=== PATIENT | female | born 1960 | race Caucasian/White ===

== ENCOUNTER 2016-05-11 14:49 | Inpatient (IN) | payer OTHER, BC ==
[~2016-05-11] VITALS: Ht 162.6 cm; Wt 77.1 kg
[~2016-05-11 14:49] MED LIST: ACET-1256 PO; ACT/45 PO; AMLO2.5T PO; AMR2 PO; ASPCH81X PO; CALC0.2510 PO; CHOL100010 PO; CYCL25CA5 PO; DENO60SO PO; DEXL30CA5 PO; DTRSR4 PO; FAMO20TA9 PO; FLNIN/ NAE; GLC/500 PO; HYDROCODONE/ACETAMOPHEN 5/325MG TAB PO PRN; ISOS30TA35 PO; LUTE15CA PO; MELA1CAP9 PO; MULT-190 PO; MULTTAB PO; MYCO250C7 PO; NITR0.4S UT; NRN/300 PO; OMEG10007 PO; PRVC/20 PO; REPA1TAB10 PO; SITA50TA PO; TPRSR/25 PO; TRAMADOL HCL 50 MG TAB PO PRN
[2016-05-11] MEDS ORDERED: DEXTROSE 50% 50 ML SYR IV PRN (15:45)
[2016-05-11] MEDS ORDERED: LORAZEPAM 2 MG/ML 1 ML VIAL IV PRN ×2 (15:45→17:45)
[2016-05-11] MEDS ORDERED: GLUCOSE 40% GEL 15 GM TUBE PO PRN (15:45)
[2016-05-11] MEDS ORDERED: MAGNESIUM HYDROXIDE SUSP 30 ML UDC PO PRN (15:45)
[2016-05-11] MEDS ORDERED: ACETAMINOPHEN 325 MG TAB PO PRN ×2 (15:45)
[2016-05-11] MEDS ORDERED: MoRPHine SULFATE 4 MG/ML 1 ML CARP\\VIAL IV PRN (15:45)
[2016-05-11] MEDS ORDERED: ALUMINUM/MAGNESIUM/SIMETH (MAALOX MAX) 30 ML UDC PO PRN (15:45)
[2016-05-11] MEDS ORDERED: PROMETHAZINE HCL INJ 12.5 MG in SODIUM CHLORIDE 0.9% 50ML 50 ML IV PRN (15:45)
[2016-05-11] MEDS ORDERED: MoRPHine SULFATE 2 MG/ML CARP IV PRN (15:45)
[2016-05-11] MEDS ORDERED: DiphenhydrAMINE HCL 50 MG/ML VIAL IV PRN (15:45)
[2016-05-11] MEDS ORDERED: GLUCOSE 10 TABS/TUBE PO PRN (15:45)
[2016-05-11] MEDS ORDERED: ZOLPIDEM TARTRATE 5 MG TAB PO PRN ×2 (15:45)
[2016-05-11] MEDS ORDERED: ONDANSETRON INJ 2 MG/ML 2 ML VIAL IV PRN (15:45)
[2016-05-11] MEDS ORDERED: GLUCAGON FOR INJ 1 MG VIAL SQ PRN (15:45)
[2016-05-11 16:00] VITALS: BP 134/83; PULSE 63; TEMP 36.5; O2SAT 90
[2016-05-11] MEDS ORDERED: NITROGLYCERIN 0.4 MG SL PER TAB CHARGE UT PRN (16:00)
[2016-05-11] MEDS ORDERED: INSULIN GLARGINE SOLOSTAR 100 UNITS/ML 3 ML PEN SC SCH (16:15)
[2016-05-11] MEDS ORDERED: ARTIFICIAL TEARS OP SOLN OP PRN ×2 (16:15)
[2016-05-11] MEDS ORDERED: LORAZEPAM INJ 0.5 MG in SYRINGE 0.75 ML IV PRN (17:45)
[2016-05-11 18:07] VITALS: BP 134/83; PULSE 63; TEMP 36.5; Ht 162.6 cm; Wt 77.1 kg
[2016-05-11] MEDS: INSULIN ASPART 100 UNITS/ML 3 ML PEN SC SCH ×2 (19:23→21:20)
[2016-05-11 19:54] LABS: BASO % 0.4 %; BASO ABS # 0.03 K/uL (0-0.2); COMPLETE YES; HEMATOCRIT 37.3 % (37-47); IG% 0.2 %; MEAN CELL VOLUME 88.4 fL (80-100); MEAN CORPUSCULAR HEMOGLOBIN 30.1 pg (25-34); MEAN PLATELET VOLUME 10.7 fL (7.4-10.4); MONO % 11.1 %; NEUT % 67.3 %; PLATELET COUNT 248 K/uL (130-400); RED BLOOD COUNT 4.22 M/uL (4.2-5.4); WHITE BLOOD COUNT 8.02 K/uL (4.8-10.8)
[2016-05-11 20:01] VITALS: BP 136/85; PULSE 71; TEMP 37; O2SAT 98
[2016-05-11 20:04] LABS: PROTHROMBIN TIME (PATIENT) 10.9 SECONDS (9.0-12.0)
[2016-05-11 20:14] VITALS: BP 124/71
[2016-05-11 20:25] LABS: ALT/SGPT 19 U/L (12-78); AST/SGOT 8 U/L (15-37); BLOOD UREA NITROGEN 45 mg/dl (7-18); BUN/CREATININE RATIO 23.5 (10-20); CARBON DIOXIDE 26 mmol/L (21-32); CHLORIDE 99 mmol/L (98-107); GLUCOSE 279 mg/dl (70-99); POTASSIUM 3.9 mmol/L (3.5-5.1); SODIUM 137 mmol/L (136-145)
[2016-05-11 20:28] LABS: ALB/GLOB RATIO 0.9 (0.9-2); ALKALINE PHOSPHATASE 84 U/L (45-117)
--- NOTE | 2016-05-11 20:41 | History and Physical ---
History & Physical Date & Time of Service: May 11, 2016 at 20:25 Chief Complaint: Multi Drug Resistant Ecoli Uti Primary Care Physician: Rachele Briones M.D. History of Present Illness Source: patient, clinic records The patient is a 56-year-old female referred from Dr. Jaramillo office for direct admission due to a MDRO Escherichia coli UTI. She had been empirically started on Cipro the outpatient setting, but upon being seen in the outpatient office today the above was noted, and she was referred for direct admission. The patient has noted some increased urinary frequency and dysuria, but no hematuria. She's also had some increase in generalized myalgias and arthralgias. Past Medical/Surgical History Medical Problems: (1) Anxiety Status: Chronic (2) Attention deficit hyperactivity disorder Status: Chronic (3) Benign hypertension Status: Chronic (4) Borderline personality disorder Status: Chronic (5) Cerebrovascular disease Permanent Comment: s/p stroke Status: Chronic (6) Coronary artery disease Status: Chronic (7) Diabetes mellitus type 2 Status: Chronic (8) Gastroesophageal reflux disease Status: Chronic (9) Hyperparathyroidism Status: Chronic (10) Kidney transplant status, cadaveric Status: Chronic (11) Osteoporosis Status: Chronic (12) Schizoaffective disorder Status: Chronic (13) Sleep apnea Status: Chronic (14) Systemic lupus erythematosus Status: Chronic Surgical Problems: (1) Status post coronary artery stent placement Permanent Comment: RCA 2005 Status: Chronic (2) Status post kidney transplant Permanent Comment: cadaveric transplant, 1998 Status: Chronic (3) Status post parathyroidectomy Status: Chronic Family History FH: dementia MOTHER FH: diabetes mellitus SISTER GRANDMOTHER FH: heart disease FATHER MOTHER FH: lung cancer FATHER FH: rheumatoid arthritis SISTER FHx: heart disease Social History Smoking Status: Never Smoker Smokeless Tobacco Use: No Alcohol Use: none Drug Use: none Marital Status: single Housing status: lives alone Occupational Status: disabled Immunizations History of Influenza Vaccine: Yes History of Tetanus Vaccine?: Unknown History of Pneumococcal: Yes Pneumococcal Date: Jun 23, 2001 History of Hepatitis B Vaccine: Unknown Multi-Drug Resistant Organisms History of MDRO: Yes Type of MDRO: other (MDRO E. coli in urine) Allergies Coded Allergies: Penicillins (Unverified Allergy, Mild, ITCHY, ANXIETY, 12/23/15) Loperamide (Verified Allergy, Unknown, 12/23/15) Vancomycin (Verified Allergy, Unknown, 12/23/15) Ziprasidone (Verified Allergy, Unknown, itching, 12/23/15) Home Medications Scheduled Acetaminophen (Tylenol), 2 TAB PO Q6 Amlodipine (Norvasc), 2.5 MG PO QAM Aspirin (Aspirin Chewable), 81 MG PO QAM Calcitriol (Rocaltrol Cap), 0.25 MCG PO 3XWK Cholecalciferol (Vitamin D), 1,000 INTER.UNIT PO QAM Cyclosporine (Neoral), 50 MG PO BID Denosumab (Prolia), 60 MG PO [id number] Dexlansoprazole (Dexilant), 30 MG PO QAM Famotidine (Pepcid), 20 MG PO BID Fish Oil ([place]-3), 1 CAP PO BID Fluticasone Propionate (Fluticasone Propionate), 2 SPRAYS CECILE QAM Gabapentin (Neurontin), 900 MG PO QPM Glimepiride (Glimepiride), 3 MG PO QAM Isosorbide Mononitrate Ext Rel (Imdur Ext Rel), 30 MG PO QAM Lutein-Zeaxanthin (Lutein), 1 TAB PO QAM Melatonin (Melatonin), 1 CAP PO DAILY Metformin Hcl (Glucophage), 500 MG PO BID Metoprolol Succinate (Metoprolol Succinate ER), 1 TAB PO QAM Multivitamins/Minerals (Mvi With Minerals), 1 TAB PO DAILY Mycophenolate Mofetil (Mycophenolate Mofetil), 500 MG PO TID Ocuvite Preservision (Ocuvite Preservision), 1 TABLET PO BID Pravastatin Sod (Pravastatin Sodium), 20 MG PO QAM Repaglinide (Repaglinide), 4 MG PO TID Sitagliptin Phosphate (Januvia), 50 MG PO QAM Tolterodine Tartrate (Detrol LA), 1 CAP PO QAM Scheduled PRN Nitroglycerin (Nitrostat), 0.4 MG UT UD PRN for Chest Pain Pioglitazone Hcl (Actos), 45 MG PO UD PRN for BLOOD SUGAR GREATER THAN 200 Review of Systems The patient denies chest pain, palpitations, shortness of breath, cough, lower extremity swelling, vision change, hearing change, sore throat, fevers, chills, sweats, weight change, nausea, vomiting, abdominal pain, pelvic pain, blood in urine or stool, lightheadedness, dizziness, headache, memory loss, rash, abnormal bruising or bleeding, imbalance, focal weakness, numbness or tingling in arms or legs, night sweats, or allergy symptoms. The review of systems is otherwise negative other than for that already noted above, and at least 10 systems have been reviewed. Physical Exam Vital Signs Date Time Temp Pulse Resp B/P Pulse Ox O2 Delivery O2 Flow Rate FiO2 05/11/16 20:14 124/71 05/11/16 20:01 37.0 71 18 136/85 98 Room Air 05/11/16 16:00 36.5 63 18 134/83 90 Room Air The patient is awake, well-developed and adequately nourished, alert and oriented 3, normocephalic and atraumatic, lying in bed and in no acute distress. HEENT--PERRL, EOMI, mucous membranes and oropharynx dry. Neck--supple, no JVD or bruits, thyroid normal, trachea midline, no adenopathy. Heart--normal S1 and S2, no extra beats, no murmurs, rubs or gallops. Lungs--clear bilaterally, no respiratory distress, no accessory muscle use. Abdomen--normal bowel sounds and soft, nontender and nondistended, no hernias or masses, no organomegaly. Extremities--no cyanosis, clubbing or edema. There are good distal pulses b/l. Dermatologic--normal skin turgor, normal color, warm and dry, no abnormal lymph nodes, no rash. Neurologic--cranial nerves II through XII grossly intact, motor and sensory examination normal. Rheumatologic--normal range of motion, nontender, muscles and joints. Psychiatric--normal affect. Diagnostics Laboratory Results Results Past 24 Hours Test 05/11/16 17:01 05/11/16 17:12 05/11/16 19:38 Range/Units Bedside Glucose 295 70-90 mg/dl White Blood Count 8.02 4.8-10.8 K/uL Red Blood Count 4.22 4.2-5.4 M/uL Hemoglobin 12.7 12.0-16.0 g/dL Hematocrit 37.3 37-47 % Mean Corpuscular Volume 88.4 80-100 fL Mean Corpuscular Hemoglobin 30.1 25-34 pg Mean Corpuscular Hemoglobin Concent 34.0 32-36 g/dl Platelet Count 248 130-400 K/uL Mean Platelet Volume 10.7 7.4-10.4 fL Neutrophils (%) (Auto) 67.3 % Lymphocytes (%) (Auto) 20.0 % Monocytes (%) (Auto) 11.1 % Eosinophils (%) (Auto) 1.0 % Basophils (%) (Auto) 0.4 % Neutrophils # (Auto) 5.40 1.4-6.5 K/uL Lymphocytes # (Auto) 1.60 1.2-3.4 K/uL Monocytes # (Auto) 0.89 0.11-0.59 K/uL Eosinophils # (Auto) 0.08 0-0.5 K/uL Basophils # (Auto) 0.03 0-0.2 K/uL RDW Standard Deviation 41.8 36.4-46.3 fL RDW Coefficient of Variation 13.0 11.5-14.5 % Immature Granulocyte % (Auto) 0.2 % Immature Granulocyte # (Auto) 0.02 0.00-0.02 K/uL Prothrombin Time 10.9 9.0-12.0 SECONDS Prothromb Time International Ratio 1.0 0.9-1.1 Microbiology Results 05/11/16 Blood Culture, Received Pending 05/11/16 Blood Culture, Received Pending Impression Assessment and Plan MDRO Escherichia coli UTI--the patient will be admitted to the medical floor. She'll be placed on ertapenem 1 g IV every 24 hours, and normal saline with potassium chloride 20 mEq at 100 ML's per hour. We'll repeat urinalysis and urine culture sensitivity before antibiotics are started today, we'll also check a CBC with differential and chemistry profile. CAD/hypertension--continue amlodipine 2.5 mg by mouth daily, aspirin 81 mg by mouth daily, isosorbide mononitrate ER 30 mg by mouth every morning, metoprolol succinate ER 25 mg by mouth daily, nitroglycerin 0.4 mg sublingually when necessary. Diabetes mellitus--hold Invokana 100 mg by mouth daily. We'll continue Januvia 50 mg by mouth daily, and change Lantus from 20 units subcutaneous every afternoon to 10 units subcutaneous twice a day. We'll place on Accu-Cheks before meals and at bedtime with NovoLog coverage. Next Status post kidney transplant--continue cyclosporine 50 mg by mouth every 12 hours, mycophenolate 500 mg by mouth 3 times a day, calcitriol 0.25 g by mouth on Friday, Friday and Friday, calcium 1000 mg by mouth daily, vitamin D3 1000 and has units by mouth daily. Hold Prolia subcutaneous every 6 months. GERD--change Dexilant 30 mg by mouth daily to pantoprazole 40 mg by mouth daily , and continue famotidine but change from 40 mg by mouth daily to 20 mg by mouth twice a day. Hypercholesterolemia--continue pravastatin 20 mg by mouth daily, and omega-3 fatty acids 1000 mg by mouth twice a day. Bladder spasm--continue Detrol LA 4 mg by mouth daily. Peripheral neuropathy--continue gabapentin 3 mg by mouth daily. Allergic rhinitis--continue fluticasone nasal spray 2 sprays each nostril daily. Dry eye--continue artificial tears due to drops each eye every 2 hours when necessary. Nutraceutical--continue lutein 20 mg by mouth daily, multivitamin 1 by mouth daily, Ocuvite 1 by mouth daily and magnesium 133 mg by mouth 3 times a day. Level of Care Med/Surg Advanced Directives Existing Advance Directive: No Existing Living Will: No Existing Power of Sales Promotion Director: No Resuscitation Status FULL RESUSCITATION VTE Prophylaxis VTE Risk Assessment Done? Y/N: Yes Risk Level: Moderate Given or contraindicated: SCD's
[2016-05-11] MEDS ORDERED: FAMOTIDINE 20 MG TAB PO SCH (21:00)
[2016-05-11] MEDS: TRAMADOL HCL 50 MG TAB PO PRN (21:09)
[2016-05-11] MEDS: MYCOPHENOLATE MOFETIL 250 MG CAP (CELLCEPT) PO SCH (21:11)
[2016-05-11] MEDS: CEROVITE ADV FORMULA TAB PO SCH (21:11)
[2016-05-11] MEDS: CycloSPORINE (NEORAL) 25 MG CAP PO SCH (21:13)
[2016-05-11] MEDS: OMEGA-3 (PURIFIED FISH OIL) 1 GM CAP PO SCH (21:13)
[2016-05-11] MEDS: FAMOTIDINE 20 MG TAB PO SCH (21:15)
[2016-05-11] MEDS: INSULIN GLARGINE SOLOSTAR 100 UNITS/ML 3 ML PEN SC SCH (21:21)
[2016-05-11 21:45] VITALS: BP 138/86; PULSE 62; TEMP 37.1; O2SAT 97
[2016-05-11] MEDS: ERTAPENEM IV 1 GM in SODIUM CHLOR 0.9% AD-VAN 50ML 50 ML IV SCH (22:45)
[2016-05-11 23:24] VITALS: BP 130/78; PULSE 62; TEMP 36.9; O2SAT 93
[2016-05-12 02:10] LABS: URINE APPEARANCE CLOUDY (CLEAR); URINE BILIRUBIN NEG (NEG); URINE COLOR YELLOW; URINE NITRITE POS (NEG); URINE SPECIFIC GRAVITY 1.021 (1.000-1.030); UROBILINOGEN NEG (NEG)
[2016-05-12 02:18] LABS: MANUAL MICROSCOPIC REQUIRED? NO; REVIEW REQ? NO
[2016-05-12 06:52] LABS: BASO % 0.4 %; BASO ABS # 0.03 K/uL (0-0.2); COMPLETE YES; EOS % 0.6 %; HEMATOCRIT 35.1 % (37-47); IG% 0.2 %; LYMPH % 15.2 %; LYMPH ABS # 1.23 K/uL (1.2-3.4); MEAN CELL VOLUME 88.2 fL (80-100); MEAN CORPUSCULAR HEMOGLOBIN 30.2 pg (25-34); MEAN CORPUSCULAR HGB CONC 34.2 g/dl (32-36); MEAN PLATELET VOLUME 10.4 fL (7.4-10.4); MONO % 14.3 %; NEUT % 69.3 %; PLATELET COUNT 211 K/uL (130-400); RED BLOOD COUNT 3.98 M/uL (4.2-5.4); WHITE BLOOD COUNT 8.09 K/uL (4.8-10.8)
[2016-05-12 06:59] LABS: PARTIAL THROMBOPLASTIN RATIO 1.1; PROTHROMBIN TIME (PATIENT) 10.8 SECONDS (9.0-12.0)
[2016-05-12 07:17] LABS: BUN/CREATININE RATIO 23.2 (10-20); CALCIUM 8.5 mg/dl (8.5-10.1); CREATININE 1.7 mg/dl (0.60-1.20); POTASSIUM 4.1 mmol/L (3.5-5.1)
[2016-05-12 07:36] VITALS: BP 126/75; PULSE 70; TEMP 37.1; O2SAT 90
[2016-05-12] MEDS: PRAVASTATIN SOD 20 MG TAB PO SCH (08:14)
[2016-05-12] MEDS: SITAGLIPTIN 25 MG TAB PO SCH (08:14)
[2016-05-12] MEDS: ASPIRIN 81 MG ECTAB PO SCH (08:14)
[2016-05-12] MEDS: CHOLECALCIFEROL 1000 INTER.UNIT TAB PO SCH (08:14)
[2016-05-12] MEDS: FAMOTIDINE 20 MG TAB PO SCH ×2 (08:14→21:28)
[2016-05-12] MEDS: OMEGA-3 (PURIFIED FISH OIL) 1 GM CAP PO SCH ×2 (08:14→21:28)
[2016-05-12] MEDS: AMLODIPINE BESYLATE 5 MG TAB PO SCH (08:15)
[2016-05-12] MEDS: PANTOprazole SOD 40 MG TAB PO SCH (08:15)
[2016-05-12] MEDS: METOPROLOL SUCC 25MG EXT REL TAB PO SCH (08:15)
[2016-05-12] MEDS: ISOSORBIDE MONONITRATE 30 MG TABCR PO SCH (08:15)
[2016-05-12] MEDS: TOLTERODINE TARTRATE LA 4 MG CAPCR PO SCH (08:15)
[2016-05-12] MEDS: CEROVITE ADV FORMULA TAB PO SCH ×2 (08:16→21:26)
[2016-05-12] MEDS: MYCOPHENOLATE MOFETIL 250 MG CAP (CELLCEPT) PO SCH ×3 (08:16→21:26)
[2016-05-12] MEDS: CycloSPORINE (NEORAL) 25 MG CAP PO SCH ×2 (08:16→21:27)
[2016-05-12] MEDS: FLUTICASONE PROPIONATE NA SPR 16 GM BTL NAE SCH (08:17)
[2016-05-12] MEDS: INSULIN ASPART 100 UNITS/ML 3 ML PEN SC SCH ×4 (08:43→21:00)
[2016-05-12] MEDS: INSULIN GLARGINE SOLOSTAR 100 UNITS/ML 3 ML PEN SC SCH ×2 (08:43→21:35)
[2016-05-12] MEDS ORDERED: INSULIN GLARGINE SOLOSTAR 100 UNITS/ML 3 ML PEN SC SCH (09:00)
[2016-05-12] MEDS ORDERED: MELATONIN PO SCH (09:00)
[2016-05-12] MEDS ORDERED: LUTEIN ZEAXANTHIN PO SCH (09:00)
[2016-05-12] MEDS ORDERED: CEROVITE ADV FORMULA TAB PO SCH (09:00)
[2016-05-12 16:00] VITALS: BP 118/73; PULSE 60; TEMP 37.3; O2SAT 94
--- NOTE | 2016-05-12 17:47 | Progress Note ---
Subjective Date of Service: May 12, 2016. Subjective Pt evaluation today including: conversation w/ patient, physical exam, chart review, lab review, review of inpatient medication list Problem List Medical Problems: (1) Immunosuppression Status: Acute (2) Mood disorder Status: Acute (3) Renal insufficiency Status: Acute (4) Sepsis Status: Acute (5) Thrombocytopenia Status: Acute Review of Systems Constitutional: No chills, No fatigue, No fever, No problem reported, No see HPI, No sweats, No weakness, No weight loss Eyes: No diplopia, No discharge, No eye pain, No problem reported, No redness, No see HPI, No worsening of vision ENT: No dental problems, No hearing loss, No nasal symptoms, No problem reported, No see HPI, No sore throat, No tinnitus, No trouble swallowing, No unusual epistaxis Respiratory: No cough, No dyspnea at rest, No dyspnea on exertion, No hemoptysis, No problem reported, No see HPI, No shortness of breath, No sputum, No wheezing Cardiac: No PND, No chest pain, No claudication, No edema, No orthopnea, No palpitations, No problem reported, No see HPI Abdomen: No GI bleeding, No constipation, No diarrhea, No nausea, No pain, No problem reported, No see HPI, No vomiting Musculoskeletal: No calf pain, No joint pain, No muscle pain, No problem reported, No see HPI, No swelling Neurologic: No balance problems, No memory loss, No numbness/tingling, No paralysis, No problem reported, No see HPI, No vertigo, No weakness Psychiatric: No anhedonism, No anxiety, No depression symptoms, No insomnia, No problem reported, No see HPI, No substance abuse Heme: No abnormal bleeding/bruising, No clotting problems, No night sweats, No problem reported, No see HPI, No swollen lymph nodes Endo: No excessive thirst, No excessive urination, No fatigue, No problem reported, No see HPI Skin: No bleeding, No color change, No itch, No new/changing skin lesions, No problem reported, No rash, No see HPI Objective Vital Signs Date Time Temp Pulse Resp B/P Pulse Ox O2 Delivery O2 Flow Rate FiO2 05/12/16 16:00 37.3 60 18 118/73 94 Room Air 05/12/16 08:00 Room Air 05/12/16 07:36 37.1 70 17 126/75 90 Room Air 05/12/16 00:30 Room Air 05/11/16 23:24 36.9 62 16 130/78 93 Room Air 05/11/16 21:45 37.1 62 18 138/86 97 Room Air 05/11/16 20:14 124/71 05/11/16 20:01 37.0 71 18 136/85 98 Room Air 05/11/16 18:07 36.5 63 18 134/83 Room Air Physical Exam General Appearance: no apparent distress Eyes: normal inspection, PERRL ENT: normal ENT inspection, hearing grossly normal Neck: supple Respiratory/Chest: chest non-tender, lungs clear, normal breath sounds, no respiratory distress, no accessory muscle use Cardiovascular: regular rate, rhythm, no edema, no gallop, no JVD, no murmur Abdomen: normal bowel sounds, non tender, soft, no organomegaly Extremities: normal range of motion, non-tender, normal inspection, no pedal edema, no calf tenderness Neurologic/Psychiatric: waste cotton cleaner II-XII nml as tested, no motor/sensory deficits, alert, normal mood/affect, + pertinent finding (more oriented today and less confuse) Skin: normal color, warm/dry, no rash Laboratory Results Last 24 Hours Test 05/11/16 19:38 05/11/16 20:40 05/11/16 23:23 05/12/16 01:10 White Blood Count 8.02 K/uL Red Blood Count 4.22 M/uL Hemoglobin 12.7 g/dL Hematocrit 37.3 % Mean Corpuscular Volume 88.4 fL Mean Corpuscular Hemoglobin 30.1 pg Mean Corpuscular Hemoglobin Concent 34.0 g/dl Platelet Count 248 K/uL Mean Platelet Volume 10.7 fL Neutrophils (%) (Auto) 67.3 % Lymphocytes (%) (Auto) 20.0 % Monocytes (%) (Auto) 11.1 % Eosinophils (%) (Auto) 1.0 % Basophils (%) (Auto) 0.4 % Neutrophils # (Auto) 5.40 K/uL Lymphocytes # (Auto) 1.60 K/uL Monocytes # (Auto) 0.89 K/uL Eosinophils # (Auto) 0.08 K/uL Basophils # (Auto) 0.03 K/uL RDW Standard Deviation 41.8 fL RDW Coefficient of Variation 13.0 % Immature Granulocyte % (Auto) 0.2 % Immature Granulocyte # (Auto) 0.02 K/uL Prothrombin Time 10.9 SECONDS Prothromb Time International Ratio 1.0 Sodium Level 137 mmol/L Potassium Level 3.9 mmol/L Chloride Level 99 mmol/L Carbon Dioxide Level 26 mmol/L Anion Gap 12.0 mmol/L Blood Urea Nitrogen 45 mg/dl Creatinine 1.90 mg/dl Estimated GFR () 33.3 Estimated GFR (Non- 28.8 BUN/Creatinine Ratio 23.5 Random Glucose 279 mg/dl Calcium Level 9.0 mg/dl Total Bilirubin 0.4 mg/dl Aspartate Amino Transf (AST/SGOT) 8 U/L Alanine Aminotransferase (ALT/SGPT) 19 U/L Alkaline Phosphatase 84 U/L Total Protein 7.2 gm/dl Albumin 3.4 gm/dl Globulin 3.8 gm/dl Albumin/Globulin Ratio 0.9 Bedside Glucose 185 mg/dl Troponin I < 0.015 ng/ml Urine Color YELLOW Urine Appearance CLOUDY Urine pH 6.0 Urine Specific Frontier 1.021 Urine Protein TRACE Urine Glucose (UA) NEG Urine Ketones NEG Urine Occult Blood NEG Urine Nitrite POS Urine Bilirubin NEG Urine Urobilinogen NEG Urine Leukocyte Esterase MODERATE Urine WBC (Auto) >30 /hpf Urine RBC (Auto) 0-4 /hpf Urine Hyaline Casts (Auto) 1-5 /lpf Urine Epithelial Cells (Auto) 10-20 /lpf Urine Bacteria (Auto) 2+ Test 05/12/16 06:30 05/12/16 08:11 05/12/16 11:32 05/12/16 17:00 White Blood Count 8.09 K/uL Red Blood Count 3.98 M/uL Hemoglobin 12.0 g/dL Hematocrit 35.1 % Mean Corpuscular Volume 88.2 fL Mean Corpuscular Hemoglobin 30.2 pg Mean Corpuscular Hemoglobin Concent 34.2 g/dl Platelet Count 211 K/uL Mean Platelet Volume 10.4 fL Neutrophils (%) (Auto) 69.3 % Lymphocytes (%) (Auto) 15.2 % Monocytes (%) (Auto) 14.3 % Eosinophils (%) (Auto) 0.6 % Basophils (%) (Auto) 0.4 % Neutrophils # (Auto) 5.60 K/uL Lymphocytes # (Auto) 1.23 K/uL Monocytes # (Auto) 1.16 K/uL Eosinophils # (Auto) 0.05 K/uL Basophils # (Auto) 0.03 K/uL RDW Standard Deviation 41.7 fL RDW Coefficient of Variation 12.9 % Immature Granulocyte % (Auto) 0.2 % Immature Granulocyte # (Auto) 0.02 K/uL Prothrombin Time 10.8 SECONDS Prothromb Time International Ratio 1.0 Activated Partial Thromboplast Time 28.0 SECONDS Partial Thromboplastin Ratio 1.1 Sodium Level 139 mmol/L Potassium Level 4.1 mmol/L Chloride Level 104 mmol/L Carbon Dioxide Level 24 mmol/L Anion Gap 11.0 mmol/L Blood Urea Nitrogen 39 mg/dl Creatinine 1.70 mg/dl Est Creatinine Clear Calc Drug Dose 36.7 ml/min Estimated GFR () 38.1 Estimated GFR (Non- 32.9 BUN/Creatinine Ratio 23.2 Random Glucose 116 mg/dl Calcium Level 8.5 mg/dl Magnesium Level 2.0 mg/dl Total Bilirubin 0.5 mg/dl Direct Bilirubin 0.1 mg/dl Aspartate Amino Transf (AST/SGOT) 10 U/L Alanine Aminotransferase (ALT/SGPT) 17 U/L Alkaline Phosphatase 82 U/L Total Protein 6.5 gm/dl Albumin 3.0 gm/dl Bedside Glucose 155 mg/dl 127 mg/dl 185 mg/dl Assessment and Plan 56-year-old female with frequency and dysuria referred from Dr. Jaramillo office for direct admission due to a MDRO Escherichia coli UTI. MDRO complicated Escherichia coli UTI present on admission (no fever or leukocytosis but had clinical symptoms of UTI in the setting of immune compromised status ) continue ertapenem 1 g IV every 24 hours F/U repeat UA and Ucx/BCx Retrieve sensitivity from Dr. Jaramillo office on Friday might need urologic evaluation as an out patient will require 14 days treatment of complicated UTI Possible IRIS in transplanted kidney Creatinine is 1.9 (was 1.2 in 12/2015) continue IVF hydration CAD/hypertension continue amlodipine 2.5 / spirin / isosorbide mononitrate/ metoprolol succinate ER 25 mg/. Diabetes mellitus hold Invokana 100 mg by mouth daily. continue Januvia 50 mg by mouth daily, hange Lantus from 20 units daily to 10 units BID SSI HgbA1C to stratify her immunity status Status post kidney transplant continue cyclosporine 50 mg by mouth every 12 hours, mycophenolate 500 mg by mouth 3 times a day, calcitriol 0.25 g by mouth on Friday, Friday and Friday Continue calcium and vit D supplement, Hold Prolia subcutaneous every 6 months. GERD continue pantoprazole 40 mg by mouth daily and continue famotidine 20 mg by mouth twice a day. Adjusted on admission Hypercholesterolemia continue pravastatin/omega-3 fatty acids Bladder spasm continue Detrol LA 4 mg by mouth daily. Peripheral neuropathy continue gabapentin 3 mg by mouth daily. Allergic rhinitis continue fluticasone nasal spray 2 sprays each nostril daily. Dry eye continue artificial tears due to drops each eye every 2 hours when necessary. Nutraceutical continue lutein 20 mg by mouth daily, multivitamin 1 by mouth daily, Ocuvite 1 by mouth daily and magnesium 133 mg by mouth 3 times a day. Dvt prophylaxis Heparin SQ BID
[2016-05-12] MEDS: ERTAPENEM IV 1 GM in SODIUM CHLOR 0.9% AD-VAN 50ML 50 ML IV SCH (21:30)
[2016-05-12] MEDS: HEPARIN SOD 5000 UNIT/0.5 ML CARP SQ SCH (21:36)
[2016-05-12] MEDS: TRAMADOL HCL 50 MG TAB PO PRN (22:00)
[2016-05-12 22:50] VITALS: BP 138/74; PULSE 65; TEMP 37.1; O2SAT 92
[2016-05-13 06:55] LABS: BASO % 0.5 %; BASO ABS # 0.03 K/uL (0-0.2); COMPLETE YES; EOS % 1.2 %; HEMATOCRIT 34.8 % (37-47); IG% 0.3 %; LYMPH % 26.5 %; LYMPH ABS # 1.57 K/uL (1.2-3.4); MEAN CELL VOLUME 86.6 fL (80-100); MEAN CORPUSCULAR HEMOGLOBIN 29.6 pg (25-34); MEAN CORPUSCULAR HGB CONC 34.2 g/dl (32-36); MONO % 18.4 %; NEUT % 53.1 %; PLATELET COUNT 211 K/uL (130-400); RED BLOOD COUNT 4.02 M/uL (4.2-5.4); WHITE BLOOD COUNT 5.92 K/uL (4.8-10.8)
[2016-05-13 06:56] VITALS: BP 132/78; PULSE 66; TEMP 36.7; O2SAT 92
[2016-05-13 07:07] LABS: PARTIAL THROMBOPLASTIN RATIO 1.2; PROTHROMBIN TIME (PATIENT) 10.9 SECONDS (9.0-12.0)
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
[2016-05-13 07:38] LABS: ALB/GLOB RATIO 0.8 (0.9-2); ALKALINE PHOSPHATASE 79 U/L (45-117); ALT/SGPT 15 U/L (12-78); AST/SGOT 6 U/L (15-37); BLOOD UREA NITROGEN 26 mg/dl (7-18); BUN/CREATININE RATIO 18.3 (10-20); CALCIUM 8.9 mg/dl (8.5-10.1); CARBON DIOXIDE 25 mmol/L (21-32); CHLORIDE 103 mmol/L (98-107); GLUCOSE 118 mg/dl (70-99); MAGNESIUM 2.1 mg/dl (1.8-2.4); PHOSPHORUS 3.4 mg/dl (2.5-4.9); POTASSIUM 3.9 mmol/L (3.5-5.1); SODIUM 140 mmol/L (136-145)
[2016-05-13 08:25] LABS: ESTIMATED AVERAGE GLUCOSE 197 mg/dl; HA1C FLAG Normal (Normal)
[2016-05-13] MEDS ORDERED: CALCITRIOL 0.25 MCG CAP PO SCH (09:00)
[2016-05-13] MEDS: FLUTICASONE PROPIONATE NA SPR 16 GM BTL NAE SCH (09:09)
[2016-05-13] MEDS: AMLODIPINE BESYLATE 5 MG TAB PO SCH (09:10)
[2016-05-13] MEDS: PRAVASTATIN SOD 20 MG TAB PO SCH (09:10)
[2016-05-13] MEDS: ASPIRIN 81 MG ECTAB PO SCH (09:10)
[2016-05-13] MEDS: CEROVITE ADV FORMULA TAB PO SCH (09:10)
[2016-05-13] MEDS: METOPROLOL SUCC 25MG EXT REL TAB PO SCH (09:11)
[2016-05-13] MEDS: ISOSORBIDE MONONITRATE 30 MG TABCR PO SCH (09:11)
[2016-05-13] MEDS: TOLTERODINE TARTRATE LA 4 MG CAPCR PO SCH (09:11)
[2016-05-13] MEDS: CHOLECALCIFEROL 1000 INTER.UNIT TAB PO SCH (09:11)
[2016-05-13] MEDS: SITAGLIPTIN 25 MG TAB PO SCH (09:12)
[2016-05-13] MEDS: OMEGA-3 (PURIFIED FISH OIL) 1 GM CAP PO SCH (09:12)
[2016-05-13] MEDS: FAMOTIDINE 20 MG TAB PO SCH (09:12)
[2016-05-13] MEDS: PANTOprazole SOD 40 MG TAB PO SCH (09:12)
[2016-05-13] MEDS: CycloSPORINE (NEORAL) 25 MG CAP PO SCH (09:12)
[2016-05-13] MEDS: MYCOPHENOLATE MOFETIL 250 MG CAP (CELLCEPT) PO SCH ×2 (09:13→13:01)
[2016-05-13] MEDS: INSULIN ASPART 100 UNITS/ML 3 ML PEN SC SCH ×2 (09:23→13:00)
[2016-05-13] MEDS: INSULIN GLARGINE SOLOSTAR 100 UNITS/ML 3 ML PEN SC SCH (09:24)
[2016-05-13] MEDS: HEPARIN SOD 5000 UNIT/0.5 ML CARP SQ SCH (09:25)
[2016-05-13] MEDS ORDERED: CANA1TAB PO (09:53)
[2016-05-13] MEDS ORDERED: INSDGIPEN SC (09:53)
[2016-05-13 15:28] VITALS: BP_SYST 106; BP_SYST 147; BP_DIAS 65; BP_DIAS 75; PULSE 61; PULSE 82; TEMP 36.9; TEMP 37; O2SAT 92; O2SAT 93
[2016-05-13] MEDS ORDERED: GABAPENTIN 300 MG CAP PO SCH (21:00)
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
== END 2016-05-13 16:30 | disposition left against medical advice (07) | DRG 683 ==
LOC: C.MSN 15:22
PROVIDERS: ADMIT Hospitalist; ATTEND Physician Assistant
DX: N17.9 Acute kidney failure, unspecified (principal); N39.0 Urinary tract infection, site not specified; Z94.0 Kidney transplant status; Z53.21 Procedure and treatment not carried out due to patient leaving prior to being seen by health care provider; B96.20 Unspecified Escherichia coli [E. coli] as the cause of diseases classified elsewhere; Z16.24 Resistance to multiple antibiotics; N32.89 Other specified disorders of bladder; I10 Essential (primary) hypertension; E11.42 Type 2 diabetes mellitus with diabetic polyneuropathy; K21.9 Gastro-esophageal reflux disease without esophagitis; E78.00 Pure hypercholesterolemia, unspecified; E89.2 Postprocedural hypoparathyroidism; J30.9 Allergic rhinitis, unspecified; I25.10 Atherosclerotic heart disease of native coronary artery without angina pectoris; H04.129 Dry eye syndrome of unspecified lacrimal gland; Z95.5 Presence of coronary angioplasty implant and graft; Z86.73 Personal history of transient ischemic attack (TIA), and cerebral infarction without residual deficits; Z79.82 Long term (current) use of aspirin; Z79.84 Long term (current) use of oral hypoglycemic drugs; Z79.899 Other long term (current) drug therapy

== ENCOUNTER → 2016-06-18 | Outpatient (CLI) | payer OTHER, BC ==
[~2016-06-18] MED LIST changes: -ACT/45 PO; +CANA1TAB PO; +CARV12.52 PO; +CEFD1CAP14 PO; +CHOL1CAP95 PO; -GLC/500 PO; -HYDROCODONE/ACETAMOPHEN 5/325MG TAB PO PRN; +INSDGIPEN SC; +LIRA18IN SQ; +MYCO250C26 PO; +NITR-5 PO; +ONDA4TAB46 PO; -REPA1TAB10 PO; +TRAM-10 PO; -TRAMADOL HCL 50 MG TAB PO PRN; +TRAZ50TA35 PO
[2016-06-18 15:40] LABS: HEMATOCRIT 37.4 % (37-47); MEAN CELL VOLUME 86.8 fL (80-100); MEAN CORPUSCULAR HEMOGLOBIN 29.7 pg (25-34); MEAN CORPUSCULAR HGB CONC 34.2 g/dl (32-36); PLATELET COUNT 214 K/uL (130-400); RED BLOOD COUNT 4.31 M/uL (4.2-5.4); WHITE BLOOD COUNT 5.48 K/uL (4.8-10.8)
[2016-06-18 15:46] LABS: BLOOD UREA NITROGEN 22 mg/dl (7-18); C-REACTIVE PROTEIN < 0.29 mg/dl (0-0.29); CALCIUM 8.8 mg/dl (8.5-10.1); CARBON DIOXIDE 25 mmol/L (21-32); CHLORIDE 107 mmol/L (98-107); CREATININE 0.97 mg/dl (0.60-1.20); GLUCOSE 139 mg/dl (70-99); POTASSIUM 3.8 mmol/L (3.5-5.1); SODIUM 141 mmol/L (136-145)
[2016-06-18 15:49] LABS: ALKALINE PHOSPHATASE 76 U/L (45-117); ALT/SGPT 23 U/L (12-78); AST/SGOT 17 U/L (15-37)
--- NOTE | 2016-06-26 05:29 | CODING QUERY NO DIAGNOSIS ---
TREATMENT RENDERED WITHOUT A DIAGNOSIS To promote full compliance with coding requirements relating to patient care, physician participation is requested in all cases of interactive project manager uncertainty. Please assist us with providing a diagnosis/symptom for the test(s) below: A diagnosis/symptom was not documented on your Order. A valid diagnosis/symptom is required to bill all insurances. Please remember that we are unable to code a diagnosis of rule out, probable, possible, questionable, or suspected. Tests that require a diagnosis: DOS: 06/18/16 * CBC DIAGNOSIS: * ESR DIAGNOSIS: * CMP DIAGNOSIS: * CRP DIAGNOSIS: Provider Signature: Date: Thank you Jennifer Craft [facility] Information [facility] Once completed, please kindly fax back to [phone] For questions please call [phone]
== END | disposition home or self-care (01) ==
LOC: C.LABSPEC 14:38
PROVIDERS: ATTEND Internal Medicine Infectious Disease
DX: N39.0 Urinary tract infection, site not specified (principal)

== ENCOUNTER → 2016-07-22 | Outpatient (CLI) | payer OTHER, BC ==
[~2016-07-22] MED LIST changes: +ASPI81TA28 PO
[2016-07-22 13:17] LABS: BASO % 0.4 %; BASO ABS # 0.03 K/uL (0-0.2); COMPLETE YES; EOS % 0.4 %; HEMATOCRIT 39.1 % (37-47); LYMPH % 16.2 %; LYMPH ABS # 1.14 K/uL (1.2-3.4); MEAN CELL VOLUME 87.9 fL (80-100); MEAN CORPUSCULAR HEMOGLOBIN 29.7 pg (25-34); MEAN CORPUSCULAR HGB CONC 33.8 g/dl (32-36); MEAN PLATELET VOLUME 10.6 fL (7.4-10.4); MONO % 11.6 %; NEUT % 71.4 %; PLATELET COUNT 216 K/uL (130-400); RED BLOOD COUNT 4.45 M/uL (4.2-5.4); WHITE BLOOD COUNT 7.05 K/uL (4.8-10.8)
[2016-07-22 13:38] LABS: URINE APPEARANCE CLEAR (CLEAR); URINE BILIRUBIN NEG (NEG); URINE COLOR YELLOW; URINE EPITHELIAL CELL AUTO >30 /lpf (0-5); URINE NITRITE NEG (NEG); URINE PH 6.5 (4.5-7.5); UROBILINOGEN NEG (NEG); ZZUR CULT IF INDIC CLEAN CATCH YES
[2016-07-22 13:42] LABS: MANUAL MICROSCOPIC REQUIRED? NO; REVIEW REQ? NO
[2016-07-22 13:51] LABS: CALCIUM 9.4 mg/dl (8.5-10.1)
[2016-07-22 14:00] LABS: BLOOD UREA NITROGEN 16 mg/dl (7-18); BUN/CREATININE RATIO 17.2 (10-20); CARBON DIOXIDE 26 mmol/L (21-32); CHLORIDE 102 mmol/L (98-107); CREATININE 0.94 mg/dl (0.60-1.20); GLUCOSE 237 mg/dl (70-99); MAGNESIUM 1.8 mg/dl (1.8-2.4); PHOSPHORUS 2.7 mg/dl (2.5-4.9); POTASSIUM 3.4 mmol/L (3.5-5.1); SODIUM 139 mmol/L (136-145)
[2016-07-22 14:04] LABS: URINE PROTIEN/CREAT RATIO 0.5 (0-0.2); URINE TOTAL PROTEIN 75.7 mg/dl (0-11.9)
--- NOTE | 2016-07-29 08:35 | CODING QUERY MEDICAL NECESSITY ---
CQSUPPORTING DIAGNOSIS NEEDED A supporting diagnosis is required for the test/procedure performed on this patient in order for us to be reimbursed by the patient's insurance. Please provide a supporting diagnosis for the following test/procedure listed below next to the test name along with your signature. *If there is no additional diagnosis for this patient that would support the following test/procedure please document that below next to the test/procedure. Test(s)/Procedure(s) that require a supporting diagnosis: LONG 07/22/16 URINE CULTURE Provider Signature: Date: Thank you Stephanie Reyes [employer] Once completed, please kindly fax back to [phone] For questions please call [phone]
--- NOTE | 2016-08-30 07:37 | CODING QUERY MEDICAL NECESSITY ---
CQSUPPORTING DIAGNOSIS NEEDED A supporting diagnosis is required for the test/procedure performed on this patient in order for us to be reimbursed by the patient's insurance. Please provide a supporting diagnosis for the following test/procedure listed below next to the test name along with your signature. *If there is no additional diagnosis for this patient that would support the following test/procedure please document that below next to the test/procedure. Test(s)/Procedure(s) that require a supporting diagnosis: LONG 07/22/16 VITAMIN D TEST Provider Signature: Date: Thank you Stephanie Reyes Health Information Management Once completed, please kindly fax back to [phone] For questions please call [phone]
== END | disposition home or self-care (01) ==
LOC: C.LAB1850 12:10
PROVIDERS: ATTEND Internal Medicine Nephrology
DX: Z94.0 Kidney transplant status (principal); N39.0 Urinary tract infection, site not specified; E55.9 Vitamin D deficiency, unspecified

== ENCOUNTER → 2016-09-06 | Outpatient (CLI) | payer OTHER, BC ==
--- NOTE | 2016-09-06 12:13 | DIAGNOSTIC IMAGING REPORT ---
LUMBAR SPINE 5 VIEWS HISTORY: Pain M25.519 COMPARISON: None. FINDINGS: There is no fracture. Mild levoscoliosis. Mild compression deformity L1 considered old. Moderate degenerative disc change from L4 through S1. Note is made of bilateral nephrocalcinosis. IMPRESSION: 1. Moderate degenerative change. 2. Mild scoliosis. 3. Bilateral nephrocalcinosis. Electronically signed by: Clif Motley M.D. 09/06/2016 12:12 PM Dictated Date/Time: 09/06/2016 12:10 PM
--- NOTE | 2016-09-06 12:13 | DIAGNOSTIC IMAGING REPORT ---
RIGHT SHOULDER MIN 2 VIEWS ROUTINE CLINICAL HISTORY: Bilateral shoulder pain. COMPARISON: None FINDINGS: Alignment of the right shoulder is anatomic. There is no fracture or suspicious lesion. There is moderate joint space narrowing and osteophytosis of the right glenohumeral and acromioclavicular joints. IMPRESSION: 1. Moderate osteoarthritis of the right acromioclavicular and glenohumeral joints. 2. No acute fracture. Electronically signed by: Florian Ro M.D. 09/06/2016 12:12 PM Dictated Date/Time: 09/06/2016 12:10 PM
--- NOTE | 2016-09-06 12:14 | DIAGNOSTIC IMAGING REPORT ---
LEFT SHOULDER MIN 2 VIEWS ROUTINE CLINICAL HISTORY: Left shoulder pain COMPARISON: None DISCUSSION: There is an age-indeterminate fracture the left fourth posterior rib. There are moderately advanced degenerative changes of marked narrowing in the glenohumeral joint space. There are no acute proximal humeral fractures. There is no dislocation. IMPRESSION: 1. No acute fractures or dislocations of the left shoulder 2. Moderately advanced degenerative change involving the left shoulder 3. Age-indeterminate left fourth posterior rib fracture Electronically signed by: Kyler De La Rosa M.D. 09/06/2016 12:12 PM Dictated Date/Time: 09/06/2016 12:11 PM
== END | disposition home or self-care (01) ==
LOC: C.RAD 11:38
PROVIDERS: ATTEND Physician Assistant
DX: M54.40 Lumbago with sciatica, unspecified side (principal); M19.011 Primary osteoarthritis, right shoulder

== ENCOUNTER → 2016-09-20 | Outpatient (CLI) | payer OTHER, BC ==
[~2016-09-20] MED LIST changes: -ASPI81TA28 PO
[2016-09-20 12:02] LABS: BASO % 0.7 %; BASO ABS # 0.04 K/uL (0-0.2); COMPLETE YES; EOS % 0.9 %; IG% 0.2 %; LYMPH % 35.9 %; MEAN CELL VOLUME 88.4 fL (80-100); MEAN CORPUSCULAR HEMOGLOBIN 29.3 pg (25-34); MEAN CORPUSCULAR HGB CONC 33.1 g/dl (32-36); MEAN PLATELET VOLUME 10.5 fL (7.4-10.4); NEUT % 46.3 %; PLATELET COUNT 243 K/uL (130-400); RED BLOOD COUNT 4.41 M/uL (4.2-5.4); WHITE BLOOD COUNT 5.57 K/uL (4.8-10.8)
[2016-09-20 12:13] LABS: BLOOD UREA NITROGEN 20 mg/dl (7-18); BUN/CREATININE RATIO 20.3 (10-20); CALCIUM 9.2 mg/dl (8.5-10.1); CARBON DIOXIDE 25 mmol/L (21-32); CHLORIDE 109 mmol/L (98-107); GLUCOSE 128 mg/dl (70-99); MAGNESIUM 1.8 mg/dl (1.8-2.4); PHOSPHORUS 3.1 mg/dl (2.5-4.9); POTASSIUM 3.7 mmol/L (3.5-5.1); SODIUM 141 mmol/L (136-145)
== END | disposition home or self-care (01) ==
LOC: C.LAB1850 10:39
PROVIDERS: ATTEND Internal Medicine Nephrology
DX: I10 Essential (primary) hypertension (principal)

== ENCOUNTER 2016-12-03 15:56 | Emergency (ER) | payer BC, OTHER ==
[~2016-12-03] VITALS: Ht 165.1 cm; Wt 71.5 kg
[~2016-12-03 15:56] MED LIST changes: -CARV12.52 PO; -CEFD1CAP14 PO; -CHOL1CAP95 PO; -LIRA18IN SQ; -MYCO250C26 PO; -NITR-5 PO; -ONDA4TAB46 PO; -TRAM-10 PO; -TRAZ50TA35 PO
[2016-12-03 15:58] VITALS: Ht 165.1 cm; Wt 71.5 kg
[2016-12-03] MEDS ORDERED: SODIUM CHLORIDE 0.9% 1000ML 2,000 ML IV STA (17:21)
[2016-12-03 18:03] LABS: BASO % 0.5 %; BASO ABS # 0.04 K/uL (0-0.2); COMPLETE YES; EOS % 1.2 %; HEMATOCRIT 44.9 % (37-47); IG% 0.4 %; LYMPH % 23.3 %; LYMPH ABS # 1.76 K/uL (1.2-3.4); MEAN CELL VOLUME 86.3 fL (80-100); MEAN CORPUSCULAR HEMOGLOBIN 31.3 pg (25-34); MEAN CORPUSCULAR HGB CONC 36.3 g/dl (32-36); MEAN PLATELET VOLUME 9.8 fL (7.4-10.4); MONO % 15.9 %; NEUT % 58.7 %; PLATELET COUNT 213 K/uL (130-400); WHITE BLOOD COUNT 7.55 K/uL (4.8-10.8)
[2016-12-03 18:23] LABS: BUN/CREATININE RATIO 18.3 (10-20); CALCIUM 10.4 mg/dl (8.5-10.1); POTASSIUM 3.6 mmol/L (3.5-5.1)
[2016-12-03 18:28] LABS: URINE APPEARANCE CLEAR (CLEAR); URINE BILIRUBIN NEG (NEG); URINE COLOR DK YELLOW; URINE NITRITE NEG (NEG); URINE SPECIFIC GRAVITY 1.023 (1.000-1.030); UROBILINOGEN NEG (NEG); ZZUR CULT IF INDIC CLEAN CATCH NO
[2016-12-03 18:34] LABS: MANUAL MICROSCOPIC REQUIRED? NO; REVIEW REQ? NO
[2016-12-03] MEDS ORDERED: CEFTRIAXONE SOD INJ 1 GM ADDVIAL IV STA (19:01)
[2016-12-03] MEDS ORDERED: CHOL1CAP95 PO (19:10)
[2016-12-03] MEDS ORDERED: CARV12.52 PO (19:11)
[2016-12-03] MEDS ORDERED: TRAZ50TA35 PO (19:17)
[2016-12-03] MEDS ORDERED: MYCO250C26 PO (19:19)
[2016-12-03] MEDS ORDERED: TRAM-10 PO (19:21)
[2016-12-03] MEDS ORDERED: LIRA18IN SQ (19:26)
[2016-12-03] MEDS ORDERED: INSDGIPEN SC (19:27)
[2016-12-03] MEDS ORDERED: ONDA4TAB46 PO (19:29)
[2016-12-03] MEDS ORDERED: NITR-5 PO (19:31)
--- NOTE | 2016-12-03 19:50 | DIAGNOSTIC IMAGING REPORT ---
CT OF THE HEAD WITHOUT CONTRAST CLINICAL HISTORY: Weakness. COMPARISON STUDY: Head CT April 23, 2013. CT DOSE: 1252.34 mGy.cm TECHNIQUE: Helical axial images of the head were obtained without IV contrast. Automated exposure control was utilized for the study. A dose lowering technique was utilized adhering to the principles of ALARA. FINDINGS: No acute intracranial hemorrhage, midline shift or mass effect is present. Ventricular system is stable. Basilar cisterns are patent. There are no extra-axial collections. Seals-white differentiation is maintained. There is bilateral basal ganglia calcification. There are no findings to suggest acute dural sinus thrombosis or acute territorial infarct. There are no significant calvarial abnormalities. Visualized portions of the sinuses and mastoid air cells are clear. IMPRESSION: No acute intracranial findings. Electronically signed by: Florian Ro M.D. 12/03/2016 7:49 PM Dictated Date/Time: 12/03/2016 7:47 PM
--- NOTE | 2016-12-03 20:04 | DIAGNOSTIC IMAGING REPORT ---
CT OF THE ABDOMEN AND PELVIS WITHOUT CONTRAST CLINICAL HISTORY: Lower abdominal pain. COMPARISON STUDY: CT of the abdomen and pelvis September 01, 2015. TECHNIQUE: Axial images of the abdomen and pelvis were obtained without IV contrast. Images were reviewed in the axial, sagittal, and coronal planes. A dose lowering technique was utilized adhering to the principles of ALARA. FINDINGS: Moderate cardiomegaly is unchanged. Unenhanced images of liver, spleen, adrenal glands and pancreas are unremarkable. As before, both [place] kidneys are atrophic. A 4 mm nonobstructing proximal right ureteral calculus is unchanged from earlier studies. 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 There is no graft hydronephrosis. There are no perigraft fluid collections. There is no evidence for a bowel obstruction. The appendix is normal. There is moderate atherosclerotic plaque of the abdominal aorta. Water attenuation bilateral renal lesions are suboptimally assessed on this unenhanced exam but favor cysts. No suspicious osseous lesions are present. No pneumatosis, free air or portal venous gas is present. IMPRESSION: 1. No acute process within the abdomen or pelvis on unenhanced exam. 2. Unchanged appearance of the left lower quadrant renal allograft since prior CT of September 01, 2015. 3. No change in a 4 mm proximal right ureteral calculus since earlier studies. This is of doubtful significance. 4. No bowel obstruction. Normal appendix. Electronically signed by: Florian Ro M.D. 12/03/2016 8:02 PM Dictated Date/Time: 12/03/2016 7:52 PM
[2016-12-03] MEDS ORDERED: CEFD1CAP14 PO (20:38)
--- NOTE | 2016-12-03 21:17 | EMERGENCY ROOM VISIT NOTE ---
History Report prepared by Savi: Samantha Remy Under the Supervision of: Dr. Lamont Benito D.O. First contact with patient: 16:58 Chief Complaint: URINARY SYMPTOMS Stated Complaint: UTI Nursing Triage Summary: sick to stomach. taking antibiotics for uti. patient crying in triage states "I have nobody in this world to turn to. They screamed at me and said take me off your emergency contact list and hung up on me." History of Present Illness The patient is a 56 year old female who presents to the Emergency Room with complaints of persistent nausea starting 2 weeks ago. The patient went to [facility] 1 week ago for her nausea. She also had abdominal pain. She was diagnosed with a UTI. She was on Levaquin, but switched to Macrobid 2 days ago. She denies any dysuria. She is urinating more frequently. She notes that she has had blurry vision starting last night. She denies any vomiting, weakness, or numbness. Her last bowel movement was 2 days ago. She has a history of lupus and kidney transplant. She is on mycophenolate and cyclosporin. Source of History: patient Onset: 2 weeks ago Position: other (global) Quality: other (nausea) Timing: other (persistent) Associated Symptoms: + abdominal pain, + urinary symptoms, No vomiting, No weakness, No numbness Note: Pt reports blurry vision. Review of Systems See HPI for pertinent positives & negatives. A total of 10 systems reviewed and were otherwise negative. Past Medical & Surgical Medical Problems: (1) Anxiety (2) Attention deficit hyperactivity disorder (3) Benign hypertension (4) Borderline personality disorder (5) Cerebrovascular disease (6) Coronary artery disease (7) Diabetes mellitus type 2 (8) Gastroesophageal reflux disease (9) Hyperparathyroidism (10) Kidney transplant status, cadaveric (11) Major depression, recurrent (12) MDRO (multiple drug resistant organisms) resistance (13) Osteoporosis (14) Schizoaffective disorder (15) Sleep apnea (16) Systemic lupus erythematosus (17) Urinary tract infection due to extended-spectrum beta lactamase (ESBL) producing Escherichia coli Surgical Problems: (1) Status post coronary artery stent placement (2) Status post kidney transplant (3) Status post parathyroidectomy Family History FH: dementia MOTHER FH: diabetes mellitus SISTER GRANDMOTHER FH: heart disease FATHER MOTHER FH: lung cancer FATHER FH: rheumatoid arthritis SISTER FHx: heart disease Social History Smoking Status: Never Smoker Alcohol Use: none Drug Use: none Marital Status: single Housing Status: lives alone Occupation Status: disabled Current/Historical Medications Scheduled Amlodipine (Norvasc), 2.5 MG PO QAM Carvedilol (Coreg), 12.5 MG PO BID Cefdinir (Omnicef), 300 MG PO Q12H Cholecalciferol (Vitamin D3), 50,000 UNITS PO WK Cyclosporine (Neoral), 50 MG PO BID Dexlansoprazole (Dexilant), 30 MG PO QAM Famotidine (Pepcid), 20 MG PO BID Fluticasone Propionate (Fluticasone Propionate), 2 SPRAYS CECILE QAM Insulin Glargine (Lantus Solostar), 10 UNITS SC AMPM Isosorbide Mononitrate Ext Rel (Imdur Ext Rel), 30 MG PO QAM Liraglutide (Victoza), 18 MG SQ DAILY Lutein-Zeaxanthin (Lutein), 1 TAB PO QAM Multivitamins/Minerals (Mvi With Minerals), 1 TAB PO DAILY Mycophenolate Mofetil (Cellcept), 250 MG PO BID Nitrofurantoin Monohyd Macrocr (Macrobid), 100 MG PO BID Ocuvite Preservision (Ocuvite Preservision), 1 TABLET PO BID Trazodone Hcl (Trazodone), 50 MG PO HS Scheduled PRN Acetaminophen (Tylenol), 2 TAB PO Q6H PRN for Pain Nitroglycerin (Nitrostat), 0.4 MG UT UD PRN for Chest Pain Ondansetron Hcl (Zofran), 4 MG PO Q8 PRN for Nausea Tramadol (Ultram), 50 MG PO Q8H PRN for Pain Allergies Coded Allergies: Penicillins (Unverified Allergy, Mild, ITCHY, ANXIETY, 06/14/16) Loperamide (Verified Allergy, Unknown, 06/14/16) Vancomycin (Verified Allergy, Unknown, 06/14/16) Ziprasidone (Verified Allergy, Unknown, itching, 06/14/16) Physical Exam Vital Signs Date Time Temp Pulse Resp B/P (MAP) Pulse Ox O2 Delivery O2 Flow Rate FiO2 12/03/16 21:09 70 18 187/92 97 Room Air 12/03/16 19:16 78 18 155/81 94 12/03/16 17:54 74 18 154/94 95 Room Air 12/03/16 15:58 36.8 109 18 162/96 95 Room Air Physical Exam GENERAL: sitting up in bed, anxious, disheveled, chronically ill appearing EYE EXAM: normal conjunctiva OROPHARYNX: no exudate, no erythema, lips, buccal mucosa, and tongue normal and mucous membranes are moist NECK: supple, no nuchal rigidity, no adenopathy, non-tender LUNGS: Clear to auscultation. Normal chest wall mechanics HEART: tachycardic, no murmurs, S1 normal and S2 normal ABDOMEN: abdomen soft, non-tender, normo-active bowel sounds, no masses, no rebound or guarding. BACK: Back is symmetrical on inspection and there is no deformity, no midline tenderness, no CVA tenderness, old right lower thoracic incision. SKIN: no rashes and no bruising UPPER EXTREMITIES: upper extremities are grossly normal. LOWER EXTREMITIES: No pitting edema. NEURO EXAM: Normal sensorium, cranial nerves II-XII intact, normal speech, no weakness of arms, no weakness of legs. No drift. Finger to nose intact. Gross sensation intact. PSYCH: Denies SI/HI Medical Decision & Procedures ER Provider Diagnostic Interpretation: Radiology results as stated below per my review and the radiologist's interpretation: CT OF THE HEAD WITHOUT CONTRAST CLINICAL HISTORY: Weakness. COMPARISON STUDY: Head CT April 23, 2013. CT DOSE: 1252.34 mGy.cm TECHNIQUE: Helical axial images of the head were obtained without IV contrast. Automated exposure control was utilized for the study. A dose lowering technique was utilized adhering to the principles of ALARA. FINDINGS: No acute intracranial hemorrhage, midline shift or mass effect is present. Ventricular system is stable. Basilar cisterns are patent. There are no extra-axial collections. Seals-white differentiation is maintained. There is bilateral basal ganglia calcification. There are no findings to suggest acute dural sinus thrombosis or acute territorial infarct. There are no significant calvarial abnormalities. Visualized portions of the sinuses and mastoid air cells are clear. IMPRESSION: No acute intracranial findings. Electronically signed by: Florian Ro M.D. 12/03/2016 7:49 PM Dictated Date/Time: 12/03/2016 7:[address] OF THE ABDOMEN AND PELVIS WITHOUT CONTRAST CLINICAL HISTORY: Lower abdominal pain. COMPARISON STUDY: CT of the abdomen and pelvis September 01, 2015. TECHNIQUE: Axial images of the abdomen and pelvis were obtained without IV contrast. Images were reviewed in the axial, sagittal, and coronal planes. A dose lowering technique was utilized adhering to the principles of ALARA. FINDINGS: Moderate cardiomegaly is unchanged. Unenhanced images of liver, spleen, adrenal glands and pancreas are unremarkable. As before, both [place] kidneys are atrophic. A 4 mm nonobstructing proximal right ureteral calculus is unchanged from earlier studies. 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 There is no graft hydronephrosis. There are no perigraft fluid collections. There is no evidence for a bowel obstruction. The appendix is normal. There is moderate atherosclerotic plaque of the abdominal aorta. Water attenuation bilateral renal lesions are suboptimally assessed on this unenhanced exam but favor cysts. No suspicious osseous lesions are present. No pneumatosis, free air or portal venous gas is present. IMPRESSION: 1. No acute process within the abdomen or pelvis on unenhanced exam. 2. Unchanged appearance of the left lower quadrant renal allograft since prior CT of September 01, 2015. 3. No change in a 4 mm proximal right ureteral calculus since earlier studies. This is of doubtful significance. 4. No bowel obstruction. Normal appendix. Electronically signed by: Florian Ro M.D. 12/03/2016 8:02 PM Dictated Date/Time: 12/03/2016 7:52 PM Laboratory Results 12/03/16 17:51 Red Blood Count 5.20, Mean Corpuscular Volume 86.3, Mean Corpuscular Hemoglobin 31.3, Mean Corpuscular Hemoglobin Concent 36.3, Mean Platelet Volume 9.8, Neutrophils (%) (Auto) 58.7, Lymphocytes (%) (Auto) 23.3, Monocytes (%) (Auto) 15.9, Eosinophils (%) (Auto) 1.2, Basophils (%) (Auto) 0.5, Neutrophils # (Auto ) 4.43, Lymphocytes # (Auto) 1.76, Monocytes # (Auto) 1.20, Eosinophils # (Auto ) 0.09, Basophils # (Auto) 0.04 12/03/16 17:51 Test 12/03/16 17:51 12/03/16 18:00 White Blood Count 7.55 K/uL (4.8-10.8) Red Blood Count 5.20 M/uL (4.2-5.4) Hemoglobin 16.3 g/dL (12.0-16.0) Hematocrit 44.9 % (37-47) Mean Corpuscular Volume 86.3 fL (80-100) Mean Corpuscular Hemoglobin 31.3 pg (25-34) Mean Corpuscular Hemoglobin Concent 36.3 g/dl (32-36) Platelet Count 213 K/uL (130-400) Mean Platelet Volume 9.8 fL (7.4-10.4) Neutrophils (%) (Auto) 58.7 % Lymphocytes (%) (Auto) 23.3 % Monocytes (%) (Auto) 15.9 % Eosinophils (%) (Auto) 1.2 % Basophils (%) (Auto) 0.5 % Neutrophils # (Auto) 4.43 K/uL (1.4-6.5) Lymphocytes # (Auto) 1.76 K/uL (1.2-3.4) Monocytes # (Auto) 1.20 K/uL (0.11-0.59) Eosinophils # (Auto) 0.09 K/uL (0-0.5) Basophils # (Auto) 0.04 K/uL (0-0.2) RDW Standard Deviation 43.1 fL (36.4-46.3) RDW Coefficient of Variation 13.7 % (11.5-14.5) Immature Granulocyte % (Auto) 0.4 % Immature Granulocyte # (Auto) 0.03 K/uL (0.00-0.02) Anion Gap 6.0 mmol/L (3-11) Est Creatinine Clear Calc Drug Dose 61.5 ml/min Estimated GFR () 72.4 Estimated GFR (Non- 62.5 BUN/Creatinine Ratio 18.3 (10-20) Calcium Level 10.4 mg/dl (8.5-10.1) Total Bilirubin 0.7 mg/dl (0.2-1) Direct Bilirubin 0.2 mg/dl (0-0.2) Aspartate Amino Transf (AST/SGOT) 10 U/L (15-37) Alanine Aminotransferase (ALT/SGPT) 20 U/L (12-78) Alkaline Phosphatase 121 U/L (45-117) Total Protein 7.9 gm/dl (6.4-8.2) Albumin 3.8 gm/dl (3.4-5.0) Lipase 237 U/L (73-393) Urine Color DK YELLOW Urine Appearance CLEAR (CLEAR) Urine pH 7.0 (4.5-7.5) Urine Specific [place] 1.023 (1.000-1.030) Urine Protein 1+ (NEG) Urine Glucose (UA) NEG (NEG) Urine Ketones TRACE (NEG) Urine Occult Blood NEG (NEG) Urine Nitrite NEG (NEG) Urine Bilirubin NEG (NEG) Urine Urobilinogen NEG (NEG) Urine Leukocyte Esterase TRACE (NEG) Urine WBC (Auto) 1-5 /hpf (0-5) Urine RBC (Auto) 0-4 /hpf (0-4) Urine Hyaline Casts (Auto) 1-5 /lpf (0-5) Urine Epithelial Cells (Auto) 10-20 /lpf (0-5) Urine Bacteria (Auto) NEG (NEG) Urine Test NEG (NEG) Laboratory results per my review. Medications Administered Medications (Trade) Dose Ordered Sig/[place] Route Start Time Stop Time Status Last Admin Dose Admin Sodium Chloride 2,000 ml @ 999 mls/hr Q2H1M STAT IV 12/03/16 17:21 12/03/16 19:21 DC 12/03/16 17:53 999 MLS/HR Ceftriaxone Sodium (Rocephin Inj) 1 gm NOW STAT IV 12/03/16 19:01 12/03/16 19:02 DC 12/03/16 19:01 1 GM ED Course ED COURSE: Vital signs were reviewed and showed tachycardia, hypertension. The patients medical record was reviewed The above diagnostic studies were performed and reviewed. ED treatments and interventions as stated above. 1711: The patient was evaluated in room A9B. A complete history and physical examination was performed. 1721: NSS 2000 ml @ 999 mls/hr IV. 1806: I reevaluated the patient. I updated her on the results. 1857: I discussed the patient's case with [facility]. They informed me of the urine culture results. 1900: Rocephin 1 gm IV. 1901: I reevaluated the patient. I updated her on the results. 2025: I discussed the patient's case with Dr. Rico, [facility]. He states that the stone should not be an issue. 2100: D/w Pavithra 's who recommends f/u as an outpatient and agrees with treatment plan 2044: Upon reevaluation, the patient is resting comfortably.I discussed my findings with the patient and she understands and agrees with the treatment plan. Based on the patients age, coexisting illnesses, exam and lab findings the decision to treat as an outpatient was made. The patient remained stable while under my care. The patient appeared well at the time of discharge. Medical Decision Differential diagnoses includes but is not limited to gastritis, peptic ulcer disease, GERD, gallbladder disease, pancreatitis, small bowel obstruction, acute coronary syndrome, pericarditis, ischemic bowel, irritable bowel disease, irritable bowel syndrome, appendicitis, diverticulitis, malignancy, hernia, urinary tract infection, torsion, perforation, trauma, infectious. Patient is a 56-year-old female that presents to ER following being treated for UTI at [facility] express her symptoms not improving. She is very anxious initially upon arrival. She has a renal transplant performed in 1998. She is on cyclosporine and Prograf. No fevers. Labs including CBC, BMP LFTs, bilirubin and lipase is unremarkable. Creatinine is 1.0. CT of abdomen and pelvis is unchanged since 2016. It does show persistent right stone in the right proximal ureter with an atrophic kidney. She has previously been admitted for multidrug resistant UTIs over the past year with a stone in place. I discussed the stone with urology and they recommended following up as an outpatient as this is likely not causing any issues. I also discussed her findings with her transplant team who recommended following up as an outpatient. Will not change any of her immune modulators as she is not septic. Patient on multiple occasions was requesting to be admitted. I did not feel this was indicated at this time. She also did complain of mild blurry vision. Her visual acuity is 20/25 both eyes. She was completely neurologically intact. CT head was negative. UA was fairly unremarkable. Just prior to discharge the patient requested to see care management. She was discharged on Omnicef as third- generation cephalosporins and Bactrim for the only two reasonable antibiotics as an outpatient. Transplant agreed with both Omnicef or Bactrim. Reevaluation patient states that she does not have a ride home. Discussed care management and charge nurse and will provide taxi voucher. Patient was yelling at nursing staff that she was very agitated. She also yielded manager respiratory care who was trying to obtain information to referred to area aging. Stressed to the patient should not drive until her vision clears up although it does appear to have cleared based on her visual acuity. She did deny any SI/HI. Discussed with Pt concerning signs and symptoms to watch out for. Pt was instructed to follow up with their PCP and discussed with the patient their option to return to the ED at anytime for persistent or worsening symptoms. The appropriate anticipatory guidance and out-patient management, including indications for return to the emergency department, were explained at length to the patient and understood. Medication Reconcilliation Current Medication List: was personally reviewed by me Blood Pressure Screening Patient's blood pressure: Elevated blood pressure Blood pressure disposition: Elevated BP felt to be situational Consults Time Called: 2019 Consulting Physician: Dr. Rico, [facility] Returned Call: 2025 I discussed the patient's case with him. He states that the stone should not be an issue. Additional Consults: Time Called: 9pm Consulted Physician: Dr. Arshad Additional Comments: Transplant surgeon who agrees with outpatient treatment on either Bactrim or Omnicef. Impression Primary Impression: Urinary tract infection Additional Impression: Lower abdominal pain Scribe Attestation The scribe's documentation has been prepared under my direction and personally reviewed by me in its entirety. I confirm that the note above accurately reflects all work, treatment, procedures, and medical decision making performed by me. Departure Information Dispostion Home / Self-Care Prescriptions Cefdinir (Omnicef) 300 Mg Cap 300 MG PO Q12H for 10 Days, #20 CAP Prov: Lamont Benito, DO 12/03/16 Referrals No Doctor, Assigned (PCP) Forms HOME CARE DOCUMENTATION FORM, IMPORTANT VISIT INFORMATION Patient Instructions ED UTI Cystitis Female, My [facility] Additional Instructions Please follow up with your primary care doctor with in the next 24 hours. Any worsening of your symptoms, please return to the ED immediately. This includes any fevers greater than 100.4, worsening pain, chest pain, shortness breath, persistent nausea, vomiting, unable to eat or drink, or any other concerning signs or symptoms from your standpoint. Please take antibiotics as prescribed. Problem Qualifiers Primary Impression: Urinary tract infection Urinary tract infection type: acute cystitis Hematuria presence: without hematuria Qualified Codes: N30.00 - Acute cystitis without hematuria
[2016-12-03 22:23] VITALS: BP 187/92; PULSE 70; TEMP 36.8; O2SAT 97
[2016-12-06 08:06] LABS: FK506 TACROLIMUS HIGHLY SENS NEGATIVE <1 MCG/L (5-20)
--- NOTE | 2016-12-06 11:36 | Pharmacy Progress Note ---
ED Pharmacist Progress Note Date of Service: Dec 06, 2016. Tacrolimus level was undetectably low. It was unclear whether the patient was actually taking tacrolimus. I called [facility] and confirmed with Mikala that the patient is on cellcept and cyclosporine and does not currently take tacrolimus.
== END 2016-12-03 22:15 | disposition home or self-care (01) ==
LOC: C.EDB 15:57 → C.EDA 22:15
DX: N30.00 Acute cystitis without hematuria (principal); R10.30 Lower abdominal pain, unspecified; M32.9 Systemic lupus erythematosus, unspecified; I10 Essential (primary) hypertension; I25.10 Atherosclerotic heart disease of native coronary artery without angina pectoris; E11.9 Type 2 diabetes mellitus without complications; K21.9 Gastro-esophageal reflux disease without esophagitis; M81.0 Age-related osteoporosis without current pathological fracture; E89.2 Postprocedural hypoparathyroidism; F33.9 Major depressive disorder, recurrent, unspecified; Z94.0 Kidney transplant status; Z98.61 Coronary angioplasty status; Z83.3 Family history of diabetes mellitus; Z82.69 Family history of other diseases of the musculoskeletal system and connective tissue; Z80.1 Family history of malignant neoplasm of trachea, bronchus and lung; Z81.8 Family history of other mental and behavioral disorders; Z79.4 Long term (current) use of insulin; Z79.899 Other long term (current) drug therapy

== ENCOUNTER → 2017-01-15 | Outpatient (CLI) | payer OTHER ==
[~2017-01-15] MED LIST changes: -AMR2 PO; -ASPCH81X PO; -CALC0.2510 PO; -CANA1TAB PO; +CARV12.52 PO; -CHOL100010 PO; +CHOL1CAP95 PO; -DENO60SO PO; -DTRSR4 PO; +LIRA18IN SQ; -MELA1CAP9 PO; +MYCO250C26 PO; -MYCO250C7 PO; +NITR-5 PO; -NRN/300 PO; -OMEG10007 PO; +ONDA4TAB46 PO; -PRVC/20 PO; -SITA50TA PO; -TPRSR/25 PO; +TRAM-10 PO; +TRAZ50TA35 PO
--- NOTE | 2017-01-15 20:10 | ECHOCARDIOGRAM REPORT ---
*NOTICE TO RECEIVING REPUBLICAN AGENCY This information is strictly Confidential and protected under [place] law. [place] law prohibits you from making any further disclosure of this information unless further disclosure is expressly permitted by the written consent of the person to whom it pertains or is authorized by law. A general authorization for the release of medical or other information is not sufficient for this purpose. Hospital accepts no responsibility if the information is made available to any other person, INCLUDING THE PATIENT. Interpretation Summary * Name: DAY IVERSON Study Date: 01/15/2017 01:46 PM BP: 146/70 mmHg * Patient Location: [facility] HR: 85 * : 1960 (M/d/yyyy) Gender: Female Height: 64 in * Age: 56 yrs Ethnicity: CA Weight: 160 lb * Ordering Physician: RAYNE MOSS MD * Performed By: Rachele Iverson RCS * * Reason For Study: CHEST PAIN * BSA: 1.8 m2 * Moderate left ventricular systolic dysfunction. * Inferior akinesis and posterior hypokinesis to akinesis of the left ventricle. * Moderate left ventricular hypertrophy except for relative thinning of the inferior and posterior cha. * Moderate mitral regurgitation. * Mild to moderate aortic stenosis. * Trace tricuspid regurgitation. * Compared to an echocardiogram of August 19, 2011 the calculated aortic valve area has decreased. The left ventricular ejection fraction has decreased. The inferior and posterior wall motion abnormalities of left ventricle are unchanged. The hypokinesis seen in the other LV segments was not seen in 2012. * The study was technically difficult. Procedure Details * A complete two-dimensional transthoracic echocardiogram was performed (2D, M-mode, Doppler and color flow Doppler). Left Ventricle * The left ventricle is normal in size. * Moderate left ventricular hypertrophy except for relative thinning of the inferior and posterior cha. * Left ventricular systolic function is moderately reduced. * Ejection Fraction = 30-35%. * There is inferior wall akinesis. * Posterior wall hypokinesis to akinesis. The other LV segments are hypokinetic. Right Ventricle * The right ventricle is normal in size and function. Atria * The left atrial size is normal. * Right atrial size is normal. * No ASD detected; PFO is not assessed. Mitral Valve * The mitral valve leaflets appear thickened, but open well. * There is no evidence of mitral valve prolapse. * There is no mitral valve stenosis. * There is moderate mitral regurgitation. Tricuspid Valve * The tricuspid valve is normal. * There is no tricuspid stenosis. * There is trace tricuspid regurgitation. * Right ventricular systolic pressure is normal. Aortic Valve * The aortic valve is trileaflet. * The aortic valve is not well visualized. * Mild to moderate valvular aortic stenosis. * Aortic valve area was calculated at 1.2 cm\S\2 using the continuity equation. * Dimensionless aortic valve index 0.39. * No aortic regurgitation is present. Pulmonic Valve * The pulmonic valve is not well visualized. * The pulmonary valve is inadequately visualized, but the Doppler data is adequate for interpretation. * There is no pulmonic valvular stenosis. * There is no significant pulmonary regurgitation. Great Vessels * The aortic root is normal size. MMode 2D Measurements and Calculations IVSd 1.7 cm IVSs 1.5 cm LVIDd 4.5 cm LVIDs 4.3 cm LVPWd 1.1 cm LVPWs 1.3 cm IVS/LVPW 1.6 FS 4.0 % EDV(Teich) 92.9 ml ESV(Teich) 84.4 ml EF(Teich) 9.1 % EDV(cubed) 91.7 ml ESV(cubed) 81.1 ml EF(cubed) 11.5 % % IVS thick -12.04 % % LVPW thick 19.6 % LV mass(C)d 238.5 grams LV mass(C)dI 134.0 grams/m\S\2 LV mass(C)s 225.0 grams LV mass(C)sI 126.5 grams/m\S\2 SV(Teich) 8.5 ml SI(Teich) 4.8 ml/m\S\2 SV(cubed) 10.5 ml SI(cubed) 5.9 ml/m\S\2 Ao root diam 2.8 cm Ao root area 6.2 cm\S\2 ACS 2.0 cm LA dimension 2.9 cm LA/Ao 1.0 LVOT diam 2.0 cm LVOT area 3.0 cm\S\2 EDV(sp4-el) 148.0 ml ESV(sp4-el) 101.0 ml EF(sp4-el) 31.8 % EDV(sp2-el) 150.0 ml ESV(sp2-el) 106.0 ml EF(sp2-el) 29.3 % SV(sp4-el) 47.0 ml SI(sp4-el) 26.4 ml/m\S\2 SV(sp2-el) 44.0 ml SI(sp2-el) 24.7 ml/m\S\2 Doppler Measurements and Calculations Ao V2 max 165.7 cm/sec Ao max PG 11.0 mmHg Ao max PG (full) 9.3 mmHg JESUS(V,A) 1.2 cm\S\2 JESUS(V,D) 1.2 cm\S\2 LV V1 max PG 1.7 mmHg LV V1 max 64.7 cm/sec MR max viry 593.7 cm/sec MR max PG 141.0 mmHg PA V2 max 74.2 cm/sec PA max PG 2.2 mmHg TR max viry 189.8 cm/sec
== END | disposition home or self-care (01) ==
LOC: C.CPL 13:26
PROVIDERS: ATTEND Internal Medicine
DX: R07.89 Other chest pain (principal)

== ENCOUNTER → 2017-01-31 | Outpatient (CLI) | payer OTHER ==
[~2017-01-31] MED LIST changes: +REGADENOSON 0.4 MG/5 ML SYR ONE
--- NOTE | 2017-01-31 16:22 | Myocardial Perfusion Study ---
Myocardial Perfusion Study Rpt Myocardial Perfusion Study Rpt Date of Service 01/31/2017 Myocardial Perfusion Study Rpt Procedure: 1. Myocardial perfusion study performed in multiple views/images 2. Lexiscan pharmacologic stress ECG Indications: 1. Chest pain Consent: Informed written consent was obtained prior to the procedure. Ordering physician: Dr. Nirav Castro Procedural details: For the stress portion of the study, Lexiscan 0.4 mg was intravenously administered followed by a saline flush. This was followed by 33 mCi of technetium 99m Cardiolite, injected at 11:08 a.m. on 01/31/2017. 30 minutes following the injection, imaging of the heart was performed in multiple projections. For the rest portion of the study, 10.8 mCi technetium 99m Cardiolite was injected intravenously at 9:25 a.m. on 01/31/2017. 1 hour following the injection, imaging of the heart was performed in the same projections. Lexiscan stress ECG: Resting ECG demonstrated: Sinus bradycardia at 58 bpm. IVCD. Maximum heart rate: 91 bpm Resting blood pressure: 158/79 mmHg Maximum blood pressure: 170/82 mmHg Maximal, age-predicted heart rate: 55 % Significant ST changes: 0.[address] depression in leads II, aVF, V6. Arrhythmia: None Symptoms: Dizziness Findings: Rotating raw imaging demonstrated no significant lung uptake. There is no significant motion artifact. Heart size appeared enlarged. Myocardial perfusion demonstrated a large area of severely reduced uptake involving the base to apical inferolateral, base to apical inferior, and base to apical inferoseptal cha, which were fixed in post stress and rest imaging, suggesting infarct. There were no significant reversible changes to suggest ischemia. Ejection fraction: 28% Wall motion: Akinesis of the base to apical inferolateral, base to apical inferior, and base to apical inferoseptal wall segments. Otherwise, global hypokinesis. No significant transient ischemic dilation. Impression: 1. Abnormal myocardial perfusion suggesting large RCA (+/- circumflex) infarct. 2. No significant ischemic changes suggested. 3. Severely reduced left ventricular systolic function. EF 28%. 4. Akinesis of the base to apical inferolateral, base to apical inferior, and base to apical inferoseptal wall segments. Otherwise global hypokinesis. 5. No arrhythmia. 6. No chest pain reported. 7. Indeterminate/nondiagnostic Lexiscan ECG.
== END | disposition home or self-care (01) ==
LOC: C.NUCL 08:46
PROVIDERS: ATTEND Internal Medicine
DX: R07.89 Other chest pain (principal)

== ENCOUNTER 2017-02-27 13:58 | Emergency (ER) | payer OTHER ==
[~2017-02-27] VITALS: Ht 162.6 cm; Wt 77.3 kg
[~2017-02-27 13:58] MED LIST changes: -REGADENOSON 0.4 MG/5 ML SYR ONE
[2017-02-27 14:06] VITALS: Ht 162.6 cm; Wt 77.3 kg
[2017-02-27] MEDS ORDERED: SODIUM CHLORIDE 0.9% 1000ML 1,000 ML IV STA (14:37)
--- NOTE | 2017-02-27 14:37 | EMERGENCY ROOM VISIT NOTE ---
History First contact with patient: 14:28 Chief Complaint: DEHYDRATION Stated Complaint: DEHYDRATION, CREATINE LEVEL IS ELEVATED Nursing Triage Summary: elevated creatinine level. no trouble urinating. denies abdominal pain was told to come get fluids and give a urine sample History of Present Illness The patient is a 56 year old female who presents to the Emergency Room with complaints of fatigue and elevated creatinine. She has been feeling unwell generally and exhausted for the past 3 weeks with decreased appetite. She was seen by her new rivet catcher Dr Washington in [place]. She reports after that appointment she felt light headed and dizzy and so was told by her doctor for bed rest. Lab work was taken on 21 February. Cr was 3.58 (previously 1.0 in November) and BUN 65. She was also told to bring in multiple stool samples, results from 02/24 (culture and c. diff negative) and 02/25 (c. diff negative), results pending. She was called by the nurse in Dr Washington's office who advised her to go to the ER for IV fluids and urine sample. During the last three weeks she notes having loose stool, diarrhea, going 2-3 times/day, which has actually resolved over the past 48 hours. She also notes nasal congestion for the last 3 weeks but denies any cough or ear pain. She does note she feels short of breath on exertion. Review of Systems She denies any urinary symptoms - frequency, dysuria, color, smell, suprapubic pain She denies any respiratory symptoms - nasal congestion, cough, fevers, chills, chest pain All other systems reviewed and otherwise negative. Past Medical/Surgical History Medical Problems: (1) Anxiety (2) Attention deficit hyperactivity disorder (3) Benign hypertension (4) Borderline personality disorder (5) Cerebrovascular disease (6) Coronary artery disease (7) Diabetes mellitus type 2 (8) Gastroesophageal reflux disease (9) Hyperparathyroidism (10) Kidney transplant status, cadaveric (11) Major depression, recurrent (12) MDRO (multiple drug resistant organisms) resistance (13) Osteoporosis (14) Schizoaffective disorder (15) Sleep apnea (16) Systemic lupus erythematosus (17) Urinary tract infection due to extended-spectrum beta lactamase (ESBL) producing Escherichia coli Surgical Problems: (1) Status post coronary artery stent placement (2) Status post kidney transplant (3) Status post parathyroidectomy Family History FH: dementia MOTHER FH: diabetes mellitus SISTER GRANDMOTHER FH: heart disease FATHER MOTHER FH: lung cancer FATHER FH: rheumatoid arthritis SISTER FHx: heart disease Social History Smoking Status: Never Smoker Alcohol Use: none Drug Use: none Marital Status: single Housing Status: lives alone Occupation Status: disabled Current/Historical Medications Scheduled Amlodipine (Norvasc), 2.5 MG PO QAM Aspirin (Aspirin Ec), 81 MG PO DAILY Carvedilol (Coreg), 12.5 MG PO BID Cholecalciferol (Vitamin D3), 50,000 UNITS PO WK Cyclosporine (Neoral), 50 MG PO BID Dexlansoprazole (Dexilant), 30 MG PO QAM Famotidine (Pepcid), 20 MG PO BID Fluticasone Propionate (Fluticasone Propionate), 2 SPRAYS CECILE QAM Insulin Glargine (Lantus Solostar), 10 UNITS SC AMPM Isosorbide Mononitrate Ext Rel (Imdur Ext Rel), 30 MG PO QAM Liraglutide (Victoza), 18 MG SQ DAILY Lutein-Zeaxanthin (Lutein), 1 TAB PO QAM Mycophenolate Mofetil (Cellcept), 250 MG PO BID Ocuvite Preservision (Ocuvite Preservision), 1 TABLET PO BID Scheduled PRN Nitroglycerin (Nitrostat), 0.4 MG UT UD PRN for Chest Pain Ondansetron Hcl (Zofran), 4 MG PO Q8 PRN for Nausea Tramadol (Ultram), 50 MG PO Q8H PRN for Pain Physical Exam Vital Signs Date Time Temp Pulse Resp B/P (MAP) Pulse Ox O2 Delivery O2 Flow Rate FiO2 02/27/17 16:25 70 16 137/72 98 02/27/17 14:40 36.7 73 18 140/96 99 Room Air 02/27/17 14:38 36.7 73 18 140/36 99 Room Air 02/27/17 14:28 73 02/27/17 14:06 36.7 78 18 142/87 97 Room Air Physical Exam General Appearance: WD/WN, no apparent distress Head: normocephalic, atraumatic Eyes: normal inspection, PERRL, EOMI Neck: supple, no JVD Respiratory/Chest: chest non-tender, lungs clear, normal breath sounds, no respiratory distress, no accessory muscle use Cardiovascular: regular rate, rhythm, no edema, no murmur, normal peripheral pulses Abdomen / GI: normal bowel sounds, non tender, soft Back: + right CVA tenderness (patient reports chronic back pain and also having pain on palpation of her muscles over the same area and paraspinal from mid thoracic down to L5) Extremities: no calf tenderness, normal capillary refill, no pedal edema Neurologic/Psych: chairman & co founder II-XII nml as tested, no motor/sensory deficits, alert , oriented x 3 Medical Decision & Procedures ER Provider Diagnostic Interpretation: CHEST ONE VIEW PORTABLE CLINICAL HISTORY: fatigue, shortness of breath dyspnea COMPARISON STUDY: 2015 FINDINGS: The bones soft tissues and hemidiaphragms are normal. The cardiomediastinal silhouette is normal. The lungs are clear. The pulmonary vasculature is normal. IMPRESSION: Negative chest. The above report was generated using voice recognition software. It may contain grammatical, syntax or spelling errors. Electronically signed by: Clif Motley M.D. 02/27/2017 2:55 PM Dictated Date/Time: 02/27/2017 2:55 PM Laboratory Results 02/27/17 14:25 Red Blood Count 4.01, Mean Corpuscular Volume 88.8, Mean Corpuscular Hemoglobin 30.2, Mean Corpuscular Hemoglobin Concent 34.0, Mean Platelet Volume 9.2, Neutrophils (%) (Auto) 64.2, Lymphocytes (%) (Auto) 20.9, Monocytes (%) (Auto) 11.5, Eosinophils (%) (Auto) 2.0, Basophils (%) (Auto) 0.9, Neutrophils # (Auto ) 4.23, Lymphocytes # (Auto) 1.38, Monocytes # (Auto) 0.76, Eosinophils # (Auto ) 0.13, Basophils # (Auto) 0.06 02/27/17 14:25 Test 02/27/17 14:25 02/27/17 16:00 White Blood Count 6.59 K/uL (4.8-10.8) Red Blood Count 4.01 M/uL (4.2-5.4) Hemoglobin 12.1 g/dL (12.0-16.0) Hematocrit 35.6 % (37-47) Mean Corpuscular Volume 88.8 fL (80-100) Mean Corpuscular Hemoglobin 30.2 pg (25-34) Mean Corpuscular Hemoglobin Concent 34.0 g/dl (32-36) Platelet Count 335 K/uL (130-400) Mean Platelet Volume 9.2 fL (7.4-10.4) Neutrophils (%) (Auto) 64.2 % Lymphocytes (%) (Auto) 20.9 % Monocytes (%) (Auto) 11.5 % Eosinophils (%) (Auto) 2.0 % Basophils (%) (Auto) 0.9 % Neutrophils # (Auto) 4.23 K/uL (1.4-6.5) Lymphocytes # (Auto) 1.38 K/uL (1.2-3.4) Monocytes # (Auto) 0.76 K/uL (0.11-0.59) Eosinophils # (Auto) 0.13 K/uL (0-0.5) Basophils # (Auto) 0.06 K/uL (0-0.2) RDW Standard Deviation 42.0 fL (36.4-46.3) RDW Coefficient of Variation 13.0 % (11.5-14.5) Immature Granulocyte % (Auto) 0.5 % Immature Granulocyte # (Auto) 0.03 K/uL (0.00-0.02) Prothrombin Time 10.7 SECONDS (9.0-12.0) Prothromb Time International Ratio 1.0 (0.9-1.1) Activated Partial Thromboplast Time 28.5 SECONDS (21.0-31.0) Partial Thromboplastin Ratio 1.1 Anion Gap 9.0 mmol/L (3-11) Est Creatinine Clear Calc Drug Dose 47.7 ml/min Estimated GFR () 52.3 Estimated GFR (Non- 45.1 BUN/Creatinine Ratio 18.5 (10-20) Calcium Level 9.3 mg/dl (8.5-10.1) Total Bilirubin 0.4 mg/dl (0.2-1) Aspartate Amino Transf (AST/SGOT) 9 U/L (15-37) Alanine Aminotransferase (ALT/SGPT) 18 U/L (12-78) Alkaline Phosphatase 157 U/L (45-117) Troponin I < 0.015 ng/ml (0-0.045) Total Protein 7.8 gm/dl (6.4-8.2) Albumin 3.3 gm/dl (3.4-5.0) Globulin 4.5 gm/dl (2.5-4.0) Albumin/Globulin Ratio 0.7 (0.9-2) Urine Color YELLOW Urine Appearance CLOUDY (CLEAR) Urine pH 5.5 (4.5-7.5) Urine Specific [place] 1.016 (1.000-1.030) Urine Protein TRACE (NEG) Urine Glucose (UA) NEG (NEG) Urine Ketones NEG (NEG) Urine Occult Blood NEG (NEG) Urine Nitrite NEG (NEG) Urine Bilirubin NEG (NEG) Urine Urobilinogen NEG (NEG) Urine Leukocyte Esterase LARGE (NEG) Urine WBC (Auto) >30 /hpf (0-5) Urine RBC (Auto) 0-4 /hpf (0-4) Urine Hyaline Casts (Auto) 1-5 /lpf (0-5) Urine Epithelial Cells (Auto) 10-20 /lpf (0-5) Urine Bacteria (Auto) 2+ (NEG) Medications Administered Medications (Trade) Dose Ordered Sig/[place]uyapa Route Start Time Stop Time Status Last Admin Dose Admin Sodium Chloride 1,000 ml @ 75 mls/hr [id number] IV 02/27/17 15:00 02/27/17 16:49 DC 02/27/17 15:00 75 MLS/HR ECG Indication: weakness Rate (beats per minute): 67 Rhythm: normal sinus Findings: other (nonspecific ST abnormality) Change: no significant change (11 May 2016) ED Course Complete history and physical was performed by myself Patient was discussed with Dr Salas who separately performed history and physical Patient was re-evaluated on multiple occasions with no new symptoms Patient care was discussed with her rivet catcher Dr Washington and advised for the patient to call the office to follow up in a week Patient was reassessed before discharge and discussed lab results had improved since the 1st and she was happy to be discharged. Script given for repeat BMP in 4 days with results to be sent to her rivet catcher. Medical Decision Prior records/ancillary studies reviewed. Triage Nursing notes reviewed. Additional history obtained from the patient. The patient's history was concerning for elevated Cr with Hx of renal transplant. Differential diagnosis: Etiologies such as sepsis, UTI, pneumonia, metabolic, electrolyte abnormalities , cardiac sources, intracerebral event, toxicologic, neurologic, as well as others were entertained. Physical examination: As above. Vital signs reviewed and revealed mild hypertension but were otherwise unremarkable. ER treatment provided: IV fluid hydration with Normal saline solution at 75 mL/hr. Diagnostics interpretation by me: ECG: as above The labs revealed normal WBC on CBC. Chemistry panel revealed improving Cr ( nearly back to baseline @ 1.31). LFTs - mildly elevated ALP with normal bilirubin. Cardiac enzymes were negative. UA was pending at discharge but given the lack of any urinary symptoms the results of this would not have changed management at this stage Urine cultures are pending. Imaging studies: Chest xray was unremarkable The patient was discussed with her rivet catcher Dr Washington and agreed with plan to be discharged. No need for IV fluids. Will follow up in 1 week. Patient was diagnosed with resolved IRIS from dehydration most likely secondary to her diarrheal illness which appears to be resolving. She was advised to continue all her regular medications. Medication Reconcilliation Current Medication List: was personally reviewed by me Blood Pressure Screening Patient's blood pressure: Elevated blood pressure Blood pressure disposition: Elevated BP felt to be situational, Referred to PCP Impression Primary Impression: Acute kidney injury Additional Impressions: Diarrhea Dehydration Departure Information Dispostion Home / Self-Care Condition FAIR Referrals Edmond Holliday PA-C (PCP) Tatum Washington M.D. Patient Instructions My [facility] Additional Instructions You were evaluated in the ER for elevated kidney function and diarrhea. Without IV fluids this appears to have mostly resolved and is likely to increased oral intake at home and resolution of your diarrhea. I discussed this with your rivet catcher Dr Washington and advised to call the office for an appointment to follow up next week with repeat renal function. Please continue to hydrate at home. If you are unable to tolerate liquids, increase diarrhea and fatigue please call your primary care office or in an emergency return to the ER. Resident Tracking Resident Involvement: Resident Care Provided Care Provided: Adult ED Problem Qualifiers Additional Impressions: Diarrhea Diarrhea type: unspecified type Qualified Codes: R19.7 - Diarrhea, unspecified
[2017-02-27 14:40] VITALS: TEMP 36.7
--- NOTE | 2017-02-27 14:56 | DIAGNOSTIC IMAGING REPORT ---
CHEST ONE VIEW PORTABLE CLINICAL HISTORY: fatigue, shortness of breath dyspnea COMPARISON STUDY: 2015 FINDINGS: The bones soft tissues and hemidiaphragms are normal. The cardiomediastinal silhouette is normal. The lungs are clear. The pulmonary vasculature is normal. IMPRESSION: Negative chest. The above report was generated using voice recognition software. It may contain grammatical, syntax or spelling errors. Electronically signed by: Clif Motley M.D. 02/27/2017 2:55 PM Dictated Date/Time: 02/27/2017 2:55 PM
[2017-02-27 14:58] LABS: BASO % 0.9 %; BASO ABS # 0.06 K/uL (0-0.2); COMPLETE YES; HEMATOCRIT 35.6 % (37-47); IG% 0.5 %; LYMPH % 20.9 %; LYMPH ABS # 1.38 K/uL (1.2-3.4); MEAN CELL VOLUME 88.8 fL (80-100); MEAN CORPUSCULAR HEMOGLOBIN 30.2 pg (25-34); MEAN PLATELET VOLUME 9.2 fL (7.4-10.4); MONO % 11.5 %; NEUT % 64.2 %; PLATELET COUNT 335 K/uL (130-400); RED BLOOD COUNT 4.01 M/uL (4.2-5.4); WHITE BLOOD COUNT 6.59 K/uL (4.8-10.8)
[2017-02-27] MEDS ORDERED: SODIUM CHLORIDE 0.9% 1000ML 1,000 ML IV SCH (15:00)
[2017-02-27] MEDS ORDERED: ASPI81TA28 PO (15:04)
[2017-02-27 15:06] LABS: PARTIAL THROMBOPLASTIN RATIO 1.1; PROTHROMBIN TIME (PATIENT) 10.7 SECONDS (9.0-12.0)
[2017-02-27 15:18] LABS: ALT/SGPT 18 U/L (12-78); BLOOD UREA NITROGEN 24 mg/dl (7-18); BUN/CREATININE RATIO 18.5 (10-20); CALCIUM 9.3 mg/dl (8.5-10.1); CARBON DIOXIDE 25 mmol/L (21-32); CHLORIDE 102 mmol/L (98-107); CREATININE 1.31 mg/dl (0.60-1.20); GLUCOSE 176 mg/dl (70-99); POTASSIUM 4.7 mmol/L (3.5-5.1); SODIUM 135 mmol/L (136-145)
[2017-02-27 15:23] LABS: ALB/GLOB RATIO 0.7 (0.9-2); ALKALINE PHOSPHATASE 157 U/L (45-117); AST/SGOT 9 U/L (15-37)
[2017-02-27 16:16] LABS: URINE APPEARANCE CLOUDY (CLEAR); URINE BILIRUBIN NEG (NEG); URINE COLOR YELLOW; URINE NITRITE NEG (NEG); URINE PH 5.5 (4.5-7.5); URINE SPECIFIC GRAVITY 1.016 (1.000-1.030); UROBILINOGEN NEG (NEG)
[2017-02-27 16:18] LABS: MANUAL MICROSCOPIC REQUIRED? NO; REVIEW REQ? NO
[2017-02-27 16:25] VITALS: BP 137/72; PULSE 70; O2SAT 98
--- NOTE | 2017-02-27 19:49 | EMERGENCY ROOM VISIT NOTE ---
ED Visit Note First contact with patient: 14:28 Resident Physician Supervision Note: Dr. Krause was resident physician during care of patient. I separately evaluated patient and did history and exam. I discussed the case with the resident and generally agree with the findings and plan. 56 yr old female referred for evaluation of acute renal failure. Kidney tx years ago who notes diarrhea last week resolving. Had Cr 3 earlier in week for which she is here. Other than noting feeling a bit more tired last week, no acute issues. Repeat labs show improvement in Cr. Given a bit more fluids and will need repeat evals by PCP. Diagnosis: Dehydration Documented By: Brandan Salas MD
== END 2017-02-27 16:35 | disposition home or self-care (01) ==
LOC: C.EDB 14:01
DX: N17.9 Acute kidney failure, unspecified (principal); E86.0 Dehydration; R19.7 Diarrhea, unspecified; F41.9 Anxiety disorder, unspecified; F90.9 Attention-deficit hyperactivity disorder, unspecified type; I10 Essential (primary) hypertension; F60.3 Borderline personality disorder; I25.10 Atherosclerotic heart disease of native coronary artery without angina pectoris; E11.9 Type 2 diabetes mellitus without complications; K21.9 Gastro-esophageal reflux disease without esophagitis; E21.3 Hyperparathyroidism, unspecified; Z94.0 Kidney transplant status; F32.9 Major depressive disorder, single episode, unspecified; M81.0 Age-related osteoporosis without current pathological fracture; M32.9 Systemic lupus erythematosus, unspecified; F25.9 Schizoaffective disorder, unspecified; G47.30 Sleep apnea, unspecified; Z87.440 Personal history of urinary (tract) infections; Z95.5 Presence of coronary angioplasty implant and graft; Z83.3 Family history of diabetes mellitus; Z82.49 Family history of ischemic heart disease and other diseases of the circulatory system; Z80.1 Family history of malignant neoplasm of trachea, bronchus and lung; Z79.82 Long term (current) use of aspirin; Z79.4 Long term (current) use of insulin; Z79.899 Other long term (current) drug therapy

== ENCOUNTER → 2017-03-10 | Outpatient (CLI) | payer OTHER ==
[~2017-03-10] MED LIST changes: -ACET-1256 PO; +ASPI81TA28 PO; -MULTTAB PO; -NITR-5 PO; -TRAZ50TA35 PO
== END | disposition home or self-care (01) ==
LOC: C.MAMM 09:45
PROVIDERS: ATTEND Nurse Practitioner
DX: M81.0 Age-related osteoporosis without current pathological fracture (principal); M85.859 Other specified disorders of bone density and structure, unspecified thigh

== ENCOUNTER → 2017-03-10 | Outpatient (CLI) | payer OTHER ==
[2017-03-10 12:13] LABS: HEMATOCRIT 35.7 % (37-47); MEAN CELL VOLUME 90.6 fL (80-100); MEAN CORPUSCULAR HEMOGLOBIN 29.7 pg (25-34); MEAN CORPUSCULAR HGB CONC 32.8 g/dl (32-36); MEAN PLATELET VOLUME 10.2 fL (7.4-10.4); PLATELET COUNT 278 K/uL (130-400); RED BLOOD COUNT 3.94 M/uL (4.2-5.4); WHITE BLOOD COUNT 5.77 K/uL (4.8-10.8)
[2017-03-10 12:24] LABS: ALT/SGPT 25 U/L (12-78); BLOOD UREA NITROGEN 38 mg/dl (7-18); BUN/CREATININE RATIO 16.5 (10-20); CALCIUM 9.4 mg/dl (8.5-10.1); CARBON DIOXIDE 22 mmol/L (21-32); CHLORIDE 104 mmol/L (98-107); CREATININE 2.32 mg/dl (0.60-1.20); GLUCOSE 138 mg/dl (70-99); POTASSIUM 5.5 mmol/L (3.5-5.1); SODIUM 135 mmol/L (136-145)
[2017-03-10 12:33] LABS: ALB/GLOB RATIO 0.9 (0.9-2); ALKALINE PHOSPHATASE 128 U/L (45-117); AST/SGOT 13 U/L (15-37)
== END | disposition home or self-care (01) ==
LOC: C.LAB1850 10:21
PROVIDERS: ATTEND Nurse Practitioner
DX: Z13.820 Encounter for screening for osteoporosis (principal); M81.0 Age-related osteoporosis without current pathological fracture; E55.9 Vitamin D deficiency, unspecified

== ENCOUNTER → 2017-03-19 | Outpatient (CLI) | payer OTHER ==
[~2017-03-19] MED LIST changes: +ACET-1311 PO; +ACET650S10 RE; +ASPCH81X PO; +ASPI1TAB83 PO; +ATOR10TA82 PO; +AZITTAB PO; +BACL10TA PO; +BISA10SU3 PR; +CARV25TA2 PO; +CEFD300C2 PO; +CEPH-571 PO; +CPR500 PO; +CRG125 PO; +CYM/30 PO; +DICL1GEL12 EXT; +DICL1GEL12 TD; +DULO60CA44 PO; +ERGO500011 PO; +ERTA1INJ IV; +FAMO20TA11 PO; +GABA-1220 PO; +Glargine SQ; +ISOS60TA25 PO; +LISI-461 PO; +LISI-729 PO; +LUTE20CA PO; +MULT-506 PO; +NITR-5 PO; +NTRGSL/4 SL; +ONDA4TAB10 SL; +PRLSR20 PO; +PROC10TA PO; +ROSU20TA PO; +ROSU5TAB PO; +SODI1ENE RE; +SULF800T23 PO; +TEMA15CA4 PO; +TMFUDL30 PO
== END | disposition home or self-care (01) ==
LOC: C.LABSPEC 10:43
PROVIDERS: ATTEND Nurse Practitioner
DX: Z13.820 Encounter for screening for osteoporosis (principal); M81.0 Age-related osteoporosis without current pathological fracture; E55.9 Vitamin D deficiency, unspecified

== ENCOUNTER → 2017-03-31 | Outpatient (CLI) | payer OTHER ==
[~2017-03-31] MED LIST changes: -ACET-1311 PO; -ACET650S10 RE; -ASPCH81X PO; -ASPI1TAB83 PO; -ATOR10TA82 PO; -AZITTAB PO; -BACL10TA PO; -BISA10SU3 PR; -CARV25TA2 PO; -CEFD300C2 PO; -CEPH-571 PO; -CPR500 PO; -CRG125 PO; -CYM/30 PO; -DICL1GEL12 EXT; -DICL1GEL12 TD; -DULO60CA44 PO; -ERGO500011 PO; -ERTA1INJ IV; -FAMO20TA11 PO; -GABA-1220 PO; -Glargine SQ; -ISOS60TA25 PO; -LISI-461 PO; -LISI-729 PO; -LUTE20CA PO; -MULT-506 PO; -NITR-5 PO; -NTRGSL/4 SL; -ONDA4TAB10 SL; -PRLSR20 PO; -PROC10TA PO; -ROSU20TA PO; -ROSU5TAB PO; -SODI1ENE RE; -SULF800T23 PO; -TEMA15CA4 PO; -TMFUDL30 PO
[2017-03-31 15:15] LABS: HEMATOCRIT 37.5 % (37-47); HEMOGLOBIN 12.6 g/dL (12.0-16.0); MEAN CELL VOLUME 89.7 fL (80-100); MEAN CORPUSCULAR HEMOGLOBIN 30.1 pg (25-34); MEAN CORPUSCULAR HGB CONC 33.6 g/dl (32-36); MEAN PLATELET VOLUME 10.2 fL (7.4-10.4); PLATELET COUNT 241 K/uL (130-400); RED CELL DISTRIBUTION WIDTH CV 14.5 % (11.5-14.5); RED CELL DISTRIBUTION WIDTH SD 46.9 fL (36.4-46.3); WHITE BLOOD COUNT 9.45 K/uL (4.8-10.8)
[2017-03-31 15:22] LABS: ALBUMIN 3.5 gm/dl (3.4-5.0); BLOOD UREA NITROGEN 20 mg/dl (7-18); CALCIUM 9.2 mg/dl (8.5-10.1); CARBON DIOXIDE 27 mmol/L (21-32); CREATININE 1.25 mg/dl (0.60-1.20); GLUCOSE 206 mg/dl (70-99); PHOSPHORUS 3.4 mg/dl (2.5-4.9); POTASSIUM 4.3 mmol/L (3.5-5.1); SODIUM 136 mmol/L (136-145)
== END | disposition home or self-care (01) ==
LOC: C.LAB1850 13:05
PROVIDERS: ATTEND Internal Medicine Nephrology
DX: Z94.0 Kidney transplant status (principal)

== ENCOUNTER 2017-05-10 20:27 | Observation (INO) | payer OTHER, BC ==
[~2017-05-10] VITALS: Ht 162.6 cm; Wt 73.4 kg
[2017-05-10] MEDS ORDERED: FAMOTIDINE 20MG/5ML IV PUSH IV STA (20:47)
[2017-05-10] MEDS ORDERED: SODIUM CHLORIDE 0.9% 250ML 250 ML IV STA (20:47)
[2017-05-10] MEDS ORDERED: ALBUT/IPRATROP 3MG/0.5MG NEB 3 ML VIAL INH STA (20:55)
--- NOTE | 2017-05-10 20:57 | EMERGENCY ROOM VISIT NOTE ---
History Report prepared by Savi: Heydi Avalos Under the Supervision of: Dr. Saad Thomas M.D. First contact with patient: 20:44 Chief Complaint: FLU LIKE SX Stated Complaint: FLU SYMPTOMS History of Present Illness The patient is a 57 year old female who presents to the Emergency Room with complaints of flu like symptoms beginning yesterday. She states someone was driving her to the doctor and she passed out. Last night, she "barely made it through the door." She then tried taking her medication and threw them up. She has chills and a cough but denies any SOB. She also notes she has been having "accidents" and peeing in her pants throughout the day. Source of History: patient Onset: yesterday Position: other (global) Associated Symptoms: + chills, + cough, + urinary symptoms (accidents), No SOB Review of Systems See HPI for pertinent positives and negatives. A total of ten systems were reviewed and were otherwise negative. Past Medical & Surgical Medical Problems: (1) Anxiety (2) Attention deficit hyperactivity disorder (3) Benign hypertension (4) Borderline personality disorder (5) Cerebrovascular disease (6) Coronary artery disease (7) Diabetes mellitus type 2 (8) Gastroesophageal reflux disease (9) Hyperparathyroidism (10) Kidney transplant status, cadaveric (11) Major depression, recurrent (12) MDRO (multiple drug resistant organisms) resistance (13) Osteoporosis (14) Schizoaffective disorder (15) Sleep apnea (16) Systemic lupus erythematosus (17) Urinary tract infection due to extended-spectrum beta lactamase (ESBL) producing Escherichia coli Surgical Problems: (1) Status post coronary artery stent placement (2) Status post kidney transplant (3) Status post parathyroidectomy Family History FH: dementia MOTHER FH: diabetes mellitus SISTER GRANDMOTHER FH: heart disease FATHER MOTHER FH: lung cancer FATHER FH: rheumatoid arthritis SISTER FHx: heart disease Social History Smoking Status: Never Smoker Alcohol Use: none Drug Use: none Marital Status: single Housing Status: lives alone Occupation Status: disabled Current/Historical Medications Unable to Obtain Active Prescriptions or Reported Meds Allergies Coded Allergies: Penicillins (Unverified Allergy, Mild, ITCHY, ANXIETY, 02/27/17) Acetaminophen (Unverified Allergy, Unknown, RASH, 02/27/17) Loperamide (Verified Allergy, Unknown, 02/27/17) Vancomycin (Verified Allergy, Unknown, 02/27/17) Ziprasidone (Verified Allergy, Unknown, itching, 02/27/17) Physical Exam Vital Signs Date Time Temp Pulse Resp B/P (MAP) Pulse Ox O2 Delivery O2 Flow Rate FiO2 05/11/17 00:45 67 23 94 05/11/17 00:31 130/70 05/11/17 00:30 69 94 05/11/17 00:29 135/83 05/11/17 00:15 66 26 92 05/11/17 00:00 70 26 97 05/10/17 23:55 68 20 93 05/10/17 23:40 69 20 93 05/10/17 23:10 70 19 96 05/10/17 23:00 119/71 05/10/17 22:55 67 94 05/10/17 22:40 69 92 05/10/17 22:35 68 20 94 Room Air 05/10/17 22:30 133/66 05/10/17 22:20 68 26 94 05/10/17 22:05 65 99 05/10/17 22:00 119/63 05/10/17 21:50 65 24 100 05/10/17 21:45 130/85 05/10/17 21:42 69 20 05/10/17 21:01 89/56 05/10/17 20:57 70 24 95 Room Air 05/10/17 20:42 71 18 05/10/17 20:32 37.0 72 20 93/49 95 Room Air 05/10/17 20:31 93/49 Physical Exam GENERAL: Awake, alert, well-appearing, in no distress HENT: Normocephalic, atraumatic. Oropharynx unremarkable. Dry mucus membranes EYES: Normal conjunctiva. Sclera non-icteric. NECK: Supple. No nuchal rigidity. FROM. No JVD. RESPIRATORY: Diminished breath sounds at the bases with scant intermittent rhonchi. CARDIAC: Regular rate, normal rhythm. Extremities warm and well perfused. Pulses equal. ABDOMEN: Obese abdomen. Soft, tender. RECTAL: Deferred. MUSCULOSKELETAL: Chest examination reveals no tenderness. The back is symmetrical on inspection without obvious abnormality. There is no CVA tenderness to palpation. No joint edema. LOWER EXTREMITIES: Calves are equal size bilaterally and non-tender. No edema. No discoloration. NEURO: Normal sensorium. No sensory or motor deficits noted. SKIN: No rash or jaundice noted. Medical Decision & Procedures Laboratory Results 05/10/17 21:05 Red Blood Count 4.14, Mean Corpuscular Volume 87.9, Mean Corpuscular Hemoglobin 29.7, Mean Corpuscular Hemoglobin Concent 33.8, Mean Platelet Volume 10.1, Neutrophils (%) (Auto) 65.3, Lymphocytes (%) (Auto) 11.7, Monocytes (%) (Auto) 22.2, Eosinophils (%) (Auto) 0.2, Basophils (%) (Auto) 0.2, Neutrophils # (Auto ) 3.63, Lymphocytes # (Auto) 0.65, Monocytes # (Auto) 1.23, Eosinophils # (Auto ) 0.01, Basophils # (Auto) 0.01 05/10/17 21:05 Test 05/10/17 00:00 05/10/17 21:05 05/10/17 21:35 Influenza Type A Antigen POS for Influ A (NEG) Influenza Type B Antigen Neg for Influ B (NEG) White Blood Count 5.55 K/uL (4.8-10.8) Red Blood Count 4.14 M/uL (4.2-5.4) Hemoglobin 12.3 g/dL (12.0-16.0) Hematocrit 36.4 % (37-47) Mean Corpuscular Volume 87.9 fL (80-100) Mean Corpuscular Hemoglobin 29.7 pg (25-34) Mean Corpuscular Hemoglobin Concent 33.8 g/dl (32-36) Platelet Count 187 K/uL (130-400) Mean Platelet Volume 10.1 fL (7.4-10.4) Neutrophils (%) (Auto) 65.3 % Lymphocytes (%) (Auto) 11.7 % Monocytes (%) (Auto) 22.2 % Eosinophils (%) (Auto) 0.2 % Basophils (%) (Auto) 0.2 % Neutrophils # (Auto) 3.63 K/uL (1.4-6.5) Lymphocytes # (Auto) 0.65 K/uL (1.2-3.4) Monocytes # (Auto) 1.23 K/uL (0.11-0.59) Eosinophils # (Auto) 0.01 K/uL (0-0.5) Basophils # (Auto) 0.01 K/uL (0-0.2) RDW Standard Deviation 46.9 fL (36.4-46.3) RDW Coefficient of Variation 14.4 % (11.5-14.5) Immature Granulocyte % (Auto) 0.4 % Immature Granulocyte # (Auto) 0.02 K/uL (0.00-0.02) Prothrombin Time 10.8 SECONDS (9.0-12.0) Prothromb Time International Ratio 1.0 (0.9-1.1) Anion Gap 10.0 mmol/L (3-11) Est Creatinine Clear Calc Drug Dose 44.2 ml/min Estimated GFR () 50.5 Estimated GFR (Non- 43.6 BUN/Creatinine Ratio 20.3 (10-20) Lactic Acid Level 1.2 mmol/L (0.4-2.0) Calcium Level 8.9 mg/dl (8.5-10.1) Total Bilirubin 0.5 mg/dl (0.2-1) Direct Bilirubin 0.2 mg/dl (0-0.2) Aspartate Amino Transf (AST/SGOT) 12 U/L (15-37) Alanine Aminotransferase (ALT/SGPT) 16 U/L (12-78) Alkaline Phosphatase 109 U/L (45-117) Troponin I < 0.015 ng/ml (0-0.045) Pro-B-Type Natriuretic Peptide 39146 pg/ml (0-900) Total Protein 7.2 gm/dl (6.4-8.2) Albumin 2.7 gm/dl (3.4-5.0) Lipase 175 U/L (73-393) Urine Color DK YELLOW Urine Appearance CLOUDY (CLEAR) Urine pH 5.0 (4.5-7.5) Urine Specific [place] 1.016 (1.000-1.030) Urine Protein TRACE (NEG) Urine Glucose (UA) NEG (NEG) Urine Ketones 2+ (NEG) Urine Occult Blood NEG (NEG) Urine Nitrite NEG (NEG) Urine Bilirubin NEG (NEG) Urine Urobilinogen NEG (NEG) Urine Leukocyte Esterase MODERATE (NEG) Urine WBC (Auto) >30 /hpf (0-5) Urine RBC (Auto) 0-4 /hpf (0-4) Urine Hyaline Casts (Auto) 5-10 /lpf (0-5) Urine Epithelial Cells (Auto) 0-5 /lpf (0-5) Urine Bacteria (Auto) 4+ (NEG) Laboratory results reviewed by me Medications Administered Medications (Trade) Dose Ordered Sig/[place] Route Start Time Stop Time Status Last Admin Dose Admin Sodium Chloride 250 ml @ 999 mls/hr Q16M STAT IV 05/10/17 20:47 05/10/17 21:02 DC 05/10/17 21:10 999 MLS/HR Famotidine (Pepcid 20mg Iv Push) 20 mg NOW STAT IV 05/10/17 20:47 05/10/17 20:53 DC 05/10/17 21:12 20 MG Albuterol/ Ipratropium (Duoneb) 3 ml NOW STAT INH 05/10/17 20:55 05/10/17 20:57 DC 05/10/17 21:15 3 ML Sodium Chloride ([place] Nasal [place]) 2 sprays NOW ONCE NA 05/10/17 21:00 05/10/17 21:01 DC 05/10/17 21:14 2 SPRAYS Oseltamivir Phosphate (Tamiflu Susp) 30 mg ONE STAT PO 05/10/17 23:38 05/11/17 00:06 DC 05/11/17 00:28 30 MG ECG Per My Interpretation Indication: weakness Rate (beats per minute): 65 Rhythm: normal sinus Findings: no acute ischemic change, other (Normal axis) Change: no significant change (02/27/2017) ED Course 2046: The patient was evaluated in room B11. A complete history and physical exam was performed. Medical Decision I reviewed the patient's past medical history, medications, and the nursing notes as described above. Differential diagnosis: Etiologies such as infections, reactive airway disease, pneumonia, pneumothorax , COPD, CHF, cardiac ischemia, pulmonary embolism, musculoskeletal, gastrointestinal, as well as others were entertained. The patient is a 57-year-old woman with a past medical history of renal transplant on Prograf and mycophenolate, CHF with EF of 35% who presents emergency Department with generalized weakness cough congestion and body aches over the past several days per hpi. On arrival the patient is fatigued appearing but in NAD, AFVSS. EKG is normal sinus without any evidence of acute ischemia. Troponin negative. BNP elevated in the setting of the patient's known CHF however CXR with lungs clear without significant pulmonary edema. WBC wnl. Cr at baseline. The patient was reassessed and appeared improved and I explained that while the patient was influenza positive the rest of her evaluation was reassuring annual be reasonable to discharge her if she was feeling improved. However, the patient reports still feeling extremely weak or she feels that she can't walk. She agreed to attempt an ambulatory trial however when the nurse went to assist her she said "I will try but I am telling you I will fall right to the ground." Thus given the patient's apparent impaired functional status in the setting of influenza with her multiple comorbidities will admit the patient. The case was discussed with Dr. Jolly, [facility] hospitalist, who will admit the patient for further management. Medication Reconcilliation Current Medication List: was personally reviewed by me Blood Pressure Screening Patient's blood pressure: Low blood pressure Blood pressure disposition: Referred to PCP Impression Primary Impression: Influenza A Additional Impression: Generalized weakness Scribe Attestation The scribe's documentation has been prepared under my direction and personally reviewed by me in its entirety. I confirm that the note above accurately reflects all work, treatment, procedures, and medical decision making performed by me. Departure Information Prescriptions Unable to Obtain Active Prescriptions or Reported Meds Referrals Mikala Vásquez (PCP) Patient Instructions My [facility] Problem Qualifiers
[2017-05-10] MEDS ORDERED: SODIUM CHLORIDE 0.65% NA SOLN 45 ML (OCEAN) ONE (21:00)
[2017-05-10 21:20] LABS: BASO % 0.2 %; BASO ABS # 0.01 K/uL (0-0.2); EOS % 0.2 %; EOS ABS # 0.01 K/uL (0-0.5); HEMATOCRIT 36.4 % (37-47); HEMOGLOBIN 12.3 g/dL (12.0-16.0); IG# 0.02 K/uL (0.00-0.02); LYMPH % 11.7 %; LYMPH ABS # 0.65 K/uL (1.2-3.4); MEAN CELL VOLUME 87.9 fL (80-100); MEAN CORPUSCULAR HEMOGLOBIN 29.7 pg (25-34); MEAN CORPUSCULAR HGB CONC 33.8 g/dl (32-36); MEAN PLATELET VOLUME 10.1 fL (7.4-10.4); MONO % 22.2 %; MONO ABS # 1.23 K/uL (0.11-0.59); NEUT % 65.3 %; NEUT ABS # 3.63 K/uL (1.4-6.5); PLATELET COUNT 187 K/uL (130-400); RED CELL DISTRIBUTION WIDTH CV 14.4 % (11.5-14.5); RED CELL DISTRIBUTION WIDTH SD 46.9 fL (36.4-46.3); WHITE BLOOD COUNT 5.55 K/uL (4.8-10.8)
[2017-05-10 21:30] LABS: INFLUENZA B ANTIGEN Neg for Influ B (NEG)
[2017-05-10 21:34] LABS: ALBUMIN 2.7 gm/dl (3.4-5.0); ALT/SGPT 16 U/L (12-78); BLOOD UREA NITROGEN 27 mg/dl (7-18); CALCIUM 8.9 mg/dl (8.5-10.1); CARBON DIOXIDE 22 mmol/L (21-32); CREATININE 1.34 mg/dl (0.60-1.20); GLUCOSE 186 mg/dl (70-99); LIPASE 175 U/L (73-393); POTASSIUM 4.9 mmol/L (3.5-5.1); SODIUM 136 mmol/L (136-145)
[2017-05-10 21:39] LABS: ALKALINE PHOSPHATASE 109 U/L (45-117); AST/SGOT 12 U/L (15-37); TOTAL PROTEIN 7.2 gm/dl (6.4-8.2)
--- NOTE | 2017-05-10 22:38 | DIAGNOSTIC IMAGING REPORT ---
CHEST ONE VIEW PORTABLE CLINICAL HISTORY: Abdominal pain. COMPARISON STUDY: Chest radiograph February 27, 2017. FINDINGS: No lucency is identified under the hemidiaphragms to suggest pneumoperitoneum on this exam. Borderline cardiomegaly is noted. There is no evidence for pulmonary edema. Lung volumes are mildly diminished. There is no consolidation. Old left-sided rib fractures are identified. IMPRESSION: No acute cardiopulmonary findings. Electronically signed by: Florian Ro M.D. 05/10/2017 10:36 PM Dictated Date/Time: 05/10/2017 10:35 PM
[2017-05-10] MEDS ORDERED: OSELTAMIVIR PHOSPHATE 75 MG CAP PO STA (23:38)
[2017-05-10] MEDS ORDERED: OSELTAMIVIR PHOSPHATE SUSP 30 MG/5 ML UDP PO STA (23:38)
[2017-05-11] VITALS (11 sets, daily range): BP systolic 138–154; BP diastolic 74–114; PULSE 59–74; TEMP 37.1–38; O2SAT 93–99; BMI 27.8
[2017-05-11] MEDS ORDERED: MAGNESIUM HYDROXIDE SUSP 30 ML UDC PO PRN (00:45)
[2017-05-11] MEDS ORDERED: ALUMINUM/MAGNESIUM/SIMETH (MAALOX MAX) 30 ML UDC PO PRN (00:45)
[2017-05-11] MEDS ORDERED: ONDANSETRON INJ 2 MG/ML 2 ML VIAL IV PRN (00:45)
[2017-05-11] MEDS ORDERED: CEFTRIAXONE SOD INJ 1 GM in DEXTROSE 5% ADD-VANTAGE 50ML 50 ML IV SCH (00:45)
[2017-05-11] MEDS ORDERED: IV FLUIDS COMPLETED PRN (01:15)
--- NOTE | 2017-05-11 01:29 | History and Physical ---
History & Physical Date & Time of Service: May 11, 2017 at 00:50 Chief Complaint: Flu Symptoms Primary Care Physician: Mikala Vásquez History of Present Illness Source: patient, hospital records 57 y/o F - complex medical history includes - renal transplant 1989, CAD, DM II , hypothyroidism, TAMARA, SLE, schizoaffective disorder. Presents primarily with weakness and suspected fever. She states she may have lost consciousness earlier when in the passenger seat of a car. She also reports urinary incontinence throughout the day. Initial labs are notable for a (+) influ A, (+ ) UA. The pt was slated for DC form the ER as her labs and vitals did not otherwise display any abnormalities. She then stated that she could not ambulate due to weakness and indeed, attempts to ambulate the pt failed miserably. Considering her underlying morbidities, she will be at least be observed overnight. Past Medical/Surgical History 1) MDR E coli - 05/10 2) Renal transplant 1998 3) Schizoaffective disorder 4) Hypothyroidism 5) Hyperparathyroidism 6) CAD - cath/stent placement 7) DM II 8) TAMARA - does not comply with any therapy 9) SLE 10) Gerd 11) Borderline personality 12) HTN 13) HPL 14) Osteoporosis Surgical: 1) Parathyroidectomy 2) Cardiac stent 3) Renal transplant Family History FH: dementia MOTHER FH: diabetes mellitus SISTER GRANDMOTHER FH: heart disease FATHER MOTHER FH: lung cancer FATHER FH: rheumatoid arthritis SISTER FHx: heart disease Social History Smoking Status: Never Smoker Drug Use: none Marital Status: single Housing status: lives alone Occupational Status: disabled Immunizations History of Influenza Vaccine: Yes History of Tetanus Vaccine?: Unknown History of Pneumococcal: Yes Pneumococcal Date: Jun 23, 2001 History of Hepatitis B Vaccine: Unknown Multi-Drug Resistant Organisms History of MDRO: Yes Type of MDRO: other Allergies Coded Allergies: Penicillins (Unverified Allergy, Mild, ITCHY, ANXIETY, 02/27/17) Acetaminophen (Unverified Allergy, Unknown, RASH, 02/27/17) Loperamide (Verified Allergy, Unknown, 02/27/17) Vancomycin (Verified Allergy, Unknown, 02/27/17) Ziprasidone (Verified Allergy, Unknown, itching, 02/27/17) Home Medications Unable to Obtain Active Prescriptions or Reported Meds Review of Systems Constitutional: + fever, + weakness, + fatigue, No chills, No sweats Eyes: No worsening of vision ENT: No hearing loss, No unusual epistaxis, No nasal symptoms Respiratory: No cough, No sputum, No wheezing Cardiovascular: No chest pain Abdomen: No pain, No nausea, No vomiting Musculoskeletal: No joint pain Genitourinary - Female: + urinary frequency, + urinary incontinence, No dysuria , No urinary urgency Neurologic: + weakness, + problem reported (May have passed out while riding in a car - may have fallen asleep alternatively), No memory loss Psychiatric: + depression symptoms Endocrine: + fatigue Hematologic / Lymphatic: No abnormal bleeding/bruising Integumentary: No rash Allergic / Immunologic: No environmental allergies Physical Exam Vital Signs Date Time Temp Pulse Resp B/P (MAP) Pulse Ox O2 Delivery O2 Flow Rate FiO2 05/10/17 23:55 68 20 93 05/10/17 23:40 69 20 93 05/10/17 23:10 70 19 96 05/10/17 23:00 119/71 05/10/17 22:55 67 94 05/10/17 22:40 69 92 05/10/17 22:35 68 20 94 Room Air 05/10/17 22:30 133/66 05/10/17 22:20 68 26 94 05/10/17 22:05 65 99 05/10/17 22:00 119/63 05/10/17 21:50 65 24 100 05/10/17 21:45 130/85 05/10/17 21:42 69 20 05/10/17 21:01 89/56 05/10/17 20:57 70 24 95 Room Air 05/10/17 20:42 71 18 05/10/17 20:32 37.0 72 20 93/49 95 Room Air 05/10/17 20:31 93/49 General Appearance: WD/WN, no apparent distress Head: normocephalic Eyes: normal inspection ENT: normal ENT inspection, pharynx normal Neck: supple, no JVD Respiratory/Chest: chest non-tender, lungs clear, normal breath sounds Cardiovascular: regular rate, rhythm, no edema Abdomen/GI: normal bowel sounds, non tender, soft Back: normal inspection, no CVA tenderness Extremities/Musculoskelatal: normal inspection, no calf tenderness, normal capillary refill Neurologic/Psych: chief information officer II-XII nml as tested, no motor/sensory deficits, alert, oriented x 3 Skin: + pertinent finding (Multiple moles and areas of hyperpigmentation ) Diagnostics Laboratory Results Results Past 24 Hours Test 05/10/17 21:05 05/10/17 21:35 Range/Units White Blood Count 5.55 4.8-10.8 K/uL Red Blood Count 4.14 4.2-5.4 M/uL Hemoglobin 12.3 12.0-16.0 g/dL Hematocrit 36.4 37-47 % Mean Corpuscular Volume 87.9 80-100 fL Mean Corpuscular Hemoglobin 29.7 25-34 pg Mean Corpuscular Hemoglobin Concent 33.8 32-36 g/dl Platelet Count 187 130-400 K/uL Mean Platelet Volume 10.1 7.4-10.4 fL Neutrophils (%) (Auto) 65.3 % Lymphocytes (%) (Auto) 11.7 % Monocytes (%) (Auto) 22.2 % Eosinophils (%) (Auto) 0.2 % Basophils (%) (Auto) 0.2 % Neutrophils # (Auto) 3.63 1.4-6.5 K/uL Lymphocytes # (Auto) 0.65 1.2-3.4 K/uL Monocytes # (Auto) 1.23 0.11-0.59 K/uL Eosinophils # (Auto) 0.01 0-0.5 K/uL Basophils # (Auto) 0.01 0-0.2 K/uL RDW Standard Deviation 46.9 36.4-46.3 fL RDW Coefficient of Variation 14.4 11.5-14.5 % Immature Granulocyte % (Auto) 0.4 % Immature Granulocyte # (Auto) 0.02 0.00-0.02 K/uL Sodium Level 136 136-145 mmol/L Potassium Level 4.9 3.5-5.1 mmol/L Chloride Level 104 98-107 mmol/L Carbon Dioxide Level 22 21-32 mmol/L Anion Gap 10.0 3-11 mmol/L Blood Urea Nitrogen 27 7-18 mg/dl Creatinine 1.34 0.60-1.20 mg/dl Est Creatinine Clear Calc Drug Dose 44.2 ml/min Estimated GFR () 50.5 Estimated GFR (Non- 43.6 BUN/Creatinine Ratio 20.3 10-20 Random Glucose 186 70-99 mg/dl Lactic Acid Level 1.2 0.4-2.0 mmol/L Calcium Level 8.9 8.5-10.1 mg/dl Total Bilirubin 0.5 0.2-1 mg/dl Direct Bilirubin 0.2 0-0.2 mg/dl Aspartate Amino Transf (AST/SGOT) 12 15-37 U/L Alanine Aminotransferase (ALT/SGPT) 16 12-78 U/L Alkaline Phosphatase 109 45-117 U/L Troponin I < 0.015 0-0.045 ng/ml Pro-B-Type Natriuretic Peptide 08024 0-900 pg/ml Total Protein 7.2 6.4-8.2 gm/dl Albumin 2.7 3.4-5.0 gm/dl Lipase 175 73-393 U/L Urine Color DK YELLOW Urine Appearance CLOUDY CLEAR Urine pH 5.0 4.5-7.5 Urine Specific [place] 1.016 1.000-1.030 Urine Protein TRACE NEG Urine Glucose (UA) NEG NEG Urine Ketones 2+ NEG Urine Occult Blood NEG NEG Urine Nitrite NEG NEG Urine Bilirubin NEG NEG Urine Urobilinogen NEG NEG Urine Leukocyte Esterase MODERATE NEG Urine WBC (Auto) >30 0-5 /hpf Urine RBC (Auto) 0-4 0-4 /hpf Urine Hyaline Casts (Auto) 5-10 0-5 /lpf Urine Epithelial Cells (Auto) 0-5 0-5 /lpf Urine Bacteria (Auto) 4+ NEG Microbiology Results 05/10/17 Blood Culture, Received Pending 05/10/17 Blood Culture, Received Pending 05/10/17 Urine Culture, Received Pending Impression Assessment and Plan 57 y/o F - complex medical history includes - renal transplant 1989, CAD, DM II , hypothyroidism, TAMARA, SLE, schizoaffective disorder. Presents primarily with weakness and suspected fever. She states she may have lost consciousness earlier when in the passenger seat of a car. She also reports urinary incontinence throughout the day. Initial labs are notable for a (+) influ A, (+ ) UA. The pt was slated for DC form the ER as her labs and vitals did not otherwise display any abnormalities. She then stated that she could not ambulate due to weakness and indeed, attempts to ambulate the pt failed miserably. Considering her underlying morbidities, she will be at least be observed overnight. 1) Influ A - placed on Tamiflu, IVF provided - she cannot tolerate Tylenol - her renal function is basically normal so low doses of Ibu are likely OK in the short-term if an antipyretic is needed. We can request a PT/OT assessment AM if she remains unable to ambulate. 2) UTI - would explain her reports of acute incontinence - placed on Ertapenem pending culture results she has a history of MDR E Coli 05/10. 3) Renal transplant - cont Mycophenolate, Cyclosporine. 4) DM - placed on SS. 5) CAD - cont ASA, Imdur, statin, B sharif. 6) Hypothyroidism - cont Synthroid. 7) Schizoaffective - also diagnosed with borderline personality - per ER she can become quite abusive with staff. Cont prescribed meds without interruption. The pt was unable to provide a current medication list - she purchases her meds at [facility] which will not be open for a few hours yet Full code - Heparin prophylaxis Total time for this admit including review of labs, meds, imaging, records - discussion with pt and ER attending 38 min. Level of Care Med/Surg Resuscitation Status FULL RESUSCITATION VTE Prophylaxis VTE Risk Assessment Done? Y/N: Yes Risk Level: Moderate Given or contraindicated: Unfractionated heparin SQ
[2017-05-11] MEDS ORDERED: SODIUM CHLORIDE 0.9% 1000ML 1,000 ML IV SCH (01:45)
[2017-05-11] MEDS ORDERED: POLYETHYLENE (MIRALAX) 17 GM PACK PO PRN (01:45)
[2017-05-11] MEDS ORDERED: DEXTROSE 50% 50 ML SYR IV PRN (01:45)
[2017-05-11] MEDS ORDERED: GLUCAGON FOR INJ 1 MG VIAL SQ PRN (01:45)
[2017-05-11] MEDS ORDERED: GLUCOSE 10 TABS/TUBE PO PRN (01:45)
[2017-05-11] MEDS ORDERED: GLUCOSE 40% GEL 15 GM TUBE PO PRN (01:45)
[2017-05-11] MEDS: INSULIN ASPART 100 UNITS/ML 3 ML PEN SC SCH ×5 (02:00→20:55)
[2017-05-11] MEDS: ERTAPENEM IV 1,000 MG in SODIUM CHLORIDE 0.9% 50ML 50 ML IV SCH (02:07)
[2017-05-11] MEDS: HEPARIN SOD 5000 UNIT/0.5 ML CARP SQ SCH ×3 (06:00→21:00)
[2017-05-11] MEDS ORDERED: ONDANSETRON INJ 2 MG/ML 2 ML VIAL IV STA (07:45)
[2017-05-11] MEDS: OSELTAMIVIR PHOSPHATE SUSP 30 MG/5 ML UDP PO SCH ×2 (08:38→21:00)
[2017-05-11] MEDS: ALBUT/IPRATROP 3MG/0.5MG NEB 3 ML VIAL INH SCH ×2 (14:39→19:31)
[2017-05-11] MEDS ORDERED: CALCIUM CARBONATE 500 MG CHEWABLE PO PRN (16:00)
--- NOTE | 2017-05-11 16:16 | Family Medicine Progress Note ---
Progress Note Date of Service May 11, 2017. Subjective Spoke with patient as she lay in her bed. She appears tired, but is cooperative. States her cough has been bothering her, and her chest hurts when she coughs. She reports a dry cough. 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 Per night team note, pt was admitted due to weakness. Denies SOB, headaches, abdominal pain, diarrhea, constipation, lower extremity swelling. ROS See HPI for pertinent positives and negatives. Medications Current Inpatient Medications Medications (Trade) Dose Ordered Sig/[place] Route Start Time Stop Time Status Last Admin Dose Admin Heparin Sodium (Porcine) (Heparin Sq 5000 Unit/0.5ml) 5,000 unit Q8H SQ 05/11/17 06:00 06/10/17 05:59 Al Hydrox/Mg Hydrox/Simethicone (Maalox Max Susp) 15 ml Q4H PRN PO 05/11/17 00:45 06/10/17 00:44 Magnesium Hydroxide (Milk Of Magnesia Susp) 30 ml Q6H PRN PO 05/11/17 00:45 06/10/17 00:44 Polyethylene (Miralax Powder Packet) 17 gm DAILY PRN PO 05/11/17 01:45 06/10/17 01:44 Ondansetron HCl (Zofran Inj) 4 mg Q6H PRN IV 05/11/17 00:45 06/10/17 00:44 Miscellaneous (Iv Fluids Completed) 1 ea PRN PRN N/A 05/11/17 01:15 05/11/18 01:14 Ertapenem 1000 mg/ Sodium Chloride 60 ml @ 120 mls/hr Q24H IV 05/11/17 02:00 05/21/17 01:59 05/11/17 02:07 120 MLS/HR Insulin Aspart (novoLOG ASPART) SLIDING SCALE G... ACHS SC 05/11/17 02:00 06/10/17 01:59 Glucose (Glucose 40% Gel) 15-30 GRAMS 15 GRAMS... UD PRN PO 05/11/17 01:45 06/10/17 01:44 Glucose (Glucose Chew Tab) 4-8 Tablets 4 Tabl... UD PRN PO 05/11/17 01:45 06/10/17 01:44 Dextrose (Dextrose 50% 50ML Syringe) 25-50ML OF 50% DW IV FOR... UD PRN IV 05/11/17 01:45 06/10/17 01:44 Glucagon (Glucagon Inj) 1 mg UD PRN SQ 05/11/17 01:45 06/10/17 01:44 Oseltamivir Phosphate (Tamiflu Susp) 30 mg BID PO 05/11/17 08:00 05/16/17 07:59 05/11/17 08:38 30 MG Albuterol/ Ipratropium (Duoneb) 3 ml QIDR INH 05/11/17 12:00 06/10/17 11:59 05/11/17 14:39 3 ML Objective Vital Signs Date Time Temp Pulse Resp B/P (MAP) Pulse Ox O2 Delivery O2 Flow Rate FiO2 05/11/17 14:39 59 22 96 Room Air 05/11/17 11:28 71 24 96 Room Air 05/11/17 08:50 37.1 05/11/17 08:22 38.0 67 16 148/82 (104) 93 Room Air 05/11/17 08:00 99 Room Air 05/11/17 03:00 138/74 (95) 05/11/17 01:41 37.4 74 22 150/114 99 Room Air 05/11/17 01:03 122/69 05/11/17 01:00 68 22 122/69 96 Room Air 05/11/17 00:45 67 23 94 05/11/17 00:31 130/70 05/11/17 00:30 69 94 05/11/17 00:29 135/83 05/11/17 00:15 66 26 92 05/11/17 00:00 70 26 97 05/10/17 23:55 68 20 93 05/10/17 23:40 69 20 93 05/10/17 23:10 70 19 96 05/10/17 23:00 119/71 05/10/17 22:55 67 94 05/10/17 22:40 69 92 05/10/17 22:35 68 20 94 Room Air 05/10/17 22:30 133/66 05/10/17 22:20 68 26 94 05/10/17 22:05 65 99 05/10/17 22:00 119/63 05/10/17 21:50 65 24 100 05/10/17 21:45 130/85 05/10/17 21:42 69 20 05/10/17 21:01 89/56 05/10/17 20:57 70 24 95 Room Air 05/10/17 20:42 71 18 05/10/17 20:32 37.0 72 20 93/49 95 Room Air 05/10/17 20:31 93/49 Physical Exam Notes: GENERAL: Awake, alert. Obese. Looks tired. Dry cough. HENT: Normocephalic, atraumatic. EYES: Normal conjunctiva. Sclera non-icteric. NECK: Supple. No nuchal rigidity. FROM. No JVD. RESPIRATORY: Clear to auscultation - mild wheezes heard bilaterally. CARDIAC: Regular rate, normal rhythm. Extremities warm and well perfused. Pulses equal. ABDOMEN: Soft, non-distended. No tenderness to palpation. No rebound or guarding. No masses. RECTAL: Deferred. MUSCULOSKELETAL: Chest examination reveals no tenderness. The back is symmetrical on inspection without obvious abnormality. There is no CVA tenderness to palpation. No joint edema. LOWER EXTREMITIES: Calves are equal size bilaterally and non-tender. No edema. No discoloration. NEURO: No motor deficits noted. SKIN: No rash or jaundice noted. Laboratory Results 05/10/17 21:05 Red Blood Count 4.14, Mean Corpuscular Volume 87.9, Mean Corpuscular Hemoglobin 29.7, Mean Corpuscular Hemoglobin Concent 33.8, Mean Platelet Volume 10.1, Neutrophils (%) (Auto) 65.3, Lymphocytes (%) (Auto) 11.7, Monocytes (%) (Auto) 22.2, Eosinophils (%) (Auto) 0.2, Basophils (%) (Auto) 0.2, Neutrophils # (Auto ) 3.63, Lymphocytes # (Auto) 0.65, Monocytes # (Auto) 1.23, Eosinophils # (Auto ) 0.01, Basophils # (Auto) 0.01 05/10/17 21:05 Test 05/10/17 21:05 05/10/17 21:35 05/11/17 11:53 White Blood Count 5.55 K/uL (4.8-10.8) Red Blood Count 4.14 M/uL (4.2-5.4) Hemoglobin 12.3 g/dL (12.0-16.0) Hematocrit 36.4 % (37-47) Mean Corpuscular Volume 87.9 fL (80-100) Mean Corpuscular Hemoglobin 29.7 pg (25-34) Mean Corpuscular Hemoglobin Concent 33.8 g/dl (32-36) Platelet Count 187 K/uL (130-400) Mean Platelet Volume 10.1 fL (7.4-10.4) Neutrophils (%) (Auto) 65.3 % Lymphocytes (%) (Auto) 11.7 % Monocytes (%) (Auto) 22.2 % Eosinophils (%) (Auto) 0.2 % Basophils (%) (Auto) 0.2 % Neutrophils # (Auto) 3.63 K/uL (1.4-6.5) Lymphocytes # (Auto) 0.65 K/uL (1.2-3.4) Monocytes # (Auto) 1.23 K/uL (0.11-0.59) Eosinophils # (Auto) 0.01 K/uL (0-0.5) Basophils # (Auto) 0.01 K/uL (0-0.2) RDW Standard Deviation 46.9 fL (36.4-46.3) RDW Coefficient of Variation 14.4 % (11.5-14.5) Immature Granulocyte % (Auto) 0.4 % Immature Granulocyte # (Auto) 0.02 K/uL (0.00-0.02) Prothrombin Time 10.8 SECONDS (9.0-12.0) Prothromb Time International Ratio 1.0 (0.9-1.1) Anion Gap 10.0 mmol/L (3-11) Est Creatinine Clear Calc Drug Dose 44.2 ml/min Estimated GFR () 50.5 Estimated GFR (Non- 43.6 BUN/Creatinine Ratio 20.3 (10-20) Lactic Acid Level 1.2 mmol/L (0.4-2.0) Calcium Level 8.9 mg/dl (8.5-10.1) Total Bilirubin 0.5 mg/dl (0.2-1) Direct Bilirubin 0.2 mg/dl (0-0.2) Aspartate Amino Transf (AST/SGOT) 12 U/L (15-37) Alanine Aminotransferase (ALT/SGPT) 16 U/L (12-78) Alkaline Phosphatase 109 U/L (45-117) Troponin I < 0.015 ng/ml (0-0.045) Pro-B-Type Natriuretic Peptide 35945 pg/ml (0-900) Total Protein 7.2 gm/dl (6.4-8.2) Albumin 2.7 gm/dl (3.4-5.0) Lipase 175 U/L (73-393) Urine Color DK YELLOW Urine Appearance CLOUDY (CLEAR) Urine pH 5.0 (4.5-7.5) Urine Specific [place] 1.016 (1.000-1.030) Urine Protein TRACE (NEG) Urine Glucose (UA) NEG (NEG) Urine Ketones 2+ (NEG) Urine Occult Blood NEG (NEG) Urine Nitrite NEG (NEG) Urine Bilirubin NEG (NEG) Urine Urobilinogen NEG (NEG) Urine Leukocyte Esterase MODERATE (NEG) Urine WBC (Auto) >30 /hpf (0-5) Urine RBC (Auto) 0-4 /hpf (0-4) Urine Hyaline Casts (Auto) 5-10 /lpf (0-5) Urine Epithelial Cells (Auto) 0-5 /lpf (0-5) Urine Bacteria (Auto) 4+ (NEG) Bedside Glucose 159 mg/dl (70-90) Assessment and Plan 57 y/o F PMH renal transplant 1998, CAD, T2DM, hypothyroidism, TAMARA, SLE, schizoaffective disorder. Presented to ED with pre-syncopal event, urinary frequency and weakness. Found to be flu+ and have a UTI. Influenza illness - on tamiflu - gentle fluids - note: she cannot tolerate Tylenol. Rec low doses of ibuprofen as antipyretic if necessary. Has yet to have a fever here. UTI - h/o MDR E coli 05/10. - Ertapenem 1000mg Q24H IV day 1 Weakness - out of bed with 2 ppl assisting this morning, bed abebe throughout the rest of the day today 05/11. - PT/OT ordered for tomorrow Post renal transplant (1998) - continue mycophenalate, cyclosporine - continue suppression therapy with SMX/TMP Hypothyroidism - cont Synthroid CAD - cath/stent placement/ systolic CHF - Echo done in 2016 showed Ejection Fraction = 30-35%. * Moderate left ventricular systolic dysfunction. * Inferior akinesis and posterior hypokinesis to akinesis of the left ventricle. * Moderate left ventricular hypertrophy except for relative thinning of the inferior and posterior cha. * Moderate mitral regurgitation. * Mild to moderate aortic stenosis. * Trace tricuspid regurgitation. - cont ASA, Imdur, statin, B sharif. - Nitrostat SL prn T2DM - on ISS TAMARA - apparently non-compliant GERD - TUMS ordered PRN - continue famotidine and -prazole HTN - cont lisinopril, carvedilol HLD - statin as above Neuropathic pain - continue Gabapentin - tramadol - baclofen for face spasms Insomnia - continue restoril DVT: Pt refuses Heparin. SCD's ordered. Code: FULL Dispo Med surg. On obs. Likely DC tomorrow if less weakness. Continued [facility] stay due to: ambulation difficulties Resident Tracking Resident Involvement: Resident Care Provided Care Provided: Adult Hospital Medicine
[2017-05-11] MEDS ORDERED: ASPI1TAB83 PO (18:53)
[2017-05-11] MEDS ORDERED: NTRGSL/4 SL (18:53)
[2017-05-11] MEDS ORDERED: CARV25TA2 PO (18:53)
[2017-05-11] MEDS ORDERED: SULF800T23 PO (18:53)
[2017-05-11] MEDS ORDERED: LIRA18IN SQ (18:53)
[2017-05-11] MEDS ORDERED: MYCO250C26 PO (18:53)
[2017-05-11] MEDS ORDERED: PROC1TAB5 PO (18:53)
[2017-05-11] MEDS ORDERED: ROSU5TAB PO (18:53)
[2017-05-11] MEDS ORDERED: ERGO500011 PO (18:53)
[2017-05-11] MEDS ORDERED: BACL10TA PO (18:53)
[2017-05-11] MEDS ORDERED: DEXL30CA5 PO (18:53)
[2017-05-11] MEDS ORDERED: LUTE20CA PO (18:53)
[2017-05-11] MEDS ORDERED: Glargine SQ (18:53)
[2017-05-11] MEDS ORDERED: CYM/30 PO (18:53)
[2017-05-11] MEDS ORDERED: LISI-729 PO (18:53)
[2017-05-11] MEDS ORDERED: GABA-1220 PO (18:53)
[2017-05-11] MEDS ORDERED: FAMO20TA11 PO (18:53)
[2017-05-11] MEDS ORDERED: TRAM-10 PO (18:53)
[2017-05-11] MEDS ORDERED: CYCL25CA5 PO (18:53)
[2017-05-11] MEDS ORDERED: TEMA15CA4 PO (18:53)
[2017-05-11] MEDS ORDERED: ISOS30TA35 PO (18:53)
[2017-05-11] MEDS ORDERED: NITROGLYCERIN 0.4 MG SL PER TAB CHARGE SL PRN (19:30)
[2017-05-11] MEDS ORDERED: TRAMADOL HCL 50 MG TAB PO PRN (19:45)
[2017-05-11] MEDS ORDERED: TRAMADOL HCL 50 MG TAB PO SCH (20:00)
[2017-05-11] MEDS: TEMAZEPAM 15 MG CAP PO SCH (20:41)
[2017-05-11] MEDS: FAMOTIDINE 20 MG TAB PO SCH (20:41)
[2017-05-11] MEDS: BACLOFEN 10 MG TAB PO SCH (20:42)
[2017-05-11] MEDS: SULFAMETHOXAZOLE/TRIMETHOPRIM DS 800/160MG TAB PO SCH (20:42)
[2017-05-11] MEDS: GABAPENTIN 400 MG CAP PO SCH (20:42)
[2017-05-11] MEDS: MYCOPHENOLATE MOFETIL 250 MG CAP (CELLCEPT) PO SCH (20:42)
[2017-05-11] MEDS: CycloSPORINE (NEORAL) 25 MG CAP PO SCH (20:42)
[2017-05-11] MEDS ORDERED: COUGH DROP (SUGAR FREE) LOZ 24 LOZ/1 BOX LOZ ONE (21:44)
[2017-05-11] MEDS ORDERED: COUGH DROP (SUGAR FREE) LOZ 24 LOZ/1 BOX LOZ PRN (22:00)
[2017-05-11] MEDS: PROCHLORPERAZINE MALEATE 10 MG TAB PO SCH (22:36)
[2017-05-12] VITALS (9 sets, daily range): BP systolic 139–162; BP diastolic 76–87; PULSE 57–68; TEMP 36.6–37; O2SAT 92–98; Ht 162.6 cm; Wt 73.4 kg
[2017-05-12] MEDS: ERTAPENEM IV 1,000 MG in SODIUM CHLORIDE 0.9% 50ML 50 ML IV SCH (03:14)
[2017-05-12] MEDS: PROCHLORPERAZINE MALEATE 10 MG TAB PO SCH ×3 (05:13→18:00)
[2017-05-12] MEDS: HEPARIN SOD 5000 UNIT/0.5 ML CARP SQ SCH ×3 (05:13→22:00)
[2017-05-12] MEDS: INSULIN ASPART 100 UNITS/ML 3 ML PEN SC SCH ×4 (06:30→21:02)
[2017-05-12] MEDS: ALBUT/IPRATROP 3MG/0.5MG NEB 3 ML VIAL INH SCH ×4 (07:07→19:12)
[2017-05-12] MEDS: BACLOFEN 10 MG TAB PO SCH ×3 (07:45→20:01)
[2017-05-12] MEDS: OSELTAMIVIR PHOSPHATE SUSP 30 MG/5 ML UDP PO SCH ×2 (07:45→20:09)
[2017-05-12] MEDS: ASPIRIN 81 MG ECTAB PO SCH (07:46)
[2017-05-12] MEDS: SULFAMETHOXAZOLE/TRIMETHOPRIM DS 800/160MG TAB PO SCH (07:46)
[2017-05-12] MEDS: MYCOPHENOLATE MOFETIL 250 MG CAP (CELLCEPT) PO SCH ×2 (07:47→20:11)
[2017-05-12] MEDS: PANTOprazole SOD 40 MG TAB PO SCH (07:48)
[2017-05-12] MEDS: CycloSPORINE (NEORAL) 25 MG CAP PO SCH ×2 (07:48→20:02)
[2017-05-12] MEDS: FAMOTIDINE 20 MG TAB PO SCH ×2 (07:48→20:04)
[2017-05-12] MEDS: GABAPENTIN 400 MG CAP PO SCH ×3 (07:48→20:00)
[2017-05-12] MEDS: DULOXETINE (CYMBALTA) 30 MG CAP PO SCH (07:49)
[2017-05-12] MEDS: ROSUVASTATIN CALCIUM 10 MG TAB PO SCH (07:49)
[2017-05-12] MEDS: LISINOPRIL 5 MG TAB PO SCH (07:50)
[2017-05-12] MEDS: CARVEDILOL 25 MG TAB PO SCH (07:50)
[2017-05-12] MEDS: ISOSORBIDE MONONITRATE 30 MG TABCR PO SCH (07:51)
[2017-05-12] MEDS ORDERED: NON-FORMULARY MEDICATION (Lutein 1 CAP) PO SCH (08:00)
[2017-05-12 08:13] LABS: CALCIUM 8.7 mg/dl (8.5-10.1); CREATININE 1.24 mg/dl (0.60-1.20); PHOSPHORUS 4.5 mg/dl (2.5-4.9); POTASSIUM 4.4 mmol/L (3.5-5.1)
--- NOTE | 2017-05-12 10:35 | Hospitalist Progress Note ---
Hospitalist Progress Note Date of Service May 12, 2017. (Norah Coy ., HENRY) Subjective Pt evaluation today including: conversation w/ patient, physical exam, chart review, lab review, review of inpatient medication list Voiding: no voiding problems Ms. Iverson is ill appearing, awake and talking but won't open her eyes. She is able to take in food and drink today. Her chest hurts when she coughs but otherwise she has no chest pain. She is somewhat sob but O2 sats are 94% on RA ROS Constitutional: no chills, aches, sweats or fever Respiratory: see HPI Cardiac: see HPI GI: no abdominal pain, nausea, vomiting, diarrhea or constipation : no dysuria or hesitancy Extremities: no joint pain or weakness Skin: no rash All other systems reviewed and negative (Norah Coy .HENRY) Medications Medications (Trade) Dose Ordered Sig/Suyapa Route Start Time Stop Time Status Last Admin Dose Admin Albuterol/ Ipratropium (Duoneb) 3 ml QIDR INH 05/11/17 12:00 06/10/17 11:59 05/12/17 07:07 3 ML Aspirin (Ecotrin Tab) 81 mg DAILY PO 05/12/17 08:00 06/11/17 07:59 05/12/17 07:46 81 MG Baclofen (Lioresal Tab) 10 mg TID PO 05/11/17 20:00 06/10/17 19:59 05/12/17 07:45 10 MG Cyclosporine (Neoral Cap) 50 mg BID PO 05/11/17 20:00 06/10/17 19:59 05/12/17 07:48 50 MG Duloxetine HCl (Cymbalta Cap) 30 mg DAILY PO 05/12/17 08:00 06/11/17 07:59 05/12/17 07:49 30 MG Famotidine (Pepcid Tab) 20 mg BID PO 05/11/17 20:00 06/10/17 19:59 05/12/17 07:48 20 MG Gabapentin (Neurontin Cap) 400 mg TID PO 05/11/17 20:00 06/10/17 19:59 05/12/17 07:48 400 MG Isosorbide Mononitrate (Imdur Ext Rel Tab) 30 mg QAM PO 05/12/17 08:00 06/11/17 07:59 05/12/17 07:51 30 MG Lisinopril (Zestril Tab) 5 mg DAILY PO 05/12/17 08:00 06/11/17 07:59 05/12/17 07:50 5 MG Mycophenolate Mofetil (Cellcept Cap) 250 mg BID PO 05/11/17 20:00 06/10/17 19:59 05/12/17 07:47 250 MG Rosuvastatin Calcium (Crestor Tab) 5 mg DAILY PO 05/12/17 08:00 06/11/17 07:59 05/12/17 07:49 5 MG Trimethoprim/ Sulfamethoxazole (Septra Ds 800/ 160MG Tab) 1 tab BIDM PO 05/11/17 20:00 06/10/17 19:59 05/12/17 07:46 1 TAB Temazepam (Restoril Cap) 15 mg HS PO 05/11/17 21:00 06/10/17 20:59 05/11/17 20:41 15 MG Pantoprazole Sodium (Protonix Tab) 40 mg QAM PO 05/12/17 08:00 06/11/17 07:59 05/12/17 07:48 40 MG Menthol (Nice Vivian) 24 vivian STK-MED ONCE VIVIAN 05/11/17 21:44 05/11/17 21:45 DC 05/11/17 22:36 24 VIVIAN (Norah Coy, HENRY) Objective Vital Signs Date Time Temp Pulse Resp B/P (MAP) Pulse Ox O2 Delivery O2 Flow Rate FiO2 05/12/17 08:00 94 Room Air 05/12/17 07:18 36.9 59 18 162/82 (108) 94 Room Air 05/12/17 07:07 58 20 92 Room Air 05/12/17 00:05 Room Air 05/11/17 22:50 37.3 64 18 154/80 (104) 95 Room Air 05/11/17 20:00 Room Air 05/11/17 19:31 67 20 97 Room Air 05/11/17 16:04 37.2 61 22 145/81 (102) 95 Room Air 05/11/17 16:00 96 Room Air 05/11/17 14:39 59 22 96 Room Air 2/18/18 11:28 71 24 96 Room Air (Norah Coy CRNP) Physical Exam Notes: General: no distress Eyes: normal inspection, PERLL Respiratory: chest non tender, clear to auscultation, bilateral expiratory wheezes, no accessory muscle use Cardiac: regular rate and rhythm, no rub or gallop, no murmur, no edema, no jvd GI/: active bowel sounds, no abd pain or tenderness, soft, non distended Extremities: normal range of motion, normal strength, non tender Neuro/Psych: alert and oriented x 3, normal mood and affect Skin: normal color, dry (Norah Coy CRNP) Laboratory Results Last 24 Hours Test 05/11/17 11:53 05/11/17 16:33 05/11/17 20:34 05/12/17 07:18 Bedside Glucose 159 mg/dl 166 mg/dl 269 mg/dl Sodium Level 139 mmol/L Potassium Level 4.4 mmol/L Chloride Level 107 mmol/L Carbon Dioxide Level 22 mmol/L Anion Gap 11.0 mmol/L Blood Urea Nitrogen 24 mg/dl Creatinine 1.24 mg/dl Est Creatinine Clear Calc Drug Dose 48.6 ml/min Estimated GFR () 55.4 Estimated GFR (Non- 47.8 BUN/Creatinine Ratio 19.2 Random Glucose 161 mg/dl Calcium Level 8.7 mg/dl Phosphorus Level 4.5 mg/dl Magnesium Level 1.8 mg/dl Test 05/12/17 07:36 Bedside Glucose 156 mg/dl (Norah Coy CRNP) Assessment and Plan 57 y/o F PMH renal transplant 1998, CAD, T2DM, hypothyroidism, TAMARA, SLE, schizoaffective disorder. Presented to ED with pre-syncopal event, urinary frequency and weakness. Found to be flu+ and have a UTI. Influenza illness - on tamiflu, duonebs - fluids dc'd - patient states today she is taking po - note: she cannot tolerate Tylenol. Rec low doses of ibuprofen as antipyretic if necessary. Has yet to have a fever here. UTI - h/o MDR E coli 05/10 - UC here shows pansensitive E.coli - Ertapenem changed to po Cipro as patient is able to tolerate po today Weakness - 2 person assist so far this hospital stay - will have PT/OT evaluate Post renal transplant (1998) - continue mycophenalate, cyclosporine - hold suppression therapy with SMX/TMP Hypothyroidism - cont Synthroid CAD - cath/stent placement/ systolic CHF - Echo done in 2017 showed Ejection Fraction = 30-35%. * Moderate left ventricular systolic dysfunction. * Inferior akinesis and posterior hypokinesis to akinesis of the left ventricle. * Moderate left ventricular hypertrophy except for relative thinning of the inferior and posterior cha. * Moderate mitral regurgitation. * Mild to moderate aortic stenosis. * Trace tricuspid regurgitation. - cont ASA, Imdur, statin, B sharif. - Nitrostat SL prn T2DM - on ISS - bsgs stable TAMARA - apparently non-compliant GERD - TUMS ordered PRN - continue famotidine and ppi HTN - cont lisinopril, carvedilol HLD - statin as above Neuropathic pain - continue Gabapentin - tramadol - baclofen for face spasms Insomnia - continue restoril DVT: Pt refuses Heparin. SCD's ordered. Code: FULL (Norah Coy ., HENRY) REAL ESTATE ACCOUNT EXECUTIVE Physician Supervision Note: I interviewed and examined the patient. Discussed with Norah Coy NP and agree with findings and plan as documented in the note. Any exceptions or clarifications are listed here: None Patient feels she did well with physical therapy and wants to go home however her physical therapy evaluation did not feel she is safe to go home at this time [facility] she does have influenza acute infection and a pansensitive E. coli UTI. We will continue to treat both of these with reassessment of her physical functioning in 1 day Patient's vital signs temp 36 9 pulse 59 respiration 18 BP 162/82 Her heart is regular without murmurs her lungs were good with good air movement no wheezes or focalize she does cough during my examination is nonproductive her abdomen is normoactive bowel sounds and soft Influenza illness tamiflu, duonebs UTI is pansensitive despite a history of MDR E coli 05/10 Ertapenem changed to po Cipro as patient is able to tolerate po 05/12 Weakness acute illness- 2 person assist so far this hospital stay - PT/OT will continue to follow and reassessed Post renal transplant (1998) mycophenalate, cyclosporine - hold suppression therapy with SMX/TMP welcome currently on antibiotics Hypothyroidism appears clinically stable on Synthroid CAD - cath/stent placement/ systolic CHF patient has a history of chronic systolic heart failure EF 30-35% ASA, Imdur, statin, B sharif. - Nitrostat SL prn T2DM this is been poorly controlled we will add basal insulin to sliding scale and follow BSEs Patient has obstructive sleep apnea but is noncompliant with any type of front end assistant device HTN lisinopril, carvedilol HLD- statin as above Neuropathic pain is in control with Neurontin and as needed baclofen for facial muscle spasms DVT: Pt refuses Heparin. SCD's ordered. Code: FULL Documented By: Tray Vaca (Tray Vaca M.D.)
[2017-05-12] MEDS: CIPROFLOXACIN 500 MG TAB PO SCH (20:01)
[2017-05-12] MEDS ORDERED: INSULIN GLARGINE SOLOSTAR 100 UNITS/ML 3 ML PEN SC SCH (21:00)
[2017-05-12] MEDS: TEMAZEPAM 15 MG CAP PO SCH (21:00)
[2017-05-12] MEDS: INSULIN GLARGINE SOLOSTAR 100 UNITS/ML 3 ML PEN SC SCH (21:03)
[2017-05-13] VITALS (7 sets, daily range): BP systolic 123–144; BP diastolic 75–85; PULSE 53–79; TEMP 36.3–36.7; O2SAT 95–100
[2017-05-13] MEDS: HEPARIN SOD 5000 UNIT/0.5 ML CARP SQ SCH ×3 (05:29→20:57)
[2017-05-13] MEDS: PROCHLORPERAZINE MALEATE 10 MG TAB PO SCH ×5 (05:34→23:53)
[2017-05-13] MEDS: ALBUT/IPRATROP 3MG/0.5MG NEB 3 ML VIAL INH SCH ×4 (07:14→19:31)
[2017-05-13] MEDS: CARVEDILOL 25 MG TAB PO SCH (08:00)
[2017-05-13] MEDS: OSELTAMIVIR PHOSPHATE SUSP 30 MG/5 ML UDP PO SCH ×2 (08:52→21:24)
[2017-05-13] MEDS: ROSUVASTATIN CALCIUM 10 MG TAB PO SCH (08:52)
[2017-05-13] MEDS: GABAPENTIN 400 MG CAP PO SCH ×3 (08:53→21:12)
[2017-05-13] MEDS: MYCOPHENOLATE MOFETIL 250 MG CAP (CELLCEPT) PO SCH ×2 (08:53→21:14)
[2017-05-13] MEDS: CIPROFLOXACIN 500 MG TAB PO SCH ×2 (08:53→21:13)
[2017-05-13] MEDS: CycloSPORINE (NEORAL) 25 MG CAP PO SCH ×2 (08:54→21:13)
[2017-05-13] MEDS: ASPIRIN 81 MG ECTAB PO SCH (08:55)
[2017-05-13] MEDS: FAMOTIDINE 20 MG TAB PO SCH ×2 (08:55→21:14)
[2017-05-13] MEDS: BACLOFEN 10 MG TAB PO SCH ×3 (08:55→21:15)
[2017-05-13] MEDS: PANTOprazole SOD 40 MG TAB PO SCH (08:56)
[2017-05-13] MEDS: DULOXETINE (CYMBALTA) 30 MG CAP PO SCH (08:56)
[2017-05-13] MEDS: LISINOPRIL 5 MG TAB PO SCH (08:56)
[2017-05-13] MEDS: ISOSORBIDE MONONITRATE 30 MG TABCR PO SCH (08:56)
[2017-05-13] MEDS: INSULIN ASPART 100 UNITS/ML 3 ML PEN SC SCH ×4 (08:59→20:55)
--- NOTE | 2017-05-13 17:16 | Progress Note ---
Subjective Date of Service: May 13, 2017. Subjective this pt feels 50% improved from the day before, she is set on going home and lives independently, she has mild cough and is participating in physical therapy Problem List Medical Problems: (1) Diarrhea Status: Acute (2) Generalized weakness Status: Acute (3) Immunosuppression Status: Acute (4) Influenza A Status: Acute (5) Lower abdominal pain Status: Acute (6) Mood disorder Status: Acute (7) Renal insufficiency Status: Acute (8) Sepsis Status: Acute (9) Thrombocytopenia Status: Acute (10) Urinary tract infection Status: Acute Review of Systems Constitutional: + weakness, + fatigue, No fever, No chills Respiratory: + cough, No sputum, No shortness of breath Cardiac: No chest pain, No edema Abdomen: No pain, No nausea, No vomiting, No diarrhea Psychiatric: No depression symptoms, No anxiety Objective Vital Signs Date Time Temp Pulse Resp B/P (MAP) Pulse Ox O2 Delivery O2 Flow Rate FiO2 05/13/17 15:41 69 16 95 Room Air 05/13/17 15:11 36.7 79 16 123/80 (94) 97 Room Air 05/13/17 11:11 55 14 96 Room Air 05/13/17 09:45 Room Air 05/13/17 08:21 Room Air 05/13/17 07:26 36.3 54 20 144/85 (104) 100 Room Air 05/13/17 07:16 77 16 100 Room Air 05/13/17 00:00 Room Air 05/12/17 23:14 37.0 65 18 153/87 (109) 95 Room Air 05/12/17 19:12 68 18 98 Room Air 05/12/17 19:00 Room Air Physical Exam General Appearance: WD/WN, + mild distress Eyes: normal inspection, sclerae normal Neck: supple, no JVD Respiratory/Chest: chest non-tender, lungs clear, normal breath sounds Cardiovascular: regular rate, rhythm, no murmur Abdomen: normal bowel sounds, non tender, soft Extremities: no pedal edema, no calf tenderness Neurologic/Psychiatric: alert, oriented x 3 Laboratory Results Last 24 Hours Test 05/12/17 17:12 05/12/17 20:11 05/13/17 02:17 05/13/17 07:50 Bedside Glucose 219 mg/dl 190 mg/dl 195 mg/dl 168 mg/dl Test 05/13/17 11:34 05/13/17 16:28 Bedside Glucose 241 mg/dl 142 mg/dl Assessment and Plan 57 F who looks much older than age with acute influenza Influenza illnessimproving with tamiflu, duonebs UTI is pansensitive despite a history of MDR E coli 05/10 Ertapenem changed to po Cipro as patient is able to tolerate po 05/12 Weakness acute illness- 2 person assist so far this hospital stay - PT/OT will continue to follow and reassessed Post renal transplant (1998) mycophenalate, cyclosporine - hold antibiotic suppression therapy with SMX/TMP welcome currently on antibiotics Hypothyroidism remains stable on Synthroid CAD - no chest pain symptoms, cath/stent placement/ systolic CHF patient has a history of chronic systolic heart failure EF 30-35% ASA, Imdur, statin, B sharif. - Nitrostat SL prn T2DM this is been poorly controlled added basal insulin to sliding scale with some improvement and continue to follow BSEs Patient has obstructive sleep apnea but is noncompliant with any type of assistant program manager device HTN lisinopril, carvedilol HLD- statin as above Neuropathic pain is in control with Neurontin and as needed baclofen for facial muscle spasms DVT: Pt refuses Heparin. SCD's ordered. Code: FULL PT/OT continues with need to asses safety to return to home Continued [facility] stay due to: ambulation difficulties
[2017-05-13] MEDS: INSULIN GLARGINE SOLOSTAR 100 UNITS/ML 3 ML PEN SC SCH (20:56)
[2017-05-13] MEDS: TEMAZEPAM 15 MG CAP PO SCH (21:21)
[2017-05-14] VITALS (8 sets, daily range): BP systolic 121–158; BP diastolic 74–82; PULSE 52–72; TEMP 36.3–36.8; O2SAT 94–100
[2017-05-14] MEDS: HEPARIN SOD 5000 UNIT/0.5 ML CARP SQ SCH ×2 (06:00→12:55)
[2017-05-14] MEDS: PROCHLORPERAZINE MALEATE 10 MG TAB PO SCH ×3 (06:09→18:04)
[2017-05-14] MEDS: ALBUT/IPRATROP 3MG/0.5MG NEB 3 ML VIAL INH SCH ×3 (07:29→15:31)
[2017-05-14] MEDS: FAMOTIDINE 20 MG TAB PO SCH (07:54)
[2017-05-14] MEDS: CycloSPORINE (NEORAL) 25 MG CAP PO SCH (07:54)
[2017-05-14] MEDS: ASPIRIN 81 MG ECTAB PO SCH (07:54)
[2017-05-14] MEDS: CIPROFLOXACIN 500 MG TAB PO SCH (07:54)
[2017-05-14] MEDS: ROSUVASTATIN CALCIUM 10 MG TAB PO SCH (07:54)
[2017-05-14] MEDS: BACLOFEN 10 MG TAB PO SCH ×2 (07:54→12:55)
[2017-05-14] MEDS: CARVEDILOL 25 MG TAB PO SCH (07:54)
[2017-05-14] MEDS: MYCOPHENOLATE MOFETIL 250 MG CAP (CELLCEPT) PO SCH (07:54)
[2017-05-14] MEDS: DULOXETINE (CYMBALTA) 30 MG CAP PO SCH (07:54)
[2017-05-14] MEDS: GABAPENTIN 400 MG CAP PO SCH ×2 (07:55→12:55)
[2017-05-14] MEDS: OSELTAMIVIR PHOSPHATE SUSP 30 MG/5 ML UDP PO SCH (07:55)
[2017-05-14] MEDS: LISINOPRIL 5 MG TAB PO SCH (07:55)
[2017-05-14] MEDS: PANTOprazole SOD 40 MG TAB PO SCH (07:55)
[2017-05-14] MEDS: ISOSORBIDE MONONITRATE 30 MG TABCR PO SCH (07:55)
[2017-05-14 08:19] LABS: HEMATOCRIT 36.3 % (37-47); HEMOGLOBIN 11.8 g/dL (12.0-16.0); MEAN CELL VOLUME 89.6 fL (80-100); MEAN CORPUSCULAR HEMOGLOBIN 29.1 pg (25-34); MEAN CORPUSCULAR HGB CONC 32.5 g/dl (32-36); MEAN PLATELET VOLUME 9.6 fL (7.4-10.4); PLATELET COUNT 227 K/uL (130-400); RED CELL DISTRIBUTION WIDTH CV 14.3 % (11.5-14.5); RED CELL DISTRIBUTION WIDTH SD 47.4 fL (36.4-46.3); WHITE BLOOD COUNT 3.86 K/uL (4.8-10.8)
[2017-05-14] MEDS: INSULIN ASPART 100 UNITS/ML 3 ML PEN SC SCH ×3 (08:42→18:06)
[2017-05-14 09:11] LABS: CREATININE 1.53 mg/dl (0.60-1.20); POTASSIUM 5.1 mmol/L (3.5-5.1)
[2017-05-14] MEDS ORDERED: SODIUM CHLORIDE 0.9% 1000ML 1,000 ML IV SCH (11:00)
[2017-05-14] MEDS ORDERED: TMFUDL30 PO (12:22)
[2017-05-14] MEDS ORDERED: CPR500 PO (12:22)
--- NOTE | 2017-05-14 12:29 | Discharge Summary ---
Discharge Summary Date of Service May 14, 2017. Discharge Summary Admission Date: May 11, 2017 at 00:46 Discharge Date: May 14, 2017 Discharge Disposition: Home Principal Diagnosis: Influenza Problems/Secondary Diagnoses: UTI, Weakness, Post renal transplant (1998), Hypothyroidism, CAD - cath/stent placement/ systolic CHF, T2DM, TAMARA, GERD, HTN, HLD, Neuropathy, Insomnia Immunizations: Have You Had Influenza Vaccine: Yes History of Tetanus Vaccine?: Unknown History of Pneumococcal: Yes Pneumococcal Date: Jun 23, 2001 History of Hepatitis B Vaccine: Unknown Procedures: CHEST ONE VIEW PORTABLE CLINICAL HISTORY: Abdominal pain. COMPARISON STUDY: Chest radiograph February 27, 2017. FINDINGS: No lucency is identified under the hemidiaphragms to suggest pneumoperitoneum on this exam. Borderline cardiomegaly is noted. There is no evidence for pulmonary edema. Lung volumes are mildly diminished. There is no consolidation. Old left-sided rib fractures are identified. IMPRESSION: No acute cardiopulmonary findings. Medication Reconciliation New Medications: Ciprofloxacin (Ciprofloxacin HCl) 500 Mg Tab 500 MG PO BID for 4 Days, #9 TAB Oseltamivir Phosphate (Tamiflu) 6 Mg/Ml Nurys 30 MG PO BID for 1 Day, #1 DOSE Continued Medications: Aspirin (Aspirin) 81 Mg Tab 1 TAB PO DAILY for 30 Days, #30 TAB 3 Refills Baclofen (Lioresal) 10 Mg Tab 10 MG PO TID, TAB Carvedilol (Coreg) 25 Mg Tab 25 MG PO DAILY, TAB Cyclosporine (Neoral) 25 Mg Cap 50 MG PO BID, CAP Dexlansoprazole (Dexilant) 30 Mg Cap 30 MG PO DAILY Duloxetine HCl (Cymbalta) 30 Mg Cap 1 CAP PO DAILY for 30 Days, #30 CAP 5 Refills Ergocalciferol (Vitamin D 37209 Unit) 50,000 Unit Cap 1 CAP PO WK for 28 Days, #4 CAP 2 Refills Famotidine (Pepcid) 20 Mg Tab 20 MG PO BID, TAB Gabapentin (Neurontin) 400 Mg Cap 1 CAP PO TID for 30 Days, #90 CAP 2 Refills Isosorbide Mononitrate Ext Rel (Imdur Ext Rel) 30 Mg Tabcr 1 TAB PO QAM, TAB Liraglutide (Victoza) 18 Mg/3 Ml Inj 1.8 MG SQ DAILY Lisinopril (Zestril) 5 Mg Tab 5 MG PO DAILY, TAB Lutein (Lutein) 20 Mg Cap 1 CAP PO DAILY Mycophenolate Mofetil (Cellcept) 250 Mg Cap 1 CAP PO BID for 90 Days, #180 CAP 3 Refills Nitroglycerin (Nitrostat) 0.4 Mg Tab 1 TAB SL UD PRN for Chest Pain, #100 TAB 3 Refills Prochlorperazine Maleate (Compazine) 10 Mg Tab 1 TAB PO Q6 for 7 Days, #30 TAB 3 Refills Rosuvastatin Calcium (Crestor) 5 Mg Tab 1 TAB PO DAILY for 30 Days, #30 TAB 5 Refills Sulfa/Trimethoprim (Bactrim Ds 800MG/160MG) Tab 1 TAB PO BID, #6 TAB Temazepam (Restoril) 15 Mg Cap 15 MG PO HS, CAP Tramadol (Ultram) 50 Mg Tab 50 MG PO Q4H, TAB [Glargine] () 10 SQ DAILY Discharge Exam ROS Constitutional: no chills, aches, sweats or fever Respiratory: no sob,cough, sputum, or wheezing Cardiac: no chest pain, palpitations, edema, orthopnea or lightheadedness GI: no abdominal pain, nausea, vomiting, diarrhea or constipation : no dysuria or hesitancy Extremities: no joint pain or weakness Skin: no rash All other systems reviewed and negative General: no distress Eyes: normal inspection, PERLL Respiratory: chest non tender, clear to auscultation, normal breath sounds, no respiratory distress, no accessory muscle use Cardiac: regular rate and rhythm, no rub or gallop, no murmur, no edema, no jvd GI/: active bowel sounds, no abd pain or tenderness, soft, non distended Extremities: normal range of motion, normal strength, non tender Neuro/Psych: alert and oriented x 3, normal mood and affect Skin: normal color, dry Hospital Course 57 y/o F PMH renal transplant 1998, CAD, T2DM, hypothyroidism, TAMARA, SLE, schizoaffective disorder. Presented to ED with pre-syncopal event, urinary frequency and weakness. Found to be flu+ and have a UTI. Influenza illness - Flu A - on tamiflu, duonebs - IVF - afebrile this admission UTI - h/o MDR E coli 05/10 - UC here shows pansensitive E.coli - Ertapenem changed to po Cipro as patient is able to tolerate po today Elevated Creatinine, CKD III - patient Creatinine elevated at 1.5 from 1.2 - IVF today until DC this evening at 125/hr and recheck prp tomorrow outpatient Weakness - 2 person assist so far this hospital stay -PT/OT angelina recommended rehab however patient was adamant about going home. I did discuss PT recommendation with patient and she verbalized understanding but refused. Discussed patient's mobility with nursing today and they felt that she was much improved from initial PT evaluation, able to ambulate room with walker on her own. Post renal transplant (1998) - continued mycophenalate, cyclosporine - held suppression therapy with SMX/TMP while taking cipro - can restart after cipro regimen Hypothyroidism - cont Synthroid CAD - cath/stent placement/ systolic CHF - Echo done in 2016 showed Ejection Fraction = 30-35%. * Moderate left ventricular systolic dysfunction. * Inferior akinesis and posterior hypokinesis to akinesis of the left ventricle. * Moderate left ventricular hypertrophy except for relative thinning of the inferior and posterior cha. * Moderate mitral regurgitation. * Mild to moderate aortic stenosis. * Trace tricuspid regurgitation. - cont ASA, Imdur, statin, B sharif. - Nitrostat SL prn T2DM - on ISS - bsgs stable - restart victoza for home TAMARA - apparently non-compliant GERD - TUMS ordered PRN - continue famotidine and ppi HTN - cont lisinopril, carvedilol HLD - statin as above Neuropathic pain - continue Gabapentin - tramadol - baclofen for face spasms Insomnia - continue restoril ASSISTANT CORPORATE SECRETARY Physician Supervision Note: I interviewed and examined the patient. Discussed with Norah Coy NP and agree with findings and plan as documented in the note. Any exceptions or clarifications are listed here: None Patient was seen prior to discharge she was in her usual state she is doing well and bleeding in the hallways she still feels slightly fatigued from her current influenza infection otherwise has no complaints or problems patient assures me she will follow-up with her primary care provider within 1 week we did discuss her renal function she is a slight decline in her creatinine at time of discharge will recommend that she continue good hydration at home and see her english drawer also a short time course Her vital signs are stable her heart is regular her lungs are with occasional coughing and mild rhonchi which clear easily Influenza infection with the fatigue improving with treatment of Tamiflu completing outpatient course with attention paid to her chronic kidney disease with outpatient follow-up Urinary tract infection present on admission given the fact that she is immunosuppressed we will continue ciprofloxacin therapy as sensitivities do show E. coli is sensitive to this once again recommending close outpatient follow-up and improved hydration is could have had an impact on her initial level of weakness and functional decline she is improved greatly by therapy and nursing counts Documented By: Tray Vaca Total Time Spent: Greater than 30 minutes This includes examination of the patient, discharge planning, medication reconciliation, and communication with other providers. Discharge Instructions Please refer to the electronic Patient Visit Report (Discharge Instructions) for additional information. Follow-Up Sandra Vásquez in 1 week Additional Copies To Mikala Vásquez
--- NOTE | 2017-05-14 12:32 | Discharge Instructions ---
Discharge Instructions Date of Service May 14, 2017. Admission Reason for Admission: Generalized Weakness, Influenza A Discharge Discharge Diagnosis / Problem: Influenza A Discharge Goals Goal(s): Improve disease control Activity Recommendations Activity Limitations: resume your previous activity Lifting Limitations: gradually increase as tolerated . Instructions / Follow-Up Instructions / Follow-Up Please have your blood work drawn tomorrow, your results will go to your primary care provider Please follow up with your primary care provider within about a week Current Hospital Diet Patient's current hospital diet: AHA Diet (Heart Healthy), Diabetes Type 2 Diet Discharge Diet Recommended Diet: Diabetes Type 2 Diet Procedures Procedures Performed: Chest X ray Pending Studies Studies pending at discharge: no Medical Emergencies . Who to Call and When: Medical Emergencies: If at any time you feel your situation is an emergency, please call 911 immediately. . Non-Emergent Contact Non-Emergency issues call your: Primary Care Provider Call Non-Emergent contact if: you have a fever, you have any medication questions . . "Provider Documentation" section prepared by Norah Coy. . VTE Core Measure Inpt VTE Proph given/why not?: Unfractionated heparin SQ
== END 2017-05-14 19:10 | disposition home or self-care (01) ==
LOC: EDBD 20:27 → C.EDB 20:29 → C.4E 05-11 00:46 → ENRESERV 05-11 01:04
PROVIDERS: ADMIT Internal Medicine; ATTEND Internal Medicine
DX: J11.1 Influenza due to unidentified influenza virus with other respiratory manifestations (principal); N39.0 Urinary tract infection, site not specified; M62.81 Muscle weakness (generalized); I25.10 Atherosclerotic heart disease of native coronary artery without angina pectoris; Z94.0 Kidney transplant status; I10 Essential (primary) hypertension; F41.9 Anxiety disorder, unspecified; F90.9 Attention-deficit hyperactivity disorder, unspecified type; E03.9 Hypothyroidism, unspecified; E11.9 Type 2 diabetes mellitus without complications; G47.33 Obstructive sleep apnea (adult) (pediatric); K21.9 Gastro-esophageal reflux disease without esophagitis; E21.3 Hyperparathyroidism, unspecified; E89.2 Postprocedural hypoparathyroidism; F33.0 Major depressive disorder, recurrent, mild; G47.00 Insomnia, unspecified; M81.0 Age-related osteoporosis without current pathological fracture; G62.9 Polyneuropathy, unspecified; F25.9 Schizoaffective disorder, unspecified; M32.9 Systemic lupus erythematosus, unspecified; Z87.440 Personal history of urinary (tract) infections; Z95.5 Presence of coronary angioplasty implant and graft; Z83.3 Family history of diabetes mellitus; Z82.49 Family history of ischemic heart disease and other diseases of the circulatory system; Z81.8 Family history of other mental and behavioral disorders; Z82.61 Family history of arthritis; Z80.1 Family history of malignant neoplasm of trachea, bronchus and lung; Z88.0 Allergy status to penicillin; Z88.6 Allergy status to analgesic agent; Z88.1 Allergy status to other antibiotic agents; Z88.8 Allergy status to other drugs, medicaments and biological substances; Z79.82 Long term (current) use of aspirin

== ENCOUNTER → 2017-05-15 | Outpatient (CLI) | payer OTHER ==
[~2017-05-15] MED LIST changes: -AMLO2.5T PO; +ASPI1TAB83 PO; -ASPI81TA28 PO; +AZITTAB PO; +BACL10TA PO; -CARV12.52 PO; +CARV25TA2 PO; +CEFD300C2 PO; -CHOL1CAP95 PO; +CPR500 PO; +CYM/30 PO; +ERGO500011 PO; +ERTA1INJ IV; +FAMO20TA11 PO; -FAMO20TA9 PO; -FLNIN/ NAE; +GABA-1220 PO; +Glargine SQ; +LISI-729 PO; -LUTE15CA PO; +LUTE20CA PO; +MULT-506 PO; -NITR0.4S UT; +NTRGSL/4 SL; -ONDA4TAB46 PO; +PROC1TAB5 PO; +ROSU5TAB PO; +SULF800T23 PO; +TEMA15CA4 PO; +TMFUDL30 PO
[2017-05-15 15:11] LABS: BLOOD UREA NITROGEN 31 mg/dl (7-18); CALCIUM 9.1 mg/dl (8.5-10.1); CARBON DIOXIDE 22 mmol/L (21-32); CREATININE 1.65 mg/dl (0.60-1.20); GLUCOSE 204 mg/dl (70-99); SODIUM 138 mmol/L (136-145)
== END | disposition home or self-care (01) ==
LOC: C.LAB1850 13:48
PROVIDERS: ATTEND Nurse Practitioner Family
DX: N17.9 Acute kidney failure, unspecified (principal)

== ENCOUNTER 2017-05-24 12:33 | Inpatient (IN) | payer OTHER ==
[~2017-05-24] VITALS: Ht 162.6 cm; Wt 78.3 kg
[~2017-05-24 12:33] MED LIST changes: -AZITTAB PO; -CEFD300C2 PO; -ERTA1INJ IV; -INSDGIPEN SC; -MULT-190 PO; -MULT-506 PO
[2017-05-24] MEDS ORDERED: SODIUM CHLORIDE 0.9% 1000ML 1,000 ML IV STA (12:54)
[2017-05-24 13:50] LABS: BASO % 0.4 %; BASO ABS # 0.04 K/uL (0-0.2); EOS % 0.4 %; EOS ABS # 0.04 K/uL (0-0.5); HEMATOCRIT 33.5 % (37-47); HEMOGLOBIN 11.3 g/dL (12.0-16.0); IG# 0.04 K/uL (0.00-0.02); LYMPH % 15.7 %; LYMPH ABS # 1.49 K/uL (1.2-3.4); MEAN CELL VOLUME 88.6 fL (80-100); MEAN CORPUSCULAR HEMOGLOBIN 29.9 pg (25-34); MEAN CORPUSCULAR HGB CONC 33.7 g/dl (32-36); MONO % 10.1 %; MONO ABS # 0.96 K/uL (0.11-0.59); PLATELET COUNT 231 K/uL (130-400); RED CELL DISTRIBUTION WIDTH CV 14.9 % (11.5-14.5); RED CELL DISTRIBUTION WIDTH SD 48.3 fL (36.4-46.3); WHITE BLOOD COUNT 9.47 K/uL (4.8-10.8)
--- NOTE | 2017-05-24 13:55 | EMERGENCY ROOM VISIT NOTE ---
History Report prepared by Savi: Shikha Sewell Under the Supervision of: Dr. Nico Saab D.O. First contact with patient: 12:46 Chief Complaint: WEAKNESS Stated Complaint: WEAKNESS Nursing Triage Summary: Pt brought BLS from home for c/o generalized weakness, pt was recently admitted for UTI. Pt was found on floor at home, states that she did not fall, but was too weak so crawled to kitchen. Pt states that she has been taking antibiotics as prescribed. Pt arrives alert and oriented x 4, denies urinary sx, chest pain , sob, n/v, abdominal pain, fever/chills. Pt has hx of DM, BSG for EMS was 194. History of Present Illness The patient is a 57 year old female who presents to the Emergency Room with complaints of constant generalized weakness beginning this morning. The patient states when she got up this morning to get a glass of water her knee gave out and she fell to her knee. She denies any injuries or pain from the fall. When EMS arrived they found the patient on the floor. The patient states she was unable to hold herself up when EMS helped her get up from the floor. She notes a decreased appetite. The patient denies any urinary symptoms, chest pain, shortness of breath, nausea, abdominal pain, fever or chills. The patient was recently admitted for a UTI. She reports she has been taking her antibiotics as prescribed. She states she took all of her medications this morning except her insulin. Source of History: patient Onset: this morning Position: other (generalized) Quality: other (weakness) Timing: constant Associated Symptoms: + weakness, No fevers, No chills, No chest pain, No SOB , No nausea, No abdominal pain, No urinary symptoms Review of Systems See HPI for pertinent positives & negatives. A total of 10 systems reviewed and were otherwise negative. Past Medical & Surgical Medical Problems: (1) Anxiety (2) Attention deficit hyperactivity disorder (3) Benign hypertension (4) Borderline personality disorder (5) Cerebrovascular disease (6) Coronary artery disease (7) Diabetes mellitus type 2 (8) Gastroesophageal reflux disease (9) Hyperparathyroidism (10) Kidney transplant status, cadaveric (11) Major depression, recurrent (12) MDRO (multiple drug resistant organisms) resistance (13) Osteoporosis (14) Schizoaffective disorder (15) Sleep apnea (16) Systemic lupus erythematosus (17) Urinary tract infection due to extended-spectrum beta lactamase (ESBL) producing Escherichia coli Surgical Problems: (1) Status post coronary artery stent placement (2) Status post kidney transplant (3) Status post parathyroidectomy Family History FH: dementia MOTHER FH: diabetes mellitus SISTER GRANDMOTHER FH: heart disease FATHER MOTHER FH: lung cancer FATHER FH: rheumatoid arthritis SISTER FHx: heart disease Social History Smoking Status: Never Smoker Alcohol Use: none Drug Use: none Marital Status: single Housing Status: lives alone Occupation Status: disabled Current/Historical Medications Scheduled Aspirin (Aspirin), 1 TAB PO DAILY Azithromycin (Zithromax Z-Anthony), 1 PKT PO UD Baclofen (Lioresal), 10 MG PO TID Carvedilol (Coreg), 25 MG PO DAILY Cefdinir (Omnicef), 600 MG PO DAILY Cyclosporine (Neoral), 50 MG PO BID Dexlansoprazole (Dexilant), 30 MG PO DAILY Duloxetine HCl (Cymbalta), 1 CAP PO DAILY Ergocalciferol (Vitamin D 45886 Unit), 1 CAP PO WK Famotidine (Pepcid), 20 MG PO TID Gabapentin (Neurontin), 1 CAP PO TID Insulin Glargine (Lantus Solostar), 20 UNITS SC QAM Isosorbide Mononitrate Ext Rel (Imdur Ext Rel), 60 MG PO QAM Liraglutide (Victoza), 1.8 MG SQ DAILY Lisinopril (Zestril), 5 MG PO DAILY Multivitamin (Multivitamin), 1 TAB PO DAILY Mycophenolate Mofetil (Cellcept), 1 CAP PO BID Ocuvite Preservision (Ocuvite Preservision), 1 TAB PO DAILY Prochlorperazine Maleate (Compazine), 1 TAB PO Q6 Rosuvastatin Calcium (Crestor), 1 TAB PO DAILY Temazepam (Restoril), 15 MG PO HS Scheduled PRN Nitroglycerin (Nitrostat), 1 TAB SL UD PRN for Chest Pain Allergies Coded Allergies: Penicillins (Verified Allergy, Mild, ITCHY, ANXIETY, 05/24/17) Acetaminophen (Verified Allergy, Unknown, RASH, 05/24/17) Loperamide (Verified Allergy, Unknown, 02/27/17) Vancomycin (Verified Allergy, Unknown, 02/27/17) Ziprasidone (Verified Allergy, Unknown, itching, 02/27/17) Physical Exam Vital Signs Date Time Temp Pulse Resp B/P (MAP) Pulse Ox O2 Delivery O2 Flow Rate FiO2 05/24/17 17:25 76 20 111/53 95 Room Air 05/24/17 14:59 63 18 94/55 97 Room Air 05/24/17 13:55 94 Room Air 05/24/17 13:55 94 Room Air 05/24/17 12:38 36.6 66 20 101/63 94 Room Air Physical Exam GENERAL: Patient is awake, alert, and in no acute distress. Patient is resting comfortably and showing no signs of anxiety EYES: The conjunctivae are clear. The pupils are round and reactive. EARS, NOSE, MOUTH AND THROAT: The nose is without any evidence of any deformity. Mucous membranes are moist tongue is midline NECK: The neck is nontender and supple. RESPIRATORY: Normal respiratory effort is noted there is no evidence of wheezing rhonchi or rales CARDIOVASCULAR: Regular rate and rhythm noted there no murmurs rubs or gallops normal S1 normal S2 GASTROINTESTINAL: The abdomen is soft. Bowel sounds are present in all quadrants. Abdomen is nontender MUSCULOSKELETAL/EXTREMITIES: There is no evidence of gross deformity full range of motion is noted in the hips and shoulders SKIN: There is no obvious evidence of any rash. There are no petechiae, pallor or cyanosis noted. NEUROLOGIC: Patient is awake alert and oriented x3 strength is symmetric patellar reflexes are 2+ bilaterally Medical Decision & Procedures Laboratory Results Test 05/24/17 13:39 05/24/17 13:50 RDW Standard Deviation 48.3 fL (36.4-46.3) RDW Coefficient of Variation 14.9 % (11.5-14.5) White Blood Count 9.47 K/uL (4.8-10.8) Red Blood Count 3.78 M/uL (4.2-5.4) Hemoglobin 11.3 g/dL (12.0-16.0) Hematocrit 33.5 % (37-47) Mean Corpuscular Volume 88.6 fL (80-100) Mean Corpuscular Hemoglobin 29.9 pg (25-34) Mean Corpuscular Hemoglobin Concent 33.7 g/dl (32-36) Platelet Count 231 K/uL (130-400) Mean Platelet Volume 10.0 fL (7.4-10.4) Neutrophils (%) (Auto) 73.0 % Lymphocytes (%) (Auto) 15.7 % Monocytes (%) (Auto) 10.1 % Eosinophils (%) (Auto) 0.4 % Basophils (%) (Auto) 0.4 % Neutrophils # (Auto) 6.90 K/uL (1.4-6.5) Lymphocytes # (Auto) 1.49 K/uL (1.2-3.4) Monocytes # (Auto) 0.96 K/uL (0.11-0.59) Eosinophils # (Auto) 0.04 K/uL (0-0.5) Basophils # (Auto) 0.04 K/uL (0-0.2) Immature Granulocyte % (Auto) 0.4 % Immature Granulocyte # (Auto) 0.04 K/uL (0.00-0.02) Prothrombin Time 10.5 SECONDS (9.0-12.0) Prothromb Time International Ratio 1.0 (0.9-1.1) Activated Partial Thromboplast Time 25.5 SECONDS (21.0-31.0) Partial Thromboplastin Ratio 1.0 Est Creatinine Clear Calc Drug Dose 26.8 ml/min Magnesium Level 2.2 mg/dl (1.8-2.4) Total Bilirubin 0.6 mg/dl (0.2-1) Direct Bilirubin 0.2 mg/dl (0-0.2) Aspartate Amino Transf (AST/SGOT) 12 U/L (15-37) Alanine Aminotransferase (ALT/SGPT) 22 U/L (12-78) Alkaline Phosphatase 103 U/L (45-117) Troponin I < 0.015 ng/ml (0-0.045) Total Protein 7.1 gm/dl (6.4-8.2) Albumin 2.9 gm/dl (3.4-5.0) Thyroid Stimulating Hormone (TSH) 0.593 uIu/ml (0.300-4.500) Urine Color YELLOW Urine Appearance TURBID (CLEAR) Urine pH 5.0 (4.5-7.5) Urine Specific [place] 1.018 (1.000-1.030) Urine Protein 1+ (NEG) Urine Glucose (UA) NEG (NEG) Urine Ketones NEG (NEG) Urine Occult Blood TRACE (NEG) Urine Nitrite NEG (NEG) Urine Bilirubin NEG (NEG) Urine Urobilinogen NEG (NEG) Urine Leukocyte Esterase LARGE (NEG) Urine WBC (Auto) >30 /hpf (0-5) Urine RBC (Auto) 0-4 /hpf (0-4) Urine Hyaline Casts (Auto) 1-5 /lpf (0-5) Urine Epithelial Cells (Auto) 10-20 /lpf (0-5) Urine Bacteria (Auto) 4+ (NEG) Laboratory results per my review. Medications Administered Medications (Trade) Dose Ordered Sig/[place] Route Start Time Stop Time Status Last Admin Dose Admin Cefdinir (Omnicef Cap) 600 mg ONE STAT PO 05/24/17 14:54 05/24/17 14:55 DC 05/24/17 15:30 600 MG ECG Per My Interpretation Indication: weakness Rate (beats per minute): 67 Rhythm: normal sinus Findings: Q waves (Inferior), other (no PVC) Comparison ECG Date: 04/15/17 Change: no significant change ED Course 1252: The patient was evaluated in room A2. A complete history and physical examination were performed. 1254: Ordered NSS 1,000 ml @ 999 mls/hr IV. 1454: Ordered Cefnidir 600 mg PO. 1552: I updated the patient on her test results. 1630: The patient refuses to do a walk test and refuses to be discharged home. 1638: I discussed the patient's case with Nelida MATHIS. The patient will be evaluated for further management. Medical Decision Differential diagnosis: Etiologies such as metabolic, infection, hypo/hyperglycemia, electrolyte abnormalities, cardiac sources, intracerebral event, toxicologic, neurologic, as well as others were entertained. Nursing notes reviewed. The patient's previous electronic medical records reviewed. The patient is a 57-year-old female who presented to the emergency department for an evaluation of generalized weakness. The patient states that she has very severe weakness in both lower extremities. The patient was recently seen and diagnosed with an infection and was started on Zithromax. I discussed patient's laboratory and radiographic studies with her. I requested that we put an IV in the patient to give her IV hydration as well as IV antibiotics but she refused multiple times. The patient had patellar tendon reflexes which were intact and I was unsure why she would complain of ongoing weakness. I recommended that she follow-up with the primary care physician and started on an antibiotic that would be appropriate for her urinary tract infection but she refused to leave without being evaluated again by myself as well as the charge nurse. We are very familiar with the patient and we were very concerned for her safety because she kept saying that she was discovered to go home and crawl around and I did not feel that this was appropriate. For this reason I discussed her case with the on-call [facility] hospitalist group. They have agreed to evaluate the patient in the emergency department for further management and disposition. Medication Reconcilliation Current Medication List: was personally reviewed by me Blood Pressure Screening Patient's blood pressure: Normal blood pressure Consults Time Called: 163 Consulting Physician: Nelida MATHIS Returned Call: [phone] I discussed the patient's case with Nelida MATHIS. The patient will be evaluated for further management. Impression Primary Impression: Weakness Additional Impressions: UTI (urinary tract infection) Dehydration Acute kidney injury Scribe Attestation The scribe's documentation has been prepared under my direction and personally reviewed by me in its entirety. I confirm that the note above accurately reflects all work, treatment, procedures, and medical decision making performed by me. Departure Information Dispostion Being Evaluated By Hospitalist Prescriptions Cefdinir (OMNICEF) 300 Mg Cap 600 MG PO DAILY, #14 CAP Prov: Nico Saab, DO 05/24/17 Referrals Mikala Vásquez (PCP) Patient Instructions My [facility] Health Problem Qualifiers Additional Impressions: UTI (urinary tract infection) Urinary tract infection type: acute cystitis Hematuria presence: without hematuria Qualified Codes: N30.00 - Acute cystitis without hematuria
[2017-05-24 14:01] LABS: PTT PATIENT 25.5 SECONDS (21.0-31.0)
[2017-05-24 14:13] LABS: ALBUMIN 2.9 gm/dl (3.4-5.0); ALT/SGPT 22 U/L (12-78); AST/SGOT 12 U/L (15-37); BLOOD UREA NITROGEN 55 mg/dl (7-18); CALCIUM 8.8 mg/dl (8.5-10.1); CARBON DIOXIDE 21 mmol/L (21-32); CREATININE 2.37 mg/dl (0.60-1.20); GLUCOSE 207 mg/dl (70-99); POTASSIUM 5.6 mmol/L (3.5-5.1); SODIUM 138 mmol/L (136-145)
[2017-05-24 14:24] LABS: ALKALINE PHOSPHATASE 103 U/L (45-117); TOTAL PROTEIN 7.1 gm/dl (6.4-8.2)
[2017-05-24] MEDS ORDERED: CEFDINIR 300 MG CAP PO STA (14:54)
[2017-05-24] MEDS ORDERED: CEFD300C2 PO (14:57)
[2017-05-24] MEDS ORDERED: INSDGIPEN SC (15:32)
[2017-05-24] MEDS ORDERED: MULT-190 PO (15:32)
[2017-05-24] MEDS ORDERED: MULT-506 PO (15:32)
[2017-05-24] MEDS ORDERED: AZITTAB PO (15:32)
--- NOTE | 2017-05-24 17:38 | History and Physical ---
History & Physical Date & Time of Service: May 24, 2017 at 17:38 Chief Complaint: Weakness Primary Care Physician: Mikala Vásquez History of Present Illness Source: patient 57 y/o F with complex medical history includes - renal transplant 1989, CAD, DM II, hypothyroidism, TAMARA, SLE, schizoaffective disorder. Presents fall secondary to her "knees giving out" and generalized weakness comprising of an inability to get back up. She denies palpitations or lightheaded/dizziness prior to fall and states she did not hit her head or sustain any other injury. She states this is not her first time her legs have given out, She admits to poor fluid intake.When EMS arrived they found the patient on the floor. The patient states she was unable to hold herself up when EMS helped her get up from the floor. In the ER, labs are significant for mild hyperkalemia without EKG changes, elevated creatinine from her baseline, evidence of dehydration and UA is positive for infection. The patient was recently admitted for a UTI. She reports she has been taking her antibiotics as prescribed. She denies dysuria, urgency, frequency, or discoloured or foul-smelling urine. She otherwise denies chest pain, shortness of breath, nausea, abdominal pain, fever or chills. ROS is unremarkable except as noted above. Past Medical/Surgical History 1) MDR E coli - 05/10 2) Renal transplant 1998 3) Schizoaffective disorder 4) Hypothyroidism 5) Hyperparathyroidism 6) CAD - cath/stent placement 7) DM II 8) TAMARA - does not comply with any therapy 9) SLE 10) Gerd 11) Borderline personality 12) HTN 13) HPL 14) Osteoporosis Surgical: 1) Parathyroidectomy 2) Cardiac stent 3) Renal transplant Family History FH: dementia MOTHER FH: diabetes mellitus SISTER GRANDMOTHER FH: heart disease FATHER MOTHER FH: lung cancer FATHER FH: rheumatoid arthritis SISTER FHx: heart disease Social History Smoking Status: Never Smoker Drug Use: none Marital Status: single Housing status: lives alone Occupational Status: disabled Immunizations History of Influenza Vaccine: Yes History of Tetanus Vaccine?: Unknown History of Pneumococcal: Yes Pneumococcal Date: Jun 23, 2001 History of Hepatitis B Vaccine: Unknown Allergies Coded Allergies: Penicillins (Verified Allergy, Mild, ITCHY, ANXIETY, 05/24/17) Acetaminophen (Verified Allergy, Unknown, RASH, 05/24/17) Loperamide (Verified Allergy, Unknown, 02/27/17) Vancomycin (Verified Allergy, Unknown, 02/27/17) Ziprasidone (Verified Allergy, Unknown, itching, 02/27/17) Home Medications Scheduled Aspirin (Aspirin), 1 TAB PO DAILY Azithromycin (Zithromax Z-Anthony), 1 PKT PO UD Baclofen (Lioresal), 10 MG PO TID Carvedilol (Coreg), 25 MG PO DAILY Cefdinir (Omnicef), 600 MG PO DAILY Cyclosporine (Neoral), 50 MG PO BID Dexlansoprazole (Dexilant), 30 MG PO DAILY Duloxetine HCl (Cymbalta), 1 CAP PO DAILY Ergocalciferol (Vitamin D 16775 Unit), 1 CAP PO WK Famotidine (Pepcid), 20 MG PO TID Gabapentin (Neurontin), 1 CAP PO TID Insulin Glargine (Lantus Solostar), 20 UNITS SC QAM Isosorbide Mononitrate Ext Rel (Imdur Ext Rel), 60 MG PO QAM Liraglutide (Victoza), 1.8 MG SQ DAILY Lisinopril (Zestril), 5 MG PO DAILY Multivitamin (Multivitamin), 1 TAB PO DAILY Mycophenolate Mofetil (Cellcept), 1 CAP PO BID Ocuvite Preservision (Ocuvite Preservision), 1 TAB PO DAILY Prochlorperazine Maleate (Compazine), 1 TAB PO Q6 Rosuvastatin Calcium (Crestor), 1 TAB PO DAILY Temazepam (Restoril), 15 MG PO HS Scheduled PRN Nitroglycerin (Nitrostat), 1 TAB SL UD PRN for Chest Pain Physical Exam Vital Signs Date Time Temp Pulse Resp B/P (MAP) Pulse Ox O2 Delivery O2 Flow Rate FiO2 05/24/17 17:25 76 20 111/53 95 Room Air 05/24/17 14:59 63 18 94/55 97 Room Air 05/24/17 13:55 94 Room Air 05/24/17 13:55 94 Room Air 05/24/17 12:38 36.6 66 20 101/63 94 Room Air General Appearance: WD/WN, no apparent distress Head: normocephalic, atraumatic Eyes: normal inspection ENT: hearing grossly normal Neck: supple, no adenopathy Respiratory/Chest: lungs clear, normal breath sounds, no respiratory distress, no accessory muscle use Cardiovascular: regular rate, rhythm, no gallop, no murmur, normal peripheral pulses Abdomen/GI: normal bowel sounds, non tender, soft Back: normal inspection, no CVA tenderness Extremities/Musculoskelatal: no calf tenderness, no pedal edema Neurologic/Psych: alert, normal reflexes, + pertinent finding (persecutory delusions) Skin: normal color, warm/dry, no rash Diagnostics Laboratory Results Results Past 24 Hours Test 05/24/17 13:39 05/24/17 13:50 Range/Units White Blood Count 9.47 4.8-10.8 K/uL Red Blood Count 3.78 4.2-5.4 M/uL Hemoglobin 11.3 12.0-16.0 g/dL Hematocrit 33.5 37-47 % Mean Corpuscular Volume 88.6 80-100 fL Mean Corpuscular Hemoglobin 29.9 25-34 pg Mean Corpuscular Hemoglobin Concent 33.7 32-36 g/dl Platelet Count 231 130-400 K/uL Mean Platelet Volume 10.0 7.4-10.4 fL Neutrophils (%) (Auto) 73.0 % Lymphocytes (%) (Auto) 15.7 % Monocytes (%) (Auto) 10.1 % Eosinophils (%) (Auto) 0.4 % Basophils (%) (Auto) 0.4 % Neutrophils # (Auto) 6.90 1.4-6.5 K/uL Lymphocytes # (Auto) 1.49 1.2-3.4 K/uL Monocytes # (Auto) 0.96 0.11-0.59 K/uL Eosinophils # (Auto) 0.04 0-0.5 K/uL Basophils # (Auto) 0.04 0-0.2 K/uL RDW Standard Deviation 48.3 36.4-46.3 fL RDW Coefficient of Variation 14.9 11.5-14.5 % Immature Granulocyte % (Auto) 0.4 % Immature Granulocyte # (Auto) 0.04 0.00-0.02 K/uL Prothrombin Time 10.5 9.0-12.0 SECONDS Prothromb Time International Ratio 1.0 0.9-1.1 Activated Partial Thromboplast Time 25.5 21.0-31.0 SECONDS Partial Thromboplastin Ratio 1.0 Sodium Level 138 136-145 mmol/L Potassium Level 5.6 3.5-5.1 mmol/L Chloride Level 109 98-107 mmol/L Carbon Dioxide Level 21 21-32 mmol/L Anion Gap 8.0 3-11 mmol/L Blood Urea Nitrogen 55 7-18 mg/dl Creatinine 2.37 0.60-1.20 mg/dl Est Creatinine Clear Calc Drug Dose 26.8 ml/min Estimated GFR () 25.3 Estimated GFR (Non- 21.9 BUN/Creatinine Ratio 23.2 10-20 Random Glucose 207 70-99 mg/dl Calcium Level 8.8 8.5-10.1 mg/dl Magnesium Level 2.2 1.8-2.4 mg/dl Total Bilirubin 0.6 0.2-1 mg/dl Direct Bilirubin 0.2 0-0.2 mg/dl Aspartate Amino Transf (AST/SGOT) 12 15-37 U/L Alanine Aminotransferase (ALT/SGPT) 22 12-78 U/L Alkaline Phosphatase 103 45-117 U/L Troponin I < 0.015 0-0.045 ng/ml Total Protein 7.1 6.4-8.2 gm/dl Albumin 2.9 3.4-5.0 gm/dl Thyroid Stimulating Hormone (TSH) 0.593 0.300-4.500 uIu/ml Urine Color YELLOW Urine Appearance TURBID CLEAR Urine pH 5.0 4.5-7.5 Urine Specific [place] 1.018 1.000-1.030 Urine Protein 1+ NEG Urine Glucose (UA) NEG NEG Urine Ketones NEG NEG Urine Occult Blood TRACE NEG Urine Nitrite NEG NEG Urine Bilirubin NEG NEG Urine Urobilinogen NEG NEG Urine Leukocyte Esterase LARGE NEG Urine WBC (Auto) >30 0-5 /hpf Urine RBC (Auto) 0-4 0-4 /hpf Urine Hyaline Casts (Auto) 1-5 0-5 /lpf Urine Epithelial Cells (Auto) 10-20 0-5 /lpf Urine Bacteria (Auto) 4+ NEG Impression Assessment and Plan 57 y/o F with renal transplant 1989, CAD, DM II, hypothyroidism, TAMARA, SLE, schizoaffective disorder admitted for urinary tract infection and acute kidney injury, with evidence of dehydration, with generalized weakness Acute kidney injury on bkgd CKD with evidence of dehydration - Creatinine 2.37, baseline 1.2 - IVF 1L of NSS @ 100ml/hr - reassess for further hydration in AM - Encourage PO intake of fluids UTI - UA shows leuks, blood, bacteria - Empirically placed on Ertapenem given previous history of MDR E Coli 05/10, will narrow based on culture results - Trace urine cultures Generalized weakness - IVF as above - Check orthostatic BPs - PT/OT evals ordered Renal transplant - Continue mycophenolate and cyclosporine. DM II - Continue Lantus 20u SC qAM and placed on ISS - BG checks ac/hs CAD - Continue ASA, Imdur, rosuvastatin, carvedilol. Hypothyroidism - Continue levothyroxine Schizoaffective and borderline personality - Continue home regimen: duloxetine and temazepam VTE ppx - SCDs FULL CODE Resuscitation Status VTE Prophylaxis Will order VTE Prophylaxis: Yes Resident Tracking Resident Involvement: Resident Care Provided Care Provided: [facility] Medicine Assessment/Plan Resident Physician Supervision Note: I was present with Dr. Cheung during the history and exam. I discussed the case with the resident and agree with the findings and plan as documented in the note. Any exceptions or clarifications are listed here. Pt seen and examined at bedside. Mood is labile but generally AAOx3. Reports diffuse weakness as noted resulting in inability to care for self and transition to hospital care w/ lab abnormalities as appreciated above. Agree w/ IV rehydration w/ broad spectrum coverage prior to UCx considering h/o MDR UTI in the setting of renal transplant. Will continue immunosuppressive regimen as well. Monitor glucose and DMII will continue lantus w/ qAC meals. Will likely need rehab on discharge though refused previously, so PT/OT early.
[2017-05-24] MEDS ORDERED: ONDANSETRON INJ 2 MG/ML 2 ML VIAL IV PRN (18:15)
[2017-05-24] MEDS: SODIUM CHLORIDE 0.9% 1000ML 1,000 ML IV SCH ×2 (18:15→21:49)
[2017-05-24] MEDS ORDERED: ALUMINUM/MAGNESIUM/SIMETH (MAALOX MAX) 30 ML UDC PO PRN (18:15)
[2017-05-24] MEDS ORDERED: POLYETHYLENE (MIRALAX) 17 GM PACK PO PRN (18:15)
[2017-05-24] MEDS ORDERED: MAGNESIUM HYDROXIDE SUSP 30 ML UDC PO PRN (18:15)
[2017-05-24] MEDS ORDERED: GLUCOSE 40% GEL 15 GM TUBE PO PRN ×2 (18:30→19:15)
[2017-05-24] MEDS ORDERED: GLUCOSE 10 TABS/TUBE PO PRN ×2 (18:30→19:15)
[2017-05-24] MEDS ORDERED: GLUCAGON FOR INJ 1 MG VIAL SQ PRN ×2 (18:30→19:15)
[2017-05-24] MEDS ORDERED: NITROGLYCERIN 0.4 MG SL PER TAB CHARGE SL PRN (18:30)
[2017-05-24] MEDS ORDERED: DEXTROSE 50% 50 ML SYR IV PRN (18:30)
[2017-05-24 19:03] VITALS: O2SAT 95
[2017-05-24 19:45] VITALS: Ht 162.6 cm; Wt 78.3 kg
[2017-05-24 19:49] VITALS: BP 136/81; PULSE 60; TEMP 36.6; O2SAT 92
[2017-05-24] MEDS: FAMOTIDINE 20 MG TAB PO SCH (20:00)
[2017-05-24] MEDS: MYCOPHENOLATE MOFETIL 250 MG CAP (CELLCEPT) PO SCH (20:00)
[2017-05-24] MEDS: BACLOFEN 10 MG TAB PO SCH (20:00)
[2017-05-24] MEDS: GABAPENTIN 400 MG CAP PO SCH (20:00)
[2017-05-24] MEDS: CycloSPORINE (NEORAL) 25 MG CAP PO SCH (20:00)
[2017-05-24] MEDS: INSULIN ASPART 100 UNITS/ML 3 ML PEN SC SCH (20:29)
[2017-05-24] MEDS: ERTAPENEM IV 1 GM in SODIUM CHLOR 0.9% AD-VAN 50ML 50 ML IV SCH (21:00)
[2017-05-24] MEDS ORDERED: CEFTRIAXONE SOD INJ 1 GM in DEXTROSE 5% ADD-VANTAGE 50ML 50 ML IV STA (21:31)
[2017-05-24] MEDS: TEMAZEPAM 15 MG CAP PO SCH (22:00)
[2017-05-25 00:30] VITALS: BP 139/74; PULSE 66; TEMP 36.9; O2SAT 94
[2017-05-25] MEDS: BACLOFEN 10 MG TAB PO SCH ×5 (01:09→20:47)
[2017-05-25] MEDS: FAMOTIDINE 20 MG TAB PO SCH ×4 (01:10→20:48)
[2017-05-25] MEDS: GABAPENTIN 400 MG CAP PO SCH ×4 (01:16→20:37)
[2017-05-25] MEDS: PROCHLORPERAZINE MALEATE 10 MG TAB PO SCH ×4 (05:52→17:22)
[2017-05-25] MEDS: INSULIN ASPART 100 UNITS/ML 3 ML PEN SC SCH ×4 (07:52→20:46)
[2017-05-25] MEDS: CARVEDILOL 25 MG TAB PO SCH (07:52)
[2017-05-25] MEDS: ROSUVASTATIN CALCIUM 5 MG TAB PO SCH (07:52)
[2017-05-25] MEDS: DULOXETINE (CYMBALTA) 30 MG CAP PO SCH (07:52)
[2017-05-25] MEDS: MYCOPHENOLATE MOFETIL 250 MG CAP (CELLCEPT) PO SCH ×2 (07:52→20:41)
[2017-05-25] MEDS: ISOSORBIDE MONONITRATE 60 MG TABCR PO SCH (07:53)
[2017-05-25] MEDS: ASPIRIN 81 MG ECTAB PO SCH (07:53)
[2017-05-25] MEDS: MULTIVITAMIN TAB PO SCH (07:54)
[2017-05-25] MEDS: CEROVITE ADV FORMULA TAB PO SCH (07:54)
[2017-05-25] MEDS: CycloSPORINE (NEORAL) 25 MG CAP PO SCH ×2 (07:55→20:37)
[2017-05-25] MEDS: INSULIN GLARGINE SOLOSTAR 100 UNITS/ML 3 ML PEN SC SCH (07:56)
--- NOTE | 2017-05-25 08:53 | Family Medicine Progress Note ---
Progress Note Date of Service May 25, 2017. Subjective Pt evaluation today including: conversation w/ patient, physical exam, chart review, lab review, review of studies, conversation w/ erp consultant, review of inpatient medication list Patient has been un-cooperative with nursing staff overnight, full report received from Dr. Gunn Went to see patient this morning, but she refused to answer the majority of my questions and displayed persecutory delusions such as "you're only here because you're being paid to get rid of me" and "you can't help me, you're going to ship me out to a penitentiary to " despite my assurance of wanting to help her feel better because I care about her health and well-being. When asked why she is refusing all of her medication, patient states "because I don't want them." Patient admits she was not taking all of her home medications because she was told not to. When asked who told her this, she stated "That's between me and my food or baggage handling rampman." When asked about pain, she stated "yes, but nothing you can help me with." Unable to complete a thorough review of systems due to patient not co-operating. Of note, room smelled foul, informed by nursing staff that patient soiled herself overnight but would not allow staff to change her clothes/linen. Objective Vital Signs Date Time Temp Pulse Resp B/P (MAP) Pulse Ox O2 Delivery O2 Flow Rate FiO2 05/25/17 00:30 36.9 66 18 139/74 (95) 94 Room Air 05/25/17 00:00 Room Air 05/24/17 20:00 Room Air 05/24/17 19:49 36.6 60 18 136/81 (99) 92 Room Air 05/24/17 19:45 Room Air 05/24/17 19:03 36.6 80 20 112/60 95 Room Air 05/24/17 17:25 76 20 111/53 95 Room Air 05/24/17 14:59 63 18 94/55 97 Room Air 05/24/17 13:55 94 Room Air 05/24/17 13:55 94 Room Air 05/24/17 12:38 36.6 66 20 101/63 94 Room Air Physical Exam General Appearance: WD/WN, no apparent distress, + pertinent finding (Patient lying in her bed at angle, eye closed, arms crossed over her chest, scowling) Eyes: normal inspection ENT: hearing grossly normal Neurologic/Psychiatric: alert, + pertinent finding (flat affect. Persecutory delusions.) Notes: I approached patient, requesting to do a physical examination. Patient states "don't you touch me." Observational assessment performed only. Laboratory Results Results Past 24 Hours Test 05/25/17 04:44 Range/Units Assessment and Plan 57 y/o F with renal transplant 1998, CAD, DM II, hypothyroidism, TAMARA, SLE, schizoaffective disorder admitted for urinary tract infection and acute kidney injury, with evidence of dehydration, with generalized weakness Acute kidney injury on bkgd CKD with evidence of dehydration - Creatinine 2.37, baseline 1.2 - IVF 1L of NSS @ 100ml/hr - reassess for further hydration in AM - Encourage PO intake of fluids - Repeat labs ordered, however, patient has not allowed for lab draw. BMP pending. UTI - UA shows leuks, blood, bacteria - Empirically placed on Ertapenem given previous history of MDR E Coli 05/10, will narrow based on culture results - Urine cultures show gram negative bacilli - sensitivities pending. Generalized weakness - IVF as above - Check orthostatic BPs - PT/OT evals ordered Renal transplant - Continue mycophenolate and cyclosporine. DM II - Continue Lantus 20u SC qAM and placed on ISS - BG checks ac/hs CAD - Continue ASA, Imdur, rosuvastatin, carvedilol. Hypothyroidism - Continue levothyroxine Schizoaffective and borderline personality - Continue home regimen: duloxetine and temazepam - Psych consulted as patient, recommended PO Haldol 2mg BID VTE ppx - SCDs FULL CODE ADDENDUM - Patient has been refusing antibiotics since admission - Spiked a fever of 39.3 (confirmed via rectal temp) - States back and abdominal pain, Poor historian in terms of further pain classification. Of note, transplanted kidney, likely not located in flank and more likely to be situated in abdomen. Denies N/V. - Exam: appears flush and clammy, rattling cough. H: S1 and S2, mildly tachycardic, no murmurs. L: poor inspiratory effort, diminished air sounds. A: soft, non-distended, no focal tenderness - Plan: Blood cultures, dose of ertapenam, CXR, renal U/S - Patient currently agreeable Continued [facility] stay due to: fever, multiple IV medications needed Resident Tracking Resident Involvement: Resident Care Provided Care Provided: Adult Hospital Medicine Assessment/Plan Resident Physician Supervision Note: I was present with Dr. Cheung during the history and exam. I discussed the case with the resident and agree with the findings and plan as documented in the note. Any exceptions or clarifications are listed here. Pt remains adamant that she is being persecuted and refuses to participate in active care, despite multiple encouragement. She refuses IV medications and refuses to articulate reasons why beyond a general feeling of loss of control and desire to be well without taking any medications. She takes oral medications that she requests only. Per psychiatry, this is behavior that she has demonstrated repeatedly in the past and is likely to respond poorly to medication, though it has been offered and refused. During the afternoon, she developed a fever (39.3C) and requested medication to ameliorate. No NSAIDs 2/2 IRIS in transplant kidney, has tolerated APAP repeatedly in the past per pharmacy, so will give that and monitor. STRONGLY encourage antibiotics and IV fluids as previously discussed, as well as labs previously ordered and refused.
[2017-05-25] MEDS ORDERED: SODIUM POLYST. SULF SUSP 15G/60ML PO STA (12:14)
--- NOTE | 2017-05-25 12:14 | Nephrology Consultation ---
Nephrology Consultation Date & Providers Date of Consultation: May 25, 2017. Primary Care Provider: Mikala Vásquez Referring Provider: Reason for Consultation Evaluation and management for acute kidney injury with history of chronic kidney disease. History of Present Illness Kecia is a 57 year old female with past medical history significant for hypertension, stage III chronic kidney disease with history of donor renal transplant admitted to the hospital with generalized weakness and acute kidney injury. Nephrologic consult was requested to manage acute kidney injury and hyperkalemia. Electronic medical records including labs and imaging are reviewed in detail during patient's visit. Most of the information was from review of EMR record and emergency room and EMS report as patient did not really provide any history and she was just complaining randomly about different thing and changing subjects frequently. Kecia presented to the Emergency Room with complaints of constant generalized weakness since yesterday. At home she was lying and floor several hours as she fell like her knees were too weak to stand up but denies any history of fall or injury. When EMS helped her get up from the floor. She notes a decreased appetite. The patient denies any urinary symptoms, chest pain, shortness of breath, nausea, abdominal pain, fever or chills. She was recently admitted for a UTI and reports she has been taking her antibiotics as prescribed. She states she took all of her medications. 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 Eventually she received a disease donor renal transplant in 1998. She has been enjoying at pretty decent allograft function baseline creatinine has been around 1-1.2 however had several episodes of acute kidney injury previously. No history of rejection. 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 Lately she has been seeing Dr. Ortiz, last visit with Dr. Ortiz was in August 2016 and after that there was several cancellation and no shows. She has been on Cyclosporine 50 twice a day and mycophenolate 250 twice a day. Not on chronic steroids. On admission creatinine was 2.6, potassium was 5.6. Urinalysis with trace proteinuria, no hematuria, had 4+ bacteria. Blood pressure has been stable. Repeat lab was ordered but currently pending. Allergies Coded Allergies: Penicillins (Verified Allergy, Mild, ITCHY, ANXIETY, 05/24/17) Acetaminophen (Verified Allergy, Unknown, RASH, 05/24/17) Loperamide (Verified Allergy, Unknown, 02/27/17) Vancomycin (Verified Allergy, Unknown, 02/27/17) Ziprasidone (Verified Allergy, Unknown, itching, 02/27/17) Inpatient Medications Current Inpatient Medications Medications (Trade) Dose Ordered Sig/Suyapa Route Start Time Stop Time Status Last Admin Dose Admin Al Hydrox/Mg Hydrox/Simethicone (Maalox Max Susp) 15 ml Q4H PRN PO 05/24/17 18:15 06/23/17 18:14 Magnesium Hydroxide (Milk Of Magnesia Susp) 30 ml Q6H PRN PO 05/24/17 18:15 06/23/17 18:14 Polyethylene (Miralax Powder Packet) 17 gm DAILY PRN PO 05/24/17 18:15 06/23/17 18:14 Ondansetron HCl (Zofran Inj) 4 mg Q6H PRN IV 05/24/17 18:15 06/23/17 18:14 Ertapenem 1 gm/ Sodium Chloride 50 ml @ 120 mls/hr Q24H IV 05/24/17 21:00 05/29/17 20:59 Aspirin (Ecotrin Tab) 81 mg DAILY PO 05/25/17 08:00 06/24/17 08:59 Baclofen (Lioresal Tab) 10 mg TID PO 05/24/17 20:00 06/23/17 20:59 05/25/17 01:10 10 MG Carvedilol (Coreg Tab) 25 mg DAILY PO 05/25/17 08:00 06/24/17 08:59 Cyclosporine (Neoral Cap) 50 mg BID PO 05/24/17 20:00 06/23/17 20:59 Duloxetine HCl (Cymbalta Cap) 30 mg DAILY PO 05/25/17 08:00 06/24/17 08:59 Famotidine (Pepcid Tab) 20 mg TID PO 05/24/17 20:00 06/23/17 20:59 05/25/17 01:10 20 MG Gabapentin (Neurontin Cap) 400 mg TID PO 05/24/17 20:00 06/23/17 20:59 05/25/17 01:16 400 MG Insulin Glargine (Lantus Solostar Pen) 20 units QAM SC 05/25/17 08:00 06/24/17 08:59 Isosorbide Mononitrate (Imdur Ext Rel Tab) 60 mg QAM PO 05/25/17 08:00 06/24/17 08:59 Multivitamins (Multivitamin Tab) 1 tab DAILY PO 05/25/17 08:00 06/24/17 08:59 Mycophenolate Mofetil (Cellcept Cap) 250 mg BID PO 05/24/17 20:00 06/23/17 20:59 Nitroglycerin (Nitrostat Tab) 0.4 mg UD PRN SL 05/24/17 18:30 06/23/17 18:29 Multivitamins/ Minerals (Multivitamin W/ Minerals Tab) 1 tab DAILY PO 05/25/17 08:00 06/24/17 08:59 Prochlorperazine Maleate (Compazine Tab) 10 mg Q6 PO 05/25/17 00:00 06/24/17 00:00 Rosuvastatin Calcium (Crestor Tab) 5 mg DAILY PO 05/25/17 08:00 06/24/17 08:59 Temazepam (Restoril Cap) 15 mg HS PO 05/24/17 21:00 06/23/17 20:59 Glucose (Glucose 40% Gel) 15-30 GRAMS 15 GRAMS... UD PRN PO 05/24/17 18:30 06/23/17 18:29 Glucose (Glucose Chew Tab) 4-8 Tablets 4 Tabl... UD PRN PO 05/24/17 18:30 06/23/17 18:29 Dextrose (Dextrose 50% 50ML Syringe) 25-50ML OF 50% DW IV FOR... UD PRN IV 05/24/17 18:30 06/23/17 18:29 Glucagon (Glucagon Inj) 1 mg UD PRN SQ 05/24/17 18:30 06/23/17 18:29 Insulin Aspart (novoLOG ASPART) SLIDING SCALE If C... ACHS SC 05/24/17 21:00 06/23/17 20:59 Family History FH: dementia MOTHER FH: diabetes mellitus SISTER GRANDMOTHER FH: heart disease FATHER MOTHER FH: lung cancer FATHER FH: rheumatoid arthritis SISTER FHx: heart disease Social History Smoking Status: Never Smoker Drug Use: none Marital Status: single Housing Status: lives alone Occupation: disabled Review of Systems A complete review of systems was performed. Pertinent positives are noted above. All other systems are negative. Physical Exam Date Time Temp Pulse Resp B/P (MAP) Pulse Ox O2 Delivery O2 Flow Rate FiO2 05/25/17 00:30 36.9 66 18 139/74 (95) 94 Room Air 05/25/17 00:00 Room Air 05/24/17 20:00 Room Air 05/24/17 19:49 36.6 60 18 136/81 (99) 92 Room Air 05/24/17 19:45 Room Air 05/24/17 19:03 36.6 80 20 112/60 95 Room Air 05/24/17 17:25 76 20 111/53 95 Room Air 05/24/17 14:59 63 18 94/55 97 Room Air 05/24/17 13:55 94 Room Air 05/24/17 13:55 94 Room Air 05/24/17 12:38 36.6 66 20 101/63 94 Room Air GENERAL: Middle-aged female, AAA x 3, very irritable and angry, not in any distress. HEENT: Atraumatic, normocephalic. NECK: Supple, no JVD, no carotid bruit appreciated. ENT: No sinus tenderness MOUTH and THROAT: Moist oral mucosa, no oral ulcer or pharyngeal erythema RESPIRATORY: Normal breathing efforts, no accessory muscle use, clear to auscultation bilaterally, no wheezes or rales. CARDIOVASCULAR: S1, S2 normal, rate rhythm regular. ABDOMEN: Soft, nontender, positive bowel sound. MUSCULOSKELETAL: No CVA tenderness. No joint swelling, erythema or tenderness. Normal range of motion. SKIN: No skin rash EXTREMITY: No lower extremity edema NEURO: No gross focal neurological deficit, speech fluent. PSYCHIATRY: Normal mood and judgment Laboratory Results Last 24 Hours Test 05/24/17 13:39 05/24/17 13:50 05/25/17 04:44 White Blood Count 9.47 K/uL Red Blood Count 3.78 M/uL Hemoglobin 11.3 g/dL Hematocrit 33.5 % Mean Corpuscular Volume 88.6 fL Mean Corpuscular Hemoglobin 29.9 pg Mean Corpuscular Hemoglobin Concent 33.7 g/dl Platelet Count 231 K/uL Mean Platelet Volume 10.0 fL Neutrophils (%) (Auto) 73.0 % Lymphocytes (%) (Auto) 15.7 % Monocytes (%) (Auto) 10.1 % Eosinophils (%) (Auto) 0.4 % Basophils (%) (Auto) 0.4 % Neutrophils # (Auto) 6.90 K/uL Lymphocytes # (Auto) 1.49 K/uL Monocytes # (Auto) 0.96 K/uL Eosinophils # (Auto) 0.04 K/uL Basophils # (Auto) 0.04 K/uL RDW Standard Deviation 48.3 fL RDW Coefficient of Variation 14.9 % Immature Granulocyte % (Auto) 0.4 % Immature Granulocyte # (Auto) 0.04 K/uL Prothrombin Time 10.5 SECONDS Prothromb Time International Ratio 1.0 Activated Partial Thromboplast Time 25.5 SECONDS Partial Thromboplastin Ratio 1.0 Sodium Level 138 mmol/L Potassium Level 5.6 mmol/L Chloride Level 109 mmol/L Carbon Dioxide Level 21 mmol/L Anion Gap 8.0 mmol/L Blood Urea Nitrogen 55 mg/dl Creatinine 2.37 mg/dl Est Creatinine Clear Calc Drug Dose 26.8 ml/min Estimated GFR () 25.3 Estimated GFR (Non- 21.9 BUN/Creatinine Ratio 23.2 Random Glucose 207 mg/dl Calcium Level 8.8 mg/dl Magnesium Level 2.2 mg/dl Total Bilirubin 0.6 mg/dl Direct Bilirubin 0.2 mg/dl Aspartate Amino Transf (AST/SGOT) 12 U/L Alanine Aminotransferase (ALT/SGPT) 22 U/L Alkaline Phosphatase 103 U/L Troponin I < 0.015 ng/ml Total Protein 7.1 gm/dl Albumin 2.9 gm/dl Thyroid Stimulating Hormone (TSH) 0.593 uIu/ml Urine Color YELLOW Urine Appearance TURBID Urine pH 5.0 Urine Specific [place] 1.018 Urine Protein 1+ Urine Glucose (UA) NEG Urine Ketones NEG Urine Occult Blood TRACE Urine Nitrite NEG Urine Bilirubin NEG Urine Urobilinogen NEG Urine Leukocyte Esterase LARGE Urine WBC (Auto) >30 /hpf Urine RBC (Auto) 0-4 /hpf Urine Hyaline Casts (Auto) 1-5 /lpf Urine Epithelial Cells (Auto) 10-20 /lpf Urine Bacteria (Auto) 4+ Impression (1) Acute kidney injury (2) Kidney transplant status, cadaveric (3) Systemic lupus erythematosus (4) Benign hypertension (5) Hyperparathyroidism (6) UTI (urinary tract infection) 57-year-old female with acute kidney injury with history of stage 3 chronic kidney disease with prior history of donor renal transplant. Baseline creatinine has been 1.1-1.2 with prior history of several episodes of acute kidney injury. No history of acute or chronic rejection before. Presented to the hospital with generalized weakness and found to have acute kidney injury and hyperkalemia, creatinine was 2.6 and potassium was 5.6. Blood pressure stable. At home she was on lisinopril 5 milligrams p.o. daily which was on hold since admission. Acute kidney injury could be hemodynamically mediated with volume depletion, unlikely allograft rejection. Recommendations --Kayexalate 30 grams p.o. x1 dose now --repeat renal panel and potassium --continue on IV fluid at normal saline at 100 mL/hour --continue to hold lisinopril, avoid NSAIDs and other nephrotoxic medications --continue on renal diet --dose medications for GFR less than 30 Thank you for allowing me to participate in your patient's care. It was a pleasure to see Kecia
[2017-05-25] MEDS: SODIUM CHLORIDE 0.45% 1000ML 1,000 ML IV SCH (13:31)
--- NOTE | 2017-05-25 14:30 | Psychiatric Consultation ---
Consultation Date of Consultation May 25, 2017. Identifying Data Kecia is a 57-year-old woman with a long history of severe borderline personality disorder who has required countywide collaboration to manage her behavior. She also has a history of recurrent depression with psychosis versus schizoaffective disorder. She is known to the psychiatry service, last admitted in 2016, discharged after only 2 days secondary to lack of participation in treatment. Chief Complaint "Oh great! A shrink ! I don't want to talk to you ". History of Present Illness Consultation requested for verbal aggression and care refusals. Patient admitted with weakness and acute kidney injury. Found to have UTI and being treated with antibiotics and fluid resuscitation. Creatinine 2.37 on admission , baseline 1.2. Has been difficult with staff, yelling, demanding and then refusing offered assistance. Patient greets me by telling me that psychiatrists are lower than tape worms. She denies any need for mental health treatment and indicates that she is not taking the Cymbalta at home. "I read this sheet on that and I don't need that shit." When offered an opportunity to discuss her concerns, she identifies many grievances from being told to get off the floor by the microphone operator on the phone to the bumpy stretcher ride to the ambulance, to being given a paper coffee cup this morning which made her feel like a criminal. She frequently mocks the staff and historical treatment providers. She belittles the intelligence and motivations of others and seems to feel that other people enjoy hurting her. "They get off every time they give you a shot or turn you in bed." She is able to identify appropriately indication for hospitalization and recalls the recommended treatment and states that she is willing to accept the antibiotic. I spent a great deal of time attempting to establish a rapport with her or at least identify common goals but was rather unsuccessful in that regard. She did not present as overtly psychotic or confused and thoughts, while colored by significant cognitive distortions, were not overtly psychotic. She did not make any suicidal direct threats but hinted that if she had to go to a correction, that she would have to "do something first." She would not discuss this further stating it was none of my business. Discussion with nursing staff indicated that the patient had not been physically aggressive but had been verbally aggressive and demanding. Patient declined my offer for treatment of anxiety. Reviewed with her that there is a previously constructed behavioral health plan at the hospital intends to hold her accountable to. Past Psychiatric History Current OP Treatment: no current treatment Prior OP Treatment: psychiatrist, therapist, adult protective caseworker Prior Psych Hospitalizations: [facility] (last 2015), other ( multiple) Suicide Attempts: Yes (distant hx) Past Medication Trials Previous trials include but not limited to; Wellbutrin, Trileptal, Klonopin, Paxil, Haldol, Saphris, Cogentin Additional Notes Previously saw Dr. Latasha Faustin. Past Medical/Surgical History Medical history notable for renal transplant, coronary artery disease, diabetes mellitus, hypothyroidism, SLE, UTI, acute kidney injury Allergies Allergies: Coded Allergies: Penicillins (Verified Allergy, Mild, ITCHY, ANXIETY, 05/24/17) Acetaminophen (Verified Allergy, Unknown, RASH, 05/24/17) Loperamide (Verified Allergy, Unknown, 02/27/17) Vancomycin (Verified Allergy, Unknown, 02/27/17) Ziprasidone (Verified Allergy, Unknown, itching, 02/27/17) Home Medications Scheduled Aspirin (Aspirin), 1 TAB PO DAILY Azithromycin (Zithromax Z-Anthony), 1 PKT PO UD Baclofen (Lioresal), 10 MG PO TID Carvedilol (Coreg), 25 MG PO DAILY Cefdinir (Omnicef), 600 MG PO DAILY Cyclosporine (Neoral), 50 MG PO BID Dexlansoprazole (Dexilant), 30 MG PO DAILY Duloxetine HCl (Cymbalta), 1 CAP PO DAILY Ergocalciferol (Vitamin D 46022 Unit), 1 CAP PO WK Famotidine (Pepcid), 20 MG PO TID Gabapentin (Neurontin), 1 CAP PO TID Insulin Glargine (Lantus Solostar), 20 UNITS SC QAM Isosorbide Mononitrate Ext Rel (Imdur Ext Rel), 60 MG PO QAM Liraglutide (Victoza), 1.8 MG SQ DAILY Lisinopril (Zestril), 5 MG PO DAILY Multivitamin (Multivitamin), 1 TAB PO DAILY Mycophenolate Mofetil (Cellcept), 1 CAP PO BID Ocuvite Preservision (Ocuvite Preservision), 1 TAB PO DAILY Prochlorperazine Maleate (Compazine), 1 TAB PO Q6 Rosuvastatin Calcium (Crestor), 1 TAB PO DAILY Temazepam (Restoril), 15 MG PO HS Scheduled PRN Nitroglycerin (Nitrostat), 1 TAB SL UD PRN for Chest Pain Family History FH: dementia MOTHER FH: diabetes mellitus SISTER GRANDMOTHER FH: heart disease FATHER MOTHER FH: lung cancer FATHER FH: rheumatoid arthritis SISTER FHx: heart disease History of Suicide: No Psychiatric History: Yes Smoking Use Smoking Status: Never Smoker Personal History Lives in: [place] Education: started college (11th grade ed) Children: none Review of Systems Patient reports neck and back pain, weakness, but is otherwise non- participatory in review of systems Examination Laboratory Results Last 24 Hours Test 05/25/17 04:44 Mental Examination During interview pt is: alert and oriented, other (partially cooperative) Appearance: disheveled Eye contact is: fair Motor behavior is: no abnormal motor movements Speech: other (speech is clear, not pressured) Affect: labile (quickly tearful, quickly angry.) Mood is: irritable Thought process: circumstantial, other (but able to identify goal of receiving treatment.) Thought content: cognitive distortions (however she does not appear overly delusional) Cognition: other (memory appears grossly intact conversationally) Intelligence estimated to be: other (below average to average) Insight: impaired Judgement: impaired (patient did not endorse direct suicidal or homicidal ideation however limited participation in interview with likely limited disclosure) Impression / Recommendations Impression This is a 57-year-old female with a long history of borderline personality disorder and depression vs schizoaffective disorder. She is presently admitted for acute kidney injury and UTI. She has been difficult to care for, demanding and then refusing care. Unfortunately, the behavior that she demonstrates appears to be a symptom of her long-standing severe personality disorder and not something that is likely to quickly or easily responded to pharmacotherapy. At the present time she is not endorsing active suicidal or homicidal ideation and there is not an indication for acute psychiatric hospitalization and previous psychiatric hospitalization at this hospital was unfruitful secondary to her unwillingness to participate in treatment. She is impairing her ability to receive care as a function of her behavior. I reviewed the fact that there is a behavior plan in place for her that she will be held accountable to. We will work to update the behavioral health plan to include consequences for verbal threats as an indication to pursue harassment charges and for physical assaultive behavior to be charged as battery. She might benefit from low-dose Haldol, 2 mg by mouth twice a day which she has taken in the past however she declined any medication interventions from me today. Certainly this is a very difficult patient and will require consistency on approaches. I would suggest consideration for two staff persons to approach her with offered interventions. She likely also aims to agitate and disrupt and simply not outwardly reacting to her provocations may help mitigate the behavior. The specifics of the behavioral health plan should again be reviewed with the patient by the primary team or hospital administration and will request the liaison nurse help facilitate.
[2017-05-25 16:46] VITALS: BP 137/79; PULSE 86; TEMP 39.3; O2SAT 96
[2017-05-25 17:25] VITALS: TEMP 39.3
[2017-05-25] MEDS: ACETAMINOPHEN 500 MG TAB PO PRN (17:54)
[2017-05-25 18:53] VITALS: TEMP 37.9
[2017-05-25 19:12] LABS: BASO % 0.3 %; BASO ABS # 0.03 K/uL (0-0.2); EOS % 0.3 %; EOS ABS # 0.03 K/uL (0-0.5); HEMATOCRIT 32.9 % (37-47); HEMOGLOBIN 11.2 g/dL (12.0-16.0); IG# 0.01 K/uL (0.00-0.02); LYMPH % 17.5 %; LYMPH ABS # 1.53 K/uL (1.2-3.4); MEAN CELL VOLUME 87.5 fL (80-100); MEAN CORPUSCULAR HEMOGLOBIN 29.8 pg (25-34); MEAN PLATELET VOLUME 10.3 fL (7.4-10.4); MONO % 15.7 %; MONO ABS # 1.37 K/uL (0.11-0.59); NEUT % 66.1 %; NEUT ABS # 5.75 K/uL (1.4-6.5); PLATELET COUNT 198 K/uL (130-400); RED CELL DISTRIBUTION WIDTH CV 14.6 % (11.5-14.5); RED CELL DISTRIBUTION WIDTH SD 46.9 fL (36.4-46.3); WHITE BLOOD COUNT 8.72 K/uL (4.8-10.8)
[2017-05-25 19:45] LABS: CALCIUM 8.2 mg/dl (8.5-10.1); CREATININE 1.81 mg/dl (0.60-1.20); POTASSIUM 4.4 mmol/L (3.5-5.1)
--- NOTE | 2017-05-25 19:51 | DIAGNOSTIC IMAGING REPORT ---
ULTRASOUND RENAL TRANSPLANT CLINICAL HISTORY: Pyelonephritis. COMPARISON STUDY: Abdominal CT dated 12/03/2016. TECHNIQUE: Multiple rome scale, color Doppler, and spectral Doppler sonograms of the transplanted kidney were obtained in the transverse and longitudinal planes. FINDINGS: The transcend kidney is identified in the left pelvis. The transplant is normal in size, measuring 12.0 cm and length. There is no hydronephrosis. Renal echotexture is within normal limits with no evidence of hydronephrosis. The resistive index in the segmental arterial branches ranges from 0.59 and 0.70. Elevated velocities are questioned at the arterial anastomosis. This measures up to 297 cm/s. Velocities within the main renal artery measure up to 68 cm/s. The main renal vein is patent. No perirenal fluid collection is seen. The bladder is partially decompressed and grossly unremarkable. IMPRESSION: 1. The renal transplant is normal in size and without hydronephrosis. 2. The main renal artery is patent. 3. Elevated velocities are suggested there are 2 anastomosis which measure up to 297 cm/s. This is of indeterminant, if any, significance. Electronically signed by: Michael Weiss M.D. 05/25/2017 7:50 PM Dictated Date/Time: 05/25/2017 7:47 PM
[2017-05-25] MEDS: HALOPERIDOL 1 MG TAB PO SCH (20:35)
[2017-05-25] MEDS: TEMAZEPAM 15 MG CAP PO SCH (20:50)
[2017-05-25] MEDS: ERTAPENEM IV 1 GM in SODIUM CHLOR 0.9% AD-VAN 50ML 50 ML IV SCH (20:52)
[2017-05-26] MEDS: PROCHLORPERAZINE MALEATE 10 MG TAB PO SCH ×5 (01:14→23:42)
[2017-05-26] MEDS: SODIUM CHLORIDE 0.45% 1000ML 1,000 ML IV SCH ×3 (01:41→22:01)
[2017-05-26] MEDS: ACETAMINOPHEN 500 MG TAB PO PRN (02:55)
[2017-05-26 06:58] VITALS: BP 111/70; PULSE 58; TEMP 36.8; O2SAT 93
[2017-05-26 07:11] LABS: BASO % 0.4 %; BASO ABS # 0.04 K/uL (0-0.2); EOS % 0.4 %; EOS ABS # 0.04 K/uL (0-0.5); HEMATOCRIT 31.5 % (37-47); HEMOGLOBIN 10.7 g/dL (12.0-16.0); IG# 0.02 K/uL (0.00-0.02); LYMPH % 16.2 %; MEAN CORPUSCULAR HEMOGLOBIN 29.9 pg (25-34); MEAN PLATELET VOLUME 10.1 fL (7.4-10.4); MONO % 21.6 %; MONO ABS # 2.14 K/uL (0.11-0.59); NEUT % 61.2 %; NEUT ABS # 6.05 K/uL (1.4-6.5); PLATELET COUNT 188 K/uL (130-400); RED CELL DISTRIBUTION WIDTH CV 14.6 % (11.5-14.5); WHITE BLOOD COUNT 9.89 K/uL (4.8-10.8)
[2017-05-26 07:35] LABS: CALCIUM 8.1 mg/dl (8.5-10.1); CREATININE 1.52 mg/dl (0.60-1.20); POTASSIUM 4.1 mmol/L (3.5-5.1)
--- NOTE | 2017-05-26 08:58 | Family Medicine Progress Note ---
Progress Note Date of Service May 26, 2017. Subjective Pt evaluation today including: conversation w/ patient, chart review Pt very sleepy today - ?due to Haldol. She denied any pain. Norah KOEHLER and I informed her that she had a resistant strain of her urine infection and it has also gone into her blood, and she said she understood. She repeatedly said "I'm tired, I'm tired" Additional Comments: Unable to obtain ROS due to fatigue Medications Current Inpatient Medications Medications (Trade) Dose Ordered Sig/Suyapa Route Start Time Stop Time Status Last Admin Dose Admin Al Hydrox/Mg Hydrox/Simethicone (Maalox Max Susp) 15 ml Q4H PRN PO 05/24/17 18:15 06/23/17 18:14 Magnesium Hydroxide (Milk Of Magnesia Susp) 30 ml Q6H PRN PO 05/24/17 18:15 06/23/17 18:14 Polyethylene (Miralax Powder Packet) 17 gm DAILY PRN PO 05/24/17 18:15 06/23/17 18:14 Ondansetron HCl (Zofran Inj) 4 mg Q6H PRN IV 05/24/17 18:15 06/23/17 18:14 Ertapenem 1 gm/ Sodium Chloride 50 ml @ 120 mls/hr Q24H IV 05/24/17 21:00 05/29/17 20:59 05/25/17 20:52 120 MLS/HR Aspirin (Ecotrin Tab) 81 mg DAILY PO 05/25/17 08:00 06/24/17 08:59 Baclofen (Lioresal Tab) 10 mg TID PO 05/24/17 20:00 06/23/17 20:59 05/25/17 20:47 10 MG Carvedilol (Coreg Tab) 25 mg DAILY PO 05/25/17 08:00 06/24/17 08:59 Cyclosporine (Neoral Cap) 50 mg BID PO 05/24/17 20:00 06/23/17 20:59 05/25/17 20:37 50 MG Duloxetine HCl (Cymbalta Cap) 30 mg DAILY PO 05/25/17 08:00 06/24/17 08:59 Famotidine (Pepcid Tab) 20 mg TID PO 05/24/17 20:00 06/23/17 20:59 05/25/17 20:48 20 MG Gabapentin (Neurontin Cap) 400 mg TID PO 05/24/17 20:00 06/23/17 20:59 05/25/17 20:37 400 MG Insulin Glargine (Lantus Solostar Pen) 20 units QAM SC 05/25/17 08:00 06/24/17 08:59 Isosorbide Mononitrate (Imdur Ext Rel Tab) 60 mg QAM PO 05/25/17 08:00 06/24/17 08:59 Multivitamins (Multivitamin Tab) 1 tab DAILY PO 05/25/17 08:00 06/24/17 08:59 Mycophenolate Mofetil (Cellcept Cap) 250 mg BID PO 05/24/17 20:00 06/23/17 20:59 05/25/17 20:41 250 MG Nitroglycerin (Nitrostat Tab) 0.4 mg UD PRN SL 05/24/17 18:30 06/23/17 18:29 Multivitamins/ Minerals (Multivitamin W/ Minerals Tab) 1 tab DAILY PO 05/25/17 08:00 06/24/17 08:59 Prochlorperazine Maleate (Compazine Tab) 10 mg Q6 PO 05/25/17 00:00 06/24/17 00:00 05/26/17 01:14 10 MG Rosuvastatin Calcium (Crestor Tab) 5 mg DAILY PO 05/25/17 08:00 06/24/17 08:59 Temazepam (Restoril Cap) 15 mg HS PO 05/24/17 21:00 06/23/17 20:59 05/25/17 20:50 15 MG Glucose (Glucose 40% Gel) 15-30 GRAMS 15 GRAMS... UD PRN PO 05/24/17 18:30 06/23/17 18:29 Glucose (Glucose Chew Tab) 4-8 Tablets 4 Tabl... UD PRN PO 05/24/17 18:30 06/23/17 18:29 Dextrose (Dextrose 50% 50ML Syringe) 25-50ML OF 50% DW IV FOR... UD PRN IV 05/24/17 18:30 06/23/17 18:29 Glucagon (Glucagon Inj) 1 mg UD PRN SQ 05/24/17 18:30 06/23/17 18:29 Insulin Aspart (novoLOG ASPART) SLIDING SCALE If C... ACHS SC 05/24/17 21:00 06/23/17 20:59 05/25/17 20:46 8 UNITS Sodium Chloride 1,000 ml @ 100 mls/hr Q10H IV 05/25/17 12:20 06/24/17 12:19 05/26/17 01:41 100 MLS/HR Acetaminophen (Tylenol Tab) 1,000 mg Q8H PRN PO 05/25/17 17:45 06/24/17 17:44 05/26/17 02:55 1,000 MG Haloperidol (Haldol Tab) 2 mg BID PO 05/25/17 20:00 06/24/17 19:59 05/25/17 20:35 2 MG Objective Vital Signs Date Time Temp Pulse Resp B/P (MAP) Pulse Ox O2 Delivery O2 Flow Rate FiO2 05/26/17 06:58 36.8 58 18 111/70 (84) 93 Room Air 05/26/17 01:25 Room Air 05/25/17 18:53 37.9 05/25/17 17:25 39.3 05/25/17 16:46 39.3 86 20 137/79 (98) 96 Room Air Physical Exam General Appearance: WD/WN, no apparent distress, + pertinent finding (lethargic ) Eyes: normal inspection, PERRL ENT: hearing grossly normal Neck: supple, no JVD Respiratory/Chest: lungs clear, normal breath sounds, no respiratory distress Cardiovascular: regular rate, rhythm, no JVD, no murmur Abdomen: normal bowel sounds, non tender, soft Extremities: non-tender, no pedal edema Neurologic/Psychiatric: + pertinent finding (lethargic, would not comply w/ neuro exam) Skin: no rash Laboratory Results Last 24 Hours Test 05/25/17 18:56 05/25/17 20:18 05/26/17 06:17 05/26/17 07:58 White Blood Count 8.72 K/uL 9.89 K/uL Red Blood Count 3.76 M/uL 3.58 M/uL Hemoglobin 11.2 g/dL 10.7 g/dL Hematocrit 32.9 % 31.5 % Mean Corpuscular Volume 87.5 fL 88.0 fL Mean Corpuscular Hemoglobin 29.8 pg 29.9 pg Mean Corpuscular Hemoglobin Concent 34.0 g/dl 34.0 g/dl Platelet Count 198 K/uL 188 K/uL Mean Platelet Volume 10.3 fL 10.1 fL Neutrophils (%) (Auto) 66.1 % 61.2 % Lymphocytes (%) (Auto) 17.5 % 16.2 % Monocytes (%) (Auto) 15.7 % 21.6 % Eosinophils (%) (Auto) 0.3 % 0.4 % Basophils (%) (Auto) 0.3 % 0.4 % Neutrophils # (Auto) 5.75 K/uL 6.05 K/uL Lymphocytes # (Auto) 1.53 K/uL 1.60 K/uL Monocytes # (Auto) 1.37 K/uL 2.14 K/uL Eosinophils # (Auto) 0.03 K/uL 0.04 K/uL Basophils # (Auto) 0.03 K/uL 0.04 K/uL RDW Standard Deviation 46.9 fL 47.0 fL RDW Coefficient of Variation 14.6 % 14.6 % Immature Granulocyte % (Auto) 0.1 % 0.2 % Immature Granulocyte # (Auto) 0.01 K/uL 0.02 K/uL Sodium Level 138 mmol/L 138 mmol/L Potassium Level 4.4 mmol/L 4.1 mmol/L Chloride Level 108 mmol/L 107 mmol/L Carbon Dioxide Level 19 mmol/L 23 mmol/L Anion Gap 11.0 mmol/L 8.0 mmol/L Blood Urea Nitrogen 40 mg/dl 31 mg/dl Creatinine 1.81 mg/dl 1.52 mg/dl Est Creatinine Clear Calc Drug Dose 34.3 ml/min 40.9 ml/min Estimated GFR () 35.1 43.4 Estimated GFR (Non- 30.3 37.4 BUN/Creatinine Ratio 21.9 20.7 Random Glucose 344 mg/dl 203 mg/dl Calcium Level 8.2 mg/dl 8.1 mg/dl Beta-Hydroxybutyric Acid 1.14 mg/dL Bedside Glucose 307 mg/dl 202 mg/dl Assessment and Plan 57 yo F, with ESBL UTI and bacteremia, on background of borderline personality disorder, type II DM, coronary artery disease, renal insufficiency, and hx of UTIs, on day 2 of IV Ertapenem. ESBL Urinary tract infection with bacteremia - Urine cx from 05/24/17: E Coli, multiple abx resistances, sensitive to Ertapenem - Blood cx from 05/25/17: Gram negative bacilli, sensitivities pending - Ertapenem was ordered 05/24, pt declined it, first dose received 05/25 Borderline Personality Disorder / Schizoaffective Disorder - Appreciate Psych recommendations - Will discuss decreasing Haldol due to excessive fatigue Acute on chronic renal insufficiency, likely pre-renal, improving - Baseline Cr 1.2, currently 1.5, was 2.37 on admission - Will continue IVF for now until she has improved PO intake Generalized weakness - Pt declined PT evaluation Hx of renal transplant - Continue home mycophenolate and cyclosporine Type II DM, last A1c 8.5% in 2017 - Will recheck A1c - Pt has declined insulin over last two days, BSG 200-344 Coronary artery disease - Pt declined all cardiac meds. - Advised to continue aspirin, Imdur, Rosuvastatin, and Carvedilol Hypothyroidism - Continue Synthroid VTE: SCDs Dispo: Eventual DC home, will require long term care phlebotomist Abx so will discuss potentially needing placement Code status: FULL Resident Physician Supervision Note: I interviewed and examined the patient. Discussed with Dr. Hannah and agree with findings and plan as documented in the note. Any exceptions or clarifications are listed here: This patient has a history of none Being difficult at times and she spent most of the visit today with her eyes closed and not opening her eyes and being evasive with questioning. She does have history of schizoaffective disorder renal transplant is here with multidrug -resistant urinary tract infection sensitive to ertapenem which she is currently on she is forbidding us from placing a PICC line however she is agreeable to a ultrasound-guided peripheral IV line which may be able to sustain antibiotics for a few weeks. We are working with her case management team to determine if she qualifies for home ertapenem administration as are a few other antibiotics that she is sensitive to given her immunosuppressed state and her multidrug resistance will need to involve infectious disease and determine the final duration of her treatment plan Vital signs are stable her heart is regular her lungs are clear Multidrug-resistant E. coli bacteremia likely of urinary source present on admission, will need to have negative blood cultures to show clearance before hopefully discharging her home with her infectious disease doctors to help determine best antibiotic choice for her case management will need to also assist us Documented By: Tray Vaca Resident Tracking Resident Involvement: Resident Care Provided Care Provided: Adult Hospital Medicine
[2017-05-26] MEDS: BACLOFEN 10 MG TAB PO SCH ×3 (09:46→20:45)
[2017-05-26] MEDS: MULTIVITAMIN TAB PO SCH (09:46)
[2017-05-26] MEDS: HALOPERIDOL 1 MG TAB PO SCH ×2 (09:46→20:00)
[2017-05-26] MEDS: CEROVITE ADV FORMULA TAB PO SCH (09:46)
[2017-05-26 09:47] VITALS: PULSE 64
[2017-05-26] MEDS: CARVEDILOL 25 MG TAB PO SCH (09:47)
[2017-05-26] MEDS: FAMOTIDINE 20 MG TAB PO SCH ×3 (09:48→20:46)
[2017-05-26] MEDS: CycloSPORINE (NEORAL) 25 MG CAP PO SCH ×2 (09:48→20:43)
[2017-05-26] MEDS: ISOSORBIDE MONONITRATE 60 MG TABCR PO SCH (09:48)
[2017-05-26] MEDS: ASPIRIN 81 MG ECTAB PO SCH (09:48)
[2017-05-26] MEDS: GABAPENTIN 400 MG CAP PO SCH ×3 (09:49→20:44)
[2017-05-26] MEDS: ROSUVASTATIN CALCIUM 5 MG TAB PO SCH (09:49)
[2017-05-26] MEDS: DULOXETINE (CYMBALTA) 30 MG CAP PO SCH (09:49)
[2017-05-26] MEDS: MYCOPHENOLATE MOFETIL 250 MG CAP (CELLCEPT) PO SCH ×2 (09:49→20:00)
[2017-05-26] MEDS: INSULIN GLARGINE SOLOSTAR 100 UNITS/ML 3 ML PEN SC SCH (09:55)
[2017-05-26] MEDS: INSULIN ASPART 100 UNITS/ML 3 ML PEN SC SCH ×4 (09:56→22:07)
--- NOTE | 2017-05-26 10:11 | Nephrology Progress Note ---
Nephrology Progress Note Date of Service May 26, 2017. Chief Complaint F/U for acute kidney injury with history of chronic kidney disease. Subjective Kecia was seen and examined in her room this morning. She seems much more calmer and cooperative this morning. Her renal function improved, creatinine 1.5. Hyperkalemia resolved. Blood pressure well controlled. Remained afebrile.. Review of Systems A complete review of systems was performed. Pertinent positives are noted above. All other systems are negative. Vital Signs Last 8 Hrs Date Time Temp Pulse Resp B/P (MAP) Pulse Ox O2 Delivery O2 Flow Rate FiO2 05/26/17 06:58 36.8 58 18 111/70 (84) 93 Room Air 05/26/17 01:25 Room Air Last Recorded Weight Weight (Kilograms): 78.300 Physical Exam GENERAL: Middle-aged female, AAA x 3, healthy-appearing, not in any distress. NECK: Supple, no JVD. RESPIRATORY: Normal breathing efforts, no accessory muscle use, clear to auscultation bilaterally, no wheezes or rales. CARDIOVASCULAR: S1, S2 normal, rate rhythm regular. EXTREMITY: No lower extremity edema NEURO: speech fluent. PSYCHIATRY: Normal mood and judgment Family History FH: dementia MOTHER FH: diabetes mellitus SISTER GRANDMOTHER FH: heart disease FATHER MOTHER FH: lung cancer FATHER FH: rheumatoid arthritis SISTER FHx: heart disease Social History Smoking Status: Never smoker Drug Use: none Marital Status: single Housing Status: lives alone Occupation: disabled Laboratory Results Past 24 Hours 05/25/17 18:56 Red Blood Count 3.76, Mean Corpuscular Volume 87.5, Mean Corpuscular Hemoglobin 29.8, Mean Corpuscular Hemoglobin Concent 34.0, Mean Platelet Volume 10.3, Neutrophils (%) (Auto) 66.1, Lymphocytes (%) (Auto) 17.5, Monocytes (%) (Auto) 15.7, Eosinophils (%) (Auto) 0.3, Basophils (%) (Auto) 0.3, Neutrophils # (Auto ) 5.75, Lymphocytes # (Auto) 1.53, Monocytes # (Auto) 1.37, Eosinophils # (Auto ) 0.03, Basophils # (Auto) 0.03 05/26/17 06:17 Red Blood Count 3.58, Mean Corpuscular Volume 88.0, Mean Corpuscular Hemoglobin 29.9, Mean Corpuscular Hemoglobin Concent 34.0, Mean Platelet Volume 10.1, Neutrophils (%) (Auto) 61.2, Lymphocytes (%) (Auto) 16.2, Monocytes (%) (Auto) 21.6, Eosinophils (%) (Auto) 0.4, Basophils (%) (Auto) 0.4, Neutrophils # (Auto ) 6.05, Lymphocytes # (Auto) 1.60, Monocytes # (Auto) 2.14, Eosinophils # (Auto ) 0.04, Basophils # (Auto) 0.04 05/25/17 18:56 05/26/17 06:17 Test 05/25/17 18:56 05/25/17 20:18 05/26/17 06:17 05/26/17 07:58 White Blood Count 8.72 K/uL (4.8-10.8) 9.89 K/uL (4.8-10.8) Red Blood Count 3.76 M/uL (4.2-5.4) 3.58 M/uL (4.2-5.4) Hemoglobin 11.2 g/dL (12.0-16.0) 10.7 g/dL (12.0-16.0) Hematocrit 32.9 % (37-47) 31.5 % (37-47) Mean Corpuscular Volume 87.5 fL (80-100) 88.0 fL (80-100) Mean Corpuscular Hemoglobin 29.8 pg (25-34) 29.9 pg (25-34) Mean Corpuscular Hemoglobin Concent 34.0 g/dl (32-36) 34.0 g/dl (32-36) Platelet Count 198 K/uL (130-400) 188 K/uL (130-400) Mean Platelet Volume 10.3 fL (7.4-10.4) 10.1 fL (7.4-10.4) Neutrophils (%) (Auto) 66.1 % 61.2 % Lymphocytes (%) (Auto) 17.5 % 16.2 % Monocytes (%) (Auto) 15.7 % 21.6 % Eosinophils (%) (Auto) 0.3 % 0.4 % Basophils (%) (Auto) 0.3 % 0.4 % Neutrophils # (Auto) 5.75 K/uL (1.4-6.5) 6.05 K/uL (1.4-6.5) Lymphocytes # (Auto) 1.53 K/uL (1.2-3.4) 1.60 K/uL (1.2-3.4) Monocytes # (Auto) 1.37 K/uL (0.11-0.59) 2.14 K/uL (0.11-0.59) Eosinophils # (Auto) 0.03 K/uL (0-0.5) 0.04 K/uL (0-0.5) Basophils # (Auto) 0.03 K/uL (0-0.2) 0.04 K/uL (0-0.2) RDW Standard Deviation 46.9 fL (36.4-46.3) 47.0 fL (36.4-46.3) RDW Coefficient of Variation 14.6 % (11.5-14.5) 14.6 % (11.5-14.5) Immature Granulocyte % (Auto) 0.1 % 0.2 % Immature Granulocyte # (Auto) 0.01 K/uL (0.00-0.02) 0.02 K/uL (0.00-0.02) Anion Gap 11.0 mmol/L (3-11) 8.0 mmol/L (3-11) Est Creatinine Clear Calc Drug Dose 34.3 ml/min 40.9 ml/min Estimated GFR () 35.1 43.4 Estimated GFR (Non- 30.3 37.4 BUN/Creatinine Ratio 21.9 (10-20) 20.7 (10-20) Calcium Level 8.2 mg/dl (8.5-10.1) 8.1 mg/dl (8.5-10.1) Beta-Hydroxybutyric Acid 1.14 mg/dL (0.2-2.81) Bedside Glucose 307 mg/dl (70-90) 202 mg/dl (70-90) Allergies Coded Allergies: Penicillins (Verified Allergy, Mild, ITCHY, ANXIETY, 05/24/17) Loperamide (Verified Allergy, Unknown, 02/27/17) Vancomycin (Verified Allergy, Unknown, 02/27/17) Ziprasidone (Verified Allergy, Unknown, itching, 02/27/17) Medications Current Inpatient Medications Medications (Trade) Dose Ordered Sig/Suyapa Route Start Time Stop Time Status Last Admin Dose Admin Al Hydrox/Mg Hydrox/Simethicone (Maalox Max Susp) 15 ml Q4H PRN PO 05/24/17 18:15 06/23/17 18:14 Magnesium Hydroxide (Milk Of Magnesia Susp) 30 ml Q6H PRN PO 05/24/17 18:15 06/23/17 18:14 Polyethylene (Miralax Powder Packet) 17 gm DAILY PRN PO 05/24/17 18:15 06/23/17 18:14 Ondansetron HCl (Zofran Inj) 4 mg Q6H PRN IV 05/24/17 18:15 06/23/17 18:14 Ertapenem 1 gm/ Sodium Chloride 50 ml @ 120 mls/hr Q24H IV 05/24/17 21:00 05/29/17 20:59 05/25/17 20:52 120 MLS/HR Aspirin (Ecotrin Tab) 81 mg DAILY PO 05/25/17 08:00 06/24/17 08:59 Baclofen (Lioresal Tab) 10 mg TID PO 05/24/17 20:00 06/23/17 20:59 05/25/17 20:47 10 MG Carvedilol (Coreg Tab) 25 mg DAILY PO 05/25/17 08:00 06/24/17 08:59 Cyclosporine (Neoral Cap) 50 mg BID PO 05/24/17 20:00 06/23/17 20:59 05/25/17 20:37 50 MG Duloxetine HCl (Cymbalta Cap) 30 mg DAILY PO 05/25/17 08:00 06/24/17 08:59 Famotidine (Pepcid Tab) 20 mg TID PO 05/24/17 20:00 06/23/17 20:59 05/25/17 20:48 20 MG Gabapentin (Neurontin Cap) 400 mg TID PO 05/24/17 20:00 06/23/17 20:59 05/25/17 20:37 400 MG Insulin Glargine (Lantus Solostar Pen) 20 units QAM SC 05/25/17 08:00 06/24/17 08:59 Isosorbide Mononitrate (Imdur Ext Rel Tab) 60 mg QAM PO 05/25/17 08:00 06/24/17 08:59 Multivitamins (Multivitamin Tab) 1 tab DAILY PO 05/25/17 08:00 06/24/17 08:59 Mycophenolate Mofetil (Cellcept Cap) 250 mg BID PO 05/24/17 20:00 06/23/17 20:59 05/25/17 20:41 250 MG Nitroglycerin (Nitrostat Tab) 0.4 mg UD PRN SL 05/24/17 18:30 06/23/17 18:29 Multivitamins/ Minerals (Multivitamin W/ Minerals Tab) 1 tab DAILY PO 05/25/17 08:00 06/24/17 08:59 Prochlorperazine Maleate (Compazine Tab) 10 mg Q6 PO 05/25/17 00:00 06/24/17 00:00 05/26/17 01:14 10 MG Rosuvastatin Calcium (Crestor Tab) 5 mg DAILY PO 05/25/17 08:00 06/24/17 08:59 Temazepam (Restoril Cap) 15 mg HS PO 05/24/17 21:00 06/23/17 20:59 05/25/17 20:50 15 MG Glucose (Glucose 40% Gel) 15-30 GRAMS 15 GRAMS... UD PRN PO 05/24/17 18:30 06/23/17 18:29 Glucose (Glucose Chew Tab) 4-8 Tablets 4 Tabl... UD PRN PO 05/24/17 18:30 06/23/17 18:29 Dextrose (Dextrose 50% 50ML Syringe) 25-50ML OF 50% DW IV FOR... UD PRN IV 05/24/17 18:30 06/23/17 18:29 Glucagon (Glucagon Inj) 1 mg UD PRN SQ 05/24/17 18:30 06/23/17 18:29 Insulin Aspart (novoLOG ASPART) SLIDING SCALE If C... ACHS SC 05/24/17 21:00 06/23/17 20:59 05/25/17 20:46 8 UNITS Sodium Chloride 1,000 ml @ 100 mls/hr Q10H IV 05/25/17 12:20 06/24/17 12:19 05/26/17 01:41 100 MLS/HR Acetaminophen (Tylenol Tab) 1,000 mg Q8H PRN PO 05/25/17 17:45 06/24/17 17:44 05/26/17 02:55 1,000 MG Haloperidol (Haldol Tab) 2 mg BID PO 05/25/17 20:00 06/24/17 19:59 05/25/17 20:35 2 MG Impression (1) Acute kidney injury (2) Kidney transplant status, cadaveric (3) Systemic lupus erythematosus (4) Benign hypertension (5) Hyperparathyroidism (6) UTI (urinary tract infection) 57-year-old female with acute kidney injury with history of stage 3 chronic kidney disease with prior history of donor renal transplant. Baseline creatinine has been 1.1-1.2 with prior history of several episodes of acute kidney injury. No history of acute or chronic rejection before. Presented to the hospital with generalized weakness and found to have acute kidney injury and hyperkalemia, creatinine was 2.6 and potassium was 5.6. Blood pressure stable. At home she was on lisinopril 5 milligrams p.o. daily which was on hold since admission. Acute kidney injury could be hemodynamically mediated with volume depletion, unlikely allograft rejection. Renal ultrasound otherwise unremarkable. Acute kidney injury resolving, renal function improved with IV hydration to creatinine 1.5. Hyperkalemia resolved. Blood and urine culture positive for E coli, currently continued on Invanz. Recommendations --discontinue IV fluid patient's p.o. intake adequate --continue to hold lisinopril, avoid NSAIDs and other nephrotoxic medications --continue on cyclosporine and CellCept current dose --continue on renal diet --dose medications for GFR less than 30 Will follow
[2017-05-26 10:26] LABS: HEMOGLOBIN A1C 7.9 % (4.5-5.6)
[2017-05-26 17:03] VITALS: BP 128/81; PULSE 61; TEMP 36.9; O2SAT 94
[2017-05-26] MEDS: ERTAPENEM IV 1 GM in SODIUM CHLOR 0.9% AD-VAN 50ML 50 ML IV SCH (20:43)
[2017-05-26] MEDS: TEMAZEPAM 15 MG CAP PO SCH (20:55)
[2017-05-26 23:21] VITALS: BP 128/81; PULSE 61; TEMP 37.3; O2SAT 94
[2017-05-27] MEDS: PROCHLORPERAZINE MALEATE 10 MG TAB PO SCH ×2 (06:03→12:54)
[2017-05-27] MEDS ORDERED: NURSING VERBAL MED ORDER ONE (06:45)
[2017-05-27 06:55] VITALS: BP 163/75; PULSE 61; TEMP 37; O2SAT 96
[2017-05-27] MEDS: SODIUM CHLORIDE 0.45% 1000ML 1,000 ML IV SCH (07:38)
[2017-05-27] MEDS: MYCOPHENOLATE MOFETIL 250 MG CAP (CELLCEPT) PO SCH (07:41)
[2017-05-27] MEDS: ROSUVASTATIN CALCIUM 5 MG TAB PO SCH (07:42)
[2017-05-27] MEDS: ISOSORBIDE MONONITRATE 60 MG TABCR PO SCH (07:42)
[2017-05-27] MEDS: ASPIRIN 81 MG ECTAB PO SCH (07:42)
[2017-05-27] MEDS: DULOXETINE (CYMBALTA) 30 MG CAP PO SCH (07:43)
[2017-05-27] MEDS: CycloSPORINE (NEORAL) 25 MG CAP PO SCH (07:43)
[2017-05-27] MEDS: CARVEDILOL 25 MG TAB PO SCH (07:43)
[2017-05-27] MEDS: GABAPENTIN 400 MG CAP PO SCH ×2 (07:44→13:24)
[2017-05-27] MEDS: HALOPERIDOL 1 MG TAB PO SCH (07:44)
[2017-05-27] MEDS: CEROVITE ADV FORMULA TAB PO SCH (07:44)
[2017-05-27] MEDS: FAMOTIDINE 20 MG TAB PO SCH ×2 (07:45→13:24)
[2017-05-27] MEDS: BACLOFEN 10 MG TAB PO SCH ×2 (07:45→13:23)
[2017-05-27 08:40] LABS: CALCIUM 8.9 mg/dl (8.5-10.1); CREATININE 1.12 mg/dl (0.60-1.20); POTASSIUM 3.9 mmol/L (3.5-5.1)
[2017-05-27] MEDS: INSULIN GLARGINE SOLOSTAR 100 UNITS/ML 3 ML PEN SC SCH (08:57)
[2017-05-27] MEDS: INSULIN ASPART 100 UNITS/ML 3 ML PEN SC SCH ×2 (08:58→12:57)
[2017-05-27] MEDS ORDERED: ERTA1INJ IV ×2 (09:38→14:19)
--- NOTE | 2017-05-27 11:43 | Nephrology Progress Note ---
Nephrology Progress Note Date of Service May 27, 2017. Chief Complaint F/U for acute kidney injury with history of chronic kidney disease. Nery Mcdonnell was seen and examined in her room this morning. She denies any symptoms. She was requesting to get her pain medications. Renal function improved creatinine currently at baseline, 1.1, electrolyte acceptable. Blood pressure stable. Review of Systems A complete review of systems was performed. Pertinent positives are noted above. All other systems are negative. Vital Signs Last 8 Hrs Date Time Temp Pulse Resp B/P (MAP) Pulse Ox O2 Delivery O2 Flow Rate FiO2 05/27/17 06:55 37.0 61 18 163/75 (104) 96 Room Air Last Recorded Weight Weight (Kilograms): 78.300 Physical Exam GENERAL: Middle-aged female, AAA x 3, healthy-appearing, not in any distress. NECK: Supple, no JVD. RESPIRATORY: Normal breathing efforts, no accessory muscle use, clear to auscultation bilaterally, no wheezes or rales. CARDIOVASCULAR: S1, S2 normal, rate rhythm regular. EXTREMITY: No lower extremity edema NEURO: speech fluent. PSYCHIATRY: Normal mood and judgment Family History FH: dementia MOTHER FH: diabetes mellitus SISTER GRANDMOTHER FH: heart disease FATHER MOTHER FH: lung cancer FATHER FH: rheumatoid arthritis SISTER FHx: heart disease Social History Smoking Status: Never smoker Drug Use: none Marital Status: single Housing Status: lives alone Occupation: disabled Laboratory Results Past 24 Hours 05/27/17 07:41 Test 05/26/17 11:17 05/26/17 16:40 05/26/17 20:49 05/27/17 07:41 Bedside Glucose 231 mg/dl (70-90) 150 mg/dl (70-90) 174 mg/dl (70-90) Anion Gap 8.0 mmol/L (3-11) Est Creatinine Clear Calc Drug Dose 55.5 ml/min Estimated GFR () 62.7 Estimated GFR (Non- 54.1 BUN/Creatinine Ratio 18.3 (10-20) Calcium Level 8.9 mg/dl (8.5-10.1) Allergies Coded Allergies: Penicillins (Verified Allergy, Mild, ITCHY, ANXIETY, 05/24/17) Loperamide (Verified Allergy, Unknown, 02/27/17) Vancomycin (Verified Allergy, Unknown, 02/27/17) Ziprasidone (Verified Allergy, Unknown, itching, 02/27/17) Medications Current Inpatient Medications Medications (Trade) Dose Ordered Sig/Suyapa Route Start Time Stop Time Status Last Admin Dose Admin Al Hydrox/Mg Hydrox/Simethicone (Maalox Max Susp) 15 ml Q4H PRN PO 05/24/17 18:15 06/23/17 18:14 Magnesium Hydroxide (Milk Of Magnesia Susp) 30 ml Q6H PRN PO 05/24/17 18:15 06/23/17 18:14 Polyethylene (Miralax Powder Packet) 17 gm DAILY PRN PO 05/24/17 18:15 06/23/17 18:14 Ondansetron HCl (Zofran Inj) 4 mg Q6H PRN IV 05/24/17 18:15 06/23/17 18:14 Ertapenem 1 gm/ Sodium Chloride 50 ml @ 120 mls/hr Q24H IV 05/24/17 21:00 05/29/17 20:59 05/26/17 20:43 120 MLS/HR Aspirin (Ecotrin Tab) 81 mg DAILY PO 05/25/17 08:00 06/24/17 08:59 05/27/17 07:42 81 MG Baclofen (Lioresal Tab) 10 mg TID PO 05/24/17 20:00 06/23/17 20:59 05/27/17 07:45 10 MG Carvedilol (Coreg Tab) 25 mg DAILY PO 05/25/17 08:00 06/24/17 08:59 05/27/17 07:43 25 MG Cyclosporine (Neoral Cap) 50 mg BID PO 05/24/17 20:00 06/23/17 20:59 05/27/17 07:43 50 MG Duloxetine HCl (Cymbalta Cap) 30 mg DAILY PO 05/25/17 08:00 06/24/17 08:59 05/27/17 07:43 30 MG Famotidine (Pepcid Tab) 20 mg TID PO 05/24/17 20:00 06/23/17 20:59 05/27/17 07:45 20 MG Gabapentin (Neurontin Cap) 400 mg TID PO 05/24/17 20:00 06/23/17 20:59 05/27/17 07:44 400 MG Insulin Glargine (Lantus Solostar Pen) 20 units QAM SC 05/25/17 08:00 06/24/17 08:59 05/26/17 09:55 20 UNITS Isosorbide Mononitrate (Imdur Ext Rel Tab) 60 mg QAM PO 05/25/17 08:00 06/24/17 08:59 05/27/17 07:42 60 MG Mycophenolate Mofetil (Cellcept Cap) 250 mg BID PO 05/24/17 20:00 06/23/17 20:59 05/27/17 07:41 250 MG Nitroglycerin (Nitrostat Tab) 0.4 mg UD PRN SL 05/24/17 18:30 06/23/17 18:29 Multivitamins/ Minerals (Multivitamin W/ Minerals Tab) 1 tab DAILY PO 05/25/17 08:00 06/24/17 08:59 Prochlorperazine Maleate (Compazine Tab) 10 mg Q6 PO 05/25/17 00:00 06/24/17 00:00 05/27/17 06:03 10 MG Rosuvastatin Calcium (Crestor Tab) 5 mg DAILY PO 05/25/17 08:00 06/24/17 08:59 05/27/17 07:42 5 MG Temazepam (Restoril Cap) 15 mg HS PO 05/24/17 21:00 06/23/17 20:59 05/25/17 20:50 15 MG Glucose (Glucose 40% Gel) 15-30 GRAMS 15 GRAMS... UD PRN PO 05/24/17 18:30 06/23/17 18:29 Glucose (Glucose Chew Tab) 4-8 Tablets 4 Tabl... UD PRN PO 05/24/17 18:30 06/23/17 18:29 Dextrose (Dextrose 50% 50ML Syringe) 25-50ML OF 50% DW IV FOR... UD PRN IV 05/24/17 18:30 06/23/17 18:29 Glucagon (Glucagon Inj) 1 mg UD PRN SQ 05/24/17 18:30 06/23/17 18:29 Insulin Aspart (novoLOG ASPART) SLIDING SCALE If C... ACHS SC 05/24/17 21:00 06/23/17 20:59 05/26/17 22:07 1 UNITS Sodium Chloride 1,000 ml @ 100 mls/hr Q10H IV 05/25/17 12:20 06/24/17 12:19 05/27/17 07:38 100 MLS/HR Acetaminophen (Tylenol Tab) 1,000 mg Q8H PRN PO 05/25/17 17:45 06/24/17 17:44 05/26/17 02:55 1,000 MG Haloperidol (Haldol Tab) 2 mg BID PO 05/25/17 20:00 06/24/17 19:59 05/25/17 20:35 2 MG Impression (1) Acute kidney injury (2) Kidney transplant status, cadaveric (3) Systemic lupus erythematosus (4) Benign hypertension (5) Hyperparathyroidism (6) UTI (urinary tract infection) 57-year-old female with acute kidney injury with history of stage 3 chronic kidney disease with prior history of donor renal transplant. Baseline creatinine has been 1.1-1.2 with prior history of several episodes of acute kidney injury. No history of acute or chronic rejection before. Presented to the hospital with generalized weakness and found to have acute kidney injury and hyperkalemia, creatinine was 2.6 and potassium was 5.6. Blood pressure stable. At home she was on lisinopril 5 milligrams p.o. daily which was on hold since admission. Acute kidney injury could be hemodynamically mediated with volume depletion, unlikely allograft rejection. Renal ultrasound otherwise unremarkable. Acute kidney injury resolving, renal function improved with IV hydration to creatinine 1.5. Hyperkalemia resolved. Blood and urine culture positive for E coli, currently continued on Invanz. Recommendations --acute kidney injury resolved and renal function improved currently at baseline 1.1, electrolyte acceptable. --resume lisinopril 5 milligram p.o. daily, avoid NSAIDs and other nephrotoxic medications --continue on cyclosporine and CellCept current dose --continue on renal diet --dose medications for GFR less than 30 Will follow
[2017-05-27] MEDS ORDERED: LIDOCAINE/PRILOCAINE 2.5% EA CRM EXT PRN (14:00)
[2017-05-27] MEDS: ERTAPENEM IV 1 GM in SODIUM CHLOR 0.9% AD-VAN 50ML 50 ML IV SCH (14:08)
--- NOTE | 2017-05-27 14:21 | Discharge Instructions ---
Discharge Instructions Date of Service May 27, 2017. Admission Reason for Admission: Acute Kidney Injury, Uti, Dehydration Discharge Discharge Diagnosis / Problem: Enteroccocus Bacteremia Discharge Goals Goal(s): Improve disease control Activity Recommendations Activity Limitations: per Instructions/Follow-up section Lifting Limitations: gradually increase as tolerated May Resume Sexual Activity: when tolerated Shower/Bathe: no limitations . Instructions / Follow-Up Instructions / Follow-Up You have a bacteria called Enterococcus in your blood, for which you need 14 days of antibiotics. The antibiotics were started on 05/24/17 and so should continue until your last dose on 07/07/17. Follow up with your PCP and Infectious Diseases as well. If your peripheral IV comes out, YOU SHOULD SPEAK WITH THE NURSING AGENCY who administers the medication and they can place a new one. You can also return to the Emergency Department for this. If you have any further fevers, chills, chest pain, shortness of breath, or other medical concerns, please seek medical attention. Current Hospital Diet Patient's current hospital diet: Diabetes Type 2 Diet Discharge Diet Recommended Diet: Regular Diet, Diabetes Type 2 Diet Pending Studies Studies pending at discharge: no Laboratory Results Hemoglobin A1c Test 05/26/17 06:17 Range/Units Estimated Average Glucose 180 mg/dl Hemoglobin A1c 7.9 H 4.5-5.6 % Medical Emergencies . Who to Call and When: Medical Emergencies: If at any time you feel your situation is an emergency, please call 911 immediately. . Non-Emergent Contact Non-Emergency issues call your: Primary Care Provider . . "Provider Documentation" section prepared by Shy Hannah. .
--- NOTE | 2017-05-27 14:34 | Discharge Summary ---
Discharge Summary Date of Service May 27, 2017. Discharge Summary Admission Date: May 24, 2017 at 18:10 Discharge Date: May 27, 2017 Discharge Disposition: Home with services Principal Diagnosis: Enterococcus Bacteremia Problems/Secondary Diagnoses: Personality Disorder Immunizations: Have You Had Influenza Vaccine: Yes History of Tetanus Vaccine?: Unknown History of Pneumococcal: Yes Pneumococcal Date: Jun 23, 2001 History of Hepatitis B Vaccine: Unknown Consultations: Psych Medication Reconciliation New Medications: Ertapenem Sodium (Invanz) 1 Gm Inj 1 GM IV DAILY for 10 Days, #10 VIAL Continued Medications: Aspirin (Aspirin) 81 Mg Tab 1 TAB PO DAILY for 30 Days, #30 TAB 3 Refills Baclofen (Lioresal) 10 Mg Tab 10 MG PO TID, TAB Carvedilol (Coreg) 25 Mg Tab 25 MG PO DAILY, TAB Cyclosporine (Neoral) 25 Mg Cap 50 MG PO BID, CAP Dexlansoprazole (Dexilant) 30 Mg Cap 30 MG PO DAILY Duloxetine HCl (Cymbalta) 30 Mg Cap 1 CAP PO DAILY for 30 Days, #30 CAP 5 Refills Ergocalciferol (Vitamin D 15841 Unit) 50,000 Unit Cap 1 CAP PO WK for 28 Days, #4 CAP 2 Refills Famotidine (Pepcid) 20 Mg Tab 20 MG PO TID, TAB Gabapentin (Neurontin) 400 Mg Cap 1 CAP PO TID for 30 Days, #90 CAP 2 Refills Insulin Glargine (Lantus Solostar) 100 Unit/Ml Inj 20 UNITS SC QAM, PEN Isosorbide Mononitrate Ext Rel (Imdur Ext Rel) 30 Mg Tabcr 60 MG PO QAM, TAB Liraglutide (Victoza) 18 Mg/3 Ml Inj 1.8 MG SQ DAILY Lisinopril (Zestril) 5 Mg Tab 5 MG PO DAILY, TAB Multivitamin (Multivitamin) Tab 1 TAB PO DAILY, TAB Mycophenolate Mofetil (Cellcept) 250 Mg Cap 1 CAP PO BID for 90 Days, #180 CAP 3 Refills Nitroglycerin (Nitrostat) 0.4 Mg Tab 1 TAB SL UD PRN for Chest Pain, #100 TAB 3 Refills Ocuvite Preservision (Ocuvite Preservision) 1 Tab Tab 1 TAB PO DAILY, TAB Rosuvastatin Calcium (Crestor) 5 Mg Tab 1 TAB PO DAILY for 30 Days, #30 TAB 5 Refills Temazepam (Restoril) 15 Mg Cap 15 MG PO HS, CAP Discontinued Medications: Azithromycin (Zithromax Z-Anthony) 250 Mg Tab 1 PKT PO UD for 5 Days, #6 TAB Cefdinir (Omnicef) 300 Mg Cap 600 MG PO DAILY, #14 CAP Prochlorperazine Maleate (Compazine) 10 Mg Tab 1 TAB PO Q6 for 7 Days, #30 TAB 3 Refills Discharge Exam Review of Systems: Constitutional: No fever, No chills, No sweats, No weight loss, No weakness Eyes: No worsening of vision ENT: No hearing loss Respiratory: No cough, No sputum, No wheezing, No shortness of breath, No dyspnea on exertion, No dyspnea at rest Cardiovascular: No chest pain, No orthopnea Abdomen: No pain, No nausea, No vomiting, No diarrhea, No constipation Musculoskeletal: No joint pain Genitourinary - Female: No dysuria, No urinary urgency, No urinary incontinence Neurologic: No memory loss, No paralysis, No weakness Psychiatric: No depression symptoms Endocrine: No fatigue Hematologic / Lymphatic: No abnormal bleeding/bruising Integumentary: No rash Physical Exam: General Appearance: WD/WN, no apparent distress Eyes: normal inspection, PERRL, EOMI ENT: hearing grossly normal Neck: supple, no JVD Respiratory/Chest: lungs clear, normal breath sounds, no respiratory distress Cardiovascular: regular rate, rhythm, no edema, no murmur, normal peripheral pulses Abdomen / GI: normal bowel sounds, non tender, soft Extremities: no calf tenderness, no pedal edema Neurologic/Psychiatric: no motor/sensory deficits, alert Skin: no rash Hospital Course HPI From admitting provider: 57 y/o F with complex medical history includes - renal transplant 1989, CAD, DM II, hypothyroidism, TAMARA, SLE, schizoaffective disorder. Presents fall secondary to her "knees giving out" and generalized weakness comprising of an inability to get back up. She denies palpitations or lightheaded/dizziness prior to fall and states she did not hit her head or sustain any other injury. She states this is not her first time her legs have given out, She admits to poor fluid intake.When EMS arrived they found the patient on the floor. The patient states she was unable to hold herself up when EMS helped her get up from the floor. In the ER, labs are significant for mild hyperkalemia without EKG changes, elevated creatinine from her baseline, evidence of dehydration and UA is positive for infection. The patient was recently admitted for a UTI. She reports she has been taking her antibiotics as prescribed. She denies dysuria, urgency, frequency, or discoloured or foul-smelling urine. She otherwise denies chest pain, shortness of breath, nausea, abdominal pain, fever or chills. HOSPITAL COURSE: Kecia was admitted to Med/Surg, and her blood culture grew out Enterococcus w/ multiple resistances, sensitive to Ertapenem. She displayed many behavioral issues and her behavioral contract was updated. At time of discharge, she agreed for an US guided peripheral IV site which was placed, and she was discharged home to complete 10 more days of IV Ertapenem at home. She will follow up with her PCP and Infectious Diseases. ESBL Urinary tract infection with bacteremia - Urine cx from 05/24/17: E Coli, multiple abx resistances, sensitive to Ertapenem - Blood cx from 05/25/17: Gram negative bacilli, sensitivities pending Borderline Personality Disorder / Schizoaffective Disorder - Appreciate Psych recommendations - Received a dose of Haldol 2mg PO, then refused all further medications - Behavioral contract was updated during her admission Acute on chronic renal insufficiency, likely pre-renal, improving - Baseline Cr 1.2, currently 1.12, was 2.37 on admission Generalized weakness - Pt declined PT evaluation Hx of renal transplant - Continue home mycophenolate and cyclosporine Type II DM, last A1c 8.5% in 2017 - A1c 7.8% Coronary artery disease - Continued aspirin, Imdur, Rosuvastatin, and Carvedilol Hypothyroidism - Continue Synthroid VTE: SCDs Dispo: Discharged home in good condition w/IV site for home Ertapenem. Strongly advised pt to get in touch w/the home nursing agency or return to ED if her IV site falls out. She says she has issues obtaining her home medications as well so may be worthwhile looking into mail order meds for her chronic medications. Code status: FULL Resident Physician Supervision Note: I interviewed and examined the patient. Discussed with Dr. Hannah and agree with findings and plan as documented in the note. Any exceptions or clarifications are listed here: None Patient is in about her usual state given her schizoaffective personality type, she is agreeable to have a peripheral IV placed to go home on IV ertapenem to complete approximately 10 additional days of treatment for multidrug-resistant UTI. She otherwise has no physical complaints Temperature 37 0 pulse 61 respiration rate 18 BP 160/75 examination finds her to be in good condition she appears in no distress she is awake and oriented This is a 57-year-old female with renal transplant and schizoaffective personality function presented with improvement in the urinary tract infection present on admission found to be multidrug resistant E. coli sensitive to ertapenem completing a two-week course in total, she did have one blood culture that was showing gram-negative bacteria and her course may be extended if her primary care physician feels appropriate to do so Documented By: Tray Vaca Total Time Spent: Greater than 30 minutes This includes examination of the patient, discharge planning, medication reconciliation, and communication with other providers. Discharge Instructions Please refer to the electronic Patient Visit Report (Discharge Instructions) for additional information. Follow-Up "Please, follow up at [facility]'s office on FridayJune 04 at 2: 10 pm. *This office is located in [address] of [facility] [place] building next to this hospital. If you need to change this appointment, call the office at [phone]. Please, follow up at [facility]'s Infectious Disease Office with Dr. Ruperto Cohen on FridayJune 04 at 3:30 pm. *This office is located in [address] of the [facility] [place] building next to this [facility]. THIS IS JUST DOWN THE ART FROM [facility] OFFICE. If you need to change this appointment, call the office at [phone]." Additional Copies To Ruperto oChen MD; Mikala Umana Resident Tracking Resident Involvement: Resident Care Provided Care Provided: Adult Hospital Medicine
[2017-05-27 15:14] VITALS: BP 163/75; PULSE 61; TEMP 37; O2SAT 96
== END 2017-05-27 17:46 | disposition home health service (06) | DRG 872 ==
LOC: EDBD 12:33 → C.EDA 12:34 → C.MS4W 18:10 → EEVIPCON 18:10 → CANRESERV 18:31 → ENRESERV 18:31
PROVIDERS: ADMIT Family Medicine; ATTEND Internal Medicine
DX: R78.81 Bacteremia (principal); N39.0 Urinary tract infection, site not specified; N17.9 Acute kidney failure, unspecified; Z94.0 Kidney transplant status; F41.9 Anxiety disorder, unspecified; F90.9 Attention-deficit hyperactivity disorder, unspecified type; F60.3 Borderline personality disorder; E11.9 Type 2 diabetes mellitus without complications; A49.8 Other bacterial infections of unspecified site; M81.0 Age-related osteoporosis without current pathological fracture; G47.33 Obstructive sleep apnea (adult) (pediatric); N18.3 Chronic kidney disease, stage 3 (moderate); E87.5 Hyperkalemia; K21.9 Gastro-esophageal reflux disease without esophagitis; E21.3 Hyperparathyroidism, unspecified; Z95.5 Presence of coronary angioplasty implant and graft; Z83.3 Family history of diabetes mellitus; Z82.49 Family history of ischemic heart disease and other diseases of the circulatory system; Z80.1 Family history of malignant neoplasm of trachea, bronchus and lung; Z79.82 Long term (current) use of aspirin; Z79.4 Long term (current) use of insulin; Z88.0 Allergy status to penicillin

== ENCOUNTER 2017-06-14 12:18 | Emergency (ER) | payer OTHER ==
[~2017-06-14 12:18] MED LIST changes: -CPR500 PO; -Glargine SQ; +INSDGIPEN SC; -LUTE20CA PO; +MULT-190 PO; +MULT-506 PO; -PROC1TAB5 PO; -SULF800T23 PO; -TMFUDL30 PO; -TRAM-10 PO
[2017-06-14 12:21] VITALS: TEMP 36.3
[2017-06-14] MEDS ORDERED: ONDANSETRON 8 MG/54 ML D5W IV STA (12:46)
[2017-06-14] MEDS ORDERED: SODIUM CHLORIDE 0.9% 1000ML 1,000 ML IV STA (12:46)
[2017-06-14 13:24] LABS: BASO % 0.4 %; BASO ABS # 0.04 K/uL (0-0.2); EOS % 0.1 %; EOS ABS # 0.01 K/uL (0-0.5); HEMATOCRIT 44.2 % (37-47); HEMOGLOBIN 15.4 g/dL (12.0-16.0); IG# 0.03 K/uL (0.00-0.02); LYMPH ABS # 1.53 K/uL (1.2-3.4); MEAN CELL VOLUME 88.8 fL (80-100); MEAN CORPUSCULAR HEMOGLOBIN 30.9 pg (25-34); MEAN CORPUSCULAR HGB CONC 34.8 g/dl (32-36); MEAN PLATELET VOLUME 9.4 fL (7.4-10.4); MONO % 9.3 %; MONO ABS # 0.95 K/uL (0.11-0.59); NEUT % 74.9 %; NEUT ABS # 7.62 K/uL (1.4-6.5); PLATELET COUNT 268 K/uL (130-400); RED CELL DISTRIBUTION WIDTH CV 14.7 % (11.5-14.5); RED CELL DISTRIBUTION WIDTH SD 47.3 fL (36.4-46.3); WHITE BLOOD COUNT 10.18 K/uL (4.8-10.8)
[2017-06-14 13:40] LABS: ALBUMIN 3.9 gm/dl (3.4-5.0); ALT/SGPT 32 U/L (12-78); BLOOD UREA NITROGEN 27 mg/dl (7-18); CALCIUM 9.9 mg/dl (8.5-10.1); CARBON DIOXIDE 21 mmol/L (21-32); CREATININE 1.62 mg/dl (0.60-1.20); GLUCOSE 186 mg/dl (70-99); LIPASE 116 U/L (73-393); POTASSIUM 4.7 mmol/L (3.5-5.1); SODIUM 135 mmol/L (136-145)
[2017-06-14 13:45] LABS: ALKALINE PHOSPHATASE 158 U/L (45-117); AST/SGOT 23 U/L (15-37); CKMB 1.3 ng/ml (0.5-3.6); TOTAL PROTEIN 9.3 gm/dl (6.4-8.2)
[2017-06-14] MEDS ORDERED: ONDA4TAB10 SL (14:34)
--- NOTE | 2017-06-14 14:35 | EMERGENCY ROOM VISIT NOTE ---
History Report prepared by Davidibnaomie: Alberto Caraballo Under the Supervision of: Dr. Db Macias D.O. First contact with patient: 12:40 Chief Complaint: PAIN (GENERALIZED) Stated Complaint: CHEST/BACK/SHOULDER/HIP PAIN History of Present Illness The patient is a 57 year old female who presents to the Emergency Room with complaints of worsening generalized pain that occurred 2 days ago. She states that she has chest, back, shoulder, hip pain, and gum pain which has been ongoing for several years. She complains of vomiting when she takes her medication. She denies taking nausea medication and states that she "does not have the money (park or credit) or time to drop by the drugstore". She states she did not take her Insulin prior to coming to the ED. She states that she takes Aspirin (81 mg). She states minimal improvement with Tylenol and the she feels nauseous from taking several tablets. The patient states she called [facility] last night and this morning and was referred to come to the ED. She states that she requested pain medication for the car ride from [place] to [place] for her appointments but her [employer]TER declined. Per nursing staff, the patient called 911 several times and also called [facility] and started screaming but hung up because her phone ran out of batteries. She denies any recent activity and states she has been sitting on her couch. She denies trauma. Source of History: patient, nursing staff Onset: 6 hours ago Position: chest, shoulder, pelvis, back, other (gum pain) Symptom Intensity: pain rated 0/10 Quality: ache Timing: worsening Modifying Factors (Relieving): tylenol (minimal improvement) Associated Symptoms: + nausea Note: Patient denies trauma. Review of Systems See HPI for pertinent positives & negatives. A total of 10 systems reviewed and were otherwise negative. Past Medical & Surgical Medical Problems: (1) Anxiety (2) Attention deficit hyperactivity disorder (3) Benign hypertension (4) Borderline personality disorder (5) Cerebrovascular disease (6) Coronary artery disease (7) Diabetes mellitus type 2 (8) Gastroesophageal reflux disease (9) Hyperparathyroidism (10) Kidney transplant status, cadaveric (11) Major depression, recurrent (12) MDRO (multiple drug resistant organisms) resistance (13) Osteoporosis (14) Schizoaffective disorder (15) Sleep apnea (16) Systemic lupus erythematosus (17) Urinary tract infection due to extended-spectrum beta lactamase (ESBL) producing Escherichia coli Surgical Problems: (1) Status post coronary artery stent placement (2) Status post kidney transplant (3) Status post parathyroidectomy Family History FH: dementia MOTHER FH: diabetes mellitus SISTER GRANDMOTHER FH: heart disease FATHER MOTHER FH: lung cancer FATHER FH: rheumatoid arthritis SISTER FHx: heart disease Social History Smoking Status: Never Smoker Alcohol Use: none Drug Use: none Marital Status: single Housing Status: lives alone Occupation Status: disabled Current/Historical Medications Scheduled Aspirin (Aspirin), 1 TAB PO DAILY Baclofen (Lioresal), 10 MG PO TID Carvedilol (Coreg), 25 MG PO DAILY Cyclosporine (Neoral), 50 MG PO BID Dexlansoprazole (Dexilant), 30 MG PO DAILY Duloxetine HCl (Cymbalta), 1 CAP PO DAILY Ergocalciferol (Vitamin D 60760 Unit), 1 CAP PO WK Famotidine (Pepcid), 20 MG PO TID Gabapentin (Neurontin), 1 CAP PO TID Insulin Glargine (Lantus Solostar), 20 UNITS SC QAM Isosorbide Mononitrate Ext Rel (Imdur Ext Rel), 60 MG PO QAM Liraglutide (Victoza), 1.8 MG SQ DAILY Lisinopril (Zestril), 5 MG PO DAILY Multivitamin (Multivitamin), 1 TAB PO DAILY Mycophenolate Mofetil (Cellcept), 1 CAP PO BID Ocuvite Preservision (Ocuvite Preservision), 1 TAB PO DAILY Ondasetron Odt (Zofran Odt), 4 MG SL Q6H Rosuvastatin Calcium (Crestor), 1 TAB PO DAILY Temazepam (Restoril), 15 MG PO HS Scheduled PRN Nitroglycerin (Nitrostat), 1 TAB SL UD PRN for Chest Pain Allergies Coded Allergies: Penicillins (Verified Allergy, Mild, ITCHY, ANXIETY, 05/24/17) Loperamide (Verified Allergy, Unknown, 02/27/17) Vancomycin (Verified Allergy, Unknown, 02/27/17) Ziprasidone (Verified Allergy, Unknown, itching, 02/27/17) Physical Exam Vital Signs Date Time Temp Pulse Resp B/P (MAP) Pulse Ox O2 Delivery O2 Flow Rate FiO2 06/14/17 14:14 77 18 159/96 92 Room Air 06/14/17 12:21 36.3 103 20 151/105 99 Room Air Physical Exam CONSTITUTIONAL/VITAL SIGNS: Reviewed / noted above. GENERAL: Non-toxic in appearance. INTEGUMENTARY: Warm, dry, and [place]. HEAD: Normocephalic. EYES: without scleral icterus or trauma. ENT/OROPHARYNX: Smell of ketones on breath. Clear and moist. LYMPHADENOPATHY/NECK: Is supple without lymphadenopathy or meningismus. RESPIRATORY: Lungs clear and equal. CARDIOVASCULAR: Regular rate and rhythm. GI/ABDOMEN: Soft and nontender. No organomegaly or pulsatile mass. No rebound or guarding. Normal bowel sounds. EXTREMITIES: Warm and well perfused. BACK: No CVA tenderness. NEUROLOGICAL: Intact without focal deficits. PSYCHIATRIC: normal affect. MUSCULOSKELETAL: Normally developed with good muscle tone. Medical Decision & Procedures Laboratory Results 06/14/17 13:11 Red Blood Count 4.98, Mean Corpuscular Volume 88.8, Mean Corpuscular Hemoglobin 30.9, Mean Corpuscular Hemoglobin Concent 34.8, Mean Platelet Volume 9.4, Neutrophils (%) (Auto) 74.9, Lymphocytes (%) (Auto) 15.0, Monocytes (%) (Auto) 9.3, Eosinophils (%) (Auto) 0.1, Basophils (%) (Auto) 0.4, Neutrophils # (Auto) 7.62, Lymphocytes # (Auto) 1.53, Monocytes # (Auto) 0.95, Eosinophils # (Auto) 0.01, Basophils # (Auto) 0.04 06/14/17 13:11 Test 06/14/17 13:11 White Blood Count 10.18 K/uL (4.8-10.8) Red Blood Count 4.98 M/uL (4.2-5.4) Hemoglobin 15.4 g/dL (12.0-16.0) Hematocrit 44.2 % (37-47) Mean Corpuscular Volume 88.8 fL (80-100) Mean Corpuscular Hemoglobin 30.9 pg (25-34) Mean Corpuscular Hemoglobin Concent 34.8 g/dl (32-36) Platelet Count 268 K/uL (130-400) Mean Platelet Volume 9.4 fL (7.4-10.4) Neutrophils (%) (Auto) 74.9 % Lymphocytes (%) (Auto) 15.0 % Monocytes (%) (Auto) 9.3 % Eosinophils (%) (Auto) 0.1 % Basophils (%) (Auto) 0.4 % Neutrophils # (Auto) 7.62 K/uL (1.4-6.5) Lymphocytes # (Auto) 1.53 K/uL (1.2-3.4) Monocytes # (Auto) 0.95 K/uL (0.11-0.59) Eosinophils # (Auto) 0.01 K/uL (0-0.5) Basophils # (Auto) 0.04 K/uL (0-0.2) RDW Standard Deviation 47.3 fL (36.4-46.3) RDW Coefficient of Variation 14.7 % (11.5-14.5) Immature Granulocyte % (Auto) 0.3 % Immature Granulocyte # (Auto) 0.03 K/uL (0.00-0.02) Anion Gap 11.0 mmol/L (3-11) Estimated GFR () 40.1 Estimated GFR (Non- 34.6 BUN/Creatinine Ratio 16.4 (10-20) Calcium Level 9.9 mg/dl (8.5-10.1) Total Bilirubin 0.7 mg/dl (0.2-1) Direct Bilirubin 0.2 mg/dl (0-0.2) Aspartate Amino Transf (AST/SGOT) 23 U/L (15-37) Alanine Aminotransferase (ALT/SGPT) 32 U/L (12-78) Alkaline Phosphatase 158 U/L (45-117) Total Creatine Kinase 53 U/L (26-192) Creatine Kinase MB 1.3 ng/ml (0.5-3.6) Creatine Kinase MB Ratio 2.5 (0-3.0) Total Protein 9.3 gm/dl (6.4-8.2) Albumin 3.9 gm/dl (3.4-5.0) Lipase 116 U/L (73-393) Laboratory results as stated above per my review. Medications Administered Medications (Trade) Dose Ordered Sig/Suyapa Route Start Time Stop Time Status Last Admin Dose Admin Sodium Chloride 1,000 ml @ 999 mls/hr Q1H1M STAT IV 06/14/17 12:46 06/14/17 13:46 DC 3/24/18 12:46 999 MLS/HR Ondansetron HCl (Zofran 8mg Iv) 8 mg NOW STAT IV 06/14/17 12:46 06/14/17 12:49 DC 06/14/17 14:17 8 MG ED Course 1240: Previous medical records were reviewed. The patient was evaluated in room A8. A complete history and physical examination was performed. 1246: Zofran 8 mg IV; Sodium Chloride 1000 ml @ 999 mls/hr IV. 1400: The patient refused her chest X Ray. 1417: I checked on the patient and informed her on the results of her lab tests. I told her that she was dehydrated. 1433: On reevaluation, the patient is resting comfortably. I discussed the results and findings with the patient. She verbalized agreement of the treatment plan. She was discharged home. Medical Decision Differential diagnosis: Etiologies such as gastroenteritis, food borne illness, infections, appendicitis , diverticulitis, inflammatory bowel disease, obstruction, GI bleed, biliary pathology, as well as others were entertained. This is a 57-year-old female who presents to the ED with a chief complaint of shoulder pain, back pain and hip pain. The patient states that she has had this pain for several years. She called the [place] clinic yesterday and was told to come in for evaluation today. Today she called and they were close. She came here instead. The patient does report vomiting over the past 2 days. She has no other specific complaints. Denies any abdominal pains, chest pains or shortness of breath. She has not had a fever. Her physical exam was positive for some ketones on her breath but otherwise no significant abnormalities. Abdomen is soft and nontender. The patient's CBC was unremarkable as was her chemistry panel with exception of a BUN of 27 and creatinine of 1.6. Glucose is 186. She is a diabetic. She was treated with IV Zofran and IV fluids. She was given 1 L normal saline and 4 mg of IV Zofran. On reassessment, she was felt to be stable for discharge. Medication Reconcilliation Current Medication List: was personally reviewed by me Blood Pressure Screening Patient's blood pressure: Elevated blood pressure Blood pressure disposition: Elevated BP felt to be situational Impression Primary Impression: Nausea & vomiting Additional Impression: Dehydration Scribe Attestation The scribe's documentation has been prepared under my direction and personally reviewed by me in its entirety. I confirm that the note above accurately reflects all work, treatment, procedures, and medical decision making performed by me. Departure Information Dispostion Home / Self-Care Prescriptions Ondasetron Odt (ZOFRAN ODT) 4 Mg Tab 4 MG SL Q6H for Nausea, #10 TAB Prov: Db Macias D.O. 06/14/17 Referrals Mikala Vásquez (PCP) Patient Instructions My [facility] Additional Instructions Increase daily fluids. Zofran: Allow one tablet to dissolve under the tongue every 6 hours as needed for nausea or vomiting. Sent to [facility]. Pick this up today. Problem Qualifiers
[2017-06-14 14:50] VITALS: BP 159/96; PULSE 77; O2SAT 92
== END 2017-06-14 14:53 | disposition home or self-care (01) ==
LOC: C.EDB 12:19 → C.EDA 14:53
DX: E86.0 Dehydration (principal); Z79.82 Long term (current) use of aspirin; Z79.4 Long term (current) use of insulin; Z79.899 Other long term (current) drug therapy; F41.9 Anxiety disorder, unspecified; F90.9 Attention-deficit hyperactivity disorder, unspecified type; I10 Essential (primary) hypertension; F60.3 Borderline personality disorder; I25.10 Atherosclerotic heart disease of native coronary artery without angina pectoris; E11.9 Type 2 diabetes mellitus without complications; K21.9 Gastro-esophageal reflux disease without esophagitis; Z94.0 Kidney transplant status; F32.9 Major depressive disorder, single episode, unspecified; M81.0 Age-related osteoporosis without current pathological fracture; F25.9 Schizoaffective disorder, unspecified; G47.30 Sleep apnea, unspecified; M32.9 Systemic lupus erythematosus, unspecified; Z87.440 Personal history of urinary (tract) infections; E89.2 Postprocedural hypoparathyroidism; Z95.5 Presence of coronary angioplasty implant and graft; Z83.3 Family history of diabetes mellitus; Z80.1 Family history of malignant neoplasm of trachea, bronchus and lung; Z82.61 Family history of arthritis; Z88.0 Allergy status to penicillin; Z88.8 Allergy status to other drugs, medicaments and biological substances

== ENCOUNTER 2017-06-20 00:43 | Inpatient (IN) | payer OTHER ==
[~2017-06-20] VITALS: Ht 165.1 cm; Wt 75.0 kg
[~2017-06-20 00:43] MED LIST changes: +ONDA4TAB10 SL
[2017-06-20] MEDS ORDERED: SODIUM CHLORIDE 0.9% 500ML 500 ML IV STA ×2 (01:09→02:10)
[2017-06-20] MEDS ORDERED: DICYCLOMINE HCL 10 MG/ML 2 ML AMP IM ONE (01:15)
[2017-06-20] MEDS ORDERED: DICL1GEL12 TD (01:19)
[2017-06-20] MEDS ORDERED: ONDA4TAB10 SL (01:24)
[2017-06-20 01:41] LABS: BASO % 0.2 %; BASO ABS # 0.04 K/uL (0-0.2); EOS % 0.3 %; EOS ABS # 0.06 K/uL (0-0.5); HEMOGLOBIN 13.6 g/dL (12.0-16.0); IG# 0.07 K/uL (0.00-0.02); LYMPH % 16.8 %; LYMPH ABS # 2.89 K/uL (1.2-3.4); MEAN CELL VOLUME 90.3 fL (80-100); MEAN CORPUSCULAR HEMOGLOBIN 30.7 pg (25-34); MEAN PLATELET VOLUME 9.6 fL (7.4-10.4); MONO % 10.4 %; MONO ABS # 1.79 K/uL (0.11-0.59); NEUT % 71.9 %; NEUT ABS # 12.35 K/uL (1.4-6.5); PLATELET COUNT 231 K/uL (130-400); RED CELL DISTRIBUTION WIDTH CV 14.9 % (11.5-14.5); RED CELL DISTRIBUTION WIDTH SD 48.5 fL (36.4-46.3)
[2017-06-20 02:10] LABS: ALBUMIN 3.5 gm/dl (3.4-5.0); CALCIUM 8.9 mg/dl (8.5-10.1); CREATININE 2.42 mg/dl (0.60-1.20); POTASSIUM 4.1 mmol/L (3.5-5.1); TOTAL PROTEIN 8.1 gm/dl (6.4-8.2)
--- NOTE | 2017-06-20 03:32 | History and Physical ---
History & Physical Date & Time of Service: Jun 20, 2017 at 03:29 Chief Complaint: Diarrhea,Not Producing And Urine Primary Care Physician: Mikala Vásquez History of Present Illness Source: patient 57 y/o F with complex medical history includes - renal transplant 1989, CAD, DM2 , HTN, hypothyroidism, TAMARA, SLE, recent Enterococcus bacteremia, schizoaffective disorder presents to the ER with chills and diarrhea x 1 day. Patient was recently discharged from [facility] with enterococcus bacteremia from a UTI and required 10 days of IV Ertapanem. Patient reports decreased urine output despite drinking a lot of water today. Last urination pt believes was one day prior. She denies dysuria or hematuria. She is at present unable to give us a urine sample. Pt cannot recall if her Enterococcal Bacteremia presented with dysuria. From H&P on 05/24/2017 pt "She denies dysuria, urgency, frequency, or discoloured or foul-smelling urine. She otherwise denies chest pain, shortness of breath, nausea, abdominal pain, fever or chills." Pt states that she had two loose BM today each BM occurred after eating. She denies any blood in the BM. Patient denies any recent travel or eating any foods out of the ordinary. Patient has HTN but noted in the ER to be hypotensive. Patient has a history of a renal transplant. Past Medical/Surgical History Medical Problems: (1) Acute kidney injury (2) Anxiety (3) Attention deficit hyperactivity disorder (4) Benign hypertension (5) Borderline personality disorder (6) Cerebrovascular disease (7) Chest pain (8) Coronary artery disease (9) Dehydration (10) Dehydration (11) Diabetes mellitus type 2 (12) Diarrhea (13) Gastroesophageal reflux disease (14) Generalized weakness (15) Hyperparathyroidism (16) Immunosuppression (17) Influenza A (18) Kidney transplant status, cadaveric (19) Lower abdominal pain (20) Major depression, recurrent (21) MDRO (multiple drug resistant organisms) resistance (22) Medication refill (23) Medication refill (24) Mood disorder (25) Nausea (26) Nausea (27) Nausea & vomiting (28) Odontalgia (29) Osteoporosis (30) Renal insufficiency (31) Schizoaffective disorder (32) Sepsis (33) Sleep apnea (34) Systemic lupus erythematosus (35) Thrombocytopenia (36) Urinary tract infection (37) Urinary tract infection due to extended-spectrum beta lactamase (ESBL) producing Escherichia coli (38) UTI (urinary tract infection) (39) UTI (urinary tract infection) (40) UTI (urinary tract infection) (41) UTI (urinary tract infection) (42) Vomiting (43) Weakness Surgical Problems: (1) Status post coronary artery stent placement (2) Status post kidney transplant (3) Status post parathyroidectomy Family History FH: dementia MOTHER FH: diabetes mellitus SISTER GRANDMOTHER FH: heart disease FATHER MOTHER FH: lung cancer FATHER FH: rheumatoid arthritis SISTER FHx: heart disease Social History Smoking Status: Never Smoker Drug Use: none Marital Status: single Housing status: lives alone Occupational Status: disabled Immunizations History of Influenza Vaccine: Yes History of Tetanus Vaccine?: Unknown History of Pneumococcal: Yes Pneumococcal Date: Jun 23, 2001 History of Hepatitis B Vaccine: Unknown Allergies Coded Allergies: Penicillins (Verified Allergy, Mild, ITCHY, ANXIETY, 06/20/17) Loperamide (Verified Allergy, Unknown, 06/20/17) Vancomycin (Verified Allergy, Unknown, 06/20/17) Ziprasidone (Verified Allergy, Unknown, itching, 06/20/17) Home Medications Scheduled Aspirin (Aspirin), 1 TAB PO DAILY Baclofen (Lioresal), 10 MG PO TID Carvedilol (Coreg), 25 MG PO DAILY Cyclosporine (Neoral), 50 MG PO BID Dexlansoprazole (Dexilant), 30 MG PO DAILY Diclofenac Sodium (Topical) (Voltaren 1% Top Gel), 2-4 GM TD QID Duloxetine HCl (Cymbalta), 1 CAP PO DAILY Ergocalciferol (Vitamin D 67297 Unit), 1 CAP PO WK Famotidine (Pepcid), 20 MG PO TID Gabapentin (Neurontin), 1 CAP PO TID Insulin Glargine (Lantus Solostar), 20 UNITS SC QAM Isosorbide Mononitrate Ext Rel (Imdur Ext Rel), 60 MG PO QAM Liraglutide (Victoza), 1.8 MG SQ DAILY Lisinopril (Zestril), 5 MG PO DAILY Multivitamin (Multivitamin), 1 TAB PO DAILY Mycophenolate Mofetil (Cellcept), 1 CAP PO BID Ocuvite Preservision (Ocuvite Preservision), 1 TAB PO DAILY Rosuvastatin Calcium (Crestor), 1 TAB PO DAILY Temazepam (Restoril), 15 MG PO HS Scheduled PRN Nitroglycerin (Nitrostat), 1 TAB SL UD PRN for Chest Pain Ondasetron Odt (Zofran Odt), 4 MG SL Q6H PRN for Nausea Physical Exam Vital Signs Date Time Temp Pulse Resp B/P (MAP) Pulse Ox O2 Delivery O2 Flow Rate FiO2 06/20/17 02:52 84 24 124/95 97 Room Air 06/20/17 01:36 Room Air 06/20/17 00:49 36.4 95 20 99/64 97 Room Air General Appearance: WD/WN, + moderate distress Head: normocephalic, atraumatic Eyes: normal inspection, PERRL ENT: normal ENT inspection Neck: supple Respiratory/Chest: chest non-tender, lungs clear, normal breath sounds, no accessory muscle use, + pertinent finding (patient has short shallow breaths. ) Cardiovascular: regular rate, rhythm, no edema, no gallop, no JVD, no murmur, normal peripheral pulses Abdomen/GI: normal bowel sounds, non tender, soft, no pulsatile mass, normal rectal exam Back: normal inspection, no CVA tenderness, no muscle spasm Extremities/Musculoskelatal: normal inspection, no calf tenderness, no pedal edema Neurologic/Psych: sandwich maker II-XII nml as tested, no motor/sensory deficits, alert, normal mood/affect, normal reflexes, oriented x 3 Skin: normal color, no rash Diagnostics Laboratory Results Results Past 24 Hours Test 06/20/17 01:20 Range/Units White Blood Count 17.20 4.8-10.8 K/uL Red Blood Count 4.43 4.2-5.4 M/uL Hemoglobin 13.6 12.0-16.0 g/dL Hematocrit 40.0 37-47 % Mean Corpuscular Volume 90.3 80-100 fL Mean Corpuscular Hemoglobin 30.7 25-34 pg Mean Corpuscular Hemoglobin Concent 34.0 32-36 g/dl Platelet Count 231 130-400 K/uL Mean Platelet Volume 9.6 7.4-10.4 fL Neutrophils (%) (Auto) 71.9 % Lymphocytes (%) (Auto) 16.8 % Monocytes (%) (Auto) 10.4 % Eosinophils (%) (Auto) 0.3 % Basophils (%) (Auto) 0.2 % Neutrophils # (Auto) 12.35 1.4-6.5 K/uL Lymphocytes # (Auto) 2.89 1.2-3.4 K/uL Monocytes # (Auto) 1.79 0.11-0.59 K/uL Eosinophils # (Auto) 0.06 0-0.5 K/uL Basophils # (Auto) 0.04 0-0.2 K/uL RDW Standard Deviation 48.5 36.4-46.3 fL RDW Coefficient of Variation 14.9 11.5-14.5 % Immature Granulocyte % (Auto) 0.4 % Immature Granulocyte # (Auto) 0.07 0.00-0.02 K/uL Sodium Level 133 136-145 mmol/L Potassium Level 4.1 3.5-5.1 mmol/L Chloride Level 99 98-107 mmol/L Carbon Dioxide Level 23 21-32 mmol/L Anion Gap 11.0 3-11 mmol/L Blood Urea Nitrogen 39 7-18 mg/dl Creatinine 2.42 0.60-1.20 mg/dl Est Creatinine Clear Calc Drug Dose 26.0 ml/min Estimated GFR () 24.7 Estimated GFR (Non- 21.3 BUN/Creatinine Ratio 16.2 10-20 Random Glucose 229 70-99 mg/dl Calcium Level 8.9 8.5-10.1 mg/dl Magnesium Level 1.6 1.8-2.4 mg/dl Total Bilirubin 0.6 0.2-1 mg/dl Direct Bilirubin 0-0.2 mg/dl Aspartate Amino Transf (AST/SGOT) 22 15-37 U/L Alanine Aminotransferase (ALT/SGPT) 29 12-78 U/L Alkaline Phosphatase 120 45-117 U/L Total Protein 8.1 6.4-8.2 gm/dl Albumin 3.5 3.4-5.0 gm/dl Lipase 266 73-393 U/L Chemistry Specimen Hemolysis Diagnostic Radiology CHEST X-RAY - Appears normal, await official read. UA PENDING BLOOD CULTURES PENDING Impression Assessment and Plan 57F with complex medical history includes - renal transplant 1989, CAD, DM2, HTN , hypothyroidism, TAMARA, SLE, recent Enterococcus bacteremia, schizoaffective disorder presents to the ER with chills and diarrhea x 1 day. Pt appears ill and is tachypneic with a WBC count of 18,000. At present X-ray, Lactate, UA and Blood cultures are pending. Patient was recently discharged from [facility] ESBL bacteremia from a UTI and required 10 days of IV Ertapanem. From chart review pt denies any urinary symptoms at her previous admission. Acute kidney injury on bkgd CKD with evidence of dehydration Creatinine 2.42, baseline 1.2 IVF 1L of NSS @ 115ml/hr - reassess for further hydration in AM Encourage PO intake of fluids Await UA Had recent renal US that was grossly normal. Possible Sepsis, SOURCE UNKNOWN, likely URINE or GI. Pt appears ill with an elevated WBC. Cultures from 05/24/2017 had E. Coli Bacteremia sensitive to Ertapanem, Amikacin and Carbapenem. Follow up Lactate, Procal, UA. Follow up stool C. Diff toxin, stool cultures, Rotavirus toxin. Renal transplant Continue mycophenolate and cyclosporine. c/w Lisinopril despite normotensive BPs. DM2 Continue Lantus 20u SC qAM Hold Victoza. CAD Continue ASA, Imdur, rosuvastatin, carvedilol. Schizoaffective and borderline personality Continue home regimen: duloxetine and temazepam DVT Proph Hep SQ BID Diet: DM2 Diet. FULL CODE Resuscitation Status VTE Prophylaxis Will order VTE Prophylaxis: Yes Resident Involvement: Resident Care Provided Care Provided: Adult Hospital Medicine Reviewed: Pt Seen/Exam by Me History Patient seen and examined, chart reviewed, case discussed with Dr. Mo and I agree with his assessment and plan as documented above. Briefly, patient is a 57yo C female s/p renal transplant on immunosuppressive therapy, recent E.coli bacteremia s/p treatment with IV Ertapenem presenting with diarrhea, shaking and decreased UOP. Concern for sepsis, unclear source. On physical exam patient is ill appearing, tachypnic in NAD. Hear and lungs are clear, abdomen benign, no tenderness over transplant, remainder of exam unremarkable. Labs significant for elevated WBC and lactate, creatinine of 2.42. Will admit to medical floor for workup of sepsis, panculture. IVF hydration.
[2017-06-20] MEDS ORDERED: SODIUM CHLORIDE 0.9% 1000ML 1,000 ML IV STA (03:58)
--- NOTE | 2017-06-20 04:09 | EMERGENCY ROOM VISIT NOTE ---
History First contact with patient: 00:58 Chief Complaint: DIARRHEA Stated Complaint: DIARRHEA,NOT PRODUCING AND URINE Nursing Triage Summary: Patient states "right after I ate lunch I had really bad diarrhea. I haven't produced any urine today so I was drinking a whole lot, I thought maybe I was dehydrated. I ate soup for supper and 5 minutes later I had really bad diarrhea." Patient notes lower back pain. Patient called wing coverer and was told to come to ED. History of Present Illness The patient is a 57 year old female who presents to the Emergency Room with complaints of nausea and diarrhea for the past day. She is unsure if she has had recent antibiotics. No well water. Patient states she has had numerous episodes of diarrhea that is nonbloody non-black and tarry in nature. Patient states she has had very little urine output today. No bad food exposure. Patient denies abdominal pain, chest pain, dyspnea, fever, chills, vomiting, back pain, dysuria, hematuria. She has a distant history of a renal transplant. Review of Systems An 10 system review of systems was completed with positives and pertinent negatives listed in the HPI. Past Medical/Surgical History Medical Problems: (1) Anxiety (2) Attention deficit hyperactivity disorder (3) Benign hypertension (4) Borderline personality disorder (5) Cerebrovascular disease (6) Coronary artery disease (7) Diabetes mellitus type 2 (8) Gastroesophageal reflux disease (9) Hyperparathyroidism (10) Kidney transplant status, cadaveric (11) Major depression, recurrent (12) MDRO (multiple drug resistant organisms) resistance (13) Osteoporosis (14) Schizoaffective disorder (15) Sleep apnea (16) Systemic lupus erythematosus (17) Urinary tract infection due to extended-spectrum beta lactamase (ESBL) producing Escherichia coli Surgical Problems: (1) Status post coronary artery stent placement (2) Status post kidney transplant (3) Status post parathyroidectomy Family History FH: dementia MOTHER FH: diabetes mellitus SISTER GRANDMOTHER FH: heart disease FATHER MOTHER FH: lung cancer FATHER FH: rheumatoid arthritis SISTER FHx: heart disease Social History Smoking Status: Never Smoker Alcohol Use: none Drug Use: none Marital Status: single Housing Status: lives alone Occupation Status: disabled Current/Historical Medications Scheduled Aspirin (Aspirin), 1 TAB PO DAILY Baclofen (Lioresal), 10 MG PO TID Carvedilol (Coreg), 25 MG PO DAILY Cyclosporine (Neoral), 50 MG PO BID Dexlansoprazole (Dexilant), 30 MG PO DAILY Diclofenac Sodium (Topical) (Voltaren 1% Top Gel), 2-4 GM TD QID Duloxetine HCl (Cymbalta), 1 CAP PO DAILY Ergocalciferol (Vitamin D 40407 Unit), 1 CAP PO WK Famotidine (Pepcid), 20 MG PO TID Gabapentin (Neurontin), 1 CAP PO TID Insulin Glargine (Lantus Solostar), 20 UNITS SC QAM Isosorbide Mononitrate Ext Rel (Imdur Ext Rel), 60 MG PO QAM Liraglutide (Victoza), 1.8 MG SQ DAILY Lisinopril (Zestril), 5 MG PO DAILY Multivitamin (Multivitamin), 1 TAB PO DAILY Mycophenolate Mofetil (Cellcept), 1 CAP PO BID Ocuvite Preservision (Ocuvite Preservision), 1 TAB PO DAILY Rosuvastatin Calcium (Crestor), 1 TAB PO DAILY Temazepam (Restoril), 15 MG PO HS Scheduled PRN Nitroglycerin (Nitrostat), 1 TAB SL UD PRN for Chest Pain Ondasetron Odt (Zofran Odt), 4 MG SL Q6H PRN for Nausea Physical Exam Vital Signs Date Time Temp Pulse Resp B/P (MAP) Pulse Ox O2 Delivery O2 Flow Rate FiO2 06/20/17 02:52 84 24 124/95 97 Room Air 06/20/17 01:36 Room Air 06/20/17 00:49 36.4 95 20 99/64 97 Room Air Physical Exam VITALS: Vitals are noted on the nurse's note and reviewed by myself. Vital signs mildly hypotensive. GENERAL: pleasant female, in no acute distress, nondiaphoretic, well-developed well-nourished. SKIN: The skin was without rashes, erythema, edema, or bruising. There is no tenting of the skin. Capillary reflex less than 2 seconds. HEAD: Normocephalic atraumatic. EARS: External auditory canals clear, tympanic membranes pearly rome without erythema or effusion bilaterally. EYES: Pupils equal round and reactive to light and accommodation. Conjunctivae without injection, sclerae without icterus. Extraocular movements intact. NOSE: Patent, turbinates without inflammation or discharge. MOUTH: Mucous membranes mildly dry. Pharynx without erythema or exudate. Uvula midline. Airway patent. Tongue does not deviate. NECK: Supple without nuchal rigidity. No lymphadenopathy. No thyromegaly. Cervical spine is nontender. No JVD. HEART: Regular rate and rhythm without murmurs gallops or rubs. LUNGS: Clear to auscultation bilaterally without wheezes, rales or rhonchi. No retractions or accessory muscle use. ABDOMEN: Positive bowel sounds x 4. Normal tympanic percussion. Soft, nontender, without masses or organomegaly. Easley sign negative. No guarding or rebound tenderness. No CVA tenderness MUSCULOSKELETAL: No muscle atrophy, erythema, or edema noted. NEURO: Patient was alert and oriented to person place and time. Normal sensation to light and sharp touch. No focal neurological deficits. Medical Decision & Procedures Laboratory Results 06/20/17 01:20 Red Blood Count 4.43, Mean Corpuscular Volume 90.3, Mean Corpuscular Hemoglobin 30.7, Mean Corpuscular Hemoglobin Concent 34.0, Mean Platelet Volume 9.6, Neutrophils (%) (Auto) 71.9, Lymphocytes (%) (Auto) 16.8, Monocytes (%) (Auto) 10.4, Eosinophils (%) (Auto) 0.3, Basophils (%) (Auto) 0.2, Neutrophils # (Auto ) 12.35, Lymphocytes # (Auto) 2.89, Monocytes # (Auto) 1.79, Eosinophils # (Auto ) 0.06, Basophils # (Auto) 0.04 06/20/17 01:20 Test 06/20/17 01:20 White Blood Count 17.20 K/uL (4.8-10.8) Red Blood Count 4.43 M/uL (4.2-5.4) Hemoglobin 13.6 g/dL (12.0-16.0) Hematocrit 40.0 % (37-47) Mean Corpuscular Volume 90.3 fL (80-100) Mean Corpuscular Hemoglobin 30.7 pg (25-34) Mean Corpuscular Hemoglobin Concent 34.0 g/dl (32-36) Platelet Count 231 K/uL (130-400) Mean Platelet Volume 9.6 fL (7.4-10.4) Neutrophils (%) (Auto) 71.9 % Lymphocytes (%) (Auto) 16.8 % Monocytes (%) (Auto) 10.4 % Eosinophils (%) (Auto) 0.3 % Basophils (%) (Auto) 0.2 % Neutrophils # (Auto) 12.35 K/uL (1.4-6.5) Lymphocytes # (Auto) 2.89 K/uL (1.2-3.4) Monocytes # (Auto) 1.79 K/uL (0.11-0.59) Eosinophils # (Auto) 0.06 K/uL (0-0.5) Basophils # (Auto) 0.04 K/uL (0-0.2) RDW Standard Deviation 48.5 fL (36.4-46.3) RDW Coefficient of Variation 14.9 % (11.5-14.5) Immature Granulocyte % (Auto) 0.4 % Immature Granulocyte # (Auto) 0.07 K/uL (0.00-0.02) Anion Gap 11.0 mmol/L (3-11) Est Creatinine Clear Calc Drug Dose 26.0 ml/min Estimated GFR () 24.7 Estimated GFR (Non- 21.3 BUN/Creatinine Ratio 16.2 (10-20) Calcium Level 8.9 mg/dl (8.5-10.1) Magnesium Level 1.6 mg/dl (1.8-2.4) Total Bilirubin 0.6 mg/dl (0.2-1) Direct Bilirubin mg/dl (0-0.2) Aspartate Amino Transf (AST/SGOT) 22 U/L (15-37) Alanine Aminotransferase (ALT/SGPT) 29 U/L (12-78) Alkaline Phosphatase 120 U/L (45-117) Total Protein 8.1 gm/dl (6.4-8.2) Albumin 3.5 gm/dl (3.4-5.0) Lipase 266 U/L (73-393) Chemistry Specimen Hemolysis Medications Administered Medications (Trade) Dose Ordered Sig/Suyapa Route Start Time Stop Time Status Last Admin Dose Admin Sodium Chloride 500 ml @ 999 mls/hr Q31M STAT IV 06/20/17 01:09 06/20/17 01:39 DC 06/20/17 01:09 999 MLS/HR Sodium Chloride 500 ml @ 999 mls/hr Q31M STAT IV 06/20/17 02:10 06/20/17 02:40 DC 06/20/17 02:10 999 MLS/HR ED Course Prior records/ancillary studies reviewed. Triage Nursing notes reviewed. Additional history obtained from the family. The patient's history was concerning for nausea and diarrhea Differential diagnosis: Etiologies such as gastroenteritis, food borne illness, infections, appendicitis , diverticulitis, inflammatory bowel disease, obstruction, GI bleed, biliary pathology, as well as others were entertained. Physical examination findings: As above. Abdominal examination revealed no tenderness. Vital signs reviewed and revealed stable. ER treatment provided: IV hydration 1 L NSS. Bentyl On reassessment the patient felt better. Patient was tolerating p.o. intake. Diagnostics interpretation by me: The labs revealed leukocytosis, elevated creatinine Consultation: A consultation was placed with the [facility] hospitalist, Dr Leo. The case was discussed and diagnostics were reviewed. The patient was evaluated in the ER for further treatment. This appears to be consistent with IRIS, diarrhea and dehydration. Patient was unable to give a stool specimen. This is pending at time of admission. Patient 's creatinine has doubled from baseline. She has had multiple episodes of diarrhea. She will be evaluated by medicine. Patient is agreeable to treatment plan. By the evaluation outlined above emergent etiologies such as appendicitis, diverticulitis, obstruction, cardiac sources, mesenteric ischemia , aortic pathology, inflammatory bowel disease, renal colic, PUD, biliary pathology, UTI, as well as others were deemed relatively unlikely. The pt informed about the findings as listed above. All questions were answered and pleased with the treatment. Case reviewed with my attending The chart was completed utilizing [employer] Speech voice recognition software. Grammatical errors, random word insertions, pronoun errors, and incomplete sentences are an occassional consequence of this system due to software limitations, ambient noise, and hardware issues. Any formal questions or concerns about the content, text, or information contained within the body of this dictation should be directly addressed to the physician graduate research assistant for clarification. Medical Decision as above Medication Reconcilliation Current Medication List: was personally reviewed by me Blood Pressure Screening Patient's blood pressure: Normal blood pressure Impression Primary Impression: Acute kidney injury Additional Impressions: Dehydration Acute diarrhea Departure Information Dispostion Being Evaluated By Hospitalist Condition FAIR Referrals Fahad, Mikala C.R.N.P. (PCP) Patient Instructions [facility] Problem Qualifiers
[2017-06-20] MEDS ORDERED: DICLOFENAC SOD 1% GEL 100 GM TUBE EXT PRN (04:30)
[2017-06-20] MEDS ORDERED: ONDANSETRON 4MG OD TAB SL PRN (04:30)
[2017-06-20] MEDS ORDERED: NITROGLYCERIN 0.4 MG SL PER TAB CHARGE SL PRN (04:30)
[2017-06-20] MEDS ORDERED: ONDANSETRON INJ 2 MG/ML 2 ML VIAL IV PRN (04:30)
[2017-06-20] MEDS ORDERED: POLYETHYLENE (MIRALAX) 17 GM PACK PO PRN (04:30)
[2017-06-20] MEDS ORDERED: ALUMINUM/MAGNESIUM/SIMETH (MAALOX MAX) 30 ML UDC PO PRN (04:30)
[2017-06-20] MEDS ORDERED: MAGNESIUM HYDROXIDE SUSP 30 ML UDC PO PRN (04:30)
[2017-06-20 05:25] VITALS: BP 136/92; PULSE 91; TEMP 37.5; O2SAT 97; Ht 165.1 cm; Wt 75.0 kg
[2017-06-20] MEDS ORDERED: IV FLUIDS COMPLETED PRN (05:45)
[2017-06-20] MEDS: ACETAMINOPHEN 325 MG TAB PO PRN (05:53)
[2017-06-20] MEDS: SODIUM CHLORIDE 0.9% 1000ML 1,000 ML IV SCH ×3 (05:54→23:21)
--- NOTE | 2017-06-20 06:31 | DIAGNOSTIC IMAGING REPORT ---
CHEST ONE VIEW PORTABLE CLINICAL HISTORY: Short Shallow Breathing COMPARISON STUDY: Chest radiograph May 10, 2017. FINDINGS: Lung volumes are mildly diminished. This is unchanged. There is no pneumothorax or pleural effusion. No consolidation is present. Cardiomediastinal silhouette is stable. There is no evidence for pulmonary edema. IMPRESSION: Hypoventilatory study. No acute cardiopulmonary findings. Electronically signed by: Florian Ro M.D. 06/20/2017 6:30 AM Dictated Date/Time: 06/20/2017 6:28 AM
[2017-06-20] MEDS ORDERED: GLUCOSE 40% GEL 15 GM TUBE PO PRN ×2 (07:00→13:45)
[2017-06-20] MEDS ORDERED: GLUCAGON FOR INJ 1 MG VIAL SQ PRN ×2 (07:00→13:45)
[2017-06-20] MEDS ORDERED: DEXTROSE 50% 50 ML SYR IV PRN ×2 (07:00→13:45)
[2017-06-20] MEDS ORDERED: GLUCOSE 10 TABS/TUBE PO PRN ×2 (07:00→13:45)
[2017-06-20 07:31] VITALS: BP 100/58; PULSE 89; TEMP 37.2; O2SAT 95
[2017-06-20 08:00] VITALS: O2SAT 95
[2017-06-20] MEDS ORDERED: LISINOPRIL 5 MG TAB PO SCH (08:00)
[2017-06-20] MEDS: HEPARIN SOD 5000 UNIT/0.5 ML CARP SQ SCH ×3 (08:00→20:42)
[2017-06-20] MEDS ORDERED: GABAPENTIN 400 MG CAP PO SCH (08:00)
[2017-06-20] MEDS: CARVEDILOL 25 MG TAB PO SCH (08:03)
[2017-06-20] MEDS: CEROVITE ADV FORMULA TAB PO SCH (08:03)
[2017-06-20] MEDS: PANTOprazole SOD 40 MG TAB PO SCH (08:03)
[2017-06-20] MEDS: ASPIRIN 81 MG ECTAB PO SCH (08:03)
[2017-06-20] MEDS: GABAPENTIN 400 MG CAP PO SCH (08:03)
[2017-06-20] MEDS: MAGNESIUM OXIDE 400 MG TAB PO SCH (08:03)
[2017-06-20] MEDS: CycloSPORINE (NEORAL) 25 MG CAP PO SCH ×2 (08:04→20:32)
[2017-06-20] MEDS: DULOXETINE (CYMBALTA) 30 MG CAP PO SCH (08:04)
[2017-06-20] MEDS: MYCOPHENOLATE MOFETIL 250 MG CAP (CELLCEPT) PO SCH ×2 (08:04→20:31)
[2017-06-20] MEDS: ROSUVASTATIN CALCIUM 5 MG TAB PO SCH (08:04)
[2017-06-20] MEDS: ISOSORBIDE MONONITRATE 30 MG TABCR PO SCH (08:04)
[2017-06-20] MEDS: BACLOFEN 10 MG TAB PO SCH ×3 (08:05→20:32)
[2017-06-20] MEDS: FAMOTIDINE 20 MG TAB PO SCH ×3 (08:05→20:32)
[2017-06-20] MEDS: INSULIN GLARGINE SOLOSTAR 100 UNITS/ML 3 ML PEN SC SCH (08:09)
--- NOTE | 2017-06-20 11:31 | Progress Note ---
Progress Note Date of Service Jun 20, 2017. Progress Note ID Consult Dictated #[id number] A/P: 1. Leukocytosis -Would send stool for c diff with recent course of IV ertapenem -follow cultures -thank you
--- NOTE | 2017-06-20 11:36 | INFECT. DISEASE CONSULTATION ---
DATE OF CONSULTATION: 06/20/2017 HISTORY OF PRESENT ILLNESS: This is a 57-year-old female who has a history of renal transplant in 1989 on immunosuppressives who was brought to the Emergency Room today secondary to diarrhea and decreased urine output. She did have a urinalysis done in the ER which had greater than 30 wbc's and no bacteria. She did have a leukocytosis of 17,000. She is not currently on antibiotics. Her procalcitonin is negative. Her lactic acid was mildly elevated at 2.6. She recently was admitted to the hospital in early May and was found to have a highly resistant E. coli bacteremia with blood cultures being positive on the . She was not evaluated by infectious diseases during that admission. Per the H&P, she was discharged from the hospital on a 10-day course of ertapenem, which she states she has completed. On my examination, she is lethargic but denies any chest pain, cough or shortness of breath. She denies any abdominal pain. She denies any fevers or chills. Her remaining review of systems is unremarkable. PAST MEDICAL HISTORY: Significant for anxiety, ADHD, hypertension, borderline personality disorder, history of CVA, coronary artery disease, type 2 diabetes, GERD, hypoparathyroidism, depressive disorder, osteoporosis, schizoaffective disorder, obstructive sleep apnea, and lupus. PAST SURGICAL HISTORY: Significant for coronary artery stent, kidney transplant in 1989 and a parathyroidectomy. FAMILY HISTORY: Noncontributory. SOCIAL HISTORY: Negative for tobacco use, alcohol use or drug use. ALLERGIES: SHE HAS ALLERGIES TO PENICILLIN AND VANCOMYCIN. CURRENT MEDICATIONS: Include Restoril, subQ heparin, aspirin, baclofen, Coreg, cyclosporine, Cymbalta, Pepcid, Lantus, Imdur, CellCept, multivitamins, Crestor, Protonix, magnesium, Neurontin, Tylenol, Maalox, milk of magnesia, MiraLax and Zofran. PHYSICAL EXAMINATION: VITAL SIGNS: She is afebrile and has been since admission, pulse 89, respiratory rate 20, blood pressure is 100/58, oxygen saturation is 95% on room air. GENERAL: She is awake, alert and oriented x3. She is in no acute distress. HEENT: Mucous membranes are dry. HEART: Regular. LUNGS: Clear. ABDOMEN: Soft and nondistended. EXTREMITIES: There is no edema. LABORATORY STUDIES: CBC today reveals a white blood cell count of 17.2, hemoglobin 13.6, platelets are 231. Chemistry panel: Sodium is 133, potassium 4.1, chloride 99, bicarbonate 23, BUN 39, creatinine 2.4, and glucose is 229. Lactic acid is improved to 1.5 this morning. LFTs are within normal limits. A procalcitonin is negative. Her urinalysis had large leukocyte esterase, greater than 30 wbc's, 20-30 epithelial cells and no bacteria. Blood and urine cultures are pending. IMAGING DATA: Chest x-ray was not significant for any infiltrate. ASSESSMENT AND PLAN: Leukocytosis. Certainly her urinalysis does not suggest urinary tract infection; however, she does have a recent history of Eustachian coli septicemia that appears to be treated with ertapenem. Her major complaint on admission was diarrhea. This would be concerning for Clostridium difficile as she has additional diarrhea. Certainly a Clostridium difficile could be sent. Her urine and blood cultures are pending. We will follow along with you. Thank you for this consultation.
--- NOTE | 2017-06-20 13:50 | Progress Note ---
Progress Note Date of Service Jun 20, 2017. Progress Note Pt admitted early this AM, seen in f/u and reviewed chart, pt seen and examined. Has had several loose stools since yesterday, none since but was given Bentyl in ER. Had one episode of n/v 2 days ago and had poor po intake over the last 2 days, no fevers at home but felt hot. She was mostly concerned about her low uop. [employer] up from baseline here, WBC count high, recently treated for resistant E. coli bacteremia with IV abx at home. She denies abd pain, flank pain, or dysuria , but states she never has urinary sxs with her UTIs. Has a h/o renal transplant and CKD stage III. Her Manufacturing Analyst is in [place] and she reports she recently was told to stay off her CellCept for 1 month and is now to start back on it. vitals reviewed NAD but appears distressed emotionally RRR no mgr CTAB no wcr Abd +BS soft NT ND ext no edema 57 yo female with renal transplant, CKD, recent resistant UTI and bacteremia, here with tachycardia, leukocytosis, abnormal UA, and diarrhea -C. diff ag when possible--> was given antispasmodic in ER so that may be why she is not giving a sample now of stool yet -will contact ID about empiric antibiotics while awaiting cultures given the abnormal UA and SIRS criteria-PCT normal which makes severe sepsis less likely -Coreg is indeed once daily as per pt although normally a bid drug Consult Nephrology given IRIS in setting of CKD and with renal transplant -increase IVFs to 150 mls/hr of NS
[2017-06-20 14:58] VITALS: BP 109/64; PULSE 71; TEMP 37.9; O2SAT 98
--- NOTE | 2017-06-20 15:42 | Nephrology Consultation ---
Nephrology Consultation Date & Providers Date of Consultation: Jun 20, 2017. Primary Care Provider: Mikala Vásquez Referring Provider: Reason for Consultation Management for IRIS. History of Present Illness Kecia is a 57 year old female with past medical history significant for hypertension, stage III chronic kidney disease with history of donor renal transplant admitted to the hospital with acute kidney injury. Nephrologic consult was requested to manage acute kidney injury. Electronic medical records including labs and imaging were reviewed in detail during patient's visit. Kecia presented to the Emergency Room with complaints of generalized weakness, vomiting and diarrhea since yesterday. She also c/o extreme fatigue and getting SOB with minimum exertion. On admission she was found to have IRIS cr 2.4, started on IV NS. UA negative for bacteria. She had few episode of vomiting and diarrhea but she was able to keep her antirejection meds down. Blood pressure has been stable. Her urine output has been low since yesterday. The she has been having fatigue and tiredness with minimal exertion. The previous workup including a chest x-ray, CT head, CT abdomen pelvis in January 2017 was unremarkable. 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 Eventually she received a disease donor renal transplant in 1998. She has been enjoying at pretty decent allograft function baseline creatinine has been around 1-1.2 however had several episodes of acute kidney injury previously. No history of rejection. 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 Ortiz, last visit with Dr. Ortiz was in August 2016 and after that there was several cancellation and no shows. She has been on Cyclosporine 50 twice a day and mycophenolate 250 twice a day. Not on chronic steroids. Recently she had flu and UTI and completed antibiotic as outpt. Allergies Coded Allergies: Penicillins (Verified Allergy, Mild, ITCHY, ANXIETY, 06/20/17) Loperamide (Verified Allergy, Unknown, 06/20/17) Vancomycin (Verified Allergy, Unknown, 06/20/17) Ziprasidone (Verified Allergy, Unknown, itching, 06/20/17) Inpatient Medications Current Inpatient Medications Medications (Trade) Dose Ordered Sig/Suyapa Route Start Time Stop Time Status Last Admin Dose Admin Acetaminophen (Tylenol Tab) 650 mg Q4H PRN PO 06/20/17 04:30 07/20/17 04:29 06/20/17 05:53 650 MG Al Hydrox/Mg Hydrox/Simethicone (Maalox Max Susp) 15 ml Q4H PRN PO 06/20/17 04:30 07/20/17 04:29 Magnesium Hydroxide (Milk Of Magnesia Susp) 30 ml Q6H PRN PO 06/20/17 04:30 07/20/17 04:29 Polyethylene (Miralax Powder Packet) 17 gm DAILY PRN PO 06/20/17 04:30 07/20/17 04:29 Ondansetron HCl (Zofran Inj) 4 mg Q6H PRN IV 06/20/17 04:30 07/20/17 04:29 Heparin Sodium (Porcine) (Heparin Sq 5000 Unit/0.5ml) 5,000 unit Q12H SQ 06/20/17 08:00 07/20/17 07:59 Aspirin (Ecotrin Tab) 81 mg DAILY PO 06/20/17 08:00 07/20/17 08:59 06/20/17 08:03 81 MG Baclofen (Lioresal Tab) 10 mg TID PO 06/20/17 08:00 07/20/17 08:59 06/20/17 13:41 10 MG Carvedilol (Coreg Tab) 25 mg DAILY PO 06/20/17 08:00 07/20/17 08:59 06/20/17 08:03 25 MG Cyclosporine (Neoral Cap) 50 mg BID PO 06/20/17 08:00 07/20/17 08:59 06/20/17 08:04 50 MG Duloxetine HCl (Cymbalta Cap) 30 mg DAILY PO 06/20/17 08:00 07/20/17 08:59 06/20/17 08:04 30 MG Famotidine (Pepcid Tab) 20 mg TID PO 06/20/17 08:00 07/20/17 08:59 06/20/17 13:42 20 MG Insulin Glargine (Lantus Solostar Pen) 20 units QAM SC 3/30/18 08:00 07/20/17 08:59 06/20/17 08:09 20 UNITS Isosorbide Mononitrate (Imdur Ext Rel Tab) 60 mg QAM PO 06/20/17 08:00 07/20/17 08:59 06/20/17 08:04 60 MG Mycophenolate Mofetil (Cellcept Cap) 250 mg BID PO 06/20/17 08:00 07/20/17 08:59 06/20/17 08:04 250 MG Nitroglycerin (Nitrostat Tab) 0.4 mg UD PRN SL 06/20/17 04:30 07/20/17 04:29 Multivitamins/ Minerals (Multivitamin W/ Minerals Tab) 1 tab DAILY PO 06/20/17 08:00 07/20/17 08:59 06/20/17 08:03 1 TAB Ondansetron HCl (Zofran Odt) 4 mg Q6H PRN SL 06/20/17 04:30 07/20/17 04:29 Rosuvastatin Calcium (Crestor Tab) 5 mg DAILY PO 06/20/17 08:00 07/20/17 08:59 06/20/17 08:04 5 MG Temazepam (Restoril Cap) 15 mg HS PO 06/20/17 21:00 07/20/17 20:59 Pantoprazole Sodium (Protonix Tab) 40 mg DAILY PO 06/20/17 08:00 07/20/17 08:59 06/20/17 08:03 40 MG Sodium Chloride 1,000 ml @ 150 mls/hr Q6H40M IV 06/20/17 04:45 06/21/17 02:49 06/20/17 13:41 115 MLS/HR Magnesium Oxide (Mag-Ox Tab) 400 mg QAM PO 06/20/17 08:00 07/20/17 08:59 06/20/17 08:03 400 MG Miscellaneous (Iv Fluids Completed) 1 ea PRN PRN N/A 06/20/17 05:45 06/20/18 05:44 Gabapentin (Neurontin Cap) 400 mg DAILY PO 06/20/17 08:00 07/20/17 08:59 06/20/17 08:03 400 MG Glucose (Glucose 40% Gel) 15-30 GRAMS 15 GRAMS... UD PRN PO 06/20/17 07:00 07/20/17 06:59 Glucose (Glucose Chew Tab) 4-8 Tablets 4 Tabl... UD PRN PO 06/20/17 07:00 07/20/17 06:59 Dextrose (Dextrose 50% 50ML Syringe) 25-50ML OF 50% DW IV FOR... UD PRN IV 06/20/17 07:00 07/20/17 06:59 Glucagon (Glucagon Inj) 1 mg UD PRN SQ 06/20/17 07:00 07/20/17 06:59 Insulin Aspart (novoLOG ASPART) SLIDING SCALE If C... ACHS SC 06/20/17 16:30 07/20/17 16:29 Glucose (Glucose 40% Gel) 15-30 GRAMS 15 GRAMS... UD PRN PO 06/20/17 13:45 07/20/17 13:44 Glucose (Glucose Chew Tab) 4-8 Tablets 4 Tabl... UD PRN PO 06/20/17 13:45 07/20/17 13:44 Dextrose (Dextrose 50% 50ML Syringe) 25-50ML OF 50% DW IV FOR... UD PRN IV 06/20/17 13:45 07/20/17 13:44 Glucagon (Glucagon Inj) 1 mg UD PRN SQ 06/20/17 13:45 07/20/17 13:44 Ertapenem 1 gm/ Sodium Chloride 50 ml @ 120 mls/hr DAILY@1600 IV 06/20/17 16:00 06/30/17 15:59 Family History FH: dementia MOTHER FH: diabetes mellitus SISTER GRANDMOTHER FH: heart disease FATHER MOTHER FH: lung cancer FATHER FH: rheumatoid arthritis SISTER FHx: heart disease Social History Smoking Status: Never Smoker Drug Use: none Marital Status: single Housing Status: lives alone Occupation: disabled Review of Systems A complete review of systems was performed. Pertinent positives are noted above. All other systems are negative. Physical Exam Date Time Temp Pulse Resp B/P (MAP) Pulse Ox O2 Delivery O2 Flow Rate FiO2 06/20/17 14:58 37.9 71 20 109/64 (79) 98 Room Air 06/20/17 08:00 95 Room Air 06/20/17 07:31 37.2 89 20 100/58 (72) 95 Room Air 06/20/17 05:25 37.5 91 26 136/92 97 Room Air 06/20/17 05:10 36.6 90 24 148/80 93 Room Air 06/20/17 04:20 93 24 144/86 93 Room Air 06/20/17 02:52 84 24 124/95 97 Room Air 06/20/17 01:36 Room Air 06/20/17 00:49 36.4 95 20 99/64 97 Room Air GENERAL: middle aged female, AAA x 3, in mild distress. HEENT: Atraumatic, normocephalic. NECK: Supple, no JVD, no carotid bruit appreciated. ENT: No sinus tenderness MOUTH and THROAT: Moist oral mucosa, no oral ulcer or pharyngeal erythema RESPIRATORY: clear to auscultation bilaterally, no wheezes or rales. CARDIOVASCULAR: S1, S2 normal, rate rhythm regular. ABDOMEN: Soft, nontender, positive bowel sound. MUSCULOSKELETAL: No joint swelling, erythema or tenderness. Normal range of motion. SKIN: No skin rash EXTREMITY: No lower extremity edema NEURO: No gross focal neurological deficit, speech fluent. PSYCHIATRY: Normal mood and judgment Laboratory Results Last 24 Hours Test 06/20/17 01:20 06/20/17 04:37 06/20/17 05:45 06/20/17 05:51 White Blood Count 17.20 K/uL Red Blood Count 4.43 M/uL Hemoglobin 13.6 g/dL Hematocrit 40.0 % Mean Corpuscular Volume 90.3 fL Mean Corpuscular Hemoglobin 30.7 pg Mean Corpuscular Hemoglobin Concent 34.0 g/dl Platelet Count 231 K/uL Mean Platelet Volume 9.6 fL Neutrophils (%) (Auto) 71.9 % Lymphocytes (%) (Auto) 16.8 % Monocytes (%) (Auto) 10.4 % Eosinophils (%) (Auto) 0.3 % Basophils (%) (Auto) 0.2 % Neutrophils # (Auto) 12.35 K/uL Lymphocytes # (Auto) 2.89 K/uL Monocytes # (Auto) 1.79 K/uL Eosinophils # (Auto) 0.06 K/uL Basophils # (Auto) 0.04 K/uL RDW Standard Deviation 48.5 fL RDW Coefficient of Variation 14.9 % Immature Granulocyte % (Auto) 0.4 % Immature Granulocyte # (Auto) 0.07 K/uL Sodium Level 133 mmol/L Potassium Level 4.1 mmol/L Chloride Level 99 mmol/L Carbon Dioxide Level 23 mmol/L Anion Gap 11.0 mmol/L Blood Urea Nitrogen 39 mg/dl Creatinine 2.42 mg/dl Est Creatinine Clear Calc Drug Dose 26.0 ml/min Estimated GFR () 24.7 Estimated GFR (Non- 21.3 BUN/Creatinine Ratio 16.2 Random Glucose 229 mg/dl Calcium Level 8.9 mg/dl Magnesium Level 1.6 mg/dl Total Bilirubin 0.6 mg/dl Direct Bilirubin mg/dl Aspartate Amino Transf (AST/SGOT) 22 U/L Alanine Aminotransferase (ALT/SGPT) 29 U/L Alkaline Phosphatase 120 U/L Total Protein 8.1 gm/dl Albumin 3.5 gm/dl Lipase 266 U/L Chemistry Specimen Hemolysis Lactic Acid Level 2.6 mmol/L Procalcitonin < 0.05 ng/ml Urine Color DK YELLOW Urine Appearance TURBID Urine pH 5.0 Urine Specific [place] 1.023 Urine Protein 1+ Urine Glucose (UA) NEG Urine Ketones TRACE Urine Occult Blood TRACE Urine Nitrite NEG Urine Bilirubin NEG Urine Urobilinogen NEG Urine Leukocyte Esterase LARGE Urine WBC (Auto) >30 /hpf Urine RBC (Auto) 5-10 /hpf Urine Hyaline Casts (Auto) 1-5 /lpf Urine Epithelial Cells (Auto) 20-30 /lpf Urine Bacteria (Auto) NEG Venous Blood pH 7.42 Venous Blood Partial Pressure CO2 36 mmHg Venous Blood Partial Pressure O2 22 mmHg Venous Blood HCO3 23 mmol/L Venous Blood Oxygen Saturation < 60.0 % Venous Blood Base Excess -1.0 mEq/L Test 06/20/17 06:50 06/20/17 09:57 Prothrombin Time 10.5 SECONDS Prothromb Time International Ratio 1.0 Lactic Acid Level 1.5 mmol/L Impression (1) Acute kidney injury (2) Benign hypertension (3) Kidney transplant status, cadaveric 57-year-old female with acute kidney injury with history of stage 3 chronic kidney disease with prior history of donor renal transplant. Baseline creatinine has been 1.1-1.2 with history of recurrent episodes of acute kidney injury including an episode in Apr when pt admitted with Flu. No history of acute or chronic rejection before. Presented to the hospital with generalized weakness and found to have acute kidney injury and hyperkalemia, creatinine was 2.6 and potassium was 5.6. Blood pressure stable. At home she was on lisinopril 5 milligrams p.o. daily which was on hold since admission. Acute kidney injury most likely hemodynamically mediated with volume depletion, unlikely allograft rejection. Recommendations --Continue on Cyclosporin and cellcept as pt currently denies any nausea or vomiting. --continue on IV fluid at normal saline at 100 mL/hour --monitor urine output --continue to hold lisinopril, avoid NSAIDs and other nephrotoxic medications --renal panel daily, with patient's history of recurrent acute kidney injury she is at risk for progressive renal impairment -- if patient continues to complain of fatigue and shortness of breath with minimum exertion, may need cardiology consultation with prior history of abnormal stress test and low ejection fraction Thank you for allowing me to participate in your patient's care. It was a pleasure to see Kecia
[2017-06-20 16:00] VITALS: O2SAT 95
[2017-06-20] MEDS: ERTAPENEM IV 1 GM in SODIUM CHLOR 0.9% AD-VAN 50ML 50 ML IV SCH (16:08)
[2017-06-20] MEDS: INSULIN ASPART 100 UNITS/ML 3 ML PEN SC SCH ×2 (16:30→20:29)
[2017-06-20] MEDS: TEMAZEPAM 15 MG CAP PO SCH (20:39)
[2017-06-21] VITALS (9 sets, daily range): BP systolic 113–149; BP diastolic 58–79; PULSE 60–82; TEMP 36.7–39.3; O2SAT 91–98
[2017-06-21] MEDS: ACETAMINOPHEN 325 MG TAB PO PRN (00:43)
[2017-06-21 03:20] LABS: HEMATOCRIT 29.3 % (37-47); HEMOGLOBIN 9.9 g/dL (12.0-16.0); MEAN CELL VOLUME 88.8 fL (80-100); MEAN CORPUSCULAR HGB CONC 33.8 g/dl (32-36); MEAN PLATELET VOLUME 9.7 fL (7.4-10.4); PLATELET COUNT 142 K/uL (130-400); RED CELL DISTRIBUTION WIDTH SD 48.5 fL (36.4-46.3); WHITE BLOOD COUNT 20.38 K/uL (4.8-10.8)
[2017-06-21 03:32] LABS: CALCIUM 7.5 mg/dl (8.5-10.1); CREATININE 1.77 mg/dl (0.60-1.20); POTASSIUM 3.8 mmol/L (3.5-5.1)
[2017-06-21 03:34] LABS: BASO % 0.1 %; BASO ABS # 0.02 K/uL (0-0.2); EOS % 0.1 %; EOS ABS # 0.02 K/uL (0-0.5); IG# 0.06 K/uL (0.00-0.02); LYMPH % 11.2 %; LYMPH ABS # 2.29 K/uL (1.2-3.4); MONO % 10.9 %; MONO ABS # 2.22 K/uL (0.11-0.59); NEUT % 77.4 %; NEUT ABS # 15.77 K/uL (1.4-6.5)
[2017-06-21] MEDS: INSULIN ASPART 100 UNITS/ML 3 ML PEN SC SCH ×4 (06:30→21:11)
[2017-06-21] MEDS: CEROVITE ADV FORMULA TAB PO SCH (07:43)
[2017-06-21] MEDS: ISOSORBIDE MONONITRATE 30 MG TABCR PO SCH (07:43)
[2017-06-21] MEDS: DULOXETINE (CYMBALTA) 30 MG CAP PO SCH (07:43)
[2017-06-21] MEDS: CycloSPORINE (NEORAL) 25 MG CAP PO SCH ×2 (07:44→21:04)
[2017-06-21] MEDS: FAMOTIDINE 20 MG TAB PO SCH ×3 (07:44→21:04)
[2017-06-21] MEDS: BACLOFEN 10 MG TAB PO SCH ×3 (07:44→21:05)
[2017-06-21] MEDS: GABAPENTIN 400 MG CAP PO SCH (07:44)
[2017-06-21] MEDS: ASPIRIN 81 MG ECTAB PO SCH (07:44)
[2017-06-21] MEDS: MAGNESIUM OXIDE 400 MG TAB PO SCH (07:44)
[2017-06-21] MEDS: PANTOprazole SOD 40 MG TAB PO SCH (07:44)
[2017-06-21] MEDS: ROSUVASTATIN CALCIUM 5 MG TAB PO SCH (07:44)
[2017-06-21] MEDS: MYCOPHENOLATE MOFETIL 250 MG CAP (CELLCEPT) PO SCH ×2 (07:44→21:01)
[2017-06-21] MEDS: CARVEDILOL 25 MG TAB PO SCH (07:45)
[2017-06-21] MEDS: INSULIN GLARGINE SOLOSTAR 100 UNITS/ML 3 ML PEN SC SCH (07:47)
[2017-06-21] MEDS: HEPARIN SOD 5000 UNIT/0.5 ML CARP SQ SCH ×2 (07:47→20:00)
--- NOTE | 2017-06-21 11:39 | Hospitalist Progress Note ---
Hospitalist Progress Note Date of Service Jun 21, 2017. Subjective Pt evaluation today including: conversation w/ patient Patient is very drowsy this morning, but answers my questions with her eyes closed. Says she is not having any chest pain or shortness of breath, no cough , no abdominal pain, no diarrhea. 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 In fact, she had some incontinence to both urine and stool. The patient denies having stool overnight. C. difficile antigen was negative. She did spike a fever overnight as well. All Other Systems: Reviewed and Negative Objective Vital Signs Date Time Temp Pulse Resp B/P (MAP) Pulse Ox O2 Delivery O2 Flow Rate FiO2 06/21/17 08:00 95 Room Air 06/21/17 07:17 36.7 60 20 120/79 (93) 98 Room Air 06/21/17 04:19 37.0 68 19 124/72 (89) 92 Nasal Cannula 06/21/17 02:15 38.7 06/21/17 00:23 39.3 82 18 118/60 (79) 91 Room Air 06/21/17 00:00 Room Air 06/20/17 16:00 95 Room Air 06/20/17 14:58 37.9 71 20 109/64 (79) 98 Room Air Physical Exam General Appearance: no apparent distress (Drowsy, but wakes up to answer my questions appropriately) Eyes: normal inspection, sclerae normal ENT: hearing grossly normal Neck: trachea midline Respiratory/Chest: lungs clear, normal breath sounds, no respiratory distress, no accessory muscle use Cardiovascular: regular rate, rhythm, no edema, no gallop, no murmur Abdomen: normal bowel sounds, non tender, soft Extremities: non-tender, normal inspection, no pedal edema, no calf tenderness Neurologic/Psychiatric: + pertinent finding (Flat affect) Skin: normal color, warm/dry, no rash Laboratory Results Last 24 Hours Test 06/20/17 12:08 06/20/17 17:01 06/20/17 17:24 06/20/17 20:06 Bedside Glucose 177 mg/dl 170 mg/dl 197 mg/dl Lactic Acid Level 0.8 mmol/L Test 06/21/17 02:59 06/21/17 07:49 White Blood Count 20.38 K/uL Red Blood Count 3.30 M/uL Hemoglobin 9.9 g/dL Hematocrit 29.3 % Mean Corpuscular Volume 88.8 fL Mean Corpuscular Hemoglobin 30.0 pg Mean Corpuscular Hemoglobin Concent 33.8 g/dl Platelet Count 142 K/uL Mean Platelet Volume 9.7 fL Neutrophils (%) (Auto) 77.4 % Lymphocytes (%) (Auto) 11.2 % Monocytes (%) (Auto) 10.9 % Eosinophils (%) (Auto) 0.1 % Basophils (%) (Auto) 0.1 % Neutrophils # (Auto) 15.77 K/uL Lymphocytes # (Auto) 2.29 K/uL Monocytes # (Auto) 2.22 K/uL Eosinophils # (Auto) 0.02 K/uL Basophils # (Auto) 0.02 K/uL RDW Standard Deviation 48.5 fL RDW Coefficient of Variation 15.0 % Immature Granulocyte % (Auto) 0.3 % Immature Granulocyte # (Auto) 0.06 K/uL Sodium Level 136 mmol/L Potassium Level 3.8 mmol/L Chloride Level 109 mmol/L Carbon Dioxide Level 17 mmol/L Anion Gap 10.0 mmol/L Blood Urea Nitrogen 41 mg/dl Creatinine 1.77 mg/dl Est Creatinine Clear Calc Drug Dose 35.1 ml/min Estimated GFR () 36.1 Estimated GFR (Non- 31.1 BUN/Creatinine Ratio 23.3 Random Glucose 158 mg/dl Calcium Level 7.5 mg/dl Bedside Glucose 116 mg/dl Assessment and Plan This patient is a 57 yo female with a history of renal transplant on chronic immunosuppressive therapy, CKD stage III, recent resistant UTI and bacteremia, chronic systolic CHF, moderate aortic stenosis and mitral regurgitation, CAD with history of OH, TAMARA not on CPAP, SLE, and schizoaffective disorder, here with sepsis as evidenced by tachycardia, fever, leukocytosis, with abnormal UA, and diarrhea. Sepsis/abnormal UA-urine culture with mixed organisms but UA seemed marginally positive. Was just discharged and completed IV Invanz for 14 day course for ESBL E. coli bacteremia and UTI. Given her immunosuppressed state, will continue antibiotics and follow cultures. Diarrhea has resolved and C. difficile antigen was negative, stool culture is pending but fecal leuks are negative. Not likely the source of her sepsis. Her pro-calcitonin is negative which is interesting. Her leukocytosis has worsened today to 20,000 despite her other counts going down with hemodilution which is concerning. She did not get her first dose of antibiotics until late in the day yesterday so this may be why. -Follow blood cultures -Continue Invanz -Appreciate infectious disease consultation -check rapid Flu PCR now -Follow CBC -IV fluids discontinued as she is eating and drinking and has been volume resuscitated IRIS in the setting of CKD III/history of renal transplant on chronic immunosuppressive therapy/non-anion gap metabolic acidosis-creatinine has significant improvement today down to 1.77 from 2.42 after receiving IV fluids pointing towards a prerenal acidemia. Non-AG acidosis could be due to loose stools and diarrhea with GI bicarbonate losses. Her urine output has picked up with IV fluid hydration she was likely volume depleted. -Okay to DC IV fluids -Appreciate nephrology consultation -Maintain cyclosporine and CellCept home doses -Follow PRP -Holding home lisinopril Anemia-has anemia of chronic kidney disease, baseline usually around 10. Her hemoglobin was hemoconcentrated on admission at 13.6 and has dropped to 9.9 today likely from hemodilution, but I feel this is around her baseline and not from acute blood loss -Follow CBC CAD with history of cath/stent placement/chronic systolic CHF/ischemic cardiomyopathy/moderate /moderate MR-echo done within the last 6 months showed LVEF 30-35% with wall motion abnormalities, valvular disease. Nuclear medicine stress test shortly after that showed a large area of infarct in the RCA territory, no ischemia. - cont ASA, Imdur, statin -Her Coreg is listed as 25 mg daily which is not held Coreg should be dosed-we will change her today to 12.5 mg p.o. twice daily - Nitrostat SL prn DM 2, on long-term insulin, hemoglobin A1c here 7.9% a few weeks ago -Maintain basal bolus regimen -Holding Victoza while inpatient TAMARA-not on CPAP GERD-stable - continue famotidine and ppi HTN-stable -Holding lisinopril as above -Changing carvedilol to 12.5 mg p.o. twice daily (from listed 25 mg once daily) HLD - statin as above Neuropathic pain - continue Gabapentin -Continue baclofen for face spasms Insomnia - continue restoril Schizoaffective disorder-stable SLE-quiescent, not on medications Prophylaxis-heparin SQ Disposition-remain here until medically stable for discharge, will need PT/OT consultations given generalized weakness
--- NOTE | 2017-06-21 12:54 | Nephrology Progress Note ---
Nephrology Progress Note Date of Service Jun 21, 2017. Chief Complaint Kidney transplant, IRIS Subjective Kecia was seen and evaluated in her hospital room this morning. She was sleeping and would not open her eyes to talk to me. She refused to sit up for her exam. Kecia stated, "I feel fine" and "I don't need help from any of the doctor's." She states that she is in the hospital because no one would take care of her diarrhea while she was home. She states that she is not concerned about her kidney dysfunction because she "knows how to take care of it." She reports that she was just dehydrated. She denies any subjective fevers or chills. She denies abdominal pain. She has not had a bowel movement today. Kecia notes that she had held Cellcept for several weeks in the setting of her recent infection. She had restarted the medication 2 days ago. She notes that her GI symptoms had started prior to restarting the medication. Kecia stopped showing up to her follow up visits with me several months ago. She states that she is currently following with Dr. Washington in [place]. Review of Systems A complete review of systems was performed. Pertinent positives are noted above. All other systems are negative. Vital Signs Last 8 Hrs Date Time Temp Pulse Resp B/P (MAP) Pulse Ox O2 Delivery O2 Flow Rate FiO2 06/21/17 08:00 95 Room Air 06/21/17 07:17 36.7 60 20 120/79 (93) 98 Room Air Last Recorded Weight Weight (Kilograms): 75.000 Physical Exam General Appearance: WD/WN, no apparent distress Head: normocephalic, atraumatic Eyes: normal inspection, sclerae normal ENT: normal ENT inspection, pharynx normal Neck: supple, no JVD Respiratory/Chest: lungs clear (anteriorly) Cardiovascular: regular rate, rhythm, no gallop Abdomen/GI: non tender, soft, + pertinent finding (allograft non tender, no abdominal bruit) Extremities/Musculoskelatal: normal inspection, no pedal edema Neurologic/Psych: alert, + depressed affect Family History FH: dementia MOTHER FH: diabetes mellitus SISTER GRANDMOTHER FH: heart disease FATHER MOTHER FH: lung cancer FATHER FH: rheumatoid arthritis SISTER FHx: heart disease Social History Smoking Status: Never smoker Drug Use: none Marital Status: single Housing Status: lives alone Occupation: disabled Laboratory Results Past 24 Hours 06/21/17 02:59 Red Blood Count 3.30, Mean Corpuscular Volume 88.8, Mean Corpuscular Hemoglobin 30.0, Mean Corpuscular Hemoglobin Concent 33.8, Mean Platelet Volume 9.7, Neutrophils (%) (Auto) 77.4, Lymphocytes (%) (Auto) 11.2, Monocytes (%) (Auto) 10.9, Eosinophils (%) (Auto) 0.1, Basophils (%) (Auto) 0.1, Neutrophils # (Auto ) 15.77, Lymphocytes # (Auto) 2.29, Monocytes # (Auto) 2.22, Eosinophils # (Auto ) 0.02, Basophils # (Auto) 0.02 06/21/17 02:59 Test 06/20/17 17:01 06/20/17 17:24 06/20/17 20:06 06/21/17 02:59 Bedside Glucose 170 mg/dl (70-90) 197 mg/dl (70-90) Lactic Acid Level 0.8 mmol/L (0.4-2.0) White Blood Count 20.38 K/uL (4.8-10.8) Red Blood Count 3.30 M/uL (4.2-5.4) Hemoglobin 9.9 g/dL (12.0-16.0) Hematocrit 29.3 % (37-47) Mean Corpuscular Volume 88.8 fL (80-100) Mean Corpuscular Hemoglobin 30.0 pg (25-34) Mean Corpuscular Hemoglobin Concent 33.8 g/dl (32-36) Platelet Count 142 K/uL (130-400) Mean Platelet Volume 9.7 fL (7.4-10.4) Neutrophils (%) (Auto) 77.4 % Lymphocytes (%) (Auto) 11.2 % Monocytes (%) (Auto) 10.9 % Eosinophils (%) (Auto) 0.1 % Basophils (%) (Auto) 0.1 % Neutrophils # (Auto) 15.77 K/uL (1.4-6.5) Lymphocytes # (Auto) 2.29 K/uL (1.2-3.4) Monocytes # (Auto) 2.22 K/uL (0.11-0.59) Eosinophils # (Auto) 0.02 K/uL (0-0.5) Basophils # (Auto) 0.02 K/uL (0-0.2) RDW Standard Deviation 48.5 fL (36.4-46.3) RDW Coefficient of Variation 15.0 % (11.5-14.5) Immature Granulocyte % (Auto) 0.3 % Immature Granulocyte # (Auto) 0.06 K/uL (0.00-0.02) Anion Gap 10.0 mmol/L (3-11) Est Creatinine Clear Calc Drug Dose 35.1 ml/min Estimated GFR () 36.1 Estimated GFR (Non- 31.1 BUN/Creatinine Ratio 23.3 (10-20) Calcium Level 7.5 mg/dl (8.5-10.1) Test 06/21/17 07:49 06/21/17 11:51 Bedside Glucose 116 mg/dl (70-90) 248 mg/dl (70-90) Date/Time Source Procedure Growth Status 06/20/17 17:15 Stool C.difficile Toxin B Gene (PCR) - Final No C. difficile toxin B gene detected Complete 06/20/17 17:15 Stool Rotavirus Antigen - Final Negative for Rotavirus Antigen Complete Allergies Coded Allergies: Penicillins (Verified Allergy, Mild, ITCHY, ANXIETY, 06/20/17) Loperamide (Verified Allergy, Unknown, 06/20/17) Vancomycin (Verified Allergy, Unknown, 06/20/17) Ziprasidone (Verified Allergy, Unknown, itching, 06/20/17) Medications Current Inpatient Medications Medications (Trade) Dose Ordered Sig/Suyapa Route Start Time Stop Time Status Last Admin Dose Admin Acetaminophen (Tylenol Tab) 650 mg Q4H PRN PO 06/20/17 04:30 07/20/17 04:29 06/21/17 00:43 650 MG Al Hydrox/Mg Hydrox/Simethicone (Maalox Max Susp) 15 ml Q4H PRN PO 06/20/17 04:30 07/20/17 04:29 Magnesium Hydroxide (Milk Of Magnesia Susp) 30 ml Q6H PRN PO 06/20/17 04:30 07/20/17 04:29 Polyethylene (Miralax Powder Packet) 17 gm DAILY PRN PO 06/20/17 04:30 07/20/17 04:29 Ondansetron HCl (Zofran Inj) 4 mg Q6H PRN IV 06/20/17 04:30 07/20/17 04:29 Heparin Sodium (Porcine) (Heparin Sq 5000 Unit/0.5ml) 5,000 unit Q12H SQ 06/20/17 08:00 07/20/17 07:59 Aspirin (Ecotrin Tab) 81 mg DAILY PO 06/20/17 08:00 07/20/17 08:59 06/21/17 07:44 81 MG Baclofen (Lioresal Tab) 10 mg TID PO 06/20/17 08:00 07/20/17 08:59 06/21/17 07:44 10 MG Cyclosporine (Neoral Cap) 50 mg BID PO 06/20/17 08:00 07/20/17 08:59 06/21/17 07:44 50 MG Duloxetine HCl (Cymbalta Cap) 30 mg DAILY PO 06/20/17 08:00 07/20/17 08:59 06/21/17 07:43 30 MG Famotidine (Pepcid Tab) 20 mg TID PO 06/20/17 08:00 07/20/17 08:59 06/21/17 07:44 20 MG Insulin Glargine (Lantus Solostar Pen) 20 units QAM SC 06/20/17 08:00 07/20/17 08:59 06/21/17 07:47 20 UNITS Isosorbide Mononitrate (Imdur Ext Rel Tab) 60 mg QAM PO 06/20/17 08:00 07/20/17 08:59 06/21/17 07:43 60 MG Mycophenolate Mofetil (Cellcept Cap) 250 mg BID PO 06/20/17 08:00 07/20/17 08:59 06/21/17 07:44 250 MG Nitroglycerin (Nitrostat Tab) 0.4 mg UD PRN SL 06/20/17 04:30 07/20/17 04:29 Multivitamins/ Minerals (Multivitamin W/ Minerals Tab) 1 tab DAILY PO 06/20/17 08:00 07/20/17 08:59 06/21/17 07:43 1 TAB Ondansetron HCl (Zofran Odt) 4 mg Q6H PRN SL 06/20/17 04:30 07/20/17 04:29 Rosuvastatin Calcium (Crestor Tab) 5 mg DAILY PO 06/20/17 08:00 07/20/17 08:59 06/21/17 07:44 5 MG Temazepam (Restoril Cap) 15 mg HS PO 06/20/17 21:00 07/20/17 20:59 06/20/17 20:39 15 MG Pantoprazole Sodium (Protonix Tab) 40 mg DAILY PO 06/20/17 08:00 07/20/17 08:59 06/21/17 07:44 40 MG Magnesium Oxide (Mag-Ox Tab) 400 mg QAM PO 06/20/17 08:00 07/20/17 08:59 06/21/17 07:44 400 MG Miscellaneous (Iv Fluids Completed) 1 ea PRN PRN N/A 06/20/17 05:45 06/20/18 05:44 06/21/17 07:19 1 EA Gabapentin (Neurontin Cap) 400 mg DAILY PO 06/20/17 08:00 07/20/17 08:59 06/21/17 07:44 400 MG Glucose (Glucose 40% Gel) 15-30 GRAMS 15 GRAMS... UD PRN PO 06/20/17 07:00 07/20/17 06:59 Glucose (Glucose Chew Tab) 4-8 Tablets 4 Tabl... UD PRN PO 06/20/17 07:00 07/20/17 06:59 Dextrose (Dextrose 50% 50ML Syringe) 25-50ML OF 50% DW IV FOR... UD PRN IV 06/20/17 07:00 07/20/17 06:59 Glucagon (Glucagon Inj) 1 mg UD PRN SQ 06/20/17 07:00 07/20/17 06:59 Insulin Aspart (novoLOG ASPART) SLIDING SCALE If C... ACHS SC 06/20/17 16:30 07/20/17 16:29 Glucose (Glucose 40% Gel) 15-30 GRAMS 15 GRAMS... UD PRN PO 06/20/17 13:45 07/20/17 13:44 Glucose (Glucose Chew Tab) 4-8 Tablets 4 Tabl... UD PRN PO 06/20/17 13:45 07/20/17 13:44 Dextrose (Dextrose 50% 50ML Syringe) 25-50ML OF 50% DW IV FOR... UD PRN IV 06/20/17 13:45 07/20/17 13:44 Glucagon (Glucagon Inj) 1 mg UD PRN SQ 06/20/17 13:45 07/20/17 13:44 Ertapenem 1 gm/ Sodium Chloride 50 ml @ 120 mls/hr DAILY@1600 IV 06/20/17 16:00 06/30/17 15:59 06/20/17 16:08 120 MLS/HR Carvedilol (Coreg Tab) 12.5 mg BID PO 06/21/17 20:00 07/20/17 08:59 Impression (1) Acute kidney injury (2) Benign hypertension (3) Kidney transplant status, cadaveric Kecia is a 57-year-old female with 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 She has a functional donor kidney transplant. Baseline creatinine has been approximately 1.2 mg/dL. Kecia presented with IRIS consistent with ATN and prerenal azotemia. Creatinine improved to 1.7 mg/dL with IVF. Volume status currently appears appropriate.She has a history of recurrent episodes of IRIS. She has been having diarrhea. C diff was negative. Kecia has had fevers and a notable leukocytosis. ID consult is following. Kecia was recently admitted to the hospital in April with Flu. At home she was on lisinopril 5 milligrams p.o. daily which is on hold since admission. Blood pressure appears appropriate at this time. Recommendations -- Continue on cyclosporine and Cellcept: patient appears to be tolerating medications well -- Stop IVF -- Document I/O's -- Medications are appropriate for kidney function -- Lisinopril held -- ID consult appreciated
[2017-06-21 14:56] LABS: INFLUENZA A PCR Neg for Influ A (NEG); INFLUENZA B PCR Neg for Influ B (NEG)
[2017-06-21] MEDS: ERTAPENEM IV 1 GM in SODIUM CHLOR 0.9% AD-VAN 50ML 50 ML IV SCH (16:58)
[2017-06-21] MEDS: TEMAZEPAM 15 MG CAP PO SCH (21:02)
[2017-06-21] MEDS: CARVEDILOL 12.5 MG TAB PO SCH (21:03)
[2017-06-22 06:28] LABS: BASO % 0.3 %; BASO ABS # 0.03 K/uL (0-0.2); EOS % 1.7 %; EOS ABS # 0.17 K/uL (0-0.5); HEMATOCRIT 27.3 % (37-47); HEMOGLOBIN 9.2 g/dL (12.0-16.0); IG# 0.02 K/uL (0.00-0.02); LYMPH % 18.9 %; LYMPH ABS # 1.88 K/uL (1.2-3.4); MEAN CELL VOLUME 90.4 fL (80-100); MEAN CORPUSCULAR HEMOGLOBIN 30.5 pg (25-34); MEAN CORPUSCULAR HGB CONC 33.7 g/dl (32-36); MEAN PLATELET VOLUME 10.1 fL (7.4-10.4); MONO ABS # 1.19 K/uL (0.11-0.59); NEUT % 66.9 %; NEUT ABS # 6.66 K/uL (1.4-6.5); PLATELET COUNT 139 K/uL (130-400); RED CELL DISTRIBUTION WIDTH CV 14.8 % (11.5-14.5); RED CELL DISTRIBUTION WIDTH SD 49.1 fL (36.4-46.3); WHITE BLOOD COUNT 9.95 K/uL (4.8-10.8)
[2017-06-22 06:53] LABS: CALCIUM 8.2 mg/dl (8.5-10.1); CREATININE 1.24 mg/dl (0.60-1.20); POTASSIUM 4.1 mmol/L (3.5-5.1)
[2017-06-22 07:06] VITALS: BP 156/78; PULSE 49; TEMP 37; O2SAT 95
[2017-06-22] MEDS: CycloSPORINE (NEORAL) 25 MG CAP PO SCH ×2 (07:57→21:24)
[2017-06-22] MEDS: MAGNESIUM OXIDE 400 MG TAB PO SCH (07:58)
[2017-06-22] MEDS: ASPIRIN 81 MG ECTAB PO SCH (07:58)
[2017-06-22] MEDS: FAMOTIDINE 20 MG TAB PO SCH ×3 (07:58→21:23)
[2017-06-22] MEDS: CARVEDILOL 12.5 MG TAB PO SCH ×2 (07:59→20:00)
[2017-06-22] MEDS: GABAPENTIN 400 MG CAP PO SCH (08:00)
[2017-06-22] MEDS ORDERED: INSULIN GLARGINE SOLOSTAR 100 UNITS/ML 3 ML PEN SC SCH (08:00)
[2017-06-22] MEDS: HEPARIN SOD 5000 UNIT/0.5 ML CARP SQ SCH ×2 (08:00→20:00)
[2017-06-22] MEDS: DULOXETINE (CYMBALTA) 30 MG CAP PO SCH (08:00)
[2017-06-22] MEDS: ISOSORBIDE MONONITRATE 30 MG TABCR PO SCH (08:01)
[2017-06-22] MEDS: PANTOprazole SOD 40 MG TAB PO SCH (08:01)
[2017-06-22] MEDS: CEROVITE ADV FORMULA TAB PO SCH (08:01)
[2017-06-22] MEDS: ROSUVASTATIN CALCIUM 5 MG TAB PO SCH (08:02)
[2017-06-22] MEDS: MYCOPHENOLATE MOFETIL 250 MG CAP (CELLCEPT) PO SCH ×2 (08:02→21:25)
[2017-06-22] MEDS: BACLOFEN 10 MG TAB PO SCH ×3 (08:02→21:22)
[2017-06-22] MEDS: INSULIN ASPART 100 UNITS/ML 3 ML PEN SC SCH ×4 (10:20→21:24)
[2017-06-22] MEDS ORDERED: LISINOPRIL 5 MG TAB PO ONE (11:39)
--- NOTE | 2017-06-22 11:39 | Nephrology Progress Note ---
Nephrology Progress Note Date of Service Jun 22, 2017. Chief Complaint Kidney transplant, IRIS Subjective No acute events overnight. Kecia was sleeping this morning. She refused to answer questions. She stated that she is fine. I suggested that decreasing her baclofen or gabapentin may help with fatigue but she became very upset and defensive regarding this suggestion. She insists that medications are working and should not be adjusted. She denies fevers or chills. Appetite is good. Review of Systems A complete review of systems was performed. Pertinent positives are noted above. All other systems are negative. Vital Signs Last 8 Hrs Date Time Temp Pulse Resp B/P (MAP) Pulse Ox O2 Delivery O2 Flow Rate FiO2 06/22/17 08:00 Room Air 06/22/17 07:06 37.0 49 18 156/78 (104) 95 Room Air Last Recorded Weight Weight (Kilograms): 75.000 Physical Exam General Appearance: WD/WN, no apparent distress Head: normocephalic, atraumatic Eyes: normal inspection, sclerae normal ENT: normal ENT inspection, pharynx normal Neck: supple, no JVD Respiratory/Chest: lungs clear, no respiratory distress, no accessory muscle use Cardiovascular: regular rate, rhythm, no edema Abdomen/GI: non tender, soft Extremities/Musculoskelatal: normal inspection, no pedal edema Neurologic/Psych: alert, normal mood/affect Family History FH: dementia MOTHER FH: diabetes mellitus SISTER GRANDMOTHER FH: heart disease FATHER MOTHER FH: lung cancer FATHER FH: rheumatoid arthritis SISTER FHx: heart disease Social History Smoking Status: Never smoker Drug Use: none Marital Status: single Housing Status: lives alone Occupation: disabled Laboratory Results Past 24 Hours 06/22/17 05:29 Red Blood Count 3.02, Mean Corpuscular Volume 90.4, Mean Corpuscular Hemoglobin 30.5, Mean Corpuscular Hemoglobin Concent 33.7, Mean Platelet Volume 10.1, Neutrophils (%) (Auto) 66.9, Lymphocytes (%) (Auto) 18.9, Monocytes (%) (Auto) 12.0, Eosinophils (%) (Auto) 1.7, Basophils (%) (Auto) 0.3, Neutrophils # (Auto ) 6.66, Lymphocytes # (Auto) 1.88, Monocytes # (Auto) 1.19, Eosinophils # (Auto ) 0.17, Basophils # (Auto) 0.03 06/22/17 05:29 Test 06/21/17 11:51 06/21/17 16:39 06/21/17 20:18 06/22/17 05:29 Bedside Glucose 248 mg/dl (70-90) 218 mg/dl (70-90) 196 mg/dl (70-90) White Blood Count 9.95 K/uL (4.8-10.8) Red Blood Count 3.02 M/uL (4.2-5.4) Hemoglobin 9.2 g/dL (12.0-16.0) Hematocrit 27.3 % (37-47) Mean Corpuscular Volume 90.4 fL (80-100) Mean Corpuscular Hemoglobin 30.5 pg (25-34) Mean Corpuscular Hemoglobin Concent 33.7 g/dl (32-36) Platelet Count 139 K/uL (130-400) Mean Platelet Volume 10.1 fL (7.4-10.4) Neutrophils (%) (Auto) 66.9 % Lymphocytes (%) (Auto) 18.9 % Monocytes (%) (Auto) 12.0 % Eosinophils (%) (Auto) 1.7 % Basophils (%) (Auto) 0.3 % Neutrophils # (Auto) 6.66 K/uL (1.4-6.5) Lymphocytes # (Auto) 1.88 K/uL (1.2-3.4) Monocytes # (Auto) 1.19 K/uL (0.11-0.59) Eosinophils # (Auto) 0.17 K/uL (0-0.5) Basophils # (Auto) 0.03 K/uL (0-0.2) RDW Standard Deviation 49.1 fL (36.4-46.3) RDW Coefficient of Variation 14.8 % (11.5-14.5) Immature Granulocyte % (Auto) 0.2 % Immature Granulocyte # (Auto) 0.02 K/uL (0.00-0.02) Anion Gap 8.0 mmol/L (3-11) Est Creatinine Clear Calc Drug Dose 50.1 ml/min Estimated GFR () 55.4 Estimated GFR (Non- 47.8 BUN/Creatinine Ratio 25.2 (10-20) Calcium Level 8.2 mg/dl (8.5-10.1) Magnesium Level 1.8 mg/dl (1.8-2.4) Test 06/22/17 07:33 Bedside Glucose 171 mg/dl (70-90) Allergies Coded Allergies: Penicillins (Verified Allergy, Mild, ITCHY, ANXIETY, 06/20/17) Loperamide (Verified Allergy, Unknown, 06/20/17) Vancomycin (Verified Allergy, Unknown, 06/20/17) Ziprasidone (Verified Allergy, Unknown, itching, 06/20/17) Medications Current Inpatient Medications Medications (Trade) Dose Ordered Sig/Suyapa Route Start Time Stop Time Status Last Admin Dose Admin Acetaminophen (Tylenol Tab) 650 mg Q4H PRN PO 06/20/17 04:30 07/20/17 04:29 06/21/17 00:43 650 MG Al Hydrox/Mg Hydrox/Simethicone (Maalox Max Susp) 15 ml Q4H PRN PO 06/20/17 04:30 07/20/17 04:29 Magnesium Hydroxide (Milk Of Magnesia Susp) 30 ml Q6H PRN PO 06/20/17 04:30 07/20/17 04:29 Polyethylene (Miralax Powder Packet) 17 gm DAILY PRN PO 06/20/17 04:30 07/20/17 04:29 Ondansetron HCl (Zofran Inj) 4 mg Q6H PRN IV 06/20/17 04:30 07/20/17 04:29 Heparin Sodium (Porcine) (Heparin Sq 5000 Unit/0.5ml) 5,000 unit Q12H SQ 06/20/17 08:00 07/20/17 07:59 Aspirin (Ecotrin Tab) 81 mg DAILY PO 06/20/17 08:00 07/20/17 08:59 06/22/17 07:58 81 MG Baclofen (Lioresal Tab) 10 mg TID PO 06/20/17 08:00 07/20/17 08:59 06/22/17 08:02 10 MG Cyclosporine (Neoral Cap) 50 mg BID PO 06/20/17 08:00 07/20/17 08:59 06/22/17 07:57 50 MG Duloxetine HCl (Cymbalta Cap) 30 mg DAILY PO 06/20/17 08:00 07/20/17 08:59 06/22/17 08:00 30 MG Famotidine (Pepcid Tab) 20 mg TID PO 06/20/17 08:00 07/20/17 08:59 06/22/17 07:58 20 MG Isosorbide Mononitrate (Imdur Ext Rel Tab) 60 mg QAM PO 06/20/17 08:00 07/20/17 08:59 06/22/17 08:01 60 MG Mycophenolate Mofetil (Cellcept Cap) 250 mg BID PO 06/20/17 08:00 07/20/17 08:59 06/22/17 08:02 250 MG Nitroglycerin (Nitrostat Tab) 0.4 mg UD PRN SL 06/20/17 04:30 07/20/17 04:29 Multivitamins/ Minerals (Multivitamin W/ Minerals Tab) 1 tab DAILY PO 06/20/17 08:00 07/20/17 08:59 06/22/17 08:01 1 TAB Ondansetron HCl (Zofran Odt) 4 mg Q6H PRN SL 06/20/17 04:30 07/20/17 04:29 Rosuvastatin Calcium (Crestor Tab) 5 mg DAILY PO 06/20/17 08:00 07/20/17 08:59 06/22/17 08:02 5 MG Temazepam (Restoril Cap) 15 mg HS PO 06/20/17 21:00 07/20/17 20:59 06/21/17 21:02 15 MG Pantoprazole Sodium (Protonix Tab) 40 mg DAILY PO 06/20/17 08:00 07/20/17 08:59 06/22/17 08:01 40 MG Magnesium Oxide (Mag-Ox Tab) 400 mg QAM PO 06/20/17 08:00 07/20/17 08:59 06/22/17 07:58 400 MG Miscellaneous (Iv Fluids Completed) 1 ea PRN PRN N/A 06/20/17 05:45 06/20/18 05:44 06/21/17 07:19 1 EA Gabapentin (Neurontin Cap) 400 mg DAILY PO 06/20/17 08:00 07/20/17 08:59 06/22/17 08:00 400 MG Glucose (Glucose 40% Gel) 15-30 GRAMS 15 GRAMS... UD PRN PO 06/20/17 07:00 07/20/17 06:59 Glucose (Glucose Chew Tab) 4-8 Tablets 4 Tabl... UD PRN PO 06/20/17 07:00 07/20/17 06:59 Dextrose (Dextrose 50% 50ML Syringe) 25-50ML OF 50% DW IV FOR... UD PRN IV 06/20/17 07:00 07/20/17 06:59 Glucagon (Glucagon Inj) 1 mg UD PRN SQ 06/20/17 07:00 07/20/17 06:59 Insulin Aspart (novoLOG ASPART) SLIDING SCALE If C... ACHS SC 06/20/17 16:30 07/20/17 16:29 06/21/17 21:11 1 UNITS Glucose (Glucose 40% Gel) 15-30 GRAMS 15 GRAMS... UD PRN PO 06/20/17 13:45 07/20/17 13:44 Glucose (Glucose Chew Tab) 4-8 Tablets 4 Tabl... UD PRN PO 06/20/17 13:45 07/20/17 13:44 Dextrose (Dextrose 50% 50ML Syringe) 25-50ML OF 50% DW IV FOR... UD PRN IV 06/20/17 13:45 07/20/17 13:44 Glucagon (Glucagon Inj) 1 mg UD PRN SQ 06/20/17 13:45 07/20/17 13:44 Ertapenem 1 gm/ Sodium Chloride 50 ml @ 120 mls/hr DAILY@1600 IV 06/20/17 16:00 06/30/17 15:59 06/21/17 16:58 120 MLS/HR Carvedilol (Coreg Tab) 12.5 mg BID PO 06/21/17 20:00 07/20/17 08:59 06/21/17 21:03 12.5 MG Insulin Glargine (Lantus Solostar Pen) 25 units QAM SC 06/22/17 08:00 07/20/17 08:59 06/22/17 10:25 25 UNITS Impression (1) Acute kidney injury (2) Benign hypertension (3) Kidney transplant status, cadaveric Kecia is a 57-year-old female with 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 She has a functional donor kidney transplant. Baseline creatinine has been approximately 1.2 mg/dL. Kecia presented with IRIS consistent with ATN and prerenal azotemia. Creatinine improved with IVF. Volume status currently appears appropriate.She has a history of recurrent episodes of IRIS. She has been having diarrhea. C diff was negative. Kecia has had fevers and a notable leukocytosis. ID consult is following. Kecia was recently admitted to the hospital in April with Flu. She is currently being treated with ertapenem. At home she was on lisinopril 5 milligrams p.o. daily which is on hold since admission. Blood pressure slightly elevated. Lisinopril may be restarted at this time. Recommendations -- Continue on cyclosporine and Cellcept: patient appears to be tolerating medications well -- Restart lisinopril 5 mg daily -- Document I/O's -- Medications are appropriate for kidney function -- ID consult appreciated
[2017-06-22 15:14] VITALS: BP 145/75; PULSE 53; TEMP 36.8; O2SAT 94
[2017-06-22 16:03] VITALS: O2SAT 94
[2017-06-22] MEDS: ERTAPENEM IV 1 GM in SODIUM CHLOR 0.9% AD-VAN 50ML 50 ML IV SCH (16:53)
--- NOTE | 2017-06-22 16:55 | EMERGENCY ROOM VISIT NOTE ---
ED Visit Note First contact with patient: 00:58 Physician Pipe Recovery Specialist Supervision Note: I interviewed and examined the patient. Discussed with Lu Faustin PA-C and agree with findings and plan as documented in the note. Any exceptions or clarifications are listed here: [None] Documented By: Destiny Andrews
[2017-06-22] MEDS: TEMAZEPAM 15 MG CAP PO SCH (21:24)
[2017-06-22 21:27] VITALS: BP 128/66; PULSE 53
--- NOTE | 2017-06-22 23:21 | Progress Note ---
Subjective Date of Service: Jun 22, 2017. Subjective Pt evaluation today including: conversation w/ patient Patient was pleasant but did not want to have a long discussion with me. She states that she is feeling better. Patient though is ok with restarting lisinopril but does not want any other changes today. She is not having any chest pain or shortness of breath, no cough, no abdominal pain, no diarrhea. No fever spike this past night Problem List Medical Problems: (1) Acute diarrhea Status: Acute (2) Acute kidney injury Status: Acute (3) Dehydration Status: Acute (4) Diarrhea Status: Acute (5) Generalized weakness Status: Acute (6) Immunosuppression Status: Acute (7) Influenza A Status: Acute (8) Lower abdominal pain Status: Acute (9) Mood disorder Status: Acute (10) Nausea & vomiting Status: Acute (11) Renal insufficiency Status: Acute (12) Sepsis Status: Acute (13) Thrombocytopenia Status: Acute (14) Urinary tract infection Status: Acute (15) Weakness Status: Acute Review of Systems All Other Systems: Reviewed and Negative Objective Vital Signs Date Time Temp Pulse Resp B/P (MAP) Pulse Ox O2 Delivery O2 Flow Rate FiO2 06/22/17 21:27 53 128/66 (86) 06/22/17 16:03 94 Room Air 06/22/17 15:14 36.8 53 18 145/75 (98) 94 Room Air 06/22/17 08:00 Room Air 06/22/17 07:06 37.0 49 18 156/78 (104) 95 Room Air 06/22/17 00:00 Room Air 06/21/17 23:58 36.9 61 17 149/67 (94) 98 Room Air 06/21/17 23:55 36.9 61 17 149/67 (94) 98 Room Air Physical Exam Comments: General Appearance: no apparent distress (Drowsy, but wakes up to answer my questions appropriately) Eyes: normal inspection, sclerae normal ENT: hearing grossly normal Neck: trachea midline Respiratory/Chest: lungs clear, normal breath sounds, no respiratory distress, no accessory muscle use Cardiovascular: regular rate, rhythm, no edema, no gallop, no murmur Abdomen: normal bowel sounds, non tender, soft Extremities: non-tender, normal inspection, no pedal edema, no calf tenderness Neurologic/Psychiatric: + pertinent finding (Flat affect) Skin: normal color, warm/dry, no rash Laboratory Results Last 24 Hours Test 06/22/17 05:29 06/22/17 07:33 06/22/17 11:31 06/22/17 16:38 White Blood Count 9.95 K/uL Red Blood Count 3.02 M/uL Hemoglobin 9.2 g/dL Hematocrit 27.3 % Mean Corpuscular Volume 90.4 fL Mean Corpuscular Hemoglobin 30.5 pg Mean Corpuscular Hemoglobin Concent 33.7 g/dl Platelet Count 139 K/uL Mean Platelet Volume 10.1 fL Neutrophils (%) (Auto) 66.9 % Lymphocytes (%) (Auto) 18.9 % Monocytes (%) (Auto) 12.0 % Eosinophils (%) (Auto) 1.7 % Basophils (%) (Auto) 0.3 % Neutrophils # (Auto) 6.66 K/uL Lymphocytes # (Auto) 1.88 K/uL Monocytes # (Auto) 1.19 K/uL Eosinophils # (Auto) 0.17 K/uL Basophils # (Auto) 0.03 K/uL RDW Standard Deviation 49.1 fL RDW Coefficient of Variation 14.8 % Immature Granulocyte % (Auto) 0.2 % Immature Granulocyte # (Auto) 0.02 K/uL Sodium Level 137 mmol/L Potassium Level 4.1 mmol/L Chloride Level 109 mmol/L Carbon Dioxide Level 20 mmol/L Anion Gap 8.0 mmol/L Blood Urea Nitrogen 31 mg/dl Creatinine 1.24 mg/dl Est Creatinine Clear Calc Drug Dose 50.1 ml/min Estimated GFR () 55.4 Estimated GFR (Non- 47.8 BUN/Creatinine Ratio 25.2 Random Glucose 191 mg/dl Calcium Level 8.2 mg/dl Magnesium Level 1.8 mg/dl Bedside Glucose 171 mg/dl 245 mg/dl 144 mg/dl Test 06/22/17 20:08 Bedside Glucose 213 mg/dl Assessment and Plan This patient is a 57 yo female with a history of renal transplant on chronic immunosuppressive therapy, CKD stage III, recent resistant UTI and bacteremia, chronic systolic CHF, moderate aortic stenosis and mitral regurgitation, CAD with history of UT, TAMARA not on CPAP, SLE, and schizoaffective disorder, here with sepsis as evidenced by tachycardia, fever, leukocytosis, with abnormal UA, and diarrhea. Sepsis/abnormal UA-urine culture with mixed organisms but UA seemed marginally positive. Was just discharged and completed IV Invanz for 14 day course for ESBL E. coli bacteremia and UTI. Given her immunosuppressed state, will continue antibiotics and follow cultures. Diarrhea has resolved and C. difficile antigen was negative, stool culture is pending but fecal leuks are negative. Not likely the source of her sepsis. Her pro-calcitonin is negative which is interesting. WBC normalized. No fever -Follow blood cultures -Continue Invanz -Appreciate infectious disease consultation -check rapid Flu PCR now -Follow CBC -IV fluids discontinued as she is eating and drinking and has been volume resuscitated IRIS in the setting of CKD III/history of renal transplant on chronic immunosuppressive therapy/non-anion gap metabolic acidosis-creatinine has significant improvement today down to 1.77 from 2.42 after receiving IV fluids pointing towards a prerenal acidemia. Non-AG acidosis could be due to loose stools and diarrhea with GI bicarbonate losses. Her urine output has picked up with IV fluid hydration she was likely volume depleted. -Okay to DC IV fluids -Appreciate nephrology consultation -Maintain cyclosporine and CellCept home doses -Follow PRP -restarting lisinopril today Anemia-has anemia of chronic kidney disease, baseline usually around 10. Her hemoglobin was hemoconcentrated on admission at 13.6 and has dropped to 9.9 today likely from hemodilution, but I feel this is around her baseline and not from acute blood loss -Follow CBC CAD with history of cath/stent placement/chronic systolic CHF/ischemic cardiomyopathy/moderate /moderate MR-echo done within the last 6 months showed LVEF 30-35% with wall motion abnormalities, valvular disease. Nuclear medicine stress test shortly after that showed a large area of infarct in the RCA territory, no ischemia. - cont ASA, Imdur, statin -Her Coreg is listed as 25 mg daily which is not held Coreg should be dosed-we will change her today to 12.5 mg p.o. twice daily - Nitrostat SL prn DM 2, on long-term insulin, hemoglobin A1c here 7.9% a few weeks ago -Maintain basal bolus regimen -Holding Victoza while inpatient TAMARA-not on CPAP GERD-stable - continue famotidine and ppi HTN-stable -restarting lisinopril today -Changing carvedilol to 12.5 mg p.o. twice daily (from listed 25 mg once daily) HLD - statin as above Neuropathic pain - continue Gabapentin -Continue baclofen for face spasms Insomnia - continue restoril Schizoaffective disorder-stable SLE-quiescent, not on medications Prophylaxis-heparin SQ Disposition-remain here until medically stable for discharge, will need PT/OT consultations given generalized weakness
[2017-06-22 23:32] VITALS: BP 161/80; PULSE 59; TEMP 37.2; O2SAT 97
[2017-06-23] MEDS: INSULIN ASPART 100 UNITS/ML 3 ML PEN SC SCH ×4 (06:30→21:35)
[2017-06-23 07:19] VITALS: BP 162/82; PULSE 62; TEMP 36.9; O2SAT 98
--- NOTE | 2017-06-23 07:19 | Nephrology Progress Note ---
Nephrology Progress Note Date of Service Jun 23, 2017. Chief Complaint Kidney transplant, IRIS Subjective No acute events overnight. Kecia was resting comfortably in bed this morning. She denies abdominal pain. Diarrhea has resolved. No fevers or chills. Appetite is good. Kecia states that she is going home today. She will follow up with Dr. Washington as an outpatient. Review of Systems A complete review of systems was performed. Pertinent positives are noted above. All other systems are negative. Vital Signs Last 8 Hrs Date Time Temp Pulse Resp B/P (MAP) Pulse Ox O2 Delivery O2 Flow Rate FiO2 06/23/17 00:00 Room Air 06/22/17 23:32 37.2 59 18 161/80 (107) 97 Room Air Last Recorded Weight Weight (Kilograms): 75.000 Physical Exam General Appearance: no apparent distress, + obese Head: normocephalic, atraumatic Eyes: normal inspection, sclerae normal ENT: normal ENT inspection, pharynx normal Neck: supple, no JVD Respiratory/Chest: lungs clear, no respiratory distress, no accessory muscle use Cardiovascular: regular rate, rhythm, no murmur Abdomen/GI: non tender, soft Extremities/Musculoskelatal: normal inspection, no pedal edema Neurologic/Psych: alert, + depressed affect Family History FH: dementia MOTHER FH: diabetes mellitus SISTER GRANDMOTHER FH: heart disease FATHER MOTHER FH: lung cancer FATHER FH: rheumatoid arthritis SISTER FHx: heart disease Social History Smoking Status: Never smoker Drug Use: none Marital Status: single Housing Status: lives alone Occupation: disabled Laboratory Results Past 24 Hours Test 06/22/17 07:33 06/22/17 11:31 06/22/17 16:38 06/22/17 20:08 Bedside Glucose 171 mg/dl (70-90) 245 mg/dl (70-90) 144 mg/dl (70-90) 213 mg/dl (70-90) Test 06/23/17 07:01 Allergies Coded Allergies: Penicillins (Verified Allergy, Mild, ITCHY, ANXIETY, 06/20/17) Loperamide (Verified Allergy, Unknown, 06/20/17) Vancomycin (Verified Allergy, Unknown, 06/20/17) Ziprasidone (Verified Allergy, Unknown, itching, 06/20/17) Medications Current Inpatient Medications Medications (Trade) Dose Ordered Sig/Suyapa Route Start Time Stop Time Status Last Admin Dose Admin Acetaminophen (Tylenol Tab) 650 mg Q4H PRN PO 06/20/17 04:30 07/20/17 04:29 06/21/17 00:43 650 MG Al Hydrox/Mg Hydrox/Simethicone (Maalox Max Susp) 15 ml Q4H PRN PO 06/20/17 04:30 07/20/17 04:29 Magnesium Hydroxide (Milk Of Magnesia Susp) 30 ml Q6H PRN PO 06/20/17 04:30 07/20/17 04:29 Polyethylene (Miralax Powder Packet) 17 gm DAILY PRN PO 06/20/17 04:30 07/20/17 04:29 Ondansetron HCl (Zofran Inj) 4 mg Q6H PRN IV 06/20/17 04:30 07/20/17 04:29 Heparin Sodium (Porcine) (Heparin Sq 5000 Unit/0.5ml) 5,000 unit Q12H SQ 06/20/17 08:00 07/20/17 07:59 Aspirin (Ecotrin Tab) 81 mg DAILY PO 06/20/17 08:00 07/20/17 08:59 06/22/17 07:58 81 MG Baclofen (Lioresal Tab) 10 mg TID PO 06/20/17 08:00 07/20/17 08:59 06/22/17 21:22 10 MG Cyclosporine (Neoral Cap) 50 mg BID PO 06/20/17 08:00 07/20/17 08:59 06/22/17 21:24 50 MG Duloxetine HCl (Cymbalta Cap) 30 mg DAILY PO 06/20/17 08:00 07/20/17 08:59 06/22/17 08:00 30 MG Famotidine (Pepcid Tab) 20 mg TID PO 06/20/17 08:00 07/20/17 08:59 06/22/17 21:23 20 MG Isosorbide Mononitrate (Imdur Ext Rel Tab) 60 mg QAM PO 06/20/17 08:00 07/20/17 08:59 06/22/17 08:01 60 MG Mycophenolate Mofetil (Cellcept Cap) 250 mg BID PO 06/20/17 08:00 07/20/17 08:59 06/22/17 21:25 250 MG Nitroglycerin (Nitrostat Tab) 0.4 mg UD PRN SL 06/20/17 04:30 07/20/17 04:29 Multivitamins/ Minerals (Multivitamin W/ Minerals Tab) 1 tab DAILY PO 06/20/17 08:00 07/20/17 08:59 06/22/17 08:01 1 TAB Ondansetron HCl (Zofran Odt) 4 mg Q6H PRN SL 06/20/17 04:30 07/20/17 04:29 Rosuvastatin Calcium (Crestor Tab) 5 mg DAILY PO 06/20/17 08:00 07/20/17 08:59 06/22/17 08:02 5 MG Temazepam (Restoril Cap) 15 mg HS PO 06/20/17 21:00 07/20/17 20:59 06/22/17 21:24 15 MG Pantoprazole Sodium (Protonix Tab) 40 mg DAILY PO 06/20/17 08:00 07/20/17 08:59 06/22/17 08:01 40 MG Magnesium Oxide (Mag-Ox Tab) 400 mg QAM PO 06/20/17 08:00 07/20/17 08:59 06/22/17 07:58 400 MG Miscellaneous (Iv Fluids Completed) 1 ea PRN PRN N/A 06/20/17 05:45 06/20/18 05:44 06/21/17 07:19 1 EA Gabapentin (Neurontin Cap) 400 mg DAILY PO 06/20/17 08:00 07/20/17 08:59 06/22/17 08:00 400 MG Glucose (Glucose 40% Gel) 15-30 GRAMS 15 GRAMS... UD PRN PO 06/20/17 07:00 07/20/17 06:59 Glucose (Glucose Chew Tab) 4-8 Tablets 4 Tabl... UD PRN PO 06/20/17 07:00 07/20/17 06:59 Dextrose (Dextrose 50% 50ML Syringe) 25-50ML OF 50% DW IV FOR... UD PRN IV 06/20/17 07:00 07/20/17 06:59 Glucagon (Glucagon Inj) 1 mg UD PRN SQ 06/20/17 07:00 07/20/17 06:59 Insulin Aspart (novoLOG ASPART) SLIDING SCALE If C... ACHS SC 06/20/17 16:30 07/20/17 16:29 06/22/17 12:10 3 UNITS Glucose (Glucose 40% Gel) 15-30 GRAMS 15 GRAMS... UD PRN PO 06/20/17 13:45 07/20/17 13:44 Glucose (Glucose Chew Tab) 4-8 Tablets 4 Tabl... UD PRN PO 06/20/17 13:45 07/20/17 13:44 Dextrose (Dextrose 50% 50ML Syringe) 25-50ML OF 50% DW IV FOR... UD PRN IV 06/20/17 13:45 07/20/17 13:44 Glucagon (Glucagon Inj) 1 mg UD PRN SQ 06/20/17 13:45 07/20/17 13:44 Ertapenem 1 gm/ Sodium Chloride 50 ml @ 120 mls/hr DAILY@1600 IV 06/20/17 16:00 06/30/17 15:59 06/22/17 16:53 120 MLS/HR Carvedilol (Coreg Tab) 12.5 mg BID PO 06/21/17 20:00 07/20/17 08:59 06/21/17 21:03 12.5 MG Insulin Glargine (Lantus Solostar Pen) 25 units QAM SC 06/22/17 08:00 07/20/17 08:59 06/22/17 10:25 25 UNITS Lisinopril (Zestril Tab) 5 mg QAM PO 06/23/17 08:00 07/23/17 07:59 Lisinopril (Zestril Tab) 5 mg QAM PO 06/23/17 08:00 07/23/17 07:59 UNV Impression (1) Acute kidney injury (2) Benign hypertension (3) Kidney transplant status, cadaveric Kecia is a 57-year-old female with 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 She has a functional donor kidney transplant. Baseline creatinine has been approximately 1.2 mg/dL. Kecia presented with IRIS consistent with ATN and prerenal azotemia. Creatinine improved with IVF. Volume status currently appears appropriate.She has a history of recurrent episodes of IRIS. She presented with diarrhea. C diff was negative. Kecia has had fevers and a notable leukocytosis. Blood cultures negative. urine culture polymicrobial. Symptoms have improved. Kecia was recently admitted to the hospital in April with Flu. She is currently being treated with ertapenem. Blood pressure improved. Lisinopril 5 mg daily restarted yesterday. Recommendations -- Continue on cyclosporine and Cellcept at current dose -- Follow up with Dr. Washington post discharge (suggest 1-2 week follow up) regarding IRIS/transplant -- Continue lisinopril 5 mg daily, carvedilol 12.5 mg BID, Imdur 60 mg QAM -- Metabolic profile pending this morning -- Document I/O's -- Medications are appropriate for kidney function -- Check metabolic profile within 1 week of hospital discharge
[2017-06-23 08:00] VITALS: O2SAT 98
[2017-06-23] MEDS: HEPARIN SOD 5000 UNIT/0.5 ML CARP SQ SCH ×2 (08:00→20:00)
[2017-06-23] MEDS ORDERED: LISINOPRIL 5 MG TAB PO SCH (08:00)
[2017-06-23] MEDS: MYCOPHENOLATE MOFETIL 250 MG CAP (CELLCEPT) PO SCH ×2 (09:50→21:23)
[2017-06-23] MEDS: CycloSPORINE (NEORAL) 25 MG CAP PO SCH ×2 (09:50→21:24)
[2017-06-23] MEDS: FAMOTIDINE 20 MG TAB PO SCH ×3 (09:50→21:23)
[2017-06-23] MEDS: DULOXETINE (CYMBALTA) 30 MG CAP PO SCH (09:51)
[2017-06-23] MEDS: CARVEDILOL 12.5 MG TAB PO SCH ×2 (09:51→21:23)
[2017-06-23] MEDS: ROSUVASTATIN CALCIUM 5 MG TAB PO SCH (09:51)
[2017-06-23] MEDS: CEROVITE ADV FORMULA TAB PO SCH (09:52)
[2017-06-23] MEDS: ISOSORBIDE MONONITRATE 30 MG TABCR PO SCH (09:52)
[2017-06-23] MEDS: LISINOPRIL 5 MG TAB PO SCH (09:53)
[2017-06-23] MEDS: GABAPENTIN 400 MG CAP PO SCH (09:53)
[2017-06-23] MEDS: ASPIRIN 81 MG ECTAB PO SCH (09:53)
[2017-06-23] MEDS: MAGNESIUM OXIDE 400 MG TAB PO SCH (09:53)
[2017-06-23] MEDS: PANTOprazole SOD 40 MG TAB PO SCH (09:54)
[2017-06-23] MEDS: BACLOFEN 10 MG TAB PO SCH ×3 (09:54→21:23)
--- NOTE | 2017-06-23 10:44 | Progress Note ---
Subjective Date of Service: Jun 23, 2017. Subjective pt undergoing labs on my exam, nonverbal throughout exam, appears comfortable. afebrile. tolerating ertapenem. urine culture with contaminated specimen, finalized. blood cultures negative to date. all stool studies negative. no complaints but does not speak during exam. wbc much improved Problem List Medical Problems: (1) Acute diarrhea Status: Acute (2) Acute kidney injury Status: Acute (3) Dehydration Status: Acute (4) Diarrhea Status: Acute (5) Generalized weakness Status: Acute (6) Immunosuppression Status: Acute (7) Influenza A Status: Acute (8) Lower abdominal pain Status: Acute (9) Mood disorder Status: Acute (10) Nausea & vomiting Status: Acute (11) Renal insufficiency Status: Acute (12) Sepsis Status: Acute (13) Thrombocytopenia Status: Acute (14) Urinary tract infection Status: Acute (15) Weakness Status: Acute Objective Vital Signs Date Time Temp Pulse Resp B/P (MAP) Pulse Ox O2 Delivery O2 Flow Rate FiO2 06/23/17 07:19 36.9 62 18 162/82 (108) 98 Room Air 06/23/17 00:00 Room Air 06/22/17 23:32 37.2 59 18 161/80 (107) 97 Room Air 06/22/17 21:27 53 128/66 (86) 06/22/17 16:03 94 Room Air 06/22/17 15:14 36.8 53 18 145/75 (98) 94 Room Air Physical Exam General Appearance: WD/WN Eyes: normal inspection Neck: supple Respiratory/Chest: lungs clear, normal breath sounds, no respiratory distress Cardiovascular: regular rate, rhythm, no edema Abdomen: soft Extremities: non-tender Neurologic/Psychiatric: alert Skin: normal color Laboratory Results Item Value Date Time C.difficile Toxin B Gene (PCR) - Final Complete 06/20/17 171 Stool No C. difficile toxin B gene detected Rotavirus Antigen - Final Complete 06/20/171714 Stool Negative for Rotavirus Antigen Fungal Smear - Final Resulted 06/20/17 171 Stool WBC Smear - Final Complete 06/20/17 171 Stool Blood Culture - Preliminary Resulted 06/20/17 0437 Blood NO GROWTH TO DATE. Blood Culture - Preliminary Resulted 06/20/17 0434 Blood NO GROWTH TO DATE. Last 24 Hours Test 06/22/17 11:31 06/22/17 16:38 06/22/17 20:08 06/23/17 07:55 Bedside Glucose 245 mg/dl 144 mg/dl 213 mg/dl 126 mg/dl Test 06/23/17 10:14 Assessment and Plan (1) Leukocytosis Assessment & Plan: resolved, c diff negative, stool studies negative, urine culture with multiple organisms, clinically improved. Day 4 ertapenem, could follow off of abx. stable for d/c when otherwise stable.
[2017-06-23 11:03] LABS: ALBUMIN 2.5 gm/dl (3.4-5.0); CALCIUM 9.1 mg/dl (8.5-10.1); CREATININE 1.08 mg/dl (0.60-1.20); POTASSIUM 4.2 mmol/L (3.5-5.1)
[2017-06-23 12:28] VITALS: BP 139/76; PULSE 57; TEMP 37; O2SAT 95
[2017-06-23 15:54] VITALS: BP 162/90; PULSE 60; TEMP 36.7; O2SAT 96
[2017-06-23 16:00] VITALS: O2SAT 96
--- NOTE | 2017-06-23 16:19 | Hospitalist Progress Note ---
Hospitalist Progress Note Date of Service Jun 23, 2017. Subjective Pt evaluation today including: conversation w/ patient, physical exam, chart review, lab review, review of inpatient medication list Pain: None PO Intake: Pt refusing to eat today Voiding: no voiding problems Patient not really wanting to participate in interview. Denies any complaints. Per nursing, she is refusing to eat/drink and does not want to get OOB to void. The patient denies fevers, chills, sweats, chest pain, palpitations, claudication, cough, wheezing, shortness of breath, nausea, vomiting, abdominal pain, dysuria, hematuria, urinary retention, paralysis, weakness, numbness and tingling. Additional Comments: See HPI for pertinent positives and negatives. All other systems reviewed and negative. Objective Vital Signs Date Time Temp Pulse Resp B/P (MAP) Pulse Ox O2 Delivery O2 Flow Rate FiO2 06/23/17 15:54 36.7 60 20 162/90 (114) 96 Room Air 06/23/17 12:28 37.0 57 16 139/76 (97) 95 Room Air 06/23/17 08:00 98 Room Air 06/23/17 07:19 36.9 62 18 162/82 (108) 98 Room Air 06/23/17 00:00 Room Air 06/22/17 23:32 37.2 59 18 161/80 (107) 97 Room Air 06/22/17 21:27 53 128/66 (86) 06/22/17 16:03 94 Room Air Physical Exam Notes: General appearance: Well-developed, well-nourished, no apparent distress Head: Normocephalic, atraumatic Eyes: Normal inspection, PERRL, EOMI ENT: Normal ENT inspection, hearing grossly normal, pharynx normal Neck: Supple, no JVD, trachea midline Respiratory/Chest: Lungs clear to auscultation, normal breath sounds, no respiratory distress Cardiovascular: Regular rate & rhythm, no gallop, no murmur Abdomen/GI: Normal bowel sounds, non-tender, soft Extremities/Musculoskeletal: Normal inspection, no calf tenderness, no pedal edema Neurological/Psych: +Flat affect, not willing to participate. Alert, oriented x 3 Skin: Normal color, warm/dry, no rash Laboratory Results Last 24 Hours Test 06/22/17 16:38 06/22/17 20:08 06/23/17 07:55 06/23/17 10:14 Bedside Glucose 144 mg/dl 213 mg/dl 126 mg/dl Sodium Level 139 mmol/L Potassium Level 4.2 mmol/L Chloride Level 109 mmol/L Carbon Dioxide Level 20 mmol/L Anion Gap 10.0 mmol/L Blood Urea Nitrogen 19 mg/dl Creatinine 1.08 mg/dl Est Creatinine Clear Calc Drug Dose 57.5 ml/min Estimated GFR () 65.5 Estimated GFR (Non- 56.5 BUN/Creatinine Ratio 17.3 Random Glucose 142 mg/dl Calcium Level 9.1 mg/dl Phosphorus Level 4.0 mg/dl Albumin 2.5 gm/dl Test 06/23/17 11:46 Bedside Glucose 165 mg/dl Assessment and Plan 57 y/o female with a history of chronic systolic CHF, CAD with h/o IN, renal transplant, CKD stage III, recent UTI/bacteremia, TAMARA, SLE, and schizoaffective disorder who presents with sepsis and diarrhea. Sepsis/abnormal UA-urine culture with mixed organisms but UA seemed marginally positive. Recent ESBL E. coli bacteremia/UTI treated w/Invanz--improving -Leukocytosis resolved, WBC 9.95 on 06/23, down from 20.38 -Afebrile since 06/21 -Blood cultures NGTD -Infectious disease consulted, appreciate recs: C. diff negative, stool studies negative, urine culture with multiple organisms, clinically improved. Day 4 ertapenem, could follow off of abx -Ertapenem d/c'd per ID recs -Flu PCR negative Diarrhea--improved -C. diff negative -Stool cultures negative IRIS on CKD stage III, h/o renal transplant on chronic immunosuppression-- resolved -Creatinine 1.08 on 06/23, down from 1.24 -Nephrology consulted, appreciate recs: Continue cyclosporine and Cellcept. Continue lisinopril, Coreg, Imdur. Document I/O's. Check metabolic profile w/ in 1 week discharge Anemia of chronic disease--stable -Hgb stable at 9.2, continue to monitor CAD with history of cath/stent placement, HTN, HLD, chronic systolic CHF--stable - Continue ASA, Imdur 60 mg PO qd, Crestor 5 mg PO qd, Coreg decreased to 12.5 mg PO BID DM II--last HgbA1c 7.9 on 3.5 -Hold Victoza -Lantus 12 units SC qam -Insulin sliding scale -Check BSGs q ac and qhs GERD-stable - Continue famotidine and ppi Neuropathic pain - continue Gabapentin 400 mg PO TID -Continue baclofen for face spasms Insomnia - continue restoril 15 mg PO hs Schizoaffective disorder--pt refusing to eat/drink or get out of bed -Continue Cymbalta 30 mg PO qd SLE--noted DVT prophylaxis -Heparin 5000 units SC q12h Dispo -PT attempted to see, pt refusing -OT recommends rehab vs home health depending on progress
[2017-06-23] MEDS: COLESTIPOL HCL 1 GM TAB PO SCH (21:23)
[2017-06-23] MEDS: TEMAZEPAM 15 MG CAP PO SCH (21:24)
[2017-06-23 23:59] VITALS: O2SAT 96
[2017-06-24] VITALS (7 sets, daily range): BP systolic 99–152; BP diastolic 63–88; PULSE 56–68; TEMP 36.8–36.9; O2SAT 92–96
[2017-06-24 06:16] LABS: HEMATOCRIT 28.8 % (37-47); HEMOGLOBIN 9.7 g/dL (12.0-16.0); MEAN CELL VOLUME 89.4 fL (80-100); MEAN CORPUSCULAR HEMOGLOBIN 30.1 pg (25-34); MEAN CORPUSCULAR HGB CONC 33.7 g/dl (32-36); MEAN PLATELET VOLUME 9.5 fL (7.4-10.4); PLATELET COUNT 201 K/uL (130-400); RED CELL DISTRIBUTION WIDTH CV 14.7 % (11.5-14.5); RED CELL DISTRIBUTION WIDTH SD 48.4 fL (36.4-46.3)
[2017-06-24 06:44] LABS: CALCIUM 8.7 mg/dl (8.5-10.1); CREATININE 1.08 mg/dl (0.60-1.20); POTASSIUM 4.5 mmol/L (3.5-5.1)
[2017-06-24] MEDS: HEPARIN SOD 5000 UNIT/0.5 ML CARP SQ SCH ×2 (08:00→20:00)
[2017-06-24] MEDS: INSULIN ASPART 100 UNITS/ML 3 ML PEN SC SCH ×4 (08:26→21:46)
[2017-06-24] MEDS: DULOXETINE (CYMBALTA) 30 MG CAP PO SCH (08:27)
[2017-06-24] MEDS: MYCOPHENOLATE MOFETIL 250 MG CAP (CELLCEPT) PO SCH ×2 (08:27→20:40)
[2017-06-24] MEDS: GABAPENTIN 400 MG CAP PO SCH (08:27)
[2017-06-24] MEDS: ASPIRIN 81 MG ECTAB PO SCH (08:27)
[2017-06-24] MEDS: MAGNESIUM OXIDE 400 MG TAB PO SCH (08:27)
[2017-06-24] MEDS: ROSUVASTATIN CALCIUM 5 MG TAB PO SCH (08:27)
[2017-06-24] MEDS: LISINOPRIL 5 MG TAB PO SCH (08:28)
[2017-06-24] MEDS: CEROVITE ADV FORMULA TAB PO SCH (08:28)
[2017-06-24] MEDS: CycloSPORINE (NEORAL) 25 MG CAP PO SCH ×2 (08:28→20:41)
[2017-06-24] MEDS: BACLOFEN 10 MG TAB PO SCH ×3 (08:28→20:41)
[2017-06-24] MEDS: FAMOTIDINE 20 MG TAB PO SCH ×3 (08:28→20:41)
[2017-06-24] MEDS: PANTOprazole SOD 40 MG TAB PO SCH (08:29)
[2017-06-24] MEDS: COLESTIPOL HCL 1 GM TAB PO SCH ×2 (08:29→20:41)
[2017-06-24] MEDS: ISOSORBIDE MONONITRATE 30 MG TABCR PO SCH (08:29)
[2017-06-24] MEDS: CARVEDILOL 12.5 MG TAB PO SCH ×2 (08:29→20:00)
[2017-06-24] MEDS: INSULIN GLARGINE SOLOSTAR 100 UNITS/ML 3 ML PEN SC SCH (09:15)
--- NOTE | 2017-06-24 10:10 | Nephrology Progress Note ---
Nephrology Progress Note Date of Service Jun 24, 2017. Chief Complaint Kidney transplant, IRIS Subjective No acute events overnight. Kecia refused to open her eyes for me today. She only answered a few simple questions before asking to be just left alone. She stated that she plans on going home soon. She denies any new complaints or concerns. Diarrhea improved. Patient is not eating. She is taking medications. She does not endorse any abdominal pain. No fevers. Review of Systems A complete review of systems was performed. Pertinent positives are noted above. All other systems are negative. Vital Signs Last 8 Hrs Date Time Temp Pulse Resp B/P (MAP) Pulse Ox O2 Delivery O2 Flow Rate FiO2 06/24/17 07:23 36.8 56 18 152/85 (107) 96 Room Air Last Recorded Weight Weight (Kilograms): 75.000 Physical Exam General Appearance: no apparent distress, + obese Head: normocephalic, atraumatic Eyes: normal inspection, sclerae normal ENT: normal ENT inspection, pharynx normal Neck: supple Respiratory/Chest: + pertinent finding (patient refused) Cardiovascular: + pertinent finding (patient refused) Abdomen/GI: + pertinent finding (patient refused) Extremities/Musculoskelatal: + pertinent finding (patient refused) Neurologic/Psych: alert, + depressed affect Family History FH: dementia MOTHER FH: diabetes mellitus SISTER GRANDMOTHER FH: heart disease FATHER MOTHER FH: lung cancer FATHER FH: rheumatoid arthritis SISTER FHx: heart disease Social History Smoking Status: Never smoker Drug Use: none Marital Status: single Housing Status: lives alone Occupation: disabled Laboratory Results Past 24 Hours 06/24/17 05:40 06/23/17 10:14 06/24/17 05:40 Test 06/23/17 10:14 06/23/17 11:46 06/23/17 17:23 06/23/17 20:43 Anion Gap 10.0 mmol/L (3-11) Est Creatinine Clear Calc Drug Dose 57.5 ml/min Estimated GFR () 65.5 Estimated GFR (Non- 56.5 BUN/Creatinine Ratio 17.3 (10-20) Calcium Level 9.1 mg/dl (8.5-10.1) Phosphorus Level 4.0 mg/dl (2.5-4.9) Albumin 2.5 gm/dl (3.4-5.0) Bedside Glucose 165 mg/dl (70-90) 153 mg/dl (70-90) 224 mg/dl (70-90) Test 06/24/17 05:40 Red Blood Count 3.22 M/uL (4.2-5.4) Mean Corpuscular Volume 89.4 fL (80-100) Mean Corpuscular Hemoglobin 30.1 pg (25-34) Mean Corpuscular Hemoglobin Concent 33.7 g/dl (32-36) RDW Standard Deviation 48.4 fL (36.4-46.3) RDW Coefficient of Variation 14.7 % (11.5-14.5) Mean Platelet Volume 9.5 fL (7.4-10.4) Anion Gap 9.0 mmol/L (3-11) Est Creatinine Clear Calc Drug Dose 57.5 ml/min Estimated GFR () 65.5 Estimated GFR (Non- 56.5 BUN/Creatinine Ratio 20.6 (10-20) Calcium Level 8.7 mg/dl (8.5-10.1) Allergies Coded Allergies: Penicillins (Verified Allergy, Mild, ITCHY, ANXIETY, 06/20/17) Loperamide (Verified Allergy, Unknown, 06/20/17) Vancomycin (Verified Allergy, Unknown, 06/20/17) Ziprasidone (Verified Allergy, Unknown, itching, 06/20/17) Medications Current Inpatient Medications Medications (Trade) Dose Ordered Sig/Suyapa Route Start Time Stop Time Status Last Admin Dose Admin Acetaminophen (Tylenol Tab) 650 mg Q4H PRN PO 06/20/17 04:30 07/20/17 04:29 06/21/17 00:43 650 MG Al Hydrox/Mg Hydrox/Simethicone (Maalox Max Susp) 15 ml Q4H PRN PO 06/20/17 04:30 07/20/17 04:29 Magnesium Hydroxide (Milk Of Magnesia Susp) 30 ml Q6H PRN PO 06/20/17 04:30 07/20/17 04:29 Polyethylene (Miralax Powder Packet) 17 gm DAILY PRN PO 06/20/17 04:30 07/20/17 04:29 Ondansetron HCl (Zofran Inj) 4 mg Q6H PRN IV 06/20/17 04:30 07/20/17 04:29 Heparin Sodium (Porcine) (Heparin Sq 5000 Unit/0.5ml) 5,000 unit Q12H SQ 06/20/17 08:00 07/20/17 07:59 Aspirin (Ecotrin Tab) 81 mg DAILY PO 06/20/17 08:00 07/20/17 08:59 06/24/17 08:27 81 MG Baclofen (Lioresal Tab) 10 mg TID PO 06/20/17 08:00 07/20/17 08:59 06/24/17 08:28 10 MG Cyclosporine (Neoral Cap) 50 mg BID PO 06/20/17 08:00 07/20/17 08:59 06/24/17 08:28 50 MG Duloxetine HCl (Cymbalta Cap) 30 mg DAILY PO 06/20/17 08:00 07/20/17 08:59 06/24/17 08:27 30 MG Famotidine (Pepcid Tab) 20 mg TID PO 06/20/17 08:00 07/20/17 08:59 06/24/17 08:28 20 MG Isosorbide Mononitrate (Imdur Ext Rel Tab) 60 mg QAM PO 06/20/17 08:00 07/20/17 08:59 06/24/17 08:29 60 MG Mycophenolate Mofetil (Cellcept Cap) 250 mg BID PO 06/20/17 08:00 07/20/17 08:59 06/24/17 08:27 250 MG Nitroglycerin (Nitrostat Tab) 0.4 mg UD PRN SL 06/20/17 04:30 07/20/17 04:29 Multivitamins/ Minerals (Multivitamin W/ Minerals Tab) 1 tab DAILY PO 06/20/17 08:00 07/20/17 08:59 06/24/17 08:28 1 TAB Ondansetron HCl (Zofran Odt) 4 mg Q6H PRN SL 06/20/17 04:30 07/20/17 04:29 Rosuvastatin Calcium (Crestor Tab) 5 mg DAILY PO 06/20/17 08:00 07/20/17 08:59 06/24/17 08:27 5 MG Temazepam (Restoril Cap) 15 mg HS PO 06/20/17 21:00 07/20/17 20:59 06/23/17 21:24 15 MG Pantoprazole Sodium (Protonix Tab) 40 mg DAILY PO 06/20/17 08:00 07/20/17 08:59 06/24/17 08:29 40 MG Magnesium Oxide (Mag-Ox Tab) 400 mg QAM PO 06/20/17 08:00 07/20/17 08:59 06/24/17 08:27 400 MG Miscellaneous (Iv Fluids Completed) 1 ea PRN PRN N/A 06/20/17 05:45 06/20/18 05:44 06/21/17 07:19 1 EA Gabapentin (Neurontin Cap) 400 mg DAILY PO 06/20/17 08:00 07/20/17 08:59 06/24/17 08:27 400 MG Glucose (Glucose 40% Gel) 15-30 GRAMS 15 GRAMS... UD PRN PO 06/20/17 07:00 07/20/17 06:59 Glucose (Glucose Chew Tab) 4-8 Tablets 4 Tabl... UD PRN PO 06/20/17 07:00 07/20/17 06:59 Dextrose (Dextrose 50% 50ML Syringe) 25-50ML OF 50% DW IV FOR... UD PRN IV 06/20/17 07:00 07/20/17 06:59 Glucagon (Glucagon Inj) 1 mg UD PRN SQ 06/20/17 07:00 07/20/17 06:59 Insulin Aspart (novoLOG ASPART) SLIDING SCALE If C... ACHS SC 06/20/17 16:30 07/20/17 16:29 06/23/17 21:35 2 UNITS Glucose (Glucose 40% Gel) 15-30 GRAMS 15 GRAMS... UD PRN PO 06/20/17 13:45 07/20/17 13:44 Glucose (Glucose Chew Tab) 4-8 Tablets 4 Tabl... UD PRN PO 06/20/17 13:45 07/20/17 13:44 Dextrose (Dextrose 50% 50ML Syringe) 25-50ML OF 50% DW IV FOR... UD PRN IV 06/20/17 13:45 07/20/17 13:44 Glucagon (Glucagon Inj) 1 mg UD PRN SQ 06/20/17 13:45 07/20/17 13:44 Carvedilol (Coreg Tab) 12.5 mg BID PO 06/21/17 20:00 07/20/17 08:59 06/24/17 08:29 12.5 MG Lisinopril (Zestril Tab) 5 mg QAM PO 06/23/17 08:00 07/23/17 07:59 06/24/17 08:28 5 MG Colestipol HCl (Colestid Tab) 1 gm BID PO 06/23/17 20:00 07/23/17 19:59 06/24/17 08:29 1 GM Insulin Glargine (Lantus Solostar Pen) 12 units QAM SC 06/24/17 08:00 07/20/17 08:59 06/24/17 09:15 12 UNITS Impression (1) Acute kidney injury (2) Benign hypertension (3) Kidney transplant status, cadaveric Kecia is a 57-year-old female with 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 She has a functional donor kidney transplant. Baseline creatinine has been approximately 1.2 mg/dL. Kecia presented with IRIS consistent with ATN and prerenal azotemia. Creatinine improved with IVF. Volume status currently appears appropriate. She has a history of recurrent episodes of IRIS. She presented with diarrhea. C diff was negative. Kecia has had fevers and a notable leukocytosis. Blood cultures negative. urine culture polymicrobial. Symptoms have improved. Kecia was recently admitted to the hospital in April with Flu. Ertapenem stopped yesterday. Recommendations -- Continue on cyclosporine and Cellcept at current dose -- Follow up with Dr. Washington post discharge (suggest 1-2 week follow up) regarding IRIS/transplant -- Continue lisinopril 5 mg daily, carvedilol 12.5 mg BID, Imdur 60 mg QAM -- Metabolic profile QAM while inpatient -- Document I/O's -- Medications are appropriate for kidney function -- Check metabolic profile within 1 week of hospital discharge
[2017-06-24] MEDS ORDERED: CRG125 PO (11:11)
--- NOTE | 2017-06-24 11:17 | Discharge Instructions ---
Discharge Instructions Date of Service Jun 24, 2017. Admission Reason for Admission: Sepsis Discharge Discharge Diagnosis / Problem: Suspected sepsis, no infection identified, IRIS Discharge Goals Goal(s): Improve function, Improve disease control Activity Recommendations Activity Limitations: resume your previous activity . Instructions / Follow-Up Instructions / Follow-Up Medications: - COREG: please note that the dose is decreased from 25mg twice a day to 12.5mg twice a day (this is half a tablet) Febrile illness: could have been due to diarrhea which has since resolved, urine culture showed no growth specifically no diarrhea for two days infectious disease recommended stopping antibiotics which were stopped yesterday Acute kidney injury with renal transplant resolved, Cr has been 1.0 for two days, making adequate urine cleared for discharge by nephrology recommend checking BMP in one week with results to Dr. Washington please call for appointment with Dr. Washington in 1-2 weeks for hospital follow up FOLLOW UP - Mikala FIGUEROA in one week, call for appointment - Dr. Washington in 2 weeks, call for appointment Current Hospital Diet Patient's current hospital diet: Regular Diet, Diabetes Type 2 Diet Discharge Diet Recommended Diet: Regular Diet, Diabetes Type 2 Diet Pending Studies Studies pending at discharge: no Laboratory Results Hemoglobin A1c Test 05/26/17 06:17 Range/Units Estimated Average Glucose 180 mg/dl Hemoglobin A1c 7.9 H 4.5-5.6 % Medical Emergencies . Who to Call and When: Medical Emergencies: If at any time you feel your situation is an emergency, please call 911 immediately. . Non-Emergent Contact Non-Emergency issues call your: Primary Care Provider, Formulator Compounder Call Non-Emergent contact if: you have a fever, you have any medication questions . . "Provider Documentation" section prepared by Wali Feliz. . [place] Drug Monitoring Program Search Results: no issues identified
--- NOTE | 2017-06-24 13:15 | Psychiatric Progress Notes ---
Psychiatric Progress Note Date of Service Jun 24, 2017. Notes Consult requested to evaluate "talking nonsense" on 06/23/17. Collaborated with attending, Dr. Feliz, today as it appears that she is being discharged. He agreed that no psych consult necessary at this time.
--- NOTE | 2017-06-24 14:19 | Discharge Summary ---
Discharge Summary Date of Service Jun 24, 2017. Discharge Summary Admission Date: Jun 21, 2017 at 09:17 Discharge Date: Jun 24, 2017 Discharge Disposition: Home with services Principal Diagnosis: Febrile illness, acute kidney injury Problems/Secondary Diagnoses: Chronic systolic CHF, CAD with h/o AL, renal transplant, CKD stage III, recent UTI/bacteremia, TAMARA, SLE, schizoaffective disorder Immunizations: Have You Had Influenza Vaccine: Yes History of Tetanus Vaccine?: Unknown History of Pneumococcal: Yes Pneumococcal Date: Jun 23, 2001 History of Hepatitis B Vaccine: Unknown Consultations: Infectious disease Nephrology Medication Reconciliation New Medications: Carvedilol (Carvedilol) 12.5 Mg Tab 12.5 MG PO BID, #30 TAB 3 Refills Continued Medications: Aspirin (Aspirin) 81 Mg Tab 1 TAB PO DAILY for 30 Days, #30 TAB 3 Refills Baclofen (Lioresal) 10 Mg Tab 10 MG PO TID, TAB Cyclosporine (Neoral) 25 Mg Cap 50 MG PO BID, CAP Dexlansoprazole (Dexilant) 30 Mg Cap 30 MG PO DAILY Diclofenac Sodium (Topical) (Voltaren 1% Top Gel) 1 % Gel 2-4 GM TD QID APPLY TO SHOULDER, LOWER BACK, KNEES OR HIP Duloxetine HCl (Cymbalta) 30 Mg Cap 1 CAP PO DAILY for 30 Days, #30 CAP 5 Refills Ergocalciferol (Vitamin D 83626 Unit) 50,000 Unit Cap 1 CAP PO WK for 28 Days, #4 CAP 2 Refills Famotidine (Pepcid) 20 Mg Tab 20 MG PO TID, TAB Gabapentin (Neurontin) 400 Mg Cap 1 CAP PO TID for 30 Days, #90 CAP 2 Refills Insulin Glargine (Lantus Solostar) 100 Unit/Ml Inj 20 UNITS SC QAM, PEN Isosorbide Mononitrate Ext Rel (Imdur Ext Rel) 30 Mg Tabcr 60 MG PO QAM, TAB Liraglutide (Victoza) 18 Mg/3 Ml Inj 1.8 MG SQ DAILY Lisinopril (Zestril) 5 Mg Tab 5 MG PO DAILY, TAB Multivitamin (Multivitamin) Tab 1 TAB PO DAILY, TAB Mycophenolate Mofetil (Cellcept) 250 Mg Cap 1 CAP PO BID for 90 Days, #180 CAP 3 Refills Nitroglycerin (Nitrostat) 0.4 Mg Tab 1 TAB SL UD PRN for Chest Pain, #100 TAB 3 Refills Ocuvite Preservision (Ocuvite Preservision) 1 Tab Tab 1 TAB PO DAILY, TAB Ondasetron Odt (Zofran Odt) 4 Mg Tab 4 MG SL Q6H PRN for Nausea, #6 TAB Rosuvastatin Calcium (Crestor) 5 Mg Tab 1 TAB PO DAILY for 30 Days, #30 TAB 5 Refills Temazepam (Restoril) 15 Mg Cap 15 MG PO HS, CAP Discontinued Medications: Carvedilol (Coreg) 25 Mg Tab 25 MG PO DAILY, TAB Discharge Exam Patient remains flat, not wanting to talk much to me or other providers. She denies any complaints and would like to go home. The patient denies fevers, chills, sweats, chest pain, palpitations, claudication, cough, wheezing, shortness of breath, nausea, vomiting, abdominal pain, dysuria, hematuria, urinary retention, paralysis, weakness, numbness and tingling. Constitutional: No fever, No chills, No sweats Eyes: No worsening of vision, No eye pain, No diplopia ENT: No hearing loss, No nasal symptoms, No trouble swallowing Respiratory: No cough, No wheezing, No shortness of breath Cardiovascular: No chest pain, No claudication, No palpitations Abdomen: No pain, No nausea, No vomiting Musculoskeletal: No joint pain, No muscle pain, No swelling Genitourinary - Female: No dysuria, No urinary retention, No hematuria Neurologic: No paralysis, No weakness, No numbness/tingling Integumentary: No rash, No itch, No color change General appearance: Well-developed, well-nourished, no apparent distress Head: Normocephalic, atraumatic Eyes: Normal inspection, PERRL, EOMI ENT: Normal ENT inspection, hearing grossly normal, pharynx normal Neck: Supple, no JVD, trachea midline Respiratory/Chest: Lungs clear to auscultation, normal breath sounds, no respiratory distress Cardiovascular: Regular rate & rhythm, no gallop, no murmur Abdomen/GI: Normal bowel sounds, non-tender, soft Extremities/Musculoskeletal: Normal inspection, no calf tenderness, no pedal edema Neurological/Psych: +Flat affect, not willing to participate. Alert, oriented x 3 Skin: Normal color, warm/dry, no rash Hospital Course 57 y/o female with a history of chronic systolic CHF, CAD with h/o AL, renal transplant, CKD stage III, recent UTI/bacteremia, TAMARA, SLE, and schizoaffective disorder who presents with sepsis and diarrhea. Possible sepsis/febrile illness w/leukocytosis, diarrhea--resolving -Recent ESBL E. coli bacteremia/UTI treated w/Invanz -UA abnormal but urine culture with 3 types of organisms -C. diff negative -Yeast not chadd albicans in stool, cultures otherwise negative -Leukocytosis resolved. Diarrhea resolving, may have caused febrile illness. No other definite source identified -Afebrile since 06/21 -Blood cultures NGTD -Infectious disease consulted, appreciate recs: C. diff negative, stool studies negative, urine culture with multiple organisms, clinically improved. Follow off of abx -Ertapenem d/c'd per ID recs, no further s/s infection -Flu PCR negative IRIS on CKD stage III, h/o renal transplant on chronic immunosuppression-- resolved -Creatinine remains stable at 1.08 -Nephrology consulted, appreciate recs: Continue cyclosporine and Cellcept. Continue lisinopril, Coreg, Imdur. Document I/O's. Check metabolic profile w/ in 1 week discharge Anemia of chronic disease--stable -Hgb stable at 9.7, continue to monitor CAD with history of cath/stent placement, HTN, HLD, chronic systolic CHF--stable - Continue ASA, Imdur 60 mg PO qd, Crestor 5 mg PO qd, Coreg decreased to 12.5 mg PO BID DM II--last HgbA1c 7.9 on 3.5 -Hold Victoza -Lantus 12 units SC qam -Insulin sliding scale -Check BSGs q ac and qhs GERD-stable - Continue famotidine and ppi Neuropathic pain -Continue Gabapentin 400 mg PO TID -Continue baclofen for face spasms Insomnia - continue Restoril 15 mg PO hs Schizoaffective disorder--apparently at baseline -Continue Cymbalta 30 mg PO qd SLE--noted DVT prophylaxis -Heparin 5000 units SC q12h Dispo -PT/OT ok to return to home w/home health services Total Time Spent: Greater than 30 minutes This includes examination of the patient, discharge planning, medication reconciliation, and communication with other providers. Discharge Instructions Please refer to the electronic Patient Visit Report (Discharge Instructions) for additional information. Additional Copies To Mikala Vásquez.
[2017-06-24] MEDS ORDERED: NURSING VERBAL MED ORDER ONE (18:45)
[2017-06-24] MEDS ORDERED: TRAMADOL HCL 50 MG TAB PO PRN (19:00)
[2017-06-24] MEDS: TEMAZEPAM 15 MG CAP PO SCH (19:12)
[2017-06-25 07:00] VITALS: BP 158/88; PULSE 67; TEMP 37; O2SAT 98
[2017-06-25] MEDS: INSULIN ASPART 100 UNITS/ML 3 ML PEN SC SCH ×2 (08:51→11:42)
[2017-06-25] MEDS: COLESTIPOL HCL 1 GM TAB PO SCH (08:53)
[2017-06-25] MEDS: MYCOPHENOLATE MOFETIL 250 MG CAP (CELLCEPT) PO SCH (08:53)
[2017-06-25] MEDS: CARVEDILOL 12.5 MG TAB PO SCH (08:54)
[2017-06-25] MEDS: ROSUVASTATIN CALCIUM 5 MG TAB PO SCH (08:54)
[2017-06-25] MEDS: DULOXETINE (CYMBALTA) 30 MG CAP PO SCH (08:55)
[2017-06-25] MEDS: ASPIRIN 81 MG ECTAB PO SCH (08:56)
[2017-06-25] MEDS: ISOSORBIDE MONONITRATE 30 MG TABCR PO SCH (08:57)
[2017-06-25] MEDS: BACLOFEN 10 MG TAB PO SCH (08:58)
[2017-06-25] MEDS: CEROVITE ADV FORMULA TAB PO SCH (08:58)
[2017-06-25] MEDS: CycloSPORINE (NEORAL) 25 MG CAP PO SCH (08:59)
[2017-06-25] MEDS: GABAPENTIN 400 MG CAP PO SCH (09:00)
[2017-06-25] MEDS: FAMOTIDINE 20 MG TAB PO SCH (09:00)
[2017-06-25] MEDS: PANTOprazole SOD 40 MG TAB PO SCH (09:01)
[2017-06-25] MEDS: LISINOPRIL 5 MG TAB PO SCH (09:01)
[2017-06-25] MEDS: MAGNESIUM OXIDE 400 MG TAB PO SCH (09:02)
[2017-06-25] MEDS: HEPARIN SOD 5000 UNIT/0.5 ML CARP SQ SCH (09:06)
[2017-06-25] MEDS: INSULIN GLARGINE SOLOSTAR 100 UNITS/ML 3 ML PEN SC SCH (09:06)
--- NOTE | 2017-06-25 12:04 | Nephrology Progress Note ---
Nephrology Progress Note Date of Service Jun 25, 2017. Chief Complaint Kidney transplant, IRIS Subjective Kecia was sleeping when I entered her room this morning. She did not open her eyes but asked to be left alone. She noted that she felt fine and did not have any questions or concerns. Diarrhea has resolved. Patient is eating well. Review of Systems A complete review of systems was performed. Pertinent positives are noted above. All other systems are negative. Vital Signs Last 8 Hrs Date Time Temp Pulse Resp B/P (MAP) Pulse Ox O2 Delivery O2 Flow Rate FiO2 06/25/17 10:35 Room Air 06/25/17 07:00 37.0 67 18 158/88 (111) 98 Room Air Last Recorded Weight Weight (Kilograms): 75.000 Physical Exam General Appearance: WD/WN, no apparent distress Head: normocephalic, atraumatic Deferred at patient request Family History FH: dementia MOTHER FH: diabetes mellitus SISTER GRANDMOTHER FH: heart disease FATHER MOTHER FH: lung cancer FATHER FH: rheumatoid arthritis SISTER FHx: heart disease Social History Smoking Status: Never smoker Drug Use: none Marital Status: single Housing Status: lives alone Occupation: disabled Laboratory Results Past 24 Hours Test 06/25/17 07:16 06/25/17 11:18 Bedside Glucose 159 mg/dl (70-90) 136 mg/dl (70-90) Allergies Coded Allergies: Penicillins (Verified Allergy, Mild, ITCHY, ANXIETY, 06/20/17) Loperamide (Verified Allergy, Unknown, 06/20/17) Vancomycin (Verified Allergy, Unknown, 06/20/17) Ziprasidone (Verified Allergy, Unknown, itching, 06/20/17) Medications Current Inpatient Medications Medications (Trade) Dose Ordered Sig/Suyapa Route Start Time Stop Time Status Last Admin Dose Admin Acetaminophen (Tylenol Tab) 650 mg Q4H PRN PO 06/20/17 04:30 07/20/17 04:29 06/21/17 00:43 650 MG Al Hydrox/Mg Hydrox/Simethicone (Maalox Max Susp) 15 ml Q4H PRN PO 06/20/17 04:30 07/20/17 04:29 Magnesium Hydroxide (Milk Of Magnesia Susp) 30 ml Q6H PRN PO 06/20/17 04:30 07/20/17 04:29 Polyethylene (Miralax Powder Packet) 17 gm DAILY PRN PO 06/20/17 04:30 07/20/17 04:29 Ondansetron HCl (Zofran Inj) 4 mg Q6H PRN IV 06/20/17 04:30 07/20/17 04:29 Heparin Sodium (Porcine) (Heparin Sq 5000 Unit/0.5ml) 5,000 unit Q12H SQ 06/20/17 08:00 07/20/17 07:59 Aspirin (Ecotrin Tab) 81 mg DAILY PO 06/20/17 08:00 07/20/17 08:59 06/25/17 08:56 81 MG Baclofen (Lioresal Tab) 10 mg TID PO 06/20/17 08:00 07/20/17 08:59 06/25/17 08:58 10 MG Cyclosporine (Neoral Cap) 50 mg BID PO 06/20/17 08:00 07/20/17 08:59 06/25/17 08:59 50 MG Duloxetine HCl (Cymbalta Cap) 30 mg DAILY PO 06/20/17 08:00 07/20/17 08:59 06/25/17 08:55 30 MG Famotidine (Pepcid Tab) 20 mg TID PO 06/20/17 08:00 07/20/17 08:59 06/25/17 09:00 20 MG Isosorbide Mononitrate (Imdur Ext Rel Tab) 60 mg QAM PO 06/20/17 08:00 07/20/17 08:59 06/25/17 08:57 60 MG Mycophenolate Mofetil (Cellcept Cap) 250 mg BID PO 06/20/17 08:00 07/20/17 08:59 06/25/17 08:53 250 MG Nitroglycerin (Nitrostat Tab) 0.4 mg UD PRN SL 06/20/17 04:30 07/20/17 04:29 Multivitamins/ Minerals (Multivitamin W/ Minerals Tab) 1 tab DAILY PO 06/20/17 08:00 07/20/17 08:59 06/25/17 08:58 1 TAB Ondansetron HCl (Zofran Odt) 4 mg Q6H PRN SL 06/20/17 04:30 07/20/17 04:29 Rosuvastatin Calcium (Crestor Tab) 5 mg DAILY PO 06/20/17 08:00 07/20/17 08:59 06/25/17 08:54 5 MG Temazepam (Restoril Cap) 15 mg HS PO 06/20/17 21:00 07/20/17 20:59 06/24/17 19:12 15 MG Pantoprazole Sodium (Protonix Tab) 40 mg DAILY PO 06/20/17 08:00 07/20/17 08:59 06/25/17 09:01 40 MG Magnesium Oxide (Mag-Ox Tab) 400 mg QAM PO 06/20/17 08:00 07/20/17 08:59 06/25/17 09:02 400 MG Miscellaneous (Iv Fluids Completed) 1 ea PRN PRN N/A 06/20/17 05:45 06/20/18 05:44 06/21/17 07:19 1 EA Gabapentin (Neurontin Cap) 400 mg DAILY PO 06/20/17 08:00 07/20/17 08:59 06/25/17 09:00 400 MG Glucose (Glucose 40% Gel) 15-30 GRAMS 15 GRAMS... UD PRN PO 06/20/17 07:00 07/20/17 06:59 Glucose (Glucose Chew Tab) 4-8 Tablets 4 Tabl... UD PRN PO 06/20/17 07:00 07/20/17 06:59 Dextrose (Dextrose 50% 50ML Syringe) 25-50ML OF 50% DW IV FOR... UD PRN IV 06/20/17 07:00 07/20/17 06:59 Glucagon (Glucagon Inj) 1 mg UD PRN SQ 06/20/17 07:00 07/20/17 06:59 Insulin Aspart (novoLOG ASPART) SLIDING SCALE If C... ACHS SC 06/20/17 16:30 07/20/17 16:29 06/23/17 21:35 2 UNITS Glucose (Glucose 40% Gel) 15-30 GRAMS 15 GRAMS... UD PRN PO 06/20/17 13:45 07/20/17 13:44 Glucose (Glucose Chew Tab) 4-8 Tablets 4 Tabl... UD PRN PO 06/20/17 13:45 07/20/17 13:44 Dextrose (Dextrose 50% 50ML Syringe) 25-50ML OF 50% DW IV FOR... UD PRN IV 06/20/17 13:45 07/20/17 13:44 Glucagon (Glucagon Inj) 1 mg UD PRN SQ 06/20/17 13:45 07/20/17 13:44 Carvedilol (Coreg Tab) 12.5 mg BID PO 06/21/17 20:00 07/20/17 08:59 06/25/17 08:54 12.5 MG Lisinopril (Zestril Tab) 5 mg QAM PO 06/23/17 08:00 07/23/17 07:59 06/25/17 09:01 5 MG Colestipol HCl (Colestid Tab) 1 gm BID PO 06/23/17 20:00 07/23/17 19:59 06/25/17 08:53 1 GM Insulin Glargine (Lantus Solostar Pen) 12 units QAM SC 06/24/17 08:00 07/20/17 08:59 06/25/17 09:06 12 UNITS Tramadol HCl (Ultram Tab) 50 mg Q4H PRN PO 06/24/17 19:00 07/24/17 18:59 06/24/17 19:12 50 MG Impression (1) Acute kidney injury (2) Benign hypertension (3) Kidney transplant status, cadaveric Kecia is a 57-year-old female with 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 She has a functional donor kidney transplant. Baseline creatinine has been approximately 1.2 mg/dL. Kecia presented with IRIS consistent with ATN and prerenal azotemia in the setting of diarhea. Creatinine improved with IVF. Volume status currently appears appropriate. She has a history of recurrent episodes of IRIS. Recommendations -- Continue on cyclosporine and Cellcept at current dose -- Follow up with Dr. [place] post discharge (suggest 1-2 week follow up) regarding IRIS/transplant -- Continue lisinopril 5 mg daily, carvedilol 12.5 mg BID, Imdur 60 mg QAM -- Document I/O's -- Medications are appropriate for kidney function -- Check metabolic profile within 1 week of hospital discharge -- Patient does not have any questions or concerns. IRIS is resolving. Nephrology has nothing more to add at this time. I will sign-ff. Please call with any additional questions or concerns.
--- NOTE | 2017-06-25 13:36 | Psychiatric Consultation ---
Consultation Date of Consultation Jun 25, 2017. Identifying Data 57-year-old single female who lives alone in [place], has a history of borderline personality disorder, and is admitted to the hospitalist service with sepsis. Psychiatry was consulted for depression. Chief Complaint "No, I do not want to talk, I do not talk to shrinks". History of Present Illness Patient is known to me from past consultations and hospitalization on the behavioral health unit in 2016. She is diagnosed with borderline personality disorder, and is chronically resistant to treatment recommendations. She was just seen by my colleague, Dr. Guillen, on 05/24/2017 for verbal aggression and care refusal while admitted to the hospitalist service. She refused psychiatric intervention, medications, and outpatient mental health treatment at that time. She was discharged 05/27/2017, and read presented to the emergency room 06/20/2017. Since admission, she has refused to eat at times, will not get out of bed to void, refuses to answer questions or talk to hospital staff at times, has been verbally aggressive and hostile to staff and refused care. Per nursing notes, she has made provocative statements, that nobody cares about her , staff do not really care and enjoy hurting her when they check her blood sugar , and calling staff "David De La Cruz retards." Psychiatric consult was placed yesterday, but the patient was refusing care and requesting to be discharged, discharge orders were placed, and she then refused to leave. I attempted to assess her today, but she refused to roll over, make eye contact, or respond to questions, other than to state "I don't talk to shrinks." She was advised that , as discussed on her last hospitalization, she has a hospital wide behavioral plan in place, and is expected to follow it and allow the necessary medical treatment, or be discharged. Advised her that this includes treating staff with respect, not being threatening or aggressive, and cooperating with care. Reminded her that she expects to be treated respectfully by staff, and they expect the same from her. She responded by stating "get me my clothes," and refused to answer further questions. Past Psychiatric History Current OP Treatment: no current treatment Prior OP Treatment: psychiatrist, therapist, insurance case manager Prior Psych Hospitalizations: [facility] (Most recently in December 2015, also June 2011), other ([place] 2010) Suicide Attempts: Yes (Remote history) Past Medication Trials Previous trials include but not limited to; Wellbutrin, Trileptal, Klonopin, Paxil, Haldol, Saphris, Cogentin Additional Notes Current diagnosis is borderline personality disorder; past diagnoses include personality disorder, depression, PTSD, rule out schizoaffective disorder. Past Medical/Surgical History (1) Hyperparathyroidism (2) Diabetes mellitus type 2 (3) Benign hypertension (4) Cerebrovascular disease (5) Acute kidney injury (6) Gastroesophageal reflux disease (7) Coronary artery disease (8) Kidney transplant status, cadaveric (9) Systemic lupus erythematosus Allergies Allergies: Coded Allergies: Penicillins (Verified Allergy, Mild, ITCHY, ANXIETY, 06/20/17) Loperamide (Verified Allergy, Unknown, 06/20/17) Vancomycin (Verified Allergy, Unknown, 06/20/17) Ziprasidone (Verified Allergy, Unknown, itching, 06/20/17) Home Medications Scheduled Aspirin (Aspirin), 1 TAB PO DAILY Baclofen (Lioresal), 10 MG PO TID Carvedilol (Carvedilol), 12.5 MG PO BID Cyclosporine (Neoral), 50 MG PO BID Dexlansoprazole (Dexilant), 30 MG PO DAILY Diclofenac Sodium (Topical) (Voltaren 1% Top Gel), 2-4 GM TD QID Duloxetine HCl (Cymbalta), 1 CAP PO DAILY Ergocalciferol (Vitamin D 18315 Unit), 1 CAP PO WK Famotidine (Pepcid), 20 MG PO TID Gabapentin (Neurontin), 1 CAP PO TID Insulin Glargine (Lantus Solostar), 20 UNITS SC QAM Isosorbide Mononitrate Ext Rel (Imdur Ext Rel), 60 MG PO QAM Liraglutide (Victoza), 1.8 MG SQ DAILY Lisinopril (Zestril), 5 MG PO DAILY Multivitamin (Multivitamin), 1 TAB PO DAILY Mycophenolate Mofetil (Cellcept), 1 CAP PO BID Ocuvite Preservision (Ocuvite Preservision), 1 TAB PO DAILY Rosuvastatin Calcium (Crestor), 1 TAB PO DAILY Temazepam (Restoril), 15 MG PO HS Scheduled PRN Nitroglycerin (Nitrostat), 1 TAB SL UD PRN for Chest Pain Ondasetron Odt (Zofran Odt), 4 MG SL Q6H PRN for Nausea Family History FH: dementia MOTHER FH: diabetes mellitus SISTER GRANDMOTHER FH: heart disease FATHER MOTHER FH: lung cancer FATHER FH: rheumatoid arthritis SISTER FHx: heart disease History of Suicide: No History of Substance Abuse: No Psychiatric History: Yes (Details unknown) Smoking Use Smoking Status: Never Smoker Personal History Lives in: [place] alone Childhood: Born in [place] Education: started college Relationship History: never Children: none Psychological Trauma History: Other (On past exams, has stated that she refuses to discuss past abuse) Review of Systems Patient refused to participate in review of systems Examination Vital Signs Vital Signs Past 12 Hours Date Time Temp Pulse Resp B/P (MAP) Pulse Ox O2 Delivery O2 Flow Rate FiO2 06/25/17 10:35 Room Air 06/25/17 07:00 37.0 67 18 158/88 (111) 98 Room Air Laboratory Results Last 24 Hours Test 06/25/17 07:16 06/25/17 11:18 Bedside Glucose 159 mg/dl 136 mg/dl Mental Examination During interview pt is: uncooperative Appearance: other (Lying in bed with her head hidden in the covers, refusing to reveal her face, or answer questions.) Eye contact is: other (No eye contact, refuses to uncover her face.) Speech: other (Minimal, angry speech.) Affect: angry Impression / Recommendations Impression 57-year-old single female with a history of borderline personality disorder who has numerous severe medical problems and 3 medical hospitalizations so far this year. She is typically angry and uncooperative with care, demanding and then refusing the care offered. Agree with Dr. Guillen's assessment from last month that this behavior may be related to long-standing and severe personality disorder and is unlikely to respond to pharmacotherapy. She has not been endorsing active suicidal or homicidal thoughts, active psychotic symptoms, there is no indication for psychiatric hospitalization. She is unwilling to engage in any sort of discussion about her emotions and behavior, and unwilling to consider use of medications or therapy to address mood and anger. She does have a behavioral plan which was updated during her hospitalization 1 month ago , and suggest that it be reviewed with her on a regular basis, and that she be held accountable for her behavior with expectations that she treat staff respectfully and allow necessary medical care, or return home for outpatient treatment. Agree with Dr. Guillen's recommendations that legal consequences be enforced for verbal threats or physical assaults against staff. I have asked the liaison nurse to return with the behavioral plan and reviewed along with the patient and her nurse, and if she is not willing to follow it, consider involving hospital administration. Also discussed recommendations with her current nurse and the primary attending, Dr. Feliz.
--- NOTE | 2017-06-25 14:49 | Hospitalist Progress Note ---
Hospitalist Progress Note Date of Service Jun 25, 2017. Subjective Patient uncooperative, unwilling to provide any ROS, answering all questions with "like you care." Patient was to be discharged 06/24 as she was medically stable and voiced wanting to go home. At time of discharge, she started crying and became angry at staff , stating that no was listening to her or cared about her and that she wasn't ready to go home. Discharge canceled at that time. Psych was consulted. When Dr. Herndon came to see the patient today, she refused to participate and asked for her clothes to leave. Pt escorted to her car by nursing staff. She refused to sign discharge instructions. Additional Comments: Unable to obtain ROS Objective Vital Signs Date Time Temp Pulse Resp B/P (MAP) Pulse Ox O2 Delivery O2 Flow Rate FiO2 06/25/17 10:35 Room Air 06/25/17 07:00 37.0 67 18 158/88 (111) 98 Room Air 06/24/17 23:59 94 Room Air 06/24/17 23:55 36.8 59 18 150/88 (108) 94 Room Air 06/24/17 16:30 94 Room Air 06/24/17 15:23 36.9 68 18 94 Room Air 06/24/17 14:49 36.9 68 18 99/63 (75) 94 Room Air Physical Exam Notes: General appearance: Well-developed, well-nourished, no apparent distress Head: Normocephalic, atraumatic Eyes: Normal inspection, PERRL, EOMI ENT: Normal ENT inspection, hearing grossly normal, pharynx normal Neck: Supple, no JVD, trachea midline Respiratory/Chest: Lungs clear to auscultation, normal breath sounds, no respiratory distress Cardiovascular: Regular rate & rhythm, no gallop, no murmur Abdomen/GI: Normal bowel sounds, non-tender, soft Extremities/Musculoskeletal: Normal inspection, no calf tenderness, no pedal edema Neurological/Psych: +Flat affect, not willing to participate. Alert, oriented x 3 Skin: Normal color, warm/dry, no rash Laboratory Results Last 24 Hours Test 06/25/17 07:16 06/25/17 11:18 Bedside Glucose 159 mg/dl 136 mg/dl Assessment and Plan 57 y/o female with a history of chronic systolic CHF, CAD with h/o RI, renal transplant, CKD stage III, recent UTI/bacteremia, TAMARA, SLE, and schizoaffective disorder who presents with sepsis and diarrhea. Possible sepsis/febrile illness w/leukocytosis, diarrhea--resolved -Recent ESBL E. coli bacteremia/UTI treated w/Invanz -UA abnormal but urine culture with 3 types of organisms -C. diff negative -Yeast not chadd albicans in stool, cultures otherwise negative -Leukocytosis resolved. Diarrhea resolving, may have caused febrile illness. No other definite source identified -Afebrile since 06/21 -Blood cultures NGTD -Infectious disease consulted, appreciate recs: C. diff negative, stool studies negative, urine culture with multiple organisms, clinically improved. Follow off of abx -Ertapenem d/c'd per ID recs, no further s/s infection -Flu PCR negative IRIS on CKD stage III, h/o renal transplant on chronic immunosuppression-- resolved -Creatinine remains stable at 1.08 -Nephrology consulted, appreciate recs: Continue cyclosporine and Cellcept. Continue lisinopril, Coreg, Imdur. Document I/O's. Check metabolic profile w/ in 1 week discharge Anemia of chronic disease--stable -Hgb stable at 9.7, continue to monitor CAD with history of cath/stent placement, HTN, HLD, chronic systolic CHF--stable - Continue ASA, Imdur 60 mg PO qd, Crestor 5 mg PO qd, Coreg decreased to 12.5 mg PO BID DM II--last HgbA1c 7.9 on 3.5 -Hold Victoza -Lantus 12 units SC qam -Insulin sliding scale -Check BSGs q ac and qhs GERD-stable - Continue famotidine and ppi Neuropathic pain -Continue Gabapentin 400 mg PO TID -Continue baclofen for face spasms Insomnia - continue Restoril 15 mg PO hs Borderline personality disorder, depression, possible schizoaffective disorder-- uncooperative, not participating -Continue Cymbalta 30 mg PO qd -Behavioral plan established last visit with Dr. Guillen reviewed with pt again SLE--noted DVT prophylaxis -Heparin 5000 units SC q12h Dispo -PT/OT ok to return to home w/home health services Discharged 06/25/17 after psychiatry reviewed previous behavioral plan with pt. Please see discharge summary
== END 2017-06-25 13:45 | disposition home health service (06) | DRG 683 ==
LOC: C.EDB 00:44 → C.MS4W 04:35 → UNDOADMOB 04:35 → ENRESERV 04:58 → OBSVTOIN 06-21 09:17
PROVIDERS: ADMIT Family Medicine; ATTEND Internal Medicine
DX: N17.9 Acute kidney failure, unspecified (principal); Z94.0 Kidney transplant status; I13.0 Hypertensive heart and chronic kidney disease with heart failure and stage 1 through stage 4 chronic kidney disease, or unspecified chronic kidney disease; I50.22 Chronic systolic (congestive) heart failure; R19.7 Diarrhea, unspecified; R82.90 Unspecified abnormal findings in urine; D72.829 Elevated white blood cell count, unspecified; R50.9 Fever, unspecified; E11.22 Type 2 diabetes mellitus with diabetic chronic kidney disease; N18.3 Chronic kidney disease, stage 3 (moderate); D63.1 Anemia in chronic kidney disease; I25.10 Atherosclerotic heart disease of native coronary artery without angina pectoris; I25.5 Ischemic cardiomyopathy; I08.0 Rheumatic disorders of both mitral and aortic valves; K21.9 Gastro-esophageal reflux disease without esophagitis; M79.2 Neuralgia and neuritis, unspecified; G47.33 Obstructive sleep apnea (adult) (pediatric); G47.00 Insomnia, unspecified; F25.9 Schizoaffective disorder, unspecified; F60.3 Borderline personality disorder; F32.9 Major depressive disorder, single episode, unspecified; M32.9 Systemic lupus erythematosus, unspecified; E89.2 Postprocedural hypoparathyroidism; M81.0 Age-related osteoporosis without current pathological fracture; Z87.440 Personal history of urinary (tract) infections; Z86.19 Personal history of other infectious and parasitic diseases; Z86.73 Personal history of transient ischemic attack (TIA), and cerebral infarction without residual deficits; I25.2 Old myocardial infarction; Z95.5 Presence of coronary angioplasty implant and graft; Z91.5 Personal history of self-harm; Z79.4 Long term (current) use of insulin; Z79.82 Long term (current) use of aspirin; Z79.899 Other long term (current) drug therapy; Z88.0 Allergy status to penicillin; Z88.1 Allergy status to other antibiotic agents; Z88.8 Allergy status to other drugs, medicaments and biological substances; Z80.1 Family history of malignant neoplasm of trachea, bronchus and lung; Z82.49 Family history of ischemic heart disease and other diseases of the circulatory system; Z83.3 Family history of diabetes mellitus; Z81.8 Family history of other mental and behavioral disorders; Z82.61 Family history of arthritis

== ENCOUNTER 2017-07-05 21:29 | Emergency (ER) | payer OTHER ==
[~2017-07-05 21:29] MED LIST changes: -CARV25TA2 PO; +CRG125 PO; +DICL1GEL12 TD
[2017-07-05 21:33] VITALS: BP 192/107; PULSE 95; TEMP 37.3; O2SAT 99
--- NOTE | 2017-07-05 22:35 | EMERGENCY ROOM VISIT NOTE ---
ED Visit Note First contact with patient: 21:48 CHIEF COMPLAINT: Shoulder, low back, and hip pain HISTORY OF PRESENT ILLNESS: This 57-year-old female patient presents to the emergency department, ambulatory, complaining of chronic pain in her bilateral shoulders, bilateral hips, and low back. The patient reports a history of spinal stenosis, degenerative arthritis in her shoulders, and "too bad" in regards to her hips. The patient states she was told that she can take Tylenol every 12 hours for pain, but states "I might as will be taking a sugar pill". She states she contacted [facility] times today, and was told that they will not answer her questions, and she must go to the emergency department. The patient states she has been trying to contact her PCP for 2 weeks, and states they refused to return her calls. Later in the conversation, the patient states she does have an appointment on July 15 with her PCP to discuss her complaints. The patient states that at one point that she wants to go to [place], as she feels going out of the area may help her get answers she would like. When asked about her medication list and the pain medication she is prescribed, the patient states she is not sure exactly what she takes, but states she throws up her pills when she takes them on an empty stomach, but is unable to eat due to the pain. The patient called [facility] and was told that they do not deal with medical concerns, and that she would have to come to the Emergency Department to be evaluated. She denies any recent injury, and states "the pain gets worse every day." She states ice (cold) does make it worse, and nothing makes it better. She states she threw away her Voltaren Gel, as she attempted to use it on her jaw for dental pain and it did not help. When asked what the patient expects to get out of the visit to the ED today, she states "I don't want to live in pain, but you can't help me anyway." REVIEW OF SYSTEMS: A 6 review of systems was performed with positives and pertinent negatives listed in the history of present illness. All other systems were reviewed and are negative. ALLERGIES: Loperamide, vancomycin, ziprasidone, penicillin MEDICATIONS: "I take what is on the counter" PMH: Bipolar disorder, chronic pain, degenerative arthritis, spinal stenosis SOCIAL HISTORY: The patient lives locally alone. She denies drug, alcohol, tobacco use. PHYSICAL EXAM: VITALS: Vitals are noted on the nurse's note and reviewed by myself. Elevated BP noted. GENERAL: This is a 57 year old female, in no acute distress, nondiaphoretic, well-developed well-nourished. HEART: RRR, no murmurs, gallops, or rubs. LUNGS: CTA bilaterally. No wheezes, rhonchi, or rales. MUSCULOSKELETAL: The patient refuses any musculoskeletal examination. She states "I don't allow people to hurt me." EMERGENCY DEPARTMENT COURSE: The patient was seen and evaluated as above. I had a very long discussion with her at bedside regarding her desires out of the visit. The patient is here presenting with complaints of chronic pain, but refuses most of an evaluation. When asked what the patient hopes to gain by this emergency department visit, she states "I do not want to live in pain". I asked the patient when her most recent imaging studies were of her painful areas , and she states "they were a while ago". I asked if she would like updated studies, and she declines and states "I know you all do chest x-rays on every patient who walks through the door so you can charge them more". I advised her that I have no intentions of performing a chest x-ray on her, as her complaints do not involve her chest or lungs. I did offer to perform imaging of her spine , hips, and shoulders, but she again declines. I went through the patient's medication list, and asked her about the multiple pain medications which are listed. She states any time she takes any pills, she vomits, as taking them on an empty stomach makes her sick. When asked if the patient has tried eating or taking pills after meals, she states "I do not want breakfast, and I cannot eat because of the pain". I asked about the Voltaren gel which is listed on the patient's medications, and she states she threw it away, as she attempted to use it on her jaw for tooth pain, and it did not help. I asked the patient about physical therapy, and she states she went 1 year ago, and was having difficulty performing some of the exercises due to pain, then was told to sit in her seat, wait for her ride, and not to come back. The patient states she has never gone back. I discussed different options for pain management, and advised her of oral medications, topical medications, lifestyle modifications or physical changes, as well as pain management and consideration for injections. The patient states she cannot tolerate her oral medications due to vomiting, she cannot use topical medications, as she is unable to reach her shoulders or her back, she does not want any topical medicine to only treat her hip, as her shoulders and back will continue to hurt, and she is unable to go through any other physical therapy, massage, or healthcare liaison. She states she cannot just contact pain management to schedule an appointment, as they do not answer her phone. She states her PCP has been unwilling to help her establish an appointment with pain management. She also refuses any injections, as "I do not believe in causing pain to treat pain". I advised the patient that with her chronic diagnoses that her pain will likely never completely subside, however she is refusing all potential treatment options we have. She states "you might as well just hit me over the head with a bat". She states she does not understand why physicians would make a diagnosis when they are unable to treat it. I advised the patient that if she had any other suggestions or thoughts on what we could do to help her here, that I am willing to discuss this with her. She began crying, and complaining of the severe pain which nobody will help. Again , I offered the patient medication to help with nausea so she can tolerate her pills or topical medications. She started crying again. I offered to have the pillowcase turner try to help her establish an appointment somewhere locally with either a new PCP, her own PCP, or custom motorcycle painter, and she states "I do not want any [facility] barr in here talking to me". I advised her that it would be only the regular pillowcase turner who will help with coordination of care. The patient declines. I again asked the patient if there was something I could do to help her. She stood up and states "I will just come back for a second opinion later". She began walking out of the room. I offered to speak with another provider to come in and talk with her now, and she continued to walk out of the emergency department. Blood Pressure Screening: Patient was found to have a slightly elevated blood pressure due to circumstances. I do not believe that the patient requires hypertension monitoring. The patient declined to go through medication list. DIFFERENTIAL DIAGNOSIS: Chronic pain, shoulder pain, back pain, spinal stenosis , fracture, sprain, strain, contusion, psychiatric problem, and others DIAGNOSIS: Chronic pain, psychiatric problem. The chart was completed utilizing [employer] Speech voice recognition software. Grammatical errors, random word insertions, pronoun errors, and incomplete sentences are an occasional consequence of this system due to software limitations, ambient noise, and hardware issues. Any formal questions or concerns about the content, text, or information contained within the body of this dictation should be directly addressed to the provider for clarification. Problem List Medical Problems: (1) Anxiety Status: Chronic (2) Attention deficit hyperactivity disorder Status: Chronic (3) Benign hypertension Status: Chronic (4) Borderline personality disorder Status: Chronic (5) Cerebrovascular disease Permanent Comment: s/p stroke Status: Chronic (6) Coronary artery disease Status: Chronic (7) Diabetes mellitus type 2 Status: Chronic (8) Gastroesophageal reflux disease Status: Chronic (9) Hyperparathyroidism Status: Chronic (10) Kidney transplant status, cadaveric Status: Chronic (11) Osteoporosis Status: Chronic (12) Sleep apnea Status: Chronic (13) Systemic lupus erythematosus Status: Chronic Surgical Problems: (1) Status post coronary artery stent placement Permanent Comment: RCA 2005 Status: Chronic (2) Status post kidney transplant Permanent Comment: cadaveric transplant, 1998 Status: Chronic (3) Status post parathyroidectomy Status: Chronic Current/Historical Medications Scheduled Aspirin (Aspirin), 1 TAB PO DAILY Baclofen (Lioresal), 10 MG PO TID Carvedilol (Carvedilol), 12.5 MG PO BID Cyclosporine (Neoral), 50 MG PO BID Dexlansoprazole (Dexilant), 30 MG PO DAILY Diclofenac Sodium (Topical) (Voltaren 1% Top Gel), 2-4 GM TD QID Duloxetine HCl (Cymbalta), 1 CAP PO DAILY Ergocalciferol (Vitamin D 07807 Unit), 1 CAP PO WK Famotidine (Pepcid), 20 MG PO TID Gabapentin (Neurontin), 1 CAP PO TID Insulin Glargine (Lantus Solostar), 20 UNITS SC QAM Isosorbide Mononitrate Ext Rel (Imdur Ext Rel), 60 MG PO QAM Liraglutide (Victoza), 1.8 MG SQ DAILY Lisinopril (Zestril), 5 MG PO DAILY Multivitamin (Multivitamin), 1 TAB PO DAILY Mycophenolate Mofetil (Cellcept), 1 CAP PO BID Ocuvite Preservision (Ocuvite Preservision), 1 TAB PO DAILY Rosuvastatin Calcium (Crestor), 1 TAB PO DAILY Temazepam (Restoril), 15 MG PO HS Scheduled PRN Nitroglycerin (Nitrostat), 1 TAB SL UD PRN for Chest Pain Ondasetron Odt (Zofran Odt), 4 MG SL Q6H PRN for Nausea Allergies Coded Allergies: Penicillins (Verified Allergy, Mild, ITCHY, ANXIETY, 06/20/17) Loperamide (Verified Allergy, Unknown, 06/20/17) Vancomycin (Verified Allergy, Unknown, 06/20/17) Ziprasidone (Verified Allergy, Unknown, itching, 06/20/17) Vital Signs Date Time Temp Pulse Resp B/P (MAP) Pulse Ox O2 Delivery O2 Flow Rate FiO2 07/05/17 21:33 37.3 95 20 192/107 99 Room Air Departure Information Impression Primary Impression: Chronic pain Dispostion Other (Pt. eloped.) Condition FAIR Referrals No Doctor, Assigned (PCP) Patient Instructions [facility] Problem Qualifiers Primary Impression: Chronic pain Chronic pain type: other chronic pain Qualified Codes: G89.29 - Other chronic pain
== END 2017-07-05 22:15 | disposition left against medical advice (07) ==
LOC: C.EDB 21:32 → C.EDD 22:15
DX: G89.29 Other chronic pain (principal); Z88.8 Allergy status to other drugs, medicaments and biological substances; Z88.0 Allergy status to penicillin; F31.9 Bipolar disorder, unspecified; M19.90 Unspecified osteoarthritis, unspecified site; M48.00 Spinal stenosis, site unspecified; F41.9 Anxiety disorder, unspecified; F90.9 Attention-deficit hyperactivity disorder, unspecified type; I10 Essential (primary) hypertension; F60.9 Personality disorder, unspecified; I25.10 Atherosclerotic heart disease of native coronary artery without angina pectoris; E11.9 Type 2 diabetes mellitus without complications; E21.3 Hyperparathyroidism, unspecified; M85.80 Other specified disorders of bone density and structure, unspecified site; G47.30 Sleep apnea, unspecified; M32.9 Systemic lupus erythematosus, unspecified; Z79.82 Long term (current) use of aspirin; Z79.899 Other long term (current) drug therapy; Z88.5 Allergy status to narcotic agent

== ENCOUNTER 2017-07-05 22:49 | Emergency (ER) | payer OTHER ==
[~2017-07-05] VITALS: Ht 162.6 cm; Wt 80.0 kg
[2017-07-05 22:54] VITALS: BP 101/62; PULSE 65; TEMP 36.7; O2SAT 99; Ht 162.6 cm; Wt 80.0 kg
--- NOTE | 2017-07-05 23:20 | EMERGENCY ROOM VISIT NOTE ---
History Report prepared by Savi: Emy Cruz Under the Supervision of: Dr. Brandan Salas M.D. First contact with patient: 22:55 Chief Complaint: OTHER COMPLAINT Stated Complaint: PAIN THAT ER REFUSES TO HELP W/NOTHING CAN BE DONE History of Present Illness The patient is a 57 year old female who presents to the Emergency Room with complaints of worsening back pain for two days. She notes that she has a history of spinal stenosis. She notes that she has been having back pain for several years. She reports that she was seen in the ED today and was discharged five minutes ago. She states that she was initially told by [facility] to come to the ED for further evaluation. She states that she was told by a nurse here that the pain in her back was only going to get worse until she dies. She states that she came back, because she is not sure what to do with that kind of information. The patient seems upset. She states that her back, shoulders, and hips are in pain. She reports the pain is worse every day. The patient keeps repeating that "it's all my fault, it's all my fault, it's all my fault." She will not elaborate any further. She denies any thoughts of self-harm, thoughts of harm others, or any hallucinations. The patient states that her legs are too weak to walk. She notes the pain is relieved when lying flat. She notes that she rests for the majority of the day. She denies any history of anxiety medication use. She regularly takes pain medication, though she has been vomiting her medication back up for the last two days. She notes that she has not eaten much. She reports diarrhea. She notes that she is getting weaker. She denies any chest pain or shortness of breath. She notes that she has not been drinking well. She reports a history of kidney transplant. She denies any incontinence. She denies any rashes or neck pain. She reports a headache. She notes her tooth was recently extracted and she completed the medication treatment. The patient is visibly more upset. When discussing the potential treatment plan, the patient stated that she did not want to be in more pain by having labs performed. When discussing all options in which to help evaluate and treat her pain, the patient refused. She insisted on getting more medication than could be used for treatment and when she was told that would not be possible here in the ED, she became more upset and the patient stormed out of the ED on foot. Source of History: patient Onset: two days Position: back Timing: worsening Modifying Factors (Relieving): other (lying flat) Associated Symptoms: + headache, + vomiting, + weakness (leg ), No neck pain , No chest pain, No SOB, No rash Note: She denies any SI, HI, or hallucinations. She denies any incontinence. Review of Systems See HPI for pertinent positives & negatives. A total of 10 systems reviewed and were otherwise negative. Past Medical & Surgical Medical Problems: (1) Anxiety (2) Attention deficit hyperactivity disorder (3) Benign hypertension (4) Borderline personality disorder (5) Cerebrovascular disease (6) Coronary artery disease (7) Diabetes mellitus type 2 (8) Gastroesophageal reflux disease (9) Hyperparathyroidism (10) Kidney transplant status, cadaveric (11) Leukocytosis (12) Major depression, recurrent (13) MDRO (multiple drug resistant organisms) resistance (14) Osteoporosis (15) Sepsis (16) Sleep apnea (17) Systemic lupus erythematosus (18) Urinary tract infection due to extended-spectrum beta lactamase (ESBL) producing Escherichia coli Surgical Problems: (1) Status post coronary artery stent placement (2) Status post kidney transplant (3) Status post parathyroidectomy Family History FH: dementia MOTHER FH: diabetes mellitus SISTER GRANDMOTHER FH: heart disease FATHER MOTHER FH: lung cancer FATHER FH: rheumatoid arthritis SISTER FHx: heart disease Social History Smoking Status: Never Smoker Alcohol Use: none Drug Use: none Marital Status: single Housing Status: lives alone Occupation Status: disabled Current/Historical Medications Scheduled Aspirin (Aspirin), 1 TAB PO DAILY Baclofen (Lioresal), 10 MG PO TID Carvedilol (Carvedilol), 12.5 MG PO BID Cyclosporine (Neoral), 50 MG PO BID Dexlansoprazole (Dexilant), 30 MG PO DAILY Diclofenac Sodium (Topical) (Voltaren 1% Top Gel), 2-4 GM TD QID Duloxetine HCl (Cymbalta), 1 CAP PO DAILY Ergocalciferol (Vitamin D 94742 Unit), 1 CAP PO WK Famotidine (Pepcid), 20 MG PO TID Gabapentin (Neurontin), 1 CAP PO TID Insulin Glargine (Lantus Solostar), 20 UNITS SC QAM Isosorbide Mononitrate Ext Rel (Imdur Ext Rel), 60 MG PO QAM Liraglutide (Victoza), 1.8 MG SQ DAILY Lisinopril (Zestril), 5 MG PO DAILY Multivitamin (Multivitamin), 1 TAB PO DAILY Mycophenolate Mofetil (Cellcept), 1 CAP PO BID Ocuvite Preservision (Ocuvite Preservision), 1 TAB PO DAILY Rosuvastatin Calcium (Crestor), 1 TAB PO DAILY Temazepam (Restoril), 15 MG PO HS Scheduled PRN Nitroglycerin (Nitrostat), 1 TAB SL UD PRN for Chest Pain Ondasetron Odt (Zofran Odt), 4 MG SL Q6H PRN for Nausea Allergies Coded Allergies: Penicillins (Verified Allergy, Mild, ITCHY, ANXIETY, 06/20/17) Loperamide (Verified Allergy, Unknown, 06/20/17) Vancomycin (Verified Allergy, Unknown, 06/20/17) Ziprasidone (Verified Allergy, Unknown, itching, 06/20/17) Physical Exam Vital Signs Date Time Temp Pulse Resp B/P (MAP) Pulse Ox O2 Delivery O2 Flow Rate FiO2 07/05/17 22:54 36.7 65 20 101/62 99 Room Air Physical Exam GENERAL: Patient is well appearing and in no acute distress. Patient is mildly agitated, angry with me when walking in room, though calm after extensive discussions. EYES: No scleral icterus, unremarkable pupils. ENT: Mucous membranes moist, no nasal congestion. NECK: No masses appreciated, no meningismus, trachea is midline. RESPIRATORY: No dyspnea. Clear to auscultation and equal bilaterally. No wheeze , no rhonchi. CARDIOVASCULAR: Regular rate and rhythm. No murmurs, rubs, gallops appreciated. GASTROINTESTINAL: Patient refuses examination. BACK: Patient refuses examination EXTREMITIES: Patient refuses examination. NEUROLOGIC: Alert and oriented, no acute motor or sensory deficits, no focal weakness, cranial nerves grossly intact. SKIN: No rash, no jaundice, no diaphoresis. PSYCH: Patient mildly labile, though coherent. Adamantly denies SI and HI. Denies hallucinations. Medical Decision & Procedures ED Course 2300: The patient was evaluated in room A7. A complete history and physical exam was performed. Medical Decision 57 yr old female arrives complaining of low back pain and diffuse joint aches in setting of vomiting last few days. She is clearly upset though re- directable. She is adamantly not suicidal, homicidal nor is she willing to be evaluated by mental health. Suspect there is a bit of nicole going on along with hyperfocus on her body pains, however this is not in of itself a reason to 302 her. She states she wants her pain taken care of. It is unclear cause of her pains, though seems very consistent with chronic pain she has had for a very long time. Furthermore it appears she has had her Tramadol Rx stopped in last few months. She is not febrile nor septic appearing. She has no neuro deficits that I can appreciate nor that she complains of other than the chronic weakness/pain she has. She is completely unwilling to have any labs nor imaging done. I have discussed doing labs, giving her pain mediations, etc which she refuses all of this. I even offered controlled narcotic pain medication to get her through weekend which she refuses as she wants a long-term prescription which I made clear I am unable to provide her. I spent well over 20 minutes at patients bedside trying to come up with a plan to help evaluate her further and get her pain under control though in the end she walked out to room stating that I am threatening her and not willing to help her (which of course is the very opposite of the truth). She has made no act of furtherance of hurting self and I have no reason at this time that I can 302 her to further evaluate her medically and psychiatrically. As always I made it very clear to patient that if she feels something is worsening or she changes her mind on evaluation she may return at any time. Patient able to walk out of department on own. Medication Reconcilliation Current Medication List: was personally reviewed by me Blood Pressure Screening Patient's blood pressure: Normal blood pressure Impression Primary Impression: Back pain Additional Impressions: Joint pain Refusal of care by patient Patient refused evaluation Scribe Attestation The scribe's documentation has been prepared under my direction and personally reviewed by me in its entirety. I confirm that the note above accurately reflects all work, treatment, procedures, and medical decision making performed by me. Departure Information Dispostion Against Medical Advice Referrals No Doctor, Assigned (PCP) Patient Instructions [facility] Problem Qualifiers
== END 2017-07-05 23:15 | disposition left against medical advice (07) ==
LOC: C.EDB 22:51 → C.EDA 23:15
DX: M54.9 Dorsalgia, unspecified (principal); M25.50 Pain in unspecified joint; Z53.20 Procedure and treatment not carried out because of patient's decision for unspecified reasons; F90.9 Attention-deficit hyperactivity disorder, unspecified type; I10 Essential (primary) hypertension; F60.9 Personality disorder, unspecified; I25.10 Atherosclerotic heart disease of native coronary artery without angina pectoris; E11.9 Type 2 diabetes mellitus without complications; K21.9 Gastro-esophageal reflux disease without esophagitis; M85.80 Other specified disorders of bone density and structure, unspecified site; G47.30 Sleep apnea, unspecified; E21.3 Hyperparathyroidism, unspecified; Z79.82 Long term (current) use of aspirin; Z79.899 Other long term (current) drug therapy; Z88.0 Allergy status to penicillin; Z88.8 Allergy status to other drugs, medicaments and biological substances; Z88.5 Allergy status to narcotic agent

== ENCOUNTER 2017-07-06 01:47 | Emergency (ER) | payer OTHER ==
[~2017-07-06] VITALS: Ht 162.6 cm; Wt 82.0 kg
[2017-07-06 01:52] VITALS: TEMP 36.7; Ht 162.6 cm; Wt 82.0 kg
[2017-07-06] MEDS ORDERED: TRAMADOL HCL 50 MG TAB PO STA (02:38)
[2017-07-06] MEDS ORDERED: ONDANSETRON 4MG OD TAB PO ONE (02:45)
--- NOTE | 2017-07-06 02:54 | EMERGENCY ROOM VISIT NOTE ---
History Report prepared by Savi: Emy Cruz Under the Supervision of: Dr. Brandan Salas M.D. First contact with patient: 02:19 Chief Complaint: BACK PAIN Stated Complaint: BACK PAIN History of Present Illness The patient is a 57 year old female who presents to the Emergency Room with complaints of persistent back pain for two days. The patient was just seen in the ED at 2300 yesterday. She left AMA after she refused to be evaluated or treated. She refused a psychiatric evaluation at that time as well. The patient states that she does not speak to counselors. She current has abdominal pain and wants medication for the pain. She states that she has taken Zofran before. She is agreeable to have Tramadol for her back pain. She denies any rashes. She is agrees to have her labs checked. Please see previous chart; the patient reports continued back pain. She currently rates her pain a 10/10 in severity. She notes that she drove home and called 911, though she states that she is too weak to drive. She states the weakness is new. Source of History: patient Onset: two days Position: back Symptom Intensity: 10/10 Timing: other (persistent) Associated Symptoms: + weakness, No abdominal pain Review of Systems See HPI for pertinent positives & negatives. A total of 10 systems reviewed and were otherwise negative. Past Medical & Surgical Medical Problems: (1) Anxiety (2) Attention deficit hyperactivity disorder (3) Benign hypertension (4) Borderline personality disorder (5) Cerebrovascular disease (6) Coronary artery disease (7) Diabetes mellitus type 2 (8) Gastroesophageal reflux disease (9) Hyperparathyroidism (10) Kidney transplant status, cadaveric (11) Leukocytosis (12) Major depression, recurrent (13) MDRO (multiple drug resistant organisms) resistance (14) Osteoporosis (15) Sepsis (16) Sleep apnea (17) Systemic lupus erythematosus (18) Urinary tract infection due to extended-spectrum beta lactamase (ESBL) producing Escherichia coli Surgical Problems: (1) Status post coronary artery stent placement (2) Status post kidney transplant (3) Status post parathyroidectomy Family History FH: dementia MOTHER FH: diabetes mellitus SISTER GRANDMOTHER FH: heart disease FATHER MOTHER FH: lung cancer FATHER FH: rheumatoid arthritis SISTER FHx: heart disease Social History Smoking Status: Never Smoker Alcohol Use: none Drug Use: none Marital Status: single Housing Status: lives alone Occupation Status: disabled Current/Historical Medications Scheduled Aspirin (Aspirin), 81 MG PO DAILY Baclofen (Lioresal), 10 MG PO TID Cyclosporine (Neoral), 50 MG PO BID Dexlansoprazole (Dexilant), 30 MG PO DAILY Duloxetine HCl (Cymbalta), 30 MG PO DAILY Ergocalciferol (Vitamin D 11861 Unit), 1 CAP PO WK Famotidine (Pepcid), 20 MG PO TID Gabapentin (Neurontin), 400 MG PO TID Insulin Glargine (Lantus Solostar), 20 UNITS SC QAM Isosorbide Mononitrate Ext Rel (Imdur Ext Rel), 60 MG PO QAM Liraglutide (Victoza), 1.8 MG SQ DAILY Lisinopril (Zestril), 5 MG PO DAILY Multivitamin (Multivitamin), 1 TAB PO DAILY Mycophenolate Mofetil (Cellcept), 250 MG PO BID Ocuvite Preservision (Ocuvite Preservision), 1 TAB PO DAILY Rosuvastatin Calcium (Crestor), 1 TAB PO DAILY Temazepam (Restoril), 15 MG PO HS Scheduled PRN Nitroglycerin (Nitrostat), 1 TAB SL UD PRN for Chest Pain Allergies Coded Allergies: Penicillins (Verified Allergy, Mild, ITCHY, ANXIETY, 06/20/17) Loperamide (Verified Allergy, Unknown, 06/20/17) Vancomycin (Verified Allergy, Unknown, 06/20/17) Ziprasidone (Verified Allergy, Unknown, itching, 06/20/17) Physical Exam Vital Signs Date Time Temp Pulse Resp B/P (MAP) Pulse Ox O2 Delivery O2 Flow Rate FiO2 07/06/17 04:20 68 18 134/78 99 07/06/17 01:52 36.7 78 18 178/96 99 Room Air Physical Exam GENERAL: Patient is disheveled appearing with stains on jeans and in no acute distress. Patient is slightly more cooperative than earlier. EYES: No scleral icterus, unremarkable pupils. ENT: Mucous membranes moist, no nasal congestion. NECK: No masses appreciated, no meningismus, trachea is midline. RESPIRATORY: No dyspnea. Clear to auscultation and equal bilaterally. No wheeze , no rhonchi. CARDIOVASCULAR: Regular rate and rhythm. No murmurs, rubs, gallops appreciated. GASTROINTESTINAL: Does not allow abdominal examination. BACK: No midline tenderness, no CVA tenderness. Old scar of right posterior back. Unremarkable. EXTREMITIES: Normal motion all extremities, no cyanosis, no edema. NEUROLOGIC: Alert and oriented, no acute motor or sensory deficits, no focal weakness, cranial nerves grossly intact. SKIN: No rash, no jaundice, no diaphoresis. Medical Decision & Procedures Laboratory Results 07/06/17 02:54 Red Blood Count 4.34, Mean Corpuscular Volume 89.4, Mean Corpuscular Hemoglobin 30.9, Mean Corpuscular Hemoglobin Concent 34.5, Mean Platelet Volume 9.9, Neutrophils (%) (Auto) 63.3, Lymphocytes (%) (Auto) 22.5, Monocytes (%) (Auto) 13.1, Eosinophils (%) (Auto) 0.5, Basophils (%) (Auto) 0.5, Neutrophils # (Auto ) 5.26, Lymphocytes # (Auto) 1.87, Monocytes # (Auto) 1.09, Eosinophils # (Auto ) 0.04, Basophils # (Auto) 0.04 07/06/17 02:54 Test 07/06/17 02:54 White Blood Count 8.31 K/uL (4.8-10.8) Red Blood Count 4.34 M/uL (4.2-5.4) Hemoglobin 13.4 g/dL (12.0-16.0) Hematocrit 38.8 % (37-47) Mean Corpuscular Volume 89.4 fL (80-100) Mean Corpuscular Hemoglobin 30.9 pg (25-34) Mean Corpuscular Hemoglobin Concent 34.5 g/dl (32-36) Platelet Count 310 K/uL (130-400) Mean Platelet Volume 9.9 fL (7.4-10.4) Neutrophils (%) (Auto) 63.3 % Lymphocytes (%) (Auto) 22.5 % Monocytes (%) (Auto) 13.1 % Eosinophils (%) (Auto) 0.5 % Basophils (%) (Auto) 0.5 % Neutrophils # (Auto) 5.26 K/uL (1.4-6.5) Lymphocytes # (Auto) 1.87 K/uL (1.2-3.4) Monocytes # (Auto) 1.09 K/uL (0.11-0.59) Eosinophils # (Auto) 0.04 K/uL (0-0.5) Basophils # (Auto) 0.04 K/uL (0-0.2) RDW Standard Deviation 48.3 fL (36.4-46.3) RDW Coefficient of Variation 14.7 % (11.5-14.5) Immature Granulocyte % (Auto) 0.1 % Immature Granulocyte # (Auto) 0.01 K/uL (0.00-0.02) Anion Gap 6.0 mmol/L (3-11) Est Creatinine Clear Calc Drug Dose 38.3 ml/min Estimated GFR () 39.0 Estimated GFR (Non- 33.6 BUN/Creatinine Ratio 18.9 (10-20) Calcium Level 9.8 mg/dl (8.5-10.1) Total Bilirubin 0.6 mg/dl (0.2-1) Aspartate Amino Transf (AST/SGOT) 15 U/L (15-37) Alanine Aminotransferase (ALT/SGPT) 25 U/L (12-78) Alkaline Phosphatase 137 U/L (45-117) Total Protein 8.1 gm/dl (6.4-8.2) Albumin 3.6 gm/dl (3.4-5.0) Globulin 4.5 gm/dl (2.5-4.0) Albumin/Globulin Ratio 0.8 (0.9-2) Thyroid Stimulating Hormone (TSH) 0.918 uIu/ml (0.300-4.500) Salicylates Level < 1.7 mg/dl (2.8-20) Acetaminophen Level < 2 ug/ml (10-30) Ethyl Alcohol mg/dL < 3.0 mg/dl (0-3) Laboratory results as reviewed by me. Medications Administered Medications (Trade) Dose Ordered Sig/Suyapa Route Start Time Stop Time Status Last Admin Dose Admin Ondansetron HCl (Zofran Odt) 4 mg ONE ONCE PO 07/06/17 02:45 07/06/17 02:46 DC 07/06/17 02:49 4 MG Tramadol HCl (Ultram Tab) 50 mg NOW STAT PO 07/06/17 02:38 07/06/17 02:40 DC 07/06/17 02:57 50 MG Tramadol HCl (Ultram Home Pack) 1 homepack UD ONCE PO 07/06/17 04:15 4 04:16 DC 07/06/17 04:19 1 HOMEPACK Ondansetron HCl (ZOFRAN ODT 4MG Home Pack) 1 homepack UD ONCE PO 07/06/17 04:15 4 04:16 DC 07/06/17 04:20 1 HOMEPACK ED Course 0232: The patient was evaluated in room A7. A complete history and physical exam was performed. 0258: Per nursing staff, the patient was witnessed getting out of bed to machine pecan picker a remote and got back into bed. 0405: I reassessed the patient at this time. She drank an entire glass of water with no difficulties. She denies any HI or SI. I discussed the results and treatment plan with the patient. She is demanding to go home. She states that she will be back in the next 8-24 hours. When asked why, she states, "because no one will do anything for me." I asked her what I can do for her and she replied, "nothing." I asked her if she would like a prescription, she declined. I answered all pertaining questions that she had. She expressed understanding and verbalized agreement. The patient will be discharged home. Medical Decision Differential: Mood Disorder, Overdose, Infectious, Electrolyte Abnormality, Cardiac, Hepatic, Endocrine, Toxicologic, Neurologic, amongst other pathologies entertained. 57 yr old female arrives for evaluation of low back and joint pains for the 3rd time in last few hours, but this time by EMS. This time around willing to take Zofran and Tramadol which both she has tolerated previously, previous QTC normal , and she did well with them here. She allowed me to check some labs and let me do a little bit more of an exam. With labs returned only minor renal insufficiency compared to baseline and she is tolerating PO. She is demanding discharge though at same time stating we won't do anything for her. I made it very clear that I am completely willing to work with her and do further testing/ imaging/treatment but she is very focused on fact we are all liars and that we are threatening her (which once again is not that case). I have offered mental health services to her which she refuses. Once again I still do not feel that she is committable nor that I can forcibly keep her against her will. I have opted to give her a few tramadol and zofran to go home with as this should be enough for rest of weekend and she can talk to her primary provider on Friday. That said patient notes she will probably be back in near future. I asked why and she states it is because we won't do anything for her, which despite my refuting, clearly pointing out that she has been refusing things, she continues to believe. Regardless she is in process of leaving and in no way wishes to stay longer. Medication Reconcilliation Current Medication List: was personally reviewed by me Blood Pressure Screening Patient's blood pressure: Elevated blood pressure Blood pressure disposition: Referred to PCP Impression Primary Impression: Low back pain Additional Impressions: Joint pain Chronic pain Nausea Scribe Attestation The scribe's documentation has been prepared under my direction and personally reviewed by me in its entirety. I confirm that the note above accurately reflects all work, treatment, procedures, and medical decision making performed by me. Departure Information Dispostion Home / Self-Care Referrals No Doctor, Assigned (PCP) Forms HOME CARE DOCUMENTATION FORM, IMPORTANT VISIT INFORMATION Patient Instructions My [facility] Additional Instructions You have been examined and treated today on an emergency basis only. This is not a substitute for, or an effort to provide, complete comprehensive medical care. It is impossible to recognize and treat all injuries or illnesses in a single emergency department visit. It is therefore important that you follow up closely with your Primary Physician. Call as soon as possible for an appointment so you can review all labs, imaging and other testing that you had. Return to Emergency Department, call 911 or seek immediate medical attention if you feel your symptoms are worsening. If you feel you are at risk of harming yourself or others call 911. Problem Qualifiers
[2017-07-06 03:20] LABS: BASO % 0.5 %; BASO ABS # 0.04 K/uL (0-0.2); EOS % 0.5 %; EOS ABS # 0.04 K/uL (0-0.5); HEMATOCRIT 38.8 % (37-47); HEMOGLOBIN 13.4 g/dL (12.0-16.0); IG# 0.01 K/uL (0.00-0.02); LYMPH % 22.5 %; LYMPH ABS # 1.87 K/uL (1.2-3.4); MEAN CELL VOLUME 89.4 fL (80-100); MEAN CORPUSCULAR HEMOGLOBIN 30.9 pg (25-34); MEAN CORPUSCULAR HGB CONC 34.5 g/dl (32-36); MEAN PLATELET VOLUME 9.9 fL (7.4-10.4); MONO % 13.1 %; MONO ABS # 1.09 K/uL (0.11-0.59); NEUT % 63.3 %; NEUT ABS # 5.26 K/uL (1.4-6.5); PLATELET COUNT 310 K/uL (130-400); RED CELL DISTRIBUTION WIDTH CV 14.7 % (11.5-14.5); RED CELL DISTRIBUTION WIDTH SD 48.3 fL (36.4-46.3); WHITE BLOOD COUNT 8.31 K/uL (4.8-10.8)
[2017-07-06 03:41] LABS: ALBUMIN 3.6 gm/dl (3.4-5.0); CALCIUM 9.8 mg/dl (8.5-10.1); CREATININE 1.66 mg/dl (0.60-1.20); POTASSIUM 4.8 mmol/L (3.5-5.1)
[2017-07-06 03:51] LABS: TOTAL PROTEIN 8.1 gm/dl (6.4-8.2)
[2017-07-06] MEDS ORDERED: TRAMADOL HCL 50 MG HOME PACK PO ONE (04:15)
[2017-07-06] MEDS ORDERED: ONDANSETRON HOME PACK 4MG OD TAB PO ONE (04:15)
[2017-07-06 04:20] VITALS: BP 134/78; PULSE 68; O2SAT 99
== END 2017-07-06 04:21 | disposition home or self-care (01) ==
LOC: EDBD 01:47 → C.EDA 01:49
DX: M54.5 Low back pain (principal); M25.50 Pain in unspecified joint; G89.29 Other chronic pain; R11.0 Nausea; F90.9 Attention-deficit hyperactivity disorder, unspecified type; I10 Essential (primary) hypertension; F60.9 Personality disorder, unspecified; I25.10 Atherosclerotic heart disease of native coronary artery without angina pectoris; E11.9 Type 2 diabetes mellitus without complications; K21.9 Gastro-esophageal reflux disease without esophagitis; E21.3 Hyperparathyroidism, unspecified; M85.80 Other specified disorders of bone density and structure, unspecified site; G47.30 Sleep apnea, unspecified; M32.9 Systemic lupus erythematosus, unspecified; Z79.82 Long term (current) use of aspirin; Z79.899 Other long term (current) drug therapy; Z79.4 Long term (current) use of insulin; Z88.0 Allergy status to penicillin; Z88.8 Allergy status to other drugs, medicaments and biological substances

== ENCOUNTER 2017-07-08 05:11 | Inpatient (IN) | payer OTHER ==
[~2017-07-08] VITALS: Ht 165.1 cm; Wt 78.0 kg
[~2017-07-08 05:11] MED LIST changes: -CRG125 PO; -DICL1GEL12 TD; -ONDA4TAB10 SL
[2017-07-08] MEDS ORDERED: SODIUM CHLORIDE 0.9% 1000ML 1,000 ML IV STA (05:37)
[2017-07-08 05:42] LABS: HEMATOCRIT 36.8 % (37-47); HEMOGLOBIN 12.8 g/dL (12.0-16.0); MEAN CELL VOLUME 91.1 fL (80-100); MEAN CORPUSCULAR HEMOGLOBIN 31.7 pg (25-34); MEAN CORPUSCULAR HGB CONC 34.8 g/dl (32-36); MEAN PLATELET VOLUME 9.8 fL (7.4-10.4); PLATELET COUNT 278 K/uL (130-400); RED CELL DISTRIBUTION WIDTH CV 14.4 % (11.5-14.5); RED CELL DISTRIBUTION WIDTH SD 48.3 fL (36.4-46.3); WHITE BLOOD COUNT 14.31 K/uL (4.8-10.8)
--- NOTE | 2017-07-08 06:02 | EMERGENCY ROOM VISIT NOTE ---
History First contact with patient: 05:30 Chief Complaint: MENTAL HEALTH EVALUATION Stated Complaint: MENTAL HEALTH ASSESSMENT History of Present Illness The patient is a 57 year old female who presents to the Emergency Room for acute psychosis and altered mental status. Patient well known to department with recent visits increasing in agitation. Seen by [facility] and was making suicidal statement. She apparently ran from home (may have been screaming about her cats being in danger?) and was acting severely paranoid. Police have been looking for her for the past several hours after [facility] issued 302 petition. Brought in by EMS after she was found crawling [address] this ultrasound technologist. Patient states she is being chased. She notes she is very cold. She states she just wants to sleep and be away from everyone. She is unable to give further information. Unknown if drug or alcohol involved. No reported trauma. Patient seen multiple times over last few days for chronic back pain requesting pain medications and acting increasingly agitated but was felt not meeting criteria for 302 and refusing psychiatric evaluation at those times. Review of Systems Unable to evaluate secondary to altered mental status. Past Medical/Surgical History Medical Problems: (1) Anxiety (2) Attention deficit hyperactivity disorder (3) Benign hypertension (4) Borderline personality disorder (5) Cerebrovascular disease (6) Coronary artery disease (7) Diabetes mellitus type 2 (8) Gastroesophageal reflux disease (9) Hyperparathyroidism (10) Kidney transplant status, cadaveric (11) Leukocytosis (12) Major depression, recurrent (13) MDRO (multiple drug resistant organisms) resistance (14) Osteoporosis (15) Sepsis (16) Sleep apnea (17) Systemic lupus erythematosus (18) Urinary tract infection due to extended-spectrum beta lactamase (ESBL) producing Escherichia coli Surgical Problems: (1) Status post coronary artery stent placement (2) Status post kidney transplant (3) Status post parathyroidectomy Family History FH: dementia MOTHER FH: diabetes mellitus SISTER GRANDMOTHER FH: heart disease FATHER MOTHER FH: lung cancer FATHER FH: rheumatoid arthritis SISTER FHx: heart disease Social History Smoking Status: Unknown if Ever Smoked Alcohol Use: none Drug Use: none Marital Status: single Housing Status: lives alone Occupation Status: disabled Current/Historical Medications Scheduled Aspirin (Aspirin), 81 MG PO DAILY Baclofen (Lioresal), 10 MG PO TID Cyclosporine (Neoral), 50 MG PO BID Dexlansoprazole (Dexilant), 30 MG PO DAILY Duloxetine HCl (Cymbalta), 30 MG PO DAILY Ergocalciferol (Vitamin D 36069 Unit), 1 CAP PO WK Famotidine (Pepcid), 20 MG PO TID Gabapentin (Neurontin), 400 MG PO TID Insulin Glargine (Lantus Solostar), 20 UNITS SC QAM Isosorbide Mononitrate Ext Rel (Imdur Ext Rel), 60 MG PO QAM Liraglutide (Victoza), 1.8 MG SQ DAILY Lisinopril (Zestril), 5 MG PO DAILY Multivitamin (Multivitamin), 1 TAB PO DAILY Mycophenolate Mofetil (Cellcept), 250 MG PO BID Ocuvite Preservision (Ocuvite Preservision), 1 TAB PO DAILY Rosuvastatin Calcium (Crestor), 1 TAB PO DAILY Temazepam (Restoril), 15 MG PO HS Scheduled PRN Nitroglycerin (Nitrostat), 1 TAB SL UD PRN for Chest Pain Physical Exam Vital Signs Date Time Temp Pulse Resp B/P (MAP) Pulse Ox O2 Delivery O2 Flow Rate FiO2 07/08/17 07:05 36.4 70 24 158/84 99 Room Air 07/08/17 06:14 69 18 149/86 96 07/08/17 05:56 71 07/08/17 05:32 33.6 64 15 136/82 96 Room Air Physical Exam GENERAL: Dishevelled covered in dirt. Patient is unwell appearing and in moderate distress. Shivering and cool to touch EYES: No scleral icterus, unremarkable pupils. ENT: Mucous membranes dry, no nasal congestion. NECK: No masses appreciated, no meningismus, trachea is midline. RESPIRATORY: No dyspnea. Clear to auscultation and equal bilaterally. No wheeze , no rhonchi. CARDIOVASCULAR: Regular rate and rhythm. No murmurs, rubs, gallops appreciated. GASTROINTESTINAL: Abdomen soft, nontender, no peritonitis. Bowel sounds positive. No masses appreciated. BACK: No midline tenderness, no CVA tenderness EXTREMITIES: Bilateral knee bruising and abrasions with mild effusions bilaterally and pain with ROM both. Otherwise normal motion all extremities, no cyanosis, no edema. NEUROLOGIC: Patient mumbling and only periodically answering yes or no, moves all 4 extremities with purposeful movements, no focal weakness, cranial nerves grossly intact. SKIN: No rash, no jaundice, no diaphoresis. PSYCH: Patient mumbling mostly non-comprehensible words. Medical Decision & Procedures ER Provider Diagnostic Interpretation: X ray results are stated below per my interpretation: Chest: 1 view: No infiltrate, no effusion, normal cardiac border. Similar to previous CXRs Knee: Bilateral: 2 view each: No fracture, no dislocation, anterior soft tissue swelling Laboratory Results 07/08/17 05:30 Red Blood Count 4.04, Mean Corpuscular Volume 91.1, Mean Corpuscular Hemoglobin 31.7, Mean Corpuscular Hemoglobin Concent 34.8, Mean Platelet Volume 9.8, Neutrophils (%) (Auto) 75.5, Lymphocytes (%) (Auto) 14.0, Monocytes (%) (Auto) 9.5, Eosinophils (%) (Auto) 0.4, Basophils (%) (Auto) 0.3, Neutrophils # (Auto) 10.79, Lymphocytes # (Auto) 2.00, Monocytes # (Auto) 1.36, Eosinophils # (Auto) 0.06, Basophils # (Auto) 0.05 07/08/17 05:30 Test 07/08/17 05:30 07/08/17 05:37 07/08/17 05:52 07/08/17 06:25 White Blood Count 14.31 K/uL (4.8-10.8) Red Blood Count 4.04 M/uL (4.2-5.4) Hemoglobin 12.8 g/dL (12.0-16.0) Hematocrit 36.8 % (37-47) Mean Corpuscular Volume 91.1 fL (80-100) Mean Corpuscular Hemoglobin 31.7 pg (25-34) Mean Corpuscular Hemoglobin Concent 34.8 g/dl (32-36) Platelet Count 278 K/uL (130-400) Mean Platelet Volume 9.8 fL (7.4-10.4) Neutrophils (%) (Auto) 75.5 % Lymphocytes (%) (Auto) 14.0 % Monocytes (%) (Auto) 9.5 % Eosinophils (%) (Auto) 0.4 % Basophils (%) (Auto) 0.3 % Neutrophils # (Auto) 10.79 K/uL (1.4-6.5) Lymphocytes # (Auto) 2.00 K/uL (1.2-3.4) Monocytes # (Auto) 1.36 K/uL (0.11-0.59) Eosinophils # (Auto) 0.06 K/uL (0-0.5) Basophils # (Auto) 0.05 K/uL (0-0.2) RDW Standard Deviation 48.3 fL (36.4-46.3) RDW Coefficient of Variation 14.4 % (11.5-14.5) Immature Granulocyte % (Auto) 0.3 % Immature Granulocyte # (Auto) 0.05 K/uL (0.00-0.02) Red Blood Cell Morphology Unremarkable Est Creatinine Clear Calc Drug Dose 25.2 ml/min Estimated GFR () 24.0 Estimated GFR (Non- 20.7 BUN/Creatinine Ratio 16.4 (10-20) Osmolality 315 mOsm/kg (280-300) Calcium Level 9.4 mg/dl (8.5-10.1) Magnesium Level 1.9 mg/dl (1.8-2.4) Total Bilirubin 0.7 mg/dl (0.2-1) Aspartate Amino Transf (AST/SGOT) 17 U/L (15-37) Alanine Aminotransferase (ALT/SGPT) 26 U/L (12-78) Alkaline Phosphatase 135 U/L (45-117) Total Creatine Kinase 97 U/L (26-192) Troponin I < 0.015 ng/ml (0-0.045) Total Protein 7.8 gm/dl (6.4-8.2) Albumin 3.5 gm/dl (3.4-5.0) Globulin 4.3 gm/dl (2.5-4.0) Albumin/Globulin Ratio 0.8 (0.9-2) Beta-Hydroxybutyric Acid 5.92 mg/dL (0.2-2.81) Thyroid Stimulating Hormone (TSH) 1.220 uIu/ml (0.300-4.500) Salicylates Level < 1.7 mg/dl (2.8-20) Acetaminophen Level < 2 ug/ml (10-30) Ethyl Alcohol mg/dL < 3.0 mg/dl (0-3) Bedside Hemoglobin 11.2 g/dl (12.0-16.0) Bedside Hematocrit 33 % (37-47) Bedside Sodium 137 mEq/L (135-144) Bedside Potassium 6.2 mEq/L (3.3-5.0) Bedside Chloride 106 mEq/L (101-112) Bedside Total CO2 20 mEq/l (24-31) Anion Gap 18.0 mmol/L (16-25) Bedside Blood Urea Nitrogen 40 mg/dl (7-18) Bedside Creatinine 2.3 mg/dl (0.6-1.3) Bedside Glucose (other) 334 mg/dl (70-99) Bedside Ionized Calcium (Hannah) 1.20 mmol/l (1.12-1.32) Medications Administered Medications (Trade) Dose Ordered Sig/Suyapa Route Start Time Stop Time Status Last Admin Dose Admin Sodium Chloride 1,000 ml @ 125 mls/hr Q8H STAT IV 07/08/17 05:37 07/08/17 13:36 07/08/17 05:37 125 MLS/HR Insulin Human Regular (novoLIN-R U-100 PER UNIT) 10 units NOW STAT IV 07/08/17 06:28 07/08/17 06:30 DC 07/08/17 06:44 10 UNITS Sodium Chloride 500 ml @ 999 mls/hr Q31M STAT IV 07/08/17 06:34 07/08/17 07:04 DC 07/08/17 07:07 999 MLS/HR Calcium Gluconate (Calcium Gluconate 10%) 1,000 mg NOW STAT IV 07/08/17 06:34 07/08/17 06:35 DC 07/08/17 07:07 1,000 MG Sodium Bicarbonate (Sodium Bicarbonate 8.4% Inj) 50 ml NOW STAT IV 07/08/17 06:34 07/08/17 06:35 DC 07/08/17 07:08 50 ML ECG Per My Interpretation Indication: altered mental status Rate (beats per minute): 77 Rhythm: normal sinus (with very poor baseline (patient shivering). QTC is prolonged at ~550. ) Findings: LBBB Comparison ECG Date: 24-May-17 Change: Widened QRS, QTC, and LBBB is increased. Medical Decision Differential: Toxicological, Infectious, Stroke, SAH, Trauma, Electrolyte Abnormality, Hypoglycemia, Alcohol Intoxication, Drug Intoxication, Cardiac Abnormality, Sepsis, Meningitis/Encephalitis, Trauma, Excited Delirium, Serotonin Syndrome, Psychiatric, amongst other pathologies entertained. 57 yr old female arrives for psychiatric evaluation after fleeing [facility] and being found crawling on roadway. She is mumbling and clearly confused though after warming/fluids she is looking better and getting back to her (clearly manic) baseline. She is found to be hyperkalemic likely consistent with the EKG changes in addition to the acute hypthermia as well as acute renal failure. Suspect renal failure is combination not caring for self as well as dehydration. Given IV Fluids, Insulin, Bicarb and Calcium. She is not in rhabdo at this time. There is not evidence that this is ACS. CT Head negative. Symptoms and findings are not consistent with meningitis. CXR clear of infiltrate. Patient awake enough after warming that she adamantly fights against cath thus awaiting UA. Recent UCx with mixed ezra. WBC modestly elevated more consistent with dehydration that infection, but will clearly need close monitoring and evaluation. Will hold on blood cultures and lactic acid given likely not infectious at this time. BPs remained good throughout. She does have elevated osmolality and I discussed this with hospitalist and they will come evaluate patient further regarding this. Head Trauma GCS Score: 13 Medication Reconcilliation Current Medication List: was personally reviewed by me Impression Primary Impression: Altered mental status Additional Impressions: Acute psychosis Acute renal failure Hyperkalemia Hypothermia Acute electrocardiogram changes I have personally spent greater than 45 minutes of critical care time in the direct management of this patient. This was a life/limb threatening event. This includes time spent evaluating patient, direct bedside care, chart review, placing orders, interpretation of diagnostic studies, discussion with consultants, patient, and family members, as well as other required patient management activities. This 45 minutes is in excess of all separately billable procedures. Departure Information Referrals No Doctor, Assigned (PCP) Patient Instructions My [facility] Problem Qualifiers
[2017-07-08 06:03] LABS: BASO % 0.3 %; BASO ABS # 0.05 K/uL (0-0.2); EOS % 0.4 %; EOS ABS # 0.06 K/uL (0-0.5); IG# 0.05 K/uL (0.00-0.02); MONO % 9.5 %; MONO ABS # 1.36 K/uL (0.11-0.59); NEUT % 75.5 %; NEUT ABS # 10.79 K/uL (1.4-6.5)
[2017-07-08 06:18] LABS: ALBUMIN 3.5 gm/dl (3.4-5.0); ALKALINE PHOSPHATASE 135 U/L (45-117); ALT/SGPT 26 U/L (12-78); AST/SGOT 17 U/L (15-37); BLOOD UREA NITROGEN 41 mg/dl (7-18); CALCIUM 9.4 mg/dl (8.5-10.1); CARBON DIOXIDE 20 mmol/L (21-32); CREATININE 2.48 mg/dl (0.60-1.20); GLUCOSE 396 mg/dl (70-99); POTASSIUM 6.4 mmol/L (3.5-5.1); SODIUM 132 mmol/L (136-145); TOTAL PROTEIN 7.8 gm/dl (6.4-8.2)
[2017-07-08] MEDS ORDERED: NovoLIN-R INSULIN PER UNIT CHARGE IV STA (06:28)
[2017-07-08] MEDS ORDERED: CALCIUM GLUCONATE 10% 10 ML VIAL IV STA (06:34)
[2017-07-08] MEDS ORDERED: SODIUM CHLORIDE 0.9% 500ML 500 ML IV STA (06:34)
[2017-07-08] MEDS ORDERED: SODIUM BICARB 8.4% INJ 50 MEQ/50 ML SYR IV STA (06:34)
--- NOTE | 2017-07-08 06:38 | DIAGNOSTIC IMAGING REPORT ---
CHEST ONE VIEW PORTABLE CLINICAL HISTORY: AMS, dyspnea COMPARISON STUDY: 06/20/2017 FINDINGS: The bones soft tissues and hemidiaphragms are normal. The cardiomediastinal silhouette is normal. The lungs are clear. The pulmonary vasculature is normal. IMPRESSION: Negative chest. The above report was generated using voice recognition software. It may contain grammatical, syntax or spelling errors. Electronically signed by: Clif Motley M.D. 07/08/2017 6:36 AM Dictated Date/Time: 07/08/2017 6:35 AM
--- NOTE | 2017-07-08 06:39 | DIAGNOSTIC IMAGING REPORT ---
R KNEE 1 OR 2 VIEWS ROUTINE CLINICAL HISTORY: right knee pain s/p crawling on [place] pain COMPARISON: None. DISCUSSION: The bones and joint spaces appear intact. There is no evidence of fracture, dislocation or bony disease. Mild degenerative change medial joint compartment. No acute bony abnormality. IMPRESSION: No acute bony abnormality. The above report was generated using voice recognition software. It may contain grammatical, syntax or spelling errors. Electronically signed by: Clif Motley M.D. 07/08/2017 6:37 AM Dictated Date/Time: 07/08/2017 6:37 AM
--- NOTE | 2017-07-08 06:40 | DIAGNOSTIC IMAGING REPORT ---
L KNEE 1 OR 2 VIEWS ROUTINE CLINICAL HISTORY: left knee injury s/p crawling on [place] pain COMPARISON: None. DISCUSSION: The bones and joint spaces appear intact. There is no evidence of fracture, dislocation or bony disease. Mild degenerative change medial joint compartment. No acute bony abnormality. IMPRESSION: Mild degenerative change. No acute bony abnormality. The above report was generated using voice recognition software. It may contain grammatical, syntax or spelling errors. Electronically signed by: Clif Motley M.D. 07/08/2017 6:39 AM Dictated Date/Time: 07/08/2017 6:38 AM
[2017-07-08 06:44] LABS: ISTAT CREATININE 2.3 mg/dl (0.6-1.3); ISTAT IONIZED CALCIUM 1.2 mmol/l (1.12-1.32); ISTAT POTASSIUM 6.2 mEq/L (3.3-5.0)
--- NOTE | 2017-07-08 07:05 | DIAGNOSTIC IMAGING REPORT ---
HEAD WITHOUT CONTRAST (CT) CT DOSE: 767.83 mGy.cm HISTORY: Mental status change AMS, psychiatric pt TECHNIQUE: Multiaxial CT images of the head were performed without the use of intravenous contrast. A dose lowering technique was utilized adhering to the principles of ALARA. Comparison: 12/03/2016 Findings: The paranasal sinuses and mastoid air cells are clear. The calvarium and skull base are intact. The ventricles and sulci are within normal limits. There is no mass, hematoma, midline shift, or acute infarct. Impression: No acute intracranial abnormality. The above report was generated using voice recognition software. It may contain grammatical, syntax or spelling errors. Electronically signed by: Clif Motley M.D. 07/08/2017 7:04 AM Dictated Date/Time: 07/08/2017 7:02 AM
[2017-07-08] MEDS ORDERED: NITROGLYCERIN 0.4 MG SL PER TAB CHARGE SL PRN (07:45)
[2017-07-08] MEDS ORDERED: ACETAMINOPHEN 325 MG TAB PO PRN (07:45)
[2017-07-08] MEDS ORDERED: ONDANSETRON INJ 2 MG/ML 2 ML VIAL IV PRN (07:45)
[2017-07-08] MEDS ORDERED: SODIUM POLYST. SULF SUSP 15G/60ML PO STA (07:48)
--- NOTE | 2017-07-08 08:18 | History and Physical ---
History & Physical Date & Time of Service: Jul 08, 2017 at 08:11 Chief Complaint: Mental Health Assessment Primary Care Physician: No Doctor, Assigned History of Present Illness This patient brought to the ER reportedly on a 302 petition that she has been having decompensation of her mental health lately. Reportedly can help and the police were involved with her with some suicidal ideation at home upon serving to 302 the patient fled was eventually found a few hours later having been out in the weather suffering from hypothermia. Upon evaluation she is found to be acute on chronic renal failure stage III with hyperkalemia there was some initial concerns for EKG changes although the patient's baseline was difficult due to her shivering repeat EKG after administration of glucose insulin and bicarbonate did not show any acute changes of hyperkalemia the patient is withdrawn speaking in low tones having no focal complaints at this current time and at this time is agreeable to coming to the hospital for further treatment with eventual disposition being to mental health Past Medical/Surgical History Medical Problems: (1) 302, involuntary commitment (2) Acute diarrhea (3) Acute kidney injury (4) Anxiety (5) Attention deficit hyperactivity disorder (6) Back pain (7) Benign hypertension (8) Borderline personality disorder (9) Cerebrovascular disease (10) Chest pain (11) Chronic pain (12) Chronic pain (13) Coronary artery disease (14) Dehydration (15) Dehydration (16) Diabetes mellitus type 2 (17) Diarrhea (18) Gastroesophageal reflux disease (19) Generalized weakness (20) Hyperparathyroidism (21) Immunosuppression (22) Influenza A (23) Joint pain (24) Joint pain (25) Kidney transplant status, cadaveric (26) Leukocytosis (27) Low back pain (28) Lower abdominal pain (29) Major depression, recurrent (30) MDRO (multiple drug resistant organisms) resistance (31) Medication refill (32) Medication refill (33) Mood disorder (34) Nausea (35) Nausea (36) Nausea & vomiting (37) Odontalgia (38) Osteoporosis (39) Patient refused evaluation (40) Refusal of care by patient (41) Renal insufficiency (42) Sepsis (43) Sepsis (44) Sleep apnea (45) Systemic lupus erythematosus (46) Thrombocytopenia (47) Urinary tract infection (48) Urinary tract infection due to extended-spectrum beta lactamase (ESBL) producing Escherichia coli (49) UTI (urinary tract infection) (50) UTI (urinary tract infection) (51) UTI (urinary tract infection) (52) UTI (urinary tract infection) (53) Vomiting (54) Weakness Surgical Problems: (1) Status post coronary artery stent placement (2) Status post kidney transplant (3) Status post parathyroidectomy Family History FH: dementia MOTHER FH: diabetes mellitus SISTER GRANDMOTHER FH: heart disease FATHER MOTHER FH: lung cancer FATHER FH: rheumatoid arthritis SISTER FHx: heart disease Social History Smoking Status: Unknown if Ever Smoked Drug Use: none Marital Status: single Housing status: lives alone Occupational Status: disabled Immunizations History of Influenza Vaccine: Yes History of Tetanus Vaccine?: Unknown History of Pneumococcal: Yes Pneumococcal Date: Jun 23, 2001 History of Hepatitis B Vaccine: Unknown Allergies Coded Allergies: Penicillins (Verified Allergy, Mild, ITCHY, ANXIETY, 07/08/17) Loperamide (Verified Allergy, Unknown, 07/08/17) Vancomycin (Verified Allergy, Unknown, 07/08/17) Ziprasidone (Verified Allergy, Unknown, itching, 07/08/17) Home Medications Scheduled Aspirin (Aspirin), 81 MG PO DAILY Baclofen (Lioresal), 10 MG PO TID Cyclosporine (Neoral), 50 MG PO BID Dexlansoprazole (Dexilant), 30 MG PO DAILY Duloxetine HCl (Cymbalta), 30 MG PO DAILY Ergocalciferol (Vitamin D 71099 Unit), 1 CAP PO WK Famotidine (Pepcid), 20 MG PO TID Gabapentin (Neurontin), 400 MG PO TID Insulin Glargine (Lantus Solostar), 20 UNITS SC QAM Isosorbide Mononitrate Ext Rel (Imdur Ext Rel), 60 MG PO QAM Liraglutide (Victoza), 1.8 MG SQ DAILY Lisinopril (Zestril), 5 MG PO DAILY Multivitamin (Multivitamin), 1 TAB PO DAILY Mycophenolate Mofetil (Cellcept), 250 MG PO BID Ocuvite Preservision (Ocuvite Preservision), 1 TAB PO DAILY Rosuvastatin Calcium (Crestor), 1 TAB PO DAILY Temazepam (Restoril), 15 MG PO HS Scheduled PRN Nitroglycerin (Nitrostat), 1 TAB SL UD PRN for Chest Pain Review of Systems ROS: well nourished well developed. Appears to have a depressed affect No double vision blurry vision No problems with speech or swallowing No palpitations, chest pain or pressure No Wheezing or breathing issues No abdominal pain nausea vomiting diarrhea changes in appetite or weight No burning urine urine frequency or changes in color, the patient states that her urine is about usual for her it is noted that she does have a renal transplant Patient has some focal knee joint pain likely occurred as she was crawling on the ground No unusual bruising or bleeding No focused back pain or numbness or loss of strength No changes in memory or orientation at this time Physical Exam Vital Signs Date Time Temp Pulse Resp B/P (MAP) Pulse Ox O2 Delivery O2 Flow Rate FiO2 07/08/17 07:46 36.4 65 18 131/66 97 Room Air 07/08/17 07:05 36.4 70 24 158/84 99 Room Air 07/08/17 06:14 69 18 149/86 96 07/08/17 05:56 71 07/08/17 05:32 33.6 64 15 136/82 96 Room Air General Appearance: WD/WN, + mild distress Head: normocephalic, atraumatic Eyes: normal inspection, PERRL, EOMI, sclerae normal ENT: hearing grossly normal, pharynx normal Neck: supple, no JVD Respiratory/Chest: chest non-tender, lungs clear, normal breath sounds Cardiovascular: regular rate, rhythm, no murmur Abdomen/GI: normal bowel sounds, non tender, soft Extremities/Musculoskelatal: no pedal edema, normal range of motion Neurologic/Psych: alert, oriented x 3 Skin: normal color, warm/dry, no rash Diagnostics Laboratory Results Results Past 24 Hours Test 07/08/17 05:30 07/08/17 05:52 07/08/17 06:25 07/08/17 07:13 Range/Units White Blood Count 14.31 4.8-10.8 K/uL Red Blood Count 4.04 4.2-5.4 M/uL Hemoglobin 12.8 12.0-16.0 g/dL Hematocrit 36.8 37-47 % Mean Corpuscular Volume 91.1 80-100 fL Mean Corpuscular Hemoglobin 31.7 25-34 pg Mean Corpuscular Hemoglobin Concent 34.8 32-36 g/dl Platelet Count 278 130-400 K/uL Mean Platelet Volume 9.8 7.4-10.4 fL Neutrophils (%) (Auto) 75.5 % Lymphocytes (%) (Auto) 14.0 % Monocytes (%) (Auto) 9.5 % Eosinophils (%) (Auto) 0.4 % Basophils (%) (Auto) 0.3 % Neutrophils # (Auto) 10.79 1.4-6.5 K/uL Lymphocytes # (Auto) 2.00 1.2-3.4 K/uL Monocytes # (Auto) 1.36 0.11-0.59 K/uL Eosinophils # (Auto) 0.06 0-0.5 K/uL Basophils # (Auto) 0.05 0-0.2 K/uL RDW Standard Deviation 48.3 36.4-46.3 fL RDW Coefficient of Variation 14.4 11.5-14.5 % Immature Granulocyte % (Auto) 0.3 % Immature Granulocyte # (Auto) 0.05 0.00-0.02 K/uL Red Blood Cell Morphology Unremarkable Sodium Level 132 136-145 mmol/L Potassium Level 6.4 3.5-5.1 mmol/L Chloride Level 103 98-107 mmol/L Carbon Dioxide Level 20 21-32 mmol/L Anion Gap 9.0 18.0 16-25 mmol/L Blood Urea Nitrogen 41 7-18 mg/dl Creatinine 2.48 0.60-1.20 mg/dl Est Creatinine Clear Calc Drug Dose 25.2 ml/min Estimated GFR () 24.0 Estimated GFR (Non- 20.7 BUN/Creatinine Ratio 16.4 10-20 Random Glucose 396 70-99 mg/dl Osmolality 315 280-300 mOsm/kg Calcium Level 9.4 8.5-10.1 mg/dl Magnesium Level 1.9 1.8-2.4 mg/dl Total Bilirubin 0.7 0.2-1 mg/dl Aspartate Amino Transf (AST/SGOT) 17 15-37 U/L Alanine Aminotransferase (ALT/SGPT) 26 12-78 U/L Alkaline Phosphatase 135 45-117 U/L Total Creatine Kinase 97 26-192 U/L Troponin I < 0.015 0-0.045 ng/ml Total Protein 7.8 6.4-8.2 gm/dl Albumin 3.5 3.4-5.0 gm/dl Globulin 4.3 2.5-4.0 gm/dl Albumin/Globulin Ratio 0.8 0.9-2 Beta-Hydroxybutyric Acid 5.92 0.2-2.81 mg/dL Thyroid Stimulating Hormone (TSH) 1.220 0.300-4.500 uIu/ml Salicylates Level < 1.7 2.8-20 mg/dl Acetaminophen Level < 2 10-30 ug/ml Ethyl Alcohol mg/dL < 3.0 0-3 mg/dl Bedside Hemoglobin 11.2 12.0-16.0 g/dl Bedside Hematocrit 33 37-47 % Bedside Sodium 137 135-144 mEq/L Bedside Potassium 6.2 3.3-5.0 mEq/L Bedside Chloride 106 101-112 mEq/L Bedside Total CO2 20 24-31 mEq/l Bedside Blood Urea Nitrogen 40 7-18 mg/dl Bedside Creatinine 2.3 0.6-1.3 mg/dl Bedside Glucose (other) 334 70-99 mg/dl Bedside Ionized Calcium (Hannah) 1.20 1.12-1.32 mmol/l Urine Color YELLOW Urine Appearance CLEAR CLEAR Urine pH 6.5 4.5-7.5 Urine Specific [place] 1.012 1.000-1.030 Urine Protein NEG NEG Urine Glucose (UA) 2+ NEG Urine Ketones NEG NEG Urine Occult Blood NEG NEG Urine Nitrite NEG NEG Urine Bilirubin NEG NEG Urine Urobilinogen NEG NEG Urine Leukocyte Esterase SMALL NEG Urine WBC (Auto) 10-30 0-5 /hpf Urine RBC (Auto) 0-4 0-4 /hpf Urine Hyaline Casts (Auto) 1-5 0-5 /lpf Urine Epithelial Cells (Auto) 20-30 0-5 /lpf Urine Bacteria (Auto) NEG NEG Urine Opiates Screen NEG NEG Urine Methadone, Qualitative NEG NEG Urine Barbiturates NEG NEG Urine Phencyclidine (PCP) Level NEG NEG Ur Amphetamine/Methamphetamine NEG NEG MDMA (Ecstasy) Screen NEG NEG Urine Benzodiazepines Screen NEG NEG Urine Cocaine Metabolite NEG NEG Urine Marijuana (THC) NEG NEG Microbiology Results 07/08/17 Urine Culture, Received Pending Diagnostic Radiology CT had unremarkable bilateral knee x-rays are unremarkable CXR normal other (Repeat EKG does not show peaked T waves) Impression Assessment and Plan 57-year-old female who was brought in by police after through 2 warrant found to be hypothermic from exposure hyperkalemic with acute renal failure she is a non-anion gap acidosis also Patient is rewarmed in the ER with a bear hugger she will be given warmed IV fluids to treat her hypothermia Hyperkalemia, acute on chronic renal failure, is unclear whether the patient is taking care rejection medications in addition she is prescribed an HEIDI inhibitor which if she is dehydrated could precipitate this also. We will continue her cyclosporine and CellCept holding her lisinopril and hydrating her with normal saline will have a nephrology consult she was administered Kayexalate 30 g in the ER and will be on a potassium sparing diet Regarding her known coronary disease that she is previously had coronary stent will maintain her aspirin isosorbide and carvedilol she has no complaints of active chest pain at this time Uncontrolled diabetes with glucoses in 300s the patient's not clear about whether she is taking her diabetic medications at home will hold her Victoza continue Lantus with insulin sliding scale For her depression and anxiety patient typically takes Cymbalta this will be continued we will hold her Restoril have a psychiatric consultation Regarding her musculoskeletal pains baclofen will be held continue her Neurontin and this also may be helpful with mood stabilization DVT prevention is heparin subcu I personally spoke to the psychiatric liaison in the ER she will try to locate the 3020 warrant placed on the chart and be involved with the patient's eventual disposition Advanced Directives Existing Advance Directive: Yes Existing Living Will: No Resuscitation Status VTE Prophylaxis Will order VTE Prophylaxis: Yes Reason for no VTE drug order: Treatment not indicated
[2017-07-08 09:38] VITALS: BP 153/83; PULSE 74; TEMP 36.7; O2SAT 97; BMI 28.6
[2017-07-08] MEDS ORDERED: ASPIRIN 81 MG ECTAB PO SCH (10:00)
[2017-07-08] MEDS ORDERED: CycloSPORINE (NEORAL) 25 MG CAP PO SCH (10:00)
[2017-07-08] MEDS ORDERED: ISOSORBIDE MONONITRATE 30 MG TABCR PO SCH (10:00)
[2017-07-08] MEDS ORDERED: SODIUM CHLORIDE 0.9% 1000ML 1,000 ML IV SCH (10:00)
[2017-07-08] MEDS ORDERED: CEROVITE ADV FORMULA TAB PO SCH (10:00)
[2017-07-08] MEDS ORDERED: INSULIN GLARGINE SOLOSTAR 100 UNITS/ML 3 ML PEN SC SCH (10:00)
[2017-07-08] MEDS ORDERED: MYCOPHENOLATE MOFETIL 250 MG CAP (CELLCEPT) PO SCH (10:00)
[2017-07-08 10:48] VITALS: BP 151/54; PULSE 77; TEMP 37; O2SAT 94
[2017-07-08] MEDS ORDERED: INSULIN ASPART 100 UNITS/ML 3 ML PEN SC SCH (11:00)
--- NOTE | 2017-07-08 12:51 | Nephrology Consultation ---
Nephrology Consultation Date & Providers Date of Consultation: Jul 08, 2017. Primary Care Provider: Tamiko Doctor, Assigned Referring Provider: Reason for Consultation Management of IRIS, Hyperkalemia and metabolic acidosis with h/o DDRT History of Present Illness Kecia is a 57 year old female with past medical history significant for hypertension, stage III chronic kidney disease with history of donor renal transplant admitted to the hospital with 302 petition with acute psychosis and change in mental health. Nephrology consult was requested to manage acute kidney injury, metabolic acidosis and hyperkalemia . Electronic medical records including labs and imaging were reviewed in detail during patient's visit. Kecia was brought to the Emergency Room by EMS after [place] with acute psychosis and change in mental status. She has history of psychotic disorder and had repeated hospital admission recently with recurrent acute kidney injury in the setting of UTI, pneumonia and volume depletion. Apparently her cat went out of home and she is afraid that her CT was killed on the highway she went to look for her cat. She has disease donor renal transplant, baseline creatinine has been around 1.2- 1.3. On admission she was found to have acute kidney injury, creatinine was 2.5 , hyperkalemia, potassium was 6.5. UA negative for proteinuria, hematuria pyuria. She was given Kayexalate 30 gram and IV normal saline was ordered. 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 Eventually she received a disease donor renal transplant in 1998. She has been enjoying at pretty decent allograft function baseline creatinine has been around 1-1.2 however had several episodes of acute kidney injury previously. No history of rejection. She was seen by as several sewer over the years and had noncompliance issues Lately she has been seeing Dr. Ortiz, last visit with Dr. Ortiz was in August 2016 and after that there was several cancellation and no shows. She has been on Cyclosporine 50 twice a day and mycophenolate 250 twice a day. Not on chronic steroids. During the visit she was tearful, angry and agitated, keep saying that she does not want to do anything with the " cat killers". According to the nursing staff she has been calling everyone in the hospital cat killer. She has been refusing repeat lab and IV fluid. Did not want to get engaged in any conversation regarding her on health and only focused on her cat. Allergies Coded Allergies: Penicillins (Verified Allergy, Mild, ITCHY, ANXIETY, 07/08/17) Loperamide (Verified Allergy, Unknown, 07/08/17) Vancomycin (Verified Allergy, Unknown, 07/08/17) Ziprasidone (Verified Allergy, Unknown, itching, 07/08/17) Inpatient Medications Current Inpatient Medications Medications (Trade) Dose Ordered Sig/[place]uy[place] Route Start Time Stop Time Status Last Admin Dose Admin Aspirin (Ecotrin Tab) 81 mg DAILY PO 07/08/17 10:00 08/07/17 09:59 Cyclosporine (Neoral Cap) 50 mg BID PO 07/08/17 10:00 08/07/17 09:59 Famotidine (Pepcid Tab) 20 mg TID PO 07/08/17 14:00 08/07/17 13:59 Gabapentin (Neurontin Cap) 400 mg TID PO 07/08/17 14:00 08/07/17 13:59 Insulin Glargine (Lantus Solostar Pen) 20 units QAM SC 07/08/17 10:00 08/07/17 09:59 Isosorbide Mononitrate (Imdur Ext Rel Tab) 60 mg QAM PO 07/08/17 10:00 08/07/17 09:59 Mycophenolate Mofetil (Cellcept Cap) 250 mg BID PO 07/08/17 10:00 08/07/17 09:59 Multivitamins/ Minerals (Multivitamin W/ Minerals Tab) 1 tab DAILY PO 07/08/17 10:00 08/07/17 09:59 Sodium Chloride 1,000 ml @ 100 mls/hr Q10H IV 07/08/17 10:00 08/07/17 09:59 Heparin Sodium (Porcine) (Heparin Sq 5000 Unit/0.5ml) 5,000 unit Q12 SQ 07/08/17 21:00 08/07/17 20:59 Acetaminophen (Tylenol Tab) 650 mg Q4H PRN PO 07/08/17 07:45 08/07/17 07:44 Ondansetron HCl (Zofran Inj) 4 mg Q6H PRN IV 07/08/17 07:45 08/07/17 07:44 Nitroglycerin (Nitrostat Tab) 0.4 mg UD PRN SL 07/08/17 07:45 08/07/17 07:44 Insulin Aspart (novoLOG ASPART) SLIDING SCALE PARAMETER ACHS SC 07/08/17 11:00 08/07/17 10:59 Family History FH: dementia MOTHER FH: diabetes mellitus SISTER GRANDMOTHER FH: heart disease FATHER MOTHER FH: lung cancer FATHER FH: rheumatoid arthritis SISTER FHx: heart disease Social History Smoking Status: Unknown if Ever Smoked Drug Use: none Marital Status: single Housing Status: lives alone Occupation: disabled Review of Systems A complete review of systems was performed. Pertinent positives are noted above. All other systems are negative. Physical Exam Date Time Temp Pulse Resp B/P (MAP) Pulse Ox O2 Delivery O2 Flow Rate FiO2 07/08/17 08:52 80 20 169/73 96 07/08/17 08:17 72 20 148/73 97 Room Air 07/08/17 07:46 36.4 65 18 131/66 97 Room Air 07/08/17 07:05 36.4 70 24 158/84 99 Room Air 07/08/17 06:14 69 18 149/86 96 07/08/17 05:56 71 07/08/17 05:32 33.6 64 15 136/82 96 Room Air Exam was limited as patient was not cooperative. GENERAL: Middle-aged female, awake, alert, angry, agitated and tearful HEENT: Atraumatic, normocephalic. NECK: Supple MOUTH and THROAT: Moist oral mucosa. RESPIRATORY: Breathing comfortably however, exam was suboptimal as patient was not cooperating CARDIOVASCULAR: S1, S2 normal, rate rhythm regular. ABDOMEN: Soft, nontender, positive bowel sound. EXTREMITY: No lower extremity edema NEURO: speech fluent. PSYCHIATRY: Repeated crying spells, agitated and angry Laboratory Results Last 24 Hours Test 07/08/17 05:30 07/08/17 05:52 07/08/17 06:25 07/08/17 07:13 White Blood Count 14.31 K/uL Red Blood Count 4.04 M/uL Hemoglobin 12.8 g/dL Hematocrit 36.8 % Mean Corpuscular Volume 91.1 fL Mean Corpuscular Hemoglobin 31.7 pg Mean Corpuscular Hemoglobin Concent 34.8 g/dl Platelet Count 278 K/uL Mean Platelet Volume 9.8 fL Neutrophils (%) (Auto) 75.5 % Lymphocytes (%) (Auto) 14.0 % Monocytes (%) (Auto) 9.5 % Eosinophils (%) (Auto) 0.4 % Basophils (%) (Auto) 0.3 % Neutrophils # (Auto) 10.79 K/uL Lymphocytes # (Auto) 2.00 K/uL Monocytes # (Auto) 1.36 K/uL Eosinophils # (Auto) 0.06 K/uL Basophils # (Auto) 0.05 K/uL RDW Standard Deviation 48.3 fL RDW Coefficient of Variation 14.4 % Immature Granulocyte % (Auto) 0.3 % Immature Granulocyte # (Auto) 0.05 K/uL Red Blood Cell Morphology Unremarkable Sodium Level 132 mmol/L Potassium Level 6.4 mmol/L Chloride Level 103 mmol/L Carbon Dioxide Level 20 mmol/L Anion Gap 9.0 mmol/L 18.0 mmol/L Blood Urea Nitrogen 41 mg/dl Creatinine 2.48 mg/dl Est Creatinine Clear Calc Drug Dose 25.2 ml/min Estimated GFR () 24.0 Estimated GFR (Non- 20.7 BUN/Creatinine Ratio 16.4 Random Glucose 396 mg/dl Osmolality 315 mOsm/kg Calcium Level 9.4 mg/dl Magnesium Level 1.9 mg/dl Total Bilirubin 0.7 mg/dl Aspartate Amino Transf (AST/SGOT) 17 U/L Alanine Aminotransferase (ALT/SGPT) 26 U/L Alkaline Phosphatase 135 U/L Total Creatine Kinase 97 U/L Troponin I < 0.015 ng/ml Total Protein 7.8 gm/dl Albumin 3.5 gm/dl Globulin 4.3 gm/dl Albumin/Globulin Ratio 0.8 Beta-Hydroxybutyric Acid 5.92 mg/dL Thyroid Stimulating Hormone (TSH) 1.220 uIu/ml Salicylates Level < 1.7 mg/dl Acetaminophen Level < 2 ug/ml Ethyl Alcohol mg/dL < 3.0 mg/dl Bedside Hemoglobin 11.2 g/dl Bedside Hematocrit 33 % Bedside Sodium 137 mEq/L Bedside Potassium 6.2 mEq/L Bedside Chloride 106 mEq/L Bedside Total CO2 20 mEq/l Bedside Blood Urea Nitrogen 40 mg/dl Bedside Creatinine 2.3 mg/dl Bedside Glucose (other) 334 mg/dl Bedside Ionized Calcium (Hannah) 1.20 mmol/l Urine Color YELLOW Urine Appearance CLEAR Urine pH 6.5 Urine Specific [place] 1.012 Urine Protein NEG Urine Glucose (UA) 2+ Urine Ketones NEG Urine Occult Blood NEG Urine Nitrite NEG Urine Bilirubin NEG Urine Urobilinogen NEG Urine Leukocyte Esterase SMALL Urine WBC (Auto) 10-30 /hpf Urine RBC (Auto) 0-4 /hpf Urine Hyaline Casts (Auto) 1-5 /lpf Urine Epithelial Cells (Auto) 20-30 /lpf Urine Bacteria (Auto) NEG Urine Opiates Screen NEG Urine Methadone, Qualitative NEG Urine Barbiturates NEG Urine Phencyclidine (PCP) Level NEG Ur Amphetamine/Methamphetamine NEG MDMA (Ecstasy) Screen NEG Urine Benzodiazepines Screen NEG Urine Cocaine Metabolite NEG Urine Marijuana (THC) NEG Test 07/08/17 09:13 07/08/17 09:55 Bedside Glucose 100 mg/dl Impression 57-year-old female with acute kidney injury with history of stage 3 chronic kidney disease with prior history of donor renal transplant. Baseline creatinine has been 1.1-1.2 with history of recurrent episodes of acute kidney injury. No history of acute or chronic rejection before. Brought to the hospital by EMS for acute psychosis and change in mental status. She was admitted under 302 petition. On admission creatinine was 2.5, potassium 6.5 with non gap metabolic acidosis. She was given Kayexalate 30 grams, continued on IV normal saline. Urinalysis with no proteinuria, hematuria bacteria. Acute kidney injury most likely hemodynamically mediated with volume depletion, unlikely allograft rejection. Recommendations --tried to repeatedly explained to the patient regarding acute kidney injury and hyperkalemia and risk of cardiac arrhythmia or sudden cardiac with hyperkalemia and repeatedly advised patient to allow us to have the lab done and start on IV fluid. Patient verbalized understanding the risk however repeatedly refused those. --repeat serum potassium if patient allows --Continue on Cyclosporin and cellcept --continue to hold lisinopril, avoid NSAIDs and other nephrotoxic medications --renal panel daily, with patient's history of recurrent acute kidney injury she is at risk for progressive renal impairment Thank you for allowing me to participate in your patient's care. Will follow.
--- NOTE | 2017-07-08 13:13 | Psychiatric Consultation ---
Consultation Date of Consultation Jul 08, 2017. Identifying Data 57 yo female with history of multiple medical conditions listed below, and borderline personality disorder, who fled from [facility] after making suicidal statements to the [facility] nurse, and then fled. Consult requested to evaluate need for 302. Chief Complaint "You should know that I don't talk to shrinks.". History of Present Illness 57 yo woman who is reported to have made suicidal statements about wanting to cause herself to go into diabetic shock or taking tylenol to OD. [facility] was sent to her home, and when they arrived, she is reported to have fled after her cat. She was later found crawling along side the road. In the ED her potassium was elevated as was her sugar and she was admitted medically. The [facility] worker, Ashia Xiao completed a 302 petitioner's statement only. Today she is not cooperating with care (ie refusing lab draws). She did sign a behavioral contract, but is unable to comply with it as she has been disrespectful to staff. At the time I see the patient she is lying on her back in her bed, eyes closed with one to one attendant at the bedside. I introduce myself and she says that she doesn't talk to shrinks. I ask her to be respectful as I work toward understanding how I can help her, to which she says "You can't.". She begins to swear at me and I remind her to be respectful. She answers some questions, specifically that she is not suicidal, not homicidal , she is fully oriented, and wants to be discharged. I remind her that if she wants people to care about her, then its a two way street. "I know. Its all my fault.". After this she will not answer any more questions and tells me not to let the door hit me on the way out. Past Psychiatric History Current OP Treatment: no current treatment Prior OP Treatment: psychiatrist, therapist, case management associate Prior Psych Hospitalizations: [facility], other Past Medical/Surgical History (1) Altered mental status (2) Hyperparathyroidism (3) Osteoporosis (4) Diabetes mellitus type 2 (5) Benign hypertension (6) Coronary artery disease (7) Cerebrovascular disease Allergies Allergies: Coded Allergies: Penicillins (Verified Allergy, Mild, ITCHY, ANXIETY, 07/08/17) Loperamide (Verified Allergy, Unknown, 07/08/17) Vancomycin (Verified Allergy, Unknown, 07/08/17) Ziprasidone (Verified Allergy, Unknown, itching, 07/08/17) Home Medications Scheduled Aspirin (Aspirin), 81 MG PO DAILY Baclofen (Lioresal), 10 MG PO TID Cyclosporine (Neoral), 50 MG PO BID Dexlansoprazole (Dexilant), 30 MG PO DAILY Duloxetine HCl (Cymbalta), 30 MG PO DAILY Ergocalciferol (Vitamin D 18986 Unit), 1 CAP PO WK Famotidine (Pepcid), 20 MG PO TID Gabapentin (Neurontin), 400 MG PO TID Insulin Glargine (Lantus Solostar), 20 UNITS SC QAM Isosorbide Mononitrate Ext Rel (Imdur Ext Rel), 60 MG PO QAM Liraglutide (Victoza), 1.8 MG SQ DAILY Lisinopril (Zestril), 5 MG PO DAILY Multivitamin (Multivitamin), 1 TAB PO DAILY Mycophenolate Mofetil (Cellcept), 250 MG PO BID Ocuvite Preservision (Ocuvite Preservision), 1 TAB PO DAILY Rosuvastatin Calcium (Crestor), 1 TAB PO DAILY Temazepam (Restoril), 15 MG PO HS Scheduled PRN Nitroglycerin (Nitrostat), 1 TAB SL UD PRN for Chest Pain Family History FH: dementia MOTHER FH: diabetes mellitus SISTER GRANDMOTHER FH: heart disease FATHER MOTHER FH: lung cancer FATHER FH: rheumatoid arthritis SISTER FHx: heart disease Refuses to answer questions Smoking Use Smoking Status: Never Smoker Substance History Refuses to answer questions Personal History Lives in: [place] alone Education: started college Children: none Review of Systems Refused to participate Examination Vital Signs Vital Signs Past 12 Hours Date Time Temp Pulse Resp B/P (MAP) Pulse Ox O2 Delivery O2 Flow Rate FiO2 07/08/17 10:48 37.0 77 18 151/54 (86) 94 Room Air 07/08/17 09:38 36.7 74 24 153/83 97 Room Air 07/08/17 08:52 80 20 169/73 96 07/08/17 08:17 72 20 148/73 97 Room Air 07/08/17 07:46 36.4 65 18 131/66 97 Room Air 07/08/17 07:05 36.4 70 24 158/84 99 Room Air 07/08/17 06:14 69 18 149/86 96 07/08/17 05:56 71 07/08/17 05:32 33.6 64 15 136/82 96 Room Air Laboratory Results Last 24 Hours Test 07/08/17 05:30 07/08/17 05:52 07/08/17 06:25 07/08/17 07:13 White Blood Count 14.31 K/uL Red Blood Count 4.04 M/uL Hemoglobin 12.8 g/dL Hematocrit 36.8 % Mean Corpuscular Volume 91.1 fL Mean Corpuscular Hemoglobin 31.7 pg Mean Corpuscular Hemoglobin Concent 34.8 g/dl Platelet Count 278 K/uL Mean Platelet Volume 9.8 fL Neutrophils (%) (Auto) 75.5 % Lymphocytes (%) (Auto) 14.0 % Monocytes (%) (Auto) 9.5 % Eosinophils (%) (Auto) 0.4 % Basophils (%) (Auto) 0.3 % Neutrophils # (Auto) 10.79 K/uL Lymphocytes # (Auto) 2.00 K/uL Monocytes # (Auto) 1.36 K/uL Eosinophils # (Auto) 0.06 K/uL Basophils # (Auto) 0.05 K/uL RDW Standard Deviation 48.3 fL RDW Coefficient of Variation 14.4 % Immature Granulocyte % (Auto) 0.3 % Immature Granulocyte # (Auto) 0.05 K/uL Red Blood Cell Morphology Unremarkable Sodium Level 132 mmol/L Potassium Level 6.4 mmol/L Chloride Level 103 mmol/L Carbon Dioxide Level 20 mmol/L Anion Gap 9.0 mmol/L 18.0 mmol/L Blood Urea Nitrogen 41 mg/dl Creatinine 2.48 mg/dl Est Creatinine Clear Calc Drug Dose 25.2 ml/min Estimated GFR () 24.0 Estimated GFR (Non- 20.7 BUN/Creatinine Ratio 16.4 Random Glucose 396 mg/dl Osmolality 315 mOsm/kg Calcium Level 9.4 mg/dl Magnesium Level 1.9 mg/dl Total Bilirubin 0.7 mg/dl Aspartate Amino Transf (AST/SGOT) 17 U/L Alanine Aminotransferase (ALT/SGPT) 26 U/L Alkaline Phosphatase 135 U/L Total Creatine Kinase 97 U/L Troponin I < 0.015 ng/ml Total Protein 7.8 gm/dl Albumin 3.5 gm/dl Globulin 4.3 gm/dl Albumin/Globulin Ratio 0.8 Beta-Hydroxybutyric Acid 5.92 mg/dL Thyroid Stimulating Hormone (TSH) 1.220 uIu/ml Salicylates Level < 1.7 mg/dl Acetaminophen Level < 2 ug/ml Ethyl Alcohol mg/dL < 3.0 mg/dl Bedside Hemoglobin 11.2 g/dl Bedside Hematocrit 33 % Bedside Sodium 137 mEq/L Bedside Potassium 6.2 mEq/L Bedside Chloride 106 mEq/L Bedside Total CO2 20 mEq/l Bedside Blood Urea Nitrogen 40 mg/dl Bedside Creatinine 2.3 mg/dl Bedside Glucose (other) 334 mg/dl Bedside Ionized Calcium (Hannah) 1.20 mmol/l Urine Color YELLOW Urine Appearance CLEAR Urine pH 6.5 Urine Specific [place] 1.012 Urine Protein NEG Urine Glucose (UA) 2+ Urine Ketones NEG Urine Occult Blood NEG Urine Nitrite NEG Urine Bilirubin NEG Urine Urobilinogen NEG Urine Leukocyte Esterase SMALL Urine WBC (Auto) 10-30 /hpf Urine RBC (Auto) 0-4 /hpf Urine Hyaline Casts (Auto) 1-5 /lpf Urine Epithelial Cells (Auto) 20-30 /lpf Urine Bacteria (Auto) NEG Urine Opiates Screen NEG Urine Methadone, Qualitative NEG Urine Barbiturates NEG Urine Phencyclidine (PCP) Level NEG Ur Amphetamine/Methamphetamine NEG MDMA (Ecstasy) Screen NEG Urine Benzodiazepines Screen NEG Urine Cocaine Metabolite NEG Urine Marijuana (THC) NEG Test 07/08/17 09:13 07/08/17 09:55 07/08/17 10:44 Bedside Glucose 100 mg/dl 136 mg/dl Mental Examination During interview pt is: uncooperative Eye contact is: poor (keeps eyes closed) Speech: other (angry) Affect: angry Mood is: angry Thought process: goal directed Thought content: cognitive distortions Suicidal thought are: denied Homicidal thoughts are: denied Hallucinations: denies auditory, denies visual Intelligence estimated to be: average Insight: limited Judgement: limited Impression / Recommendations Impression 57 yo women well known to medical and psychiatric services from multiple recent inpatients stays with psychiatric consultation. Her picture today is much the same as the last 3 consults done by my partners. She is uncooperative with medical treatment and psychiatric involvement. Today she is denying SI/HI/aud/ vis hallucinations and wants to go home. The 302 statement talks about her suicidal statements, which she now denies. Her severe borderline personality disorder makes it difficult to provide psychiatric treatment as she is unwilling to participate (long standing problem). We are not likely to be able to address her problems with medications and we can only mitigate risk factors if she cooperates with treatment. Kecia has been know to make provocative statements in the past to get peoples' attentions, and this will likely not change until she is willing to be honest with her emotions. I do not recommend completing the 302, nor do I think that we have anything to gain to admit her psychiatrically. I do suggest that social service ensures that she has ample in home supports upon discharge. Recommendations (1) Borderline personality disorder 07/08 - Continue to encourage Kecia to participate in recommended medical treatments - If the patient is willing to participate in a psychiatric interview/ treatment, we are happy to be reconsulted - I do not support pursuing a 302 or inpatient mental health treatment. Dr. Rosa Herndon has personally been involved in the review of this case and development of these recommendations.
[2017-07-08 13:57] LABS: CALCIUM 8.6 mg/dl (8.5-10.1); CREATININE 1.69 mg/dl (0.60-1.20); POTASSIUM 4.3 mmol/L (3.5-5.1)
[2017-07-08] MEDS ORDERED: FAMOTIDINE 20 MG TAB PO SCH (14:00)
[2017-07-08] MEDS ORDERED: GABAPENTIN 400 MG CAP PO SCH (14:00)
[2017-07-08 14:50] VITALS: Ht 165.1 cm; Wt 78.0 kg
--- NOTE | 2017-07-08 15:40 | Discharge Summary ---
Discharge Summary Date of Service Jul 08, 2017. Discharge Summary Admission Date: Jul 08, 2017 at 07:41 Discharge Date: Jul 08, 2017 Discharge Disposition: Home Principal Diagnosis: Pt left ama Problems/Secondary Diagnoses: (1) Anxiety Status: Chronic (2) Attention deficit hyperactivity disorder Status: Chronic Immunizations: Have You Had Influenza Vaccine: Yes History of Tetanus Vaccine?: Unknown History of Pneumococcal: Yes Pneumococcal Date: Jun 23, 2001 History of Hepatitis B Vaccine: Unknown Hospital Course 57-year-old female who was brought in by police after through 2 warrant found to be hypothermic from exposure hyperkalemic with acute renal failure she is a non-anion gap acidosis also Patient was rewarmed in the ER with a bear hugger she will be given warmed IV fluids to treat her hypothermia This patient began refusing treatment when she arrived to the floor, psychiatric evaluation was undertaken I personally spoke with Alexia Obando who states that the patient is not currently inactive 302 nor does she feel she is an active danger to herself and she feels the patient is manipulating the situation by refusing care. I was then called by the nurses as the patient stated that she wanted to leave. I asked if I could speak with the patient to discuss the possible discharge arrangements and she refused to speak to me because I was a " CAT Killer" I informed the patient that if she leaves she could or injure her transplanted kidney she still refused to speak to me. I then informed the nurse to have the AMA papers filled out the patient did such. She did have transportation home was given a taxi voucher previously this hospital stay Hyperkalemia, acute on chronic renal failure, is unclear whether the patient is taking care rejection medications in addition she is prescribed an HEIDI inhibitor I did recommend that she continue her cyclosporine and CellCept she was administered Kayexalate 30 g in the ER Regarding her known coronary disease that she is previously had coronary stent will maintain her aspirin isosorbide and carvedilol she has no complaints of active chest pain at this time Uncontrolled diabetes with glucoses in 300s the patient's not clear about whether she is taking her diabetic medications at home will hold her Victoza continue Lantus with insulin sliding scale For her depression and anxiety patient typically takes Cymbalta this will be continued we will hold her Restoril have a psychiatric consultation Regarding her musculoskeletal pains baclofen will be held continue her Neurontin and this also may be helpful with mood stabilization DVT prevention is heparin subcu Total Time Spent: Greater than 30 minutes This includes examination of the patient, discharge planning, medication reconciliation, and communication with other providers. Discharge Instructions Please refer to the electronic Patient Visit Report (Discharge Instructions) for additional information.
[2017-07-08] MEDS ORDERED: HEPARIN SOD 5000 UNIT/0.5 ML CARP SQ SCH (21:00)
== END 2017-07-08 15:15 | disposition left against medical advice (07) | DRG 683 ==
LOC: EDBD 05:11 → C.EDA 05:13 → C.2T 07:41 → ENRESERV 08:31
PROVIDERS: ADMIT Internal Medicine; ATTEND Internal Medicine
DX: N17.9 Acute kidney failure, unspecified (principal); E87.2 Acidosis; Z94.0 Kidney transplant status; T68.XXXA Hypothermia, initial encounter; M81.0 Age-related osteoporosis without current pathological fracture; F60.3 Borderline personality disorder; F90.9 Attention-deficit hyperactivity disorder, unspecified type; F41.8 Other specified anxiety disorders; E11.65 Type 2 diabetes mellitus with hyperglycemia; I25.10 Atherosclerotic heart disease of native coronary artery without angina pectoris; I12.9 Hypertensive chronic kidney disease with stage 1 through stage 4 chronic kidney disease, or unspecified chronic kidney disease; I67.9 Cerebrovascular disease, unspecified; K21.9 Gastro-esophageal reflux disease without esophagitis; E11.21 Type 2 diabetes mellitus with diabetic nephropathy; N18.3 Chronic kidney disease, stage 3 (moderate); Z16.35 Resistance to multiple antimicrobial drugs; M32.9 Systemic lupus erythematosus, unspecified; R94.31 Abnormal electrocardiogram [ECG] [EKG]; Z95.818 Presence of other cardiac implants and grafts; E87.5 Hyperkalemia; Y92.410 Unspecified street and highway as the place of occurrence of the external cause; Z79.82 Long term (current) use of aspirin; Z88.0 Allergy status to penicillin; Z88.2 Allergy status to sulfonamides; Z88.8 Allergy status to other drugs, medicaments and biological substances

== ENCOUNTER 2017-07-10 11:05 | Inpatient (IN) | payer OTHER ==
[~2017-07-10] VITALS: Ht 162.6 cm; Wt 78.2 kg
[2017-07-10] MEDS ORDERED: DICL1GEL12 EXT (12:02)
--- NOTE | 2017-07-10 12:56 | EMERGENCY ROOM VISIT NOTE ---
History Report prepared by Savi: Simeon Nice Under the Supervision of: Dr. Saad Thomas M.D. First contact with patient: 12:32 Chief Complaint: WEAKNESS Stated Complaint: KIDNEY FAILURE, WEAKNESS Nursing Triage Summary: Pt states she went to see crm developer yesterday and they recommended she come to an ER. They wanted to call an ambulance but patient refused because they would take her to [facility]. Pt called a friend and they were able to bring her this AM. Pt took her antirejection med this AM with a couple sips of water this AM. Pt reports not being able to have anything to eat since last night. Pt states she was unable to "get up" today. Pt decided to continue to rest and managed to get up around 9 am and went to the bathroom and to get toothbrush and toothpaste and out it in a bag. Pt then went back out to the couch and laid down, "then I was finally able to get up and take all the medicine in my box of medicine." "I of course took my antirejection drug because it was laying on the stand. I rested and then my friend came. I was able to make it out the car." Pt reports the doctor wanted her to come to ED because " I went to his office and I barely made it there. Well, I didnt drive, I took the [facility] bus. I was barely able to get back off the bus. When I got off, the city route driver helped me get into the house. I made it into the couch, thats all the further I made it. Thankfully, I made it to the couch. All night, I kept thinking I needed to get up and get something to drink and had to pee. I had a depends on and it was totally soaked. And then I finally got the strength to get up this AM, then I put on a new pair of depends and pants because I did the laundry the other day. I didnt make it any further than the living room which is abel because I was able to grab a pair of pants. I told the doctor that I had been in the hospital and he wasnt able to get any of my test results." History of Present Illness The patient is a 57 year old female who presents to the Emergency Room with complaints of persistent generalized weakness for the past 4 days. The patient states that yesterday she went to her crm developer yesterday, and they wanted to call an ambulance for her, though she did not want to go to the hospital. She reports that afterwards she went home and laid down, and she states that when she went to get up to go the bathroom her legs would not move. The patient reports that today she was resting and was able to go to the bathroom and take her medications, though she was unable to get anything to eat. The patient denies any cough, congestion, fever, and chills, though she notes that she is always cold. She states that her hands are feeling numb as well, and she is having some abdominal pain that is coming and going. The patient reports that she has been having diarrhea for the past weeks, though her bowel movement was normal this morning. She has a history of a kidney transplant. The patient was recently admitted to the hospital, though she left to go home and take care of her sick mule. Source of History: patient Onset: 4 days ago Position: other (generalized) Quality: other (weakness) Timing: other (persistent) Associated Symptoms: + abdominal pain, + diarrhea, + numbness (in her hands) , No fevers, No chills, No cough Review of Systems See HPI for pertinent positives and negatives. A total of ten systems were reviewed and were otherwise negative. Past Medical & Surgical Medical Problems: (1) 302, involuntary commitment (2) Anxiety (3) Attention deficit hyperactivity disorder (4) Benign hypertension (5) Borderline personality disorder (6) Cerebrovascular disease (7) Coronary artery disease (8) Diabetes mellitus type 2 (9) Elevated troponin (10) Gastroesophageal reflux disease (11) Generalized weakness (12) Hyperparathyroidism (13) Kidney transplant status, cadaveric (14) Leukocytosis (15) Major depression, recurrent (16) MDRO (multiple drug resistant organisms) resistance (17) Osteoporosis (18) Sepsis (19) Sleep apnea (20) Systemic lupus erythematosus (21) Urinary tract infection due to extended-spectrum beta lactamase (ESBL) producing Escherichia coli Surgical Problems: (1) Status post coronary artery stent placement (2) Status post kidney transplant (3) Status post parathyroidectomy Family History FH: dementia MOTHER FH: diabetes mellitus SISTER GRANDMOTHER FH: heart disease FATHER MOTHER FH: lung cancer FATHER FH: rheumatoid arthritis SISTER FHx: heart disease Social History Smoking Status: Never Smoker Alcohol Use: none Drug Use: none Marital Status: single Housing Status: lives alone Occupation Status: disabled Current/Historical Medications Scheduled Aspirin (Aspirin), 81 MG PO DAILY Baclofen (Lioresal), 10 MG PO TID Cyclosporine (Neoral), 50 MG PO BID Dexlansoprazole (Dexilant), 30 MG PO DAILY Diclofenac Sodium (Topical) (Voltaren 1% Top Gel), 1 APPLN EXT UD Duloxetine HCl (Cymbalta), 30 MG PO DAILY Ergocalciferol (Vitamin D 36162 Unit), 1 CAP PO WK Famotidine (Pepcid), 20 MG PO TID Gabapentin (Neurontin), 400 MG PO TID Insulin Glargine (Lantus Solostar), 20 UNITS SC QAM Isosorbide Mononitrate Ext Rel (Imdur Ext Rel), 60 MG PO QAM Liraglutide (Victoza), 1.8 MG SQ DAILYBD Lisinopril (Zestril), 5 MG PO DAILY Multivitamin (Multivitamin), 1 TAB PO DAILY Mycophenolate Mofetil (Cellcept), 250 MG PO BID Ocuvite Preservision (Ocuvite Preservision), 1 TAB PO BID Rosuvastatin Calcium (Crestor), 1 TAB PO DAILY Temazepam (Restoril), 15 MG PO HS Scheduled PRN Nitroglycerin (Nitrostat), 1 TAB SL UD PRN for Chest Pain Allergies Coded Allergies: Penicillins (Verified Allergy, Mild, ITCHY, ANXIETY, 07/10/17) Loperamide (Verified Allergy, Unknown, 07/10/17) Vancomycin (Verified Allergy, Unknown, 07/10/17) Ziprasidone (Verified Allergy, Unknown, itching, 07/10/17) Physical Exam Vital Signs Date Time Temp Pulse Resp B/P (MAP) Pulse Ox O2 Delivery O2 Flow Rate FiO2 07/10/17 15:34 36.8 74 22 128/71 Room Air 07/10/17 14:53 75 20 133/70 96 Room Air 07/10/17 13:30 74 16 118/75 96 Room Air 07/10/17 12:41 76 07/10/17 12:35 96 Room Air 07/10/17 12:35 77 16 137/75 96 Room Air 07/10/17 11:22 37.1 85 18 151/81 97 Room Air Physical Exam GENERAL: Awake, alert, fatigued, uncomfortable-appearing, in no distress HENT: Normocephalic, atraumatic. Oropharynx with dry mucous membranes and otherwise unremarkable. EYES: Normal conjunctiva. Sclera non-icteric. NECK: Supple. No nuchal rigidity. FROM. No JVD. RESPIRATORY: Clear to auscultation. CARDIAC: Regular rate, normal rhythm. Extremities warm and well perfused. Pulses equal. ABDOMEN: Soft, non-distended. Mild LLQ ttp. No rebound or guarding. No masses. RECTAL: Deferred. MUSCULOSKELETAL: Chest examination reveals no tenderness. The back is symmetrical on inspection without obvious abnormality. There is no CVA tenderness to palpation. No joint edema. LOWER EXTREMITIES: 1+ pitting lower extremity edema. Calves are equal size bilaterally and non-tender. No discoloration. NEURO: Normal sensorium. No sensory or motor deficits noted. SKIN: No rash or jaundice noted. Medical Decision & Procedures ER Provider Diagnostic Interpretation: Radiology results as stated below per my review and radiologist interpretation: CHEST ONE VIEW PORTABLE CLINICAL HISTORY: ABDOMINAL PAIN/GI pain COMPARISON STUDY: 07/08/2017 FINDINGS: The bones soft tissues and hemidiaphragms are normal. The cardiomediastinal silhouette is normal. The lungs are clear. The pulmonary vasculature is normal. IMPRESSION: Negative chest. The above report was generated using voice recognition software. It may contain grammatical, syntax or spelling errors. Electronically signed by: Clif Motley M.D. 07/10/2017 1:03 PM Dictated Date/Time: 07/10/2017 1:02 PM ABD/PELVIS NO IV OR ORAL CONT CT DOSE: 960.43 mGy.cm HISTORY: Flank pain LLQ pain TECHNIQUE: Multiaxial CT images of the abdomen and pelvis were performed without contrast. A dose lowering technique was utilized adhering to the principles of ALARA. COMPARISON STUDY: 12/03/2016 FINDINGS: Minimal dependent bibasilar atelectasis. Configuration of liver and spleen are unremarkable. Pancreas demonstrates fatty replacement. The adrenal glands are normal. Both kidneys are atrophic. There is a 4 mm nonobstructing calculus proximal right ureter which has been present on prior studies is not considered a nonacute finding. Bowel pattern is nonobstructive. There is a left renal pelvic transplant. There is subtle chronic fullness of the left renal pelvis. There is a trace amount of perirenal infiltrative change raising the possibility of mild pyelonephritis. Correlation with urinalysis is suggested. Bladder is midline. It is relatively collapsed. It contains no calcifications. The bowel pattern throughout is nonobstructive. IMPRESSION: 1. Left pelvic renal transplant demonstrating a very subtle increase in density of the perinephric fat. 2. This may be a secondary indication of an underlying component of pyelonephritis. Correlation with urinalysis is suggested. 3. Multiple additional chronic findings unaltered from the prior studies. The above report was generated using voice recognition software. It may contain grammatical, syntax or spelling errors. Electronically signed by: Clif Motley M.D. 07/10/2017 2:38 PM Dictated Date/Time: 07/10/2017 2:30 PM Laboratory Results 07/10/17 12:30 Red Blood Count 3.53, Mean Corpuscular Volume 90.9, Mean Corpuscular Hemoglobin 30.9, Mean Corpuscular Hemoglobin Concent 34.0, Mean Platelet Volume 10.0, Neutrophils (%) (Auto) 62.5, Lymphocytes (%) (Auto) 18.2, Monocytes (%) (Auto) 18.8, Eosinophils (%) (Auto) 0.1, Basophils (%) (Auto) 0.2, Neutrophils # (Auto ) 8.52, Lymphocytes # (Auto) 2.49, Monocytes # (Auto) 2.56, Eosinophils # (Auto ) 0.02, Basophils # (Auto) 0.03 07/10/17 12:30 Test 07/10/17 12:30 07/10/17 13:30 07/10/17 13:53 07/10/17 14:05 White Blood Count 13.65 K/uL (4.8-10.8) Red Blood Count 3.53 M/uL (4.2-5.4) Hemoglobin 10.9 g/dL (12.0-16.0) Hematocrit 32.1 % (37-47) Mean Corpuscular Volume 90.9 fL (80-100) Mean Corpuscular Hemoglobin 30.9 pg (25-34) Mean Corpuscular Hemoglobin Concent 34.0 g/dl (32-36) Platelet Count 188 K/uL (130-400) Mean Platelet Volume 10.0 fL (7.4-10.4) Neutrophils (%) (Auto) 62.5 % Lymphocytes (%) (Auto) 18.2 % Monocytes (%) (Auto) 18.8 % Eosinophils (%) (Auto) 0.1 % Basophils (%) (Auto) 0.2 % Neutrophils # (Auto) 8.52 K/uL (1.4-6.5) Lymphocytes # (Auto) 2.49 K/uL (1.2-3.4) Monocytes # (Auto) 2.56 K/uL (0.11-0.59) Eosinophils # (Auto) 0.02 K/uL (0-0.5) Basophils # (Auto) 0.03 K/uL (0-0.2) RDW Standard Deviation 49.6 fL (36.4-46.3) RDW Coefficient of Variation 14.8 % (11.5-14.5) Immature Granulocyte % (Auto) 0.2 % Immature Granulocyte # (Auto) 0.03 K/uL (0.00-0.02) Anion Gap 11.0 mmol/L (3-11) Est Creatinine Clear Calc Drug Dose 34.3 ml/min Estimated GFR () 34.2 Estimated GFR (Non- 29.5 BUN/Creatinine Ratio 18.6 (10-20) Calcium Level 8.4 mg/dl (8.5-10.1) Phosphorus Level 3.0 mg/dl (2.5-4.9) Magnesium Level 1.8 mg/dl (1.8-2.4) Total Bilirubin 0.8 mg/dl (0.2-1) Direct Bilirubin 0.3 mg/dl (0-0.2) Aspartate Amino Transf (AST/SGOT) 13 U/L (15-37) Alanine Aminotransferase (ALT/SGPT) 21 U/L (12-78) Alkaline Phosphatase 110 U/L (45-117) Pro-B-Type Natriuretic Peptide 84951 pg/ml (0-900) Total Protein 7.1 gm/dl (6.4-8.2) Albumin 3.0 gm/dl (3.4-5.0) Lipase 181 U/L (73-393) Influenza Type A (RT-PCR) Neg for Influ A (NEG) Influenza Type B (RT-PCR) Neg for Influ B (NEG) Venous Blood pH 7.39 (7.36-7.41) Venous Blood Partial Pressure CO2 36 mmHg (38.0-50.0) Venous Blood Partial Pressure O2 33 mmHg Venous Blood HCO3 21 mmol/L Venous Blood Oxygen Saturation < 60.0 % Venous Blood Base Excess -3.3 mEq/L Lactic Acid Level 1.4 mmol/L (0.4-2.0) Urine Color YELLOW Urine Appearance CLEAR (CLEAR) Urine pH 5.0 (4.5-7.5) Urine Specific [place] 1.022 (1.000-1.030) Urine Protein NEG (NEG) Urine Glucose (UA) 2+ (NEG) Urine Ketones TRACE (NEG) Urine Occult Blood NEG (NEG) Urine Nitrite NEG (NEG) Urine Bilirubin NEG (NEG) Urine Urobilinogen NEG (NEG) Urine Leukocyte Esterase SMALL (NEG) Urine WBC (Auto) >30 /hpf (0-5) Urine RBC (Auto) 0-4 /hpf (0-4) Urine Hyaline Casts (Auto) 1-5 /lpf (0-5) Urine Epithelial Cells (Auto) 5-10 /lpf (0-5) Urine Bacteria (Auto) 1+ (NEG) Urine Yeast (Auto) BUD W/ HYPHAE (NONE PRSENT) Laboratory results reviewed by me Medications Administered Medications (Trade) Dose Ordered Sig/[place]uy[place] Route Start Time Stop Time Status Last Admin Dose Admin Aspirin (Aspirin Chew) 324 mg NOW STAT PO 07/10/17 14:36 07/10/17 14:38 DC 07/10/17 14:52 324 MG Cefepime HCl 1000 mg/Dextrose 111 ml @ 200 mls/hr NOW STAT IV 07/10/17 15:03 07/10/17 15:36 DC 07/10/17 15:32 200 MLS/HR Sodium Chloride 500 ml @ 125 mls/hr Q4H STAT IV 07/10/17 15:03 07/10/17 17:15 DC 07/10/17 15:33 125 MLS/HR ECG Per My Interpretation Indication: weakness Rate (beats per minute): 75 Rhythm: sinus rhythm Findings: 1st degree AV block, other (LVH, widened QRS at 120, ST flattening laterally, no gross ischemia) ED Course 1232: The patient was evaluated in room B6. A complete history and physical exam was performed. 1549: I discussed the patient with Dr. Shanae MATHIS Hospitalist - He will evaluate the patient for further treatment. Medical Decision I reviewed the patient's past medical history, medications, and the nursing notes as described above. Differential diagnosis: Etiologies such as metabolic, infection, hypo/hyperglycemia, electrolyte abnormalities, cardiac sources, intracerebral event, toxicologic, neurologic, as well as others were entertained. The patient is a 57 y/o woman with a pmhx of borderline personality disorder, ESRD s/p remote renal transplant who presents to the emergency department with worsening generalized weakness/fatigue after leaving AMA from inpatient admission for hypothermia, renal failure with nongap acidosis per HPI. On arrival the patient is fatigued appearing but in NAD, AFVSS. Mild LLQ ttp. WBC 13, UA+ for infection, CT abd/pel c/w pyelonephritis. Cr 1.8 with bicarb 19. Otherwise pH wnl. Troponin elevated to 0.25 and BNP 12K down from 21K in april in the setting of CHF with EF 30-35%. EKG without acute ischemia. CXR without overload or PNA. Considering immunosuppressive therapy patient treated with Cefepime. Case d/w DEL Bradley hospitalist who will evaluate the patient for admission. Medication Reconcilliation Current Medication List: was personally reviewed by me Blood Pressure Screening Patient's blood pressure: Elevated blood pressure Monitored by the hospitalist Consults Time Called: 1504 Consulting Physician: Dr. Shanae MATHIS Hospitalist Returned Call: [phone] I discussed the patient with Dr. Shanae MATHIS Hospitalist - He will evaluate the patient for further treatment. Impression Primary Impression: Pyelonephritis Additional Impressions: Elevated troponin CHF (congestive heart failure) Scribe Attestation The scribe's documentation has been prepared under my direction and personally reviewed by me in its entirety. I confirm that the note above accurately reflects all work, treatment, procedures, and medical decision making performed by me. Departure Information Dispostion Being Evaluated By Hospitalist Referrals Mikala Vásquez (PCP) Patient Instructions My [facility] Problem Qualifiers
--- NOTE | 2017-07-10 13:04 | DIAGNOSTIC IMAGING REPORT ---
CHEST ONE VIEW PORTABLE CLINICAL HISTORY: ABDOMINAL PAIN/GI pain COMPARISON STUDY: 07/08/2017 FINDINGS: The bones soft tissues and hemidiaphragms are normal. The cardiomediastinal silhouette is normal. The lungs are clear. The pulmonary vasculature is normal. IMPRESSION: Negative chest. The above report was generated using voice recognition software. It may contain grammatical, syntax or spelling errors. Electronically signed by: Clif Motley M.D. 07/10/2017 1:03 PM Dictated Date/Time: 07/10/2017 1:02 PM
[2017-07-10 14:09] LABS: BASO % 0.2 %; BASO ABS # 0.03 K/uL (0-0.2); EOS % 0.1 %; EOS ABS # 0.02 K/uL (0-0.5); HEMATOCRIT 32.1 % (37-47); HEMOGLOBIN 10.9 g/dL (12.0-16.0); IG# 0.03 K/uL (0.00-0.02); LYMPH % 18.2 %; LYMPH ABS # 2.49 K/uL (1.2-3.4); MEAN CELL VOLUME 90.9 fL (80-100); MEAN CORPUSCULAR HEMOGLOBIN 30.9 pg (25-34); MONO % 18.8 %; MONO ABS # 2.56 K/uL (0.11-0.59); NEUT % 62.5 %; NEUT ABS # 8.52 K/uL (1.4-6.5); PLATELET COUNT 188 K/uL (130-400); RED CELL DISTRIBUTION WIDTH CV 14.8 % (11.5-14.5); RED CELL DISTRIBUTION WIDTH SD 49.6 fL (36.4-46.3); WHITE BLOOD COUNT 13.65 K/uL (4.8-10.8)
[2017-07-10 14:13] LABS: CALCIUM 8.4 mg/dl (8.5-10.1); CREATININE 1.85 mg/dl (0.60-1.20); POTASSIUM 3.7 mmol/L (3.5-5.1)
[2017-07-10 14:24] LABS: TOTAL PROTEIN 7.1 gm/dl (6.4-8.2)
[2017-07-10] MEDS ORDERED: ASPIRIN 81 MG CHEW PO STA (14:36)
--- NOTE | 2017-07-10 14:39 | DIAGNOSTIC IMAGING REPORT ---
ABD/PELVIS NO IV OR ORAL CONT CT DOSE: 960.43 mGy.cm HISTORY: Flank pain LLQ pain TECHNIQUE: Multiaxial CT images of the abdomen and pelvis were performed without contrast. A dose lowering technique was utilized adhering to the principles of ALARA. COMPARISON STUDY: 12/03/2016 FINDINGS: Minimal dependent bibasilar atelectasis. Configuration of liver and spleen are unremarkable. Pancreas demonstrates fatty replacement. The adrenal glands are normal. Both kidneys are atrophic. There is a 4 mm nonobstructing calculus proximal right ureter which has been present on prior studies is not considered a nonacute finding. Bowel pattern is nonobstructive. There is a left renal pelvic transplant. There is subtle chronic fullness of the left renal pelvis. There is a trace amount of perirenal infiltrative change raising the possibility of mild pyelonephritis. Correlation with urinalysis is suggested. Bladder is midline. It is relatively collapsed. It contains no calcifications. The bowel pattern throughout is nonobstructive. IMPRESSION: 1. Left pelvic renal transplant demonstrating a very subtle increase in density of the perinephric fat. 2. This may be a secondary indication of an underlying component of pyelonephritis. Correlation with urinalysis is suggested. 3. Multiple additional chronic findings unaltered from the prior studies. The above report was generated using voice recognition software. It may contain grammatical, syntax or spelling errors. Electronically signed by: Clif Motley M.D. 07/10/2017 2:38 PM Dictated Date/Time: 07/10/2017 2:30 PM
[2017-07-10] MEDS ORDERED: CEFEPIME IV 1,000 MG in DEXTROSE 5% 100ML 100 ML IV STA (15:03)
[2017-07-10] MEDS ORDERED: SODIUM CHLORIDE 0.9% 500ML 500 ML IV STA (15:03)
[2017-07-10 15:12] LABS: INFLUENZA A PCR Neg for Influ A (NEG); INFLUENZA B PCR Neg for Influ B (NEG)
[2017-07-10] MEDS ORDERED: POLYETHYLENE (MIRALAX) 17 GM PACK PO PRN (16:15)
[2017-07-10] MEDS ORDERED: ONDANSETRON INJ 2 MG/ML 2 ML VIAL IV PRN (16:15)
[2017-07-10] MEDS ORDERED: MAGNESIUM HYDROXIDE SUSP 30 ML UDC PO PRN (16:15)
[2017-07-10] MEDS ORDERED: ALUMINUM/MAGNESIUM/SIMETH (MAALOX MAX) 30 ML UDC PO PRN (16:15)
[2017-07-10] MEDS ORDERED: ERTAPENEM IV 0.5 GM in SODIUM CHLOR 0.9% AD-VAN 50ML 50 ML IV SCH (16:30)
[2017-07-10] MEDS ORDERED: ERTAPENEM CONSULT ACTIVE PRN (16:35)
--- NOTE | 2017-07-10 17:11 | History and Physical ---
History & Physical Date & Time of Service: Jul 10, 2017 at 16:27 Chief Complaint: Kidney Failure, Weakness Primary Care Physician: Mikala Vásquez History of Present Illness Source: patient Ms. Iverson is a 57 y/o female with PMHx of Systolic CHF, CAD with [place], CKD Stage III with L Renal Transplant, TAMARA, SLE, Schizoaffective Disorder, and Borderline Personality who presents to the ED c/o generalized weakness x 2 weeks. Patient is calm and cooperative but mostly talking with eyes closed with minimal to no eye contact. She states she has dealt with generalized weakness for about 2 weeks however the last 2-4 days have been the worst. She states she went to see her Motion Picture Camera Operator yesterday and barely good walk in the office and was recommended to come to the ED but she ultimately refused. She returned home and laid on her couch most of the day and urinated on herself because she could not get to the bathroom. She states that she felt even more weak today and wasn't able to get up until 9 AM. She was able to take her morning medications but reports not having the energy to eat last night or this morning. She waited for her friend to come to bring her to the ED. She reports multiple falls over the past several days that are largely her falling to her knees from her legs giving out but denies hitting her head or LOC. She also reports associated intermittent abdominal pain diffusely and intermittent diarrhea. However states she had a soft formed BM this AM. Surprisingly labs are rather unremarkable. She does have a mild leukocytosis but that is trending down from labs on 07/08. Her kidney function is at baseline. Electrolytes acceptable. BNP is elevated but appears there may be an element of chronicity to this as she does not appear to be in an exacerbation. UA with 1+ bacteria. However troponin is elevated 0.257 which is not normal for her. She denies any chest pain but states she has hand numbness. Reports when she had her [place] in the past her whole arms were numb and she had pain in her teeth. Past Medical/Surgical History Medical Problems: (1) 302, involuntary commitment (2) Acute diarrhea (3) Acute electrocardiogram changes (4) Acute kidney injury (5) Acute psychosis (6) Acute renal failure (7) Altered mental status (8) Anxiety (9) Attention deficit hyperactivity disorder (10) Back pain (11) Benign hypertension (12) Borderline personality disorder (13) Cerebrovascular disease (14) Chest pain (15) Chronic pain (16) Chronic pain (17) Coronary artery disease (18) Dehydration (19) Dehydration (20) Diabetes mellitus type 2 (21) Diarrhea (22) Elevated troponin (23) Gastroesophageal reflux disease (24) Generalized weakness (25) Hyperkalemia (26) Hyperparathyroidism (27) Hypothermia (28) Immunosuppression (29) Influenza A (30) Joint pain (31) Joint pain (32) Kidney transplant status, cadaveric (33) Leukocytosis (34) Low back pain (35) Lower abdominal pain (36) Major depression, recurrent (37) MDRO (multiple drug resistant organisms) resistance (38) Medication refill (39) Medication refill (40) Mood disorder (41) Nausea (42) Nausea (43) Nausea & vomiting (44) Odontalgia (45) Osteoporosis (46) Patient refused evaluation (47) Refusal of care by patient (48) Renal insufficiency (49) Sepsis (50) Sepsis (51) Sleep apnea (52) Systemic lupus erythematosus (53) Thrombocytopenia (54) Urinary tract infection (55) Urinary tract infection due to extended-spectrum beta lactamase (ESBL) producing Escherichia coli (56) UTI (urinary tract infection) (57) UTI (urinary tract infection) (58) UTI (urinary tract infection) (59) UTI (urinary tract infection) (60) Vomiting (61) Weakness Surgical Problems: (1) Status post coronary artery stent placement (2) Status post kidney transplant (3) Status post parathyroidectomy Family History FH: dementia MOTHER FH: diabetes mellitus SISTER GRANDMOTHER FH: heart disease FATHER MOTHER FH: lung cancer FATHER FH: rheumatoid arthritis SISTER FHx: heart disease Social History Smoking Status: Never Smoker Smokeless Tobacco Use: No Alcohol Use: none Drug Use: none Marital Status: single Housing status: lives alone Occupational Status: disabled Immunizations History of Influenza Vaccine: Yes History of Tetanus Vaccine?: Unknown History of Pneumococcal: Yes Pneumococcal Date: Jun 23, 2001 History of Hepatitis B Vaccine: Unknown Allergies Coded Allergies: Penicillins (Verified Allergy, Mild, ITCHY, ANXIETY, 07/10/17) Loperamide (Verified Allergy, Unknown, 07/10/17) Vancomycin (Verified Allergy, Unknown, 07/10/17) Ziprasidone (Verified Allergy, Unknown, itching, 07/10/17) Home Medications Scheduled Aspirin (Aspirin), 81 MG PO DAILY Baclofen (Lioresal), 10 MG PO TID Cyclosporine (Neoral), 50 MG PO BID Dexlansoprazole (Dexilant), 30 MG PO DAILY Diclofenac Sodium (Topical) (Voltaren 1% Top Gel), 1 APPLN EXT UD Duloxetine HCl (Cymbalta), 30 MG PO DAILY Ergocalciferol (Vitamin D 01279 Unit), 1 CAP PO WK Famotidine (Pepcid), 20 MG PO TID Gabapentin (Neurontin), 400 MG PO TID Insulin Glargine (Lantus Solostar), 20 UNITS SC QAM Isosorbide Mononitrate Ext Rel (Imdur Ext Rel), 60 MG PO QAM Liraglutide (Victoza), 1.8 MG SQ DAILYBD Lisinopril (Zestril), 5 MG PO DAILY Multivitamin (Multivitamin), 1 TAB PO DAILY Mycophenolate Mofetil (Cellcept), 250 MG PO BID Ocuvite Preservision (Ocuvite Preservision), 1 TAB PO BID Rosuvastatin Calcium (Crestor), 1 TAB PO DAILY Temazepam (Restoril), 15 MG PO HS Scheduled PRN Nitroglycerin (Nitrostat), 1 TAB SL UD PRN for Chest Pain Review of Systems Constitutional: + chills, + weakness (generalized), + fatigue, No fever ENT: No nasal symptoms, No sore throat Respiratory: + shortness of breath, No cough Cardiovascular: No chest pain Abdomen: + pain, + diarrhea, No nausea, No vomiting, No constipation, No GI bleeding Musculoskeletal: + joint pain (b/l shoulders with L > R), No swelling, No calf pain Genitourinary - Female: No dysuria, No urinary frequency Neurologic: + numbness/tingling (b/l hands), + balance problems Hematologic / Lymphatic: No abnormal bleeding/bruising, No clotting problems Integumentary: No rash Physical Exam Vital Signs Date Time Temp Pulse Resp B/P (MAP) Pulse Ox O2 Delivery O2 Flow Rate FiO2 07/10/17 15:34 36.8 74 22 128/71 Room Air 07/10/17 14:53 75 20 133/70 96 Room Air 07/10/17 13:30 74 16 118/75 96 Room Air 07/10/17 12:41 76 07/10/17 12:35 96 Room Air 07/10/17 12:35 77 16 137/75 96 Room Air 07/10/17 11:22 37.1 85 18 151/81 97 Room Air General Appearance: WD/WN, no apparent distress, + pertinent finding (minimal eye contract; calm and cooperative) Head: normocephalic, atraumatic Eyes: sclerae normal ENT: hearing grossly normal Neck: supple, no JVD, trachea midline Respiratory/Chest: normal breath sounds, no respiratory distress, no accessory muscle use, + decreased breath sounds (bases b/l) Cardiovascular: regular rate, rhythm Abdomen/GI: normal bowel sounds, non tender, soft Extremities/Musculoskelatal: no calf tenderness, no pedal edema Neurologic/Psych: alert, oriented x 3, + pertinent finding (calm and cooperative; minimal eye contact; speech is slowed) Skin: normal color, warm/dry Diagnostics Laboratory Results Results Past 24 Hours Test 07/10/17 12:30 07/10/17 13:30 07/10/17 13:53 07/10/17 14:05 Range/Units White Blood Count 13.65 4.8-10.8 K/uL Red Blood Count 3.53 4.2-5.4 M/uL Hemoglobin 10.9 12.0-16.0 g/dL Hematocrit 32.1 37-47 % Mean Corpuscular Volume 90.9 80-100 fL Mean Corpuscular Hemoglobin 30.9 25-34 pg Mean Corpuscular Hemoglobin Concent 34.0 32-36 g/dl Platelet Count 188 130-400 K/uL Mean Platelet Volume 10.0 7.4-10.4 fL Neutrophils (%) (Auto) 62.5 % Lymphocytes (%) (Auto) 18.2 % Monocytes (%) (Auto) 18.8 % Eosinophils (%) (Auto) 0.1 % Basophils (%) (Auto) 0.2 % Neutrophils # (Auto) 8.52 1.4-6.5 K/uL Lymphocytes # (Auto) 2.49 1.2-3.4 K/uL Monocytes # (Auto) 2.56 0.11-0.59 K/uL Eosinophils # (Auto) 0.02 0-0.5 K/uL Basophils # (Auto) 0.03 0-0.2 K/uL RDW Standard Deviation 49.6 36.4-46.3 fL RDW Coefficient of Variation 14.8 11.5-14.5 % Immature Granulocyte % (Auto) 0.2 % Immature Granulocyte # (Auto) 0.03 0.00-0.02 K/uL Sodium Level 136 136-145 mmol/L Potassium Level 3.7 3.5-5.1 mmol/L Chloride Level 106 98-107 mmol/L Carbon Dioxide Level 19 21-32 mmol/L Anion Gap 11.0 3-11 mmol/L Blood Urea Nitrogen 35 7-18 mg/dl Creatinine 1.85 0.60-1.20 mg/dl Est Creatinine Clear Calc Drug Dose 34.3 ml/min Estimated GFR () 34.2 Estimated GFR (Non- 29.5 BUN/Creatinine Ratio 18.6 10-20 Random Glucose 210 70-99 mg/dl Calcium Level 8.4 8.5-10.1 mg/dl Phosphorus Level 3.0 2.5-4.9 mg/dl Magnesium Level 1.8 1.8-2.4 mg/dl Total Bilirubin 0.8 0.2-1 mg/dl Direct Bilirubin 0.3 0-0.2 mg/dl Aspartate Amino Transf (AST/SGOT) 13 15-37 U/L Alanine Aminotransferase (ALT/SGPT) 21 12-78 U/L Alkaline Phosphatase 110 45-117 U/L Troponin I 0.257 0-0.045 ng/ml Pro-B-Type Natriuretic Peptide 79233 0-900 pg/ml Total Protein 7.1 6.4-8.2 gm/dl Albumin 3.0 3.4-5.0 gm/dl Lipase 181 73-393 U/L Influenza Type A (RT-PCR) Neg for Influ A NEG Influenza Type B (RT-PCR) Neg for Influ B NEG Venous Blood pH 7.39 7.36-7.41 Venous Blood Partial Pressure CO2 36 38.0-50.0 mmHg Venous Blood Partial Pressure O2 33 mmHg Venous Blood HCO3 21 mmol/L Venous Blood Oxygen Saturation < 60.0 % Venous Blood Base Excess -3.3 mEq/L Lactic Acid Level 1.4 0.4-2.0 mmol/L Urine Color YELLOW Urine Appearance CLEAR CLEAR Urine pH 5.0 4.5-7.[address] [place] 1.022 1.000-1.030 Urine Protein NEG NEG Urine Glucose (UA) 2+ NEG Urine Ketones TRACE NEG Urine Occult Blood NEG NEG Urine Nitrite NEG NEG Urine Bilirubin NEG NEG Urine Urobilinogen NEG NEG Urine Leukocyte Esterase SMALL NEG Urine WBC (Auto) >30 0-5 /hpf Urine RBC (Auto) 0-4 0-4 /hpf Urine Hyaline Casts (Auto) 1-5 0-5 /lpf Urine Epithelial Cells (Auto) 5-10 0-5 /lpf Urine Bacteria (Auto) 1+ NEG Urine Yeast (Auto) BUD W/ HYPHAE NONE PRSENT Microbiology Results 07/10/17 Blood Culture, Received Pending 07/10/17 Blood Culture, Received Pending 07/10/17 Urine Culture, Received Pending Diagnostic Radiology ABD/PELVIS NO IV OR ORAL CONT FINDINGS: Minimal dependent bibasilar atelectasis. Configuration of liver and spleen are unremarkable. Pancreas demonstrates fatty replacement. The adrenal glands are normal. Both kidneys are atrophic. There is a 4 mm nonobstructing calculus proximal right ureter which has been present on prior studies is not considered a nonacute finding. Bowel pattern is nonobstructive. There is a left renal pelvic transplant. There is subtle chronic fullness of the left renal pelvis. There is a trace amount of perirenal infiltrative change raising the possibility of mild pyelonephritis. Correlation with urinalysis is suggested. Bladder is midline. It is relatively collapsed. It contains no calcifications. The bowel pattern throughout is nonobstructive. IMPRESSION: 1. Left pelvic renal transplant demonstrating a very subtle increase in density of the perinephric fat. 2. This may be a secondary indication of an underlying component of pyelonephritis. Correlation with urinalysis is suggested. 3. Multiple additional chronic findings unaltered from the prior studies. CHEST ONE VIEW PORTABLE FINDINGS: The bones soft tissues and hemidiaphragms are normal. The cardiomediastinal silhouette is normal. The lungs are clear. The pulmonary vasculature is normal. IMPRESSION: Negative chest. EKG Sinus rhythm with 1st degree A-V block Left ventricular hypertrophy with QRS widening Inferior infarct , age undetermined Marked ST abnormality, possible lateral subendocardial injury Abnormal ECG When compared with ECG of 08-JUL-2017 07:43, Inferior infarct is now Present Nonspecific T wave abnormality no longer evident in Inferior leads Inverted T waves have replaced nonspecific T wave abnormality in Lateral leads Confirmed by ELIZABETH GONZALEZ ([id number]) on 07/10/2017 4:27:49 PM Impression Assessment and Plan Ms. Iverson is a 57 y/o female with PMHx of Systolic CHF, T2DM, CAD with [place], CKD Stage III with L Renal Transplant, TAMARA, SLE, Schizoaffective Disorder, and Borderline Personality who presents to the ED c/o generalized weakness x 2 weeks. Possible Mild Pyelonephritis in L Transplant Kidney: - Ertapenem 500 mg IV daily for renal dosing - review of previous cultures suggests MDR e. coli but will await new cultures; yeast is present and could consider treatment but will monitor at this time - NSS at 75 mL/hr and monitor for volume overload with daily weights and I&Os - Cyclosporine 50 mg BID and Cellcept 250 mg BID Generalized Weakness: UTI vs ACS vs Rhabdo vs Somatic - Given reported frequent falls and possibly laying down because of weakness she could be in a little bit of rhabdo which could explain the troponin - will order a CK and trend Chronic Systolic CHF and HTN: - Most recent echo with EF 30-35% with multiple areas of akinesis/hypokinesis - Lisinopril 5 mg daily Elevated Troponin with H/O CAD with [place]: - Does not appear to have chronic elevated troponins and kidney function does not appear acutely worsened to explain this - will trend cardiac enzymes - ASA 81 mg daily, Imdur 60 mg daily, Crestor 5 mg daily T2DM: - Lantus 20 units SC daily and SSI; Hold Victoza CKD Stage III: STABLE - Continue to trend and avoid nephrotoxins when able Schizoaffective Disorder/Borderline Personality Disorder: - Cymbalta 30 mg daily DVT Prophylaxis: Heparin Code Status: DO NOT RESUSCITATE -- Patient is alert and oriented and could explain the meaning of this term and states she has signed papers to be a DNR. Appears to be in the right state of mind to make this decision Disposition: - PT/OT evaluations - Continue Abx and monitor Resident Physician Supervision Note: I was present with Nelida AVILA during the history and exam. I discussed the case with the PA and agree with the findings and plan as documented in the note. Any exceptions or clarifications are listed here: 57 y/o F Hx systolic CHF, CAD/[place], CKD III. post L renal transplant, TAMARA, SLE, schizoaffective disorder, borderline personality. Presents with a primary complaint of progressive weakness and some pain in her LLQ. Initial labs reveal a trop elevation which is new and a CT abd may be consistent with pyelonephritis. It is noted that she does not have symptoms of pyelo on admission and did not c/o CP or SOB. OE AAO x 3 S1,2 R CTAB Mild tenderness in her LLQ No CCE P: Pt is assigned to telemetry - serial enzymes ordered and will consider full dose anticoagulation with an upward trend - limited echo for WMA eval Placed on Ertapenem due to Hx of VRE and immunocompromised state SS for DM Does not currently display volume overload Documented By: Stas Jolly Resuscitation Status VTE Prophylaxis Will order VTE Prophylaxis: Yes
[2017-07-10] MEDS ORDERED: GLUCAGON FOR INJ 1 MG VIAL SQ PRN (17:15)
[2017-07-10] MEDS ORDERED: IV FLUIDS COMPLETED PRN (17:15)
[2017-07-10] MEDS ORDERED: GLUCOSE 10 TABS/TUBE PO PRN (17:15)
[2017-07-10] MEDS ORDERED: GLUCOSE 40% GEL 15 GM TUBE PO PRN (17:15)
[2017-07-10] MEDS ORDERED: DEXTROSE 50% 50 ML SYR IV PRN (17:15)
[2017-07-10] MEDS ORDERED: SODIUM CHLORIDE 0.9% 1000ML 1,000 ML IV SCH (17:30)
[2017-07-10 17:34] VITALS: BP 127/76; PULSE 73; TEMP 37.1; O2SAT 100; Ht 162.6 cm; Wt 78.2 kg
[2017-07-10] MEDS: ERTAPENEM IV 1 GM in SODIUM CHLOR 0.9% AD-VAN 50ML IV SCH (17:55)
[2017-07-10 19:39] VITALS: BP 130/77; PULSE 71; TEMP 37.3; O2SAT 90
[2017-07-10] MEDS: INSULIN ASPART 100 UNITS/ML 3 ML PEN SC SCH (21:27)
[2017-07-10] MEDS: DICLOFENAC SOD 1% GEL 100 GM TUBE EXT SCH (21:27)
[2017-07-10] MEDS: GABAPENTIN 400 MG CAP PO SCH (21:31)
[2017-07-10] MEDS: BACLOFEN 10 MG TAB PO SCH (21:31)
[2017-07-10] MEDS: MYCOPHENOLATE MOFETIL 250 MG CAP (CELLCEPT) PO SCH (21:32)
[2017-07-10] MEDS: CEROVITE ADV FORMULA TAB PO SCH (21:32)
[2017-07-10] MEDS: CycloSPORINE (NEORAL) 25 MG CAP PO SCH (21:33)
[2017-07-10] MEDS: HEPARIN SOD 5000 UNIT/0.5 ML CARP SQ SCH (21:34)
[2017-07-10] MEDS: TEMAZEPAM 15 MG CAP PO SCH (22:54)
[2017-07-11] VITALS (8 sets, daily range): BP systolic 90–125; BP diastolic 42–74; PULSE 54–74; TEMP 36.4–38.9; O2SAT 93–98
[2017-07-11] MEDS: ACETAMINOPHEN 325 MG TAB PO PRN (03:45)
[2017-07-11 06:42] LABS: HEMATOCRIT 29.7 % (37-47); HEMOGLOBIN 9.9 g/dL (12.0-16.0); MEAN CELL VOLUME 90.8 fL (80-100); MEAN CORPUSCULAR HEMOGLOBIN 30.3 pg (25-34); MEAN CORPUSCULAR HGB CONC 33.3 g/dl (32-36); MEAN PLATELET VOLUME 9.9 fL (7.4-10.4); PLATELET COUNT 168 K/uL (130-400); RED CELL DISTRIBUTION WIDTH CV 14.7 % (11.5-14.5); RED CELL DISTRIBUTION WIDTH SD 49.2 fL (36.4-46.3); WHITE BLOOD COUNT 11.62 K/uL (4.8-10.8)
[2017-07-11] MEDS: INSULIN ASPART 100 UNITS/ML 3 ML PEN SC SCH ×4 (07:00→21:14)
[2017-07-11 07:21] LABS: CREATININE 1.72 mg/dl (0.60-1.20)
--- NOTE | 2017-07-11 07:43 | DIAGNOSTIC IMAGING REPORT ---
CHEST ONE VIEW PORTABLE HISTORY: Increased respiratory rate. Mild shortness of breath. COMPARISON: Chest 07/10/2017. FINDINGS: The lungs are clear. Cardiac silhouette is normal in size. No pleural effusions. No pneumothorax. IMPRESSION: No acute process. Electronically signed by: Garrett Stubbs M.D. 07/11/2017 7:42 AM Dictated Date/Time: 07/11/2017 7:41 AM
--- NOTE | 2017-07-11 08:20 | Progress Note ---
Subjective Date of Service: Jul 11, 2017. Subjective Patient is slightly drowsy she is no focal complaints or problems she says she does feel weak. She has no focal abdominal pain or pain over transplanted kidney and she is not feeling markedly dysuric Problem List Medical Problems: (1) Acute diarrhea Status: Acute (2) Acute electrocardiogram changes Status: Acute (3) Acute psychosis Status: Acute (4) Acute renal failure Status: Acute (5) Altered mental status Status: Acute (6) Anxiety Status: Chronic (7) Attention deficit hyperactivity disorder Status: Chronic (8) Back pain Status: Acute (9) CHF (congestive heart failure) Status: Acute (10) Chronic pain Status: Acute (11) Chronic pain Status: Acute (12) Diarrhea Status: Acute (13) Generalized weakness Status: Acute (14) Hyperkalemia Status: Acute (15) Hypothermia Status: Acute (16) Immunosuppression Status: Acute (17) Influenza A Status: Acute (18) Joint pain Status: Acute (19) Joint pain Status: Acute (20) Low back pain Status: Acute (21) Lower abdominal pain Status: Acute (22) Mood disorder Status: Acute (23) Nausea & vomiting Status: Acute (24) Patient refused evaluation Status: Acute (25) Pyelonephritis Status: Acute (26) Refusal of care by patient Status: Acute (27) Renal insufficiency Status: Acute (28) Sepsis Status: Acute (29) Thrombocytopenia Status: Acute (30) Urinary tract infection Status: Acute (31) Weakness Status: Acute Review of Systems Constitutional: + weakness, + fatigue, No fever, No chills Respiratory: No cough, No wheezing, No shortness of breath Cardiac: No chest pain, No PND Abdomen: No pain, No nausea, No vomiting, No diarrhea Female : No dysuria, No urinary frequency, No hematuria Psychiatric: No depression symptoms, No anhedonism Objective Vital Signs Date Time Temp Pulse Resp B/P (MAP) Pulse Ox O2 Delivery O2 Flow Rate FiO2 07/11/17 07:28 36.9 59 20 106/67 (80) 93 07/11/17 05:30 36.9 07/11/17 04:00 Room Air 07/11/17 03:54 38.9 74 22 125/74 (91) 94 Room Air 07/11/17 00:00 Room Air 07/11/17 00:00 37.3 73 17 114/65 (81) 96 Room Air 07/10/17 20:00 Room Air 07/10/17 19:39 37.3 71 18 130/77 (94) 90 Room Air 07/10/17 17:34 37.1 73 19 127/76 100 Room Air 07/10/17 17:04 36.8 73 20 131/60 94 07/10/17 16:54 73 20 131/60 94 Room Air 07/10/17 15:34 36.8 74 22 128/71 Room Air 07/10/17 14:53 75 20 133/70 96 Room Air 07/10/17 13:30 74 16 118/75 96 Room Air 07/10/17 12:41 76 07/10/17 12:35 96 Room Air 07/10/17 12:35 77 16 137/75 96 Room Air 07/10/17 11:22 37.1 85 18 151/81 97 Room Air Physical Exam General Appearance: WD/WN, + mild distress Eyes: normal inspection, sclerae normal Respiratory/Chest: chest non-tender, lungs clear, normal breath sounds Cardiovascular: regular rate, rhythm, no murmur Abdomen: normal bowel sounds, non tender, soft Extremities: no pedal edema, no calf tenderness Neurologic/Psychiatric: alert, oriented x 3 Laboratory Results Last 24 Hours Test 07/10/17 12:30 07/10/17 13:30 07/10/17 13:53 07/10/17 14:05 White Blood Count 13.65 K/uL Red Blood Count 3.53 M/uL Hemoglobin 10.9 g/dL Hematocrit 32.1 % Mean Corpuscular Volume 90.9 fL Mean Corpuscular Hemoglobin 30.9 pg Mean Corpuscular Hemoglobin Concent 34.0 g/dl Platelet Count 188 K/uL Mean Platelet Volume 10.0 fL Neutrophils (%) (Auto) 62.5 % Lymphocytes (%) (Auto) 18.2 % Monocytes (%) (Auto) 18.8 % Eosinophils (%) (Auto) 0.1 % Basophils (%) (Auto) 0.2 % Neutrophils # (Auto) 8.52 K/uL Lymphocytes # (Auto) 2.49 K/uL Monocytes # (Auto) 2.56 K/uL Eosinophils # (Auto) 0.02 K/uL Basophils # (Auto) 0.03 K/uL RDW Standard Deviation 49.6 fL RDW Coefficient of Variation 14.8 % Immature Granulocyte % (Auto) 0.2 % Immature Granulocyte # (Auto) 0.03 K/uL Sodium Level 136 mmol/L Potassium Level 3.7 mmol/L Chloride Level 106 mmol/L Carbon Dioxide Level 19 mmol/L Anion Gap 11.0 mmol/L Blood Urea Nitrogen 35 mg/dl Creatinine 1.85 mg/dl Est Creatinine Clear Calc Drug Dose 34.3 ml/min Estimated GFR () 34.2 Estimated GFR (Non- 29.5 BUN/Creatinine Ratio 18.6 Random Glucose 210 mg/dl Calcium Level 8.4 mg/dl Phosphorus Level 3.0 mg/dl Magnesium Level 1.8 mg/dl Total Bilirubin 0.8 mg/dl Direct Bilirubin 0.3 mg/dl Aspartate Amino Transf (AST/SGOT) 13 U/L Alanine Aminotransferase (ALT/SGPT) 21 U/L Alkaline Phosphatase 110 U/L Troponin I 0.257 ng/ml Pro-B-Type Natriuretic Peptide 88584 pg/ml Total Protein 7.1 gm/dl Albumin 3.0 gm/dl Lipase 181 U/L Influenza Type A (RT-PCR) Neg for Influ A Influenza Type B (RT-PCR) Neg for Influ B Venous Blood pH 7.39 Venous Blood Partial Pressure CO2 36 mmHg Venous Blood Partial Pressure O2 33 mmHg Venous Blood HCO3 21 mmol/L Venous Blood Oxygen Saturation < 60.0 % Venous Blood Base Excess -3.3 mEq/L Lactic Acid Level 1.4 mmol/L Urine Color YELLOW Urine Appearance CLEAR Urine pH 5.0 Urine Specific [place] 1.022 Urine Protein NEG Urine Glucose (UA) 2+ Urine Ketones TRACE Urine Occult Blood NEG Urine Nitrite NEG Urine Bilirubin NEG Urine Urobilinogen NEG Urine Leukocyte Esterase SMALL Urine WBC (Auto) >30 /hpf Urine RBC (Auto) 0-4 /hpf Urine Hyaline Casts (Auto) 1-5 /lpf Urine Epithelial Cells (Auto) 5-10 /lpf Urine Bacteria (Auto) 1+ Urine Yeast (Auto) BUD W/ HYPHAE Test 07/10/17 17:28 07/10/17 20:18 07/11/17 00:15 07/11/17 06:17 Total Creatine Kinase 56 U/L Troponin I 0.219 ng/ml 0.175 ng/ml Bedside Glucose 134 mg/dl White Blood Count 11.62 K/uL Red Blood Count 3.27 M/uL Hemoglobin 9.9 g/dL Hematocrit 29.7 % Mean Corpuscular Volume 90.8 fL Mean Corpuscular Hemoglobin 30.3 pg Mean Corpuscular Hemoglobin Concent 33.3 g/dl RDW Standard Deviation 49.2 fL RDW Coefficient of Variation 14.7 % Platelet Count 168 K/uL Mean Platelet Volume 9.9 fL Sodium Level 138 mmol/L Potassium Level 4.0 mmol/L Chloride Level 109 mmol/L Carbon Dioxide Level 22 mmol/L Anion Gap 7.0 mmol/L Blood Urea Nitrogen 28 mg/dl Creatinine 1.72 mg/dl Est Creatinine Clear Calc Drug Dose 36.1 ml/min Estimated GFR () 37.3 Estimated GFR (Non- 32.2 BUN/Creatinine Ratio 16.5 Random Glucose 133 mg/dl Calcium Level 8.0 mg/dl Magnesium Level 1.7 mg/dl Assessment and Plan Pt presentes with generalized weakness and concern for pyelonephritis, the pt is immunosupressed with a transplanted kidney, with PMHx of Systolic CHF, T2DM, CAD with [place], CKD Stage III, TAMARA, SLE, Schizoaffective Disorder, and Borderline Personality Pyelonephritis in L Transplant Kidney: Gram-negative bacilli in both urine and blood suggesting gram-negative sirs on presentation - Ertapenem 500 mg IV daily for renal dosing - review of previous cultures suggests MDR e. coli - NSS at 75 mL/hr and monitor for volume overload with daily weights and I&Os - Cyclosporine 50 mg BID and Cellcept 250 mg BID Generalized Weakness: secondary to hydration and illness Chronic Systolic CHF and HTN: seems compensated, continue treatment with Lisinopril 5 mg daily Elevated Troponin with H/O CAD with MD:, does not appear to be acs, - ASA 81 mg daily, Imdur 60 mg daily, Crestor 5 mg daily T2DM:is stable- Lantus 20 units SC daily and SSI; Hold Victoza CKD Stage III: STABLE, renal dosing of antibiotics and other meds Schizoaffective Disorder/Borderline Personality Disorder: - Cymbalta 30 mg daily DVT Prophylaxis: Heparin, renal dosed Code Status: DO NOT RESUSCITATE
[2017-07-11] MEDS: CycloSPORINE (NEORAL) 25 MG CAP PO SCH ×2 (08:28→21:16)
[2017-07-11] MEDS: ROSUVASTATIN CALCIUM 10 MG TAB PO SCH (08:29)
[2017-07-11] MEDS: ASPIRIN 81 MG ECTAB PO SCH (08:29)
[2017-07-11] MEDS: LANSOPRAZOLE SOLUTAB 30 MG PO SCH (08:29)
[2017-07-11] MEDS: LISINOPRIL 5 MG TAB PO SCH (08:30)
[2017-07-11] MEDS: FAMOTIDINE 20 MG TAB PO PRN (08:30)
[2017-07-11] MEDS: BACLOFEN 10 MG TAB PO SCH ×3 (08:30→21:17)
[2017-07-11] MEDS: GABAPENTIN 400 MG CAP PO SCH ×3 (08:30→21:17)
[2017-07-11] MEDS: MYCOPHENOLATE MOFETIL 250 MG CAP (CELLCEPT) PO SCH ×2 (08:31→21:15)
[2017-07-11] MEDS: DULOXETINE (CYMBALTA) 30 MG CAP PO SCH (08:31)
[2017-07-11] MEDS: CEROVITE ADV FORMULA TAB PO SCH ×2 (08:31→21:17)
[2017-07-11] MEDS: ISOSORBIDE MONONITRATE 30 MG TABCR PO SCH (08:32)
[2017-07-11] MEDS: HEPARIN SOD 5000 UNIT/0.5 ML CARP SQ SCH ×3 (08:33→21:00)
[2017-07-11] MEDS: INSULIN GLARGINE SOLOSTAR 100 UNITS/ML 3 ML PEN SC SCH (08:34)
[2017-07-11] MEDS: DICLOFENAC SOD 1% GEL 100 GM TUBE EXT SCH ×4 (08:35→21:15)
[2017-07-11] MEDS: ERTAPENEM IV 1 GM in SODIUM CHLOR 0.9% AD-VAN 50ML IV SCH (17:01)
--- NOTE | 2017-07-11 18:11 | ECHOCARDIOGRAM REPORT ---
*NOTICE TO RECEIVING LIBERTARIAN AGENCY This information is strictly Confidential and protected under [place] law. [place] law prohibits you from making any further disclosure of this information unless further disclosure is expressly permitted by the written consent of the person to whom it pertains or is authorized by law. A general authorization for the release of medical or other information is not sufficient for this purpose. Hospital accepts no responsibility if the information is made available to any other person, INCLUDING THE PATIENT. Interpretation Summary * Name: DAY SANDOVAL Study Date: 07/11/2017 01:00 PM BP: 125/74 mmHg * Patient Location: C.2T\S\E215\S\1 HR: 74 * : 1960 (M/d/yyyy) Gender: Female Height: 64 in * Age: 57 yrs Ethnicity: CA Weight: 180 lb * Ordering Physician: Nelida Robledo * Referring Physician: Self, Referred * Performed By: Gogo Blair RCS * * Reason For Study: AMI, Assess for wall motion abnormalities * BSA: 1.9 m2 * -- Conclusions -- * 1. Moderately dilated left ventricle with mildly reduced systolic function. EF 40-45%. Akinesis of the inferolateral wall and basal inferior wall segments. Otherwise, global hypokinesis. No left ventricular hypertrophy. Type 1 diastolic dysfunction. * 2. The left atrium is mildly dilated. * 3. There is mild mitral regurgitation. * 4. Normal estimated right ventricular systolic pressure. * 5. Compared to prior study on 01/15/2017, LV systolic function has improved. Procedure Details * A complete two-dimensional transthoracic echocardiogram was performed (2D, M-mode, Doppler and color flow Doppler). Left Ventricle * Moderately dilated left ventricle with mildly reduced systolic function. EF 40-45%. Akinesis of the inferolateral wall and basal inferior wall segments. Otherwise, global hypokinesis. No left ventricular hypertrophy. Type 1 diastolic dysfunction. Right Ventricle * The right ventricle is grossly normal size. * The right ventricular systolic function is normal as assessed by tricuspid annular plane systolic excursion (TAPSE) (normal >1.5 cm). Atria * The left atrium is mildly dilated. * Right atrial size is normal. * No ASD visualized. Mitral Valve * There is mild mitral annular calcification. * There is no mitral valve stenosis. * There is mild mitral regurgitation. Tricuspid Valve * The tricuspid valve is not well visualized, but is grossly normal. * There is no tricuspid stenosis. * There is mild tricuspid regurgitation. Aortic Valve * The aortic valve is trileaflet. * No hemodynamically significant valvular aortic stenosis. * There is no significant aortic regurgitation. Pulmonic Valve * The pulmonic valve is not well seen, but is grossly normal. * There is no pulmonic valvular stenosis. * Trace pulmonic valvular regurgitation. Great Vessels * The aortic root is normal size. * Aortic arch of normal dimension. Pericardium/Pleural * There is no pericardial effusion. Great Vessels * Normal inferior vena cava size and collapsability with sniff indicates a normal right atrial pressure of 3 mmHg MMode 2D Measurements and Calculations IVSd 0.80 cm IVSs 1.2 cm LVIDd 6.4 cm LVIDs 5.0 cm LVPWd 1.0 cm LVPWs 1.2 cm IVS/LVPW 0.77 FS 22.0 % EDV(Teich) 210.0 ml ESV(Teich) 118.7 ml EF(Teich) 43.5 % EDV(cubed) 264.6 ml ESV(cubed) 125.6 ml EF(cubed) 52.5 % % IVS thick 44.0 % % LVPW thick 12.3 % LV mass(C)d 250.1 grams LV mass(C)dI 133.7 grams/m\S\2 LV mass(C)s 224.3 grams LV mass(C)sI 119.9 grams/m\S\2 SV(Teich) 91.3 ml SI(Teich) 48.8 ml/m\S\2 SV(cubed) 139.0 ml SI(cubed) 74.3 ml/m\S\2 Ao root diam 2.8 cm Ao root area 6.4 cm\S\2 ACS 1.9 cm LA dimension 3.9 cm asc Aorta Diam 3.3 cm LA/Ao 1.4 LVOT diam 2.2 cm LVOT area 4.0 cm\S\2 LVAd ap4 36.3 cm\S\2 LVLd ap4 8.1 cm EDV(MOD-sp4) 136.3 ml EDV(sp4-el) 138.0 ml LVAs ap4 25.5 cm\S\2 LVLs ap4 7.2 cm ESV(MOD-sp4) 78.4 ml ESV(sp4-el) 76.7 ml EF(MOD-sp4) 42.4 % EF(sp4-el) 44.5 % EDV(MOD-sp2) 139.0 ml ESV(MOD-sp2) 75.0 ml EF(MOD-sp2) 46.0 % SV(MOD-sp4) 57.9 ml SI(MOD-sp4) 30.9 ml/m\S\2 SV(MOD-sp2) 64.0 ml SI(MOD-sp2) 34.2 ml/m\S\2 SV(sp4-el) 61.4 ml SI(sp4-el) 32.8 ml/m\S\2 Doppler Measurements and Calculations MV E max viry 98.7 cm/sec MV A max viry 110.5 cm/sec MV E/A 0.89 MV P1/2t max viry 109.5 cm/sec MV P1/2t 89.0 msec MVA(P1/2t) 2.5 cm\S\2 MV dec slope 360.3 cm/sec\S\2 MV dec time 0.30 sec Ao V2 max 154.1 cm/sec Ao max PG 9.5 mmHg Ao max PG (full) 7.6 mmHg JESUS(V,A) 1.8 cm\S\2 JESUS(V,D) 1.8 cm\S\2 LV V1 max PG 1.9 mmHg LV V1 max 69.2 cm/sec TV E max viry 50.6 cm/sec PA V2 max 86.7 cm/sec PA max PG 3.0 mmHg PI max viry 135.5 cm/sec PI max PG 7.3 mmHg PI dec slope 73.7 cm/sec\S\2 PI P1/2t 538.3 msec TR max viry 235.5 cm/sec RVSP(TR) 25.3 mmHg RAP systole 3.0 mmHg
[2017-07-11] MEDS: TEMAZEPAM 15 MG CAP PO SCH (21:19)
[2017-07-12 03:15] VITALS: BP 147/78; PULSE 66; TEMP 36.6; O2SAT 98
[2017-07-12 06:15] LABS: HEMATOCRIT 26.5 % (37-47); MEAN CELL VOLUME 89.2 fL (80-100); MEAN CORPUSCULAR HEMOGLOBIN 30.3 pg (25-34); MEAN PLATELET VOLUME 9.9 fL (7.4-10.4); PLATELET COUNT 159 K/uL (130-400); RED CELL DISTRIBUTION WIDTH CV 14.4 % (11.5-14.5); RED CELL DISTRIBUTION WIDTH SD 47.9 fL (36.4-46.3); WHITE BLOOD COUNT 5.47 K/uL (4.8-10.8)
[2017-07-12 06:46] LABS: CALCIUM 8.4 mg/dl (8.5-10.1); CREATININE 1.22 mg/dl (0.60-1.20); POTASSIUM 4.6 mmol/L (3.5-5.1)
[2017-07-12] MEDS: INSULIN ASPART 100 UNITS/ML 3 ML PEN SC SCH ×4 (07:00→21:24)
[2017-07-12 07:08] VITALS: BP 149/86; PULSE 66; TEMP 37; O2SAT 96
[2017-07-12] MEDS ORDERED: MAGNESIUM SULFATE 1GM / D5W 1 GM in PREMIXED IN D5W 100 ML IV ONE (08:00)
[2017-07-12] MEDS: DICLOFENAC SOD 1% GEL 100 GM TUBE EXT SCH ×4 (08:53→20:00)
[2017-07-12] MEDS: GABAPENTIN 400 MG CAP PO SCH ×3 (08:53→20:05)
[2017-07-12] MEDS: CEROVITE ADV FORMULA TAB PO SCH ×2 (08:54→20:09)
[2017-07-12] MEDS: BACLOFEN 10 MG TAB PO SCH ×3 (08:54→20:08)
[2017-07-12] MEDS: ISOSORBIDE MONONITRATE 30 MG TABCR PO SCH (08:54)
[2017-07-12] MEDS: DULOXETINE (CYMBALTA) 30 MG CAP PO SCH (08:55)
[2017-07-12] MEDS: ASPIRIN 81 MG ECTAB PO SCH (08:56)
[2017-07-12] MEDS: ROSUVASTATIN CALCIUM 10 MG TAB PO SCH (08:56)
[2017-07-12] MEDS: LANSOPRAZOLE SOLUTAB 30 MG PO SCH (08:56)
[2017-07-12] MEDS: CycloSPORINE (NEORAL) 25 MG CAP PO SCH ×2 (08:56→20:09)
[2017-07-12] MEDS: MYCOPHENOLATE MOFETIL 250 MG CAP (CELLCEPT) PO SCH ×2 (08:56→20:08)
[2017-07-12] MEDS: LISINOPRIL 5 MG TAB PO SCH (08:57)
[2017-07-12] MEDS: HEPARIN SOD 5000 UNIT/0.5 ML CARP SQ SCH ×2 (09:00→20:09)
[2017-07-12] MEDS: INSULIN GLARGINE SOLOSTAR 100 UNITS/ML 3 ML PEN SC SCH (09:02)
[2017-07-12 11:34] VITALS: BP 143/81; PULSE 62; TEMP 36.5; O2SAT 95
--- NOTE | 2017-07-12 15:34 | Progress Note ---
Subjective Date of Service: Jul 12, 2017. Subjective this pt keeps her eyes closed during my visit, states she feels "ok" no other c/ o Problem List Medical Problems: (1) Acute diarrhea Status: Acute (2) Acute electrocardiogram changes Status: Acute (3) Acute psychosis Status: Acute (4) Acute renal failure Status: Acute (5) Altered mental status Status: Acute (6) Anxiety Status: Chronic (7) Attention deficit hyperactivity disorder Status: Chronic (8) Back pain Status: Acute (9) CHF (congestive heart failure) Status: Acute (10) Chronic pain Status: Acute (11) Chronic pain Status: Acute (12) Diarrhea Status: Acute (13) Generalized weakness Status: Acute (14) Hyperkalemia Status: Acute (15) Hypothermia Status: Acute (16) Immunosuppression Status: Acute (17) Influenza A Status: Acute (18) Joint pain Status: Acute (19) Joint pain Status: Acute (20) Low back pain Status: Acute (21) Lower abdominal pain Status: Acute (22) Mood disorder Status: Acute (23) Nausea & vomiting Status: Acute (24) Patient refused evaluation Status: Acute (25) Pyelonephritis Status: Acute (26) Refusal of care by patient Status: Acute (27) Renal insufficiency Status: Acute (28) Sepsis Status: Acute (29) Thrombocytopenia Status: Acute (30) Urinary tract infection Status: Acute (31) Weakness Status: Acute Review of Systems Constitutional: + weakness, + fatigue, No fever, No chills Respiratory: No cough, No shortness of breath Cardiac: No chest pain, No edema Abdomen: No pain, No diarrhea Musculoskeletal: No joint pain, No muscle pain Female : + urinary frequency, No dysuria, No hematuria, No incontinence Objective Vital Signs Date Time Temp Pulse Resp B/P (MAP) Pulse Ox O2 Delivery O2 Flow Rate FiO2 07/12/17 12:00 Room Air 07/12/17 11:34 36.5 62 16 143/81 (101) 95 Room Air 07/12/17 08:00 Room Air 07/12/17 07:08 37.0 66 18 149/86 (107) 96 07/12/17 04:00 Room Air 07/12/17 03:15 36.6 66 22 147/78 (101) 98 Room Air 07/11/17 23:59 Room Air 4/20/18 23:51 36.8 65 20 123/62 (82) 95 Room Air 07/11/17 20:00 Room Air 07/11/17 16:00 36.5 60 18 90/54 (66) 93 07/11/17 16:00 Room Air Physical Exam General Appearance: WD/WN, + mild distress Neck: supple, no JVD Respiratory/Chest: chest non-tender, lungs clear, normal breath sounds Cardiovascular: regular rate, rhythm, no murmur Abdomen: normal bowel sounds, non tender, soft Neurologic/Psychiatric: alert, oriented x 3 Laboratory Results Last 24 Hours Test 07/11/17 15:55 07/11/17 20:55 07/12/17 05:48 07/12/17 06:41 Bedside Glucose 234 mg/dl 276 mg/dl 167 mg/dl White Blood Count 5.47 K/uL Red Blood Count 2.97 M/uL Hemoglobin 9.0 g/dL Hematocrit 26.5 % Mean Corpuscular Volume 89.2 fL Mean Corpuscular Hemoglobin 30.3 pg Mean Corpuscular Hemoglobin Concent 34.0 g/dl RDW Standard Deviation 47.9 fL RDW Coefficient of Variation 14.4 % Platelet Count 159 K/uL Mean Platelet Volume 9.9 fL Sodium Level 136 mmol/L Potassium Level 4.6 mmol/L Chloride Level 107 mmol/L Carbon Dioxide Level 22 mmol/L Anion Gap 7.0 mmol/L Blood Urea Nitrogen 26 mg/dl Creatinine 1.22 mg/dl Est Creatinine Clear Calc Drug Dose 50.9 ml/min Estimated GFR () 56.6 Estimated GFR (Non- 48.8 BUN/Creatinine Ratio 21.0 Random Glucose 169 mg/dl Calcium Level 8.4 mg/dl Magnesium Level 1.7 mg/dl Test 07/12/17 11:14 Bedside Glucose 216 mg/dl Assessment and Plan Pt presentes with generalized weakness and concern for pyelonephritis she is fond to have MRR UTI, the pt is immunosupressed with a transplanted kidney, with PMHx of Systolic CHF, T2DM, CAD with [place], CKD Stage III, TAMARA, SLE, Schizoaffective Disorder, and Borderline Personality 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 coli - NSS at 75 mL/hr and monitor for volume overload with daily weights and I&Os - Cyclosporine 50 mg BID and Cellcept 250 mg BID Generalized Weakness: secondary to hydration and illness, unclear if affect is secondary to metabolic encephalopathy or psychiatric underlying illness Chronic Systolic CHF and HTN: remains compensated with treatment with Lisinopril 5 mg daily Elevated Troponin with H/O CAD with [place]:, does not appear to be acs, trending downward - ASA 81 mg daily, Imdur 60 mg daily, Crestor 5 mg daily T2DM controlled - Lantus 20 units SC daily and SSI; Hold Victoza CKD Stage III: continue renal dosing of antibiotics and other meds Schizoaffective Disorder/Borderline Personality Disorder: affects her interaction with staff - Cymbalta 30 mg daily DVT Prophylaxis: Heparin, renal dosed Code Status: DO NOT RESUSCITATE
[2017-07-12 15:56] VITALS: BP 137/82; PULSE 74; TEMP 36.9; O2SAT 97
[2017-07-12] MEDS: ERTAPENEM IV 1 GM in SODIUM CHLOR 0.9% AD-VAN 50ML IV SCH (17:42)
[2017-07-12 17:51] VITALS: BP 157/80; PULSE 74; TEMP 36.8; O2SAT 97
[2017-07-12] MEDS: TEMAZEPAM 15 MG CAP PO SCH (21:15)
[2017-07-12 22:13] VITALS: BP 149/81; PULSE 69; TEMP 36.8; O2SAT 94
[2017-07-13] MEDS: INSULIN ASPART 100 UNITS/ML 3 ML PEN SC SCH ×4 (06:30→22:00)
[2017-07-13] MEDS: DICLOFENAC SOD 1% GEL 100 GM TUBE EXT SCH ×5 (08:00→20:12)
[2017-07-13 08:10] VITALS: BP 175/94; PULSE 65; TEMP 36.8; O2SAT 96
[2017-07-13] MEDS: MYCOPHENOLATE MOFETIL 250 MG CAP (CELLCEPT) PO SCH ×2 (08:27→20:17)
[2017-07-13] MEDS: GABAPENTIN 400 MG CAP PO SCH ×3 (08:28→20:16)
[2017-07-13] MEDS: CEROVITE ADV FORMULA TAB PO SCH ×2 (08:28→20:16)
[2017-07-13] MEDS: DULOXETINE (CYMBALTA) 30 MG CAP PO SCH (08:28)
[2017-07-13] MEDS: LISINOPRIL 5 MG TAB PO SCH (08:28)
[2017-07-13] MEDS: ISOSORBIDE MONONITRATE 30 MG TABCR PO SCH (08:29)
[2017-07-13] MEDS: BACLOFEN 10 MG TAB PO SCH ×3 (08:29→20:16)
[2017-07-13] MEDS: ASPIRIN 81 MG ECTAB PO SCH (08:29)
[2017-07-13] MEDS: ROSUVASTATIN CALCIUM 10 MG TAB PO SCH (08:30)
[2017-07-13] MEDS: CycloSPORINE (NEORAL) 25 MG CAP PO SCH ×2 (08:30→20:18)
[2017-07-13 08:31] LABS: HEMATOCRIT 28.2 % (37-47); HEMOGLOBIN 9.6 g/dL (12.0-16.0); MEAN CORPUSCULAR HEMOGLOBIN 30.3 pg (25-34); MEAN PLATELET VOLUME 10.1 fL (7.4-10.4); PLATELET COUNT 199 K/uL (130-400); RED CELL DISTRIBUTION WIDTH CV 14.3 % (11.5-14.5); RED CELL DISTRIBUTION WIDTH SD 46.9 fL (36.4-46.3); WHITE BLOOD COUNT 5.66 K/uL (4.8-10.8)
[2017-07-13] MEDS: HEPARIN SOD 5000 UNIT/0.5 ML CARP SQ SCH ×2 (08:32→20:18)
[2017-07-13] MEDS: INSULIN GLARGINE SOLOSTAR 100 UNITS/ML 3 ML PEN SC SCH (08:40)
[2017-07-13] MEDS: LANSOPRAZOLE SOLUTAB 30 MG PO SCH (08:41)
[2017-07-13 08:56] LABS: CALCIUM 9.1 mg/dl (8.5-10.1); CREATININE 1.26 mg/dl (0.60-1.20); POTASSIUM 4.2 mmol/L (3.5-5.1)
[2017-07-13 15:20] VITALS: BP 134/81; PULSE 63; TEMP 36.8; O2SAT 96
--- NOTE | 2017-07-13 15:43 | Progress Note ---
Subjective Date of Service: Jul 13, 2017. Subjective pt remains fairly dismissive to me during my visits states she is "ok" Problem List Medical Problems: (1) Acute diarrhea Status: Acute (2) Acute electrocardiogram changes Status: Acute (3) Acute psychosis Status: Acute (4) Acute renal failure Status: Acute (5) Altered mental status Status: Acute (6) Anxiety Status: Chronic (7) Attention deficit hyperactivity disorder Status: Chronic (8) Back pain Status: Acute (9) CHF (congestive heart failure) Status: Acute (10) Chronic pain Status: Acute (11) Chronic pain Status: Acute (12) Diarrhea Status: Acute (13) Generalized weakness Status: Acute (14) Hyperkalemia Status: Acute (15) Hypothermia Status: Acute (16) Immunosuppression Status: Acute (17) Influenza A Status: Acute (18) Joint pain Status: Acute (19) Joint pain Status: Acute (20) Low back pain Status: Acute (21) Lower abdominal pain Status: Acute (22) Mood disorder Status: Acute (23) Nausea & vomiting Status: Acute (24) Patient refused evaluation Status: Acute (25) Pyelonephritis Status: Acute (26) Refusal of care by patient Status: Acute (27) Renal insufficiency Status: Acute (28) Sepsis Status: Acute (29) Thrombocytopenia Status: Acute (30) Urinary tract infection Status: Acute (31) Weakness Status: Acute Review of Systems Constitutional: No fever, No chills, No weakness, No fatigue Cardiac: No chest pain, No edema Abdomen: No pain, No nausea, No vomiting, No diarrhea Neurologic: + weakness, No memory loss, No paralysis Psychiatric: + depression symptoms, + anhedonism Objective Vital Signs Date Time Temp Pulse Resp B/P (MAP) Pulse Ox O2 Delivery O2 Flow Rate FiO2 07/13/17 15:20 36.8 63 18 134/81 (98) 96 07/13/17 08:10 36.8 65 18 175/94 (121) 96 07/13/17 08:00 Room Air 07/13/17 01:00 Room Air 07/12/17 22:13 36.8 69 20 149/81 (103) 94 Room Air 07/12/17 17:51 36.8 74 18 157/80 (105) 97 07/12/17 17:00 Room Air 07/12/17 16:00 Room Air 07/12/17 15:56 36.9 74 16 137/82 (100) 97 Room Air Physical Exam General Appearance: WD/WN, + mild distress Eyes: normal inspection, sclerae normal Neck: supple, no JVD Respiratory/Chest: chest non-tender, lungs clear, normal breath sounds Cardiovascular: regular rate, rhythm, no murmur Abdomen: normal bowel sounds, non tender, soft Neurologic/Psychiatric: alert, + depressed affect Laboratory Results Last 24 Hours Test 07/12/17 16:11 07/12/17 20:17 07/13/17 07:56 07/13/17 08:09 Bedside Glucose 154 mg/dl 219 mg/dl 134 mg/dl White Blood Count 5.66 K/uL Red Blood Count 3.17 M/uL Hemoglobin 9.6 g/dL Hematocrit 28.2 % Mean Corpuscular Volume 89.0 fL Mean Corpuscular Hemoglobin 30.3 pg Mean Corpuscular Hemoglobin Concent 34.0 g/dl RDW Standard Deviation 46.9 fL RDW Coefficient of Variation 14.3 % Platelet Count 199 K/uL Mean Platelet Volume 10.1 fL Sodium Level 138 mmol/L Potassium Level 4.2 mmol/L Chloride Level 106 mmol/L Carbon Dioxide Level 22 mmol/L Anion Gap 10.0 mmol/L Blood Urea Nitrogen 23 mg/dl Creatinine 1.26 mg/dl Est Creatinine Clear Calc Drug Dose 49.3 ml/min Estimated GFR () 54.4 Estimated GFR (Non- 46.9 BUN/Creatinine Ratio 18.2 Random Glucose 150 mg/dl Calcium Level 9.1 mg/dl Magnesium Level 2.0 mg/dl Test 07/13/17 12:16 Bedside Glucose 240 mg/dl Assessment and Plan Pt presented with generalized weakness and concern for pyelonephritis she is fond to have MRR UTI, the pt is immuno suppressed with a transplanted kidney, with PMHx of Systolic CHF, T2DM, CAD with [place], CKD Stage III, TAMARA, SLE, Schizoaffective Disorder, and Borderline Personality 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 coli this has been a recurrent issue for her will Have ID involved - NSS at 75 mL/hr and monitor for volume overload with daily weights and I&Os - Cyclosporine 50 mg BID and Cellcept 250 mg BID Generalized Weakness: secondary to hydration and illness, unclear if affect is secondary to metabolic encephalopathy or psychiatric underlying illness, she seems to be disconnected and not generally oob will not have PT/OT as she refused the thought during my visit Chronic Systolic CHF and HTN: remains compensated with treatment with Lisinopril 5 mg daily Elevated Troponin with H/O CAD with [place]:,is not acs, - ASA 81 mg daily, Imdur 60 mg daily, Crestor 5 mg daily T2DM controlled while here with compliance and diet - Lantus 20 units SC daily and SSI; Hold Victoza CKD Stage III: continue renal dosing of antibiotics and other meds Schizoaffective Disorder/Borderline Personality Disorder: affects her interaction with staff - Cymbalta 30 mg daily DVT Prophylaxis: Heparin, renal dosed Code Status: DO NOT RESUSCITATE
[2017-07-13] MEDS: ERTAPENEM IV 1 GM in SODIUM CHLOR 0.9% AD-VAN 50ML IV SCH (17:39)
[2017-07-13] MEDS: TEMAZEPAM 15 MG CAP PO SCH (22:18)
[2017-07-13 22:59] VITALS: BP 139/81; PULSE 63; TEMP 36.7; O2SAT 94
[2017-07-14] MEDS: INSULIN ASPART 100 UNITS/ML 3 ML PEN SC SCH ×4 (06:30→21:49)
[2017-07-14 07:17] VITALS: BP 151/89; PULSE 66; TEMP 36.7; O2SAT 93
[2017-07-14 08:00] VITALS: O2SAT 93
[2017-07-14] MEDS: DICLOFENAC SOD 1% GEL 100 GM TUBE EXT SCH ×4 (08:00→19:57)
[2017-07-14] MEDS: LISINOPRIL 5 MG TAB PO SCH (08:18)
[2017-07-14] MEDS: CycloSPORINE (NEORAL) 25 MG CAP PO SCH ×2 (08:18→20:00)
[2017-07-14] MEDS: CEROVITE ADV FORMULA TAB PO SCH ×2 (08:19→20:00)
[2017-07-14] MEDS: ISOSORBIDE MONONITRATE 30 MG TABCR PO SCH (08:19)
[2017-07-14] MEDS: BACLOFEN 10 MG TAB PO SCH ×3 (08:20→19:59)
[2017-07-14] MEDS: LANSOPRAZOLE SOLUTAB 30 MG PO SCH (08:20)
[2017-07-14] MEDS: DULOXETINE (CYMBALTA) 30 MG CAP PO SCH (08:20)
[2017-07-14] MEDS: GABAPENTIN 400 MG CAP PO SCH ×3 (08:20→20:00)
[2017-07-14] MEDS: MYCOPHENOLATE MOFETIL 250 MG CAP (CELLCEPT) PO SCH ×2 (08:20→20:01)
[2017-07-14] MEDS: ROSUVASTATIN CALCIUM 10 MG TAB PO SCH (08:21)
[2017-07-14] MEDS: ASPIRIN 81 MG ECTAB PO SCH (08:22)
[2017-07-14] MEDS: INSULIN GLARGINE SOLOSTAR 100 UNITS/ML 3 ML PEN SC SCH (08:33)
[2017-07-14] MEDS: HEPARIN SOD 5000 UNIT/0.5 ML CARP SQ SCH ×2 (09:00→21:49)
--- NOTE | 2017-07-14 11:01 | Progress Note ---
Progress Note Date of Service Jul 14, 2017. Progress Note ID Consult Dictated #[id number] A/P: 1. E. coli Septicemia - secondary to urinary source 2. Leukocytosis - resolved -Continue ertapenem, suggest repeat blood culture -Will need 14 days -thank you
--- NOTE | 2017-07-14 12:08 | INFECT. DISEASE CONSULTATION ---
DATE OF CONSULTATION: 07/14/2017 HISTORY OF PRESENT ILLNESS: This is a 57-year-old female who was admitted to the hospital secondary to positive troponins. She does have a history of schizoaffective disorder and borderline personality and she does not offer any review of systems on my examination. She continues to repeat that she is "fine." She did have a urinalysis done as part of her initial workup which did show greater than 30 wbc's, bacteria and yeast. Urine culture is growing multidrug resistant E. coli as well as blood cultures obtained on the . She has been on ertapenem since admission and she is tolerating this well. Her isolate is sensitive to ertapenem. No repeat blood cultures have been obtained. She did have a CT of the abdomen and pelvis which showed some stranding around her transplanted kidney, but mild improvement. She had an isolated fever on the of 38.9, but has otherwise been afebrile since admission. Her initial white blood cell count was elevated at 13, but has improved to 5.6. REVIEW OF SYSTEMS: I am unable to obtain any review of systems from the patient on my examination. PAST MEDICAL HISTORY: Significant for schizoaffective disorder, borderline personality psychosis, attention deficit hyperactivity disorder, hypertension, history of CVA, coronary artery disease, type 2 diabetes, GERD, osteoporosis, lupus. PAST SURGICAL HISTORY: Significant for coronary artery stenting, kidney transplant and parathyroidectomy. FAMILY HISTORY: Noncontributory. SOCIAL HISTORY: Negative for tobacco use, alcohol or drug use. ALLERGIES: SHE HAS ALLERGIES TO PENICILLIN, LOPERAMIDE, VANCOMYCIN, AND ZIPRASIDONE. CURRENT MEDICATIONS: Aspirin, Cymbalta, Lantus, Imdur, Zestril, Crestor, Prevacid, baclofen, cyclosporine, Pepcid, Neurontin, CellCept, multivitamins, Restoril, diclofenac, insulin, subQ heparin, ertapenem, Tylenol, Maalox, milk of magnesia, Zofran and MiraLax. PHYSICAL EXAMINATION: VITAL SIGNS: She is afebrile, pulse 66, respiratory rate 20, blood pressure 151/89, oxygen saturation is 93-96% on room air. GENERAL: She is awake and appropriate, but does not participate in the majority of questioning. HEENT: Mucous membranes are moist. LUNGS: Clear bilaterally with poor inspiratory effort. HEART: Regular. ABDOMEN: Nontender. SKIN: Without rash. LABORATORY STUDIES: CBC: White blood cell count 5.6, hemoglobin 9.6, platelets 199. Chemistry panel: Sodium 138, potassium 4.2, chloride 106, BUN 23, creatinine 1.2, glucose 122. UA again had greater than 30 wbc's, 1+ bacteria. Flu swab was negative. Blood cultures on the , 1/2 sets grew multidrug resistant E. coli. Urine culture also grew multidrug resistant E. coli sensitive to ertapenem. CT of the abdomen and pelvis is as above. Her most recent chest x-ray on the was negative for acute process. ASSESSMENT AND PLAN: Escherichia coli septicemia, likely related to urinary source as she remains on ertapenem and should receive 14 days total. Repeat blood cultures are recommended.
[2017-07-14 15:07] VITALS: BP 159/80; PULSE 68; TEMP 36.4; O2SAT 98
[2017-07-14 16:00] VITALS: O2SAT 93
[2017-07-14] MEDS: ERTAPENEM IV 1 GM in SODIUM CHLOR 0.9% AD-VAN 50ML IV SCH (17:50)
[2017-07-14] MEDS: TEMAZEPAM 15 MG CAP PO SCH (21:49)
--- NOTE | 2017-07-14 22:29 | Progress Note ---
Subjective Date of Service: Jul 14, 2017. Subjective Pt evaluation today including: conversation w/ patient 57 yo female does not provide any significant history. She just states that she feels well. Problem List Medical Problems: (1) Acute diarrhea Status: Acute (2) Acute electrocardiogram changes Status: Acute (3) Acute psychosis Status: Acute (4) Acute renal failure Status: Acute (5) Altered mental status Status: Acute (6) Anxiety Status: Chronic (7) Attention deficit hyperactivity disorder Status: Chronic (8) Back pain Status: Acute (9) CHF (congestive heart failure) Status: Acute (10) Chronic pain Status: Acute (11) Chronic pain Status: Acute (12) Diarrhea Status: Acute (13) Generalized weakness Status: Acute (14) Hyperkalemia Status: Acute (15) Hypothermia Status: Acute (16) Immunosuppression Status: Acute (17) Influenza A Status: Acute (18) Joint pain Status: Acute (19) Joint pain Status: Acute (20) Low back pain Status: Acute (21) Lower abdominal pain Status: Acute (22) Mood disorder Status: Acute (23) Nausea & vomiting Status: Acute (24) Patient refused evaluation Status: Acute (25) Pyelonephritis Status: Acute (26) Refusal of care by patient Status: Acute (27) Renal insufficiency Status: Acute (28) Sepsis Status: Acute (29) Thrombocytopenia Status: Acute (30) Urinary tract infection Status: Acute (31) Weakness Status: Acute Review of Systems Constitutional: No fever, No chills, No weakness, No fatigue Cardiac: No chest pain, No edema Abdomen: No pain, No nausea, No vomiting, No diarrhea Neurologic: + weakness, No memory loss, No paralysis Psychiatric: + depression symptoms, + anhedonism All Other Systems: Reviewed and Negative Objective Vital Signs Date Time Temp Pulse Resp B/P (MAP) Pulse Ox O2 Delivery O2 Flow Rate FiO2 07/14/17 20:13 Room Air 07/14/17 16:00 93 Room Air 07/14/17 15:07 36.4 68 18 159/80 (106) 98 Room Air 07/14/17 08:00 93 Room Air 07/14/17 07:17 36.7 66 20 151/89 (109) 93 Room Air 07/14/17 00:38 Room Air 07/13/17 22:59 36.7 63 16 139/81 (100) 94 Room Air Physical Exam Comments: General Appearance: WD/WN, + mild distress Eyes: normal inspection, sclerae normal Neck: supple, no JVD Respiratory/Chest: chest non-tender, lungs clear, normal breath sounds Cardiovascular: regular rate, rhythm, no murmur Abdomen: normal bowel sounds, non tender, soft Neurologic/Psychiatric: alert, + depressed affect Laboratory Results Last 24 Hours Test 07/14/17 07:32 07/14/17 11:51 07/14/17 16:51 07/14/17 20:09 Bedside Glucose 122 mg/dl 220 mg/dl 185 mg/dl 210 mg/dl Assessment and Plan Pt presented with generalized weakness and concern for pyelonephritis she is fond to have MRR UTI, the pt is immuno suppressed with a transplanted kidney, with PMHx of Systolic CHF, T2DM, CAD with [place], CKD Stage III, TAMARA, SLE, Schizoaffective Disorder, and Borderline Personality 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 coli this has been a recurrent issue for her will Have ID involved - NSS at 75 mL/hr and monitor for volume overload with daily weights and I&Os - Cyclosporine 50 mg BID and Cellcept 250 mg BID - Awaiting cultures Generalized Weakness: secondary to hydration and illness, unclear if affect is secondary to metabolic encephalopathy or psychiatric underlying illness, she seems to be disconnected and not generally oob will not have PT/OT as she refused the thought during my visit Chronic Systolic CHF and HTN: remains compensated with treatment with Lisinopril 5 mg daily Elevated Troponin with H/O CAD with [place]:,is not acs, - ASA 81 mg daily, Imdur 60 mg daily, Crestor 5 mg daily T2DM controlled while here with compliance and diet - Lantus 20 units SC daily and SSI; Hold Victoza CKD Stage III: continue renal dosing of antibiotics and other meds Schizoaffective Disorder/Borderline Personality Disorder: affects her interaction with staff - Cymbalta 30 mg daily DVT Prophylaxis: Heparin, renal dosed Code Status: DO NOT RESUSCITATE
[2017-07-14 23:46] VITALS: BP 130/75; PULSE 60; TEMP 36.3; O2SAT 95
[2017-07-15] MEDS: INSULIN ASPART 100 UNITS/ML 3 ML PEN SC SCH ×4 (06:30→21:52)
[2017-07-15 07:22] VITALS: BP 157/73; PULSE 51; TEMP 36.7; O2SAT 94
[2017-07-15] MEDS: LANSOPRAZOLE SOLUTAB 30 MG PO SCH (08:10)
[2017-07-15] MEDS: GABAPENTIN 400 MG CAP PO SCH ×3 (08:10→21:48)
[2017-07-15] MEDS: ASPIRIN 81 MG ECTAB PO SCH (08:10)
[2017-07-15] MEDS: MYCOPHENOLATE MOFETIL 250 MG CAP (CELLCEPT) PO SCH ×2 (08:10→21:49)
[2017-07-15] MEDS: CEROVITE ADV FORMULA TAB PO SCH ×2 (08:11→21:48)
[2017-07-15] MEDS: ISOSORBIDE MONONITRATE 30 MG TABCR PO SCH (08:11)
[2017-07-15] MEDS: BACLOFEN 10 MG TAB PO SCH ×3 (08:11→21:48)
[2017-07-15] MEDS: ROSUVASTATIN CALCIUM 10 MG TAB PO SCH (08:12)
[2017-07-15] MEDS: LISINOPRIL 5 MG TAB PO SCH (08:12)
[2017-07-15] MEDS: CycloSPORINE (NEORAL) 25 MG CAP PO SCH ×2 (08:12→21:48)
[2017-07-15] MEDS: DULOXETINE (CYMBALTA) 30 MG CAP PO SCH (08:13)
[2017-07-15] MEDS: DICLOFENAC SOD 1% GEL 100 GM TUBE EXT SCH ×4 (08:14→21:48)
[2017-07-15] MEDS: INSULIN GLARGINE SOLOSTAR 100 UNITS/ML 3 ML PEN SC SCH (08:16)
[2017-07-15] MEDS: HEPARIN SOD 5000 UNIT/0.5 ML CARP SQ SCH ×3 (08:16→21:00)
[2017-07-15 15:05] VITALS: BP 134/74; PULSE 67; TEMP 36.4; O2SAT 97
--- NOTE | 2017-07-15 15:11 | Progress Note ---
Subjective Date of Service: Jul 15, 2017. Subjective Pt evaluation today including: conversation w/ patient, physical exam, chart review, lab review pt states she in fine, does not answer additional questions. afebrile. tolerating abx, repeat cultures pending. wbc remains nml. Problem List Medical Problems: (1) Acute diarrhea Status: Acute (2) Acute electrocardiogram changes Status: Acute (3) Acute psychosis Status: Acute (4) Acute renal failure Status: Acute (5) Altered mental status Status: Acute (6) Anxiety Status: Chronic (7) Attention deficit hyperactivity disorder Status: Chronic (8) Back pain Status: Acute (9) CHF (congestive heart failure) Status: Acute (10) Chronic pain Status: Acute (11) Chronic pain Status: Acute (12) Diarrhea Status: Acute (13) Generalized weakness Status: Acute (14) Hyperkalemia Status: Acute (15) Hypothermia Status: Acute (16) Immunosuppression Status: Acute (17) Influenza A Status: Acute (18) Joint pain Status: Acute (19) Joint pain Status: Acute (20) Low back pain Status: Acute (21) Lower abdominal pain Status: Acute (22) Mood disorder Status: Acute (23) Nausea & vomiting Status: Acute (24) Patient refused evaluation Status: Acute (25) Pyelonephritis Status: Acute (26) Refusal of care by patient Status: Acute (27) Renal insufficiency Status: Acute (28) Sepsis Status: Acute (29) Thrombocytopenia Status: Acute (30) Urinary tract infection Status: Acute (31) Weakness Status: Acute Objective Vital Signs Date Time Temp Pulse Resp B/P (MAP) Pulse Ox O2 Delivery O2 Flow Rate FiO2 07/15/17 15:05 36.4 67 18 134/74 (94) 97 Room Air 07/15/17 08:09 Room Air 07/15/17 07:22 36.7 51 20 157/73 (101) 94 Room Air 07/15/17 00:24 Room Air 07/14/17 23:46 36.3 60 18 130/75 (93) 95 Room Air 07/14/17 20:13 Room Air 07/14/17 16:00 93 Room Air Laboratory Results Item Value Date Time Urine Culture - Final Complete 07/10/17 1405 Urine , Clean Catch Escherichia Coli Esbl Blood Culture - Preliminary Resulted 07/10/17 1310 Blood Escherichia Coli Esbl Last 24 Hours Test 07/14/17 16:51 07/14/17 20:09 07/15/17 07:30 07/15/17 11:54 Bedside Glucose 185 mg/dl 210 mg/dl 133 mg/dl 262 mg/dl Assessment and Plan (1) E. coli septicemia Assessment & Plan: continue ertapenem, will need 14 days. follow repeat cultures. (2) UTI (urinary tract infection)
[2017-07-15 16:00] VITALS: O2SAT 97
[2017-07-15] MEDS: ERTAPENEM IV 1 GM in SODIUM CHLOR 0.9% AD-VAN 50ML IV SCH (17:24)
[2017-07-15] MEDS: TEMAZEPAM 15 MG CAP PO SCH (21:49)
[2017-07-15 23:46] VITALS: BP 166/79; PULSE 56; TEMP 36.6; O2SAT 97
[2017-07-16 07:12] VITALS: BP 161/89; PULSE 57; TEMP 36.4; O2SAT 94
[2017-07-16 08:00] VITALS: PULSE 65; O2SAT 94
[2017-07-16] MEDS: DICLOFENAC SOD 1% GEL 100 GM TUBE EXT SCH ×6 (08:00→21:52)
[2017-07-16] MEDS: ROSUVASTATIN CALCIUM 10 MG TAB PO SCH (08:01)
[2017-07-16] MEDS: CEROVITE ADV FORMULA TAB PO SCH ×2 (08:01→21:36)
[2017-07-16] MEDS: GABAPENTIN 400 MG CAP PO SCH ×3 (08:02→21:36)
[2017-07-16] MEDS: BACLOFEN 10 MG TAB PO SCH ×3 (08:02→21:36)
[2017-07-16] MEDS: ASPIRIN 81 MG ECTAB PO SCH (08:02)
[2017-07-16] MEDS: MYCOPHENOLATE MOFETIL 250 MG CAP (CELLCEPT) PO SCH ×2 (08:03→21:35)
[2017-07-16] MEDS: ISOSORBIDE MONONITRATE 30 MG TABCR PO SCH (08:03)
[2017-07-16] MEDS: LISINOPRIL 5 MG TAB PO SCH (08:04)
[2017-07-16] MEDS: CycloSPORINE (NEORAL) 25 MG CAP PO SCH ×2 (08:04→21:37)
[2017-07-16] MEDS: DULOXETINE (CYMBALTA) 30 MG CAP PO SCH (08:04)
[2017-07-16] MEDS: HEPARIN SOD 5000 UNIT/0.5 ML CARP SQ SCH ×2 (08:06→21:00)
--- NOTE | 2017-07-16 08:17 | Progress Note ---
Subjective Date of Service: Jul 15, 2017. Subjective Late input Patient was seen on July 15 2017. Patient only complaint is that she would like to be discharged soon. She states that she understands that she requires IV antibiotics. Problem List Medical Problems: (1) Acute diarrhea Status: Acute (2) Acute electrocardiogram changes Status: Acute (3) Acute psychosis Status: Acute (4) Acute renal failure Status: Acute (5) Altered mental status Status: Acute (6) Anxiety Status: Chronic (7) Attention deficit hyperactivity disorder Status: Chronic (8) Back pain Status: Acute (9) CHF (congestive heart failure) Status: Acute (10) Chronic pain Status: Acute (11) Chronic pain Status: Acute (12) Diarrhea Status: Acute (13) Generalized weakness Status: Acute (14) Hyperkalemia Status: Acute (15) Hypothermia Status: Acute (16) Immunosuppression Status: Acute (17) Influenza A Status: Acute (18) Joint pain Status: Acute (19) Joint pain Status: Acute (20) Low back pain Status: Acute (21) Lower abdominal pain Status: Acute (22) Mood disorder Status: Acute (23) Nausea & vomiting Status: Acute (24) Patient refused evaluation Status: Acute (25) Pyelonephritis Status: Acute (26) Refusal of care by patient Status: Acute (27) Renal insufficiency Status: Acute (28) Sepsis Status: Acute (29) Thrombocytopenia Status: Acute (30) Urinary tract infection Status: Acute (31) Weakness Status: Acute Review of Systems Constitutional: No fever, No chills, No weakness, No fatigue Cardiac: No chest pain, No edema Abdomen: No pain, No nausea, No vomiting, No diarrhea Neurologic: + weakness, No memory loss, No paralysis Psychiatric: + depression symptoms, + anhedonism Objective Vital Signs Date Time Temp Pulse Resp B/P (MAP) Pulse Ox O2 Delivery O2 Flow Rate FiO2 07/16/17 08:00 65 07/16/17 07:12 36.4 57 20 161/89 (113) 94 Room Air 07/16/17 00:19 Room Air 07/15/17 23:46 36.6 56 16 166/79 (108) 97 Room Air 07/15/17 16:00 97 Room Air 07/15/17 15:05 36.4 67 18 134/74 (94) 97 Room Air Physical Exam Comments: General Appearance: WD/WN, + mild distress Eyes: normal inspection, sclerae normal Neck: supple, no JVD Respiratory/Chest: chest non-tender, lungs clear, normal breath sounds Cardiovascular: regular rate, rhythm, no murmur Abdomen: normal bowel sounds, non tender, soft Neurologic/Psychiatric: alert, + depressed affect Laboratory Results Last 24 Hours Test 07/15/17 11:54 07/15/17 16:41 07/15/17 20:58 07/16/17 07:16 Bedside Glucose 262 mg/dl 109 mg/dl 204 mg/dl 107 mg/dl Test 07/16/17 07:32 Assessment and Plan Pt presented with generalized weakness and concern for pyelonephritis she is fond to have MRR UTI, the pt is immuno suppressed with a transplanted kidney, with PMHx of Systolic CHF, T2DM, CAD with GA, CKD Stage III, TAMARA, SLE, Schizoaffective Disorder, and Borderline Personality 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 coli - NSS at 75 mL/hr and monitor for volume overload with daily weights and I&Os - Cyclosporine 50 mg BID and Cellcept 250 mg BID - this has been a recurrent issue for her will Have ID involved -Will continue on ertapenem for 14 days. -will f/u repeat blood cultures Generalized Weakness: secondary to hydration and illness, unclear if affect is secondary to metabolic encephalopathy or psychiatric underlying illness, she seems to be disconnected and not generally oob will not have PT/OT as she refused Despite this will obtain PT/OT consult. Chronic Systolic CHF and HTN: remains compensated with treatment with Lisinopril 5 mg daily Elevated Troponin with H/O CAD with GA:,is not acs, - ASA 81 mg daily, Imdur 60 mg daily, Crestor 5 mg daily T2DM controlled while here with compliance and diet - Lantus 20 units SC daily and SSI; Hold Victoza CKD Stage III: continue renal dosing of antibiotics and other meds Schizoaffective Disorder/Borderline Personality Disorder: affects her interaction with staff - Cymbalta 30 mg daily DVT Prophylaxis: Heparin, renal dosed Code Status: DO NOT RESUSCITATE Continued [facility] stay due to: multiple IV medications needed Discharge planning: uncertain
[2017-07-16 08:44] LABS: CREATININE 1.35 mg/dl (0.60-1.20)
[2017-07-16] MEDS: INSULIN ASPART 100 UNITS/ML 3 ML PEN SC SCH ×4 (08:56→21:42)
[2017-07-16] MEDS: INSULIN GLARGINE SOLOSTAR 100 UNITS/ML 3 ML PEN SC SCH (08:56)
[2017-07-16] MEDS: LANSOPRAZOLE SOLUTAB 30 MG PO SCH (10:15)
--- NOTE | 2017-07-16 11:18 | Progress Note ---
Subjective Date of Service: Jul 16, 2017. Subjective Pt evaluation today including: conversation w/ patient, physical exam, chart review, review of studies pt seen in followup, doing well. tolerating abx. remains afebrile. repeat blood cultures pending. wbc nml. states she is fine, denies any complaints. denies abd pain, all remaining ros limited but negative. Problem List Medical Problems: (1) Acute diarrhea Status: Acute (2) Acute electrocardiogram changes Status: Acute (3) Acute psychosis Status: Acute (4) Acute renal failure Status: Acute (5) Altered mental status Status: Acute (6) Anxiety Status: Chronic (7) Attention deficit hyperactivity disorder Status: Chronic (8) Back pain Status: Acute (9) CHF (congestive heart failure) Status: Acute (10) Chronic pain Status: Acute (11) Chronic pain Status: Acute (12) Diarrhea Status: Acute (13) Generalized weakness Status: Acute (14) Hyperkalemia Status: Acute (15) Hypothermia Status: Acute (16) Immunosuppression Status: Acute (17) Influenza A Status: Acute (18) Joint pain Status: Acute (19) Joint pain Status: Acute (20) Low back pain Status: Acute (21) Lower abdominal pain Status: Acute (22) Mood disorder Status: Acute (23) Nausea & vomiting Status: Acute (24) Patient refused evaluation Status: Acute (25) Pyelonephritis Status: Acute (26) Refusal of care by patient Status: Acute (27) Renal insufficiency Status: Acute (28) Sepsis Status: Acute (29) Thrombocytopenia Status: Acute (30) Urinary tract infection Status: Acute (31) Weakness Status: Acute Objective Vital Signs Date Time Temp Pulse Resp B/P (MAP) Pulse Ox O2 Delivery O2 Flow Rate FiO2 07/16/17 08:00 65 07/16/17 08:00 94 Room Air 07/16/17 07:12 36.4 57 20 161/89 (113) 94 Room Air 07/16/17 00:19 Room Air 07/15/17 23:46 36.6 56 16 166/79 (108) 97 Room Air 07/15/17 16:00 97 Room Air 07/15/17 15:05 36.4 67 18 134/74 (94) 97 Room Air Physical Exam General Appearance: WD/WN, no apparent distress Eyes: normal inspection Neck: supple Respiratory/Chest: lungs clear, + decreased breath sounds Cardiovascular: regular rate, rhythm, no edema Abdomen: soft Extremities: non-tender, no pedal edema Neurologic/Psychiatric: alert Skin: normal color Laboratory Results Item Value Date Time Urine Culture - Final Complete 07/10/17 1405 Urine , Clean Catch Escherichia Coli Esbl Blood Culture - Final Complete 07/10/17 1310 Blood Escherichia Coli Esbl Last 24 Hours Test 07/15/17 11:54 07/15/17 16:41 07/15/17 20:58 07/16/17 07:16 Bedside Glucose 262 mg/dl 109 mg/dl 204 mg/dl 107 mg/dl Test 07/16/17 07:32 Creatinine 1.35 mg/dl Est Creatinine Clear Calc Drug Dose 46.0 ml/min Estimated GFR () 50.0 Estimated GFR (Non- 43.2 Assessment and Plan (1) E. coli septicemia Assessment & Plan: continue ertapenem, will need 14 days. follow repeat cultures. (2) UTI (urinary tract infection) Continued [facility] stay due to: multiple IV medications needed Discharge planning: uncertain
[2017-07-16] MEDS: ERTAPENEM IV 1 GM in SODIUM CHLOR 0.9% AD-VAN 50ML IV SCH (16:58)
[2017-07-16] MEDS: TEMAZEPAM 15 MG CAP PO SCH (21:35)
--- NOTE | 2017-07-16 22:32 | Progress Note ---
Subjective Date of Service: Jul 16, 2017. Subjective Pt evaluation today including: conversation w/ patient Patient does not provide significant history today. Problem List Medical Problems: (1) Acute diarrhea Status: Acute (2) Acute electrocardiogram changes Status: Acute (3) Acute psychosis Status: Acute (4) Acute renal failure Status: Acute (5) Altered mental status Status: Acute (6) Anxiety Status: Chronic (7) Attention deficit hyperactivity disorder Status: Chronic (8) Back pain Status: Acute (9) CHF (congestive heart failure) Status: Acute (10) Chronic pain Status: Acute (11) Chronic pain Status: Acute (12) Diarrhea Status: Acute (13) Generalized weakness Status: Acute (14) Hyperkalemia Status: Acute (15) Hypothermia Status: Acute (16) Immunosuppression Status: Acute (17) Influenza A Status: Acute (18) Joint pain Status: Acute (19) Joint pain Status: Acute (20) Low back pain Status: Acute (21) Lower abdominal pain Status: Acute (22) Mood disorder Status: Acute (23) Nausea & vomiting Status: Acute (24) Patient refused evaluation Status: Acute (25) Pyelonephritis Status: Acute (26) Refusal of care by patient Status: Acute (27) Renal insufficiency Status: Acute (28) Sepsis Status: Acute (29) Thrombocytopenia Status: Acute (30) Urinary tract infection Status: Acute (31) Weakness Status: Acute Review of Systems Patient does not provide ros today. All Other Systems: Reviewed and Negative Medications Current Inpatient Medications Medications (Trade) Dose Ordered Sig/Suyapa Route Start Time Stop Time Status Last Admin Dose Admin Acetaminophen (Tylenol Tab) 650 mg Q4H PRN PO 07/10/17 16:15 08/09/17 16:14 07/11/17 03:45 650 MG Al Hydrox/Mg Hydrox/Simethicone (Maalox Max Susp) 15 ml Q4H PRN PO 07/10/17 16:15 08/09/17 16:14 Magnesium Hydroxide (Milk Of Magnesia Susp) 30 ml Q12H PRN PO 07/10/17 16:15 08/09/17 16:14 Ondansetron HCl (Zofran Inj) 4 mg Q6H PRN IV 07/10/17 16:15 08/09/17 16:14 Aspirin (Ecotrin Tab) 81 mg QAM PO 07/11/17 09:00 08/10/17 08:59 07/16/17 08:02 81 MG Polyethylene (Miralax Powder Packet) 17 gm DAILY PRN PO 07/10/17 16:15 08/09/17 16:14 Baclofen (Lioresal Tab) 10 mg TID PO 07/10/17 21:00 08/09/17 20:59 07/16/17 21:36 10 MG Cyclosporine (Neoral Cap) 50 mg BID PO 07/10/17 21:00 08/09/17 20:59 07/16/17 21:37 50 MG Duloxetine HCl (Cymbalta Cap) 30 mg DAILY PO 07/11/17 09:00 08/10/17 08:59 07/16/17 08:04 30 MG Famotidine (Pepcid Tab) 20 mg BID PRN PO 07/10/17 21:00 08/09/17 20:59 07/11/17 08:30 20 MG Gabapentin (Neurontin Cap) 400 mg TID PO 07/10/17 21:00 08/09/17 20:59 07/16/17 21:36 400 MG Insulin Glargine (Lantus Solostar Pen) 20 units QAM SC 07/11/17 09:00 08/10/17 08:59 07/16/17 08:56 20 UNITS Isosorbide Mononitrate (Imdur Ext Rel Tab) 60 mg QAM PO 07/11/17 09:00 08/10/17 08:59 07/16/17 08:03 60 MG Lisinopril (Zestril Tab) 5 mg DAILY PO 07/11/17 09:00 08/10/17 08:59 07/16/17 08:04 5 MG Mycophenolate Mofetil (Cellcept Cap) 250 mg BID PO 07/10/17 21:00 08/09/17 20:59 07/16/17 21:35 250 MG Multivitamins/ Minerals (Multivitamin W/ Minerals Tab) 1 tab BID PO 07/10/17 21:00 08/09/17 20:59 07/16/17 21:36 1 TAB Rosuvastatin Calcium (Crestor Tab) 5 mg DAILY PO 07/11/17 09:00 08/10/17 08:59 07/16/17 08:01 5 MG Temazepam (Restoril Cap) 15 mg HS PO 07/10/17 21:00 08/09/17 20:59 07/16/17 21:35 15 MG Lansoprazole (Prevacid Solutab) 30 mg DAILY PO 07/11/17 09:00 08/10/17 08:59 07/16/17 10:15 30 MG Diclofenac Sodium (Voltaren 1% Top Gel) 1 appln QID EXT 07/10/17 21:00 08/09/17 20:59 07/16/17 12:30 1 APPLN Ertapenem (Consult) 1 ea UD PRN N/A 07/10/17 16:35 08/09/17 16:34 Miscellaneous (Iv Fluids Completed) 1 ea PRN PRN N/A 07/10/17 17:15 07/10/18 17:14 Insulin Aspart (novoLOG ASPART) SLIDING SCALE If C... ACHS SC 07/10/17 21:00 08/09/17 20:59 07/16/17 12:34 5 UNITS Glucose (Glucose 40% Gel) 15-30 GRAMS 15 GRAMS... UD PRN PO 07/10/17 17:15 08/09/17 17:14 Glucose (Glucose Chew Tab) 4-8 Tablets 4 Tabl... UD PRN PO 07/10/17 17:15 08/09/17 17:14 Dextrose (Dextrose 50% 50ML Syringe) 25-50ML OF 50% DW IV FOR... UD PRN IV 07/10/17 17:15 08/09/17 17:14 Glucagon (Glucagon Inj) 1 mg UD PRN SQ 07/10/17 17:15 08/09/17 17:14 Heparin Sodium (Porcine) (Heparin Sq 5000 Unit/0.5ml) 5,000 unit Q12 SQ 07/10/17 21:00 08/09/17 20:59 Ertapenem 1000 mg/ Sodium Chloride 60 ml @ 100 mls/hr Q24H IV 07/10/17 17:30 07/20/17 17:29 07/16/17 16:58 100 MLS/HR Objective Vital Signs Date Time Temp Pulse Resp B/P (MAP) Pulse Ox O2 Delivery O2 Flow Rate FiO2 07/16/17 16:40 Room Air 07/16/17 08:00 65 07/16/17 08:00 94 Room Air 07/16/17 07:12 36.4 57 20 161/89 (113) 94 Room Air 07/16/17 00:19 Room Air 07/15/17 23:46 36.6 56 16 166/79 (108) 97 Room Air Physical Exam Comments: General Appearance: WD/WN, + mild distress Eyes: normal inspection, sclerae normal Neck: supple, no JVD Respiratory/Chest: chest non-tender, lungs clear, normal breath sounds Cardiovascular: regular rate, rhythm, no murmur Abdomen: normal bowel sounds, non tender, soft Neurologic/Psychiatric: alert, + depressed affect Laboratory Results Last 24 Hours Test 07/16/17 07:16 07/16/17 07:32 07/16/17 11:40 Bedside Glucose 107 mg/dl 116 mg/dl Creatinine 1.35 mg/dl Est Creatinine Clear Calc Drug Dose 46.0 ml/min Estimated GFR () 50.0 Estimated GFR (Non- 43.2 Assessment and Plan Pt presented with generalized weakness and concern for pyelonephritis she is fuond to have MRR UTI, the pt is immuno suppressed with a transplanted kidney, with PMHx of Systolic CHF, T2DM, CAD with PR, CKD Stage III, TAMARA, SLE, Schizoaffective Disorder, and Borderline Personality 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 coli - NSS at 75 mL/hr and monitor for volume overload with daily weights and I&Os - Cyclosporine 50 mg BID and Cellcept 250 mg BID - this has been a recurrent issue for her will Have ID involved -Will continue on ertapenem for 14 days. -will f/u repeat blood cultures. These cultures are not out today. Generalized Weakness: secondary to hydration and illness, unclear if affect is secondary to metabolic encephalopathy or psychiatric underlying illness, she seems to be disconnected and not generally oob will not have PT/OT as she refused Despite this will obtain PT/OT consult. Patient sadly refused this when PT team saw patient. Chronic Systolic CHF and HTN: remains compensated with treatment with Lisinopril 5 mg daily Elevated Troponin with H/O CAD with PR:,is not acs, - ASA 81 mg daily, Imdur 60 mg daily, Crestor 5 mg daily T2DM controlled while here with compliance and diet - Lantus 20 units SC daily and SSI; Hold Victoza CKD Stage III: continue renal dosing of antibiotics and other meds Schizoaffective Disorder/Borderline Personality Disorder: affects her interaction with staff - Cymbalta 30 mg daily DVT Prophylaxis: Heparin, renal dosed Code Status: DO NOT RESUSCITATE Continued [facility] stay due to: multiple IV medications needed Discharge planning: uncertain
[2017-07-16 23:10] VITALS: BP 153/84; PULSE 71; TEMP 36.5; O2SAT 95
[2017-07-17] MEDS: ACETAMINOPHEN 325 MG TAB PO PRN (03:44)
[2017-07-17] MEDS: INSULIN ASPART 100 UNITS/ML 3 ML PEN SC SCH ×4 (06:30→20:34)
[2017-07-17 07:13] VITALS: BP 163/94; PULSE 65; TEMP 36.6; O2SAT 97
[2017-07-17] MEDS: HEPARIN SOD 5000 UNIT/0.5 ML CARP SQ SCH ×2 (07:25→20:39)
[2017-07-17 08:00] VITALS: O2SAT 97
[2017-07-17] MEDS: ROSUVASTATIN CALCIUM 10 MG TAB PO SCH (08:42)
[2017-07-17] MEDS: MYCOPHENOLATE MOFETIL 250 MG CAP (CELLCEPT) PO SCH ×2 (08:42→20:00)
[2017-07-17] MEDS: BACLOFEN 10 MG TAB PO SCH ×3 (08:42→20:00)
[2017-07-17] MEDS: CycloSPORINE (NEORAL) 25 MG CAP PO SCH ×2 (08:43→20:00)
[2017-07-17] MEDS: DULOXETINE (CYMBALTA) 30 MG CAP PO SCH (08:43)
[2017-07-17] MEDS: GABAPENTIN 400 MG CAP PO SCH ×3 (08:43→20:00)
[2017-07-17] MEDS: ISOSORBIDE MONONITRATE 30 MG TABCR PO SCH (08:43)
[2017-07-17] MEDS: ASPIRIN 81 MG ECTAB PO SCH (08:43)
[2017-07-17] MEDS: LISINOPRIL 5 MG TAB PO SCH (08:43)
[2017-07-17] MEDS: CEROVITE ADV FORMULA TAB PO SCH ×2 (08:43→20:00)
[2017-07-17] MEDS: LANSOPRAZOLE SOLUTAB 30 MG PO SCH (08:44)
[2017-07-17] MEDS: TRAMADOL HCL 50 MG TAB PO PRN ×2 (08:55→16:00)
[2017-07-17] MEDS: INSULIN GLARGINE SOLOSTAR 100 UNITS/ML 3 ML PEN SC SCH (09:03)
--- NOTE | 2017-07-17 11:51 | Clinical Documentation Query ---
CLINICAL DOCUMENTATION QUERY Pt presented with generalized weakness and concern for pyelonephritis she is fuond to have MRR UTI, the pt is immuno suppressed with a transplanted kidney. Diagnosis is documented as pyelonephritis in L Transplant Kidney: MDR E Coli both urine and blood suggesting sirs on presentation. Infectious Disease consult documents patient assessment as E. coli Septicemia. In your clinical opinion is this patient being managed for: ( ) Sepsis due to Escherichia coli ( x) Not Agree ( ) Other explanation of clinical findings (Please Explain. If no explanation given, this would be considered a no response.) ( ) Unable to determine ( ) Need to Discuss (Please call CDS via extension or qliq. If no interaction occurs this is considered a no response.) The medical record reflects the following clinical findings, treatment, and risk factors. Clinical Indicators: As above Treatment:Urine/blood cultures, Cefepime IV, IV hydration, ID consult Risk Factors: UTI, female, immuno suppression Please clarify and document your clinical opinion in the progress notes and discharge summary. Terms such as "probable", "suspected", "likely", "questionable", "possible", or "still to be ruled out" are acceptable. IF IN AGREEMENT, YOU MUST DOCUMENT ABOVE DIAGNOSTIC STATEMENT IN DAILY PROGRESS NOTES AND DISCHARGE SUMMARY. This document is not part of the patient's record. Thank You, Haylie Brown RN [phone]
--- NOTE | 2017-07-17 13:50 | Psychiatric Consultation ---
Consultation Date of Consultation Jul 17, 2017. Identifying Data 57 yo woman with medical conditions listed below, and borderline personality disorder, admitted with a 2 week course of progressive weakness. We are consulted due to statements about wanting to . Information is gathered from the patient and the EHR and considered to be reliable. Chief Complaint "I don't talk to shrinks.". History of Present Illness Well know to our service for borderline personality disorder. Last seen during last hospitalization by the undersigned after she made suicidal statements to someone from a nursing service. Admitted medically now with progressive weakness, MDR e. coli pylenephritis. We are consulted because she has been making statements about wanting to . At the time of my interview, she is more engaging that usual, at least willing to carry on a conversation. She keeps repeating that she has an antibiotic resistant infection, so why should she keep coming back to the hospital. "Everyone dies sometime.". She denies that she is suicidal or that she would take her own life. I attempt to assess the supports she has at home, but she is sarcastic and mocking in her responses. She repeats multiple times that no one cares about her and she won' t have in home help "that is paid to care about me.". She says that she still drives, gets to her appts, to the grocery store. She apparently has at least one friend who can be called on in an emergency, as one of her friends is reported to have driven her to the ER. I talk about mental health treatment and she says that she doesn't believe in meds "they make you drool in the corner ", and doesn't think that therapy is worth anything either. I attempt to get her to express her needs at this time, but she says she has no need, and again becomes sarcastic and mocking. She denies aud/vis hallucinations. Past Psychiatric History Current OP Treatment: no current treatment Prior OP Treatment: psychiatrist, therapist, insurance case manager Prior Psych Hospitalizations: [facility], other Allergies Allergies: Coded Allergies: Penicillins (Verified Allergy, Mild, ITCHY, ANXIETY, 07/10/17) Loperamide (Verified Allergy, Unknown, 07/10/17) Vancomycin (Verified Allergy, Unknown, 07/10/17) Ziprasidone (Verified Allergy, Unknown, itching, 07/10/17) Home Medications Scheduled Aspirin (Aspirin), 81 MG PO DAILY Baclofen (Lioresal), 10 MG PO TID Cyclosporine (Neoral), 50 MG PO BID Dexlansoprazole (Dexilant), 30 MG PO DAILY Diclofenac Sodium (Topical) (Voltaren 1% Top Gel), 1 APPLN EXT UD Duloxetine HCl (Cymbalta), 30 MG PO DAILY Ergocalciferol (Vitamin D 94703 Unit), 1 CAP PO WK Famotidine (Pepcid), 20 MG PO TID Gabapentin (Neurontin), 400 MG PO TID Insulin Glargine (Lantus Solostar), 20 UNITS SC QAM Isosorbide Mononitrate Ext Rel (Imdur Ext Rel), 60 MG PO QAM Liraglutide (Victoza), 1.8 MG SQ DAILYBD Lisinopril (Zestril), 5 MG PO DAILY Multivitamin (Multivitamin), 1 TAB PO DAILY Mycophenolate Mofetil (Cellcept), 250 MG PO BID Ocuvite Preservision (Ocuvite Preservision), 1 TAB PO BID Rosuvastatin Calcium (Crestor), 1 TAB PO DAILY Temazepam (Restoril), 15 MG PO HS Scheduled PRN Nitroglycerin (Nitrostat), 1 TAB SL UD PRN for Chest Pain Family History FH: dementia MOTHER FH: diabetes mellitus SISTER GRANDMOTHER FH: heart disease FATHER MOTHER FH: lung cancer FATHER FH: rheumatoid arthritis SISTER FHx: heart disease Smoking Use Smoking Status: Never Smoker Personal History Lives in: [facility] Education: started college Children: none Review of Systems Unwilling to participate in ROS Examination Vital Signs Vital Signs Past 12 Hours Date Time Temp Pulse Resp B/P (MAP) Pulse Ox O2 Delivery O2 Flow Rate FiO2 07/17/17 08:00 97 Room Air 07/17/17 07:13 36.6 65 18 163/94 (117) 97 Room Air Laboratory Results Last 24 Hours Test 07/17/17 07:30 07/17/17 11:41 Bedside Glucose 100 mg/dl 170 mg/dl Mental Examination During interview pt is: uncooperative Appearance: disheveled Eye contact is: poor Motor behavior is: no abnormal motor movements Speech: other (sarcastic and mocking) Affect: flat Mood is: irritable Thought process: goal directed Thought content: cognitive distortions Suicidal thought are: denied Homicidal thoughts are: denied Hallucinations: denies auditory, denies visual Cognition: memory grossly intact, attention grossly intact, language grossly intact Intelligence estimated to be: average Insight: limited Judgement: limited Impression / Recommendations Impression Psychiatrically, Kecia is a very difficult patient. She knows only one way to communicate her needs and that is through anger and provocation, which pushes people away. These are not traits that we are able to address on a short term inpatient unit. I have encouraged her to express her needs in a way that others can hear and accept, which got me no where. I have also offered to return at any time if she changes her mind about wanting some help. I have no new recommendations other than keeping her on her current dose of meds since she appears willing to take them. Although she is poorly able to abide by the contract, with each hospitalization she should be required to sign the behavioral contract addressing the need for appropriate respectful behavior with all care givers. Recommendations (1) Borderline personality disorder 07/17 - No recommendations for inpatient - Continue cymbalta - Behavioral contract with each admission Dr. Rosa Herndon has personally been involved in the review of this case and development of these recommendations.
--- NOTE | 2017-07-17 14:19 | Progress Note ---
Subjective Date of Service: Jul 17, 2017. Subjective Pt evaluation today including: conversation w/ patient, physical exam, chart review, lab review pt answers few questions, only states "I am fine". tolerating abx, no f/c. no abd pain. repeat cultures negative. psych eval pending. Problem List Medical Problems: (1) Acute diarrhea Status: Acute (2) Acute electrocardiogram changes Status: Acute (3) Acute psychosis Status: Acute (4) Acute renal failure Status: Acute (5) Altered mental status Status: Acute (6) Anxiety Status: Chronic (7) Attention deficit hyperactivity disorder Status: Chronic (8) Back pain Status: Acute (9) CHF (congestive heart failure) Status: Acute (10) Chronic pain Status: Acute (11) Chronic pain Status: Acute (12) Diarrhea Status: Acute (13) Generalized weakness Status: Acute (14) Hyperkalemia Status: Acute (15) Hypothermia Status: Acute (16) Immunosuppression Status: Acute (17) Influenza A Status: Acute (18) Joint pain Status: Acute (19) Joint pain Status: Acute (20) Low back pain Status: Acute (21) Lower abdominal pain Status: Acute (22) Mood disorder Status: Acute (23) Nausea & vomiting Status: Acute (24) Patient refused evaluation Status: Acute (25) Pyelonephritis Status: Acute (26) Refusal of care by patient Status: Acute (27) Renal insufficiency Status: Acute (28) Sepsis Status: Acute (29) Thrombocytopenia Status: Acute (30) Urinary tract infection Status: Acute (31) Weakness Status: Acute Objective Vital Signs Date Time Temp Pulse Resp B/P (MAP) Pulse Ox O2 Delivery O2 Flow Rate FiO2 07/17/17 08:00 97 Room Air 07/17/17 07:13 36.6 65 18 163/94 (117) 97 Room Air 07/16/17 23:59 Room Air 07/16/17 23:10 36.5 71 16 153/84 (107) 95 Room Air 07/16/17 16:40 Room Air Physical Exam General Appearance: WD/WN, no apparent distress Eyes: normal inspection, EOMI Neck: supple Respiratory/Chest: lungs clear, normal breath sounds, no respiratory distress Cardiovascular: regular rate, rhythm, no edema Abdomen: soft Extremities: non-tender, no pedal edema Neurologic/Psychiatric: alert, oriented x 3 Skin: normal color Laboratory Results Item Value Date Time Blood Culture - Final Complete 07/10/17 1310 Blood Escherichia Coli Esbl Urine Culture - Final Complete 07/10/17 1405 Urine , Clean Catch Escherichia Coli Esbl Blood Culture - Preliminary Resulted 07/15/17 1203 Blood NO GROWTH TO DATE. Blood Culture - Preliminary Resulted 07/15/17 1208 Blood NO GROWTH TO DATE. Last 24 Hours Test 07/17/17 07:30 07/17/17 11:41 Bedside Glucose 100 mg/dl 170 mg/dl Assessment and Plan (1) E. coli septicemia Assessment & Plan: continue ertapenem, will need 14 days. follow repeat cultures. (2) UTI (urinary tract infection) Continued [facility] stay due to: multiple IV medications needed Discharge planning: uncertain
[2017-07-17 14:50] VITALS: BP 125/76; PULSE 67; TEMP 36.7; O2SAT 95
[2017-07-17 16:00] VITALS: O2SAT 95
[2017-07-17] MEDS: ERTAPENEM IV 1 GM in SODIUM CHLOR 0.9% AD-VAN 50ML IV SCH (18:10)
[2017-07-17] MEDS: DICLOFENAC SOD 1% GEL 100 GM TUBE EXT SCH (20:00)
[2017-07-17] MEDS: TEMAZEPAM 15 MG CAP PO SCH (22:00)
--- NOTE | 2017-07-17 23:13 | Progress Note ---
Subjective Date of Service: Jul 17, 2017. Subjective Pt evaluation today including: conversation w/ patient, physical exam Patient reports no signifcnat barrientos today. Continues with same level of pain. Problem List Medical Problems: (1) Acute diarrhea Status: Acute (2) Acute electrocardiogram changes Status: Acute (3) Acute psychosis Status: Acute (4) Acute renal failure Status: Acute (5) Altered mental status Status: Acute (6) Anxiety Status: Chronic (7) Attention deficit hyperactivity disorder Status: Chronic (8) Back pain Status: Acute (9) CHF (congestive heart failure) Status: Acute (10) Chronic pain Status: Acute (11) Chronic pain Status: Acute (12) Diarrhea Status: Acute (13) Generalized weakness Status: Acute (14) Hyperkalemia Status: Acute (15) Hypothermia Status: Acute (16) Immunosuppression Status: Acute (17) Influenza A Status: Acute (18) Joint pain Status: Acute (19) Joint pain Status: Acute (20) Low back pain Status: Acute (21) Lower abdominal pain Status: Acute (22) Mood disorder Status: Acute (23) Nausea & vomiting Status: Acute (24) Patient refused evaluation Status: Acute (25) Pyelonephritis Status: Acute (26) Refusal of care by patient Status: Acute (27) Renal insufficiency Status: Acute (28) Sepsis Status: Acute (29) Thrombocytopenia Status: Acute (30) Urinary tract infection Status: Acute (31) Weakness Status: Acute Review of Systems Constitutional: No fever Eyes: No worsening of vision ENT: No hearing loss Cardiac: No chest pain Abdomen: No pain Musculoskeletal: + joint pain All Other Systems: Reviewed and Negative Objective Vital Signs Date Time Temp Pulse Resp B/P (MAP) Pulse Ox O2 Delivery O2 Flow Rate FiO2 07/17/17 16:00 95 Room Air 07/17/17 14:50 36.7 67 18 125/76 (92) 95 Room Air 07/17/17 08:00 97 Room Air 07/17/17 07:13 36.6 65 18 163/94 (117) 97 Room Air 07/16/17 23:59 Room Air Physical Exam Comments: General Appearance: WD/WN, + mild distress Eyes: normal inspection, sclerae normal Neck: supple, no JVD Respiratory/Chest: chest non-tender, lungs clear, normal breath sounds Cardiovascular: regular rate, rhythm, no murmur Abdomen: normal bowel sounds, non tender, soft Neurologic/Psychiatric: alert, + depressed affec Laboratory Results Last 24 Hours Test 07/17/17 07:30 07/17/17 11:41 07/17/17 20:28 Bedside Glucose 100 mg/dl 170 mg/dl 151 mg/dl Assessment and Plan Pt presented with generalized weakness and concern for pyelonephritis she is fuond to have MRR UTI, the pt is immuno suppressed with a transplanted kidney, with PMHx of Systolic CHF, T2DM, CAD with [place], CKD Stage III, TAMARA, SLE, Schizoaffective Disorder, and Borderline Personality Pyelonephritis in L 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 - Ertapenem 500 mg IV daily for renal dosing - review of previous cultures suggests MDR e. coli - NSS at 75 mL/hr and monitor for volume overload with daily weights and I&Os - Cyclosporine 50 mg BID and Cellcept 250 mg BID - this has been a recurrent issue for her will Have ID involved -Will continue on ertapenem for 14 days. -will f/u repeat blood cultures. These cultures are not out today. Generalized Weakness: secondary to hydration and illness, unclear if affect is secondary to metabolic encephalopathy or psychiatric underlying illness, she seems to be disconnected and not generally oob will not have PT/OT as she refused Despite this will obtain PT/OT consult. Patient sadly refused this when PT team saw patient. Chronic Systolic CHF and HTN: remains compensated with treatment with Lisinopril 5 mg daily Elevated Troponin with H/O CAD with [place]:,is not acs, - ASA 81 mg daily, Imdur 60 mg daily, Crestor 5 mg daily T2DM controlled while here with compliance and diet - Lantus 20 units SC daily and SSI; Hold Victoza CKD Stage III: continue renal dosing of antibiotics and other meds Schizoaffective Disorder/Borderline Personality Disorder: affects her interaction with staff - Cymbalta 30 mg daily DVT Prophylaxis: Heparin, renal dosed Code Status: DO NOT RESUSCITATE Continued [facility] stay due to: multiple IV medications needed Discharge planning: uncertain
[2017-07-18] MEDS: INSULIN ASPART 100 UNITS/ML 3 ML PEN SC SCH ×4 (06:30→20:56)
[2017-07-18] MEDS: HEPARIN SOD 5000 UNIT/0.5 ML CARP SQ SCH ×2 (07:01→20:50)
[2017-07-18 07:09] VITALS: BP 147/80; PULSE 59; TEMP 36.5; O2SAT 94
[2017-07-18] MEDS: GABAPENTIN 400 MG CAP PO SCH ×3 (07:41→20:50)
[2017-07-18] MEDS: BACLOFEN 10 MG TAB PO SCH ×3 (07:41→20:47)
[2017-07-18] MEDS: LISINOPRIL 5 MG TAB PO SCH (07:41)
[2017-07-18] MEDS: ROSUVASTATIN CALCIUM 10 MG TAB PO SCH (07:41)
[2017-07-18] MEDS: DICLOFENAC SOD 1% GEL 100 GM TUBE EXT SCH ×4 (07:41→20:47)
[2017-07-18] MEDS: ISOSORBIDE MONONITRATE 30 MG TABCR PO SCH (07:41)
[2017-07-18] MEDS: CycloSPORINE (NEORAL) 25 MG CAP PO SCH ×2 (07:41→20:48)
[2017-07-18] MEDS: ASPIRIN 81 MG ECTAB PO SCH (07:42)
[2017-07-18] MEDS: LANSOPRAZOLE SOLUTAB 30 MG PO SCH (07:42)
[2017-07-18] MEDS: DULOXETINE (CYMBALTA) 30 MG CAP PO SCH (07:42)
[2017-07-18] MEDS: MYCOPHENOLATE MOFETIL 250 MG CAP (CELLCEPT) PO SCH ×2 (07:42→20:47)
[2017-07-18] MEDS: CEROVITE ADV FORMULA TAB PO SCH ×2 (07:42→20:47)
[2017-07-18 08:00] VITALS: O2SAT 94
[2017-07-18] MEDS: INSULIN GLARGINE SOLOSTAR 100 UNITS/ML 3 ML PEN SC SCH (08:38)
--- NOTE | 2017-07-18 10:43 | Progress Note ---
Subjective Date of Service: Jul 18, 2017. Subjective Pt evaluation today including: conversation w/ patient, physical exam, chart review, lab review pt repeats "what do you want?" throughout exam. denies abd pain, no f/c. tolerating abx. repeat blood cultures negative, remaining ros reviewed and are negative, but limited. Problem List Medical Problems: (1) Acute diarrhea Status: Acute (2) Acute electrocardiogram changes Status: Acute (3) Acute psychosis Status: Acute (4) Acute renal failure Status: Acute (5) Altered mental status Status: Acute (6) Anxiety Status: Chronic (7) Attention deficit hyperactivity disorder Status: Chronic (8) Back pain Status: Acute (9) CHF (congestive heart failure) Status: Acute (10) Chronic pain Status: Acute (11) Chronic pain Status: Acute (12) Diarrhea Status: Acute (13) Generalized weakness Status: Acute (14) Hyperkalemia Status: Acute (15) Hypothermia Status: Acute (16) Immunosuppression Status: Acute (17) Influenza A Status: Acute (18) Joint pain Status: Acute (19) Joint pain Status: Acute (20) Low back pain Status: Acute (21) Lower abdominal pain Status: Acute (22) Mood disorder Status: Acute (23) Nausea & vomiting Status: Acute (24) Patient refused evaluation Status: Acute (25) Pyelonephritis Status: Acute (26) Refusal of care by patient Status: Acute (27) Renal insufficiency Status: Acute (28) Sepsis Status: Acute (29) Thrombocytopenia Status: Acute (30) Urinary tract infection Status: Acute (31) Weakness Status: Acute Objective Vital Signs Date Time Temp Pulse Resp B/P (MAP) Pulse Ox O2 Delivery O2 Flow Rate FiO2 07/18/17 08:00 94 Room Air 07/18/17 07:09 36.5 59 18 147/80 (102) 94 Room Air 07/17/17 23:59 Room Air 07/17/17 16:00 95 Room Air 07/17/17 14:50 36.7 67 18 125/76 (92) 95 Room Air Physical Exam General Appearance: WD/WN, no apparent distress Eyes: normal inspection, EOMI Neck: supple Respiratory/Chest: lungs clear, normal breath sounds, no respiratory distress Cardiovascular: no edema Abdomen: soft Extremities: non-tender Neurologic/Psychiatric: alert Skin: normal color Laboratory Results Item Value Date Time Blood Culture - Preliminary Resulted 07/15/17 1208 Blood NO GROWTH TO DATE. Blood Culture - Preliminary Resulted 07/15/17 1203 Blood NO GROWTH TO DATE. Urine Culture - Final Complete 07/10/17 1405 Urine , Clean Catch Escherichia Coli Esbl Blood Culture - Final Complete 07/10/17 1310 Blood Escherichia Coli Esbl Last 24 Hours Test 07/17/17 11:41 07/17/17 20:28 07/18/17 07:37 Bedside Glucose 170 mg/dl 151 mg/dl 136 mg/dl Assessment and Plan (1) E. coli septicemia Assessment & Plan: continue ertapenem, will need 14 days. follow repeat cultures negative to date. (2) UTI (urinary tract infection) Continued [facility] stay due to: multiple IV medications needed Discharge planning: uncertain
[2017-07-18 15:59] VITALS: BP 121/75; PULSE 59; TEMP 36.6; O2SAT 93
[2017-07-18] MEDS: ERTAPENEM IV 1 GM in SODIUM CHLOR 0.9% AD-VAN 50ML IV SCH (17:18)
[2017-07-18] MEDS: TEMAZEPAM 15 MG CAP PO SCH (20:56)
[2017-07-18] MEDS: TRAMADOL HCL 50 MG TAB PO PRN (20:57)
--- NOTE | 2017-07-18 22:00 | Progress Note ---
Subjective Date of Service: Jul 18, 2017. Subjective Had long discussion with patient today. Patient suprisingly gave me a conversation SHe asked what the plan is. She is hoping for a treatment that will decrease her recurrent urinary tract infections She states that next time she would like to stop seeking help and at home She is also complaing of lower back pain and left shoulder pain. Patient does not want to try an injection. She nquires about pain medicien. Problem List Medical Problems: (1) Acute diarrhea Status: Acute (2) Acute electrocardiogram changes Status: Acute (3) Acute psychosis Status: Acute (4) Acute renal failure Status: Acute (5) Altered mental status Status: Acute (6) Anxiety Status: Chronic (7) Attention deficit hyperactivity disorder Status: Chronic (8) Back pain Status: Acute (9) CHF (congestive heart failure) Status: Acute (10) Chronic pain Status: Acute (11) Chronic pain Status: Acute (12) Diarrhea Status: Acute (13) Generalized weakness Status: Acute (14) Hyperkalemia Status: Acute (15) Hypothermia Status: Acute (16) Immunosuppression Status: Acute (17) Influenza A Status: Acute (18) Joint pain Status: Acute (19) Joint pain Status: Acute (20) Low back pain Status: Acute (21) Lower abdominal pain Status: Acute (22) Mood disorder Status: Acute (23) Nausea & vomiting Status: Acute (24) Patient refused evaluation Status: Acute (25) Pyelonephritis Status: Acute (26) Refusal of care by patient Status: Acute (27) Renal insufficiency Status: Acute (28) Sepsis Status: Acute (29) Thrombocytopenia Status: Acute (30) Urinary tract infection Status: Acute (31) Weakness Status: Acute Review of Systems All Other Systems: Reviewed and Negative Medications Current Inpatient Medications Medications (Trade) Dose Ordered Sig/Suy[place] Route Start Time Stop Time Status Last Admin Dose Admin Acetaminophen (Tylenol Tab) 650 mg Q4H PRN PO 07/10/17 16:15 08/09/17 16:14 07/17/17 03:44 650 MG Al Hydrox/Mg Hydrox/Simethicone (Maalox Max Susp) 15 ml Q4H PRN PO 07/10/17 16:15 08/09/17 16:14 Magnesium Hydroxide (Milk Of Magnesia Susp) 30 ml Q12H PRN PO 07/10/17 16:15 08/09/17 16:14 Ondansetron HCl (Zofran Inj) 4 mg Q6H PRN IV 07/10/17 16:15 08/09/17 16:14 Aspirin (Ecotrin Tab) 81 mg QAM PO 07/11/17 09:00 08/10/17 08:59 07/18/17 07:42 81 MG Polyethylene (Miralax Powder Packet) 17 gm DAILY PRN PO 07/10/17 16:15 08/09/17 16:14 Baclofen (Lioresal Tab) 10 mg TID PO 07/10/17 21:00 08/09/17 20:59 07/18/17 20:47 10 MG Cyclosporine (Neoral Cap) 50 mg BID PO 07/10/17 21:00 08/09/17 20:59 07/18/17 20:48 50 MG Famotidine (Pepcid Tab) 20 mg BID PRN PO 07/10/17 21:00 08/09/17 20:59 07/11/17 08:30 20 MG Gabapentin (Neurontin Cap) 400 mg TID PO 07/10/17 21:00 08/09/17 20:59 07/18/17 20:50 400 MG Insulin Glargine (Lantus Solostar Pen) 20 units QAM SC 07/11/17 09:00 08/10/17 08:59 07/18/17 08:38 20 UNITS Isosorbide Mononitrate (Imdur Ext Rel Tab) 60 mg QAM PO 07/11/17 09:00 08/10/17 08:59 07/18/17 07:41 60 MG Lisinopril (Zestril Tab) 5 mg DAILY PO 07/11/17 09:00 08/10/17 08:59 07/18/17 07:41 5 MG Mycophenolate Mofetil (Cellcept Cap) 250 mg BID PO 07/10/17 21:00 08/09/17 20:59 07/18/17 20:47 250 MG Multivitamins/ Minerals (Multivitamin W/ Minerals Tab) 1 tab BID PO 07/10/17 21:00 08/09/17 20:59 07/18/17 20:47 1 TAB Rosuvastatin Calcium (Crestor Tab) 5 mg DAILY PO 07/11/17 09:00 08/10/17 08:59 07/18/17 07:41 5 MG Temazepam (Restoril Cap) 15 mg HS PO 07/10/17 21:00 08/09/17 20:59 07/18/17 20:56 15 MG Lansoprazole (Prevacid Solutab) 30 mg DAILY PO 07/11/17 09:00 08/10/17 08:59 07/18/17 07:42 30 MG Diclofenac Sodium (Voltaren 1% Top Gel) 1 appln QID EXT 07/10/17 21:00 08/09/17 20:59 07/18/17 11:47 1 APPLN Ertapenem (Consult) 1 ea UD PRN N/A 07/10/17 16:35 07/23/17 23:59 Miscellaneous (Iv Fluids Completed) 1 ea PRN PRN N/A 07/10/17 17:15 07/10/18 17:14 Insulin Aspart (novoLOG ASPART) SLIDING SCALE If C... ACHS SC 07/10/17 21:00 08/09/17 20:59 07/18/17 17:59 2 UNITS Glucose (Glucose 40% Gel) 15-30 GRAMS 15 GRAMS... UD PRN PO 07/10/17 17:15 08/09/17 17:14 Glucose (Glucose Chew Tab) 4-8 Tablets 4 Tabl... UD PRN PO 07/10/17 17:15 08/09/17 17:14 Dextrose (Dextrose 50% 50ML Syringe) 25-50ML OF 50% DW IV FOR... UD PRN IV 07/10/17 17:15 08/09/17 17:14 Glucagon (Glucagon Inj) 1 mg UD PRN SQ 07/10/17 17:15 08/09/17 17:14 Heparin Sodium (Porcine) (Heparin Sq 5000 Unit/0.5ml) 5,000 unit Q12 SQ 07/10/17 21:00 08/09/17 20:59 Ertapenem 1000 mg/ Sodium Chloride 60 ml @ 100 mls/hr Q24H IV 07/10/17 17:30 07/23/17 23:59 07/18/17 17:18 100 MLS/HR Tramadol HCl (Ultram Tab) 50 mg Q4H PRN PO 07/17/17 05:15 08/16/17 05:14 07/18/17 20:57 50 MG Lidocaine (Lidoderm Patch 5%) 1 patch QAM TD 07/19/17 08:00 08/18/17 07:59 Miscellaneous (Remove Lidoderm Patch) 1 ea DAILY@21 N/A 07/18/17 21:00 08/17/17 20:59 Duloxetine HCl (Cymbalta Cap) 60 mg DAILY PO 07/19/17 08:00 08/10/17 08:59 Objective Vital Signs Date Time Temp Pulse Resp B/P (MAP) Pulse Ox O2 Delivery O2 Flow Rate FiO2 07/18/17 16:10 Room Air 07/18/17 15:59 36.6 59 18 121/75 (90) 93 Room Air 07/18/17 08:00 94 Room Air 07/18/17 07:09 36.5 59 18 147/80 (102) 94 Room Air 07/17/17 23:59 Room Air Physical Exam Comments: General Appearance: WD/WN, + no distress Eyes: normal inspection, sclerae normal Neck: supple, no JVD Respiratory/Chest: chest non-tender, lungs clear, normal breath sounds Cardiovascular: regular rate, rhythm, no murmur Abdomen: normal bowel sounds, non tender, soft Neurologic/Psychiatric: alert, + depressed affec Laboratory Results Last 24 Hours Test 07/18/17 07:37 07/18/17 11:33 07/18/17 16:58 Bedside Glucose 136 mg/dl 122 mg/dl 165 mg/dl Assessment and Plan Pt presented with generalized weakness and concern for pyelonephritis she is fuond to have MRR UTI, the pt is immuno suppressed with a transplanted kidney, with PMHx of Systolic CHF, T2DM, CAD with [place], CKD Stage III, TAMARA, SLE, Schizoaffective Disorder, and Borderline Personality Pyelonephritis in L Transplant Kidney: MDR E Coli both urine and blood suggesting sirs on presentation, is sensitive to 'penems -added pain medicine: started lidoerm patch. - Ertapenem 500 mg IV daily for renal dosing - review of previous cultures suggests MDR e. coli - NSS at 75 mL/hr and monitor for volume overload with daily weights and I&Os - Cyclosporine 50 mg BID and Cellcept 250 mg BID - this has been a recurrent issue for her will Have ID involved -Will continue on ertapenem for 14 days. -will f/u repeat blood cultures. These cultures are not out today. Generalized Weakness: secondary to hydration and illness, unclear if affect is secondary to metabolic encephalopathy or psychiatric underlying illness, she seems to be disconnected and not generally oob will not have PT/OT as she refused Despite this will obtain PT/OT consult. Patient sadly refused this when PT team saw patient. Chronic Systolic CHF and HTN: remains compensated with treatment with Lisinopril 5 mg daily Elevated Troponin with H/O CAD with [place]:,is not acs, - ASA 81 mg daily, Imdur 60 mg daily, Crestor 5 mg daily T2DM controlled while here with compliance and diet - Lantus 20 units SC daily and SSI; Hold Victoza CKD Stage III: continue renal dosing of antibiotics and other meds Schizoaffective Disorder/Borderline Personality Disorder: affects her interaction with staff - Cymbalta 30 mg daily DVT Prophylaxis: Heparin, renal dosed Code Status: DO NOT RESUSCITATE Continued [facility] stay due to: multiple IV medications needed Discharge planning: uncertain
[2017-07-18 23:13] VITALS: BP 131/77; PULSE 57; TEMP 36.8; O2SAT 98
[2017-07-19 07:37] VITALS: BP 147/86; PULSE 57; TEMP 36.5; O2SAT 96
[2017-07-19 08:00] VITALS: O2SAT 96
[2017-07-19] MEDS: DULOXETINE HCL 60 MG CAP PO SCH (08:00)
[2017-07-19] MEDS: HEPARIN SOD 5000 UNIT/0.5 ML CARP SQ SCH ×2 (09:00→20:41)
[2017-07-19] MEDS: DICLOFENAC SOD 1% GEL 100 GM TUBE EXT SCH ×4 (09:39→21:08)
[2017-07-19] MEDS: MYCOPHENOLATE MOFETIL 250 MG CAP (CELLCEPT) PO SCH ×2 (09:39→21:10)
[2017-07-19] MEDS: ROSUVASTATIN CALCIUM 10 MG TAB PO SCH (09:40)
[2017-07-19] MEDS: ISOSORBIDE MONONITRATE 30 MG TABCR PO SCH (09:41)
[2017-07-19] MEDS: ASPIRIN 81 MG ECTAB PO SCH (09:41)
[2017-07-19] MEDS: CEROVITE ADV FORMULA TAB PO SCH ×2 (09:41→21:11)
[2017-07-19] MEDS: CycloSPORINE (NEORAL) 25 MG CAP PO SCH ×2 (09:41→21:12)
[2017-07-19] MEDS: GABAPENTIN 400 MG CAP PO SCH ×3 (09:41→21:11)
[2017-07-19] MEDS: BACLOFEN 10 MG TAB PO SCH ×3 (09:41→21:10)
[2017-07-19] MEDS: LISINOPRIL 5 MG TAB PO SCH (09:42)
[2017-07-19] MEDS: LANSOPRAZOLE SOLUTAB 30 MG PO SCH (09:42)
[2017-07-19] MEDS: INSULIN ASPART 100 UNITS/ML 3 ML PEN SC SCH ×4 (09:54→20:40)
[2017-07-19] MEDS: INSULIN GLARGINE SOLOSTAR 100 UNITS/ML 3 ML PEN SC SCH (09:54)
[2017-07-19] MEDS: LIDODERM (LIDOCAINE) PATCH 5% TD SCH (10:31)
[2017-07-19 10:44] LABS: CREATININE 1.6 mg/dl (0.60-1.20)
[2017-07-19 15:10] VITALS: BP 112/70; PULSE 64; TEMP 36.4; O2SAT 95
[2017-07-19] MEDS: ERTAPENEM IV 1 GM in SODIUM CHLOR 0.9% AD-VAN 50ML IV SCH (17:46)
[2017-07-19] MEDS: TEMAZEPAM 15 MG CAP PO SCH (21:15)
--- NOTE | 2017-07-19 23:29 | Progress Note ---
Subjective Date of Service: Jul 19, 2017. Subjective Pt evaluation today including: conversation w/ patient Patient reports being more peasant today. She states her lower back pain has improved with the lidocaine patch. And she is using her pain cream for her shoulder. Patient asks when she will be discharged. Problem List Medical Problems: (1) Acute diarrhea Status: Acute (2) Acute electrocardiogram changes Status: Acute (3) Acute psychosis Status: Acute (4) Acute renal failure Status: Acute (5) Altered mental status Status: Acute (6) Anxiety Status: Chronic (7) Attention deficit hyperactivity disorder Status: Chronic (8) Back pain Status: Acute (9) CHF (congestive heart failure) Status: Acute (10) Chronic pain Status: Acute (11) Chronic pain Status: Acute (12) Diarrhea Status: Acute (13) Generalized weakness Status: Acute (14) Hyperkalemia Status: Acute (15) Hypothermia Status: Acute (16) Immunosuppression Status: Acute (17) Influenza A Status: Acute (18) Joint pain Status: Acute (19) Joint pain Status: Acute (20) Low back pain Status: Acute (21) Lower abdominal pain Status: Acute (22) Mood disorder Status: Acute (23) Nausea & vomiting Status: Acute (24) Patient refused evaluation Status: Acute (25) Pyelonephritis Status: Acute (26) Refusal of care by patient Status: Acute (27) Renal insufficiency Status: Acute (28) Sepsis Status: Acute (29) Thrombocytopenia Status: Acute (30) Urinary tract infection Status: Acute (31) Weakness Status: Acute Review of Systems All Other Systems: Reviewed and Negative Objective Vital Signs Date Time Temp Pulse Resp B/P (MAP) Pulse Ox O2 Delivery O2 Flow Rate FiO2 07/19/17 16:00 Room Air 07/19/17 15:10 36.4 64 20 112/70 (84) 95 Room Air 07/19/17 08:00 96 Room Air 07/19/17 07:37 36.5 57 20 147/86 (106) 96 Room Air 07/19/17 00:00 Room Air Physical Exam Comments: General Appearance: WD/WN, no distress Eyes: normal inspection, sclerae normal Neck: supple, no JVD Respiratory/Chest: chest non-tender, lungs clear, normal breath sounds Cardiovascular: regular rate, rhythm, no murmur Abdomen: normal bowel sounds, non tender, soft Neurologic/Psychiatric: alert, + depressed affec Laboratory Results Last 24 Hours Test 07/19/17 07:52 07/19/17 10:14 07/19/17 11:30 07/19/17 17:03 Bedside Glucose 128 mg/dl 193 mg/dl 129 mg/dl Creatinine 1.60 mg/dl Est Creatinine Clear Calc Drug Dose 38.8 ml/min Estimated GFR () 40.7 Estimated GFR (Non- 35.2 Test 07/19/17 19:59 Bedside Glucose 136 mg/dl Assessment and Plan Pt presented with generalized weakness and concern for pyelonephritis she is fuond to have MRR UTI, the pt is immuno suppressed with a transplanted kidney, with PMHx of Systolic CHF, T2DM, CAD with [place], CKD Stage III, TAMARA, SLE, Schizoaffective Disorder, and Borderline Personality Pyelonephritis in L Transplant Kidney: MDR E Coli both urine and blood suggesting sirs on presentation, is sensitive to 'penems -added pain medicine: started lidoerm patch. - Ertapenem 500 mg IV daily for renal dosing - review of previous cultures suggests MDR e. coli - NSS at 75 mL/hr and monitor for volume overload with daily weights and I&Os - Cyclosporine 50 mg BID and Cellcept 250 mg BID - this has been a recurrent issue for her will Have ID involved -Will continue on ertapenem for 14 days. -will f/u repeat blood cultures. -Patient refuses ultrasound guided iV line. Also do not believe patient is a candidate for discharge as I do not believe patient will follow through with treatment. Generalized Weakness: secondary to hydration and illness, unclear if affect is secondary to metabolic encephalopathy or psychiatric underlying illness, she seems to be disconnected and not generally oob will not have PT/OT as she refused Despite this will obtain PT/OT consult. Patient sadly refused this when PT team saw patient. Chronic Systolic CHF and HTN: remains compensated with treatment with Lisinopril 5 mg daily Elevated Troponin with H/O CAD with [place]:,is not acs, - ASA 81 mg daily, Imdur 60 mg daily, Crestor 5 mg daily T2DM controlled while here with compliance and diet - Lantus 20 units SC daily and SSI; Hold Victoza CKD Stage III: continue renal dosing of antibiotics and other meds Schizoaffective Disorder/Borderline Personality Disorder: affects her interaction with staff - Cymbalta 30 mg daily chronic lower back pain and right shoulder pain Placed on lidocaine patch early am When examined in afternoon, patient reports improvement. right shoulder pain ahs also improved. patient does not want a steroid injection. DVT Prophylaxis: Heparin, renal dosed Code Status: DO NOT RESUSCITATE Continued [facility] stay due to: multiple IV medications needed Discharge planning: uncertain
[2017-07-19 23:34] VITALS: BP 113/70; PULSE 54; TEMP 36.6; O2SAT 95
[2017-07-20 07:27] LABS: CREATININE 1.68 mg/dl (0.60-1.20)
[2017-07-20 07:29] VITALS: BP 166/80; PULSE 42; TEMP 36.3; O2SAT 95
[2017-07-20] MEDS: HEPARIN SOD 5000 UNIT/0.5 ML CARP SQ SCH ×2 (09:00→20:08)
[2017-07-20] MEDS: INSULIN ASPART 100 UNITS/ML 3 ML PEN SC SCH ×4 (09:29→20:16)
[2017-07-20] MEDS: INSULIN GLARGINE SOLOSTAR 100 UNITS/ML 3 ML PEN SC SCH (09:30)
[2017-07-20] MEDS: MYCOPHENOLATE MOFETIL 250 MG CAP (CELLCEPT) PO SCH ×2 (09:33→20:07)
[2017-07-20] MEDS: DICLOFENAC SOD 1% GEL 100 GM TUBE EXT SCH ×4 (09:33→20:05)
[2017-07-20] MEDS: DULOXETINE HCL 60 MG CAP PO SCH (09:35)
[2017-07-20] MEDS: ROSUVASTATIN CALCIUM 10 MG TAB PO SCH (09:35)
[2017-07-20] MEDS: ASPIRIN 81 MG ECTAB PO SCH (09:36)
[2017-07-20] MEDS: ISOSORBIDE MONONITRATE 30 MG TABCR PO SCH (09:37)
[2017-07-20] MEDS: BACLOFEN 10 MG TAB PO SCH ×2 (09:37→20:05)
[2017-07-20] MEDS: CEROVITE ADV FORMULA TAB PO SCH ×2 (09:39→20:06)
[2017-07-20] MEDS: CycloSPORINE (NEORAL) 25 MG CAP PO SCH ×2 (09:40→20:08)
[2017-07-20] MEDS: LISINOPRIL 5 MG TAB PO SCH (09:41)
[2017-07-20] MEDS: LANSOPRAZOLE SOLUTAB 30 MG PO SCH (09:41)
[2017-07-20] MEDS: GABAPENTIN 400 MG CAP PO SCH ×2 (09:41→20:06)
[2017-07-20] MEDS: LIDODERM (LIDOCAINE) PATCH 5% TD SCH (09:42)
[2017-07-20 11:34] VITALS: O2SAT 95
[2017-07-20 12:31] VITALS: BP 120/76; PULSE 55; O2SAT 97
[2017-07-20 15:33] VITALS: BP 128/80; PULSE 56; TEMP 36.5; O2SAT 93
[2017-07-20 16:00] VITALS: O2SAT 96
[2017-07-20] MEDS: ERTAPENEM IV 1 GM in SODIUM CHLOR 0.9% AD-VAN 50ML IV SCH (17:56)
[2017-07-20] MEDS: TEMAZEPAM 15 MG CAP PO SCH (20:14)
[2017-07-20 23:29] VITALS: BP 138/73; PULSE 61; TEMP 36.6; O2SAT 94
--- NOTE | 2017-07-20 23:56 | Progress Note ---
Subjective Date of Service: Jul 20, 2017. Subjective No new complaints today. Problem List Medical Problems: (1) Acute diarrhea Status: Acute (2) Acute electrocardiogram changes Status: Acute (3) Acute psychosis Status: Acute (4) Acute renal failure Status: Acute (5) Altered mental status Status: Acute (6) Anxiety Status: Chronic (7) Attention deficit hyperactivity disorder Status: Chronic (8) Back pain Status: Acute (9) CHF (congestive heart failure) Status: Acute (10) Chronic pain Status: Acute (11) Chronic pain Status: Acute (12) Diarrhea Status: Acute (13) Generalized weakness Status: Acute (14) Hyperkalemia Status: Acute (15) Hypothermia Status: Acute (16) Immunosuppression Status: Acute (17) Influenza A Status: Acute (18) Joint pain Status: Acute (19) Joint pain Status: Acute (20) Low back pain Status: Acute (21) Lower abdominal pain Status: Acute (22) Mood disorder Status: Acute (23) Nausea & vomiting Status: Acute (24) Patient refused evaluation Status: Acute (25) Pyelonephritis Status: Acute (26) Refusal of care by patient Status: Acute (27) Renal insufficiency Status: Acute (28) Sepsis Status: Acute (29) Thrombocytopenia Status: Acute (30) Urinary tract infection Status: Acute (31) Weakness Status: Acute Review of Systems All Other Systems: Reviewed and Negative Medications Current Inpatient Medications Medications (Trade) Dose Ordered Sig/Suyapa Route Start Time Stop Time Status Last Admin Dose Admin Acetaminophen (Tylenol Tab) 650 mg Q4H PRN PO 07/10/17 16:15 08/09/17 16:14 07/17/17 03:44 650 MG Al Hydrox/Mg Hydrox/Simethicone (Maalox Max Susp) 15 ml Q4H PRN PO 07/10/17 16:15 08/09/17 16:14 Magnesium Hydroxide (Milk Of Magnesia Susp) 30 ml Q12H PRN PO 07/10/17 16:15 08/09/17 16:14 Ondansetron HCl (Zofran Inj) 4 mg Q6H PRN IV 07/10/17 16:15 08/09/17 16:14 Aspirin (Ecotrin Tab) 81 mg QAM PO 07/11/17 09:00 08/10/17 08:59 07/20/17 09:36 81 MG Polyethylene (Miralax Powder Packet) 17 gm DAILY PRN PO 07/10/17 16:15 08/09/17 16:14 Baclofen (Lioresal Tab) 10 mg TID PO 07/10/17 21:00 08/09/17 20:59 07/20/17 20:05 10 MG Cyclosporine (Neoral Cap) 50 mg BID PO 07/10/17 21:00 08/09/17 20:59 07/20/17 20:08 50 MG Famotidine (Pepcid Tab) 20 mg BID PRN PO 07/10/17 21:00 08/09/17 20:59 07/11/17 08:30 20 MG Gabapentin (Neurontin Cap) 400 mg TID PO 07/10/17 21:00 08/09/17 20:59 07/20/17 20:06 400 MG Insulin Glargine (Lantus Solostar Pen) 20 units QAM SC 07/11/17 09:00 08/10/17 08:59 07/20/17 09:30 20 UNITS Isosorbide Mononitrate (Imdur Ext Rel Tab) 60 mg QAM PO 07/11/17 09:00 08/10/17 08:59 07/20/17 09:37 60 MG Lisinopril (Zestril Tab) 5 mg DAILY PO 07/11/17 09:00 08/10/17 08:59 07/20/17 09:41 5 MG Mycophenolate Mofetil (Cellcept Cap) 250 mg BID PO 07/10/17 21:00 08/09/17 20:59 07/20/17 20:07 250 MG Multivitamins/ Minerals (Multivitamin W/ Minerals Tab) 1 tab BID PO 07/10/17 21:00 08/09/17 20:59 07/20/17 20:06 1 TAB Rosuvastatin Calcium (Crestor Tab) 5 mg DAILY PO 07/11/17 09:00 08/10/17 08:59 07/20/17 09:35 5 MG Temazepam (Restoril Cap) 15 mg HS PO 07/10/17 21:00 08/09/17 20:59 07/20/17 20:14 15 MG Lansoprazole (Prevacid Solutab) 30 mg DAILY PO 07/11/17 09:00 08/10/17 08:59 07/20/17 09:41 30 MG Diclofenac Sodium (Voltaren 1% Top Gel) 1 appln QID EXT 07/10/17 21:00 08/09/17 20:59 07/20/17 20:05 1 APPLN Ertapenem (Consult) 1 ea UD PRN N/A 07/10/17 16:35 07/23/17 23:59 Miscellaneous (Iv Fluids Completed) 1 ea PRN PRN N/A 07/10/17 17:15 07/10/18 17:14 Insulin Aspart (novoLOG ASPART) SLIDING SCALE If C... ACHS SC 07/10/17 21:00 08/09/17 20:59 07/20/17 18:06 5 UNITS Glucose (Glucose 40% Gel) 15-30 GRAMS 15 GRAMS... UD PRN PO 07/10/17 17:15 08/09/17 17:14 Glucose (Glucose Chew Tab) 4-8 Tablets 4 Tabl... UD PRN PO 07/10/17 17:15 08/09/17 17:14 Dextrose (Dextrose 50% 50ML Syringe) 25-50ML OF 50% DW IV FOR... UD PRN IV 07/10/17 17:15 08/09/17 17:14 Glucagon (Glucagon Inj) 1 mg UD PRN SQ 07/10/17 17:15 08/09/17 17:14 Heparin Sodium (Porcine) (Heparin Sq 5000 Unit/0.5ml) 5,000 unit Q12 SQ 07/10/17 21:00 08/09/17 20:59 Ertapenem 1000 mg/ Sodium Chloride 60 ml @ 100 mls/hr Q24H IV 07/10/17 17:30 07/23/17 23:59 07/20/17 17:56 100 MLS/HR Tramadol HCl (Ultram Tab) 50 mg Q4H PRN PO 07/17/17 05:15 08/16/17 05:14 07/18/17 20:57 50 MG Lidocaine (Lidoderm Patch 5%) 1 patch QAM TD 07/19/17 08:00 08/18/17 07:59 07/20/17 09:42 1 PATCH Miscellaneous (Remove Lidoderm Patch) 1 ea DAILY@21 N/A 07/18/17 21:00 08/17/17 20:59 07/20/17 20:04 1 EA Duloxetine HCl (Cymbalta Cap) 60 mg DAILY PO 07/19/17 08:00 08/10/17 08:59 07/20/17 09:35 60 MG Objective Vital Signs Date Time Temp Pulse Resp B/P (MAP) Pulse Ox O2 Delivery O2 Flow Rate FiO2 07/20/17 23:29 36.6 61 20 138/73 (94) 94 Room Air 07/20/17 16:00 96 Room Air 07/20/17 15:33 36.5 56 18 128/80 (96) 93 Room Air 07/20/17 12:31 55 20 120/76 (91) 97 Room Air 07/20/17 11:34 95 Room Air 07/20/17 07:29 36.3 42 20 166/80 (108) 95 Room Air 07/20/17 00:00 Room Air Physical Exam Comments: General Appearance: WD/WN, + mild distress Eyes: normal inspection, sclerae normal Neck: supple, no JVD Respiratory/Chest: chest non-tender, lungs clear, normal breath sounds Cardiovascular: regular rate, rhythm, no murmur Abdomen: normal bowel sounds, non tender, soft Neurologic/Psychiatric: alert, + depressed affec Laboratory Results Last 24 Hours Test 07/20/17 06:18 07/20/17 07:29 07/20/17 11:35 07/20/17 16:27 Creatinine 1.68 mg/dl Est Creatinine Clear Calc Drug Dose 36.9 ml/min Estimated GFR () 38.4 Estimated GFR (Non- 33.1 Bedside Glucose 195 mg/dl 99 mg/dl 127 mg/dl Test 07/20/17 20:13 Bedside Glucose 171 mg/dl Assessment and Plan Pt presented with generalized weakness and concern for pyelonephritis she is fuond to have MRR UTI, the pt is immuno suppressed with a transplanted kidney, with PMHx of Systolic CHF, T2DM, CAD with DC, CKD Stage III, TAMARA, SLE, Schizoaffective Disorder, and Borderline Personality Pyelonephritis in L Transplant Kidney: MDR E Coli both urine and blood suggesting sirs on presentation, is sensitive to 'penems -added pain medicine: started lidoerm patch. - Ertapenem 500 mg IV daily for renal dosing - review of previous cultures suggests MDR e. coli - NSS at 75 mL/hr and monitor for volume overload with daily weights and I&Os - Cyclosporine 50 mg BID and Cellcept 250 mg BID - this has been a recurrent issue for her will Have ID involved -Will continue on ertapenem for 14 days. Discharge on Friday -will f/u repeat blood cultures. -Patient refuses ultrasound guided iV line. Also do not believe patient is a candidate for discharge as I do not believe patient will follow through with treatment. Generalized Weakness: secondary to hydration and illness, unclear if affect is secondary to metabolic encephalopathy or psychiatric underlying illness, she seems to be disconnected and not generally oob will not have PT/OT as she refused Despite this will obtain PT/OT consult. Patient sadly refused this when PT team saw patient. Chronic Systolic CHF and HTN: remains compensated with treatment with Lisinopril 5 mg daily Elevated Troponin with H/O CAD with DC:,is not acs, - ASA 81 mg daily, Imdur 60 mg daily, Crestor 5 mg daily T2DM controlled while here with compliance and diet - Lantus 20 units SC daily and SSI; Hold Victoza CKD Stage III: continue renal dosing of antibiotics and other meds Schizoaffective Disorder/Borderline Personality Disorder: affects her interaction with staff - Cymbalta 30 mg daily chronic lower back pain and right shoulder pain Placed on lidocaine patch early am When examined in afternoon, patient reports improvement. right shoulder pain ahs also improved. patient does not want a steroid injection. DVT Prophylaxis: Heparin, renal dosed Code Status: DO NOT RESUSCITATE Continued [facility] stay due to: multiple IV medications needed Discharge planning: uncertain
[2017-07-21 07:28] VITALS: BP 142/90; PULSE 46; TEMP 36.3; O2SAT 96
[2017-07-21 08:00] LABS: CREATININE 1.52 mg/dl (0.60-1.20)
[2017-07-21] MEDS: CycloSPORINE (NEORAL) 25 MG CAP PO SCH ×2 (08:25→21:27)
[2017-07-21] MEDS: GABAPENTIN 400 MG CAP PO SCH ×3 (08:25→21:25)
[2017-07-21] MEDS: DICLOFENAC SOD 1% GEL 100 GM TUBE EXT SCH ×4 (08:25→21:24)
[2017-07-21] MEDS: LANSOPRAZOLE SOLUTAB 30 MG PO SCH (08:26)
[2017-07-21] MEDS: BACLOFEN 10 MG TAB PO SCH ×3 (08:26→21:25)
[2017-07-21] MEDS: CEROVITE ADV FORMULA TAB PO SCH ×2 (08:26→21:25)
[2017-07-21] MEDS: ISOSORBIDE MONONITRATE 30 MG TABCR PO SCH (08:26)
[2017-07-21] MEDS: FAMOTIDINE 20 MG TAB PO PRN (08:26)
[2017-07-21] MEDS: MYCOPHENOLATE MOFETIL 250 MG CAP (CELLCEPT) PO SCH ×2 (08:26→21:27)
[2017-07-21] MEDS: DULOXETINE HCL 60 MG CAP PO SCH (08:26)
[2017-07-21] MEDS: ASPIRIN 81 MG ECTAB PO SCH (08:27)
[2017-07-21] MEDS: ROSUVASTATIN CALCIUM 10 MG TAB PO SCH (08:27)
[2017-07-21] MEDS: LIDODERM (LIDOCAINE) PATCH 5% TD SCH (08:28)
[2017-07-21] MEDS: LISINOPRIL 5 MG TAB PO SCH (08:28)
[2017-07-21] MEDS: HEPARIN SOD 5000 UNIT/0.5 ML CARP SQ SCH ×2 (08:28→21:00)
[2017-07-21] MEDS: INSULIN GLARGINE SOLOSTAR 100 UNITS/ML 3 ML PEN SC SCH (08:32)
[2017-07-21] MEDS: INSULIN ASPART 100 UNITS/ML 3 ML PEN SC SCH ×4 (08:32→21:21)
--- NOTE | 2017-07-21 11:04 | Progress Note ---
Subjective Date of Service: Jul 21, 2017. Subjective Pt evaluation today including: conversation w/ patient, physical exam, chart review, lab review pt seen in followup, states she is tired, no f/c. repeat blood cultures negative and final. tolerating abx. all remaining ros reviewed and are negative but limited Problem List Medical Problems: (1) Acute diarrhea Status: Acute (2) Acute electrocardiogram changes Status: Acute (3) Acute psychosis Status: Acute (4) Acute renal failure Status: Acute (5) Altered mental status Status: Acute (6) Anxiety Status: Chronic (7) Attention deficit hyperactivity disorder Status: Chronic (8) Back pain Status: Acute (9) CHF (congestive heart failure) Status: Acute (10) Chronic pain Status: Acute (11) Chronic pain Status: Acute (12) Diarrhea Status: Acute (13) Generalized weakness Status: Acute (14) Hyperkalemia Status: Acute (15) Hypothermia Status: Acute (16) Immunosuppression Status: Acute (17) Influenza A Status: Acute (18) Joint pain Status: Acute (19) Joint pain Status: Acute (20) Low back pain Status: Acute (21) Lower abdominal pain Status: Acute (22) Mood disorder Status: Acute (23) Nausea & vomiting Status: Acute (24) Patient refused evaluation Status: Acute (25) Pyelonephritis Status: Acute (26) Refusal of care by patient Status: Acute (27) Renal insufficiency Status: Acute (28) Sepsis Status: Acute (29) Thrombocytopenia Status: Acute (30) Urinary tract infection Status: Acute (31) Weakness Status: Acute Objective Vital Signs Date Time Temp Pulse Resp B/P (MAP) Pulse Ox O2 Delivery O2 Flow Rate FiO2 07/21/17 08:00 Room Air 07/21/17 07:28 36.3 46 18 142/90 (107) 96 Room Air 07/21/17 00:00 Room Air 07/20/17 23:29 36.6 61 20 138/73 (94) 94 Room Air 07/20/17 16:00 96 Room Air 07/20/17 15:33 36.5 56 18 128/80 (96) 93 Room Air 07/20/17 12:31 55 20 120/76 (91) 97 Room Air 07/20/17 11:34 95 Room Air Physical Exam General Appearance: WD/WN Neck: supple Respiratory/Chest: lungs clear Cardiovascular: regular rate, rhythm Abdomen: soft Extremities: no pedal edema Neurologic/Psychiatric: alert, oriented x 3 Skin: normal color Laboratory Results Item Value Date Time Blood Culture - Final Complete 07/15/17 1208 Blood NO GROWTH Blood Culture - Final Complete 07/15/17 1203 Blood NO GROWTH Urine Culture - Final Complete 07/10/17 1405 Urine , Clean Catch Escherichia Coli Esbl Blood Culture - Final Complete 07/10/17 1310 Blood Escherichia Coli Esbl Last 24 Hours Test 07/20/17 11:35 07/20/17 16:27 07/20/17 20:13 07/21/17 07:04 Bedside Glucose 99 mg/dl 127 mg/dl 171 mg/dl Creatinine 1.52 mg/dl Est Creatinine Clear Calc Drug Dose 40.8 ml/min Estimated GFR () 43.4 Estimated GFR (Non- 37.4 Test 07/21/17 07:44 Bedside Glucose 129 mg/dl Assessment and Plan (1) E. coli septicemia Assessment & Plan: continue ertapenem, will need 14 days. follow repeat cultures negative and final. (2) UTI (urinary tract infection) Continued [facility] stay due to: multiple IV medications needed Discharge planning: uncertain
--- NOTE | 2017-07-21 14:10 | Hospitalist Progress Note ---
Hospitalist Progress Note Date of Service Jul 21, 2017. (Norah Coy CRNP) Subjective Pt evaluation today including: conversation w/ patient, physical exam, chart review, lab review, review of inpatient medication list Voiding: no voiding problems Ms. Iverson has no complaints. ROS Constitutional: no chills, aches, sweats or fever Respiratory: no sob,cough, sputum, or wheezing Cardiac: no chest pain, palpitations, edema, orthopnea or lightheadedness GI: no abdominal pain, nausea, vomiting, diarrhea or constipation : no dysuria or hesitancy Extremities: no joint pain or weakness Skin: no rash All other systems reviewed and negative (Norah Coy CRNP) Medications Medications Administered Medications (Trade) Dose Ordered Sig/Suyapa Route Start Time Stop Time Status Last Admin Dose Admin Aspirin (Aspirin Chew) 324 mg NOW STAT PO 07/10/17 14:36 07/10/17 14:38 DC 07/10/17 14:52 324 MG Cefepime HCl 1000 mg/Dextrose 111 ml @ 200 mls/hr NOW STAT IV 07/10/17 15:03 07/10/17 15:36 DC 07/10/17 15:32 200 MLS/HR Sodium Chloride 500 ml @ 125 mls/hr Q4H STAT IV 07/10/17 15:03 07/10/17 17:15 DC 07/10/17 15:33 125 MLS/HR Sodium Chloride 1,000 ml @ 75 mls/hr [id number] IV 07/10/17 17:30 07/11/17 06:49 DC 07/10/17 17:55 75 MLS/HR Acetaminophen (Tylenol Tab) 650 mg Q4H PRN PO 07/10/17 16:15 08/09/17 16:14 07/17/17 03:44 650 MG Aspirin (Ecotrin Tab) 81 mg QAM PO 07/11/17 09:00 08/10/17 08:59 07/21/17 08:27 81 MG Baclofen (Lioresal Tab) 10 mg TID PO 07/10/17 21:00 08/09/17 20:59 07/21/17 08:26 10 MG Cyclosporine (Neoral Cap) 50 mg BID PO 07/10/17 21:00 08/09/17 20:59 07/21/17 08:25 50 MG Duloxetine HCl (Cymbalta Cap) 30 mg DAILY PO 07/11/17 09:00 07/18/17 19:13 DC 07/18/17 07:42 30 MG Famotidine (Pepcid Tab) 20 mg BID PRN PO 07/10/17 21:00 08/09/17 20:59 07/21/17 08:26 20 MG Gabapentin (Neurontin Cap) 400 mg TID PO 07/10/17 21:00 08/09/17 20:59 07/21/17 08:25 400 MG Insulin Glargine (Lantus Solostar Pen) 20 units QAM SC 07/11/17 09:00 08/10/17 08:59 07/21/17 08:32 20 UNITS Isosorbide Mononitrate (Imdur Ext Rel Tab) 60 mg QAM PO 07/11/17 09:00 08/10/17 08:59 07/21/17 08:26 60 MG Lisinopril (Zestril Tab) 5 mg DAILY PO 07/11/17 09:00 08/10/17 08:59 07/21/17 08:28 5 MG Mycophenolate Mofetil (Cellcept Cap) 250 mg BID PO 07/10/17 21:00 08/09/17 20:59 07/21/17 08:26 250 MG Multivitamins/ Minerals (Multivitamin W/ Minerals Tab) 1 tab BID PO 07/10/17 21:00 08/09/17 20:59 07/21/17 08:26 1 TAB Rosuvastatin Calcium (Crestor Tab) 5 mg DAILY PO 07/11/17 09:00 08/10/17 08:59 07/21/17 08:27 5 MG Temazepam (Restoril Cap) 15 mg HS PO 07/10/17 21:00 08/09/17 20:59 07/20/17 20:14 15 MG Lansoprazole (Prevacid Solutab) 30 mg DAILY PO 07/11/17 09:00 08/10/17 08:59 07/21/17 08:26 30 MG Diclofenac Sodium (Voltaren 1% Top Gel) 1 appln QID EXT 07/10/17 21:00 08/09/17 20:59 07/21/17 12:30 1 APPLN Insulin Aspart (novoLOG ASPART) SLIDING SCALE If C... ACHS SC 07/10/17 21:00 08/09/17 20:59 07/21/17 12:28 8 UNITS Ertapenem 1000 mg/ Sodium Chloride 60 ml @ 100 mls/hr Q24H IV 07/10/17 17:30 07/23/17 23:59 07/20/17 17:56 100 MLS/HR Magnesium Sulfate 1 gm/Prmx 100 ml @ 100 mls/hr ONE ONCE IV 07/12/17 08:00 07/12/17 08:59 DC 07/12/17 08:53 100 MLS/HR Tramadol HCl (Ultram Tab) 50 mg Q4H PRN PO 07/17/17 05:15 08/16/17 05:14 07/18/17 20:57 50 MG Lidocaine (Lidoderm Patch 5%) 1 patch QAM TD 07/19/17 08:00 08/18/17 07:59 07/21/17 08:28 1 PATCH Miscellaneous (Remove Lidoderm Patch) 1 ea DAILY@21 N/A 07/18/17 21:00 08/17/17 20:59 07/20/17 20:04 1 EA Duloxetine HCl (Cymbalta Cap) 60 mg DAILY PO 07/19/17 08:00 08/10/17 08:59 07/21/17 08:26 60 MG (Norah Coy CRNP) Objective Vital Signs Date Time Temp Pulse Resp B/P (MAP) Pulse Ox O2 Delivery O2 Flow Rate FiO2 07/21/17 08:00 Room Air 07/21/17 07:28 36.3 46 18 142/90 (107) 96 Room Air 07/21/17 00:00 Room Air 07/20/17 23:29 36.6 61 20 138/73 (94) 94 Room Air 07/20/17 16:00 96 Room Air 07/20/17 15:33 36.5 56 18 128/80 (96) 93 Room Air (Norah Coy CRNP) Physical Exam Notes: General: no distress Eyes: normal inspection, PERLL Respiratory: chest non tender, clear to auscultation, normal breath sounds, no respiratory distress, no accessory muscle use Cardiac: regular rate and rhythm, no rub or gallop, no murmur, no edema, no jvd GI/: active bowel sounds, no abd pain or tenderness, soft, non distended Extremities: normal range of motion, normal strength, non tender Neuro/Psych: alert and oriented x 3, flat affect Skin: normal color, dry (Norah Coy CRNP) Laboratory Results Last 24 Hours Test 07/20/17 16:27 07/20/17 20:13 07/21/17 07:04 07/21/17 07:44 Bedside Glucose 127 mg/dl 171 mg/dl 129 mg/dl Creatinine 1.52 mg/dl Est Creatinine Clear Calc Drug Dose 40.8 ml/min Estimated GFR () 43.4 Estimated GFR (Non- 37.4 Test 07/21/17 11:34 Bedside Glucose 157 mg/dl (Norah Coy CRNP) Assessment and Plan Pt presented with generalized weakness and concern for pyelonephritis she is found to have MRR UTI, the pt is immuno suppressed with a transplanted kidney, with PMHx of Systolic CHF, T2DM, CAD with DC, CKD Stage III, TAMARA, SLE, Schizoaffective Disorder, and Borderline Personality 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 coli - total of 14 days, patient refused US guided IV for outpatient infusions and patient has a history of noncompliance so will keep her inpatient for IV infusions and discharge on Friday - Cyclosporine 50 mg BID and Cellcept 250 mg BID - repeat blood cultures no growth Generalized Weakness/metabolic encephalopathy: secondary to hydration and illness, PT/OT consult - patient has been refusing Chronic Systolic CHF and HTN - continue lisinopril Elevated Troponin/ Type II NSTEMI/ H/O CAD with DC: - Trop peaked at 0.26 and trended down - Continue ASA 81 mg daily, Imdur 60 mg daily, Crestor 5 mg daily T2DM controlled while here with compliance and diet - Lantus 20 units SC daily and SSI; Hold Victoza CKD Stage III: continue renal dosing of antibiotics and other meds Schizoaffective Disorder/Borderline Personality Disorder: affects her interaction with staff - Cymbalta 30 mg daily DVT Prophylaxis: Heparin, renal dosed Code Status: DO NOT RESUSCITATE (Norah oCy ., HENRY) HARVESTING SUPERVISOR Physician Supervision Note: I discussed with Norah Coy HARVESTING SUPERVISOR and agree with findings and plan as documented in the note. Any exceptions or clarifications are listed here: None Patient has no new issues she is on ertapenem for multidrug-resistant UTI associate with immunosuppression from a renal transplant. Her course is likely to be completed while she is an inpatient due to concern for medical compliance as an outpatient is in no new issues overnight vital signs are stable we will continue treatment with eyes towards completing the course as prescribed by infectious disease Documented By: Tray Vaca (Tray Vaca M.D.)
[2017-07-21 15:08] VITALS: BP 125/74; PULSE 72; TEMP 36.5; O2SAT 97
[2017-07-21 16:00] VITALS: O2SAT 96
[2017-07-21] MEDS: ERTAPENEM IV 1 GM in SODIUM CHLOR 0.9% AD-VAN 50ML IV SCH (17:08)
[2017-07-21] MEDS: TEMAZEPAM 15 MG CAP PO SCH (21:24)
[2017-07-21 23:11] VITALS: BP 147/62; PULSE 62; TEMP 36.7; O2SAT 94
[2017-07-22] MEDS: TRAMADOL HCL 50 MG TAB PO PRN (06:19)
[2017-07-22 06:53] LABS: CREATININE 1.66 mg/dl (0.60-1.20)
[2017-07-22 07:24] VITALS: BP 155/79; PULSE 56; TEMP 36.7; O2SAT 95
[2017-07-22] MEDS: HEPARIN SOD 5000 UNIT/0.5 ML CARP SQ SCH ×2 (07:55→21:00)
[2017-07-22] MEDS: LIDODERM (LIDOCAINE) PATCH 5% TD SCH (08:10)
[2017-07-22] MEDS: DICLOFENAC SOD 1% GEL 100 GM TUBE EXT SCH ×4 (08:10→20:00)
[2017-07-22] MEDS: LISINOPRIL 5 MG TAB PO SCH (08:11)
[2017-07-22] MEDS: LANSOPRAZOLE SOLUTAB 30 MG PO SCH (08:11)
[2017-07-22] MEDS: ASPIRIN 81 MG ECTAB PO SCH (08:11)
[2017-07-22] MEDS: CEROVITE ADV FORMULA TAB PO SCH ×2 (08:11→20:00)
[2017-07-22] MEDS: ISOSORBIDE MONONITRATE 30 MG TABCR PO SCH (08:11)
[2017-07-22] MEDS: ROSUVASTATIN CALCIUM 10 MG TAB PO SCH (08:11)
[2017-07-22] MEDS: BACLOFEN 10 MG TAB PO SCH ×3 (08:11→20:00)
[2017-07-22] MEDS: CycloSPORINE (NEORAL) 25 MG CAP PO SCH ×2 (08:12→20:00)
[2017-07-22] MEDS: DULOXETINE HCL 60 MG CAP PO SCH (08:12)
[2017-07-22] MEDS: GABAPENTIN 400 MG CAP PO SCH ×3 (08:12→20:00)
[2017-07-22] MEDS: MYCOPHENOLATE MOFETIL 250 MG CAP (CELLCEPT) PO SCH ×2 (08:12→20:00)
[2017-07-22] MEDS: INSULIN GLARGINE SOLOSTAR 100 UNITS/ML 3 ML PEN SC SCH (08:19)
[2017-07-22] MEDS: INSULIN ASPART 100 UNITS/ML 3 ML PEN SC SCH ×4 (08:19→22:00)
--- NOTE | 2017-07-22 13:10 | Hospitalist Progress Note ---
Hospitalist Progress Note Date of Service July 22, 2017. (Norah Coy ., HENRY) Subjective Pt evaluation today including: conversation w/ patient, conversation w/ family (updated friend Qi), physical exam, chart review, lab review, review of inpatient medication list Voiding: no voiding problems Ms. Iverson continues to have loose stools but otherwise has no complaints ROS Constitutional: no chills, aches, sweats or fever Respiratory: no sob,cough, sputum, or wheezing Cardiac: no chest pain, palpitations, edema, orthopnea or lightheadedness GI: no abdominal pain, nausea, vomiting, or constipation : no dysuria or hesitancy Extremities: no joint pain or weakness Skin: no rash All other systems reviewed and negative (Norah Coy CRNP) Medications Medications Administered Medications (Trade) Dose Ordered Sig/Suyapa Route Start Time Stop Time Status Last Admin Dose Admin Aspirin (Aspirin Chew) 324 mg NOW STAT PO 07/10/17 14:36 07/10/17 14:38 DC 07/10/17 14:52 324 MG Cefepime HCl 1000 mg/Dextrose 111 ml @ 200 mls/hr NOW STAT IV 07/10/17 15:03 07/10/17 15:36 DC 07/10/17 15:32 200 MLS/HR Sodium Chloride 500 ml @ 125 mls/hr Q4H STAT IV 07/10/17 15:03 07/10/17 17:15 DC 07/10/17 15:33 125 MLS/HR Sodium Chloride 1,000 ml @ 75 mls/hr [id number] IV 07/10/17 17:30 07/11/17 06:49 DC 07/10/17 17:55 75 MLS/HR Acetaminophen (Tylenol Tab) 650 mg Q4H PRN PO 07/10/17 16:15 08/09/17 16:14 07/17/17 03:44 650 MG Aspirin (Ecotrin Tab) 81 mg QAM PO 07/11/17 09:00 08/10/17 08:59 07/22/17 08:11 81 MG Baclofen (Lioresal Tab) 10 mg TID PO 07/10/17 21:00 08/09/17 20:59 07/22/17 08:11 10 MG Cyclosporine (Neoral Cap) 50 mg BID PO 07/10/17 21:00 5/19/18 20:59 07/22/17 08:12 50 MG Duloxetine HCl (Cymbalta Cap) 30 mg DAILY PO 07/11/17 09:00 07/18/17 19:13 DC 07/18/17 07:42 30 MG Famotidine (Pepcid Tab) 20 mg BID PRN PO 07/10/17 21:00 08/09/17 20:59 07/21/17 08:26 20 MG Gabapentin (Neurontin Cap) 400 mg TID PO 07/10/17 21:00 08/09/17 20:59 07/22/17 08:12 400 MG Insulin Glargine (Lantus Solostar Pen) 20 units QAM SC 07/11/17 09:00 08/10/17 08:59 07/22/17 08:19 20 UNITS Isosorbide Mononitrate (Imdur Ext Rel Tab) 60 mg QAM PO 07/11/17 09:00 08/10/17 08:59 07/22/17 08:11 60 MG Lisinopril (Zestril Tab) 5 mg DAILY PO 07/11/17 09:00 08/10/17 08:59 07/22/17 08:11 5 MG Mycophenolate Mofetil (Cellcept Cap) 250 mg BID PO 07/10/17 21:00 08/09/17 20:59 07/22/17 08:12 250 MG Multivitamins/ Minerals (Multivitamin W/ Minerals Tab) 1 tab BID PO 07/10/17 21:00 08/09/17 20:59 07/22/17 08:11 1 TAB Rosuvastatin Calcium (Crestor Tab) 5 mg DAILY PO 07/11/17 09:00 08/10/17 08:59 07/22/17 08:11 5 MG Temazepam (Restoril Cap) 15 mg HS PO 07/10/17 21:00 08/09/17 20:59 07/20/17 20:14 15 MG Lansoprazole (Prevacid Solutab) 30 mg DAILY PO 07/11/17 09:00 08/10/17 08:59 07/22/17 08:11 30 MG Diclofenac Sodium (Voltaren 1% Top Gel) 1 appln QID EXT 07/10/17 21:00 08/09/17 20:59 07/22/17 11:42 1 APPLN Insulin Aspart (novoLOG ASPART) SLIDING SCALE If C... ACHS SC 07/10/17 21:00 08/09/17 20:59 07/22/17 12:29 4 UNITS Ertapenem 1000 mg/ Sodium Chloride 60 ml @ 100 mls/hr Q24H IV 07/10/17 17:30 07/23/17 23:59 07/21/17 17:08 100 MLS/HR Magnesium Sulfate 1 gm/Prmx 100 ml @ 100 mls/hr ONE ONCE IV 07/12/17 08:00 07/12/17 08:59 DC 07/12/17 08:53 100 MLS/HR Tramadol HCl (Ultram Tab) 50 mg Q4H PRN PO 07/17/17 05:15 08/16/17 05:14 07/22/17 06:19 50 MG Lidocaine (Lidoderm Patch 5%) 1 patch QAM TD 07/19/17 08:00 08/18/17 07:59 07/22/17 08:10 1 PATCH Miscellaneous (Remove Lidoderm Patch) 1 ea DAILY@21 N/A 07/18/17 21:00 08/17/17 20:59 07/21/17 21:28 1 EA Duloxetine HCl (Cymbalta Cap) 60 mg DAILY PO 07/19/17 08:00 08/10/17 08:59 07/22/17 08:12 60 MG (Norah Coy, HENRY) Objective Vital Signs Date Time Temp Pulse Resp B/P (MAP) Pulse Ox O2 Delivery O2 Flow Rate FiO2 07/22/17 08:00 Room Air 07/22/17 07:24 36.7 56 16 155/79 (104) 95 Room Air 07/22/17 00:20 Room Air 07/21/17 23:11 36.7 62 17 147/62 (90) 94 Room Air 07/21/17 16:00 96 Room Air 07/21/17 15:08 36.5 72 22 125/74 (91) 97 Room Air (Norah Coy CRNP) Physical Exam Notes: General: no distress Eyes: normal inspection, PERLL Respiratory: chest non tender, clear to auscultation, normal breath sounds, no respiratory distress, no accessory muscle use Cardiac: regular rate and rhythm, no rub or gallop, no murmur, no edema, no jvd GI/: active bowel sounds, no abd pain or tenderness, soft, non distended Extremities: normal range of motion, normal strength, non tender Neuro/Psych: alert and oriented x 3, normal mood and affect Skin: normal color, dry (Norah Coy CRNP) Laboratory Results Last 24 Hours Test 07/21/17 16:25 07/21/17 20:17 07/22/17 06:12 07/22/17 07:40 Bedside Glucose 72 mg/dl 161 mg/dl 131 mg/dl Creatinine 1.66 mg/dl Est Creatinine Clear Calc Drug Dose 37.4 ml/min Estimated GFR () 39.0 Estimated GFR (Non- 33.6 Test 07/22/17 11:40 Bedside Glucose 200 mg/dl (Norah Coy CRNP) Assessment and Plan Pt presented with generalized weakness and concern for pyelonephritis she is found to have MRR UTI, the pt is immuno suppressed with a transplanted kidney, with PMHx of Systolic CHF, T2DM, CAD with MA, CKD Stage III, TAMARA, SLE, Schizoaffective Disorder, and Borderline Personality 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 coli - total of 14 days, patient refused US guided IV for outpatient infusions and patient has a history of noncompliance so will keep her inpatient for IV infusions and discharge on Friday - Cyclosporine 50 mg BID and Cellcept 250 mg BID - repeat blood cultures no growth Generalized Weakness/metabolic encephalopathy: secondary to hydration and illness, resolved PT/OT consult - patient has intermittently participated and supervision is recommended but patient refuses rehab thus far Chronic Systolic CHF and HTN - continue lisinopril Elevated Troponin/ Type II NSTEMI/ H/O CAD with MA: - Trop peaked at 0.26 and trended down - Continue ASA 81 mg daily, Imdur 60 mg daily, Crestor 5 mg daily T2DM controlled while here with compliance and diet - Lantus 20 units SC daily and SSI; Hold Victoza CKD Stage III: continue renal dosing of antibiotics and other meds Schizoaffective Disorder/Borderline Personality Disorder: affects her interaction with staff - Cymbalta 30 mg daily DVT Prophylaxis: Heparin, renal dosed Code Status: DO NOT RESUSCITATE (Norah Coy ., HENRY) LOT ASSOCIATE Physician Supervision Note: I discussed with Norah Coy LOT ASSOCIATE and agree with findings and plan as documented in the note. Any exceptions or clarifications are listed here: None Patient has no new issues she is on ertapenem for multidrug-resistant UTI associate with immunosuppression from a renal transplant. Her course is likely to be completed while she is an inpatient due to concern for medical compliance as an outpatient family and patient now believes the patient may benefit from rehab stay however she was denied acute rehab and if she goes to subacute rehab she will be a target process will continue discuss this with the family, her vital signs remain stable we will continue treatment, completing the course as prescribed by infectious disease Documented By: Tray Vaca (Tray Vaca M.D.)
[2017-07-22 15:09] VITALS: BP 127/83; PULSE 62; TEMP 36.5; O2SAT 96
--- NOTE | 2017-07-22 15:10 | Progress Note ---
Subjective Date of Service: July 22, 2017. Subjective Pt evaluation today including: conversation w/ patient, physical exam, chart review, lab review pt oob to chair, looking much better. afebrile. tolerating abx denies abd pain n /v/d. no f/c repeat cultures negative and final. all remaining ros reviewed and are negative. Problem List Medical Problems: (1) Acute diarrhea Status: Acute (2) Acute electrocardiogram changes Status: Acute (3) Acute psychosis Status: Acute (4) Acute renal failure Status: Acute (5) Altered mental status Status: Acute (6) Anxiety Status: Chronic (7) Attention deficit hyperactivity disorder Status: Chronic (8) Back pain Status: Acute (9) CHF (congestive heart failure) Status: Acute (10) Chronic pain Status: Acute (11) Chronic pain Status: Acute (12) Diarrhea Status: Acute (13) Generalized weakness Status: Acute (14) Hyperkalemia Status: Acute (15) Hypothermia Status: Acute (16) Immunosuppression Status: Acute (17) Influenza A Status: Acute (18) Joint pain Status: Acute (19) Joint pain Status: Acute (20) Low back pain Status: Acute (21) Lower abdominal pain Status: Acute (22) Mood disorder Status: Acute (23) Nausea & vomiting Status: Acute (24) Patient refused evaluation Status: Acute (25) Pyelonephritis Status: Acute (26) Refusal of care by patient Status: Acute (27) Renal insufficiency Status: Acute (28) Sepsis Status: Acute (29) Thrombocytopenia Status: Acute (30) Urinary tract infection Status: Acute (31) Weakness Status: Acute Objective Vital Signs Date Time Temp Pulse Resp B/P (MAP) Pulse Ox O2 Delivery O2 Flow Rate FiO2 07/22/17 08:00 Room Air 07/22/17 07:24 36.7 56 16 155/79 (104) 95 Room Air 07/22/17 00:20 Room Air 07/21/17 23:11 36.7 62 17 147/62 (90) 94 Room Air 07/21/17 16:00 96 Room Air Physical Exam General Appearance: WD/WN, no apparent distress Eyes: normal inspection, EOMI Neck: supple Respiratory/Chest: lungs clear, normal breath sounds, no respiratory distress Cardiovascular: regular rate, rhythm Abdomen: non tender, soft Extremities: non-tender, no pedal edema Neurologic/Psychiatric: alert, oriented x 3 Skin: normal color Laboratory Results Item Value Date Time Blood Culture - Final Complete 07/15/17 1208 Blood NO GROWTH Blood Culture - Final Complete 07/15/17 1203 Blood NO GROWTH Urine Culture - Final Complete 07/10/17 1405 Urine , Clean Catch Escherichia Coli Esbl Blood Culture - Final Complete 07/10/17 1310 Blood Escherichia Coli Esbl Last 24 Hours Test 07/21/17 16:25 07/21/17 20:17 07/22/17 06:12 07/22/17 07:40 Bedside Glucose 72 mg/dl 161 mg/dl 131 mg/dl Creatinine 1.66 mg/dl Est Creatinine Clear Calc Drug Dose 37.4 ml/min Estimated GFR () 39.0 Estimated GFR (Non- 33.6 Test 07/22/17 11:40 Bedside Glucose 200 mg/dl Assessment and Plan (1) E. coli septicemia Assessment & Plan: continue ertapenem, will need 14 days. follow repeat cultures negative and final. will need 2 more days. (2) UTI (urinary tract infection) Continued [facility] stay due to: multiple IV medications needed Discharge planning: uncertain
[2017-07-22 16:00] VITALS: O2SAT 96
[2017-07-22] MEDS: ERTAPENEM IV 1 GM in SODIUM CHLOR 0.9% AD-VAN 50ML IV SCH (17:30)
[2017-07-22] MEDS: TEMAZEPAM 15 MG CAP PO SCH (22:00)
[2017-07-23] MEDS: INSULIN ASPART 100 UNITS/ML 3 ML PEN SC SCH ×4 (06:30→21:33)
[2017-07-23] MEDS: MYCOPHENOLATE MOFETIL 250 MG CAP (CELLCEPT) PO SCH ×2 (08:00→21:31)
[2017-07-23] MEDS: ISOSORBIDE MONONITRATE 30 MG TABCR PO SCH (08:00)
[2017-07-23] MEDS: CEROVITE ADV FORMULA TAB PO SCH ×2 (08:00→21:32)
[2017-07-23] MEDS: LISINOPRIL 5 MG TAB PO SCH (08:00)
[2017-07-23] MEDS: GABAPENTIN 400 MG CAP PO SCH ×4 (08:00→23:08)
[2017-07-23] MEDS: DULOXETINE HCL 60 MG CAP PO SCH (08:00)
[2017-07-23] MEDS: BACLOFEN 10 MG TAB PO SCH ×4 (08:00→23:07)
[2017-07-23] MEDS: ASPIRIN 81 MG ECTAB PO SCH (08:00)
[2017-07-23] MEDS: LIDODERM (LIDOCAINE) PATCH 5% TD SCH (08:00)
[2017-07-23] MEDS: ROSUVASTATIN CALCIUM 10 MG TAB PO SCH (08:00)
[2017-07-23] MEDS: INSULIN GLARGINE SOLOSTAR 100 UNITS/ML 3 ML PEN SC SCH (08:00)
[2017-07-23] MEDS: DICLOFENAC SOD 1% GEL 100 GM TUBE EXT SCH ×4 (08:00→21:32)
[2017-07-23] MEDS: CycloSPORINE (NEORAL) 25 MG CAP PO SCH ×2 (08:00→21:31)
[2017-07-23] MEDS: LANSOPRAZOLE SOLUTAB 30 MG PO SCH (08:00)
[2017-07-23] MEDS: HEPARIN SOD 5000 UNIT/0.5 ML CARP SQ SCH ×2 (08:18→21:33)
[2017-07-23 11:58] VITALS: BP 127/83; PULSE 62; TEMP 36.5; O2SAT 96
[2017-07-23] MEDS ORDERED: NURSING VERBAL MED ORDER ONE (12:00)
[2017-07-23] MEDS: ERTAPENEM IV 1 GM in SODIUM CHLOR 0.9% AD-VAN 50ML IV SCH (12:13)
--- NOTE | 2017-07-23 12:17 | Psychiatric Progress Notes ---
Progress Note Date of Service July 23, 2017. Interval History 57-year-old female with multiple medical problems and borderline personality disorder who is admitted medically with progressive weakness and pyelonephritis. Psychiatry was consulted after she made suicidal statements, and she was seen by HENRY Salcido, on 07/17/2017. I was asked to reassess her today prior to discharge, as she made suicidal statements yesterday. Chief Complaint "I was told I could go home today, and I am ready to go home ". Subjective Patient was seen & assessed, and her chart reviewed. She is well known to us from multiple previous consultations and has untreated borderline personality disorder. She typically refuses treatment recommendations, acts out behaviorally in the hospital by refusing treatment and hostile, inappropriate language towards staff. She has consistently refused any type of mental health treatment, including therapy, although she is prescribed duloxetine, presumably by her PCP. Earlier in her hospital stay, she made statements about wanting to , and when seen by the consult team, denied that she was suicidal, but reiterated her previously expressed believes that nobody cares about her, and that she was not interested in therapy, which has been recommended many times. During the course of her current hospitalization, she has been mostly compliant with treatment, and received a course of IV antibiotics. She was initially unwilling for referrals to [facility] or other rehab facilities, but later agreed to a referral to [facility], but she was not accepted. She refused referrals to half-way options. When case management informed her yesterday that she had not been accepted to [facility], she stated that "[facility] just fucks you in the ass." "I need to move to [facility] because then it would be legal to kill myself." " I just should have killed myself the last time." " I just shouldn't come for healthcare one day you may find me on my couch." The liaison nurse came to speak with her shortly afterwards, and she stated that she made the statements out of frustration, and adamantly denied any suicidal thoughts or plan to harm herself. She made comments that she would start refusing treatment, because "nobody does anything for anybody." She was resistant to further engagement in discussion about her stressors. Staff have continue to encourage her to consider going to a half-way for physical rehab , but she is unwilling. She makes provocative comments, for example stating that she will not eat because she is on a "starvation diet," and that she is refusing medications because she is "branded as refusing treatment and needs to live up to her label." On my assessment, the patient states that she is angry that she has not yet been discharged, stating she was told she would be discharged today, and she wishes to return home. She continues to deny any plan or intent to harm herself, stating "I am not suicidal, I just want to go home." She is unwilling to accept referrals for an outpatient psychiatrist or therapist, but is willing to continue to follow up with her primary provider. She is aware of how to access emergency services if needed, including use of the can help line or the emergency room. Mental Status Exam During interview pt is: alert and oriented (Partially cooperative) Appearance: other (Lying in bed in no acute distress.) Eye contact is: poor (Does not make any eye contact.) Motor behavior is: no abnormal motor movements Speech: other (Sarcastic, irritated tone) Affect: irritable Mood is: irritable Thought process: goal directed, clear, coherent Thought content: cognitive distortions (That no one cares about her) Suicidal thought are: denied Homicidal thoughts are: denied Hallucinations: denies auditory, denies visual Cognition: memory grossly intact, attention grossly intact, language grossly intact Intelligence estimated to be: average Insight: limited Judgement: limited Impression Patient consistently presents as depressed and angry, and usually communicates her needs through anger and provocation, which makes her very challenging to care for. These traits in this behavior are consistent with her borderline personality disorder diagnosis, and are unlikely to benefit from treatment on an acute inpatient unit. Furthermore, she is not willing for inpatient treatment, and during past episodes of inpatient treatment, has been unwilling to engage. Although she has made frequent provocative statements about dying during multiple recent hospitalizations, when confronted, she denies plan or intent to harm herself, and she does not have a history of suicide attempts, and in fact has always come back to the hospital when she was decompensating. She does not meet criteria for involuntary commitment, as she has had no act of furtherance. Although she is poorly able to abide by her behavioral contract, it should be reviewed at the beginning of each hospitalization, addressing the need for appropriate respectful behavior with all care givers, and it should be reinforced with each inappropriate interaction. Plan (1) Borderline personality disorder 07/17 - Patient unwilling for inpatient or outpatient mental health treatment, does not meet criteria for involuntary commitment. Furthermore, she is unlikely to benefit from inpatient treatment, as she has consistently stated she is not interested in it, and during past episodes of inpatient treatment was completely noncompliant and unengaged. Although she remains at increased risk for harm to herself compared to the general population, given her risk factors (severe personality disorder, no outpatient mental health treatment, lack of supports, single status, race, health problems, consistent poor cooperation with treatment, and suicidal statements), she is not at acute risk of harm and does not meet criteria for involuntary commitment, and therefore can be discharged and managed as an outpatient. - Continue duloxetine, and follow-up with prescribing physician. If at any time she is willing to see a psychiatrist or therapist, she may benefit from ongoing outpatient treatment, specifically DBT therapy. - Behavioral contract with each admission. - Patient is well acquainted with the [facility] crisis line, and can return to the emergency room if she feels acutely unsafe. Visit Code E&M Code: 46730 Data Vital Signs Last 24 Hrs: Date Time Temp Pulse Resp B/P (MAP) Pulse Ox O2 Delivery O2 Flow Rate FiO2 07/23/17 08:00 Room Air 07/23/17 00:00 Room Air 07/22/17 16:00 96 Room Air 07/22/17 15:09 36.5 62 18 127/83 (98) 96 Room Air Lab Results Last 24 Hrs: Last 24 Hours Test 07/23/17 04:44
--- NOTE | 2017-07-23 15:10 | Hospitalist Progress Note ---
Hospitalist Progress Note Date of Service July 23, 2017. (Norah Coy ., HENYR) Subjective Pt evaluation today including: conversation w/ patient, physical exam, chart review, lab review, review of inpatient medication list Voiding: no voiding problems Ms. Iverson had a difficult night per nursing notes. She was very upset yesterday about [facility] rejecting her for rehab. She did make comments referring to suicide and was put on q15 minute checks. Today however she was seen by psych who did not feel she met criteria for commitment. In my discussion with her she denied suicidal thoughts or thoughts of hurting herself. She refused to be fully assessed and also refused to answer ROS questions. She became very hostile and I ended the conversation stating that I was trying to help her but could not if she was going to mock me when I was talking to her. She did have nursing call me back to the room sometime later. She was calmer at that time and agreed to rehab at [facility] as well as receiving her last dose of IV abx. CM aware and submitted authorization. (Norah Coy ., HENRY) Medications Medications Administered Medications (Trade) Dose Ordered Sig/Suyapa Route Start Time Stop Time Status Last Admin Dose Admin Aspirin (Aspirin Chew) 324 mg NOW STAT PO 07/10/17 14:36 07/10/17 14:38 DC 07/10/17 14:52 324 MG Cefepime HCl 1000 mg/Dextrose 111 ml @ 200 mls/hr NOW STAT IV 07/10/17 15:03 07/10/17 15:36 DC 07/10/17 15:32 200 MLS/HR Sodium Chloride 500 ml @ 125 mls/hr Q4H STAT IV 07/10/17 15:03 07/10/17 17:15 DC 07/10/17 15:33 125 MLS/HR Sodium Chloride 1,000 ml @ 75 mls/hr [id number] IV 07/10/17 17:30 07/11/17 06:49 DC 07/10/17 17:55 75 MLS/HR Acetaminophen (Tylenol Tab) 650 mg Q4H PRN PO 07/10/17 16:15 08/09/17 16:14 07/17/17 03:44 650 MG Aspirin (Ecotrin Tab) 81 mg QAM PO 07/11/17 09:00 08/10/17 08:59 07/22/17 08:11 81 MG Baclofen (Lioresal Tab) 10 mg TID PO 07/10/17 21:00 08/09/17 20:59 07/22/17 14:02 10 MG Cyclosporine (Neoral Cap) 50 mg BID PO 07/10/17 21:00 08/09/17 20:59 07/22/17 08:12 50 MG Duloxetine HCl (Cymbalta Cap) 30 mg DAILY PO 07/11/17 09:00 07/18/17 19:13 DC 07/18/17 07:42 30 MG Famotidine (Pepcid Tab) 20 mg BID PRN PO 07/10/17 21:00 08/09/17 20:59 07/21/17 08:26 20 MG Gabapentin (Neurontin Cap) 400 mg TID PO 07/10/17 21:00 08/09/17 20:59 07/22/17 14:02 400 MG Insulin Glargine (Lantus Solostar Pen) 20 units QAM SC 07/11/17 09:00 08/10/17 08:59 07/22/17 08:19 20 UNITS Isosorbide Mononitrate (Imdur Ext Rel Tab) 60 mg QAM PO 07/11/17 09:00 08/10/17 08:59 07/22/17 08:11 60 MG Lisinopril (Zestril Tab) 5 mg DAILY PO 07/11/17 09:00 08/10/17 08:59 07/22/17 08:11 5 MG Mycophenolate Mofetil (Cellcept Cap) 250 mg BID PO 07/10/17 21:00 08/09/17 20:59 07/22/17 08:12 250 MG Multivitamins/ Minerals (Multivitamin W/ Minerals Tab) 1 tab BID PO 07/10/17 21:00 08/09/17 20:59 07/22/17 08:11 1 TAB Rosuvastatin Calcium (Crestor Tab) 5 mg DAILY PO 07/11/17 09:00 08/10/17 08:59 07/22/17 08:11 5 MG Temazepam (Restoril Cap) 15 mg HS PO 07/10/17 21:00 08/09/17 20:59 07/20/17 20:14 15 MG Lansoprazole (Prevacid Solutab) 30 mg DAILY PO 07/11/17 09:00 08/10/17 08:59 07/22/17 08:11 30 MG Diclofenac Sodium (Voltaren 1% Top Gel) 1 appln QID EXT 07/10/17 21:00 08/09/17 20:59 07/22/17 11:42 1 APPLN Insulin Aspart (novoLOG ASPART) SLIDING SCALE If C... ACHS SC 07/10/17 21:00 08/09/17 20:59 07/22/17 12:29 4 UNITS Ertapenem 1000 mg/ Sodium Chloride 60 ml @ 100 mls/hr Q24H IV 07/10/17 17:30 07/23/17 23:59 07/23/17 12:13 100 MLS/HR Magnesium Sulfate 1 gm/Prmx 100 ml @ 100 mls/hr ONE ONCE IV 07/12/17 08:00 07/12/17 08:59 DC 07/12/17 08:53 100 MLS/HR Tramadol HCl (Ultram Tab) 50 mg Q4H PRN PO 07/17/17 05:15 08/16/17 05:14 07/22/17 06:19 50 MG Lidocaine (Lidoderm Patch 5%) 1 patch QAM TD 07/19/17 08:00 08/18/17 07:59 07/22/17 08:10 1 PATCH Miscellaneous (Remove Lidoderm Patch) 1 ea DAILY@21 N/A 07/18/17 21:00 08/17/17 20:59 07/22/17 21:00 1 EA Duloxetine HCl (Cymbalta Cap) 60 mg DAILY PO 07/19/17 08:00 08/10/17 08:59 07/22/17 08:12 60 MG (Norah Coy CRNP) Objective Vital Signs Date Time Temp Pulse Resp B/P (MAP) Pulse Ox O2 Delivery O2 Flow Rate FiO2 07/23/17 11:58 36.5 62 18 96 Room Air 07/23/17 08:00 Room Air 07/23/17 00:00 Room Air 07/22/17 16:00 96 Room Air 07/22/17 15:09 36.5 62 18 127/83 (98) 96 Room Air (Norah Coy CRNP) Physical Exam Notes: General: no distress, eyes closed, laying on her side Respiratory: chest non tender, clear to auscultation, normal breath sounds, no respiratory distress, no accessory muscle use Unable to assess other systems due to patient's refusal (Norah Coy CRNP) Assessment and Plan Pt presented with generalized weakness and concern for pyelonephritis she is found to have MRR UTI, the pt is immuno suppressed with a transplanted kidney, with PMHx of Systolic CHF, T2DM, CAD with SD, CKD Stage III, TAMARA, SLE, Schizoaffective Disorder, and Borderline Personality 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 coli - total of 14 days, patient refused US guided IV for outpatient infusions and patient has a history of noncompliance so will keep her inpatient for IV infusions - today is final dose of ertapenem - Cyclosporine 50 mg BID and Cellcept 250 mg BID - repeat blood cultures no growth Generalized Weakness/metabolic encephalopathy: secondary to hydration and illness, resolved PT/OT consult - patient has intermittently participated and supervision is recommended - patient agrees to rehab at [facility] Chronic Systolic CHF and HTN - continue lisinopril Elevated Troponin/ Type II NSTEMI/ H/O CAD with SD: - Trop peaked at 0.26 and trended down - Continue ASA 81 mg daily, Imdur 60 mg daily, Crestor 5 mg daily T2DM controlled while here with compliance and diet - Lantus 20 units SC daily and SSI; Hold Victoza CKD Stage III: continue renal dosing of antibiotics and other meds Schizoaffective Disorder/Borderline Personality Disorder: affects her interaction with staff - Cymbalta 30 mg daily DVT Prophylaxis: Heparin, renal dosed Code Status: DO NOT RESUSCITATE Dispo: awaiting placement (Norah Coy CRNP) RESIDENTIAL SUPPORT SPECIALIST Physician Supervision Note: I discussed with Norah Coy RESIDENTIAL SUPPORT SPECIALIST and agree with findings and plan as documented in the note. Any exceptions or clarifications are listed here: None Patient has no new issues she is on ertapenem for multidrug-resistant UTI associate with immunosuppression from a renal transplant. Her course is likely to be completed while she is an inpatient due to concern for medical compliance as an outpatient family and patient now believes the patient may benefit from rehab stay however she was denied acute rehab will continue discuss this with the family, her vital signs remain stable she is completed her course of ertapenem we are looking to placement she is now agreeable to subacute rehab in case management is working on the process Documented By: Tray Vaca (Tray Vaca M.D.)
[2017-07-23] MEDS: TRAMADOL HCL 50 MG TAB PO PRN ×2 (18:52→23:05)
[2017-07-23] MEDS: TEMAZEPAM 15 MG CAP PO SCH (21:33)
[2017-07-24] MEDS: INSULIN ASPART 100 UNITS/ML 3 ML PEN SC SCH ×2 (06:30→11:00)
[2017-07-24] MEDS: DICLOFENAC SOD 1% GEL 100 GM TUBE EXT SCH ×2 (08:00→12:00)
[2017-07-24] MEDS: ISOSORBIDE MONONITRATE 30 MG TABCR PO SCH (08:00)
[2017-07-24] MEDS: LIDODERM (LIDOCAINE) PATCH 5% TD SCH (08:00)
[2017-07-24] MEDS: DULOXETINE HCL 60 MG CAP PO SCH (08:00)
[2017-07-24] MEDS: LANSOPRAZOLE SOLUTAB 30 MG PO SCH (08:00)
[2017-07-24] MEDS: ASPIRIN 81 MG ECTAB PO SCH (08:00)
[2017-07-24] MEDS: CEROVITE ADV FORMULA TAB PO SCH (08:00)
[2017-07-24] MEDS: ROSUVASTATIN CALCIUM 10 MG TAB PO SCH (08:00)
[2017-07-24] MEDS: INSULIN GLARGINE SOLOSTAR 100 UNITS/ML 3 ML PEN SC SCH (08:00)
[2017-07-24] MEDS: LISINOPRIL 5 MG TAB PO SCH (08:00)
[2017-07-24] MEDS: TRAMADOL HCL 50 MG TAB PO PRN (08:21)
[2017-07-24] MEDS: GABAPENTIN 400 MG CAP PO SCH ×2 (08:21→13:59)
[2017-07-24] MEDS: CycloSPORINE (NEORAL) 25 MG CAP PO SCH (08:21)
[2017-07-24] MEDS: BACLOFEN 10 MG TAB PO SCH ×2 (08:22→13:59)
[2017-07-24] MEDS: MYCOPHENOLATE MOFETIL 250 MG CAP (CELLCEPT) PO SCH (08:22)
[2017-07-24] MEDS: HEPARIN SOD 5000 UNIT/0.5 ML CARP SQ SCH (09:00)
[2017-07-24] MEDS ORDERED: DULO60CA44 PO (11:10)
--- NOTE | 2017-07-24 11:23 | Discharge Summary ---
Discharge Summary Date of Service July 24, 2017. Discharge Summary Admission Date: Jul 12, 2017 at 15:49 Discharge Date: July 24, 2017 Discharge Disposition: senior care facility Principal Diagnosis: MDR UTI and bacteremia Problems/Secondary Diagnoses: Pyelonephritis in L kidney s/p transplant Generalized weakness metabolic encephalopathy Chronic combined systolic and diastolic CHF HTN Elevated troponin Type II NSTEMI h/o CAD with NJ T2DM CKD stage III Schizoaffective disorder borderline personality disorder TAMARA GERD Immunizations: Have You Had Influenza Vaccine: Yes History of Tetanus Vaccine?: Unknown History of Pneumococcal: Yes Pneumococcal Date: Jun 23, 2001 History of Hepatitis B Vaccine: Unknown Procedures: CHEST ONE VIEW PORTABLE CLINICAL HISTORY: ABDOMINAL PAIN/GI pain COMPARISON STUDY: 07/08/2017 FINDINGS: The bones soft tissues and hemidiaphragms are normal. The cardiomediastinal silhouette is normal. The lungs are clear. The pulmonary vasculature is normal. IMPRESSION: Negative chest. The above report was generated using voice recognition software. It may contain grammatical, syntax or spelling errors. Electronically signed by: Clif Motley M.D. 07/10/2017 1:03 PM Dictated Date/Time: 07/10/2017 1:02 PM The status of this report is Signed. Draft = Not yet reviewed or approved by Radiologist. Signed = Reviewed and approved by Radiologist ABD/PELVIS NO IV OR ORAL CONT CT DOSE: 960.43 mGy.cm HISTORY: Flank pain LLQ pain TECHNIQUE: Multiaxial CT images of the abdomen and pelvis were performed without contrast. A dose lowering technique was utilized adhering to the principles of ALARA. COMPARISON STUDY: 12/03/2016 FINDINGS: Minimal dependent bibasilar atelectasis. Configuration of liver and spleen are unremarkable. Pancreas demonstrates fatty replacement. The adrenal glands are normal. Both kidneys are atrophic. There is a 4 mm nonobstructing calculus proximal right ureter which has been present on prior studies is not considered a nonacute finding. Bowel pattern is nonobstructive. There is a left renal pelvic transplant. There is subtle chronic fullness of the left renal pelvis. There is a trace amount of perirenal infiltrative change raising the possibility of mild pyelonephritis. Correlation with urinalysis is suggested. Bladder is midline. It is relatively collapsed. It contains no calcifications. The bowel pattern throughout is nonobstructive. IMPRESSION: 1. Left pelvic renal transplant demonstrating a very subtle increase in density of the perinephric fat. 2. This may be a secondary indication of an underlying component of pyelonephritis. Correlation with urinalysis is suggested. 3. Multiple additional chronic findings unaltered from the prior studies. The above report was generated using voice recognition software. It may contain grammatical, syntax or spelling errors. Electronically signed by: Clif Motley M.D. 07/10/2017 2:38 PM Dictated Date/Time: 07/10/2017 2:30 PM The status of this report is Signed. Draft = Not yet reviewed or approved by Radiologist. Signed = Reviewed and approved by Radiologist CHEST ONE VIEW PORTABLE HISTORY: Increased respiratory rate. Mild shortness of breath. COMPARISON: Chest 07/10/2017. FINDINGS: The lungs are clear. Cardiac silhouette is normal in size. No pleural effusions. No pneumothorax. IMPRESSION: No acute process. Electronically signed by: Garrett Stubbs M.D. 07/11/2017 7:42 AM Dictated Date/Time: 07/11/2017 7:41 AM The status of this report is Signed. Draft = Not yet reviewed or approved by Radiologist. Signed = Reviewed and approved by Radiologist Interpretation Summary * Name: DAY SANDOVAL Study Date: 07/11/2017 01:00 PM BP: 125/74 mmHg * Patient Location: [facility]\\\\15\\S\\[id number] HR: 74 * : 1960 (M/d/yyyy) Gender: Female Height: 64 in * Age: 57 yrs Ethnicity: MO Weight: 180 lb * Ordering Physician: Nelida Robledo * Referring Physician: Self, Referred * Performed By: Gogo Blair RCS * * Reason For Study: AMI, Assess for wall motion abnormalities * BSA: 1.9 m2 * -- Conclusions -- * 1. Moderately dilated left ventricle with mildly reduced systolic function. EF 40-45%. Akinesis of the inferolateral wall and basal inferior wall segments. Otherwise, global hypokinesis. No left ventricular hypertrophy. Type 1 diastolic dysfunction. * 2. The left atrium is mildly dilated. * 3. There is mild mitral regurgitation. * 4. Normal estimated right ventricular systolic pressure. * 5. Compared to prior study on 01/15/2017, LV systolic function has improved. Procedure Details * A complete two-dimensional transthoracic echocardiogram was performed (2D, M- mode, Doppler and color flow Doppler). Left Ventricle * Moderately dilated left ventricle with mildly reduced systolic function. EF 40-45%. Akinesis of the inferolateral wall and basal inferior wall segments. Otherwise, global hypokinesis. No left ventricular hypertrophy. Type 1 diastolic dysfunction. Right Ventricle * The right ventricle is grossly normal size. * The right ventricular systolic function is normal as assessed by tricuspid annular plane systolic excursion (TAPSE) (normal >1.5 cm). Atria * The left atrium is mildly dilated. * Right atrial size is normal. * No ASD visualized. Mitral Valve * There is mild mitral annular calcification. * There is no mitral valve stenosis. * There is mild mitral regurgitation. Tricuspid Valve * The tricuspid valve is not well visualized, but is grossly normal. * There is no tricuspid stenosis. * There is mild tricuspid regurgitation. Aortic Valve * The aortic valve is trileaflet. * No hemodynamically significant valvular aortic stenosis. * There is no significant aortic regurgitation. Pulmonic Valve * The pulmonic valve is not well seen, but is grossly normal. * There is no pulmonic valvular stenosis. * Trace pulmonic valvular regurgitation. Great Vessels * The aortic root is normal size. * Aortic arch of normal dimension. Pericardium/Pleural * There is no pericardial effusion. Great Vessels * Normal inferior vena cava size and collapsability with sniff indicates a normal right atrial pressure of 3 mmHg Consultations: ID- Dr. Torres Psychiatry- Dr. Herndon Medication Reconciliation Changed Medications: Duloxetine Hcl (Cymbalta) 60 Mg Cap 1 CAP PO DAILY for 90 Days, #90 CAP 3 Refills (Changed from: Duloxetine HCl ( Cymbalta) 30 Mg Cap 30 Mg PO DAILY) Continued Medications: Aspirin (Aspirin) 81 Mg Tab 81 MG PO DAILY Baclofen (Lioresal) 10 Mg Tab 10 MG PO TID, TAB Cyclosporine (Neoral) 25 Mg Cap 50 MG PO BID, CAP Dexlansoprazole (Dexilant) 30 Mg Cap 30 MG PO DAILY Diclofenac Sodium (Topical) (Voltaren 1% Top Gel) 1 % Gel 1 APPLN EXT UD Ergocalciferol (Vitamin D 70652 Unit) 50,000 Unit Cap 1 CAP PO WK TAKE THIS EVERY FRIDAY. Famotidine (Pepcid) 20 Mg Tab 20 MG PO TID, TAB Gabapentin (Neurontin) 400 Mg Cap 400 MG PO TID Insulin Glargine (Lantus Solostar) 100 Unit/Ml Inj 20 UNITS SC QAM, PEN Isosorbide Mononitrate Ext Rel (Imdur Ext Rel) 30 Mg Tabcr 60 MG PO QAM, TAB Liraglutide (Victoza) 18 Mg/3 Ml Inj 1.8 MG SQ DAILYBD Lisinopril (Zestril) 5 Mg Tab 5 MG PO DAILY, TAB Multivitamin (Multivitamin) Tab 1 TAB PO DAILY, TAB Mycophenolate Mofetil (Cellcept) 250 Mg Cap 250 MG PO BID Nitroglycerin (Nitrostat) 0.4 Mg Tab 1 TAB SL UD PRN for Chest Pain, #100 TAB 3 Refills Ocuvite Preservision (Ocuvite Preservision) 1 Tab Tab 1 TAB PO BID, TAB Rosuvastatin Calcium (Crestor) 5 Mg Tab 1 TAB PO DAILY Temazepam (Restoril) 15 Mg Cap 15 MG PO HS, CAP Discharge Exam Patient refused to participate in ROS. Patient refused physical exam- stating, "I was told I can't touch you. If I can' t touch you, then you can't touch me." Hospital Course Pt presented with generalized weakness and concern for pyelonephritis she is found to have MRR UTI, the pt is immuno suppressed with a transplanted kidney, with PMHx of Systolic CHF, T2DM, CAD with NJ, CKD Stage III, TAMARA, SLE, Schizoaffective Disorder, and Borderline Personality Pyelonephritis in L kidney s/p transplant, SIRS secondary to MDR UTI/bacteremia : - MDR E Coli in both urine and blood suggesting SIRS on presentation- treated w / IV Ertapenem x14 days per ID recommendations - Pain control w/ Lidocaine patch and Tramadol PRN - Continue Cyclosporine 50 mg BID and CellCept 250 mg BID - Repeat BCx- NGTD Generalized weakness/metabolic encephalopathy secondary to dehydrations/illness : - Treatment as above - PT/OT consulted Chronic combined systolic and diastolic CHF, HTN- STABLE: Continue Lisinopril Elevated troponin, Type II NSTEMI, h/o CAD with NJ- STABLE: - Trended cardiac enzymes- trop peaked at 0.26 - Continue ASA 81 mg daily, Imdur 60 mg daily, Crestor 5 mg daily - ECHO- Akinesis of the inferolateral wall and basal inferior wall segments, EF 40-45%, diastolic dysfunction T2DM- CONTROLLED: - Continue Lantus 20 units SC daily; Hold Victoza while inpatient and resume at discharge - BSG ACHS and ISS CKD stage III- 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 Discussed with Carina DUENAS and agree with findings and plan as documented in the note. Any exceptions or clarifications are listed here: None This patient is in her usual state of health she is agreeable to a half-way facility months quite so sure how long she is going to stay there however this is her best chance of having her be compliant with her medications including her rejection medications. Time of discharge she was still refusing to interact with me she appeared to be in no distress her vitals and labs were reviewed Documented By: Tray Vaca Total Time Spent: Greater than 30 minutes This includes examination of the patient, discharge planning, medication reconciliation, and communication with other providers. Discharge Instructions Please refer to the electronic Patient Visit Report (Discharge Instructions) for additional information. Follow-Up Follow-up with [facility] provider within 24-48 hours Please follow-up with your PCP within 5-7 days after discharge from [facility] Please follow-up/keep all of your subspecialty appointments Additional Copies To Mikala Vásquez; [facility]
--- NOTE | 2017-07-24 11:27 | Discharge Instructions ---
Discharge Instructions Date of Service July 24, 2017. Admission Reason for Admission: Elevated Troponin, Generalized Weakness, Uti Discharge Discharge Diagnosis / Problem: MDR UTI/bacteremia Discharge Goals Goal(s): Decrease discomfort, Improve function, Increase independence, Improve disease control, Learn about illness, Diagnostic testing, Therapeutic intervention, Prevent Disease Progression Activity Recommendations Activity Level: Assistance Required Therapies: Physical Therapy, Occupational Therapy . Additional Information Patient informed of condition: Yes Advance Directives: Yes DNR: Yes Level of Care: Skilled Communicable Disease: No Prognosis: Stable Gonzalez Catheter: No Instructions / Follow-Up Instructions / Follow-Up Pyelonephritis in L kidney s/p transplant, SIRS secondary to MDR UTI/bacteremia : - Treated w/ IV Ertapenem x14 days per ID recommendations - Continue Cyclosporine 50 mg BID and CellCept 250 mg BID Generalized weakness/metabolic encephalopathy secondary to dehydrations/illness : - Treatment as above - PT/OT consulted Chronic combined systolic and diastolic CHF, HTN- STABLE: Continue Lisinopril Elevated troponin, Type II NSTEMI, h/o CAD with CA- STABLE: - Trended cardiac enzymes- trop peaked at 0.26 - Continue ASA 81 mg daily, Imdur 60 mg daily, Crestor 5 mg daily - ECHO- Akinesis of the inferolateral wall and basal inferior wall segments, EF 40-45%, diastolic dysfunction T2DM- CONTROLLED: - Continue Lantus 20 units SC daily; Hold Victoza while inpatient and resume at discharge - BSG ACHS and ISS CKD stage III- 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 1.5- 1.8- STABLE: Renally dose medications as appropriate Schizoaffective disorder, borderline personality disorder - Psychiatry consulted- does not meet inpatient criteria, continue medications and outpatient f/u - Cymbalta 30 mg daily increased to 60 mg daily GERD: Continue Dexilant and Prevacid DVT Prophylaxis: Heparin SQ BID Code Status: LEVEL V, DO NOT RESUSCITATE Dispo: Discharge to [facility] FOLLOW-UPS: Follow-up with [facility] provider within 24-48 hours Please follow-up with your PCP within 5-7 days after discharge from [facility] Please follow-up/keep all of your subspecialty appointments Current Hospital Diet Patient's current hospital diet: AHA Diet (Heart Healthy), Diabetes Type 2 Diet Discharge Diet Recommended Diet: AHA Diet (Heart Healthy), Diabetes Type 2 Diet Pending Studies Studies pending at discharge: no Physician Orders On Transfer Special Precautions: Fall precautions Dressing Changes: None IV Therapy: None Vital Signs: Routine POLST Discussion: without POLST completion Laboratory Results Hemoglobin A1c Test 05/26/17 06:17 Range/Units Estimated Average Glucose 180 mg/dl Hemoglobin A1c 7.9 H 4.5-5.6 % Medical Emergencies . Who to Call and When: Medical Emergencies: If at any time you feel your situation is an emergency, please call 911 immediately. . Non-Emergent Contact Non-Emergency issues call your: Primary Care Provider Call Non-Emergent contact if: you have a fever, your pain is not controlled, your pain is worsening, your pain is unusual for you, your pain is concerning you, you have any medication questions . . "Provider Documentation" section prepared by Carina Chowdhury. . Core Measure Problem Core Measures: None
== END 2017-07-24 15:59 | DRG 689 ==
LOC: C.EDB 11:06 → EDBEDREQ 16:25 → C.2T 16:36 → ENRESERV 16:40 → EDBEDREQ 16:42 → C.2T 19:49 → OBSVTOIN 07-12 15:49 → ENRESERV 07-12 16:10 → C.MS4W 07-12 17:36
PROVIDERS: ADMIT Internal Medicine; ATTEND Internal Medicine
DX: N10 Acute pyelonephritis (principal); G93.41 Metabolic encephalopathy; F33.9 Major depressive disorder, recurrent, unspecified; Z94.0 Kidney transplant status; R65.10 Systemic inflammatory response syndrome (SIRS) of non-infectious origin without acute organ dysfunction; I50.42 Chronic combined systolic (congestive) and diastolic (congestive) heart failure; F41.9 Anxiety disorder, unspecified; F90.9 Attention-deficit hyperactivity disorder, unspecified type; F60.3 Borderline personality disorder; K21.9 Gastro-esophageal reflux disease without esophagitis; I25.10 Atherosclerotic heart disease of native coronary artery without angina pectoris; E11.9 Type 2 diabetes mellitus without complications; I67.9 Cerebrovascular disease, unspecified; I11.0 Hypertensive heart disease with heart failure; M81.0 Age-related osteoporosis without current pathological fracture; E86.0 Dehydration; E83.42 Hypomagnesemia; G47.33 Obstructive sleep apnea (adult) (pediatric); F25.9 Schizoaffective disorder, unspecified; N39.0 Urinary tract infection, site not specified; N18.3 Chronic kidney disease, stage 3 (moderate); M32.9 Systemic lupus erythematosus, unspecified; Z66 Do not resuscitate; Z79.82 Long term (current) use of aspirin; Z87.440 Personal history of urinary (tract) infections; Z88.0 Allergy status to penicillin; Z79.4 Long term (current) use of insulin; I25.2 Old myocardial infarction; Z83.3 Family history of diabetes mellitus; Z82.49 Family history of ischemic heart disease and other diseases of the circulatory system; Z80.1 Family history of malignant neoplasm of trachea, bronchus and lung

== ENCOUNTER 2017-08-02 02:40 | Observation (INO) | payer OTHER ==
[~2017-08-02] VITALS: Ht 162.6 cm; Wt 76.0 kg
[~2017-08-02 02:40] MED LIST changes: -CYM/30 PO; +DICL1GEL12 EXT; +DULO60CA44 PO
--- NOTE | 2017-08-02 03:20 | EMERGENCY ROOM VISIT NOTE ---
History Report prepared by Savi: Shikha Sewell Under the Supervision of: Dr. Garima Pierce D.O. First contact with patient: 02:41 Chief Complaint: MENTAL HEALTH EVALUATION Stated Complaint: MENTAL HEALTH EVALUATION History of Present Illness The patient is a 57 year old female who presents to the Emergency Room with complaints for a mental health evaluation. The patient has been at [facility] since July 24. Per EMS, the patient was throwing food, being disruptive, threatening other residents, and refusing her medications. The patient states " I am not into [facility]" and "I don't talk to fuc shrinks he knows that". The patient admits to refusing her insulin and not allowing [facility] staff to take her blood sugar. Source of History: patient Position: other (generalized) Quality: other (mental health evaluation) Modifying Factors (Relieving): other (none) Review of Systems See HPI for pertinent positives & negatives. A total of 10 systems reviewed and were otherwise negative. Past Medical & Surgical Medical Problems: (1) 302, involuntary commitment (2) Agitation requiring sedation protocol (3) Anxiety (4) Attention deficit hyperactivity disorder (5) Benign hypertension (6) Borderline personality disorder (7) Cerebrovascular disease (8) Coronary artery disease (9) Diabetes mellitus type 2 (10) E. coli septicemia (11) Elevated troponin (12) Gastroesophageal reflux disease (13) Generalized weakness (14) Hyperparathyroidism (15) Kidney transplant status, cadaveric (16) Leukocytosis (17) Major depression, recurrent (18) MDRO (multiple drug resistant organisms) resistance (19) Osteoporosis (20) Sepsis (21) Sleep apnea (22) Systemic lupus erythematosus (23) Urinary tract infection due to extended-spectrum beta lactamase (ESBL) producing Escherichia coli Surgical Problems: (1) Status post coronary artery stent placement (2) Status post kidney transplant (3) Status post parathyroidectomy Family History FH: dementia MOTHER FH: diabetes mellitus SISTER GRANDMOTHER FH: heart disease FATHER MOTHER FH: lung cancer FATHER FH: rheumatoid arthritis SISTER FHx: heart disease Social History Smoking Status: Never Smoker Alcohol Use: none Drug Use: none Marital Status: single Housing Status: lives alone Occupation Status: disabled Current/Historical Medications Scheduled Acetaminophen (Tylenol), 650 MG PO Q6 Aspirin (Aspirin Chewable), 81 MG PO DAILY Atorvastatin (Lipitor), 10 MG PO DAILY Baclofen (Lioresal), 10 MG PO TID Cyclosporine (Neoral), 50 MG PO BID Dexlansoprazole (Dexilant), 30 MG PO DAILY Diclofenac Sodium (Topical) (Voltaren 1% Top Gel), 1 APPLN EXT UD Duloxetine Hcl (Cymbalta), 1 CAP PO DAILY Ergocalciferol (Vitamin D 09086 Unit), 1 CAP PO WK Famotidine (Pepcid), 20 MG PO TID Gabapentin (Neurontin), 400 MG PO TID Insulin Glargine (Lantus Solostar), 20 UNITS SC QAM Isosorbide Mononitrate Ext Rel (Imdur Ext Rel), 60 MG PO QAM Liraglutide (Victoza), 1.8 MG SQ DAILYBD Lisinopril (Zestril), 5 MG PO DAILY Multivitamin (Multivitamin), 1 TAB PO DAILY Mycophenolate Mofetil (Cellcept), 250 MG PO BID Ocuvite Preservision (Ocuvite Preservision), 1 TAB PO BID Temazepam (Restoril), 15 MG PO HS Scheduled PRN Acetaminophen (Tylenol), 1 SUPP RE Q6H PRN for Pain Bisacodyl (Dulcolax), 1 SUPP AR for Constipation Nitroglycerin (Nitrostat), 1 TAB SL UD PRN for Chest Pain Sodium Phosphates (Fleet Enema Six Pack), 1 DOSE RE for Constipation Allergies Coded Allergies: Penicillins (Verified Allergy, Mild, ITCHY, ANXIETY, 08/02/17) Loperamide (Verified Allergy, Unknown, 08/02/17) Vancomycin (Verified Allergy, Unknown, 08/02/17) Ziprasidone (Verified Allergy, Unknown, itching, 08/02/17) Physical Exam Vital Signs Date Time Temp Pulse Resp B/P (MAP) Pulse Ox O2 Delivery O2 Flow Rate FiO2 08/02/17 21:45 62 20 117/74 95 Oxymask 3.0 08/02/17 21:30 71 14 118/70 95 Oxymask 3.0 08/02/17 21:16 67 14 108/71 96 Oxymask 3.0 08/02/17 21:01 67 14 150/82 100 Oxymask 3.0 08/02/17 20:46 72 14 114/77 92 Oxymask 2.0 08/02/17 20:30 78 13 161/87 100 Oxymask 4.0 08/02/17 20:18 89 16 145/84 90 Oxymask 4.0 08/02/17 20:18 90 Oxymask 4.0 08/02/17 20:15 88 Room Air 08/02/17 19:48 95 18 144/104 100 Room Air 08/02/17 19:41 104 08/02/17 02:52 36.9 111 18 205/104 97 Room Air Physical Exam General: Patient is belligerent, screaming expletives, and making threatening statements during my physical exam HEENT: Head - normocephalic and atraumatic Pupils are equal, round, and reactive to light. Extraocular eye muscles are intact, and sclera are anicteric. Nose - moist nasal mucosa without discharge. Mouth - moist buccal mucosa. Oropharynx is nonerythematous and there is no tonsillar exudate or edema noted. Neck: Supple; no JVD, nuchal rigidity, cervical lymphadenopathy. Heart: Regular rate and rhythm. There is a normal S1 and S2 with no murmurs, clicks, or gallops appreciated. Lungs: Clear to auscultation bilaterally with no wheezes, rales, or rhonchi. Abdomen: Soft, completely nontender, nondistended, with good bowel sounds. There are no palpable pulsatile masses or hepatosplenomegaly. There is no guarding, rigidity, or rebound noted. Extremities: No evidence of cyanosis, clubbing, or edema. There are easily palpable peripheral pulses. Skin: warm and dry with good turgor and no rashes. Psych: agitated, angry, admits to not allowing blood sugar checks and not taking insulin while at [facility]. Medical Decision & Procedures Laboratory Results 08/02/17 20:02 Red Blood Count 3.76, Mean Corpuscular Volume 89.1, Mean Corpuscular Hemoglobin 30.6, Mean Corpuscular Hemoglobin Concent 34.3, Mean Platelet Volume 10.2, Neutrophils (%) (Auto) 68.1, Lymphocytes (%) (Auto) 19.5, Monocytes (%) (Auto) 11.2, Eosinophils (%) (Auto) 0.6, Basophils (%) (Auto) 0.4, Neutrophils # (Auto ) 3.35, Lymphocytes # (Auto) 0.96, Monocytes # (Auto) 0.55, Eosinophils # (Auto ) 0.03, Basophils # (Auto) 0.02 08/02/17 20:02 Test 08/02/17 03:33 08/02/17 14:50 08/02/17 20:02 Thyroid Stimulating Hormone (TSH) 1.420 uIu/ml (0.300-4.500) Salicylates Level < 1.7 mg/dl (2.8-20) Acetaminophen Level < 2 ug/ml (10-30) Ethyl Alcohol mg/dL < 3.0 mg/dl (0-3) Urine Color YELLOW Urine Appearance CLEAR (CLEAR) Urine pH 5.0 (4.5-7.5) Urine Specific [place] 1.020 (1.000-1.030) Urine Protein NEG (NEG) Urine Glucose (UA) TRACE (NEG) Urine Ketones NEG (NEG) Urine Occult Blood NEG (NEG) Urine Nitrite NEG (NEG) Urine Bilirubin NEG (NEG) Urine Urobilinogen NEG (NEG) Urine Leukocyte Esterase NEG (NEG) Urine Opiates Screen NEG (NEG) Urine Methadone, Qualitative NEG (NEG) Urine Barbiturates NEG (NEG) Urine Phencyclidine (PCP) Level NEG (NEG) Ur Amphetamine/Methamphetamine NEG (NEG) MDMA (Ecstasy) Screen NEG (NEG) Urine Benzodiazepines Screen NEG (NEG) Urine Cocaine Metabolite NEG (NEG) Urine Marijuana (THC) NEG (NEG) White Blood Count 4.92 K/uL (4.8-10.8) Red Blood Count 3.76 M/uL (4.2-5.4) Hemoglobin 11.5 g/dL (12.0-16.0) Hematocrit 33.5 % (37-47) Mean Corpuscular Volume 89.1 fL (80-100) Mean Corpuscular Hemoglobin 30.6 pg (25-34) Mean Corpuscular Hemoglobin Concent 34.3 g/dl (32-36) Platelet Count 195 K/uL (130-400) Mean Platelet Volume 10.2 fL (7.4-10.4) Neutrophils (%) (Auto) 68.1 % Lymphocytes (%) (Auto) 19.5 % Monocytes (%) (Auto) 11.2 % Eosinophils (%) (Auto) 0.6 % Basophils (%) (Auto) 0.4 % Neutrophils # (Auto) 3.35 K/uL (1.4-6.5) Lymphocytes # (Auto) 0.96 K/uL (1.2-3.4) Monocytes # (Auto) 0.55 K/uL (0.11-0.59) Eosinophils # (Auto) 0.03 K/uL (0-0.5) Basophils # (Auto) 0.02 K/uL (0-0.2) RDW Standard Deviation 47.2 fL (36.4-46.3) RDW Coefficient of Variation 14.5 % (11.5-14.5) Immature Granulocyte % (Auto) 0.2 % Immature Granulocyte # (Auto) 0.01 K/uL (0.00-0.02) Anion Gap 11.0 mmol/L (3-11) Estimated GFR () 34.0 Estimated GFR (Non- 29.3 BUN/Creatinine Ratio 23.3 (10-20) Calcium Level 8.7 mg/dl (8.5-10.1) Total Bilirubin 0.3 mg/dl (0.2-1) Direct Bilirubin 0.1 mg/dl (0-0.2) Aspartate Amino Transf (AST/SGOT) 22 U/L (15-37) Alanine Aminotransferase (ALT/SGPT) 38 U/L (12-78) Alkaline Phosphatase 124 U/L (45-117) Total Creatine Kinase 105 U/L (26-192) Creatine Kinase MB 1.7 ng/ml (0.5-3.6) Creatine Kinase MB Ratio 1.6 (0-3.0) Troponin I < 0.015 ng/ml (0-0.045) Total Protein 7.2 gm/dl (6.4-8.2) Albumin 3.3 gm/dl (3.4-5.0) Lipase 374 U/L (73-393) Beta-Hydroxybutyric Acid 1.76 mg/dL (0.2-2.81) Laboratory results per my review. Medications Administered Medications (Trade) Dose Ordered Sig/Suyapa Route Start Time Stop Time Status Last Admin Dose Admin Haloperidol Lactate (Haldol Inj) 10 mg NOW STAT IM 08/02/17 04:58 08/02/17 05:00 DC 08/02/17 05:12 10 MG Lorazepam (Ativan Inj) 2 mg NOW STAT IM 5/12/18 04:58 08/02/17 05:00 DC 08/02/17 05:11 2 MG Cyclosporine (Neoral Cap) 50 mg BID PO 08/02/17 09:00 08/02/17 23:12 DC 08/02/17 09:00 50 MG Baclofen (Lioresal Tab) 10 mg TID PO 08/02/17 09:00 08/02/17 23:13 DC 08/02/17 14:17 10 MG Gabapentin (Neurontin Cap) 400 mg TID PO 08/02/17 09:00 08/02/17 23:14 DC 08/02/17 14:18 400 MG Isosorbide Mononitrate (Imdur Ext Rel Tab) 60 mg QAM PO 08/02/17 09:00 08/02/17 23:14 DC 08/02/17 09:00 60 MG Mycophenolate Mofetil (Cellcept Cap) 250 mg BID PO 08/02/17 09:00 08/02/17 23:15 DC 08/02/17 09:00 250 MG Haloperidol Lactate (Haldol Inj) 10 mg NOW STAT IM 08/02/17 19:03 08/02/17 19:05 DC 08/02/17 19:11 10 MG Benztropine Mesylate (Cogentin Inj) 2 mg NOW STAT IM 08/02/17 19:03 08/02/17 19:05 DC 08/02/17 19:11 2 MG Lorazepam (Ativan Inj) 2 mg NOW STAT IM 08/02/17 19:03 08/02/17 19:05 DC 08/02/17 19:11 2 MG Ketamine HCl (Ketalar Steri-Vial Inj) 284 mg NOW STAT IV 08/02/17 19:13 08/02/17 19:14 DC 08/02/17 19:19 284 MG Haloperidol Lactate (Haldol Inj) 5 mg NOW STAT IM 08/02/17 19:29 08/02/17 19:31 DC 08/02/17 19:36 5 MG Lorazepam (Ativan Inj) 1 mg NOW STAT IM 08/02/17 19:29 08/02/17 19:31 DC 08/02/17 19:36 1 MG Sodium Chloride 1,000 ml @ 999 mls/hr Q1H1M STAT IV 08/02/17 19:51 08/02/17 20:51 DC 08/02/17 20:06 999 MLS/HR Haloperidol Lactate (Haldol Inj) 5 mg NOW STAT IM 08/02/17 20:00 08/02/17 20:01 DC 08/02/17 20:08 5 MG Lorazepam (Ativan Inj) 1 mg NOW STAT IM 08/02/17 20:00 08/02/17 20:01 DC 08/02/17 20:08 1 MG Ondansetron HCl (Zofran Inj) 4 mg NOW STAT IV 08/02/17 20:12 08/02/17 20:13 DC 08/02/17 20:28 4 MG Procedure Ativan Inj IM, Haldol Inj IM. ED Course 0308: Past medical records reviewed. The patient was evaluated in room A5. A complete history and physical exam was performed. The patient screamed expletives at me the entire time I was in the room. The patient will have laboratory studies drawn to get her medically cleared. 0420: Mobile crisis is here and they have a petitioning statement from a [facility] nurse. Once the patient is medically cleared, I will attempt to talk with her again about the situation. 0432: The patient peed on herself. The nurses changed and cleaned her up. When they moved her back into the bed the patient began claiming they hurt her. She is now complaining of chest pain from being "pulled" back onto the bed. When offered Tylenol she refused. 0452: The patient is still complaining of chest pain. I suggested doing EKG and she told me to "fuck off". The mobile support worker tried to read the patient her rights and the patient refused to listen and continued to yell expletives over her. 0458: The patient continued to be extremely disruptive. She again was threatening me and the staff. I ordered Ativan Inj 2 mg IM, Haldol Inj 10 mg IM. 0554: The patient was only slightly more calm. She is requesting a phone to call her "advocate" Morro. In the past, during previous visits, when the patient has been provided a phone, she has called 911. I attempted to talk to the patient about the situation but she would not have any type of conversation with me. She continued to scream at me. 0730: The patient was signed out to Dr. Macias at the change of shifts. Medical Decision The patient is a 57 year old female who presents to the Emergency Room with complaints for a mental health evaluation. Differential diagnosis includes acute psychosis, medication noncompliance, mood disorder, thought disorder. Lab results show: normal white count, normal H & H, BUN 49, creatinine 1.5, glucose 184, normal LFTs, normal TSH, negative alcohol, Tylenol, and aspirin. This is a 57-year-old female patient with a long-standing history of mental health issues who presents to the emergency department from [facility] after the patient was having extreme outbursts of explosive behavior and was refusing to have her blood sugar checked or take her medications. The staff there felt threatened by her and they felt that she was unable to care for herself or make good decisions. A 302 is petitioned by the staff from [facility]. I did sign this. The patient required close and frequent monitoring as she had to be sedated. Security was with the patient the majority of her stay. Staff from [facility] are performing a bed search at this time. The case was signed out to Dr. Macias change of shift. Medication Reconcilliation Current Medication List: was personally reviewed by me Blood Pressure Screening Patient's blood pressure: Elevated blood pressure Blood pressure disposition: Elevated BP felt to be situational Impression Primary Impression: Outbursts of explosive behavior Additional Impression: Noncompliance with medications Critical Care I have personally spent greater than 30 minutes of critical care time in the direct management of this patient. This includes bedside care, interpretation of diagnostic studies, and testing, discussion with consultants, patient, and family members, and other required patient management activities. This 30 minutes is in excess of all separately billable procedures. Scribe Attestation The scribe's documentation has been prepared under my direction and personally reviewed by me in its entirety. I confirm that the note above accurately reflects all work, treatment, procedures, and medical decision making performed by me. Departure Information Dispostion Still a Patient Referrals Mikala Vásquez (PCP) Patient Instructions [facility] Problem Qualifiers
[2017-08-02 03:53] LABS: BASO % 0.5 %; BASO ABS # 0.03 K/uL (0-0.2); EOS % 1.4 %; EOS ABS # 0.08 K/uL (0-0.5); HEMATOCRIT 36.1 % (37-47); HEMOGLOBIN 12.3 g/dL (12.0-16.0); IG# 0.01 K/uL (0.00-0.02); LYMPH ABS # 2.02 K/uL (1.2-3.4); MEAN CELL VOLUME 89.1 fL (80-100); MEAN CORPUSCULAR HEMOGLOBIN 30.4 pg (25-34); MEAN CORPUSCULAR HGB CONC 34.1 g/dl (32-36); MEAN PLATELET VOLUME 9.8 fL (7.4-10.4); MONO ABS # 0.81 K/uL (0.11-0.59); NEUT % 48.9 %; NEUT ABS # 2.82 K/uL (1.4-6.5); PLATELET COUNT 230 K/uL (130-400); RED CELL DISTRIBUTION WIDTH CV 14.3 % (11.5-14.5); WHITE BLOOD COUNT 5.77 K/uL (4.8-10.8)
[2017-08-02 04:11] LABS: ALBUMIN 3.6 gm/dl (3.4-5.0); ALT/SGPT 41 U/L (12-78); AST/SGOT 21 U/L (15-37); BLOOD UREA NITROGEN 49 mg/dl (7-18); CALCIUM 9.4 mg/dl (8.5-10.1); CARBON DIOXIDE 23 mmol/L (21-32); CREATININE 1.56 mg/dl (0.60-1.20); GLUCOSE 184 mg/dl (70-99); POTASSIUM 4.5 mmol/L (3.5-5.1); SODIUM 141 mmol/L (136-145)
[2017-08-02 04:20] LABS: ALKALINE PHOSPHATASE 138 U/L (45-117); TOTAL PROTEIN 7.8 gm/dl (6.4-8.2)
[2017-08-02] MEDS ORDERED: HALOPERIDOL LACTATE 5 MG/ML 1 ML VIAL IM STA ×4 (04:58→20:00)
[2017-08-02] MEDS ORDERED: LORAZEPAM 2 MG/ML 1 ML VIAL IM STA ×4 (04:58→20:00)
[2017-08-02] MEDS ORDERED: SODI1ENE RE (07:56)
[2017-08-02] MEDS ORDERED: ATOR10TA82 PO (07:56)
[2017-08-02] MEDS ORDERED: BISA10SU3 PR (07:56)
[2017-08-02] MEDS ORDERED: ASPCH81X PO (07:56)
[2017-08-02] MEDS ORDERED: ISOS60TA25 PO (07:56)
[2017-08-02] MEDS ORDERED: ACET-1311 PO (07:56)
[2017-08-02] MEDS ORDERED: ACET650S10 RE (07:56)
[2017-08-02] MEDS ORDERED: TEMAZEPAM 15 MG CAP PO PRN ×2 (08:15→23:30)
[2017-08-02] MEDS ORDERED: ISOSORBIDE MONONITRATE 60 MG TABCR PO SCH (09:00)
[2017-08-02] MEDS: CycloSPORINE (NEORAL) 25 MG CAP PO SCH ×2 (09:00→21:00)
[2017-08-02] MEDS ORDERED: DULOXETINE HCL 60 MG CAP PO SCH (09:00)
[2017-08-02] MEDS ORDERED: LISINOPRIL 5 MG TAB PO SCH (09:00)
[2017-08-02] MEDS: GABAPENTIN 400 MG CAP PO SCH ×3 (09:00→21:00)
[2017-08-02] MEDS: MYCOPHENOLATE MOFETIL 250 MG CAP (CELLCEPT) PO SCH ×2 (09:00→21:00)
[2017-08-02] MEDS: BACLOFEN 10 MG TAB PO SCH ×3 (09:00→21:00)
--- NOTE | 2017-08-02 16:28 | EMERGENCY ROOM VISIT NOTE ---
ED Visit Note First contact with patient: 16:07 Received patient in signout. History and physical verified by me. Patient is currently in the middle of the bed search. Around 1700 the patient's bed search was suspended. At this point the mental health examination rooms were filled with multiple patients. The patient became increasingly agitated and began soiling herself and screaming at the top of her lungs. This resulted in multiple mental health patients becoming agitated by the patient herself. I tried to verbally de-escalate the patient multiple times however the patient is adamantly refusing to be de-escalated and in fact just begin screaming more. The patient also will not stay in her bed has become a threat to herself as well as the other patients in mental health. She was told we will not tolerate this out of control behavior he has for this reason the patient was given multiple rounds of Haldol and Ativan. She received 10 of Haldol and 2 of Ativan. When this did not change the patient's agitation she was then given 270 of ketamine. This resulted in some sedation for approximately 30 minutes however the patient had to be given multiple further doses of Haldol and Ativan 2. Because of the large amount of sedation the patient needed to receive additional laboratory work was obtained. I will note that the patient has a history of renal failure therefore she was given a normal saline bolus. Because the patient was risking a catastrophe and needed to be sedated we moved her into a medical bed so that she can be placed on the monitor for close monitoring. As this patient has had 2 suspended bed search as I feel she would be better served on the hospitalist service with psychiatry following along. A repeat EKG was obtained which showed a normal sinus rhythm with a left bundle branch block rate of [address] elevation or depression. Repeat laboratory work was also obtained. I did discuss the case with the hospitalist Dr. Leo. I have personally spent greater than 90 minutes of critical care time in the direct management of this patient. This includes bedside care, interpretation of diagnostic studies, and testing, discussion with consultants, patient, and family members, and other required patient management activities. This 30 minutes is in excess of all separately billable procedures. Problem List Medical Problems: (1) Anxiety Status: Chronic (2) Attention deficit hyperactivity disorder Status: Chronic (3) Benign hypertension Status: Chronic (4) Borderline personality disorder Status: Chronic (5) Cerebrovascular disease Permanent Comment: s/p stroke Status: Chronic (6) Coronary artery disease Status: Chronic (7) Diabetes mellitus type 2 Status: Chronic (8) Gastroesophageal reflux disease Status: Chronic (9) Hyperparathyroidism Status: Chronic (10) Kidney transplant status, cadaveric Status: Chronic (11) Osteoporosis Status: Chronic (12) Sleep apnea Status: Chronic (13) Systemic lupus erythematosus Status: Chronic Surgical Problems: (1) Status post coronary artery stent placement Permanent Comment: RCA 2005 Status: Chronic (2) Status post kidney transplant Permanent Comment: cadaveric transplant, 1998 Status: Chronic (3) Status post parathyroidectomy Status: Chronic Current/Historical Medications Scheduled Acetaminophen (Tylenol), 650 MG PO Q6 Aspirin (Aspirin Chewable), 81 MG PO DAILY Atorvastatin (Lipitor), 10 MG PO DAILY Baclofen (Lioresal), 10 MG PO TID Cyclosporine (Neoral), 50 MG PO BID Dexlansoprazole (Dexilant), 30 MG PO DAILY Diclofenac Sodium (Topical) (Voltaren 1% Top Gel), 1 APPLN EXT UD Duloxetine Hcl (Cymbalta), 1 CAP PO DAILY Ergocalciferol (Vitamin D 91975 Unit), 1 CAP PO WK Famotidine (Pepcid), 20 MG PO TID Gabapentin (Neurontin), 400 MG PO TID Insulin Glargine (Lantus Solostar), 20 UNITS SC QAM Isosorbide Mononitrate Ext Rel (Imdur Ext Rel), 60 MG PO QAM Liraglutide (Victoza), 1.8 MG SQ DAILYBD Lisinopril (Zestril), 5 MG PO DAILY Multivitamin (Multivitamin), 1 TAB PO DAILY Mycophenolate Mofetil (Cellcept), 250 MG PO BID Ocuvite Preservision (Ocuvite Preservision), 1 TAB PO BID Temazepam (Restoril), 15 MG PO HS Scheduled PRN Acetaminophen (Tylenol), 1 SUPP RE Q6H PRN for Pain Bisacodyl (Dulcolax), [address] for Constipation Nitroglycerin (Nitrostat), 1 TAB SL UD PRN for Chest Pain Sodium Phosphates (Fleet Enema Six Pack), 1 DOSE RE for Constipation Allergies Coded Allergies: Penicillins (Verified Allergy, Mild, ITCHY, ANXIETY, 08/02/17) Loperamide (Verified Allergy, Unknown, 08/02/17) Vancomycin (Verified Allergy, Unknown, 08/02/17) Ziprasidone (Verified Allergy, Unknown, itching, 08/02/17) Vital Signs Date Time Temp Pulse Resp B/P (MAP) Pulse Ox O2 Delivery O2 Flow Rate FiO2 08/02/17 19:48 95 18 144/104 100 Room Air 08/02/17 19:41 104 08/02/17 02:52 36.9 111 18 205/104 97 Room Air Laboratory Results Test 08/02/17 03:33 08/02/17 14:50 08/02/17 19:51 08/02/17 20:02 RDW Standard Deviation 47.0 fL (36.4-46.3) RDW Coefficient of Variation 14.3 % (11.5-14.5) White Blood Count 5.77 K/uL (4.8-10.8) Red Blood Count 4.05 M/uL (4.2-5.4) Hemoglobin 12.3 g/dL (12.0-16.0) Hematocrit 36.1 % (37-47) Mean Corpuscular Volume 89.1 fL (80-100) Mean Corpuscular Hemoglobin 30.4 pg (25-34) Mean Corpuscular Hemoglobin Concent 34.1 g/dl (32-36) Platelet Count 230 K/uL (130-400) Mean Platelet Volume 9.8 fL (7.4-10.4) Neutrophils (%) (Auto) 48.9 % Lymphocytes (%) (Auto) 35.0 % Monocytes (%) (Auto) 14.0 % Eosinophils (%) (Auto) 1.4 % Basophils (%) (Auto) 0.5 % Neutrophils # (Auto) 2.82 K/uL (1.4-6.5) Lymphocytes # (Auto) 2.02 K/uL (1.2-3.4) Monocytes # (Auto) 0.81 K/uL (0.11-0.59) Eosinophils # (Auto) 0.08 K/uL (0-0.5) Basophils # (Auto) 0.03 K/uL (0-0.2) Immature Granulocyte % (Auto) 0.2 % Immature Granulocyte # (Auto) 0.01 K/uL (0.00-0.02) Thyroid Stimulating Hormone (TSH) 1.420 uIu/ml (0.300-4.500) Salicylates Level < 1.7 mg/dl (2.8-20) Acetaminophen Level < 2 ug/ml (10-30) Ethyl Alcohol mg/dL < 3.0 mg/dl (0-3) Urine Color YELLOW Urine Appearance CLEAR (CLEAR) Urine pH 5.0 (4.5-7.5) Urine Specific [place] 1.020 (1.000-1.030) Urine Protein NEG (NEG) Urine Glucose (UA) TRACE (NEG) Urine Ketones NEG (NEG) Urine Occult Blood NEG (NEG) Urine Nitrite NEG (NEG) Urine Bilirubin NEG (NEG) Urine Urobilinogen NEG (NEG) Urine Leukocyte Esterase NEG (NEG) Urine Opiates Screen NEG (NEG) Urine Methadone, Qualitative NEG (NEG) Urine Barbiturates NEG (NEG) Urine Phencyclidine (PCP) Level NEG (NEG) Ur Amphetamine/Methamphetamine NEG (NEG) MDMA (Ecstasy) Screen NEG (NEG) Urine Benzodiazepines Screen NEG (NEG) Urine Cocaine Metabolite NEG (NEG) Urine Marijuana (THC) NEG (NEG) Creatine Kinase MB Ratio (0-3.0) Medications Administered Medications (Trade) Dose Ordered Sig/Suyapa Route Start Time Stop Time Status Last Admin Dose Admin Haloperidol Lactate (Haldol Inj) 10 mg NOW STAT IM 08/02/17 04:58 08/02/17 05:00 DC 08/02/17 05:12 10 MG Lorazepam (Ativan Inj) 2 mg NOW STAT IM 08/02/17 04:58 08/02/17 05:00 DC 08/02/17 05:11 2 MG Cyclosporine (Neoral Cap) 50 mg BID PO 08/02/17 09:00 09/01/17 08:59 08/02/17 09:00 50 MG Baclofen (Lioresal Tab) 10 mg TID PO 08/02/17 09:00 09/01/17 08:59 08/02/17 14:17 10 MG Gabapentin (Neurontin Cap) 400 mg TID PO 08/02/17 09:00 09/01/17 08:59 08/02/17 14:18 400 MG Isosorbide Mononitrate (Imdur Ext Rel Tab) 60 mg QAM PO 08/02/17 09:00 09/01/17 08:59 5/12/18 09:00 60 MG Mycophenolate Mofetil (Cellcept Cap) 250 mg BID PO 08/02/17 09:00 09/01/17 08:59 08/02/17 09:00 250 MG Haloperidol Lactate (Haldol Inj) 10 mg NOW STAT IM 08/02/17 19:03 08/02/17 19:05 DC 08/02/17 19:11 10 MG Benztropine Mesylate (Cogentin Inj) 2 mg NOW STAT IM 08/02/17 19:03 08/02/17 19:05 DC 08/02/17 19:11 2 MG Lorazepam (Ativan Inj) 2 mg NOW STAT IM 08/02/17 19:03 08/02/17 19:05 DC 08/02/17 19:11 2 MG Ketamine HCl (Ketalar Steri-Vial Inj) 284 mg NOW STAT IV 08/02/17 19:13 08/02/17 19:14 DC 08/02/17 19:19 284 MG Haloperidol Lactate (Haldol Inj) 5 mg NOW STAT IM 08/02/17 19:29 08/02/17 19:31 DC 08/02/17 19:36 5 MG Lorazepam (Ativan Inj) 1 mg NOW STAT IM 08/02/17 19:29 08/02/17 19:31 DC 08/02/17 19:36 1 MG Sodium Chloride 1,000 ml @ 999 mls/hr Q1H1M STAT IV 08/02/17 19:51 08/02/17 20:51 08/02/17 20:06 999 MLS/HR Haloperidol Lactate (Haldol Inj) 5 mg NOW STAT IM 08/02/17 20:00 08/02/17 20:01 DC 08/02/17 20:08 5 MG Lorazepam (Ativan Inj) 1 mg NOW STAT IM 08/02/17 20:00 08/02/17 20:01 DC 08/02/17 20:08 1 MG Departure Information Impression Primary Impression: Outbursts of explosive behavior Additional Impression: Noncompliance with medications Dispostion Still a Patient Referrals Mikala Vásquez Patient Instructions [facility] Problem Qualifiers
[2017-08-02] MEDS ORDERED: BENZTROPINE MESYLATE 1 MG/ML 2 ML AMP IM STA (19:03)
[2017-08-02] MEDS ORDERED: HALOPERIDOL LACTATE 5 MG/ML 1 ML VIAL ONE (19:04)
[2017-08-02] MEDS ORDERED: BENZTROPINE MESYLATE 1 MG/ML 2 ML AMP ONE (19:04)
[2017-08-02] MEDS ORDERED: LORAZEPAM 2 MG/ML 1 ML VIAL ONE (19:04)
[2017-08-02] MEDS ORDERED: KETAMINE HCL INJ 50 MG/ML 10 ML VIAL IV STA (19:13)
[2017-08-02] MEDS ORDERED: SODIUM CHLORIDE 0.9% 1000ML 1,000 ML IV STA (19:51)
[2017-08-02] MEDS ORDERED: ONDANSETRON INJ 2 MG/ML 2 ML VIAL IV STA (20:12)
[2017-08-02 20:13] LABS: BASO % 0.4 %; BASO ABS # 0.02 K/uL (0-0.2); EOS % 0.6 %; EOS ABS # 0.03 K/uL (0-0.5); HEMATOCRIT 33.5 % (37-47); HEMOGLOBIN 11.5 g/dL (12.0-16.0); IG# 0.01 K/uL (0.00-0.02); LYMPH % 19.5 %; LYMPH ABS # 0.96 K/uL (1.2-3.4); MEAN CELL VOLUME 89.1 fL (80-100); MEAN CORPUSCULAR HEMOGLOBIN 30.6 pg (25-34); MEAN CORPUSCULAR HGB CONC 34.3 g/dl (32-36); MEAN PLATELET VOLUME 10.2 fL (7.4-10.4); MONO % 11.2 %; MONO ABS # 0.55 K/uL (0.11-0.59); NEUT % 68.1 %; NEUT ABS # 3.35 K/uL (1.4-6.5); PLATELET COUNT 195 K/uL (130-400); RED CELL DISTRIBUTION WIDTH CV 14.5 % (11.5-14.5); RED CELL DISTRIBUTION WIDTH SD 47.2 fL (36.4-46.3); WHITE BLOOD COUNT 4.92 K/uL (4.8-10.8)
[2017-08-02] MEDS ORDERED: MULTIVITAMIN TAB PO SCH (20:30)
[2017-08-02] MEDS ORDERED: ATORVASTATIN 10 MG TAB PO SCH (20:30)
[2017-08-02] MEDS ORDERED: ASPIRIN 81 MG CHEW PO SCH (20:30)
[2017-08-02] MEDS ORDERED: PANTOprazole SOD 40 MG TAB PO SCH (20:30)
--- NOTE | 2017-08-02 20:40 | DIAGNOSTIC IMAGING REPORT ---
CHEST ONE VIEW PORTABLE HISTORY: 57 years-old Female Pt c/o agitation acute altered mental status COMPARISON: Chest radiograph 07/11/2017 TECHNIQUE: Portable AP view of the chest FINDINGS: The patient is slightly rotated to the left. Cardiac silhouette is mildly enlarged. No pneumothorax, pleural effusion, focal airspace consolidation or overt pulmonary edema. Degenerative changes of the shoulders and spine. IMPRESSION: No acute process. The above report was generated using voice recognition software. It may contain grammatical, syntax or spelling errors. Electronically signed by: Joshua Johnson M.D. 08/02/2017 8:38 PM Dictated Date/Time: 08/02/2017 8:37 PM
[2017-08-02 20:46] LABS: ALBUMIN 3.3 gm/dl (3.4-5.0); ALT/SGPT 38 U/L (12-78); AST/SGOT 22 U/L (15-37); BLOOD UREA NITROGEN 43 mg/dl (7-18); CALCIUM 8.7 mg/dl (8.5-10.1); CARBON DIOXIDE 21 mmol/L (21-32); CREATININE 1.86 mg/dl (0.60-1.20); GLUCOSE 317 mg/dl (70-99); LIPASE 374 U/L (73-393); POTASSIUM 4.3 mmol/L (3.5-5.1); SODIUM 140 mmol/L (136-145)
[2017-08-02 20:49] LABS: TOTAL PROTEIN 7.2 gm/dl (6.4-8.2)
[2017-08-02 20:56] LABS: ALKALINE PHOSPHATASE 124 U/L (45-117); CKMB 1.7 ng/ml (0.5-3.6)
[2017-08-02] MEDS ORDERED: FAMOTIDINE 20 MG TAB PO SCH (21:00)
[2017-08-02] MEDS ORDERED: INSULIN IV INFUSION PROTOCOL STA (21:22)
[2017-08-02] MEDS ORDERED: INSULIN PROTOCOL GOAL RANGE ONE (21:30)
[2017-08-02] MEDS ORDERED: BISACODYL 10 MG SUPP PR PRN (21:30)
[2017-08-02] MEDS ORDERED: IV FLUIDS COMPLETED PRN (22:00)
--- NOTE | 2017-08-02 22:22 | History and Physical ---
History & Physical Date & Time of Service: August 02, 2017 at 21:47 Chief Complaint: Mental Health Evaluation Primary Care Physician: Dennis Marie M.D. History of Present Illness Source: hospital records Patient is a 57yo female who was sent from [facility] to the ER early this AM for disruptive behavior. Per reports the patient was yelling at the staff, stating that she doesn't want help, threstening to starve herself. She was refusing all medications and was verbally aggressive and throwing food. This prompted transfer to [facility] and a subsequent 302. The patient was waiting for placement when, around 1700 today she became acutely agitated . She stooled herself and was screaming and yelling at the staff. As she became a threat to herself, staff and other patients she was medically restrained with Haldol and Ativan. The patient required multiple doses of Haldol (5mg x 2, 10mg x 2 doses) , (Ativan 1mg x 2 doses 2mg x 2 doses) and Ketamine. Due to large volume of sedation she is being admitted to medicine. Past Medical/Surgical History 1) 302, involuntary commitment (2) Anxiety (3) Attention deficit hyperactivity disorder (4) Benign hypertension (5) Borderline personality disorder (6) Cerebrovascular disease (7) Coronary artery disease (8) Diabetes mellitus type 2 (9) E. coli septicemia (10) Elevated troponin (11) Gastroesophageal reflux disease (12) Generalized weakness (13) Hyperparathyroidism (14) Kidney transplant status, cadaveric (15) Leukocytosis (16) Major depression, recurrent (17) MDRO (multiple drug resistant organisms) resistance (18) Osteoporosis (19) Sepsis (20) Sleep apnea (21) Systemic lupus erythematosus (22) Urinary tract infection due to extended-spectrum beta lactamase (ESBL) producing Escherichia coli Surgical Problems: (1) Status post coronary artery stent placement (2) Status post kidney transplant (3) Status post parathyroidectomy Family History FH: dementia MOTHER FH: diabetes mellitus SISTER GRANDMOTHER FH: heart disease FATHER MOTHER FH: lung cancer FATHER FH: rheumatoid arthritis SISTER FHx: heart disease Social History Smoking Status: Never Smoker Drug Use: none Marital Status: single Housing status: lives alone Occupational Status: disabled Immunizations History of Influenza Vaccine: Yes History of Tetanus Vaccine?: Unknown History of Pneumococcal: Yes Pneumococcal Date: Jun 23, 2001 History of Hepatitis B Vaccine: Unknown Allergies Coded Allergies: Penicillins (Verified Allergy, Mild, ITCHY, ANXIETY, 08/02/17) Loperamide (Verified Allergy, Unknown, 08/02/17) Vancomycin (Verified Allergy, Unknown, 08/02/17) Ziprasidone (Verified Allergy, Unknown, itching, 08/02/17) Home Medications Scheduled Acetaminophen (Tylenol), 650 MG PO Q6 Aspirin (Aspirin Chewable), 81 MG PO DAILY Atorvastatin (Lipitor), 10 MG PO DAILY Baclofen (Lioresal), 10 MG PO TID Cyclosporine (Neoral), 50 MG PO BID Dexlansoprazole (Dexilant), 30 MG PO DAILY Diclofenac Sodium (Topical) (Voltaren 1% Top Gel), 1 APPLN EXT UD Duloxetine Hcl (Cymbalta), 1 CAP PO DAILY Ergocalciferol (Vitamin D 79800 Unit), 1 CAP PO WK Famotidine (Pepcid), 20 MG PO TID Gabapentin (Neurontin), 400 MG PO TID Insulin Glargine (Lantus Solostar), 20 UNITS SC QAM Isosorbide Mononitrate Ext Rel (Imdur Ext Rel), 60 MG PO QAM Liraglutide (Victoza), 1.8 MG SQ DAILYBD Lisinopril (Zestril), 5 MG PO DAILY Multivitamin (Multivitamin), 1 TAB PO DAILY Mycophenolate Mofetil (Cellcept), 250 MG PO BID Ocuvite Preservision (Ocuvite Preservision), 1 TAB PO BID Temazepam (Restoril), 15 MG PO HS Scheduled PRN Acetaminophen (Tylenol), 1 SUPP RE Q6H PRN for Pain Bisacodyl (Dulcolax), 1 SUPP NC for Constipation Nitroglycerin (Nitrostat), 1 TAB SL UD PRN for Chest Pain Sodium Phosphates (Fleet Enema Six Pack), 1 DOSE RE for Constipation Review of Systems unable to obtain Physical Exam Vital Signs Date Time Temp Pulse Resp B/P (MAP) Pulse Ox O2 Delivery O2 Flow Rate FiO2 08/02/17 21:30 71 14 118/70 95 Oxymask 3.0 08/02/17 21:16 67 14 108/71 96 Oxymask 3.0 08/02/17 21:01 67 14 150/82 100 Oxymask 3.0 08/02/17 20:46 72 14 114/77 92 Oxymask 2.0 08/02/17 20:30 78 13 161/87 100 Oxymask 4.0 08/02/17 20:18 89 16 145/84 90 Oxymask 4.0 08/02/17 20:18 90 Oxymask 4.0 08/02/17 20:15 88 Room Air 08/02/17 19:48 95 18 144/104 100 Room Air 08/02/17 19:41 104 08/02/17 02:52 36.9 111 18 205/104 97 Room Air General: sedated, opening eyes to verbal stimuli, moving 4 extremities Skin: intact HEENT: NC/AT, PERRL, anicteric, MMM, no JVD, no thyromegaly, trachea midline Heart: +S1/S2, regular, no m/r/g Lungs: CTA, no rales/rhonchi/wheezes Abd: +BS, soft, NT/ND Ext: no edema Diagnostics Laboratory Results Results Past 24 Hours Test 08/02/17 03:33 08/02/17 14:50 08/02/17 20:02 Range/Units White Blood Count 5.77 4.92 4.8-10.8 K/uL Red Blood Count 4.05 3.76 4.2-5.4 M/uL Hemoglobin 12.3 11.5 12.0-16.0 g/dL Hematocrit 36.1 33.5 37-47 % Mean Corpuscular Volume 89.1 89.1 80-100 fL Mean Corpuscular Hemoglobin 30.4 30.6 25-34 pg Mean Corpuscular Hemoglobin Concent 34.1 34.3 32-36 g/dl Platelet Count 230 195 130-400 K/uL Mean Platelet Volume 9.8 10.2 7.4-10.4 fL Neutrophils (%) (Auto) 48.9 68.1 % Lymphocytes (%) (Auto) 35.0 19.5 % Monocytes (%) (Auto) 14.0 11.2 % Eosinophils (%) (Auto) 1.4 0.6 % Basophils (%) (Auto) 0.5 0.4 % Neutrophils # (Auto) 2.82 3.35 1.4-6.5 K/uL Lymphocytes # (Auto) 2.02 0.96 1.2-3.4 K/uL Monocytes # (Auto) 0.81 0.55 0.11-0.59 K/uL Eosinophils # (Auto) 0.08 0.03 0-0.5 K/uL Basophils # (Auto) 0.03 0.02 0-0.2 K/uL RDW Standard Deviation 47.0 47.2 36.4-46.3 fL RDW Coefficient of Variation 14.3 14.5 11.5-14.5 % Immature Granulocyte % (Auto) 0.2 0.2 % Immature Granulocyte # (Auto) 0.01 0.01 0.00-0.02 K/uL Sodium Level 141 140 136-145 mmol/L Potassium Level 4.5 4.3 3.5-5.1 mmol/L Chloride Level 112 108 98-107 mmol/L Carbon Dioxide Level 23 21 21-32 mmol/L Anion Gap 6.0 11.0 3-11 mmol/L Blood Urea Nitrogen 49 43 7-18 mg/dl Creatinine 1.56 1.86 0.60-1.20 mg/dl Estimated GFR () 42.0 34.0 Estimated GFR (Non- 36.2 29.3 BUN/Creatinine Ratio 31.1 23.3 10-20 Random Glucose 184 317 70-99 mg/dl Calcium Level 9.4 8.7 8.5-10.1 mg/dl Total Bilirubin 0.3 0.3 0.2-1 mg/dl Direct Bilirubin 0.1 0.1 0-0.2 mg/dl Aspartate Amino Transf (AST/SGOT) 21 22 15-37 U/L Alanine Aminotransferase (ALT/SGPT) 41 38 12-78 U/L Alkaline Phosphatase 138 124 45-117 U/L Total Protein 7.8 7.2 6.4-8.2 gm/dl Albumin 3.6 3.3 3.4-5.0 gm/dl Thyroid Stimulating Hormone (TSH) 1.420 0.300-4.500 uIu/ml Salicylates Level < 1.7 2.8-20 mg/dl Acetaminophen Level < 2 10-30 ug/ml Ethyl Alcohol mg/dL < 3.0 0-3 mg/dl Urine Color YELLOW Urine Appearance CLEAR CLEAR Urine pH 5.0 4.5-7.5 Urine Specific [place] 1.020 1.000-1.030 Urine Protein NEG NEG Urine Glucose (UA) TRACE NEG Urine Ketones NEG NEG Urine Occult Blood NEG NEG Urine Nitrite NEG NEG Urine Bilirubin NEG NEG Urine Urobilinogen NEG NEG Urine Leukocyte Esterase NEG NEG Urine Opiates Screen NEG NEG Urine Methadone, Qualitative NEG NEG Urine Barbiturates NEG NEG Urine Phencyclidine (PCP) Level NEG NEG Ur Amphetamine/Methamphetamine NEG NEG MDMA (Ecstasy) Screen NEG NEG Urine Benzodiazepines Screen NEG NEG Urine Cocaine Metabolite NEG NEG Urine Marijuana (THC) NEG NEG Total Creatine Kinase 105 26-192 U/L Creatine Kinase MB 1.7 0.5-3.6 ng/ml Creatine Kinase MB Ratio 1.6 0-3.0 Troponin I < 0.015 0-0.045 ng/ml Lipase 374 73-393 U/L Beta-Hydroxybutyric Acid 1.76 0.2-2.81 mg/dL Diagnostic Radiology CHEST ONE VIEW PORTABLE HISTORY: 57 years-old Female Pt c/o agitation acute altered mental status COMPARISON: Chest radiograph 07/11/2017 TECHNIQUE: Portable AP view of the chest FINDINGS: The patient is slightly rotated to the left. Cardiac silhouette is mildly enlarged. No pneumothorax, pleural effusion, focal airspace consolidation or overt pulmonary edema. Degenerative changes of the shoulders and spine. IMPRESSION: No acute process. The above report was generated using voice recognition software. It may contain grammatical, syntax or spelling errors. Impression Assessment and Plan 57yo female with multiple medical problems presenting with agitation and aggressive behavior leading to 302. Patient became aggressive and agitated this evening requiring multiple sedating medications. 1. Agitation/sedation - patient with cough reflex, protecting airway, adequate oxygenation on Oxymask -continuous pulse oximetry -Ativan PRN -Telemetry monitoring -EKG in AM to assess QT interval after multiple Haldol doses -Psychiatry evaluation, when medically optimized anticipate transfer to Psychiatry service -Patient's recent behavior is concerning for possible manic vs psychotic episode. Will check TSH/B12/Folate/RPR. ?imaging at discretion of primary team 2. S/p renal transplant - patient on Cyclosporine and Cellcept as outpatient. She is presently NPO due to AMS/somnolence -Will give Solumedrol 50mg IV daily while NPO -When patient is tolerating PO will resume home immunosuppressive agents and discontinue Solumedrol 3. CAD - stable -Continue ASA, Lipitor, Lisinopril and Isosorbide mononitrate 4. GERD - stable -Protonix IV daily 5. Chronic pain - -Continue Neurontin 400mg po TID -Continue Baclofen 10mg po TID -Continue Cymbalta 60mg po daily 6. Hyperglycemia - PY=328, patient refusing insulin at [facility] -Insulin gtt per protocol -Fingersticks q hour -Resume home regimen when blood sugars are better controlled 7. F/E/N - NSS at 75mL/hr x 2 liters, monitor electrolytes and replete as needed , Resuscitation Status VTE Prophylaxis Will order VTE Prophylaxis: Yes
[2017-08-02] MEDS ORDERED: LORAZEPAM 2 MG/ML 1 ML VIAL IV PRN (22:30)
[2017-08-02] MEDS ORDERED: DEXTROSE 50% 50 ML SYR IV PRN (22:45)
[2017-08-02] MEDS ORDERED: GLUCAGON FOR INJ 1 MG VIAL IM PRN (22:45)
[2017-08-02] MEDS ORDERED: CARBOHYDRATES FOR HYPOGLYCEMIA PO PRN (22:45)
[2017-08-02] MEDS ORDERED: GLUCOSE 40% GEL 15 GM TUBE PO PRN (22:45)
[2017-08-02] MEDS ORDERED: GLUCOSE 10 TABS/TUBE PO PRN (22:45)
[2017-08-02] MEDS ORDERED: NovoLIN R BOLUS FROM BAG IV ONE (22:45)
[2017-08-02] MEDS ORDERED: INSULIN REGULAR 250 UNITS in SODIUM CHLORIDE 0.9% 250ML 250 ML IV SCH (23:00)
[2017-08-02 23:20] VITALS: BP 149/69; PULSE 61; TEMP 36.4; O2SAT 100; Ht 162.6 cm; Wt 76.0 kg
[2017-08-02] MEDS ORDERED: METHYLPREDNISOLONE IV 50 MG in SYRINGE 0 ML IV SCH (23:30)
[2017-08-02] MEDS: SODIUM CHLORIDE 0.9% 1000ML 1,000 ML IV SCH (23:36)
[2017-08-02] MEDS: HEPARIN SOD 5000 UNIT/0.5 ML CARP SQ SCH (23:37)
[2017-08-02 23:59] VITALS: O2SAT 100
[2017-08-03] VITALS (24 sets, daily range): BP systolic 118–157; BP diastolic 62–90; PULSE 42–146; TEMP 36.4–37; O2SAT 90–100
[2017-08-03 04:20] LABS: HEMATOCRIT 34.6 % (37-47); HEMOGLOBIN 11.5 g/dL (12.0-16.0); MEAN CELL VOLUME 91.8 fL (80-100); MEAN CORPUSCULAR HEMOGLOBIN 30.5 pg (25-34); MEAN CORPUSCULAR HGB CONC 33.2 g/dl (32-36); MEAN PLATELET VOLUME 9.9 fL (7.4-10.4); PLATELET COUNT 212 K/uL (130-400); RED CELL DISTRIBUTION WIDTH CV 14.7 % (11.5-14.5); RED CELL DISTRIBUTION WIDTH SD 49.2 fL (36.4-46.3); WHITE BLOOD COUNT 4.56 K/uL (4.8-10.8)
[2017-08-03 04:37] LABS: CALCIUM 8.8 mg/dl (8.5-10.1); CREATININE 1.61 mg/dl (0.60-1.20); PHOSPHORUS 3.3 mg/dl (2.5-4.9); POTASSIUM 5.3 mmol/L (3.5-5.1)
[2017-08-03] MEDS: HEPARIN SOD 5000 UNIT/0.5 ML CARP SQ SCH ×2 (05:40→14:00)
[2017-08-03] MEDS: INSULIN ASPART 100 UNITS/ML 3 ML PEN SC SCH ×2 (08:00→12:00)
[2017-08-03] MEDS ORDERED: INSULIN ASPART 100 UNITS/ML 3 ML PEN SC SCH ×2 (08:00→21:00)
[2017-08-03] MEDS ORDERED: CycloSPORINE (NEORAL) 25 MG CAP PO SCH (09:00)
[2017-08-03] MEDS ORDERED: DULOXETINE HCL 60 MG CAP PO SCH (09:00)
[2017-08-03] MEDS ORDERED: MYCOPHENOLATE MOFETIL 250 MG CAP (CELLCEPT) PO SCH (09:00)
[2017-08-03] MEDS ORDERED: LISINOPRIL 5 MG TAB PO SCH (09:00)
[2017-08-03] MEDS ORDERED: ASPIRIN 81 MG ECTAB PO SCH (09:00)
[2017-08-03] MEDS ORDERED: PANTOprazole SOD 40 MG TAB PO SCH (09:00)
[2017-08-03] MEDS: BACLOFEN 10 MG TAB PO SCH ×2 (09:00→14:00)
[2017-08-03] MEDS ORDERED: FAMOTIDINE 20 MG TAB PO SCH ×2 (09:00)
[2017-08-03] MEDS ORDERED: ISOSORBIDE MONONITRATE 60 MG TABCR PO SCH (09:00)
[2017-08-03] MEDS ORDERED: ASPIRIN 81 MG CHEW PO SCH (09:00)
[2017-08-03] MEDS ORDERED: MULTIVITAMIN TAB PO SCH ×2 (09:00)
[2017-08-03] MEDS: GABAPENTIN 400 MG CAP PO SCH ×2 (09:00→14:00)
[2017-08-03] MEDS ORDERED: ATORVASTATIN 10 MG TAB PO SCH ×2 (09:00)
[2017-08-03] MEDS ORDERED: PANTOprazole INJ 40 MG in SYRINGE 0 ML IV SCH (11:00)
--- NOTE | 2017-08-03 11:35 | Psychiatric Consultation ---
Psychiatric Consultation Date of Service: August 03, 2017. Kecia is a 57-year-old woman well known to our service as well as the emergency department and medicine, for multiple medical problems as well as borderline personality disorder. She recently has had a series of hospitalizations during which she has been agitated and uncooperative. We have seen her on multiple occasions. She consistently denies that she is suicidal and complains that no one cares about her and sees her own as inevitable. We have not recommended inpatient treatment as her symptoms are a function of her borderline personality disorder and not likely amenable to short-term inpatient treatment. After her last hospitalization here at [facility], she was discharged on July 24 to [facility]. According to the records, her behavior has been increasingly agitated. She is noted to have been disruptive, throwing food , threatening the other residents. She was refusing to have her blood sugar taken and refusing her insulin and then making threats to starve herself to . She was then brought to our emergency department for mental health evaluation. A 302 was completed by the emergency department physician and a bed search ensued. More than 30 facilities have refused to admit her at this point. She became increasingly agitated, disruptive and uncooperative in the emergency department to the point of constant yelling, and being incontinent of bowel and bladder in her bed. Due to escalating behaviors that put herself and others at risk, she was given Haldol and Ativan in multiple doses as well as ketamine. It was then decided to admit her for medical monitoring given her chronic medical conditions and her degree of sedation. Today when I attempt to see her, she is somnolent. She partially arouses to verbal. She indicates that she needs to go to the bathroom but denies that she has plans to starve herself anymore. She is not disrespectful nor yelling at me which is unusual but will not continue the interview because she is focused only on going back to sleep and using the bathroom. A more complete interview will need to be attempted tomorrow when she is more alert, and I will take the liberty of writing a Haldol 5 mg every 4 hours as needed in the event she becomes disruptive belligerent and unsafe in the near future. I am told that [facility] was contacted, and they are willing to take her back. I believe the focus of the intervention needs to be behavioral as opposed to medications. I am still of the belief that a short-term inpatient mental health hospitalization will do little to mediate the underlying borderline personality disorder, but she has been 302 mood and so our choices are either to dissolve the 302 with an indication that she is safe to return to [facility], or proceed with a bed search. We are currently unable to take her on our unit as we have a room down and have no medically necessary private room available. I will sign this out to the psychiatric team tomorrow who will make another attempt to see her.
[2017-08-03] MEDS ORDERED: HALOPERIDOL LACTATE 5 MG/ML 1 ML VIAL IV PRN (11:45)
[2017-08-03] MEDS: SODIUM CHLORIDE 0.9% 1000ML 1,000 ML IV SCH (14:27)
--- NOTE | 2017-08-03 23:27 | Progress Note ---
Subjective Date of Service: August 03, 2017. Subjective Pt evaluation today including: conversation w/ patient Patient seen and examined at 17:00 Patient is somnolent. She responds to verbal stimuli but states she is sleepy. Problem List Medical Problems: (1) Acute diarrhea Status: Acute (2) Acute electrocardiogram changes Status: Acute (3) Acute psychosis Status: Acute (4) Acute renal failure Status: Acute (5) Altered mental status Status: Acute (6) Anxiety Status: Chronic (7) Attention deficit hyperactivity disorder Status: Chronic (8) Back pain Status: Acute (9) CHF (congestive heart failure) Status: Acute (10) Chronic pain Status: Acute (11) Chronic pain Status: Acute (12) Diarrhea Status: Acute (13) Generalized weakness Status: Acute (14) Hyperkalemia Status: Acute (15) Hypothermia Status: Acute (16) Immunosuppression Status: Acute (17) Influenza A Status: Acute (18) Joint pain Status: Acute (19) Joint pain Status: Acute (20) Low back pain Status: Acute (21) Lower abdominal pain Status: Acute (22) Mood disorder Status: Acute (23) Nausea & vomiting Status: Acute (24) Noncompliance with medications Status: Acute (25) Outbursts of explosive behavior Status: Acute (26) Patient refused evaluation Status: Acute (27) Pyelonephritis Status: Acute (28) Refusal of care by patient Status: Acute (29) Renal insufficiency Status: Acute (30) Sepsis Status: Acute (31) Thrombocytopenia Status: Acute (32) Urinary tract infection Status: Acute (33) Weakness Status: Acute Review of Systems unable to obtain ROS due to patient's somnolence. All Other Systems: Reviewed and Negative Medications Current Inpatient Medications Medications (Trade) Dose Ordered Sig/Suyapa Route Start Time Stop Time Status Last Admin Dose Admin Heparin Sodium (Porcine) (Heparin Sq 5000 Unit/0.5ml) 5,000 unit Q8 SQ 08/02/17 23:30 09/01/17 23:29 08/03/17 05:40 5,000 UNIT Sodium Chloride 1,000 ml @ 75 mls/hr [id number] IV 08/02/17 23:15 08/04/17 01:54 08/03/17 14:27 75 MLS/HR Bisacodyl (Dulcolax Supp) 10 mg DAILY PRN WV 08/02/17 21:30 09/01/17 21:29 Miscellaneous Information (Order Awaiting Action) 1 ea QS N/A 08/03/17 08:00 09/02/17 07:59 Pantoprazole Sodium 40 mg/ Syringe 10 ml @ 5 mls/min DAILY@11 IV 08/03/17 11:00 09/02/17 10:59 08/03/17 14:52 5 MLS/MIN Methylprednisolone Sodium Succinate 50 mg/Syringe 0.8 ml @ 1.5 mls/min HS IV 08/02/17 23:30 09/01/17 23:29 08/02/17 23:36 1.5 MLS/MIN Miscellaneous (Iv Fluids Completed) 1 ea PRN PRN N/A 08/02/17 22:00 08/02/18 21:59 Lorazepam (Ativan Inj) 2 mg Q4 PRN IV 08/02/17 22:30 09/01/17 22:29 08/03/17 21:15 2 MG Glucose (Glucose 40% Gel) 15-30 GRAMS 15 GRAMS... UD PRN PO 08/02/17 22:45 09/01/17 22:44 Glucose (Glucose Chew Tab) 4-8 Tablets 4 Tabl... UD PRN PO 08/02/17 22:45 09/01/17 22:44 Dextrose (Dextrose 50% 50ML Syringe) 25-50ML 25ML FOR ... UD PRN IV 08/02/17 22:45 09/01/17 22:44 Glucagon (Glucagon Inj) 1 mg UD PRN IM 08/02/17 22:45 09/01/17 22:44 Carbohydrates (Carbohydrates For Hypoglycemia) 15-30 GRAMS 15 grams if BSG 54-69... UD PRN PO 08/02/17 22:45 09/01/17 22:44 Cyclosporine (Neoral Cap) 50 mg BID PO 08/03/17 09:00 09/02/17 08:59 Baclofen (Lioresal Tab) 10 mg TID PO 08/03/17 09:00 09/02/17 08:59 Duloxetine HCl (Cymbalta Cap) 60 mg QAM PO 08/03/17 09:00 09/02/17 08:59 Gabapentin (Neurontin Cap) 400 mg TID PO 08/03/17 09:00 09/02/17 08:59 Isosorbide Mononitrate (Imdur Ext Rel Tab) 60 mg QAM PO 08/03/17 09:00 09/02/17 08:59 Lisinopril (Zestril Tab) 5 mg QAM PO 08/03/17 09:00 09/02/17 08:59 Mycophenolate Mofetil (Cellcept Cap) 250 mg BID PO 08/03/17 09:00 09/02/17 08:59 Temazepam (Restoril Cap) 15 mg HS PRN PO 08/02/17 23:30 09/01/17 23:29 Aspirin (Ecotrin Tab) 81 mg QAM PO 08/03/17 09:00 09/02/17 08:59 Atorvastatin Calcium (Lipitor Tab) 10 mg QAM PO 08/03/17 09:00 09/02/17 08:59 Famotidine (Pepcid Tab) 20 mg BID PO 08/03/17 09:00 09/02/17 08:59 Multivitamins (Multivitamin Tab) 1 tab QAM PO 08/03/17 09:00 09/02/17 08:59 Haloperidol Lactate (Haldol Inj) 5 mg Q4H PRN IV 08/03/17 11:45 09/02/17 11:44 08/03/17 19:49 5 MG Insulin Aspart (novoLOG ASPART) SLIDING SCALE ACHS SC 08/03/17 21:00 09/02/17 20:59 Objective Vital Signs Date Time Temp Pulse Resp B/P (MAP) Pulse Ox O2 Delivery O2 Flow Rate FiO2 08/03/17 20:00 146 25 95 Room Air 08/03/17 20:00 95 Room Air 08/03/17 16:11 95 Room Air 08/03/17 16:01 37.0 49 16 132/79 (96) 95 08/03/17 16:00 47 15 94 08/03/17 15:01 55 15 145/90 (108) 95 08/03/17 15:00 58 18 94 Room Air 08/03/17 14:01 45 17 141/69 (93) 100 08/03/17 14:00 45 17 100 08/03/17 13:01 53 14 129/69 (89) 99 08/03/17 13:00 47 19 99 08/03/17 12:01 37.0 54 14 118/66 (83) 97 Oxymask 3.0 08/03/17 12:00 52 15 90 08/03/17 12:00 98 Oxymask 3.0 08/03/17 11:01 53 15 146/75 (98) 98 08/03/17 11:00 60 14 98 08/03/17 10:01 43 14 139/64 (89) 99 08/03/17 10:00 51 15 98 08/03/17 09:01 46 14 133/71 (91) 97 08/03/17 09:00 45 18 95 08/03/17 08:01 52 15 130/76 (94) 99 08/03/17 08:00 50 15 97 08/03/17 07:15 98 Oxymask 3.0 08/03/17 07:01 36.8 42 15 131/62 (85) 100 Oxymask 3.0 08/03/17 07:00 44 14 99 08/03/17 04:00 36.4 70 13 157/84 (108) 97 Oxymask 3.0 08/03/17 04:00 98 Oxymask 3.0 08/02/17 23:59 100 Oxymask 3.0 Physical Exam General Appearance: WD/WN, + pertinent finding (somnolent) Eyes: normal inspection ENT: normal ENT inspection Neck: supple, no adenopathy Respiratory/Chest: chest non-tender, lungs clear, normal breath sounds Cardiovascular: regular rate, rhythm, no edema Abdomen: normal bowel sounds, non tender, soft Neurologic/Psychiatric: alert, oriented x 3 Skin: normal color Lymphatic: no adenopathy Laboratory Results Last 24 Hours Test 08/03/17 00:06 08/03/17 01:03 08/03/17 02:07 08/03/17 02:59 Bedside Glucose 141 mg/dl 115 mg/dl 115 mg/dl 132 mg/dl Test 08/03/17 03:58 08/03/17 04:01 08/03/17 05:07 08/03/17 05:56 White Blood Count 4.56 K/uL Red Blood Count 3.77 M/uL Hemoglobin 11.5 g/dL Hematocrit 34.6 % Mean Corpuscular Volume 91.8 fL Mean Corpuscular Hemoglobin 30.5 pg Mean Corpuscular Hemoglobin Concent 33.2 g/dl RDW Standard Deviation 49.2 fL RDW Coefficient of Variation 14.7 % Platelet Count 212 K/uL Mean Platelet Volume 9.9 fL Sodium Level 143 mmol/L Potassium Level 5.3 mmol/L Chloride Level 114 mmol/L Carbon Dioxide Level 23 mmol/L Anion Gap 6.0 mmol/L Blood Urea Nitrogen 42 mg/dl Creatinine 1.61 mg/dl Est Creatinine Clear Calc Drug Dose 37.9 ml/min Estimated GFR () 40.4 Estimated GFR (Non- 34.9 BUN/Creatinine Ratio 26.4 Random Glucose 142 mg/dl Calcium Level 8.8 mg/dl Phosphorus Level 3.3 mg/dl Magnesium Level 1.9 mg/dl Vitamin B12 Level 625 pg/mL Folate 18.07 ng/mL Bedside Glucose 147 mg/dl 156 mg/dl 162 mg/dl Test 08/03/17 06:30 08/03/17 07:09 08/03/17 08:42 08/03/17 10:04 Urine Color YELLOW Urine Appearance CLEAR Urine pH 5.0 Urine Specific [place] 1.017 Urine Protein NEG Urine Glucose (UA) TRACE Urine Ketones NEG Urine Occult Blood NEG Urine Nitrite NEG Urine Bilirubin NEG Urine Urobilinogen NEG Urine Leukocyte Esterase NEG Bedside Glucose 131 mg/dl 118 mg/dl 118 mg/dl Test 08/03/17 12:11 08/03/17 14:19 08/03/17 15:28 Bedside Glucose 93 mg/dl 79 mg/dl 98 mg/dl Assessment and Plan 57yo female with multiple medical problems presenting with agitation and aggressive behavior leading to 302. Patient became aggressive and agitated this evening requiring multiple sedating medications. 1. Agitation/sedation - patient with cough reflex, protecting airway, adequate oxygenation on Oxymask -continuous pulse oximetry - Haldol PRN, Ativan PRN -Telemetry monitoring -EKG in AM to assess QT interval after multiple Haldol doses -Psychiatry evaluation, when medically optimized anticipate transfer to Psychiatry service -Patient remains somnolent at this time. -will continue to monitor her. Will resume PO meds in AM.. Negative toxicology -psych saw patient today and recommended to reassess her in AM as she was very somnolent. -Patient's recent behavior is concerning for possible manic vs psychotic episode. Will check TSH/B12/Folate/RPR. will hold off further imaging at this time. 2. S/p renal transplant - patient on Cyclosporine and Cellcept as outpatient. She is presently NPO due to AMS/somnolence -Will give Solumedrol 50mg IV daily while NPO -When patient is tolerating PO will resume home immunosuppressive agents and discontinue Solumedrol 3. CAD - stable -Continue ASA, Lipitor, Lisinopril and Isosorbide mononitrate 4. GERD - stable -Protonix IV daily 5. Chronic pain - -Continue Neurontin 400mg po TID -Continue Baclofen 10mg po TID -Continue Cymbalta 60mg po daily 6. Hyperglycemia - [id number] on admission, patient refusing insulin at [facility] -Blood sugar is better controlled now. -will dc insulin drip. -will resume long acting insulin tomorrow. -Fingersticks q hour -Resume home regimen when blood sugars are better controlled
--- NOTE | 2017-08-04 00:30 | Discharge Instructions ---
Discharge Instructions Date of Service August 04, 2017. Admission Reason for Admission: Agitation Requiring Sedation Protocol Discharge Discharge Diagnosis / Problem: Behavioral Disturbance Discharge Goals Goal(s): Improve function, Increase independence Activity Recommendations Activity Limitations: resume your previous activity . Instructions / Follow-Up Instructions / Follow-Up Patient being discharged to Mental Health Facility. Care to continue per facility standards. Current Hospital Diet Patient's current hospital diet: Diabetes Type 2 Diet Discharge Diet Recommended Diet: Regular Diet Fluid Restriction: None Pending Studies Studies pending at discharge: no Laboratory Results Hemoglobin A1c Test 05/26/17 06:17 Range/Units Estimated Average Glucose 180 mg/dl Hemoglobin A1c 7.9 H 4.5-5.6 % Medical Emergencies . Who to Call and When: Medical Emergencies: If at any time you feel your situation is an emergency, please call 911 immediately. . Non-Emergent Contact Non-Emergency issues call your: Specialist . . "Provider Documentation" section prepared by Susan Leo. .
[2017-08-04 00:35] VITALS: BP 132/79; PULSE 146; TEMP 37; O2SAT 95
--- NOTE | 2017-08-08 09:42 | Discharge Summary ---
Discharge Summary Date of Service August 08, 2017. Discharge Summary Admission Date: August 02, 2017 at 21:50 Discharge Date: August 04, 2017 Discharge Disposition: Acute care mental health Principal Diagnosis: Agitation requiring sedation Problems/Secondary Diagnoses: (1) Anxiety Status: Chronic (2) Attention deficit hyperactivity disorder Status: Chronic Immunizations: Have You Had Influenza Vaccine: Yes History of Tetanus Vaccine?: Unknown History of Pneumococcal: Yes Pneumococcal Date: Jun 23, 2001 History of Hepatitis B Vaccine: Unknown Medication Reconciliation Continued Medications: Acetaminophen (Tylenol) 325 Mg Tab 650 MG PO Q6 for Pain, TAB Acetaminophen (Tylenol) 650 Mg Supp 1 SUPP RE Q6H PRN for Pain Aspirin (Aspirin Chewable) 81 Mg Chew 81 MG PO DAILY Atorvastatin (Lipitor) 10 Mg Tab 10 MG PO DAILY, TAB Baclofen (Lioresal) 10 Mg Tab 10 MG PO TID, TAB Bisacodyl (Dulcolax) 10 Mg Sup 1 SUPP MA PRN for Constipation, SUP Cyclosporine (Neoral) 25 Mg Cap 50 MG PO BID, CAP Dexlansoprazole (Dexilant) 30 Mg Cap 30 MG PO DAILY Diclofenac Sodium (Topical) (Voltaren 1% Top Gel) 1 % Gel 1 APPLN EXT UD Duloxetine Hcl (Cymbalta) 60 Mg Cap 1 CAP PO DAILY for 90 Days, #90 CAP 3 Refills Ergocalciferol (Vitamin D 94472 Unit) 50,000 Unit Cap 1 CAP PO WK TAKE THIS EVERY FRIDAY. Famotidine (Pepcid) 20 Mg Tab 20 MG PO TID, TAB Gabapentin (Neurontin) 400 Mg Cap 400 MG PO TID Insulin Glargine (Lantus Solostar) 100 Unit/Ml Inj 20 UNITS SC QAM, PEN Isosorbide Mononitrate Ext Rel (Imdur Ext Rel) 60 Mg Ertab 60 MG PO QAM, TAB Liraglutide (Victoza) 18 Mg/3 Ml Inj 1.8 MG SQ DAILYBD Lisinopril (Zestril) 5 Mg Tab 5 MG PO DAILY, TAB Multivitamin (Multivitamin) Tab 1 TAB PO DAILY, TAB Mycophenolate Mofetil (Cellcept) 250 Mg Cap 250 MG PO BID Nitroglycerin (Nitrostat) 0.4 Mg Tab 1 TAB SL UD PRN for Chest Pain, #100 TAB 3 Refills Ocuvite Preservision (Ocuvite Preservision) 1 Tab Tab 1 TAB PO BID, TAB Sodium Phosphates (Fleet Enema Six Pack) 1 Lucie Lucie 1 DOSE RE PRN for Constipation Temazepam (Restoril) 15 Mg Cap 15 MG PO HS, CAP Discharge Exam Patient was uncooperative with discharge exam. She would not allow vital signs to be taken or other elements of the physical exam be conducted. At time of discharge she was sitting up in a chair, agitated and emotional about her discharge. Her speech was clear, moving all extremities. Hospital Course 57yo female with multiple medical problems presenting with agitation and aggressive behavior leading to 302. Patient became aggressive and agitated this evening requiring multiple sedating medications. 1. Agitation/sedation - patient with cough reflex, protecting airway, adequate oxygenation on Oxymask -continuous pulse oximetry -Ativan PRN -Telemetry monitoring -EKG in AM to assess QT interval after multiple Haldol doses -Psychiatry evaluation, when medically optimized anticipate transfer to Psychiatry service -Patient's recent behavior is concerning for possible manic vs psychotic episode. Will check TSH/B12/Folate/RPR. ?imaging at discretion of primary team 2. S/p renal transplant - patient on Cyclosporine and Cellcept as outpatient. She is presently NPO due to AMS/somnolence -Will give Solumedrol 50mg IV daily while NPO -When patient is tolerating PO will resume home immunosuppressive agents and discontinue Solumedrol 3. CAD - stable -Continue ASA, Lipitor, Lisinopril and Isosorbide mononitrate 4. GERD - stable -Protonix IV daily 5. Chronic pain - -Continue Neurontin 400mg po TID -Continue Baclofen 10mg po TID -Continue Cymbalta 60mg po daily 6. Hyperglycemia - [id number], patient refusing insulin at [facility] -Insulin gtt per protocol -Fingersticks q hour -Resume home regimen when blood sugars are better controlled 7. F/E/N - NSS at 75mL/hr x 2 liters, monitor electrolytes and replete as needed , Hospital Course: Patient was admitted to telemetry unit for continued monitoring. She was somnolent but arousable during hospital day 1. On hospital day 2 she woke up and was again very agitated. Nursing notified me that patient had a bed become available at an inpatient mental health facility in [place]. I evaluated the patient for discharge. She was uncooperative with physical exam. Labs and vital signs reviewed. Patient transferred to inpatient mental health facility. 1. Agitation - patient with history of borderline personality disorder. She was evaluated by psychiatry during her hospital stay. She is to be continued on her outpatient regimen. 2. S/P renal transplant - patient was treated with steroids while unable to tolerate PO intake. She is now able to take PO. She is to be continued on her outpatient regimen of immunosuppressives. 3. CAD - stable. No active issues during her hospital stay. She is to be continued on her outpatient regimen, ASA and Atorvastatin. Imdur, Nitroglycerin PRN and Lisinopril. 4. GERD - stable. No active issues during her hospital stay. She is to be continued on her outpatient Pepcid 5. Diabetes - patient was initially managed with an insulin gtt due to hyperglycemia on arrival. She is to continue on her outpatient insulin regimen 6. Chronic pain - to continue outpatient regimen Total Time Spent: Less than 30 minutes This includes examination of the patient, discharge planning, medication reconciliation, and communication with other providers. Discharge Instructions Please refer to the electronic Patient Visit Report (Discharge Instructions) for additional information. Follow-Up Patient being discharged to inpatient mental health facility. Continuation of care per facility standards.
== END 2017-08-04 01:25 ==
LOC: C.EDA 02:40 → EDBD 02:40 → C.MSICU 21:50 → EDBEDREQ 21:55 → ENRESERV 22:04
PROVIDERS: ADMIT Internal Medicine; ATTEND Internal Medicine
DX: R45.1 Restlessness and agitation (principal); F41.9 Anxiety disorder, unspecified; F90.9 Attention-deficit hyperactivity disorder, unspecified type; R46.89 Other symptoms and signs involving appearance and behavior; I25.10 Atherosclerotic heart disease of native coronary artery without angina pectoris; E11.65 Type 2 diabetes mellitus with hyperglycemia; Z91.14 Patient's other noncompliance with medication regimen; I10 Essential (primary) hypertension; F60.3 Borderline personality disorder; K21.9 Gastro-esophageal reflux disease without esophagitis; Z94.0 Kidney transplant status; M81.0 Age-related osteoporosis without current pathological fracture; M32.9 Systemic lupus erythematosus, unspecified; Z87.440 Personal history of urinary (tract) infections; Z95.5 Presence of coronary angioplasty implant and graft; E89.2 Postprocedural hypoparathyroidism; Z82.49 Family history of ischemic heart disease and other diseases of the circulatory system; Z82.61 Family history of arthritis; Z83.3 Family history of diabetes mellitus; Z79.82 Long term (current) use of aspirin; Z88.0 Allergy status to penicillin; Z88.1 Allergy status to other antibiotic agents; Z88.8 Allergy status to other drugs, medicaments and biological substances

== ENCOUNTER 2018-04-22 11:52 | Inpatient (IN) ==
[2018-04-22] MEDS ORDERED: SODIUM CHLORIDE 0.9% 1000ML 1,000 ML IV SCH (12:15)
[2018-04-22 12:21] LABS: Basophils # (auto) 0.03 K/uL (0-0.2); Basophils % (auto) 0.3 %; Eosinophils # (auto) 0.06 K/uL (0-0.5); Eosinophils % (auto) 0.5 %; Hematocrit (blood only) 34.5 % (37-47); Hemoglobin 11.5 g/dL (12.0-16.0); Immature Granulocytes # (auto) 0.02 K/uL (0.00-0.02); Immature Granulocytes % (auto) 0.2 %; Lymphocytes # (auto) 1.66 K/uL (1.2-3.4); Lymphocytes % (auto) 14.1 %; Mean Corpuscular Hgb Conc 33.3 g/dL (32-36); Mean Corpuscular Volume 89.4 fL (80-100); Mean Platelet Volume 10.5 fL (7.4-10.4); Monocytes # (auto) 1.52 K/uL (0.11-0.59); Monocytes % (auto) 12.9 %; Neutrophils # (auto) 8.49 K/uL (1.4-6.5); Platelet Count 203 K/uL (130-400); RDW Coefficient of Variation 14.6 % (11.5-14.5); RDW Standard Deviation 47.4 fL (36.4-46.3); Red Blood Count 3.86 M/uL (4.2-5.4); White Blood Count 11.78 K/uL (4.8-10.8)
--- NOTE | 2018-04-22 12:28 | Emergency Department Note ---
Entered by Mariluz Maya acting as a scribe for History of Present Illness General Chief complaint: Chest Pain Stated complaint: Increased Weakness Time Seen by Provider: 04/22/18 12:03 Source: patient Mode of arrival: ambulatory Limitations: no limitations History of Present Illness Provider complaint: Chest pain Onset (ago): day(s) 4 Location: chest Severity: moderate Pain Consistency: + now resolved Associated symptoms: + denies other symptoms and + weakness; no nausea/vomiting Patient is a 58 year old female presenting to the ED with chest pain beginning x4 days ago. Pain is moderate in severity, constant since onset and worsening with laying down. Patient notes pain has improved currently, but she does not feel back to normal. She notes that she has felt increasingly weak over the past x3 weeks, and it has worsened since onset. Patient includes that she did fall multiple times onto her knees within the past few days, and had to crawl to the couch to help lift herself up. She denies falling today. Patient includes she was seen in the ED x10 days ago for similar sx, but notes she was not at weak at that time. Patient shares that she was discharged home with an antibiotic for UTI. Patient notes she did not have any urinary sx at that time when given the antibiotic for UTI. Patient includes she did have mild diarrhea after weakness onset began. She shares that she did have loss of appetite yesterday. She denies any fevers, chills, current nausea, vomiting, abd pain, SOB or any other complaints or concerns at this time. Patient lastly shares she lives at home and uses [employer] for case management. Home Medications Home Medications Medication Instructions Recorded Confirmed Type gabapentin 400 mg PO TID 12/30/17 04/22/18 History mycophenolate mofetil 250 mg PO BID 12/30/17 04/22/18 History baclofen 10 mg PO TID 01/14/18 04/22/18 History carvedilol [Coreg] 12.5 mg PO BID 01/14/18 04/22/18 History cyclosporine modified 100 mg PO BID 01/14/18 04/22/18 History insulin aspart U-100 [Novolog 0 unit SUBCUT TIDM 01/14/18 04/10/18 History Flexpen U-100 Insulin] insulin glargine [Basaglar KwikPen 0 unit SUBCUT DAILY 01/14/18 04/10/18 History U-100 Insulin] bupropion HCl [Wellbutrin SR] 150 mg PO QAM 04/10/18 04/22/18 History loperamide [Imodium A-D] 2 mg PO DIRECTED PRN 04/10/18 04/22/18 History lorazepam [Ativan] 1 mg PO BID PRN 04/10/18 04/22/18 History trazodone 50 mg PO HS 04/10/18 04/22/18 History buspirone 5 mg PO TID PRN 04/22/18 04/22/18 History sodium bicarbonate 650 mg PO TID 04/22/18 04/22/18 History Allergies Allergy/AdvReac Type Severity Reaction Status Date / Time Penicillins Allergy Mild ITCHY, Verified 04/22/18 14:08 ANXIETY glipizide Allergy Unknown Unknown Verified 04/22/18 14:08 loperamide Allergy Unknown Unknown Verified 04/22/18 14:08 metformin Allergy Unknown Unknown Verified 04/22/18 14:08 vancomycin Allergy Unknown Unknown Verified 04/22/18 14:08 ziprasidone Allergy Unknown itching Verified 04/22/18 14:08 Past Med/Surg History Medical History Hypertension GERD (gastroesophageal reflux disease) Diabetes CAD (coronary artery disease) Cerebrovascular disease (Chronic) "s/p stroke" Sleep apnea (Chronic) Kidney transplant status, cadaveric (Chronic) Systemic lupus erythematosus (Chronic) Mood disorder (Inactive) Acute chest pain Acute kidney injury Chest pain Dehydration E. 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 and A total of 10 systems reviewed and were otherwise negative Physical Exam Vital Signs Vital Signs - 24 hr 04/22/18 11:45 04/22/18 12:15 04/22/18 12:30 Temperature 37.5 C Temperature Source Oral Sepsis Recent Fever Within 48 Hours No Sepsis Action Taken by Nursing No Action Required Pulse Rate 68 62 61 Pulse Rate [Right Finger] Pulse Rhythm Regular Pulse Rhythm [Right Finger] Pulse Strength Normal Pulse Strength [Right Finger] Respiratory Rate 20 20 32 H Respiratory Effort / Characteristics Non-Labored Spontaneous Respiratory Depth Normal Respiratory Pattern Regular Blood Pressure 118/62 Blood Pressure [Right Arm] Blood Pressure Mean 80 Blood Pressure Mean [Right Arm] Blood Pressure Position Lying Blood Pressure Position [Right Arm] Pulse Oximetry 94 93 93 Oxygen Delivery Method Room Air 04/22/18 12:44 04/22/18 13:00 04/22/18 13:01 Temperature Temperature Source Sepsis Recent Fever Within 48 Hours Sepsis Action Taken by Nursing Pulse Rate 60 59 L 59 L Pulse Rate [Right Finger] Pulse Rhythm Pulse Rhythm [Right Finger] Pulse Strength Pulse Strength [Right Finger] Respiratory Rate 30 H 29 H 31 H Respiratory Effort / Characteristics Respiratory Depth Respiratory Pattern Blood Pressure 113/64 104/63 Blood Pressure [Right Arm] Blood Pressure Mean 80 76 Blood Pressure Mean [Right Arm] Blood Pressure Position Blood Pressure Position [Right Arm] Pulse Oximetry 93 93 94 Oxygen Delivery Method 04/22/18 13:30 04/22/18 13:31 04/22/18 14:00 Temperature Temperature Source Sepsis Recent Fever Within 48 Hours Sepsis Action Taken by Nursing Pulse Rate 59 L 58 L 57 L Pulse Rate [Right Finger] Pulse Rhythm Pulse Rhythm [Right Finger] Pulse Strength Pulse Strength [Right Finger] Respiratory Rate 28 H 31 H 31 H Respiratory Effort / Characteristics Respiratory Depth Respiratory Pattern Blood Pressure 105/65 125/73 Blood Pressure [Right Arm] Blood Pressure Mean 78 90 Blood Pressure Mean [Right Arm] Blood Pressure Position Blood Pressure Position [Right Arm] Pulse Oximetry 93 93 95 Oxygen Delivery Method 04/22/18 16:20 04/22/18 18:00 Temperature Temperature Source Sepsis Recent Fever Within 48 Hours Sepsis Action Taken by Nursing Pulse Rate 63 Pulse Rate [Right Finger] 65 Pulse Rhythm Pulse Rhythm [Right Finger] Regular Pulse Strength Pulse Strength [Right Finger] Normal Respiratory Rate 20 18 Respiratory Effort / Characteristics Non-Labored Spontaneous Respiratory Depth Normal Respiratory Pattern Regular Blood Pressure 146/98 H Blood Pressure [Right Arm] 143/88 H Blood Pressure Mean Blood Pressure Mean [Right Arm] 106 Blood Pressure Position Blood Pressure Position [Right Arm] Lying Pulse Oximetry 96 95 Oxygen Delivery Method Room Air Room Air GENERAL: Awake, alert, no acute distress. Fatigued. HENT: Normocephalic, atraumatic. Oropharynx with dry mucous membranes and otherwise unremarkable. EYES: Normal conjunctiva. Sclera non-icteric. NECK: Supple. No nuchal rigidity. FROM. No JVD. RESPIRATORY: Clear to auscultation. CARDIAC: Regular rate, normal rhythm. Extremities warm and well perfused. Pulses equal. ABDOMEN: Soft, non-distended. No tenderness to palpation. No rebound or guarding. No masses. RECTAL: Deferred. MUSCULOSKELETAL: Chest examination reveals no tenderness. The back is symmetrical on inspection without obvious abnormality. There is no CVA tenderness to palpation. No joint edema. LOWER EXTREMITIES: Calves are equal size bilaterally and non-tender. No edema. No discoloration. NEURO: Normal sensorium. No sensory or motor deficits noted. Moving all extremities equally with 4/5 strength and SILT. SKIN: No rash or jaundice noted. Course 1205: Past medical records reviewed. The patient was evaluated in room C07, and a complete history and physical examination were performed. 1600: Updated that patient wishes to be admitted to [facility]. information technology project manager will discuss admission options with patient. 1615: information technology project manager notified patient and provider that patient did not fit criteria for admission to [facility]. Patient was offered alternative placement in nursing facility, patient declined option. Updated provider that patient wishes to be discharged home. information technology project manager found that patient does have Meals on Wheels and patient's own piano case maker will take her home. 1629: Spoke with ED Pharmacist, patient will be given fosfomycin. 1649: Reassessed patient. Patient's sx have improved. 1701: Updated on patient's plan for discharge. Discharge pending patient's piano case maker arrival. 1744: Informed by nurse that patient is now saying she is suicidal. Psych piano case maker will discuss with patient. 1845: Spoke with David Lopez [facility] [employer], who stated he will try to have patient admitted to [address] [place] [address]. Administered Medications Discontinued Medications Fosfomycin Tromethamine (Monurol) 3 gm PO NOW STA Stop: 04/22/18 16:37 Last Admin: 04/22/18 17:50 Dose: 3 gm Sodium Chloride (Nss 1000ml) 1,000 mls @ 999 mls/hr IV .Q1H1M NICK Stop: 04/22/18 13:15 Last Infusion: 04/22/18 16:51 Dose: 0 mls/hr Infusion: 04/22/18 16:22 Dose: 999 mls/hr Admin: 04/22/18 12:15 Dose: 125 mls/hr Insulin Human Regular (Novolin R U-100 Per Unit) 6 units IV NOW STA Stop: 04/22/18 21:08 Last Admin: 04/22/18 21:12 Dose: 6 units Magnesium Oxide (Mag-Ox) 400 mg PO NOW STA Stop: 04/22/18 13:17 Last Admin: 04/22/18 13:41 Dose: 400 mg Potassium Phosphate (Phospha 250 Neutral 155-852-130 Mg) 2 tab PO NOW STA Stop: 04/22/18 13:17 Last Admin: 04/22/18 13:41 Dose: 2 tab Medical Decision Making Differential Diagnosis Differential diagnosis: Etiologies such as metabolic, infection, hypo/hyperglycemia, electrolyte abnormalities, cardiac sources, intracerebral event, toxicologic, neurologic, as well as others were entertained. Medical Records Attestation: I reviewed the patient's medical records. Home Medications Current Medication List: was personally reviewed by me Laboratory Data Attestation: I reviewed the patient's lab results. Result diagrams: 04/22/18 11:05 04/22/18 11:05 Lab Results 04/22/18 04/22/18 04/22/18 Range/Units 11:05 11:05 12:06 WBC 11.78 H (4.8-10.8) K/uL RBC 3.86 L (4.2-5.4) M/uL Hgb 11.5 L (12.0-16.0) g/dL Hct 34.5 L (37-47) % MCV 89.4 (80-100) fL MCH 29.8 (25-34) pg MCHC 33.3 (32-36) g/dL RDW Std Deviation 47.4 H (36.4-46.3) fL RDW Coeff of Jaspal 14.6 H (11.5-14.5) % Plt Count 203 (130-400) K/uL MPV 10.5 H (7.4-10.4) fL Immature Gran % (Auto) 0.2 % Neut % (Auto) 72.0 % Lymph % (Auto) 14.1 % [place] % (Auto) 12.9 % Eos % (Auto) 0.5 % Baso % (Auto) 0.3 % Immature Gran # (Auto) 0.02 (0.00-0.02) K/uL Neut # (Auto) 8.49 H (1.4-6.5) K/uL Lymph # (Auto) 1.66 (1.2-3.4) K/uL [place] # (Auto) 1.52 H (0.11-0.59) K/uL Eos # (Auto) 0.06 (0-0.5) K/uL Baso # (Auto) 0.03 (0-0.2) K/uL Sodium 130 L (136-145) mmol/L Potassium 4.5 (3.5-5.1) mmol/L Chloride 101 (98-107) mmol/L Carbon Dioxide 22 (21-32) mmol/L Anion Gap 7.0 (3-11) BUN 28 H (7-18) mg/dl Creatinine 1.62 H (0.6-1.2) mg/dl Est Cr Clr Drug Dosing Not Reportable Est GFR ( Amer) 39.9 Est GFR (Non-Af Amer) 34.4 BUN/Creatinine Ratio 17.5 (10-20) Glucose 298 H (70-99) mg/dl POC Glucose 315 H (70-99) Calcium 7.8 L (8.5-10.1) mg/dl Phosphorus 2.1 L (2.5-4.9) mg/dl Magnesium 1.9 (1.8-2.4) mg/dl Total Bilirubin 0.7 (0.2-1) mg/dl Direct Bilirubin 0.2 (0-0.2) mg/dl AST 7 L (15-37) U/L ALT 18 (12-78) U/L Alkaline Phosphatase 68 (45-117) U/L Total Creatine Kinase 32 (26-192) U/L Troponin I < 0.015 (0-0.045) ng/ml Total Protein 6.7 (6.4-8.2) gm/dl Albumin 2.8 L (3.4-5.0) gm/dl Globulin 3.9 (2.5-4.0) gm/dl Albumin/Globulin Ratio 0.7 L (0.9-2) Lipase 140 (73-393) U/L TSH 0.922 (0.300-4.500) uIu/ml Urine Color Urine Appearance (Clear) Urine pH (4.5-7.5) Ur Specific [place] (1.000-1.030) Urine Protein (Negative) Urine Glucose (UA) (Negative) Urine Ketones (Negative) Urine Blood (Negative) Urine Nitrite (Negative) Urine Bilirubin (Negative) Urine Urobilinogen (Negative) Ur Leukocyte Esterase (Negative) Urine WBC (Auto) (0-5) /hpf Urine RBC (Auto) (0-4) /hpf U Hyaline Cast (Auto) (0-5) /lpf U Epithel Cells (Auto) (0-5) /lpf Urine Bacteria (Auto) (Negative) Stl C. diff Tox B Gene (Neg) 04/22/18 04/22/18 04/22/18 Range/Units 15:40 21:00 21:05 WBC (4.8-10.8) K/uL RBC (4.2-5.4) M/uL Hgb (12.0-16.0) g/dL Hct (37-47) % MCV (80-100) fL MCH (25-34) pg MCHC (32-36) g/dL RDW Std Deviation (36.4-46.3) fL RDW Coeff of Jaspal (11.5-14.5) % Plt Count (130-400) K/uL MPV (7.4-10.4) fL Immature Gran % (Auto) % Neut % (Auto) % Lymph % (Auto) % [place] % (Auto) % Eos % (Auto) % Baso % (Auto) % Immature Gran # (Auto) (0.00-0.02) K/uL Neut # (Auto) (1.4-6.5) K/uL Lymph # (Auto) (1.2-3.4) K/uL [place] # (Auto) (0.11-0.59) K/uL Eos # (Auto) (0-0.5) K/uL Baso # (Auto) (0-0.2) K/uL Sodium (136-145) mmol/L Potassium (3.5-5.1) mmol/L Chloride (98-107) mmol/L Carbon Dioxide (21-32) mmol/L Anion Gap (3-11) BUN (7-18) mg/dl Creatinine (0.6-1.2) mg/dl Est Cr Clr Drug Dosing Est GFR ( Amer) Est GFR (Non-Af Amer) BUN/Creatinine Ratio (10-20) Glucose (70-99) mg/dl POC Glucose 386 H* (70-99) Calcium (8.5-10.1) mg/dl Phosphorus (2.5-4.9) mg/dl Magnesium (1.8-2.4) mg/dl Total Bilirubin (0.2-1) mg/dl Direct Bilirubin (0-0.2) mg/dl AST (15-37) U/L ALT (12-78) U/L Alkaline Phosphatase (45-117) U/L Total Creatine Kinase (26-192) U/L Troponin I (0-0.045) ng/ml Total Protein (6.4-8.2) gm/dl Albumin (3.4-5.0) gm/dl Globulin (2.5-4.0) gm/dl Albumin/Globulin Ratio (0.9-2) Lipase (73-393) U/L TSH (0.300-4.500) uIu/ml Urine Color Dark Yellow Urine Appearance Cloudy H (Clear) Urine pH 5.5 (4.5-7.5) Ur Specific [place] 1.021 (1.000-1.030) Urine Protein Trace H (Negative) Urine Glucose (UA) 3+ H (Negative) Urine Ketones Negative (Negative) Urine Blood Trace H (Negative) Urine Nitrite Negative (Negative) Urine Bilirubin Negative (Negative) Urine Urobilinogen Negative (Negative) Ur Leukocyte Esterase 2+ H (Negative) Urine WBC (Auto) >30 H (0-5) /hpf Urine RBC (Auto) 0-4 (0-4) /hpf U Hyaline Cast (Auto) 1-5 (0-5) /lpf U Epithel Cells (Auto) 10-20 H (0-5) /lpf Urine Bacteria (Auto) 3+ H (Negative) Stl C. diff Tox B Gene Neg C.diff Toxin B (Neg) Imaging Data Radiologist's Impression: XR chest 1V portable CLINICAL HISTORY: Atypical chest pain COMPARISON STUDY: 08/21/2017 FINDINGS: The study is mildly rotated. The heart is at the upper limits of normal in size. There is no failure. There is no focal pulmonary consolidation. There are no pleural effusions. There is no pneumothorax. IMPRESSION: No active disease in the chest. Electronically signed by: Kyler De La Rosa M.D. 04/22/2018 12:45 PM ECG Data Attestation: I personally reviewed and interpreted this ECG as follows: Indication: chest pain and weakness Rate (beats per minute): 64 Rhythm: normal sinus Findings: + other (right axis deviation) and + LBBB; no acute ischemic change Comparison ECG Date: from (09/06/17) Change: no significant change Blood Pressure Blood Pressure Findings: Normal blood pressure MDM Narrative The patient is a pleasant 58-year-old woman with a past medical history of borderline personality disorder with history of combative and aggressive behavior, history of renal transplant with baseline creatinine of 1.3-1.7, and IDDM 2, hypertension, history of CAD status post PCI remotely, question of SLE per prior records who presents emergency department with persistent generalized weakness and 4 days of constant chest pain which has since resolved per hpi. Of note, the patient was seen in the emergency department for similar symptoms 10 days ago with unremarkable workup and discharged. Today she is requesting placement to [facility] acute rehab "to help get her stronger". On arrival patient is fatigued appearing but no acute distress, afebrile stable vital signs. The patient appears clinically dry. She is moving all extremities equally but exhibits generalized weakness throughout. EKG with left bundle branch block similar to prior without acute ischemia, no sgarbossa criteria. Chest x-ray negative for pneumonia. WBC 11.7, nonspecific but increased from prior visit. Hemoglobin 11.5 similar to prior values. Sodium 130 similar to prior values but in the setting of hyperglycemia at 298. Magnesium 1.9 and phosphorus 2.1 which were repleted. Creatinine 1.6 within patient's baseline range. Troponin negative. UA again consistent with UTI. Since prior urine culture did grow ESBL which was treated with oral fosfomycin. We will give repeat dose today. We did attempt to help place the patient at [facility] per her request however given the patient is previously been poorly compliant with rehab program in the setting of her history of behavioral difficulties they are not willing to accept the patient at this time until she is able to demonstrate compliance with recommendations and an outpatient physical therapy program. Thus, case management did offer the patient options for halfway facility placement where she could have additional 24/7 assistance and less aggressive physical therapy to help then transition her to [facility] if she demonstrates compliant behavior. However, the patient was adamant that she would only accept going to [facility] and did not want to be "locked up in a alf to like her mother". Both myself, the piano case maker and the patient's strep refill social worker palliative care did try to explain that this would be a pathway to help her obtain which she wants which is inpatient rehab at [facility]. However, the patient would perseverate on not wanting to be "locked up." Thus, plan was to discharge the patient however she continued to report that she would simply "go home and " and then she actively expressed to the RN that she had thoughts of killing herself. I also discussed these thoughts with the patient and she said that she would kill herself if she was sent home by laying outside in the cold to freeze to . Thus psychiatric piano case maker was consulted and completed his evaluation. While the patient does have a history of making suicidal threats for secondary gain, she does also have a history of acting out on some of her threats such as when she had been witnessed to be crawling outside on her hands and knees with her walker behind her. Thus, it is reasonable to make inpatient referral for psychiatric management. [facility] has private bed available. Referral pending. Patient signed out to Dr. Saab at change of shift. Impression & Plan Generalized weakness, Atypical chest pain, Acute UTI (urinary tract infection) , Suicidal ideation Discharge Plan Visit Data Chief Complaint: Chest Pain Stated Complaint: Increased Weakness ED Provider: Nico Saab Discharge Problem: Generalized weakness, Atypical chest pain, Acute UTI (urinary tract infection) , Suicidal ideation Patient Disposition: Home - Self-Care Condition: Good Discharge Instructions Krames/Other Patient Handouts: ED Chest Pain Atypical Unkn Cause, ED UTI Cystitis Female, ED Weakness UKO Activity Restrictions/Additional Instructions: Please follow up with your primary care physician in the next 1-3 days for re- evaluation. Your symptoms may be related to mild dehydration in the setting of a urinary tract infection. Otherwise, your exam, EKG, chest xray, and lab results did not show signs of an emergent condition at this time. We were unable to place you at [facility] for rehab as you preferred. However we did offer you a reasonable alternative of placement in a halfway facility where you could receive subacute rehab to demonstrate your compliance with treatment to then be accepted at [facility]. You preferred to decline this option. You were given a single oral dose of an antibiotic which should treat your urinary infection. Continue your current medications as prescribed. Drink plenty of fluids to ensure hydration. Return to the emergency department for worsening symptoms as described in the accompanying instructions. Interventions: ED Discharge Assessment Last Done: 04/22/18 16:20 Forms Stand Alone Forms: Call Back Authorization, [facility], Important Visit Information Prescriptions Prescriptions: No Action mycophenolate mofetil 250 mg Capsule 250 mg PO BID RF: 0 gabapentin 400 mg Capsule 400 mg PO TID RF: 0 carvedilol [Coreg] 12.5 mg tablet 12.5 mg PO BID RF: 0 baclofen 10 mg tablet 10 mg PO TID RF: 0 insulin aspart U-100 [Novolog Flexpen U-100 Insulin] 100 unit/mL insulin pen subcut TIDM RF: 0 cyclosporine modified 50 mg capsule 100 mg PO BID RF: 0 insulin glargine [Basaglar KwikPen U-100 Insulin] 100 unit/mL (3 mL) insulin pen subcut DAILY RF: 0 trazodone 50 mg Tablet 50 mg PO HS RF: 0 lorazepam [Ativan] 1 mg Tablet 1 mg PO BID PRN (Reason: Anxiety) RF: 0 bupropion HCl [Wellbutrin SR] 150 mg Tablet Sustained-Release 12 Hr 150 mg PO QAM RF: 0 loperamide [Imodium A-D] 2 mg Capsule 2 mg PO DIRECTED PRN (Reason: Diarrhea) RF: 0 buspirone 5 mg Tablet 5 mg PO TID PRN (Reason: prn) RF: 0 sodium bicarbonate 650 mg Tablet 650 mg PO TID RF: 0 Referrals Referrals: PCP,NO [Primary Care Provider] - The rui's documentation has been prepared under my direction and personally reviewed by me in its entirety. I confirm that the note above accurately reflects all work, treatment, procedures, and medical decision making performed by me.
[2018-04-22 12:36] LABS: Alanine Aminotransferase 18 U/L (12-78); Albumin Level 2.8 gm/dl (3.4-5.0); Aspartate Aminotransferase 7 U/L (15-37); BUN Creatinine Ratio 17.5 (10-20); Bilirubin Direct 0.2 mg/dl (0-0.2); Blood Urea Nitrogen 28 mg/dl (7-18); Calcium 7.8 mg/dl (8.5-10.1); Carbon Dioxide 22 mmol/L (21-32); Chloride 101 mmol/L (98-107); Est GFR (African American) 39.9; Est GFR (Non-African American) 34.4; Glucose 298 mg/dl (70-99); Magnesium 1.9 mg/dl (1.8-2.4); Potassium 4.5 mmol/L (3.5-5.1); Sodium 130 mmol/L (136-145)
[2018-04-22 12:45] LABS: Albumin Globulin Ratio 0.7 (0.9-2); Alkaline Phosphatase 68 U/L (45-117); Bilirubin,Total 0.7 mg/dl (0.2-1); Creatine Kinase 32 U/L (26-192); Globulin 3.9 gm/dl (2.5-4.0); Phosphorus 2.1 mg/dl (2.5-4.9); Total Protein 6.7 gm/dl (6.4-8.2); Troponin I < 0.015 ng/ml (0-0.045)
--- NOTE | 2018-04-22 12:47 | XRay Report ---
XR chest 1V portable CLINICAL HISTORY: Atypical chest pain COMPARISON STUDY: 08/21/2017 FINDINGS: The study is mildly rotated. The heart is at the upper limits of normal in size. There is n o failure. There is no focal pulmonary consolidation. There are no pleural effusions. There is no pne umothorax.[ IMPRESSION: No active disease in the chest. Electronically signed by: Kyler De La Rosa M.D. 04/22/2018 12:45 PM
[2018-04-22] MEDS ORDERED: POT PHOSPHATE MONOBASIC W/ SOD TAB PO STA (13:16)
[2018-04-22] MEDS ORDERED: MAGNESIUM OXIDE 400 MG TAB PO STA (13:16)
[2018-04-22 15:56] LABS: Appearance Urine Cloudy (Clear); Bacteria Urine Automated 3+ (Negative); Bilirubin Urine Negative (Negative); Color Urine Dark Yellow; Glucose Urine UA 3+ (Negative); Ketones Urine Negative (Negative); Leukocyte Esterase Urine 2+ (Negative); Nitrite Urine Negative (Negative); Protein Urine Trace (Negative); Specific Gravity Urine 1.021 (1.000-1.030); Urobilinogen Urine Negative (Negative); WBC Urine Automated >30 /hpf (0-5); pH Urine 5.5 (4.5-7.5)
[2018-04-22] MEDS ORDERED: FOSFOMYCIN TROMETHAMINE 3 GM PACKET PO STA (16:36)
[2018-04-22] MEDS ORDERED: NovoLIN-R INSULIN PER UNIT CHARGE IV STA (21:07)
--- NOTE | 2018-04-23 00:56 | Emergency Department Note ---
ED Visit Note The patient is a 58-year-old female who presented to the emergency department with multiple complaints. The patient was signed out to me at change of shift from Dr. perez. Please see his note for initial history and physical. The patient was medically cleared prior to my acceptance of the patient. She did have signs of urinary tract infection and was treated with IV antibiotics. She was also treated for hyperglycemia. She received IV insulin. Her blood sugar improved significantly. She was seen by the mental health case briefer. She continued to have very significant behavioral health complaints. I am familiar with the patient and she is very difficult at times. She was able to be accepted on [facility] for inpatient management. I reviewed the care plan with the mental health delegate from [facility] This care plan was also discussed with the psychiatrist. The patient was able to be transferred to [facility] for further inpatient behavioral health treatment. .
[2018-04-23] MEDS ORDERED: SODIUM CHLORIDE 0.65% NA SOLN 45 ML (OCEAN) PRN (01:38)
[2018-04-23] MEDS ORDERED: MAGNESIUM HYDROXIDE SUSP 30 ML UDC PO PRN (01:38)
[2018-04-23] MEDS ORDERED: BISMUTH SUBSALICYLATE PER ML OMNICELL CHARGE PO PRN (01:38)
[2018-04-23] MEDS: TRAZODONE HCL 50 MG TAB PO SCH ×2 (02:22→21:31)
[2018-04-23] MEDS ORDERED: PHARMACY GLYCEMIC MGMT CONSULT PRN (03:55)
[2018-04-23] MEDS ORDERED: INSULIN GLARGINE SOLOSTAR 100 UNITS/ML 3 ML PEN SC ONE ×2 (04:00→18:00)
[2018-04-23] MEDS ORDERED: GLUCOSE 10 TABS/TUBE PO PRN (04:01)
[2018-04-23] MEDS ORDERED: DEXTROSE 50% 50 ML SYRINGE IV PRN (04:01)
[2018-04-23] MEDS ORDERED: GLUCAGON FOR INJ 1 MG VIAL IM PRN (04:01)
[2018-04-23] MEDS ORDERED: GLUCOSE 40% GEL 15 GM TUBE PO PRN (04:01)
[2018-04-23] MEDS ORDERED: PNEUMOCOCCAL ADMINISTRATION CHARGE ONE (04:30)
[2018-04-23] MEDS ORDERED: INFLUENZA ADMINISTRATION CHARGE ONE (04:30)
[2018-04-23] MEDS ORDERED: PNEUMOCOCCAL POLYSACCHARIDES 25 MCG/0.5 ML VIAL/SYR IM ONE (04:30)
[2018-04-23] MEDS ORDERED: INFLUENZA VIRUS QUAD VACCINE 0.5 ML SYR IM ONE (04:30)
[2018-04-23] MEDS: INSULIN ASPART 100 UNITS/ML 3 ML PEN SC SCH ×5 (05:25→21:34)
[2018-04-23] MEDS: MYCOPHENOLATE MOFETIL 250 MG CAP PO SCH ×2 (09:44→21:28)
[2018-04-23] MEDS: GABAPENTIN 400 MG CAP PO SCH ×3 (09:45→21:30)
[2018-04-23] MEDS: BACLOFEN 10 MG TAB PO SCH ×3 (09:45→21:29)
[2018-04-23] MEDS: CARVEDILOL 12.5 MG TAB PO SCH ×2 (09:45→21:29)
--- NOTE | 2018-04-23 09:45 | Pharmacy Report ---
Pharmacy Glycemic Short Note 2 - Date of Service April 23, 2018 - Glycemic Short BSG Results (Last 24 hours): 04/22/18 04/22/18 04/22/18 11:05 12:06 21:05 Glucose 298 H POC Glucose 315 H 386 H* 04/22/18 04/23/18 04/23/18 23:23 05:18 08:49 Glucose POC Glucose 282 H 251 H 240 H OUTPATIENT ANTIDIABETIC REGIMEN: * Basaglar 20 units SQ daily + Novolog 5 units TID with meals (doses from Dr. Vela - unable to confirm doses with patient) * A1c 6.3% (01/06/18) ASSESSMENT: * Kecia is a 58 yr old female admitted with chest pain, weakness, hyperglycemia , and possible UTI * She was given a 6 unit IV bolus of regular insulin last evening due to BSG persistently > 300 mg/dL * Pharmacy was consulted on 04/23 AM. At this time, a dose of Lantus 15 units SQ was ordered plus Novolog CF/CR based on weight/stress 2 * Fasting BSG improving but remains above goal at 240 mg/dL. Lantus dose was given @0530, therefore effect not seen at this time. I will add a Lantus scale at bedtime. Reassess Lantus dosing on 04/24 AM. * Lunch BSG resulted at 321 mg/dL. Of note, BSG was drawn only ~ 2 hours after AM Novolog dose was administered, therefore Novolog parameters will conservatively tightened. PLAN FOR INPATIENT GLYCEMIC CONTROL: * Basal insulin * Lantus 15 units SQ this AM, then per scale this evening: * 0 units for BSG < 140 mg/dL * 7 units for BSG 140-180 mg/dL * 13 units for BSG > 180 mg/dL * Bolus insulin - tighten * NovoLog per scale ACHS or Q6hrs while NPO * Goal Range: Low 110 mg/dL - High 140 mg/dL * Correction Factor: 25 mg/dL/unit * Nutritional / Prandial insulin per carb ratio of 1 unit per 8 grams CHO consumed
[2018-04-23] MEDS: BuPROPion SR 150 MG TABCR PO SCH (09:46)
[2018-04-23] MEDS: SODIUM BICARBONATE 650 MG TAB PO SCH ×3 (09:46→21:31)
[2018-04-23] MEDS: cycloSPORINE 100 MG CAP PO SCH ×2 (09:46→21:30)
--- NOTE | 2018-04-23 09:53 | History & Physical ---
Date of Service April 23, 2018 Impression / Recommendations Impression 58-year-old woman with multiple medical conditions and borderline personality disorder, admitted to our unit voluntarily after making suicidal statements while in the emergency department for evaluation of chest pain and weakness. Today she is softening her position and says she does not think she would ever do that if she does not like the cold. She is presenting as severely unkempt, incontinent of bowel and reporting weakness preventing her from getting out of bed. Secondary to her multiple medical conditions including diabetes, hypertension, coronary artery disease, lupus, UTI status post renal transplant, I will consult medicine to help us manage these conditions. She reports recent poor p.o. intake and today has not eaten breakfast but is sipping on liquids. She has a long history of angry and agitated behaviors towards others which have resulted recently in charges against her for disorderly conduct after spitting on people. She has hearings approaching in April. On admission she did sign a behavioral contract and today during my interview she was cooperative. It is known that she has long alienated any family or friends with her angry and contemptuous behaviors and has been lonely for a long time. She is asking to be able to go to a care facility as she is too weak to take care of herself. Our first step will be to clarify her medications with her pharmacy, obtain medicines opinion about her medical conditions and if possible , proceed with a PT OT consult to see if she is capable of being transferred to a nursing care facility. At this point she is saying she is not capable of participating in any programming as she is too weak to get out of bed. There is some likelihood that she used her conditional suicidal statements to avoid going home where she feels inadequately prepared to care for herself. We will continue to evaluate this over the next 24 hours, however if there is no primary mental illness to be treated, we will proceed with trying to refer her for the medical care that she is requesting. PDMP checked and recent rx for ativan provided by [facility], [address] Rosa Herndon has personally been involved in the review of this case and development of these recommendations. (1) Suicidal ideation: 04/23 - Made conditional suicidal statements in the ED. Will continue to evaluate - Clarify current medications and then consider adjustments - Q 15 min checks for safety - Encourage participation in group and individual counseling. - Coordinate care with [facility], and obtain OP records - Safety planning, including evaluating in home supports (2) Hypertension: 04/23 - Confirm home meds and continue antihypertensives - Monitor BP Hypertension type: essential hypertension Qualified Code(s): I10 - Essential (primary) hypertension Present on Admission?: Yes (3) Generalized weakness: 04/23 - patient with UTI, treated with chrissie dose of fosfomycin - Maintain MNPR for MDRO with precautions - Assist the patient with ADL's as she is reporting feeling too weak to do so herself - Encourage patient to be OOB as much as possible Present on Admission?: Yes (4) Diabetes: 04/23 - [facility] hospital[facility] to assist in managing multiple medical problems Diabetes mellitus type: type 2 Diabetes mellitus behavioral specialist insulin use: with fci use Diabetes mellitus complication status: with unspecified complications Diabetes mellitus complication detail: Diabetic retinopathy severity: Proliferative retinopathy type: Diabetes mellitus macular edema: Laterality: Chronic kidney disease stage: Qualified Code(s) : E11.8 - Type 2 diabetes mellitus with unspecified complications; Z79.4 - care home (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 Present on Admission?: Yes Inventory Assets Strengths: Lives in her own home Needs: Honesty in treatment Risk Factors Assessment Male: No : Yes Do You Have Access To A Gun?: No Health Problems: Yes Mental Health Diagnoses: Yes Substance Use Disorders: No Previous Attempt: No Previous Psychiatric Hospitalization: Yes Hopelessness: Yes Smoker: No Protective Factors Assessment : No Responsible for Young Children: No Employed: No Stable Relationships: No Supportive Family: No Good Rapport with Provider: Yes Psychiatric History Identifying Data DAY SANDOVAL is a 58-year-old F who presented to the ED with complaints of chest pain and weakness. She was medically cleared, but then reported that if sent home she would lay down in the cold to . She was then admitted to our unit on a voluntary basis. Information is obtained from the patient and considered to be reliable. Chief Complaint "I can't even turn over.". History of Present Illness The patient is a 58 yo woman, well known to our mental health unit from previous hospitalizations for borderline personality disorder, who was brought to the ED by ambulance with complaints of chest pain and weakness. She was found to have a UTI, given a chrissie dose of fosfomycin and cleared to go home, at which point she said that if she was sent home she would kill herself by lying down in the cold. She demanded to go to [facility], who declined to admit her as she needed to demonstrate that she could cooperative with their rehab program. She was offered the option to be referred to a intermediate until she improved enough to attend rehab, which she refused. She was then referred for mental health evaluation, and was willing for a voluntary admission. When I see her today she is lying in bed in a darkened room with an uneaten breakfast tray at the bedside. She is cooperative, but keeps her eyes closed and mumbles. She reports that "I just kept getting sicker and sicker" saying that she was throwing up her meds, and being unable to eat or drink. She says she has been having diarrhea for weeks. She indicates a recent history of falls , saying that when she gets up her knees "just give out". The depression did not present in [place] until yesterday when "I felt like I was never going to get better". She admits to saying that she would lay down in the cold weather to , but today says that she doesn't think she could ever do that, "I don't like the cold.". Her sleep is reported to be terrible with both difficulty falling asleep as well as staying asleep which has been going on for "a while". Her anxiety is high, but denies panic attacks. She denies aud/vis hallucinations. Past Psychiatric History Current Psychiatric Diagnosis: Borderline Personality Disorder Outpatient Services: [facility] where she sees [facility] Previous Psych Admissions: Multiple including [facility] Do You Have Access To A Gun?: No History of Previous Suicide Attempt: No Describe Attempts in the Past: Denies Past Medication Trials: Cannot remember Allergies Allergy/AdvReac Type Severity Reaction Status Date / Time Penicillins Allergy Mild ITCHY, Verified 04/22/18 14:08 ANXIETY glipizide Allergy Unknown Unknown Verified 04/22/18 14:08 loperamide Allergy Unknown Unknown Verified 04/22/18 14:08 metformin Allergy Unknown Unknown Verified 04/22/18 14:08 vancomycin Allergy Unknown Unknown Verified 04/22/18 14:08 ziprasidone Allergy Unknown itching Verified 04/22/18 14:08 Home Medications Home Medications Medication Instructions Recorded Confirmed Type gabapentin 400 mg PO TID 12/30/17 04/22/18 History mycophenolate mofetil 250 mg PO BID 12/30/17 04/22/18 History baclofen 10 mg PO TID 01/14/18 04/22/18 History carvedilol [Coreg] 12.5 mg PO BID 01/14/18 04/22/18 History cyclosporine modified 100 mg PO BID 01/14/18 04/22/18 History insulin aspart U-100 [Novolog 0 unit SUBCUT TIDM 01/14/18 04/10/18 History Flexpen U-100 Insulin] insulin glargine [Basaglar KwikPen 3 unit SUBCUT QAM 01/14/18 04/10/18 History U-100 Insulin] bupropion HCl [Wellbutrin SR] 150 mg PO QAM 04/10/18 04/22/18 History loperamide [Imodium A-D] 2 mg PO DIRECTED PRN 04/10/18 04/22/18 History lorazepam [Ativan] 1 mg PO BID PRN 04/10/18 04/22/18 History trazodone 50 mg PO HS 04/10/18 04/22/18 History buspirone 5 mg PO TID PRN 04/22/18 04/22/18 History sodium bicarbonate 650 mg PO TID 04/22/18 04/22/18 History Family History Family History of: None Alcohol History Hx of Alcohol Use Over the Past 12 Months: No AUDIT Total Score: 0 Smoking Use Have You Smoked or Used Tobacco Products in the Last 30 Days: No Smoking Status: Never smoker Substance History Hx of Prescription Med Misuse Over the Past 12 Months: No Hx of Over the Counter Med Misuse Over the Past 12 Months: No Hx of Inhalent Misuse Over the Past 12 Months: No Hx of Organic Substance Use Over the Past 12 Months: No Hx of Illegal Substances/Street Drug Use Over Past 12 Months: No Problems as a Result of Past Substance Use: None Identified Personal History Living Arrangements: Home Highest Grade Completed: College Highest Grade Completed Comment: Reports having 3 degrees in anthropology, HDFS and Women's Studies Employment Status: Disabled Marital Status: Single Number Of Children: None Beliefs That Will Affect Care: None Current Legal Problems: Yes Legal Problems Comment: 2 charges of disorderly conduct in [facility] with hearing on 04/29/18 and 05/13/18 Hx Legal Problems: Yes Hx Traumatic Life Events: Yes Psychological Trauma History Comment: Refuses to elaborate Patient History Medical History Hypertension GERD (gastroesophageal reflux disease) Diabetes CAD (coronary artery disease) Cerebrovascular disease (Chronic) "s/p stroke" Sleep apnea (Chronic) Kidney transplant status, cadaveric (Chronic) Systemic lupus erythematosus (Chronic) Mood disorder (Inactive) Acute chest pain Acute kidney injury Chest pain Dehydration E. 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 Says she can't rate the pain ) Physical Exam Mental Examination Exam performed by Dr. Thomas in the ED has been reviewed and accepted as medical clearance for our unit. Psychiatric Orientation: alert and cooperative Apperance: + disheveled Eye Contact: + poor eye contact (keeps eyes closed) Motor Behavior: no abnormal motor movements (says she is too weak to even roll over) Speech is soft and mumbling Affect: + depressed affect and + flat affect Mood: + depressed mood Thought Process: goal directed thought process Thought Content: reality based without delusions Suicidal Thoughts: denies suicidal thoughts (Reported in the ED that she would lay down in the cold to ) Homicidal Thoughts: denies homicidal thoughts Hallucinations: no auditory hallucinations and no visual hallucinations Cognition: recent memory grossly intact and language grossly intact Estimated Intelligence: average estimated intelligence Insight: + impaired insight Judgement: + impaired judgement Vital Signs (Past 24 Hours) Last Vital Signs Temp 37.8 C H 04/23/18 06:26 Pulse 73 04/23/18 06:26 Resp 20 04/23/18 06:26 BP 133/74 04/23/18 06:26 Pulse Ox 96 04/23/18 02:00 Results & Data Laboratory Results Laboratory Results - last 24 hr 04/22/18 04/22/18 04/22/18 11:05 11:05 12:06 WBC 11.78 H RBC 3.86 L Hgb 11.5 L Hct 34.5 L MCV 89.4 MCH 29.8 MCHC 33.3 RDW Std Deviation 47.4 H RDW Coeff of Jaspal 14.6 H Plt Count 203 MPV 10.5 H Immature Gran % (Auto) 0.2 Neut % (Auto) 72.0 Lymph % (Auto) 14.1 [place] % (Auto) 12.9 Eos % (Auto) 0.5 Baso % (Auto) 0.3 Immature Gran # (Auto) 0.02 Neut # (Auto) 8.49 H Lymph # (Auto) 1.66 [place] # (Auto) 1.52 H Eos # (Auto) 0.06 Baso # (Auto) 0.03 Sodium 130 L Potassium 4.5 Chloride 101 Carbon Dioxide 22 Anion Gap 7.0 BUN 28 H Creatinine 1.62 H Est Cr Clr Drug Dosing Not Reportable Est GFR ( Amer) 39.9 Est GFR (Non-Af Amer) 34.4 BUN/Creatinine Ratio 17.5 Glucose 298 H POC Glucose 315 H Calcium 7.8 L Phosphorus 2.1 L Magnesium 1.9 Total Bilirubin 0.7 Direct Bilirubin 0.2 AST 7 L ALT 18 Alkaline Phosphatase 68 Total Creatine Kinase 32 Troponin I < 0.015 Total Protein 6.7 Albumin 2.8 L Globulin 3.9 Albumin/Globulin Ratio 0.7 L Lipase 140 TSH 0.922 Urine Color Urine Appearance Urine pH Ur Specific [place] Urine Protein Urine Glucose (UA) Urine Ketones Urine Blood Urine Nitrite Urine Bilirubin Urine Urobilinogen Ur Leukocyte Esterase Urine WBC (Auto) Urine RBC (Auto) U Hyaline Cast (Auto) U Epithel Cells (Auto) Urine Bacteria (Auto) Stl C. diff Tox B Gene 04/22/18 04/22/18 04/22/18 15:40 21:00 21:05 WBC RBC Hgb Hct MCV MCH MCHC RDW Std Deviation RDW Coeff of Jaspal Plt Count MPV Immature Gran % (Auto) Neut % (Auto) Lymph % (Auto) [place] % (Auto) Eos % (Auto) Baso % (Auto) Immature Gran # (Auto) Neut # (Auto) Lymph # (Auto) [place] # (Auto) Eos # (Auto) Baso # (Auto) Sodium Potassium Chloride Carbon Dioxide Anion Gap BUN Creatinine Est Cr Clr Drug Dosing Est GFR ( Amer) Est GFR (Non-Af Amer) BUN/Creatinine Ratio Glucose POC Glucose 386 H* Calcium Phosphorus Magnesium Total Bilirubin Direct Bilirubin AST ALT Alkaline Phosphatase Total Creatine Kinase Troponin I Total Protein Albumin Globulin Albumin/Globulin Ratio Lipase TSH Urine Color Dark Yellow Urine Appearance Cloudy H Urine pH 5.5 Ur Specific [place] 1.021 Urine Protein Trace H Urine Glucose (UA) 3+ H Urine Ketones Negative Urine Blood Trace H Urine Nitrite Negative Urine Bilirubin Negative Urine Urobilinogen Negative Ur Leukocyte Esterase 2+ H Urine WBC (Auto) >30 H Urine RBC (Auto) 0-4 U Hyaline Cast (Auto) 1-5 U Epithel Cells (Auto) 10-20 H Urine Bacteria (Auto) 3+ H Stl C. diff Tox B Gene Neg C.diff Toxin B 04/22/18 04/23/18 04/23/18 23:23 05:18 08:49 WBC RBC Hgb Hct MCV MCH MCHC RDW Std Deviation RDW Coeff of Jaspal Plt Count MPV Immature Gran % (Auto) Neut % (Auto) Lymph % (Auto) [place] % (Auto) Eos % (Auto) Baso % (Auto) Immature Gran # (Auto) Neut # (Auto) Lymph # (Auto) [place] # (Auto) Eos # (Auto) Baso # (Auto) Sodium Potassium Chloride Carbon Dioxide Anion Gap BUN Creatinine Est Cr Clr Drug Dosing Est GFR ( Amer) Est GFR (Non-Af Amer) BUN/Creatinine Ratio Glucose POC Glucose 282 H 251 H 240 H Calcium Phosphorus Magnesium Total Bilirubin Direct Bilirubin AST ALT Alkaline Phosphatase Total Creatine Kinase Troponin I Total Protein Albumin Globulin Albumin/Globulin Ratio Lipase TSH Urine Color Urine Appearance Urine pH Ur Specific [place] Urine Protein Urine Glucose (UA) Urine Ketones Urine Blood Urine Nitrite Urine Bilirubin Urine Urobilinogen Ur Leukocyte Esterase Urine WBC (Auto) Urine RBC (Auto) U Hyaline Cast (Auto) U Epithel Cells (Auto) Urine Bacteria (Auto) Stl C. diff Tox B Gene Current Inpatient Medications Current Inpatient Medications: Current Inpatient Medications Baclofen (Lioresal) 10 mg PO TID [facility] Stop: 05/23/18 08:59 Bismuth Subsalicylate (Kaopectate) 15 ml PO PRN PRN PRN Reason: Loose Stool Stop: 05/23/18 01:37 Bupropion HCl (Wellbutrin-Sr) 150 mg PO QAM [facility] Stop: 05/23/18 08:59 Buspirone HCl (Buspar) 5 mg PO TID PRN PRN Reason: Anxiety Stop: 05/23/18 08:59 Carvedilol (Coreg) 12.5 mg PO BID [facility] Stop: 05/23/18 08:59 Cyclosporine (Sandimmune) 100 mg PO BID [facility] Stop: 05/23/18 08:59 Dextrose (Dextrose 50%) 25 - 50 ml IV UD PRN; Protocol PRN Reason: Hypoglycemia Protocol Stop: 05/23/18 04:00 Gabapentin (Neurontin) 400 mg PO TID [facility] Stop: 05/23/18 08:59 Glucagon (Glucagen) 1 mg IM UD PRN; Protocol PRN Reason: Hypoglycemia Protocol Stop: 05/23/18 04:00 Glucose (Glucose 40%) 15 - 30 gm PO UD PRN; Protocol PRN Reason: Hypoglycemia Protocol Stop: 05/23/18 04:00 Glucose (Dex4 Glucose) 4 - 8 tabs PO UD PRN; Protocol PRN Reason: Hypoglycemia Protocol Stop: 05/23/18 04:00 Hydroxyzine HCl (Vistaril) 50 mg PO HSZ PRN PRN Reason: Insomnia Stop: 05/23/18 01:37 Hydroxyzine HCl (Vistaril) 25 mg PO Q4H PRN PRN Reason: Anxiety Stop: 05/23/18 01:37 Insulin Aspart (Novolog Flexpen) 0 units SC ACHS [facility] Stop: 05/23/18 03:59 Last Admin: 04/23/18 05:25 Dose: 4 units Lorazepam (Ativan) 1 mg PO BID PRN PRN Reason: Anxiety Stop: 05/23/18 01:43 Magnesium Hydroxide (Milk Of Magnesia) 30 ml PO DAILY PRN PRN Reason: Heartburn Stop: 05/23/18 01:37 Miscellaneous (Carbohydrates For Hypoglycemia) 15 - 30 gm PO UD PRN PRN Reason: Hypoglycemia Treatment Stop: 05/23/18 04:00 Miscellaneous Information (Consult Glycemic Management Pharmacy) 1 ea N/A UD PRN PRN Reason: Consult Stop: 05/23/18 03:54 Mycophenolate Mofetil (Cellcept) 250 mg PO BID [facility] Stop: 05/23/18 08:59 Sodium Bicarbonate (Sodium Bicarbonate) 650 mg PO TID [facility] Stop: 05/23/18 08:59 Sodium Chloride ([place] Nasal) 1 - 2 sprays NA PRN PRN PRN Reason: Nasal Dryness/Congestion Stop: 05/23/18 01:37 Trazodone HCl (Desyrel) 50 mg PO HS [facility] Stop: 05/23/18 21:59 Last Admin: 04/23/18 02:22 Dose: 50 mg CPT Code CPT Code Initial Hospital Care: [id number]
--- NOTE | 2018-04-23 16:36 | Consultation ---
Date of Consultation April 23, 2018 Assessment & Plan (1) Acute UTI (urinary tract infection): Dosed on 04/22 with fosfomycin 3g x1 PCN allergy Cx on 04/10 with ESBL, awaiting current cx Elevated WBC in the ED, repeat in AM (2) Atypical chest pain: Trop neg x1, EKG WNL in the ED Concern from psych that this was malingering for admission Has not recurred (3) Generalized weakness: Could be related to UTI vs poor PO intake vs deconditioning vs multiple medications PT/OT pending Pt requesting other care arrangements (4) Diarrhea: Apparently discussed in the ED, denies currently Cdiff neg (5) Hypertension: continue home meds (6) GERD (gastroesophageal reflux disease): continue home meds (7) Diabetes: continue home meds SSI (8) CAD (coronary artery disease): continue home meds (9) Combative behavior: As per psych (10) Kidney transplant status, cadaveric: continue home meds Baseline cr is unclear to me as pt does not have many labs in our system 1.6 on 04/22, which was improved from 04/10 when it was 1.9 and 12/2017 at 2.49 (11) Systemic lupus erythematosus: continue home meds History of Present Illness Attending Physician: Rosa Herndon MD History of Present Illness 58 y/o F who was admitted to [facility] yesterday for SI. Pt had c/o chest pain on arrival to the ED. She was found to have a UTI. She had a recent ESBL UTI on . She was called in for a dose of fosfomycin and the ED notes suggest that her case repairer was to pick it up at the pharmacy for her and deliver it to her home. I am uncertain if this occurred. Pt noted again on 04/22 to have UTI. She was redosed in the ED with fosfomycin and was prepared for d/c, however pt stated that if she was d/c'd she would attempt suicide by staying outside in the freezing temps. Pt apparently stated that she cannot care for herself at home and would like placement. She was admitted for further [facility] care. Today, pt states she is still weak, but was able to eat some and does feel a bit stronger than yesterday. She denies current chest pain. She states she has them "on and off" and it was not a new pain, but she has not had any chest pain since prior to the ED. Pt denies fever, SOB, abd pain, c/d, LE pain or swelling. Pt states that she is nauseated with the smells of certain foods, but no emesis. She did tolerate the PO she took today. Denies urinary sx. Allergies Allergy/AdvReac Type Severity Reaction Status Date / Time Penicillins Allergy Mild ITCHY, Verified 04/22/18 14:08 ANXIETY glipizide Allergy Unknown Unknown Verified 04/22/18 14:08 loperamide Allergy Unknown Unknown Verified 04/22/18 14:08 metformin Allergy Unknown Unknown Verified 04/22/18 14:08 vancomycin Allergy Unknown Unknown Verified 04/22/18 14:08 ziprasidone Allergy Unknown itching Verified 04/22/18 14:08 Home Medications Home Medications Medication Instructions Recorded Confirmed Type gabapentin 400 mg PO TID 12/30/17 04/22/18 History mycophenolate mofetil 250 mg PO BID 12/30/17 04/22/18 History baclofen 10 mg PO TID 01/14/18 04/22/18 History carvedilol [Coreg] 12.5 mg PO BID 01/14/18 04/22/18 History cyclosporine modified 100 mg PO BID 01/14/18 04/22/18 History insulin aspart U-100 [Novolog 0 unit SUBCUT TIDM 01/14/18 04/10/18 History Flexpen U-100 Insulin] insulin glargine [Basaglar KwikPen 3 unit SUBCUT QAM 01/14/18 04/10/18 History U-100 Insulin] bupropion HCl [Wellbutrin SR] 150 mg PO QAM 04/10/18 04/22/18 History loperamide [Imodium A-D] 2 mg PO DIRECTED PRN 04/10/18 04/22/18 History lorazepam [Ativan] 1 mg PO BID PRN 04/10/18 04/22/18 History trazodone 50 mg PO HS 04/10/18 04/22/18 History buspirone 5 mg PO TID PRN 04/22/18 04/22/18 History sodium bicarbonate 650 mg PO TID 04/22/18 04/22/18 History Patient History Medical History Hypertension GERD (gastroesophageal reflux disease) Diabetes CAD (coronary artery disease) Cerebrovascular disease (Chronic) "s/p stroke" Sleep apnea (Chronic) Kidney transplant status, cadaveric (Chronic) Systemic lupus erythematosus (Chronic) Mood disorder (Inactive) Acute chest pain Acute kidney injury Chest pain Dehydration E. coli septicemia Elevated troponin Generalized weakness Hyperglycemia MDRO (multiple drug resistant organisms) resistance [place] Sepsis UTI (urinary tract infection) Urinary tract infection due to extended-spectrum beta lactamase (ESBL) producing Escherichia coli Surgical History Status post coronary artery stent placement "RCA 2006" Status post parathyroidectomy Family History Other Heart disease Social History Current Living Situation: Other current occupational status: other current occupation: [employer] Feels Safe at Home: Yes Smoking Status: Never smoker Beliefs That Will Affect Care: None Preferred Language: Greek Communication Ability: Effective Communication Ability Comment: Stutters often Multi Sensor Operator Required: No Review of Systems Pertinent positives and negatives reviewed in HPI--all others negative Physical Exam 2 Vital Signs (Past 24 Hours): Last Vital Signs Temp 36.9 C 04/23/18 12:18 Pulse 67 04/23/18 12:18 Resp 20 04/23/18 06:26 BP 133/74 04/23/18 06:26 Pulse Ox 94 04/23/18 12:18 Constitutional: well nourished appears older than stated age Eyes: normal visual millan by confrontation and + anicteric sclerae Neck: normal visual inspection and trachea midline Respiratory: normal respiratory effort, lungs clear to auscultation Cardiovascular: Rate/Rhythm: regular rate and regular rhythm Gastrointestinal (Abdomen): Inspection/Auscultation: abdomen not distended Percussion/Palpation: + abdomen tender (pelvic TTP) and abdomen soft Musculoskeletal: Head/Neck/Chest: normocephalic and head atraumatic negative for edema, peripheral pulses intact Skin: no rashes, warm and dry Neurologic: awake; not confused Speech / Cognition: normal speech slow to answer but answers are c/w questions being asked. Speaks is full sentences. Psychiatric: A+Ox3, euthymic affect Results & Data Diagnostic Findings CXR neg _ (1) Systemic lupus erythematosus Systemic lupus erythematosus organ involvement: glomerular disease Systemic lupus erythematosus type: unspecified Qualified Code(s): M32.14 - Glomerular disease in systemic lupus erythematosus (2) Diabetes Chronic kidney disease stage: Diabetes mellitus complication detail: Diabetes mellitus complication status: with unspecified complications Diabetes mellitus skilled nursing insulin use: with skilled nursing use Diabetes mellitus macular edema: Diabetes mellitus type: type 2 Diabetic retinopathy severity: Laterality: Proliferative retinopathy type: Qualified Code(s): E11.8 - Type 2 diabetes mellitus with unspecified complications; 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 transplanted heart: [place] heart Qualified Code(s): I25.10 - Atherosclerotic heart disease of [place] coronary artery without angina pectoris (4) GERD (gastroesophageal reflux disease) Esophagitis presence: esophagitis presence not specified Qualified Code(s): K21.9 - Gastro-esophageal reflux disease without esophagitis (5) Hypertension Hypertension type: essential hypertension Qualified Code(s): I10 - Essential (primary) hypertension
[2018-04-23] MEDS: LORazepam 1 MG TAB PO PRN (19:54)
[2018-04-24] MEDS: INSULIN ASPART 100 UNITS/ML 3 ML PEN SC SCH ×6 (00:34→21:09)
[2018-04-24 07:52] LABS: Basophils # (auto) 0.02 K/uL (0-0.2); Basophils % (auto) 0.3 %; Eosinophils # (auto) 0.04 K/uL (0-0.5); Eosinophils % (auto) 0.5 %; Hematocrit (blood only) 32.8 % (37-47); Hemoglobin 10.8 g/dL (12.0-16.0); Immature Granulocytes # (auto) 0.02 K/uL (0.00-0.02); Immature Granulocytes % (auto) 0.3 %; Lymphocytes # (auto) 1.42 K/uL (1.2-3.4); Lymphocytes % (auto) 18.2 %; Mean Corpuscular Hgb Conc 32.9 g/dL (32-36); Mean Corpuscular Volume 89.6 fL (80-100); Mean Platelet Volume 10.3 fL (7.4-10.4); Monocytes # (auto) 1.12 K/uL (0.11-0.59); Monocytes % (auto) 14.3 %; Neutrophils % (auto) 66.4 %; Platelet Count 176 K/uL (130-400); RDW Coefficient of Variation 14.9 % (11.5-14.5); RDW Standard Deviation 48.9 fL (36.4-46.3); Red Blood Count 3.66 M/uL (4.2-5.4); White Blood Count 7.82 K/uL (4.8-10.8)
[2018-04-24 08:24] LABS: BUN Creatinine Ratio 18.3 (10-20); Creatinine Clr Calc Pharmacy 38.5 ml/min; Est GFR (African American) 41.1; Est GFR (Non-African American) 35.4; Potassium 5.4 mmol/L (3.5-5.1)
[2018-04-24 08:25] LABS: Estimated Average Glucose 200 mg/dl
[2018-04-24] MEDS: CARVEDILOL 12.5 MG TAB PO SCH ×2 (09:24→21:07)
[2018-04-24] MEDS: MYCOPHENOLATE MOFETIL 250 MG CAP PO SCH ×2 (09:24→21:06)
[2018-04-24] MEDS: cycloSPORINE 100 MG CAP PO SCH ×2 (09:25→21:07)
[2018-04-24] MEDS: BACLOFEN 10 MG TAB PO SCH ×3 (09:25→21:07)
[2018-04-24] MEDS: GABAPENTIN 400 MG CAP PO SCH ×3 (09:25→21:07)
[2018-04-24] MEDS: SODIUM BICARBONATE 650 MG TAB PO SCH ×3 (09:25→21:07)
[2018-04-24] MEDS: BuPROPion SR 150 MG TABCR PO SCH (09:25)
[2018-04-24] MEDS ORDERED: INSULIN GLARGINE SOLOSTAR 100 UNITS/ML 3 ML PEN SC ONE ×2 (09:30→16:30)
--- NOTE | 2018-04-24 09:59 | Psychiatric Progress Note ---
Date of Service April 24, 2018 Impression / Recommendations Impression 58-year-old woman with multiple medical conditions and borderline personality disorder, admitted to our unit voluntarily after making suicidal statements while in the emergency department for evaluation of chest pain and weakness. Today, the patient tells me that she was never actually suicidal and was not suicidal. She explains the fact that she made suicidal statements in the emergency department by saying that she was under the impression that she was about to be sent home and she felt to physically debilitated to be able to manage safely at home. As she put it "I knew I needed to be somewhere. So that is why I came here." I interviewed the patient at her bedside, and she focused almost exclusively on various somatic complaints, primarily her fatigue and muscle weakness. She also notes shooting pains in or behind her eyes, and a fairly constant "nagging" non-throbbing headache in her frontal region, although the patient says that sometimes the headache is diffuse. The patient tells me that her goal is eventually to be able to return home and that she does not want to be in a skilled nursing. However, she says that she feels that what she needs is physical rehabilitation in order to regain her strength. The patient also tells me that she has a remote history of sinusitis, but does not feel congested and is not feeling a sense of pressure or pain, except as described above. Gabapentin 400 mg 3 times daily was ordered yesterday, and the patient does tell me that she feels that her Z "shooting pains" in or behind her eyes have become less frequent. The patient has essentially acknowledged that she malingered suicidality in order to avoid being sent home from the emergency department, due to debilitation and her belief that she would be unable to care for her own physical needs at home, "at least until I get my strength back." I do not find an indication for psychiatric hospitalization, and would not recommend any change in her current psychiatric medication regimen. I have requested an OT and PT consult to assess her ability to ambulate, transfer, bear weight, and attend her own physical needs� and to assess the appropriate level of care required to address her physical limitations. (1) Suicidal ideation: 04/23 - Made conditional suicidal statements in the ED. Will continue to evaluate - Clarify current medications and then consider adjustments - Q 15 min checks for safety - Encourage participation in group and individual counseling. - Coordinate care with [place], and obtain OP records - Safety planning, including evaluating in home supports 04/24/18 -Patient acknowledges that she is not suicidal. -She acknowledges that she made suicidal statements in the ED as a way of avoiding being sent home. -The patient's report is that she is too physically debilitated to be able to meet her own physical needs without assistance, until she regains her strength. -A PT/OT consult has been requested in order to better assess her physical abilities and help determine the care and support necessary to address her physical needs outside of the hospital. (2) Hypertension: 04/23 - Confirm home meds and continue antihypertensives - Monitor BP 04/24 -BP today was 123/72, (3) Generalized weakness: 04/23 - patient with UTI, treated with chrissie dose of fosfomycin - Maintain MNPR for MDRO with precautions - Assist the patient with ADL's as she is reporting feeling too weak to do so herself - Encourage patient to be OOB as much as possible 04/24 -PT/OT consults ordered to better assess her physical limitations and needs. (4) Diabetes: 04/23 - [facility] to assist in managing multiple medical problems 04/24 - Consult pending. Inventory Assets Strengths: Lives in her own home Needs: Honesty in treatment. Severe character disorder. Risk Factors Assessment Male: No : Yes Do You Have Access To A Gun?: No Health Problems: Yes Mental Health Diagnoses: Yes Substance Use Disorders: No Previous Attempt: No Previous Psychiatric Hospitalization: Yes Hopelessness: Yes Smoker: No Protective Factors Assessment : No Responsible for Young Children: No Employed: No Stable Relationships: No Supportive Family: No Good Rapport with Provider: Yes Interval History Chief Complaint "I need to get my strength back". Review of Systems Sleep Information Total Hours of Sleep: 6.25 Sleep Comments: Patient was incontinent x1. Encouraged fluids when noted awake. Meal Information Percent Meal Consumed - Breakfast: 10 Percent Meal Consumed - Lunch: 10 Percent Meal Consumed - Dinner: 25 Nutrition Comment: Consumed four slices of toast, two milks, and a bowl of fruit. Subjective Subjective Patient was seen & assessed and interval progress reviewed with the Treatment Team. I met individually with the patient in order to assess her current mental status, we will juvenile court judge her response to treatment, make any necessary changes in the patient's treatment plan, and address issues and concerns that may arise. The patient tells me that she feels that she needs to go to a rehabilitation center, temporarily, in order to gain her strength back. She attributes her physical weakness and lack of stamina to the fact that she has had multiple somatic illnesses, particularly recurrent urinary tract infections and, as a result, she has become badly deconditioned. When I asked her about the reason she was in the psychiatric hospital, she essentially acknowledged that she had made suicidal statements because she was under the impression that she was about to be discharged home. The patient states, "I know I cannot go home now. I would not be able to even open the front door by myself. I could not get up and fix meals or get groceries." When asked specifically if she was suicidal, the patient said, "no. But it is what I had to say." She denies any current suicidal thoughts and also denies any current homicidal thoughts. In addition to fatigue and weakness, the patient complains of episodic shooting pains that originate in her head and terminate bilaterally "in" or behind her eyes. The patient tells me these happen infrequently, but when they do happen the pain is excruciating. She also says that she has a "nagging" frontal headache. Physical Exam Psychiatric Orientation: oriented x 3 Apperance: + disheveled Eye Contact: + poor eye contact The patient was found recumbent in bed, and asked me to hand her eyeglasses to her, even though they are within arms reach on a bedside table. Spontaneous, but fairly soft Affect: + blunted affect "Not depressed. Just weak." Thought Process: goal directed thought process, linear/logical thought process and clear/coherent thought process Thought Content: reality based without delusions The patient focuses almost exclusively on various somatic complaints, particularly her generalized fatigue and muscle weakness. Suicidal Thoughts: denies suicidal thoughts Homicidal Thoughts: denies homicidal thoughts Hallucinations: no auditory hallucinations Cognition: recent memory grossly intact, remote memory grossly intact, attention grossly intact and language grossly intact Estimated Intelligence: average estimated intelligence Insight: + limited insight Judgement: + limited judgement Vital Signs (Past 24 Hours) Last Vital Signs Temp 36.5 C 04/24/18 07:05 Pulse 71 04/24/18 07:05 Resp 20 04/24/18 07:05 BP 123/72 04/24/18 07:05 Pulse Ox 96 04/24/18 00:10 Results & Data Laboratory Results Laboratory Results - last 24 hr 04/23/18 04/23/18 04/23/18 12:08 17:13 21:07 WBC RBC Hgb Hct MCV MCH MCHC RDW Std Deviation RDW Coeff of Jaspal Plt Count MPV Immature Gran % (Auto) Neut % (Auto) Lymph % (Auto) [place] % (Auto) Eos % (Auto) Baso % (Auto) Immature Gran # (Auto) Neut # (Auto) Lymph # (Auto) [place] # (Auto) Eos # (Auto) Baso # (Auto) Sodium Potassium Chloride Carbon Dioxide Anion Gap BUN Creatinine Est Cr Clr Drug Dosing Est GFR ( Amer) Est GFR (Non-Af Amer) BUN/Creatinine Ratio Glucose POC Glucose 321 H 301 H 394 H* Estimat Average Glucose Hemoglobin A1c Calcium 04/24/18 04/24/18 04/24/18 00:07 04:04 07:38 WBC 7.82 RBC 3.66 L Hgb 10.8 L Hct 32.8 L MCV 89.6 MCH 29.5 MCHC 32.9 RDW Std Deviation 48.9 H RDW Coeff of Jaspal 14.9 H Plt Count 176 MPV 10.3 Immature Gran % (Auto) 0.3 Neut % (Auto) 66.4 Lymph % (Auto) 18.2 [place] % (Auto) 14.3 Eos % (Auto) 0.5 Baso % (Auto) 0.3 Immature Gran # (Auto) 0.02 Neut # (Auto) 5.20 Lymph # (Auto) 1.42 [place] # (Auto) 1.12 H Eos # (Auto) 0.04 Baso # (Auto) 0.02 Sodium Potassium Chloride Carbon Dioxide Anion Gap BUN Creatinine Est Cr Clr Drug Dosing Est GFR ( Amer) Est GFR (Non-Af Amer) BUN/Creatinine Ratio Glucose POC Glucose 96 82 Estimat Average Glucose Hemoglobin A1c Calcium 04/24/18 04/24/18 04/24/18 07:38 07:38 07:40 WBC RBC Hgb Hct MCV MCH MCHC RDW Std Deviation RDW Coeff of Jaspal Plt Count MPV Immature Gran % (Auto) Neut % (Auto) Lymph % (Auto) [place] % (Auto) Eos % (Auto) Baso % (Auto) Immature Gran # (Auto) Neut # (Auto) Lymph # (Auto) [place] # (Auto) Eos # (Auto) Baso # (Auto) Sodium 132 L Potassium 5.4 H D Chloride 103 Carbon Dioxide 23 Anion Gap 6.0 BUN 29 H Creatinine 1.58 H Est Cr Clr Drug Dosing 38.5 Est GFR ( Amer) 41.1 Est GFR (Non-Af Amer) 35.4 BUN/Creatinine Ratio 18.3 Glucose 157 H POC Glucose 143 H Estimat Average Glucose 200 Hemoglobin A1c 8.6 H Calcium 8.0 L Current Inpatient Medications Current Inpatient Medications: Current Inpatient Medications Baclofen (Lioresal) 10 mg PO TID [facility] Stop: 05/23/18 08:59 Last Admin: 04/24/18 09:25 Dose: 10 mg Bismuth Subsalicylate (Kaopectate) 15 ml PO PRN PRN PRN Reason: Loose Stool Stop: 05/23/18 01:37 Bupropion HCl (Wellbutrin-Sr) 150 mg PO QAM [facility] Stop: 05/23/18 08:59 Last Admin: 04/24/18 09:25 Dose: 150 mg Buspirone HCl (Buspar) 5 mg PO TID PRN PRN Reason: Anxiety Stop: 05/23/18 08:59 Carvedilol (Coreg) 12.5 mg PO BID [facility] Stop: 05/23/18 08:59 Last Admin: 04/24/18 09:24 Dose: 12.5 mg Cyclosporine (Sandimmune) 100 mg PO BID [facility] Stop: 05/23/18 08:59 Last Admin: 04/24/18 09:25 Dose: 100 mg Dextrose (Dextrose 50%) 25 - 50 ml IV UD PRN; Protocol PRN Reason: Hypoglycemia Protocol Stop: 05/23/18 04:00 Gabapentin (Neurontin) 400 mg PO TID [facility] Stop: 05/23/18 08:59 Last Admin: 04/24/18 09:25 Dose: 400 mg Glucagon (Glucagen) 1 mg IM UD PRN; Protocol PRN Reason: Hypoglycemia Protocol Stop: 05/23/18 04:00 Glucose (Glucose 40%) 15 - 30 gm PO UD PRN; Protocol PRN Reason: Hypoglycemia Protocol Stop: 05/23/18 04:00 Glucose (Dex4 Glucose) 4 - 8 tabs PO UD PRN; Protocol PRN Reason: Hypoglycemia Protocol Stop: 05/23/18 04:00 Hydroxyzine HCl (Vistaril) 50 mg PO HSZ PRN PRN Reason: Insomnia Stop: 05/23/18 01:37 Hydroxyzine HCl (Vistaril) 25 mg PO Q4H PRN PRN Reason: Anxiety Stop: 05/23/18 01:37 Insulin Aspart (Novolog Flexpen) 0 units SC ACHS NICK Stop: 05/23/18 03:59 Last Admin: 04/24/18 09:22 Dose: 7 units Lorazepam (Ativan) 1 mg PO BID PRN PRN Reason: Anxiety Stop: 05/23/18 01:43 Last Admin: 04/23/18 19:54 Dose: 1 mg Magnesium Hydroxide (Milk Of Magnesia) 30 ml PO DAILY PRN PRN Reason: Heartburn Stop: 05/23/18 01:37 Miscellaneous (Carbohydrates For Hypoglycemia) 15 - 30 gm PO UD PRN PRN Reason: Hypoglycemia Treatment Stop: 05/23/18 04:00 Miscellaneous Information (Consult Glycemic Management Pharmacy) 1 ea N/A UD PRN PRN Reason: Consult Stop: 05/23/18 03:54 Mycophenolate Mofetil (Cellcept) 250 mg PO BID NICK Stop: 05/23/18 08:59 Last Admin: 04/24/18 09:24 Dose: 250 mg Sodium Bicarbonate (Sodium Bicarbonate) 650 mg PO TID [facility] Stop: 05/23/18 08:59 Last Admin: 04/24/18 09:25 Dose: 650 mg Sodium Chloride ([place] Nasal) 1 - 2 sprays NA PRN PRN PRN Reason: Nasal Dryness/Congestion Stop: 05/23/18 01:37 Trazodone HCl (Desyrel) 50 mg PO HS [facility]ICK Stop: 05/23/18 21:59 Last Admin: 04/23/18 21:31 Dose: 50 mg Post Discharge Appointments Primary Care Physician Name Of Family Doctor: "I don't have one" Therapist Name of Therapist: Olivia Steamship Agent Name of Steamship Agent: Gissel Pa CPT Code CPT Code 98284 _ (1) Hypertension Hypertension type: essential hypertension Qualified Code(s): I10 - Essential (primary) hypertension (2) Diabetes Diabetes mellitus type: type 2 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
--- NOTE | 2018-04-24 12:24 | Pharmacy Report ---
Pharmacy Glycemic Short Note 2 - Date of Service April 24, 2018 - Glycemic Short BSG Results (Last 24 hours): 04/23/18 04/23/18 04/23/18 12:08 17:13 21:07 Glucose POC Glucose 321 H 301 H 394 H* 04/24/18 04/24/18 04/24/18 00:07 04:04 07:38 Glucose 157 H POC Glucose 96 82 04/24/18 07:40 Glucose POC Glucose 143 H OUTPATIENT ANTIDIABETIC REGIMEN: * Basaglar 20 units SQ daily + Novolog 5 units TID with meals (doses from Dr. Vela - unable to confirm doses with patient) * A1c 6.3% (01/06/18) ASSESSMENT: 04/24/18 * Ms. Iverson received a total of 81 units of insulin yesterday (28 units basal, 53 units prandial) * The total daily dose is most likely higher than her average maintenance dose due to prolonged hyperglycemia. * Her fasting bsg was below goal range this morning. Will decrease basal insulin dose today by ~10%. * Will loosen carb ratio beginning at lunchtime bsg check to prevent hypoglycemia. 04/23/18 * Kecia is a 58 yr old female admitted with chest pain, weakness, hyperglycemia , and possible UTI * She was given a 6 unit IV bolus of regular insulin last evening due to BSG persistently > 300 mg/dL * Pharmacy was consulted on 04/23 AM. At this time, a dose of Lantus 15 units SQ was ordered plus Novolog CF/CR based on weight/stress 2 * Fasting BSG improving but remains above goal at 240 mg/dL. Lantus dose was given @0530, therefore effect not seen at this time. I will add a Lantus scale at bedtime. Reassess Lantus dosing on 04/24 AM. * Lunch BSG resulted at 321 mg/dL. Of note, BSG was drawn only ~ 2 hours after AM Novolog dose was administered, therefore Novolog parameters will conservatively tightened. PLAN FOR INPATIENT GLYCEMIC CONTROL: * Basal insulin * Lantus 20 units SQ this AM, then 5 units at 1630. * Bolus insulin - loosen * NovoLog per scale ACHS or Q6hrs while NPO * Goal Range: Low 110 mg/dL - High 140 mg/dL * Correction Factor: 25 mg/dL/unit * Nutritional / Prandial insulin per carb ratio of 1 unit per 8 grams CHO consumed
[2018-04-24 14:53] LABS: Albumin Level 2.4 gm/dl (3.4-5.0); BUN Creatinine Ratio 19.7 (10-20); Bilirubin Direct 0.3 mg/dl (0-0.2); Bilirubin,Total 0.6 mg/dl (0.2-1); Calcium 8.2 mg/dl (8.5-10.1); Creatinine Clr Calc Pharmacy 41.1 ml/min; Est GFR (African American) 44.5; Est GFR (Non-African American) 38.4; Potassium 4.3 mmol/L (3.5-5.1); Total Protein 6.5 gm/dl (6.4-8.2)
[2018-04-24] MEDS: TRAZODONE HCL 50 MG TAB PO SCH (21:07)
[2018-04-25] MEDS: SODIUM BICARBONATE 650 MG TAB PO SCH ×3 (09:36→21:12)
[2018-04-25] MEDS: BACLOFEN 10 MG TAB PO SCH ×3 (09:36→21:11)
[2018-04-25] MEDS: GABAPENTIN 400 MG CAP PO SCH ×3 (09:36→21:11)
[2018-04-25] MEDS: BuPROPion SR 150 MG TABCR PO SCH (09:36)
[2018-04-25] MEDS: cycloSPORINE 100 MG CAP PO SCH ×2 (09:37→21:12)
[2018-04-25] MEDS: MYCOPHENOLATE MOFETIL 250 MG CAP PO SCH ×2 (09:38→21:11)
[2018-04-25] MEDS: INSULIN ASPART 100 UNITS/ML 3 ML PEN SC SCH ×4 (09:40→21:23)
[2018-04-25] MEDS: CARVEDILOL 12.5 MG TAB PO SCH ×2 (09:45→21:11)
[2018-04-25 09:46] LABS: Basophils # (auto) 0.02 K/uL (0-0.2); Basophils % (auto) 0.4 %; Eosinophils # (auto) 0.13 K/uL (0-0.5); Eosinophils % (auto) 2.4 %; Hematocrit (blood only) 32.2 % (37-47); Hemoglobin 10.8 g/dL (12.0-16.0); Immature Granulocytes # (auto) 0.01 K/uL (0.00-0.02); Immature Granulocytes % (auto) 0.2 %; Lymphocytes % (auto) 36.2 %; Mean Corpuscular Hgb Conc 33.5 g/dL (32-36); Mean Corpuscular Volume 89.4 fL (80-100); Mean Platelet Volume 10.6 fL (7.4-10.4); Monocytes # (auto) 1.11 K/uL (0.11-0.59); Monocytes % (auto) 20.1 %; Neutrophils # (auto) 2.26 K/uL (1.4-6.5); Neutrophils % (auto) 40.7 %; Platelet Count 178 K/uL (130-400); RDW Coefficient of Variation 14.9 % (11.5-14.5); RDW Standard Deviation 48.9 fL (36.4-46.3); White Blood Count 5.53 K/uL (4.8-10.8)
[2018-04-25 10:20] LABS: Potassium 5.2 mmol/L (3.5-5.1)
[2018-04-25 10:21] LABS: BUN Creatinine Ratio 19.9 (10-20); Calcium 8.8 mg/dl (8.5-10.1); Creatinine Clr Calc Pharmacy 40.3 ml/min; Est GFR (African American) 43.4; Est GFR (Non-African American) 37.4
--- NOTE | 2018-04-25 11:41 | Hospitalist Progress Note ---
Date of Service April 24, 2018 Assessment & Plan (1) Acute UTI (urinary tract infection): Dosed on 04/22 with fosfomycin 3g x1 PCN allergy Cx on 04/10 with ESBL, awaiting current cx Elevated WBC in the ED, improved 04/24 (2) Atypical chest pain: Trop neg x1, EKG WNL in the ED Concern from psych that this was malingering for admission Has not recurred (3) Generalized weakness: Could be related to UTI vs poor PO intake vs deconditioning vs multiple medications PT/OT pending Pt requesting other care arrangements (4) Diarrhea: Apparently discussed in the ED, denies currently Cdiff neg will monitor. Placed on lactobacillus. (5) Hypertension: continue home meds (6) GERD (gastroesophageal reflux disease): continue home meds (7) Diabetes: continue home meds SSI (8) CAD (coronary artery disease): continue home meds (9) Combative behavior: As per psych (10) Kidney transplant status, cadaveric: continue home meds Baseline cr is unclear to me as pt does not have many labs in our system 1.6 on 04/22, which was improved from 04/10 when it was 1.9 and 12/2017 at 2.49 (11) Systemic lupus erythematosus: continue home meds Subjective Patient reports feeling better today. She did have a bout of diarrhea however. But she does state to feel a little stronger as compared to yesterday. Physical Exam 2 Vital Signs (Past 24 Hours): Last Vital Signs Temp 36.5 C 04/24/18 07:05 Pulse 71 04/24/18 07:05 Resp 20 04/24/18 07:05 BP 123/72 04/24/18 07:05 Pulse Ox 96 04/24/18 00:10 Physical Exam: Constitutional: well nourished appears older than stated age Eyes: normal visual millan by confrontation and + anicteric sclerae Neck: normal visual inspection and trachea midline Respiratory: normal respiratory effort, lungs clear to auscultation Cardiovascular: Rate/Rhythm: regular rate and regular rhythm Gastrointestinal (Abdomen): Inspection/Auscultation: abdomen not distended Percussion/Palpation: + abdomen tender (pelvic TTP) and abdomen soft Musculoskeletal: Head/Neck/Chest: normocephalic and head atraumatic negative for edema, peripheral pulses intact Skin: no rashes, warm and dry Neurologic: awake; not confused Speech / Cognition: normal speech slow to answer but answers are c/w questions being asked. Speaks is full sentences. Psychiatric: A+Ox3, euthymic affect _ (1) Systemic lupus erythematosus Systemic lupus erythematosus organ involvement: glomerular disease Systemic lupus erythematosus type: unspecified Qualified Code(s): M32.14 - Glomerular disease in systemic lupus erythematosus (2) Diabetes Chronic kidney disease stage: Diabetes mellitus complication detail: Diabetes mellitus complication status: with unspecified complications Diabetes mellitus manager terminal insulin use: with retirement use Diabetes mellitus macular edema: Diabetes mellitus type: type 2 Diabetic retinopathy severity: Laterality: Proliferative retinopathy type: Qualified Code(s): E11.8 - Type 2 diabetes mellitus with unspecified complications; Z79.4 - moth exterminator (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 (3) CAD (coronary artery disease) Associated angina: angina presence unspecified Coronary Disease-Associated Artery/Lesion type: [place] artery [place] vs. transplanted heart: [place] heart Qualified Code(s): I25.10 - Atherosclerotic heart disease of [place] coronary artery without angina pectoris (4) GERD (gastroesophageal reflux disease) Esophagitis presence: esophagitis presence not specified Qualified Code(s): K21.9 - Gastro-esophageal reflux disease without esophagitis (5) Hypertension Hypertension type: essential hypertension Qualified Code(s): I10 - Essential (primary) hypertension
--- NOTE | 2018-04-25 11:51 | Pharmacy Report ---
PHA: Glycemic Control AP - Date of Service April 25, 2018 - Assessment & Plan The patient is currently receiving ~54 units of insulin per day. BSGs ranging 82 - 181 mg/dl over the past 24hrs. * Basal insulin: Lantus 25 units every 24 hours * Correctional Insulin: Novolog Correction per scale ACHS Goal Range: Low 110 mg/dL - High 140 mg/dL Correction Factor: 20 mg/dL/unit * Prandial insulin: Per carb ratio of 1 unit per 8 grams CHO consumed BSGs continue to improve, no changes needed to inpatient regimen at this time. Pharmacy will continue to monitor patient daily and write orders per [facility] ED inpatient glycemic control protocol. Thanks. * Please note that the plan above was derived based on current level of insulin resistance and hospital stress. These recommendations are appropriate for inpatient admission only. Plan of care upon discharge will need to be reassessed to avoid potential outpatient hypo/hyperglycemia.
[2018-04-25] MEDS ORDERED: INSULIN GLARGINE SOLOSTAR 100 UNITS/ML 3 ML PEN SC SCH (12:00)
[2018-04-25] MEDS: LACTOBACILLUS ACIDOPHILUS (FLORANEX) TAB PO SCH ×4 (13:43→21:13)
--- NOTE | 2018-04-25 14:14 | Psychiatric Progress Note ---
Date of Service April 25, 2018 Impression / Recommendations Impression 58-year-old woman with multiple medical conditions and borderline personality disorder, admitted to our unit voluntarily after making suicidal statements while in the emergency department for evaluation of chest pain and weakness. She has minimized any SI since admission stating that she didn't want to be sent away. She has submitted a 72 hour notice and states that she doesn't want to go to SNF. The patient seems more disorganized in her conversation than on previous contacts and underlying cognitive decline is suspected. She was encouraged to be more active on the unit today so that we could in any way consider home health referral. At this time she cannot meet her needs outside of the hospital. (1) Suicidal ideation: 04/23 - Made conditional suicidal statements in the ED. Will continue to evaluate - Clarify current medications and then consider adjustments - Q 15 min checks for safety - Encourage participation in group and individual counseling. - Coordinate care with [place], and obtain OP records - Safety planning, including evaluating in home supports 04/24/18 -Patient acknowledges that she is not suicidal. -She acknowledges that she made suicidal statements in the ED as a way of avoiding being sent home. -The patient's report is that she is too physically debilitated to be able to meet her own physical needs without assistance, until she regains her strength. -A PT/OT consult has been requested in order to better assess her physical abilities and help determine the care and support necessary to address her physical needs outside of the hospital. (2) Hypertension: 04/23 - Confirm home meds and continue antihypertensives - Monitor BP 04/24 -BP today was 123/72, (3) Generalized weakness: 04/23 - patient with UTI, treated with chrissie dose of fosfomycin - Maintain MNPR for MDRO with precautions - Assist the patient with ADL's as she is reporting feeling too weak to do so herself - Encourage patient to be OOB as much as possible 04/24 -PT/OT consults ordered to better assess her physical limitations and needs. (4) Diabetes: 04/23 - Consult [facility] hospitalists to assist in managing multiple medical problems 04/24 - Consult pending. Inventory Assets Strengths: Lives in her own home Needs: Honesty in treatment. Severe character disorder. Risk Factors Assessment Male: No : Yes Do You Have Access To A Gun?: No Health Problems: Yes Mental Health Diagnoses: Yes Substance Use Disorders: No Previous Attempt: No Previous Psychiatric Hospitalization: Yes Hopelessness: Yes Smoker: No Protective Factors Assessment : No Responsible for Young Children: No Employed: No Stable Relationships: No Supportive Family: No Good Rapport with Provider: Yes Interval History Chief Complaint "They told me to just in the cold". Review of Systems Sleep Information Total Hours of Sleep: 6.25 Sleep Comments: pt awoke x2 incontinent of urine. pt cleaned, bed linen changed and clean. pt pleasant and cooperative. pt on q-15 minute checks Meal Information Percent Meal Consumed - Breakfast: 0 Percent Meal Consumed - Lunch: 80 Percent Meal Consumed - Dinner: 100 Nutrition Comment: Consumed four slices of toast, two milks, and a bowl of fruit. Subjective Subjective Patient was seen & assessed and interval progress reviewed with Nursing and SW. Medicine advised to continue home medications and to follow PT recs re: SNF placement. Patient submitted her 72 hour notice to withdraw from care. Patient has been reportedly purposely staying in her room, tells me doesn't eat in the common area as doesn't want to see the desserts that everyone else gets. Reviewed PT recs and that cannot discharge home today as she has shown no ability to care for self outside of hospital. She requests to get OOB for BM only. She was very focussed on being arrested because she can't get transportation to be fingerprinted and said if she was at home right now she'd be smashing everything so her sister can't steal it. Physical Exam Psychiatric Orientation: alert, oriented to person, oriented to place and oriented to time Apperance: + disheveled Eye Contact: + poor eye contact in bed Speech: normal rate/rhythm/volume of speech Affect: + blunted affect Mood: + anxious mood Thought Process: + tangential thought process and + perseveration Thought Content: + preoccupation and + hopelessness Suicidal Thoughts: denies suicidal thoughts Homicidal Thoughts: denies homicidal thoughts Hallucinations: no auditory hallucinations and no visual hallucinations Cognition: language grossly intact; + recent memory not intact and + attention not intact Estimated Intelligence: average estimated intelligence Insight: + poor insight Judgement: + poor judgement Vital Signs (Past 24 Hours) Last Vital Signs Temp 36.8 C 04/25/18 10:00 Pulse 62 04/25/18 10:00 Resp 20 04/25/18 10:00 BP 134/81 04/25/18 10:00 Pulse Ox 96 04/24/18 00:10 Results & Data Laboratory Results Laboratory Results - last 24 hr 04/24/18 04/24/18 04/24/18 14:14 17:27 21:00 WBC RBC Hgb Hct MCV MCH MCHC RDW Std Deviation RDW Coeff of Jaspal Plt Count MPV Immature Gran % (Auto) Neut % (Auto) Lymph % (Auto) [place] % (Auto) Eos % (Auto) Baso % (Auto) Immature Gran # (Auto) Neut # (Auto) Lymph # (Auto) [place] # (Auto) Eos # (Auto) Baso # (Auto) Sodium 129 L Potassium 4.3 D Chloride 99 Carbon Dioxide 24 Anion Gap 6.0 BUN 29 H Creatinine 1.48 H Est Cr Clr Drug Dosing 41.1 Est GFR ( Amer) 44.5 Est GFR (Non-Af Amer) 38.4 BUN/Creatinine Ratio 19.7 Glucose 187 H POC Glucose 148 H 181 H Calcium 8.2 L Total Bilirubin 0.6 Direct Bilirubin 0.3 H AST 36 ALT 33 Alkaline Phosphatase 95 Total Protein 6.5 Albumin 2.4 L 04/25/18 04/25/18 04/25/18 08:54 09:27 09:27 WBC 5.53 RBC 3.60 L Hgb 10.8 L Hct 32.2 L MCV 89.4 MCH 30.0 MCHC 33.5 RDW Std Deviation 48.9 H RDW Coeff of Jaspal 14.9 H Plt Count 178 MPV 10.6 H Immature Gran % (Auto) 0.2 Neut % (Auto) 40.7 Lymph % (Auto) 36.2 Victoria % (Auto) 20.1 Eos % (Auto) 2.4 Baso % (Auto) 0.4 Immature Gran # (Auto) 0.01 Neut # (Auto) 2.26 Lymph # (Auto) 2.00 Victoria # (Auto) 1.11 H Eos # (Auto) 0.13 Baso # (Auto) 0.02 Sodium 132 L Potassium 5.2 H D Chloride 105 Carbon Dioxide 22 Anion Gap 5.0 BUN 30 H Creatinine 1.51 H Est Cr Clr Drug Dosing 40.3 Est GFR ( Amer) 43.4 Est GFR (Non-Af Amer) 37.4 BUN/Creatinine Ratio 19.9 Glucose 170 H POC Glucose 165 H Calcium 8.8 Total Bilirubin Direct Bilirubin AST ALT Alkaline Phosphatase Total Protein Albumin 04/25/18 12:46 WBC RBC Hgb Hct MCV MCH MCHC RDW Std Deviation RDW Coeff of Jaspal Plt Count MPV Immature Gran % (Auto) Neut % (Auto) Lymph % (Auto) [place] % (Auto) Eos % (Auto) Baso % (Auto) Immature Gran # (Auto) Neut # (Auto) Lymph # (Auto) [place] # (Auto) Eos # (Auto) Baso # (Auto) Sodium Potassium Chloride Carbon Dioxide Anion Gap BUN Creatinine Est Cr Clr Drug Dosing Est GFR ( Amer) Est GFR (Non-Af Amer) BUN/Creatinine Ratio Glucose POC Glucose 181 H Calcium Total Bilirubin Direct Bilirubin AST ALT Alkaline Phosphatase Total Protein Albumin Current Inpatient Medications Current Inpatient Medications: Current Inpatient Medications Baclofen (Lioresal) 10 mg PO TID [facility] Stop: 05/23/18 08:59 Last Admin: 04/25/18 13:38 Dose: 10 mg Bismuth Subsalicylate (Kaopectate) 15 ml PO PRN PRN PRN Reason: Loose Stool Stop: 05/23/18 01:37 Bupropion HCl (Wellbutrin-Sr) 150 mg PO QAM [facility] Stop: 05/23/18 08:59 Last Admin: 04/25/18 09:36 Dose: 150 mg Buspirone HCl (Buspar) 5 mg PO TID PRN PRN Reason: Anxiety Stop: 05/23/18 08:59 Carvedilol (Coreg) 12.5 mg PO BID [facility] Stop: 05/23/18 08:59 Last Admin: 04/25/18 09:45 Dose: 12.5 mg Cyclosporine (Sandimmune) 100 mg PO BID [facility] Stop: 05/23/18 08:59 Last Admin: 04/25/18 09:37 Dose: 100 mg Dextrose (Dextrose 50%) 25 - 50 ml IV UD PRN; Protocol PRN Reason: Hypoglycemia Protocol Stop: 05/23/18 04:00 Gabapentin (Neurontin) 400 mg PO TID [facility] Stop: 05/23/18 08:59 Last Admin: 04/25/18 13:38 Dose: 400 mg Glucagon (Glucagen) 1 mg IM UD PRN; Protocol PRN Reason: Hypoglycemia Protocol Stop: 05/23/18 04:00 Glucose (Glucose 40%) 15 - 30 gm PO UD PRN; Protocol PRN Reason: Hypoglycemia Protocol Stop: 05/23/18 04:00 Glucose (Dex4 Glucose) 4 - 8 tabs PO UD PRN; Protocol PRN Reason: Hypoglycemia Protocol Stop: 05/23/18 04:00 Hydroxyzine HCl (Vistaril) 50 mg PO HSZ PRN PRN Reason: Insomnia Stop: 05/23/18 01:37 Hydroxyzine HCl (Vistaril) 25 mg PO Q4H PRN PRN Reason: Anxiety Stop: 05/23/18 01:37 Insulin Aspart (Novolog Flexpen) 0 units SC ACHS [facility] Stop: 05/23/18 03:59 Last Admin: 04/25/18 13:39 Dose: 7 units Insulin Glargine (Lantus Solostar Pen) 25 units SC DAILY [facility]; Protocol Stop: 05/25/18 11:59 Last Admin: 04/25/18 13:42 Dose: 25 units Lactobacillus Acidophilus (Floranex) 4 tab PO QIDM [facility] Stop: 05/25/18 12:29 Last Admin: 04/25/18 13:43 Dose: Not Given Lorazepam (Ativan) 1 mg PO BID PRN PRN Reason: Anxiety Stop: 05/23/18 01:43 Last Admin: 04/23/18 19:54 Dose: 1 mg Magnesium Hydroxide (Milk Of Magnesia) 30 ml PO DAILY PRN PRN Reason: Heartburn Stop: 05/23/18 01:37 Miscellaneous (Carbohydrates For Hypoglycemia) 15 - 30 gm PO UD PRN PRN Reason: Hypoglycemia Treatment Stop: 05/23/18 04:00 Miscellaneous Information (Consult Glycemic Management Pharmacy) 1 ea N/A UD PRN PRN Reason: Consult Stop: 05/23/18 03:54 Mycophenolate Mofetil (Cellcept) 250 mg PO BID [facility] Stop: 05/23/18 08:59 Last Admin: 04/25/18 09:38 Dose: 250 mg Sodium Bicarbonate (Sodium Bicarbonate) 650 mg PO TID [facility] Stop: 05/23/18 08:59 Last Admin: 04/25/18 13:38 Dose: 650 mg Sodium Chloride ([place] Nasal) 1 - 2 sprays NA PRN PRN PRN Reason: Nasal Dryness/Congestion Stop: 05/23/18 01:37 Trazodone HCl (Desyrel) 50 mg PO HS [facility] Stop: 05/23/18 21:59 Last Admin: 04/24/18 21:07 Dose: 50 mg Post Discharge Appointments Primary Care Physician Name Of Family Doctor: "I don't have one" Psychiatrist Name of Psychiatrist: Rand Swain PA-C [facility] Psychiatrist's Therapist Name of Therapist: Olivia Property Inspector Name of Property Inspector: Gissel Pa Phone Number for Property Inspector: [phone] Home Health Services Home Health Services:: Physical Therapy and Home health agency Contact Information Discharge Discharge Address: [address] [place] [address] [place] [address] CPT Code CPT Code 00091 _ (1) Hypertension Hypertension type: essential hypertension Qualified Code(s): I10 - Essential (primary) hypertension (2) Diabetes Diabetes mellitus type: type 2 Diabetes mellitus profiler insulin use: with profiler use Diabetes mellitus complication status: with unspecified complications Diabetes mellitus complication detail: Diabetic retinopathy severity: Proliferative retinopathy type: Diabetes mellitus macular edema: Laterality: Chronic kidney disease stage: Qualified Code(s): E11.8 - Type 2 diabetes mellitus with unspecified complications; Z79.4 - plate slitter and inspector (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
[2018-04-25] MEDS: TRAZODONE HCL 50 MG TAB PO SCH (21:12)
[2018-04-25] MEDS ORDERED: ACETAMINOPHEN 325 MG TAB PO PRN (21:34)
[2018-04-25] MEDS: LORazepam 1 MG TAB PO PRN (22:12)
[2018-04-26] MEDS: CARBOHYDRATES FOR HYPOGLYCEMIA PO PRN ×2 (08:45→09:26)
[2018-04-26] MEDS ORDERED: INSULIN GLARGINE SOLOSTAR 100 UNITS/ML 3 ML PEN SC SCH (09:00)
[2018-04-26] MEDS: INSULIN ASPART 100 UNITS/ML 3 ML PEN SC SCH ×4 (09:24→21:46)
[2018-04-26] MEDS: MYCOPHENOLATE MOFETIL 250 MG CAP PO SCH ×2 (09:36→21:44)
[2018-04-26] MEDS: BuPROPion SR 150 MG TABCR PO SCH (09:36)
[2018-04-26] MEDS: CARVEDILOL 12.5 MG TAB PO SCH ×2 (09:36→21:44)
[2018-04-26] MEDS: GABAPENTIN 400 MG CAP PO SCH ×3 (09:36→21:45)
[2018-04-26] MEDS: BACLOFEN 10 MG TAB PO SCH ×3 (09:36→21:45)
[2018-04-26] MEDS: SODIUM BICARBONATE 650 MG TAB PO SCH ×3 (09:36→21:45)
[2018-04-26] MEDS: cycloSPORINE 100 MG CAP PO SCH ×2 (09:36→21:45)
--- NOTE | 2018-04-26 10:01 | Pharmacy Report ---
Pharmacy Glycemic Short Note 2 - Date of Service April 26, 2018 - Glycemic Short BSG Results (Last 24 hours): 04/25/18 04/25/18 04/25/18 09:27 12:46 17:13 Glucose 170 H POC Glucose 181 H 229 H 04/25/18 04/26/18 04/26/18 20:43 08:37 09:06 Glucose POC Glucose 185 H 69 L* 68 L* OUTPATIENT ANTIDIABETIC REGIMEN: * Basaglar 20 units SQ daily + Novolog 5 units TID with meals (doses from Dr. Vela - unable to confirm doses with patient) * A1c 6.3% (01/06/18) ASSESSMENT: * Patient is currently receiving an average of 45 units of insulin per day * 25 units of basal insulin * 17 units of prandial/correctional insulin * BSGs ranging 69-229 mg/dl over the past 24hrs * Changes needed to insulin regimen: * AM Fasting BSG = 69mg/dl; LOW BSG. Basal insulin needs decreased to prevent hypo tomorrow * Post-prandial BSGs are in goal range, no changes needed to CF/CR PLAN FOR INPATIENT GLYCEMIC CONTROL: * Basal insulin: decrease * Lantus 22 units SQ this AM * Bolus insulin * NovoLog per scale ACHS or Q6hrs while NPO * Goal Range: Low 110 mg/dL - High 140 mg/dL * Correction Factor: 25 mg/dL/unit * Nutritional / Prandial insulin per carb ratio of 1 unit per 8 grams CHO consumed
[2018-04-26] MEDS: LACTOBACILLUS ACIDOPHILUS (FLORANEX) TAB PO SCH ×4 (11:27→21:45)
--- NOTE | 2018-04-26 16:52 | Psychiatric Progress Note ---
Date of Service April 26, 2018 Impression / Recommendations Impression 58-year-old woman with multiple medical conditions and borderline personality disorder, admitted to our unit voluntarily after making suicidal statements while in the emergency department for evaluation of chest pain and weakness. She has minimized any SI since admission stating that she didn't want to be sent away. She has submitted a 72 hour notice and states that she doesn't want to go to SNF. The patient seems more disorganized in her conversation than on previous contacts and underlying cognitive decline is suspected. She has been more irritable today and disrespectful with staff and cannot engage around discharge planning. (1) Suicidal ideation: 04/23 - Made conditional suicidal statements in the ED. Will continue to evaluate - Clarify current medications and then consider adjustments - Q 15 min checks for safety - Encourage participation in group and individual counseling. - Coordinate care with [facility], and obtain OP records - Safety planning, including evaluating in home supports 04/24/18 -Patient acknowledges that she is not suicidal. -She acknowledges that she made suicidal statements in the ED as a way of avoiding being sent home. -The patient's report is that she is too physically debilitated to be able to meet her own physical needs without assistance, until she regains her strength. -A PT/OT consult has been requested in order to better assess her physical abilities and help determine the care and support necessary to address her physical needs outside of the hospital. 04/26 --reattempt engagement around discharge planning and capacity assessment by primary team in am. She would benefit from a trial of an atypical antipsychotic but likely doesn't meet criteria for forced meds at this time, currently on voluntary. It is difficult to tell how much of current presentation is personality driven vs cognitive. Doesn't appear psychotic at this time but quite labile and needs to continue MN[facility]. (2) Hypertension: 04/23 - Confirm home meds and continue antihypertensives - Monitor BP 04/24 -BP today was 123/72, (3) Generalized weakness: 04/23 - patient with UTI, treated with chrissie dose of fosfomycin - Maintain MNPR for MDRO with precautions - Assist the patient with ADL's as she is reporting feeling too weak to do so herself - Encourage patient to be OOB as much as possible 04/24 -PT/OT consults ordered to better assess her physical limitations and needs. (4) Diabetes: 04/23 - Consult [facility] hospitalists to assist in managing multiple medical problems 04/24 - Consult pending. 04/26--blood sugar 69 this am, case reviewed with Dr. Bhatia, no additional recs at this time. Inventory Assets Strengths: Lives in her own home Needs: Honesty in treatment. Severe character disorder. Risk Factors Assessment Male: No : Yes Do You Have Access To A Gun?: No Health Problems: Yes Mental Health Diagnoses: Yes Substance Use Disorders: No Previous Attempt: No Previous Psychiatric Hospitalization: Yes Hopelessness: Yes Smoker: No Protective Factors Assessment : No Responsible for Young Children: No Employed: No Stable Relationships: No Supportive Family: No Good Rapport with Provider: Yes Interval History Chief Complaint swearing at nurses this am and refusing medication Review of Systems Sleep Information Total Hours of Sleep: 8.5 Sleep Comments: pt given vistaril per rn. pt awoke x1 incontinent. pt irritable with profanity, refusing to get out of bed so her bed linen can be change. pt able to lean to one side of the bed so clean, dry linen can be placed underneath. pt on q-15 minute checks Meal Information Percent Meal Consumed - Breakfast: 100 Percent Meal Consumed - Lunch: 0 Percent Meal Consumed - Dinner: 0 Nutrition Comment: Consumed four slices of toast, two milks, and a bowl of fruit. Subjective Subjective Patient was seen & assessed and interval progress reviewed with Nursing and social work faculty member. Patient remains incontinent in depends, gamey with staff around [place], demanding tylenol then refusing it last night and leaving depends on floor. OOB with cane yesterday but won't interact outside of room. She refused to cooperate with exam this am or to complete a miniCog or MOCA assessment. Multiple staff present during direct care. She will not engage in meaningful conversation around snf care nor has she rescinded her 72 hour notice. Physical Exam Mental Examination she will not answer questions reliably today about SI or HI Appearance: Disheveled Eye Contact: Avoids Eye Contact Motor Behavior: Restless (in bed when approached, otherwise fine/no abnormal movements) Speech: Loud Mood: Irritable Affect: Angry Thought Process: Disorganized Thought Content: Perseveration Hallucinations: None Insight: Poor Judgement: Poor Vital Signs (Past 24 Hours) Last Vital Signs Temp 36.5 C 04/26/18 07:01 Pulse 60 04/26/18 07:01 Resp 16 04/26/18 07:01 BP 127/73 04/26/18 07:01 Pulse Ox 96 04/24/18 00:10 Results & Data Laboratory Results Laboratory Results - last 24 hr 04/25/18 04/25/18 04/26/18 17:13 20:43 08:37 POC Glucose 229 H 185 H 69 L* 04/26/18 04/26/18 09:06 10:01 POC Glucose 68 L* 170 H Current Inpatient Medications Current Inpatient Medications: Current Inpatient Medications Acetaminophen (Tylenol) 650 mg PO Q4H PRN PRN Reason: Headache or Minor Fever Stop: 05/25/18 21:33 Baclofen (Lioresal) 10 mg PO TID [facility] Stop: 05/23/18 08:59 Last Admin: 04/26/18 14:44 Dose: Not Given Bismuth Subsalicylate (Kaopectate) 15 ml PO PRN PRN PRN Reason: Loose Stool Stop: 05/23/18 01:37 Bupropion HCl (Wellbutrin-Sr) 150 mg PO QAM [facility] Stop: 05/23/18 08:59 Last Admin: 04/26/18 09:36 Dose: Not Given Buspirone HCl (Buspar) 5 mg PO TID PRN PRN Reason: Anxiety Stop: 05/23/18 08:59 Carvedilol (Coreg) 12.5 mg PO BID [facility] Stop: 05/23/18 08:59 Last Admin: 04/26/18 09:36 Dose: Not Given Cyclosporine (Sandimmune) 100 mg PO BID [facility] Stop: 05/23/18 08:59 Last Admin: 04/26/18 09:36 Dose: Not Given Dextrose (Dextrose 50%) 25 - 50 ml IV UD PRN; Protocol PRN Reason: Hypoglycemia Protocol Stop: 05/23/18 04:00 Gabapentin (Neurontin) 400 mg PO TID [facility] Stop: 05/23/18 08:59 Last Admin: 04/26/18 14:45 Dose: Not Given Glucagon (Glucagen) 1 mg IM UD PRN; Protocol PRN Reason: Hypoglycemia Protocol Stop: 05/23/18 04:00 Glucose (Glucose 40%) 15 - 30 gm PO UD PRN; Protocol PRN Reason: Hypoglycemia Protocol Stop: 05/23/18 04:00 Glucose (Dex4 Glucose) 4 - 8 tabs PO UD PRN; Protocol PRN Reason: Hypoglycemia Protocol Stop: 05/23/18 04:00 Hydroxyzine HCl (Vistaril) 50 mg PO HSZ PRN PRN Reason: Insomnia Stop: 05/23/18 01:37 Last Admin: 04/25/18 22:12 Dose: 50 mg Hydroxyzine HCl (Vistaril) 25 mg PO Q4H PRN PRN Reason: Anxiety Stop: 05/23/18 01:37 Insulin Aspart (Novolog Flexpen) 0 units SC ACHS [facility] Stop: 05/23/18 03:59 Last Admin: 04/26/18 13:20 Dose: Not Given Insulin Glargine (Lantus Solostar Pen) 22 units SC DAILY [facility]; Protocol Stop: 05/26/18 08:59 Last Admin: 04/26/18 13:19 Dose: Not Given Lactobacillus Acidophilus (Floranex) 4 tab PO QIDM [facility] Stop: 05/25/18 12:29 Last Admin: 04/26/18 13:35 Dose: Not Given Lorazepam (Ativan) 1 mg PO BID PRN PRN Reason: Anxiety Stop: 05/23/18 01:43 Last Admin: 04/25/18 22:12 Dose: 1 mg Magnesium Hydroxide (Milk Of Magnesia) 30 ml PO DAILY PRN PRN Reason: Heartburn Stop: 05/23/18 01:37 Miscellaneous (Carbohydrates For Hypoglycemia) 15 - 30 gm PO UD PRN PRN Reason: Hypoglycemia Treatment Stop: 05/23/18 04:00 Last Admin: 04/26/18 09:26 Dose: 13 gm Miscellaneous Information (Consult Glycemic Management Pharmacy) 1 ea N/A UD PRN PRN Reason: Consult Stop: 05/23/18 03:54 Mycophenolate Mofetil (Cellcept) 250 mg PO BID [facility] Stop: 05/23/18 08:59 Last Admin: 04/26/18 09:36 Dose: Not Given Sodium Bicarbonate (Sodium Bicarbonate) 650 mg PO TID [facility] Stop: 05/23/18 08:59 Last Admin: 04/26/18 14:45 Dose: Not Given Sodium Chloride ([place] Nasal) 1 - 2 sprays NA PRN PRN PRN Reason: Nasal Dryness/Congestion Stop: 05/23/18 01:37 Trazodone HCl (Desyrel) 50 mg PO HS [facility] Stop: 05/23/18 21:59 Last Admin: 04/25/18 21:12 Dose: 50 mg Post Discharge Appointments Primary Care Physician Name Of Family Doctor: "I don't have one" Psychiatrist Name of Psychiatrist: Rand Swain PA-C [facility] Psychiatrist's Therapist Name of Therapist: Olivia Pipe Supervisor Name of Pipe Supervisor: Gissel Pa Phone Number for Pipe Supervisor: [phone] Home Health Services Home Health Services:: Physical Therapy and Home health agency Contact Information Discharge Discharge Address: [address] [place] [address] [place] [address] CPT Code CPT Code 02249 _ (1) Hypertension Hypertension type: essential hypertension Qualified Code(s): I10 - Essential (primary) hypertension (2) Diabetes Diabetes mellitus type: type 2 Diabetes mellitus ferry terminal agent insulin use: with detention use Diabetes mellitus complication status: with unspecified complications Diabetes mellitus complication detail: Diabetic retinopathy severity: Proliferative retinopathy type: Diabetes mellitus macular edema: Laterality: Chronic kidney disease stage: Qualified Code(s): E11.8 - Type 2 diabetes mellitus with unspecified complications; Z79.4 - moth exterminator (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
[2018-04-26] MEDS ORDERED: OLANZAPINE ZYDIS 5 MG ORALLY DIS. TAB PO PRN (21:19)
--- NOTE | 2018-04-26 21:19 | Psychiatric Progress Note ---
Date of Service April 26, 2018 Impression / Recommendations Impression 58-year-old woman with multiple medical conditions and borderline personality disorder, admitted to our unit voluntarily after making suicidal statements while in the emergency department for evaluation of chest pain and weakness. She has minimized any SI since admission stating that she didn't want to be sent away. She has submitted a 72 hour notice and states that she doesn't want to go to SNF. The patient seems more disorganized in her conversation than on previous contacts and underlying cognitive decline is suspected. She has been more irritable today and disrespectful with staff and cannot engage around discharge planning. Inventory Assets Strengths: Lives in her own home Needs: Honesty in treatment. Severe character disorder. Risk Factors Assessment Male: No : Yes Do You Have Access To A Gun?: No Health Problems: Yes Mental Health Diagnoses: Yes Substance Use Disorders: No Previous Attempt: No Previous Psychiatric Hospitalization: Yes Hopelessness: Yes Smoker: No Protective Factors Assessment : No Responsible for Young Children: No Employed: No Stable Relationships: No Supportive Family: No Good Rapport with Provider: Yes Interval History Chief Complaint stopped to reevaluated patient as concern about ongoing treatment plan. Reviewed written behavioral plan. She again exhibited restlessness and increased irritability at end of shift. Patient is naked and yelling at staff. She is claims she hasn't been evaluated. Reviewed with patient that she is not following voluntary guidelines and indications for security to be called. Offered Zyprexa zydis 5 mg and she is refusing. Will order prn. She is currently being monitored in the [facility]. She is rambling to self but no engaging in any self harm. We are providing to support to maintain patient on voluntary status as that was her intent. Review of Systems Sleep Information Total Hours of Sleep: 8.5 Sleep Comments: pt given vistaril per rn. pt awoke x1 incontinent. pt irritable with profanity, refusing to get out of bed so her bed linen can be change. pt able to lean to one side of the bed so clean, dry linen can be placed underneath. pt on q-15 minute checks Meal Information Percent Meal Consumed - Breakfast: 100 Percent Meal Consumed - Lunch: 0 Percent Meal Consumed - Dinner: 0 Nutrition Comment: Consumed four slices of toast, two milks, and a bowl of fruit. Physical Exam Vital Signs (Past 24 Hours) Last Vital Signs Temp 36.5 C 04/26/18 07:01 Pulse 60 04/26/18 07:01 Resp 16 04/26/18 07:01 BP 127/73 04/26/18 07:01 Pulse Ox 96 04/24/18 00:10 Results & Data Laboratory Results Laboratory Results - last 24 hr 04/26/18 04/26/18 04/26/18 08:37 09:06 10:01 POC Glucose 69 L* 68 L* 170 H Current Inpatient Medications Current Inpatient Medications: Current Inpatient Medications Acetaminophen (Tylenol) 650 mg PO Q4H PRN PRN Reason: Headache or Minor Fever Stop: 05/25/18 21:33 Baclofen (Lioresal) 10 mg PO TID [facility] Stop: 05/23/18 08:59 Last Admin: 04/26/18 14:44 Dose: Not Given Bismuth Subsalicylate (Kaopectate) 15 ml PO PRN PRN PRN Reason: Loose Stool Stop: 05/23/18 01:37 Bupropion HCl (Wellbutrin-Sr) 150 mg PO QAM [facility] Stop: 05/23/18 08:59 Last Admin: 04/26/18 09:36 Dose: Not Given Buspirone HCl (Buspar) 5 mg PO TID PRN PRN Reason: Anxiety Stop: 05/23/18 08:59 Carvedilol (Coreg) 12.5 mg PO BID [facility] Stop: 05/23/18 08:59 Last Admin: 04/26/18 09:36 Dose: Not Given Cyclosporine (Sandimmune) 100 mg PO BID [facility] Stop: 05/23/18 08:59 Last Admin: 04/26/18 09:36 Dose: Not Given Dextrose (Dextrose 50%) 25 - 50 ml IV UD PRN; Protocol PRN Reason: Hypoglycemia Protocol Stop: 05/23/18 04:00 Gabapentin (Neurontin) 400 mg PO TID [facility] Stop: 05/23/18 08:59 Last Admin: 04/26/18 14:45 Dose: Not Given Glucagon (Glucagen) 1 mg IM UD PRN; Protocol PRN Reason: Hypoglycemia Protocol Stop: 05/23/18 04:00 Glucose (Glucose 40%) 15 - 30 gm PO UD PRN; Protocol PRN Reason: Hypoglycemia Protocol Stop: 05/23/18 04:00 Glucose (Dex4 Glucose) 4 - 8 tabs PO UD PRN; Protocol PRN Reason: Hypoglycemia Protocol Stop: 05/23/18 04:00 Hydroxyzine HCl (Vistaril) 50 mg PO HSZ PRN PRN Reason: Insomnia Stop: 05/23/18 01:37 Last Admin: 04/25/18 22:12 Dose: 50 mg Hydroxyzine HCl (Vistaril) 25 mg PO Q4H PRN PRN Reason: Anxiety Stop: 05/23/18 01:37 Insulin Aspart (Novolog Flexpen) 0 units SC ACHS [facility] Stop: 05/23/18 03:59 Last Admin: 04/26/18 17:19 Dose: Not Given Insulin Glargine (Lantus Solostar Pen) 22 units SC DAILY [facility]; Protocol Stop: 05/26/18 08:59 Last Admin: 04/26/18 13:19 Dose: Not Given Lactobacillus Acidophilus (Floranex) 4 tab PO QIDM [facility] Stop: 05/25/18 12:29 Last Admin: 04/26/18 17:43 Dose: Not Given Lorazepam (Ativan) 1 mg PO BID PRN PRN Reason: Anxiety Stop: 05/23/18 01:43 Last Admin: 04/25/18 22:12 Dose: 1 mg Magnesium Hydroxide (Milk Of Magnesia) 30 ml PO DAILY PRN PRN Reason: Heartburn Stop: 05/23/18 01:37 Miscellaneous (Carbohydrates For Hypoglycemia) 15 - 30 gm PO UD PRN PRN Reason: Hypoglycemia Treatment Stop: 05/23/18 04:00 Last Admin: 04/26/18 09:26 Dose: 13 gm Miscellaneous Information (Consult Glycemic Management Pharmacy) 1 ea N/A UD PRN PRN Reason: Consult Stop: 05/23/18 03:54 Mycophenolate Mofetil (Cellcept) 250 mg PO BID [facility] Stop: 05/23/18 08:59 Last Admin: 04/26/18 09:36 Dose: Not Given Sodium Bicarbonate (Sodium Bicarbonate) 650 mg PO TID [facility] Stop: 05/23/18 08:59 Last Admin: 04/26/18 14:45 Dose: Not Given Sodium Chloride ([place] Nasal) 1 - 2 sprays NA PRN PRN PRN Reason: Nasal Dryness/Congestion Stop: 05/23/18 01:37 Trazodone HCl (Desyrel) 50 mg PO HS [facility] Stop: 05/23/18 21:59 Last Admin: 04/25/18 21:12 Dose: 50 mg Post Discharge Appointments Primary Care Physician Name Of Family Doctor: "I don't have one" Psychiatrist Name of Psychiatrist: Rand Swain PA-C, [facility] Psychiatrist's Therapist Name of Therapist: Olivia Medical Billing Supervisor Name of Medical Billing Supervisor: Gissel Pa Phone Number for Medical Billing Supervisor: [phone] Home Health Services Home Health Services:: Physical Therapy and Home health agency Contact Information Discharge Discharge Address: [place] [address] CPT Code CPT Code 85026 [id number]
[2018-04-26] MEDS: TRAZODONE HCL 50 MG TAB PO SCH (21:45)
[2018-04-27] MEDS ORDERED: INSULIN GLARGINE SOLOSTAR 100 UNITS/ML 3 ML PEN SC SCH (09:00)
--- NOTE | 2018-04-27 09:13 | Discharge Summary ---
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 better assess her physical abilities and help determine the care and support necessary to address her physical needs outside of the hospital. 04/26 --reattempt engagement around discharge planning and capacity assessment by primary team in am. She would benefit from a trial of an atypical antipsychotic but likely doesn't meet criteria for forced meds at this time, currently on voluntary. It is difficult to tell how much of current presentation is personality driven vs cognitive. Doesn't appear psychotic at this time but quite labile and needs to continue MNPR. 04/27 -patient is not actively suicidal and admits that her suicidal statements on admission were manufactured in an attempt to avoid being discharged home. -She has refused psychotropic medications, and does not meet criteria for medications over objection, as she does not have a primary thought disorder and her behaviors are better explained by malingering and personality disorder, with attempts to manipulate others. (4) Hypertension: 04/23 - Confirm home meds and continue antihypertensives - Monitor BP 04/24 -BP today was 123/72 04/27 -Blood pressure within normal limits since admission. Continue home medications. (5) Acute UTI (urinary tract infection): 04/27 -patient was diagnosed with UTI in the emergency room and treated with a one-time dose of fosfomycin. She is likely to continue to develop urinary tract infections given her attempts to self inoculate, by inserting her fingers in her vagina as well as other foreign objects. (6) Generalized weakness: 04/23 - patient with UTI, treated with chrissie dose of fosfomycin - Maintain MNPR for MDRO with precautions - Assist the patient with ADL's as she is reporting feeling too weak to do so herself - Encourage patient to be OOB as much as possible 04/24 -PT/OT consults ordered to better assess her physical limitations and needs. 04/27 -Referrals were made for SNF but no accepting facility, and patient has now submitted a 72-hour notice requesting to withdraw from treatment which expires today. She does not meet criteria for a 302 involuntary commitment, and is stating her desire to return home. She does have a place to stay, with in-home services through [facility], as well as an outpatient piano case maker. She has demonstrated an ability to ambulate with walker or cane. (7) Diabetes: 04/23 - Consult [facility] hospitalists to assist in managing multiple medical problems 04/24 - Consult pending. 04/26--blood sugar 69 this am, case reviewed with Dr. Bhatia, no additional recs at this time. Post Discharge Appointments Primary Care Physician Name Of Family Doctor: "I don't have one" Psychiatrist Name of Psychiatrist: Rand Swain PA-C, [facility] Psychiatrist's Therapist Name of Therapist: Denies Viticulture Teacher Name of Viticulture Teacher: Gissel Pa Phone Number for Viticulture Teacher: [phone] Home Health Services Home Health Services:: Physical Therapy and Home health agency Smoking Cessation Counseling Tobacco Cessation Medication Prescribed at Discharge: Not Applicable/Non-Smoker Contact Information Discharge Discharge Address: [address] [place] [id number] Discharge Plan Discharge Items Patient Disposition: Home - Home Health Services Reason For Visit: PERSONALITY DISORDER, NOS Discharge Diagnosis: Malingering Borderline Personality Disorder Condition: Good Discharge Goals: Improve disease control, Specific goals and Therapeutic intervention Specific Goals: Improved behavioral control, treatment compliance Activity: Per 'Additional Instructions' section Non-emergency contact: Primary Care Provider, Psychiatrist and Bottom Liner Call non-emergency contact if: you have any medication questions and your symptoms worsen Diet: Carb Consistent or DM2 Addtl Provider Instructions: SPECIAL CARE INSTRUCTIONS: 1. Follow through with your scheduled aftercare appointments. If unable to keep an appointment, please call to reschedule. 2. Take your medication only as prescribed. Medication should not be changed or stopped without the approval of your doctor. In the event of worsening symptoms or concerns about side effects, contact your doctor immediately. 3. Utilize new healthy coping skills, anger management skills, and stress management skills learned during your hospitalization. Journal feelings and process them with a support person. Identify stressors or situations that may result in relapse, deterioration or inappropriate behaviors and develop a plan to deal with those issues. 4. If your coping skills are ineffective and you are in crisis, contact your outpatient providers for direction. If unable to reach your providers, please call the CAN HELP LINE AT or go to the closest Emergency Room. 5. Avoid alcohol and un-prescribed drugs. 6. You have been provided with the Mental Health Advance Directives Pamphlet for your review. AFTERCARE APPOINTMENTS: * Please call your insurance company prior to your scheduled appointment to confirm your aftercare providers are covered. Take your insurance information to your appointments. WHO TO CALL AND WHEN: � Medical Emergencies:� For questions or emergencies related to your hospital stay, please contact the Inpatient Behavioral Health Unit at [phone]. � A supportability engineer is on-call 14/10 for the Behavioral Health Unit for emergencies � At any time you feel your situation is an emergency, you may also call 911 immediately. Your Doctors Instructions noted above were prepared by provider Rosa Herndon MD. Prescriptions: Continue mycophenolate mofetil 250 mg Capsule 250 mg PO BID RF: 0 gabapentin 400 mg Capsule 400 mg PO TID RF: 0 carvedilol [Coreg] 12.5 mg tablet 12.5 mg PO BID RF: 0 baclofen 10 mg tablet 10 mg PO TID RF: 0 insulin aspart U-100 [Novolog Flexpen U-100 Insulin] 100 unit/mL insulin pen subcut TIDM RF: 0 cyclosporine modified 50 mg capsule 100 mg PO BID RF: 0 insulin glargine [Basaglar KwikPen U-100 Insulin] 100 unit/mL (3 mL) insulin pen 3 unit subcut QAM RF: 0 trazodone 50 mg Tablet 50 mg PO HS RF: 0 lorazepam [Ativan] 1 mg Tablet 1 mg PO BID PRN (Reason: Anxiety) RF: 0 bupropion HCl [Wellbutrin SR] 150 mg Tablet Sustained-Release 12 Hr 150 mg PO QAM RF: 0 loperamide [Imodium A-D] 2 mg Capsule 2 mg PO DIRECTED PRN (Reason: Diarrhea) RF: 0 buspirone 5 mg Tablet 5 mg PO TID PRN (Reason: prn) RF: 0 sodium bicarbonate 650 mg Tablet 650 mg PO TID RF: 0 Stand-Alone Forms: [facility] Discharge Orders: Discharge Order (Routine); Ordered 04/27/18 Ordered By: Rosa Herndon Admission Data Admit Date/Time: 04/23/18 00:52 Attending Provider: Rosa Herndon Admit Provider: Esperanza Spann Primary Care Provider: PCP,NO Other Providers: Wali Feliz Service: Psychiatry Other Interventions: Discharge Summary Assessment (RN) Last Done: 04/27/18 09:19 PSY Interdisciplinary Discharge Planning Last Done: 04/27/18 10:10 Pending Studies at Discharge: No
[2018-04-27] MEDS: INSULIN ASPART 100 UNITS/ML 3 ML PEN SC SCH (09:16)
[2018-04-27] MEDS: MYCOPHENOLATE MOFETIL 250 MG CAP PO SCH (09:18)
[2018-04-27] MEDS: CARVEDILOL 12.5 MG TAB PO SCH (09:18)
[2018-04-27] MEDS: LACTOBACILLUS ACIDOPHILUS (FLORANEX) TAB PO SCH ×2 (09:18→10:28)
[2018-04-27] MEDS: BACLOFEN 10 MG TAB PO SCH (09:19)
[2018-04-27] MEDS: BuPROPion SR 150 MG TABCR PO SCH ×2 (09:20→10:31)
[2018-04-27] MEDS: SODIUM BICARBONATE 650 MG TAB PO SCH ×2 (09:20→10:30)
[2018-04-27] MEDS: cycloSPORINE 100 MG CAP PO SCH (09:20)
[2018-04-27] MEDS: GABAPENTIN 400 MG CAP PO SCH ×2 (09:20→10:29)
--- NOTE | 2018-04-27 09:33 | Pharmacy Report ---
Pharmacy Glycemic Sign Off Nt - Date of Service April 27, 2018 - Assessment & Plan ASSESSMENT: * Patient is refusing all BSG checks and all insulin doses * Will decrease Lantus further in the event that the patient is willing to take Lantus but is still unwilling to have BSG's checked. This is to prevent hypoglycemia that may go undetected * Per Dr. Herndon - patient is being discharged PLAN FOR INPATIENT GLYCEMIC CONTROL: * Decrease basal insulin with Lantus 14 units SQ qAM (of note - patient has refused all basal insulin yesterday and today thus far) * Continue NovoLog per scale ACHS/Q6hrs while NPO (of note - last Novolog the patient accepted was 2/2 PM) * Goal range = 110 140 mg/dl * CF = 20 mg/dl/unit * CR = 1 unit for ever 8 g CHO consumed Pharmacy is signing off of glycemic consult and will no longer be making adjustments to inpatient regimen. Please feel free to re-consult if needed. Thank you.
[2018-04-27] MEDS ORDERED: DESTROY THIS MEDICATION ONE (09:59)
--- NOTE | 2018-04-29 08:10 | Communication Note ---
Date of Service: April 29, [address] Salas as patient has presented to the emergency room after being discharged from the behavioral health unit 2 days ago. Reviewed ER record and discussed case with him. Patient presented to the ER with EMS and state police after calling can help to report that she was not caring for herself at home, lying in her urine, had not eaten or drank because she was too weak to stand up. She reportedly told can help that she had taken a double dose of her antirejection medication, but denied this to ER staff, and stated she had taken her medication twice a day as prescribed. She clearly stated she did not want to harm herself or others, and denied symptoms of depression. She did not wish to be admitted to a psychiatric facility, and did not want to go to a halfway, but also reported she was unable to care for herself at home. She said she wanted PT and home health to provide for her needs at home. There was no indication for medical admission. Discussed her psychiatric diagnoses (malingering and personality disorder) and that I do not believe that her inability to care for herself is a direct result of a psychiatric disorder, and that she is therefore inappropriate for 302 involuntary commitment. While she was on our unit it was discovered that she has multiple criminal charges with a court date today, raising a concern for secondary gain and malingering. She also demonstrated an inability to ambulate and eat, although she at times refused to do so, and was aware of her medications and the recommended outpatient treatment, which she agreed to continue upon discharge from the behavioral health unit. As her risk factors are not able to be mitigated by an inpatient psychiatric hospitalization, I do not recommend that. Given her pattern of repeatedly presenting to the hospital and her self-reported inability to provide for her basic needs independently at home, recommend contacting the office of aging and requesting emergency guardianship and appropriate nursing facility replacement.
== END 2018-04-27 10:55 | disposition home health service (06) ==
LOC: ED 11:52 → 3S 04-23 00:52

== ENCOUNTER 2018-07-05 13:34 | Inpatient (IN) ==
[2018-07-05] MEDS ORDERED: SODIUM CHLORIDE 0.9% 1000ML 2,000 ML IV ONE (14:12)
[2018-07-05] MEDS ORDERED: ERTAPENEM SODIUM 1,000 MG in SYRINGE 0 ML IV STA (14:18)
[2018-07-05] MEDS ORDERED: ERTAPENEM SODIUM 1,000 MG in SODIUM CHLORIDE 0.9% 50 ML IV SCH (14:18)
[2018-07-05 14:57] LABS: Basophils # (auto) 0.03 K/uL (0-0.2); Basophils % (auto) 0.6 %; Eosinophils # (auto) 0.17 K/uL (0-0.5); Eosinophils % (auto) 3.2 %; Hematocrit (blood only) 34.8 % (37-47); Hemoglobin 11.6 g/dL (12.0-16.0); Immature Granulocytes # (auto) 0.02 K/uL (0.00-0.02); Immature Granulocytes % (auto) 0.4 %; Lymphocytes # (auto) 1.93 K/uL (1.2-3.4); Lymphocytes % (auto) 36.6 %; Mean Corpuscular Hgb Conc 33.3 g/dL (32-36); Mean Corpuscular Volume 89.2 fL (80-100); Mean Platelet Volume 10.2 fL (7.4-10.4); Monocytes # (auto) 0.82 K/uL (0.11-0.59); Monocytes % (auto) 15.6 %; Neutrophils % (auto) 43.6 %; Platelet Count 223 K/uL (130-400); RDW Coefficient of Variation 13.8 % (11.5-14.5); RDW Standard Deviation 44.3 fL (36.4-46.3); White Blood Count 5.27 K/uL (4.8-10.8)
--- NOTE | 2018-07-05 15:06 | Emergency Department Note ---
Entered by Deep Ortiz acting as a scribe for Michael Corona MD History of Present Illness General Chief complaint: Illness Stated complaint: sob Time Seen by Provider: 07/05/18 14:04 Source: RN notes reviewed and police History of Present Illness Provider complaint: Altered mental status Onset (ago): day(s) (Past couple days) Location: head Radiation: non-radiation Pain Consistency: + constant Relieved By: + none Exacerbated By: + none Associated symptoms: + loss of appetite and + other (Lethargic) The patient is a 58 year old female who presents to the Emergency Room with complaints of constant altered mental status over the past couple days, per the nursing note. The notes also mention that the patient has had increased lethargy, and decreased food and fluid intake. Today all she has had was milk, juice and half a banana. The patient has also not been mobile over this time and is wearing a diaper because she will not get up to use the bathroom. The officers with her report that there has not been any recent traumas or falls. She has been here multiple times recently, with the last trip for hypertension that resolved by the time she arrived at the hospital. She is currently being treated for a UTI with Macrobid, however she had a urine culture done 5 days ago that grew out E.Coli (ESBL) that had intermediate resistance to Macrobid. Her BSG taken en route by EMS was 148. Home Medications Home Medications Medication Instructions Recorded Confirmed Type [place] Instant Breakfast 1 can PO TIDM PRN 07/05/18 07/05/18 History aripiprazole [Abilify] 5 mg PO DAILY 07/05/18 07/05/18 History baclofen 10 mg PO TID 07/05/18 07/05/18 History buspirone 10 mg PO TID 07/05/18 07/05/18 History carvedilol [Coreg] 12.5 mg PO DAILY 07/05/18 07/05/18 History citalopram [Celexa] 10 mg PO DAILY 07/05/18 07/05/18 History clonazepam 1 mg PO TID 07/05/18 07/05/18 History clonidine HCl 0.05 mg PO HS 07/05/18 07/05/18 History cyclosporine 100 mg PO DAILY 07/05/18 07/05/18 History ferrous sulfate 325 mg PO BID 07/05/18 07/05/18 History insulin NPH isoph U-100 human 10 unit SUBCUT DIRECTED 07/05/18 07/05/18 History [Novolin N NPH U-100 Insulin] lisinopril 10 mg PO DAILY 07/05/18 07/05/18 History mycophenolate mofetil [CellCept] 250 mg PO BID 07/05/18 07/05/18 History [id number] 1 applic TOPICAL BID PRN 07/05/18 07/05/18 History [Triple Antibiotic] nitrofurantoin monohyd/m-cryst 100 mg PO BID 07/05/18 07/05/18 History [Macrobid] omeprazole 20 mg PO DAILY 07/05/18 07/05/18 History simvastatin 10 mg PO DAILY 07/05/18 07/05/18 History trazodone 100 mg PO HS 07/05/18 07/05/18 History Allergies Allergy/AdvReac Type Severity Reaction Status Date / Time Penicillins Allergy Mild ITCHY, Verified 07/05/18 15:14 ANXIETY glipizide Allergy Unknown Unknown Verified 07/05/18 15:14 loperamide Allergy Unknown Unknown Verified 07/05/18 15:14 metformin Allergy Unknown Unknown Verified 07/05/18 15:14 sitagliptin [From Januvia] Allergy Unknown ON Verified 07/05/18 15:14 LIST-CENTRE.PCMEMR vancomycin Allergy Unknown Unknown Verified 07/05/18 15:14 ziprasidone Allergy Unknown itching Verified 07/05/18 15:14 acetaminophen [From Tylenol] Allergy Unknown Verified 07/05/18 15:14 Past Med/Surg History Social History Preferred Language: Armenian Beliefs That Will Affect Care: None Current Living Situation: Other current occupational status: other current occupation: [employer] Feels Safe at Home: Yes Smoking Status: Unknown if ever smoked Review of Systems Other (Unobtainable secondary to mental state) Physical Exam Vital Signs Vital Signs - 24 hr 07/05/18 13:38 07/05/18 13:52 07/05/18 13:53 Temperature 36.4 C L Temperature Source Oral Sepsis Recent Fever Within 48 Hours No Sepsis Action Taken by Nursing No Action Required Pulse Rate 55 L 62 49 L Pulse Rate from SpO2 Sensor 54 L 51 L Respiratory Rate 16 16 17 Respiratory Effort / Characteristics Non-Labored Respiratory Depth Normal Blood Pressure 147/99 H 147/99 H Blood Pressure Mean 115 115 Pulse Oximetry 99 100 96 Oxygen Delivery Method Room Air 07/05/18 14:00 07/05/18 14:01 07/05/18 14:10 Temperature Temperature Source Sepsis Recent Fever Within 48 Hours Sepsis Action Taken by Nursing Pulse Rate 59 L 56 L 64 Pulse Rate from SpO2 Sensor 54 L 56 L Respiratory Rate 15 15 17 Respiratory Effort / Characteristics Respiratory Depth Blood Pressure 134/64 Blood Pressure Mean 87 Pulse Oximetry 97 98 Oxygen Delivery Method 07/05/18 14:20 07/05/18 14:23 07/05/18 14:30 Temperature Temperature Source Sepsis Recent Fever Within 48 Hours Sepsis Action Taken by Nursing Pulse Rate 51 L 62 Pulse Rate from SpO2 Sensor 50 L Respiratory Rate 18 16 Respiratory Effort / Characteristics Respiratory Depth Blood Pressure Blood Pressure Mean Pulse Oximetry 99 100 Oxygen Delivery Method Room Air 07/05/18 14:40 07/05/18 14:41 07/05/18 14:45 Temperature Temperature Source Sepsis Recent Fever Within 48 Hours Sepsis Action Taken by Nursing Pulse Rate 64 59 L 63 Pulse Rate from SpO2 Sensor 61 58 L 63 Respiratory Rate 14 14 16 Respiratory Effort / Characteristics Respiratory Depth Blood Pressure 172/92 H 194/111 H Blood Pressure Mean 118 138 Pulse Oximetry 99 100 Oxygen Delivery Method 07/05/18 14:46 07/05/18 14:50 07/05/18 15:00 Temperature Temperature Source Sepsis Recent Fever Within 48 Hours Sepsis Action Taken by Nursing Pulse Rate 61 68 69 Pulse Rate from SpO2 Sensor 63 69 68 Respiratory Rate 14 17 17 Respiratory Effort / Characteristics Respiratory Depth Blood Pressure 170/102 H Blood Pressure Mean 124 Pulse Oximetry 100 100 99 Oxygen Delivery Method 07/05/18 15:10 07/05/18 15:15 07/05/18 15:20 Temperature Temperature Source Sepsis Recent Fever Within 48 Hours Sepsis Action Taken by Nursing Pulse Rate 79 72 67 Pulse Rate from SpO2 Sensor 65 70 67 Respiratory Rate 19 18 17 Respiratory Effort / Characteristics Respiratory Depth Blood Pressure 186/112 H Blood Pressure Mean 136 Pulse Oximetry 99 100 100 Oxygen Delivery Method 07/05/18 15:30 07/05/18 15:45 07/05/18 15:46 Temperature Temperature Source Sepsis Recent Fever Within 48 Hours Sepsis Action Taken by Nursing Pulse Rate 67 64 Pulse Rate from SpO2 Sensor Respiratory Rate 18 17 Respiratory Effort / Characteristics Respiratory Depth Blood Pressure 176/136 H 191/86 H Blood Pressure Mean 149 121 Pulse Oximetry Oxygen Delivery Method 07/05/18 15:50 07/05/18 15:52 07/05/18 16:00 Temperature Temperature Source Sepsis Recent Fever Within 48 Hours Sepsis Action Taken by Nursing Pulse Rate 64 65 65 Pulse Rate from SpO2 Sensor 64 64 64 Respiratory Rate 19 16 19 Respiratory Effort / Characteristics Respiratory Depth Blood Pressure 200/81 H Blood Pressure Mean 120 Pulse Oximetry 99 98 100 Oxygen Delivery Method 07/05/18 16:01 07/05/18 16:02 07/05/18 16:10 Temperature Temperature Source Sepsis Recent Fever Within 48 Hours Sepsis Action Taken by Nursing Pulse Rate 66 63 63 Pulse Rate from SpO2 Sensor 63 64 Respiratory Rate 16 16 16 Respiratory Effort / Characteristics Respiratory Depth Blood Pressure 179/79 H Blood Pressure Mean 112 Pulse Oximetry 98 100 Oxygen Delivery Method 07/05/18 16:16 07/05/18 16:20 07/05/18 16:30 Temperature Temperature Source Sepsis Recent Fever Within 48 Hours Sepsis Action Taken by Nursing Pulse Rate 67 67 73 Pulse Rate from SpO2 Sensor Respiratory Rate 16 14 17 Respiratory Effort / Characteristics Respiratory Depth Blood Pressure 178/68 H Blood Pressure Mean 104 Pulse Oximetry Oxygen Delivery Method 07/05/18 16:31 Temperature Temperature Source Sepsis Recent Fever Within 48 Hours Sepsis Action Taken by Nursing Pulse Rate 74 Pulse Rate from SpO2 Sensor Respiratory Rate 14 Respiratory Effort / Characteristics Respiratory Depth Blood Pressure 186/72 H Blood Pressure Mean 110 Pulse Oximetry Oxygen Delivery Method GENERAL: Patient is in no acute distress. HEENT: No acute trauma, normocephalic atraumatic, mucous membranes are markedly dry, no nasal congestion, no scleral icterus. Pupils are equal, round and reactive to light. NECK: No stridor, no adenopathy, no meningismus, trachea is midline. LUNGS: Clear to auscultation bilaterally, no wheeze, no rhonchi, breath sounds equal. HEART: Without murmurs gallops or rubs, regular rate and rhythm. ABDOMEN: Soft, mildly diffusely tender, bowel sounds positive, no hernias, no peritonitis. EXTREMITIES: No cyanosis or edema, full range of motion of all the joints without pain or difficulty, no signs for acute trauma. NEUROLOGIC: Somnolent, responds to painful stimuli in all 4 extremities. Moves all 4 extremities. SKIN: No rash, no jaundice, no diaphoresis. Course 1404: The patient was evaluated in room A11B, and a complete history and physical examination were performed. 1559: I spoke to Dr. Jolly - [facility] Hospitalist about the patient's case and he is going to accept her for further evaluation. 1603: I updated the patient and guards on the results and plan for treatment. Administered Medications Discontinued Medications Hydralazine HCl (Hydralazine Hcl) 10 mg IV NOW STA Stop: 07/05/18 15:42 Last Admin: 07/05/18 15:47 Dose: 10 mg Documented by: [id number] Sodium Chloride (Nss 1000ml) 2,000 mls @ 999 mls/hr IV .Q2H1M ONE Stop: 07/05/18 16:12 Last Infusion: 07/05/18 15:50 Dose: 0 mls/hr Documented by: [id number] Admin: 07/05/18 14:42 Dose: 999 mls/hr Documented by: [id number] Ertapenem 1,000 mg/ Sodium (Chloride) 60 mls @ 100 mls/hr IV TODAY@1418 NICK Stop: 07/05/18 15:30 Last Infusion: 07/05/18 15:50 Dose: 0 mls/hr Documented by: [id number] Admin: 07/05/18 15:11 Dose: 100 mls/hr Documented by: [id number] Medical Decision Making Differential Diagnosis Differential Diagnosis: Dehydration, Medication reaction, Pneumonia, Sepsis, Intracranial bleeding, pyelonephritis, Cellulitis, Electrolyte imbalance, Renal failure, Liver failure, and Thyroid disorder, amongst others. Medical Records Attestation: I reviewed the patient's medical records. Home Medications Current Medication List: was personally reviewed by me Laboratory Data Attestation: I reviewed the patient's lab results. Result diagrams: 07/05/18 14:31 07/05/18 14:31 Lab Results 07/05/18 07/05/18 07/05/18 Range/Units 14: 14:31 14:31 WBC (4.8-10.8) K/uL RBC (4.2-5.4) M/uL Hgb (12.0-16.0) g/dL Hct (37-47) % MCV (80-100) fL MCH (25-34) pg MCHC (32-36) g/dL RDW Std Deviation (36.4-46.3) fL RDW Coeff of Jaspal (11.5-14.5) % Plt Count (130-400) K/uL MPV (7.4-10.4) fL Immature Gran % (Auto) % Neut % (Auto) % Lymph % (Auto) % [place] % (Auto) % Eos % (Auto) % Baso % (Auto) % Immature Gran # (Auto) (0.00-0.02) K/uL Neut # (Auto) (1.4-6.5) K/uL Lymph # (Auto) (1.2-3.4) K/uL [place] # (Auto) (0.11-0.59) K/uL Eos # (Auto) (0-0.5) K/uL Baso # (Auto) (0-0.2) K/uL PT (9.0-12.0) Seconds INR (0.9-1.1) APTT (21.0-31.0) Seconds PTT Ratio VBG pH (7.36-7.41) VBG pCO2 (38-50) mmHg VBG pO2 mmHg VBG HCO3 mmol/L VBG O2 Saturation % VBG Base Excess mEq/L Barometric Pressure mm/Hg Sodium (136-145) mmol/L Potassium (3.5-5.1) mmol/L Chloride (98-107) mmol/L Carbon Dioxide (21-32) mmol/L Anion Gap (3-11) BUN (7-18) mg/dl Creatinine (0.6-1.2) mg/dl Est Cr Clr Drug Dosing ml/min Est GFR ( Amer) Est GFR (Non-Af Amer) BUN/Creatinine Ratio (10-20) Glucose (70-99) mg/dl Lactate (0.4-2.0) mmol/L Calcium (8.5-10.1) mg/dl Magnesium (1.8-2.4) mg/dl Total Bilirubin (0.2-1) mg/dl AST (15-37) U/L ALT (12-78) U/L Alkaline Phosphatase (45-117) U/L Ammonia 17.7 (11-32) umol/L Troponin I (0-0.045) ng/ml Total Protein (6.4-8.2) gm/dl Albumin (3.4-5.0) gm/dl Globulin (2.5-4.0) gm/dl Albumin/Globulin Ratio (0.9-2) Procalcitonin < 0.05 (0-0.5) ng/ml TSH (0.300-4.500) uIu/ml Urine Color Yellow Urine Appearance Clear (Clear) Urine pH 5.0 (4.5-7.5) Ur Specific [place] 1.017 (1.000-1.030) Urine Protein Negative (Negative) Urine Glucose (UA) Negative (Negative) Urine Ketones Negative (Negative) Urine Blood Negative (Negative) Urine Nitrite Negative (Negative) Urine Bilirubin Negative (Negative) Urine Urobilinogen Negative (Negative) Ur Leukocyte Esterase 2+ H (Negative) Urine WBC (Auto) >30 H (0-5) /hpf Urine RBC (Auto) 0-4 (0-4) /hpf U Hyaline Cast (Auto) 1-5 (0-5) /lpf U Epithel Cells (Auto) 0-5 (0-5) /lpf Urine Bacteria (Auto) 1+ H (Negative) 07/05/18 07/05/18 07/05/18 Range/Units 14:31 14:31 14:31 WBC 5.27 (4.8-10.8) K/uL RBC 3.90 L (4.2-5.4) M/uL Hgb 11.6 L (12.0-16.0) g/dL Hct 34.8 L (37-47) % MCV 89.2 (80-100) fL MCH 29.7 (25-34) pg MCHC 33.3 (32-36) g/dL RDW Std Deviation 44.3 (36.4-46.3) fL RDW Coeff of Jaspal 13.8 (11.5-14.5) % Plt Count 223 (130-400) K/uL MPV 10.2 (7.4-10.4) fL Immature Gran % (Auto) 0.4 % Neut % (Auto) 43.6 % Lymph % (Auto) 36.6 % [place] % (Auto) 15.6 % Eos % (Auto) 3.2 % Baso % (Auto) 0.6 % Immature Gran # (Auto) 0.02 (0.00-0.02) K/uL Neut # (Auto) 2.30 (1.4-6.5) K/uL Lymph # (Auto) 1.93 (1.2-3.4) K/uL [place] # (Auto) 0.82 H (0.11-0.59) K/uL Eos # (Auto) 0.17 (0-0.5) K/uL Baso # (Auto) 0.03 (0-0.2) K/uL PT 10.3 (9.0-12.0) Seconds INR 1.0 (0.9-1.1) APTT 26.7 (21.0-31.0) Seconds PTT Ratio 1.0 VBG pH (7.36-7.41) VBG pCO2 (38-50) mmHg VBG pO2 mmHg VBG HCO3 mmol/L VBG O2 Saturation % VBG Base Excess mEq/L Barometric Pressure mm/Hg Sodium 140 (136-145) mmol/L Potassium 4.2 (3.5-5.1) mmol/L Chloride 110 H (98-107) mmol/L Carbon Dioxide 23 (21-32) mmol/L Anion Gap 7.0 (3-11) BUN 49 H (7-18) mg/dl Creatinine 1.73 H (0.6-1.2) mg/dl Est Cr Clr Drug Dosing 26.4 ml/min Est GFR ( Amer) 36.8 Est GFR (Non-Af Amer) 31.8 BUN/Creatinine Ratio 28.5 H (10-20) Glucose 163 H (70-99) mg/dl Lactate (0.4-2.0) mmol/L Calcium 9.2 (8.5-10.1) mg/dl Magnesium 2.2 (1.8-2.4) mg/dl Total Bilirubin 0.2 (0.2-1) mg/dl AST 12 L (15-37) U/L ALT 21 (12-78) U/L Alkaline Phosphatase 69 (45-117) U/L Ammonia (11-32) umol/L Troponin I 0.017 (0-0.045) ng/ml Total Protein 7.4 (6.4-8.2) gm/dl Albumin 3.3 L (3.4-5.0) gm/dl Globulin 4.1 H (2.5-4.0) gm/dl Albumin/Globulin Ratio 0.8 L (0.9-2) Procalcitonin (0-0.5) ng/ml TSH 0.790 (0.300-4.500) uIu/ml Urine Color Urine Appearance (Clear) Urine pH (4.5-7.5) Ur Specific [place] (1.000-1.030) Urine Protein (Negative) Urine Glucose (UA) (Negative) Urine Ketones (Negative) Urine Blood (Negative) Urine Nitrite (Negative) Urine Bilirubin (Negative) Urine Urobilinogen (Negative) Ur Leukocyte Esterase (Negative) Urine WBC (Auto) (0-5) /hpf Urine RBC (Auto) (0-4) /hpf U Hyaline Cast (Auto) (0-5) /lpf U Epithel Cells (Auto) (0-5) /lpf Urine Bacteria (Auto) (Negative) 07/05/18 07/05/18 07/05/18 Range/Units 14:31 14:31 14:52 WBC (4.8-10.8) K/uL RBC (4.2-5.4) M/uL Hgb (12.0-16.0) g/dL Hct (37-47) % MCV (80-100) fL MCH (25-34) pg MCHC (32-36) g/dL RDW Std Deviation (36.4-46.3) fL RDW Coeff of Jaspal (11.5-14.5) % Plt Count (130-400) K/uL MPV (7.4-10.4) fL Immature Gran % (Auto) % Neut % (Auto) % Lymph % (Auto) % [place] % (Auto) % Eos % (Auto) % Baso % (Auto) % Immature Gran # (Auto) (0.00-0.02) K/uL Neut # (Auto) (1.4-6.5) K/uL Lymph # (Auto) (1.2-3.4) K/uL [place] # (Auto) (0.11-0.59) K/uL Eos # (Auto) (0-0.5) K/uL Baso # (Auto) (0-0.2) K/uL PT (9.0-12.0) Seconds INR (0.9-1.1) APTT (21.0-31.0) Seconds PTT Ratio VBG pH 7.34 L (7.36-7.41) VBG pCO2 45 (38-50) mmHg VBG pO2 25 mmHg VBG HCO3 24 mmol/L VBG O2 Saturation < 60.0 % VBG Base Excess -2.3 mEq/L Barometric Pressure 724.1 mm/Hg Sodium (136-145) mmol/L Potassium (3.5-5.1) mmol/L Chloride (98-107) mmol/L Carbon Dioxide (21-32) mmol/L Anion Gap (3-11) BUN (7-18) mg/dl Creatinine (0.6-1.2) mg/dl Est Cr Clr Drug Dosing ml/min Est GFR ( Amer) Est GFR (Non-Af Amer) BUN/Creatinine Ratio (10-20) Glucose (70-99) mg/dl Lactate 1.0 (0.4-2.0) mmol/L Calcium (8.5-10.1) mg/dl Magnesium (1.8-2.4) mg/dl Total Bilirubin (0.2-1) mg/dl AST (15-37) U/L ALT (12-78) U/L Alkaline Phosphatase (45-117) U/L Ammonia (11-32) umol/L Troponin I Cancelled (0-0.045) ng/ml Total Protein (6.4-8.2) gm/dl Albumin (3.4-5.0) gm/dl Globulin (2.5-4.0) gm/dl Albumin/Globulin Ratio (0.9-2) Procalcitonin (0-0.5) ng/ml TSH (0.300-4.500) uIu/ml Urine Color Urine Appearance (Clear) Urine pH (4.5-7.5) Ur Specific [place] (1.000-1.030) Urine Protein (Negative) Urine Glucose (UA) (Negative) Urine Ketones (Negative) Urine Blood (Negative) Urine Nitrite (Negative) Urine Bilirubin (Negative) Urine Urobilinogen (Negative) Ur Leukocyte Esterase (Negative) Urine WBC (Auto) (0-5) /hpf Urine RBC (Auto) (0-4) /hpf U Hyaline Cast (Auto) (0-5) /lpf U Epithel Cells (Auto) (0-5) /lpf Urine Bacteria (Auto) (Negative) Imaging Data Radiologist's Impression: Radiology results as stated below per my review and the radiologist's interpretation: XR chest 1V portable CLINICAL HISTORY: Sepsis dyspnea COMPARISON STUDY: 05/18/2018 FINDINGS: The bones soft tissues and hemidiaphragms are normal. The cardiomediastinal silhouette is normal. The lungs are clear. The pulmonary vasculature is normal. IMPRESSION: Negative chest. The above report was generated using voice recognition software. It may contain grammatical, syntax or spelling errors. Electronically signed by: Clif Motley M.D. 07/05/2018 3:[address] head/brain wo con CT DOSE: HISTORY: confusion TECHNIQUE: Multiaxial CT images of the head were performed without the use of intravenous contrast. A dose lowering technique was utilized adhering to the principles of ALARA. Comparison: None. Findings: The paranasal sinuses and mastoid air cells are clear. The calvarium and skull base are intact. The ventricles and sulci are within normal limits. There is no mass, hematoma, midline shift, or acute infarct. Impression: No acute intracranial abnormality. The above report was generated using voice recognition software. It may contain grammatical, syntax or spelling errors. Electronically signed by: Clif Motley M.D. 07/05/2018 3:[address] abd pelvis wo con CT DOSE: 1089.72 mGy.cm HISTORY: Pain. Nausea. confusion, poss urinary obstruc/infec TECHNIQUE: Multiaxial CT images of the abdomen and pelvis were performed without contrast. A dose lowering technique was utilized adhering to the principles of ALARA. COMPARISON STUDY: 05/18/2018 FINDINGS: Lung bases are clear. Atrophy of the [place] kidneys. Fatty Replacement of the pancreas. Configuration of liver and spleen are unremarkable. Nonobstructive bowel pattern. Pelvic left renal transplant showing no evidence for obstructive change. Bladder is midline. No free fluid within the pelvic cul-de-sac. Scattered colonic diverticuli with no evidence for diverticulitis. IMPRESSION: 1. No acute abnormality of the abdomen or pelvis. 2. Chronic and postoperative changes as discussed. The above report was generated using voice recognition software. It may contain grammatical, syntax or spelling errors. Electronically signed by: Clif Motley M.D. 07/05/2018 3:51 PM ECG Data Attestation: I personally reviewed and interpreted this ECG as follows: Indication: altered mental status Rate (beats per minute): 59 Rhythm: sinus bradycardia Findings: + LBBB; no PAC and no PVC Comparison ECG Date: from (05/18/18) Change: no significant change Blood Pressure Blood Pressure Findings: Elevated blood pressure Blood Pressure Disposition: further management by hospitalist MDM Narrative There is no leukocytosis. No concerning anemia. No coagulopathy. VBG showed a pH of 7.34. No CO2 elevation, no hypoxia. Renal panel testing does show some renal insufficiency, this appears baseline looking back at previous testing. La ctic acid level was not elevated making sepsis less likely. There was no hepatitis. Ammonia level was not elevated. Pro-calcitonin level was not elevated. The patient appeared to be in a euthyroid state. Urinalysis did suggest infection. Blood cultures are pending. Chest x-ray did not show pn eumonia or CHF. There was no mediastinal widening. Brain CT showed no acute bleed or mass-effect. Abdominal CT did not show any obvious obstruction, there is no free air, there was no hydronephrosis. EKG showed a sinus rhythm, no acute ischemia. Cardiac enzyme testing x1 was not consistent with acute cardiac injury. The patient presents dehydrated, somnolent and weak. She was found to have an ESBL urinary tract infection which showed intermediate resistance to Macrobid which she is currently taking. Patient received IV saline 2 L. She was given one thousand milligrams of ertapenem IV. She was given IV hydralazine for her elevated blood pressure. The patient is in need of a hospital stay. She is dehydrated, somewhat malnourished. She has failed treatment as an outpatient for a resistant UTI. I do not think it is safe for her to be discharged [facility] to [facility]. I spoke to the patient and guards, I spoke with case management. The on-call hospitalist was consulted. Impression & Plan Change in mental status, Weakness, Dehydration, Failure of outpatient treatment, UTI (urinary tract infection), Hypertension Discharge Plan Visit Data Chief Complaint: Illness Stated Complaint: sob ED Provider: Michael Corona Discharge Problem: Change in mental status, Weakness, Dehydration, Failure of outpatient treatment, UTI (urinary tract infection), Hypertension Patient Disposition: Being Evaluated by Hospitalist Forms Stand Alone Forms: My [facility] Prescriptions Prescriptions: No Action clonidine HCl 0.1 mg Tablet 0.05 mg PO HS RF: 0 Triple Antibiotic 3.5mg-400 unit- 5,000 unit/gram Ointment 1 applic TOPICAL BID PRN (Reason: Skin Irritation) RF: 0 carvedilol [Coreg] 12.5 mg Tablet 12.5 mg PO DAILY RF: 0 citalopram [Celexa] 10 mg Tablet 10 mg PO DAILY RF: 0 mycophenolate mofetil [CellCept] 250 mg Capsule 250 mg PO BID RF: 0 simvastatin 10 mg Tablet 10 mg PO DAILY RF: 0 clonazepam 1 mg Tablet 1 mg PO TID RF: 0 trazodone 100 mg Tablet 100 mg PO HS RF: 0 baclofen 10 mg Tablet 10 mg PO TID RF: 0 ferrous sulfate 325 mg (65 mg iron) Tablet 325 mg PO BID RF: 0 buspirone 10 mg Tablet 10 mg PO TID RF: 0 lisinopril 10 mg Tablet 10 mg PO DAILY RF: 0 Novolin N NPH U-100 Insulin 100 unit/mL Suspension 10 unit SUBCUT DIRECTED RF: 0 omeprazole 20 mg Capsule,Delayed Release(Dr/Ec) 20 mg PO DAILY RF: 0 cyclosporine 100 mg Capsule 100 mg PO DAILY RF: 0 aripiprazole [Abilify] 5 mg Tablet 5 mg PO DAILY RF: 0 nitrofurantoin monohyd/m-cryst [Macrobid] 100 mg Capsule 100 mg PO BID RF: 0 [place] Instant Breakfast 1 can PO TIDM PRN (Reason: WHEN NEEDED) RF: 0 Referrals Referrals: [facility] [Primary Care Provider] - Discharge Problem: Change in mental status Qualifiers: Altered mental status type: unspecified Qualified Code(s): R41.82 - Altered mental status, unspecified UTI (urinary tract infection) Qualifiers: Urinary tract infection type: site unspecified Hematuria presence: without hematuria Qualified Code(s): N39.0 - Urinary tract infection, site not specified Hypertension Qualifiers: Hypertension type: unspecified Qualified Code(s): I10 - Essential (primary) hypertension The scribe's documentation has been prepared under my direction and personally reviewed by me in its entirety. I confirm that the note above accurately reflects all work, treatment, procedures, and medical decision making performed by me.
[2018-07-05 15:07] LABS: Base Excess VBG -2.3 mEq/L; HCO3 VBG 24 mmol/L; PCO2 VBG 45 mmHg (38-50); PO2 VBG 25 mmHg; pH VBG 7.34 (7.36-7.41)
[2018-07-05 15:08] LABS: Oxygen Saturation VBG < 60.0 %
[2018-07-05 15:09] LABS: Partial Thromboplastin Time 26.7 Seconds (21.0-31.0); Prothrombin Time 10.3 Seconds (9.0-12.0)
[2018-07-05 15:15] LABS: Appearance Urine Clear (Clear); Bacteria Urine Automated 1+ (Negative); Bilirubin Urine Negative (Negative); Blood Urine Negative (Negative); Color Urine Yellow; Epithelial Cell Urine Auto 0-5 /lpf (0-5); Glucose Urine UA Negative (Negative); Ketones Urine Negative (Negative); Leukocyte Esterase Urine 2+ (Negative); Nitrite Urine Negative (Negative); Protein Urine Negative (Negative); RBC Urine Automated 0-4 /hpf (0-4); Specific Gravity Urine 1.017 (1.000-1.030); Urobilinogen Urine Negative (Negative); WBC Urine Automated >30 /hpf (0-5)
[2018-07-05 15:16] LABS: Albumin Level 3.3 gm/dl (3.4-5.0); BUN Creatinine Ratio 28.5 (10-20); Calcium 9.2 mg/dl (8.5-10.1); Creatinine Clr Calc Pharmacy 26.4 ml/min; Est GFR (African American) 36.8; Est GFR (Non-African American) 31.8; Magnesium 2.2 mg/dl (1.8-2.4); Potassium 4.2 mmol/L (3.5-5.1)
--- NOTE | 2018-07-05 15:16 | XRay Report ---
XR chest 1V portable CLINICAL HISTORY: Sepsis dyspnea COMPARISON STUDY: 05/18/2018 FINDINGS: The bones soft tissues and hemidiaphragms are normal. The cardiomediastinal silhouette is n ormal. The lungs are clear. The pulmonary vasculature is normal. IMPRESSION: Negative chest. The above report was generated using voice recognition software. It may contain grammatical, syntax or spelling errors. Electronically signed by: Clif Motley M.D. 07/05/2018 3:14 PM
[2018-07-05 15:27] LABS: Albumin Globulin Ratio 0.8 (0.9-2); Bilirubin,Total 0.2 mg/dl (0.2-1); Globulin 4.1 gm/dl (2.5-4.0); Total Protein 7.4 gm/dl (6.4-8.2); Troponin I 0.017 ng/ml (0-0.045)
[2018-07-05] MEDS ORDERED: HydrALAZINE HCL 20 MG/ML VIAL IV STA (15:41)
--- NOTE | 2018-07-05 15:49 | CT Scan Report ---
CT head/brain wo con CT DOSE: HISTORY: confusion TECHNIQUE: Multiaxial CT images of the head were performed without the use of intravenous contrast. A dose lowering technique was utilized adhering to the principles of ALARA. Comparison: None. Findings: The paranasal sinuses and mastoid air cells are clear. The calvarium and skull base are int act. The ventricles and sulci are within normal limits. There is no mass, hematoma, midline shift, or acute infarct. Impression: No acute intracranial abnormality. The above report was generated using voice recognition software. It may contain grammatical, syntax or spelling errors. Electronically signed by: Clif Motley M.D. 07/05/2018 3:47 PM
--- NOTE | 2018-07-05 15:52 | CT Scan Report ---
CT abd pelvis wo con CT DOSE: 1089.72 mGy.cm HISTORY: Pain. Nausea. confusion, poss urinary obstruc/infec TECHNIQUE: Multiaxial CT images of the abdomen and pelvis were performed without contrast. A dose lo wering technique was utilized adhering to the principles of ALARA. COMPARISON STUDY: 05/18/2018 FINDINGS: Lung bases are clear. Atrophy of the [place] kidneys. Fatty Replacement of the pancreas. Con figuration of liver and spleen are unremarkable. Nonobstructive bowel pattern. Pelvic left renal transplant showing no evidence for obstructive change . Bladder is midline. No free fluid within the pelvic cul-de-sac. Scattered colonic diverticuli with no evidence for diverticulitis. IMPRESSION: 1. No acute abnormality of the abdomen or pelvis. 2. Chronic and postoperative changes as discussed. The above report was generated using voice recognition software. It may contain grammatical, syntax or spelling errors. Electronically signed by: Clif Motley M.D. 07/05/2018 3:51 PM
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
[2018-07-05] MEDS ORDERED: ACETAMINOPHEN 500 MG TAB PO PRN (19:10)
[2018-07-05] MEDS ORDERED: PNEUMOCOCCAL ADMINISTRATION CHARGE ONE (20:30)
[2018-07-05] MEDS ORDERED: PNEUMOCOCCAL POLYSACCHARIDES 25 MCG/0.5 ML VIAL/SYR IM ONE (20:30)
[2018-07-05] MEDS ORDERED: BUSPIRONE HCL 10 MG TAB PO SCH (21:00)
[2018-07-05] MEDS: clonazePAM 1 MG TAB PO SCH (21:43)
[2018-07-05] MEDS: INSULIN ASPART 100 UNITS/ML 3 ML PEN SC SCH (21:43)
[2018-07-05] MEDS: SODIUM CHLORIDE 0.9% 1000ML 1,000 ML IV SCH (21:43)
[2018-07-05] MEDS: FERROUS SULFATE 325 MG TAB PO SCH (21:44)
[2018-07-05] MEDS: MYCOPHENOLATE MOFETIL 250 MG CAP PO SCH (21:44)
[2018-07-05] MEDS: BACLOFEN 10 MG TAB PO SCH (21:45)
[2018-07-05] MEDS: cloNIDine HCl 0.1 MG TAB PO SCH (21:45)
[2018-07-05] MEDS: TRAZODONE HCL 100 MG TAB PO SCH (21:45)
[2018-07-05] MEDS: HEPARIN SOD 5,000 UNIT/0.5 ML VIAL SQ SCH (21:47)
[2018-07-06 07:43] LABS: Basophils # (auto) 0.01 K/uL (0-0.2); Basophils % (auto) 0.3 %; Eosinophils % (auto) 2.9 %; Hematocrit (blood only) 31.1 % (37-47); Hemoglobin 10.7 g/dL (12.0-16.0); Immature Granulocytes # (auto) 0.01 K/uL (0.00-0.02); Immature Granulocytes % (auto) 0.3 %; Lymphocytes # (auto) 1.46 K/uL (1.2-3.4); Lymphocytes % (auto) 42.1 %; Mean Corpuscular Hgb Conc 34.4 g/dL (32-36); Mean Corpuscular Volume 87.6 fL (80-100); Mean Platelet Volume 10.1 fL (7.4-10.4); Monocytes # (auto) 0.49 K/uL (0.11-0.59); Monocytes % (auto) 14.1 %; Neutrophils % (auto) 40.3 %; Platelet Count 196 K/uL (130-400); RDW Standard Deviation 44.4 fL (36.4-46.3); Red Blood Count 3.55 M/uL (4.2-5.4); White Blood Count 3.47 K/uL (4.8-10.8)
[2018-07-06 08:03] LABS: BUN Creatinine Ratio 27.6 (10-20); Calcium 8.9 mg/dl (8.5-10.1); Creatinine Clr Calc Pharmacy 37.2 ml/min; Est GFR (African American) 55.6
[2018-07-06] MEDS: SIMVASTATIN 10 MG TAB PO SCH (08:11)
[2018-07-06] MEDS: CITALOPRAM 20 MG TAB PO SCH (08:11)
[2018-07-06] MEDS: CARVEDILOL 12.5 MG TAB PO SCH (08:11)
[2018-07-06] MEDS: BACLOFEN 10 MG TAB PO SCH ×3 (08:11→20:19)
[2018-07-06] MEDS: cycloSPORINE 100 MG CAP PO SCH (08:11)
[2018-07-06] MEDS: FERROUS SULFATE 325 MG TAB PO SCH ×2 (08:11→20:19)
[2018-07-06] MEDS: PANTOprazole 40 MG TAB PO SCH (08:11)
[2018-07-06] MEDS: ARIPiprazole 5 MG TAB PO SCH (08:11)
[2018-07-06] MEDS: LISINOPRIL 10 MG TAB PO SCH (08:11)
[2018-07-06] MEDS: HEPARIN SOD 5,000 UNIT/0.5 ML VIAL SQ SCH ×2 (08:12→20:16)
[2018-07-06] MEDS: INSULIN ASPART 100 UNITS/ML 3 ML PEN SC SCH ×4 (08:12→20:15)
[2018-07-06] MEDS: clonazePAM 1 MG TAB PO SCH ×3 (08:15→20:18)
[2018-07-06] MEDS: SODIUM CHLORIDE 0.9% 1000ML 1,000 ML IV SCH (08:15)
[2018-07-06] MEDS: MYCOPHENOLATE MOFETIL 250 MG CAP PO SCH ×2 (09:12→20:18)
[2018-07-06] MEDS ORDERED: ERTAPENEM SODIUM 500 MG in SODIUM CHLORIDE 0.9% 50 ML IV SCH (14:00)
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
[2018-07-06] MEDS: cloNIDine HCl 0.1 MG TAB PO SCH (20:13)
[2018-07-06] MEDS: TRAZODONE HCL 100 MG TAB PO SCH (20:19)
[2018-07-07] MEDS: INSULIN ASPART 100 UNITS/ML 3 ML PEN SC SCH ×2 (08:15→12:18)
[2018-07-07] MEDS: clonazePAM 1 MG TAB PO SCH (08:16)
[2018-07-07] MEDS: BACLOFEN 10 MG TAB PO SCH (08:17)
[2018-07-07] MEDS: cycloSPORINE 100 MG CAP PO SCH (08:17)
[2018-07-07] MEDS: PANTOprazole 40 MG TAB PO SCH (08:17)
[2018-07-07] MEDS: CITALOPRAM 20 MG TAB PO SCH (08:17)
[2018-07-07] MEDS: CARVEDILOL 12.5 MG TAB PO SCH (08:17)
[2018-07-07] MEDS: LISINOPRIL 10 MG TAB PO SCH (08:17)
[2018-07-07] MEDS: MYCOPHENOLATE MOFETIL 250 MG CAP PO SCH (08:18)
[2018-07-07] MEDS: HEPARIN SOD 5,000 UNIT/0.5 ML VIAL SQ SCH (08:18)
[2018-07-07] MEDS: FERROUS SULFATE 325 MG TAB PO SCH (08:18)
[2018-07-07] MEDS: SIMVASTATIN 10 MG TAB PO SCH (08:18)
[2018-07-07] MEDS: ARIPiprazole 5 MG TAB PO SCH (08:19)
[2018-07-07 08:46] LABS: Calcium 9.3 mg/dl (8.5-10.1); Creatinine Clr Calc Pharmacy 41.5 ml/min; Est GFR (Non-African American) 45.7; Magnesium 1.9 mg/dl (1.8-2.4); Potassium 4.5 mmol/L (3.5-5.1)
[2018-07-07 08:47] LABS: Phosphorus 3.1 mg/dl (2.5-4.9)
[2018-07-07] MEDS ORDERED: cefTRIAXone SODIUM 1,000 MG in DEXTROSE 5% 50 ML IV SCH (11:00)
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
== END 2018-07-07 13:43 | DRG 690 ==
LOC: ED 13:34 → 2W 17:09 → SUATTDRO 17:09 → 2W 18:11

== ENCOUNTER 2018-09-04 16:47 | Inpatient (IN) ==
--- OUTSIDE RECORDS SUMMARY | 2018-09-04 16:50 | External Medical Summary | Continuity of Care Document ---
:1960 Author Name Navarro Kaur, Provider Address Unavailable Unavailable , Care Team Providers Name Role Phone Unavailable Unavailable Unavailable Brigida Kaur, [email or web address] Isatu Kaur, [email or web address] BERNADETTE CAVAZOS M.D., CIARA Webb Unavailable Un available Unavailable Unavailable Unavailable Problems Insomnia (780.52) (G47.00) Rhinitis (472.0) (J31.0) CAD (coronary artery disease) (414.00) (I25.10) Depression (311) (F32.9) Dyslipidemia (272.4) (E78.5) Poor vision (369.9) (H54.7) PTSD (post-traumatic stress disorder) (309.81) (F43.10) Shoulder pain (719.41) (M25.519) CKD (chronic kidney disease), stage III (585.3) (N18.3) Vitamin D deficiency (268.9) (E55.9) Bacterial UTI (599.0) (N39.0) ESBL (extended spectrum beta-lactamase) producing bacteria infection (041.89) (A49.9) Lupus (710.0) (M32.9) Joint pain (719.40) (M25.50) Systemic lupus erythematosus (710.0) (M32.9) Encounter for routine gynecological examination (V72.31) (Z0 1.419) UTI (urinary tract infection) (599.0) (N39.0) Hypercholesterolemia (272.0) (E78.00) Depression with anxiety (300.4) (F41.8) E-coli UTI (599.0) (N39.0) GERD without esophagitis (530.81) (K21.9) Lumbar degenerative disc disease (722.52) (M51.36) Diarrhea (787.91) (R19.7) Transplanted kidney (V42.0) (Z94.0) Hypertension (401.9) (I10) Urinary incontinence (788.30) (R32) Personality disorder (301.9) (F60.9) Diabetes mellitus (250.00) (E11.9) Allergies and Adverse Reactions Imodium (Allergy) Reaction: Rash, Itch ing metFORMIN HCl TABS (Allergy) Reaction: D iarrhea Penicillins (Allergy) Reaction: Rash Vancomycin HCl SOLR (Allergy) Reaction: Rash, Itching Medications cycloSPORINE 25 MG Oral Capsule; TAKE 3 CAPSULE Twice daily Vincent Lunsford Start: 15-May-2018 Quantity: 180 Refills: 0 Wellbutrin TABS; TAKE 1 TABLET DAILY. , M.D. Refills: 0 LORazepam TABS; TAKE 1 TABLET DAILY DIRECTED. , M.D. Refills: 0 BuSpar TABS; TAKE 1 TABLET 2- 3 TIMES DAILY. , M.D. Refills: 0 Basaglar KwikPen 100 UNIT/ML Subcutaneou s Solution Pen-injector; INJECT 20 UNIT Daily , M.D. Start: 11-Jun-2018 Refills: 0 3 ML Pen Carvedilol 12.5 MG Oral Tablet; TAKE 1 TABLET TWICE DAILY. Vincent Celeste Start: 08-Jun-2018 Quantity: 180 Refills: 3 traZODone HCl - 100 MG Oral Tablet; TAKE 1 TABLET AT BEDTIME . , M.DRichi Start: 11-Jun-2016 Refills: 0 Gabapentin 100 MG Oral Capsule; TAKE 3 CAPSULE Daily , M.D. Start: 11-Jun-2016 Refills: 0 Victoza 18 MG/3ML Subcutaneous Solution Pen-injector; INJECT 1.8 MG SUB Q DAILY , M.D. Refills: 0 Lutein 20 MG Oral Capsule; TAKE 1 CAPSULE Daily , M.D. Refills: 0 Ocuvite TABS; TAKE 1 TABLET DAILY. , M.D. Refills: 0 Dexilant 30 MG Oral Capsule Delayed Release; TAKE 1 CA PSULE Daily Juan Cavazos M.D. Refills: 0 [place] Flonase 50 MCG/ACT SUSP; 2 sprays each nostril daily , M.D. Refills: 0 Artificial Tears 0.1-0.3 % Ophthalmic Solution , M.D. Refills: 0 Accu-Chek Comfort Curve STRP , M.D. Refills: 0 Monurol 3 GM Oral Packet; DISSOLVE 1 PAC KET (3 GRAMS) INTO WATER AND DRINK FOR ONE DOSE ONLY , M.D. Start: 24-Jun-2018 Refills: 0 Pravastatin Sodium 20 MG Oral Tablet; TAKE ONE TABLET BY MOUTH AT BEDTIME Vincent Allred Quantity: 90 Ralitsa Refills: 3 Nitrostat 0.4 MG Sublingual Tablet Sublingual , M.D. Refills: 0 Procedures History of Renal Transplant Status: Comp leted History of Oral Surgery Tooth Extraction Status: Completed History of Parathyroid Surgery Status: C ompleted Immunizations Immunizations not documented Family History Mother Family history of myocardial infarction (V17.3) (Z82.49) Sta tus: Active Family history of Alzheimer's disease (V17.2) (Z82.0) Status : Active Family history of hypercholesterolemia (V18.19) (Z83.42) Sta tus: Active Family history of hypertension (V17.49) (Z82.49) Status: Act renay Family history of glaucoma (V19.11) (Z83.511) Status: Active Father Family history of hypercholesterolemia (V18.19) (Z83.42) Sta tus: Active Family history of hypertension (V17.49) (Z82.49) Status: Act renay Family history of lung disease (V19.8) (Z83.6) Status: Activ e Social History - Smoking Status Never smoker Plan of Treatment Planned Observations Planned Goals not documented Results No Known Results Results not documented Encounters Appointment; Cherelle Lunsfrod M.D. 21-Jul-2018 13:10 Encounter Diagnosis: Problem not documented Appointment; Aimee Mora PA-C 24-Jun-2018 15:00 Encounter Diagnosis: Problem not documented Appointment; Ciara Allred M.D. 16:00 Encounter Diagnosis: Problem not documented Appointment; [id number] 09-Jun-2018 15:30 Encounter Diagnosis: Problem not documented Appointment; Cherelle Lunsford M.D. 08-Jun-2018 13:10 Encounter Diagnosis: Problem not documented Appointment; Cherelle Lunsford M.D. 18-May-2018 13:00 Encounter Diagnosis: Problem not documented Appointment; Ruperto Cohen M.D. 04-Jun-2017 15:30 Encounter Diagnosis: Problem not documented Appointment; Db Ortiz DO 27-Jan-2017 13:00 Encounter Diagnosis: Problem not documented Appointment; George Christine M.D. 05-Dec-2016 10:30 Encounter Diagnosis: Problem not documented Appointment; Db Ortiz DO 25-Sep-2016 12:30 Encounter Diagnosis: Problem not documented
--- NOTE | 2018-09-04 18:24 | XRay Report ---
XR chest 1V portable CLINICAL HISTORY: Altered mental status. COMPARISON STUDY: Chest radiograph July 05, 2018. FINDINGS: There is no pneumothorax or pleural effusion. No airspace opacities are present. Pulmonary vascularity is normal. Cardiomediastinal silhouette is stable. There are a few old left rib fractures . IMPRESSION: No acute cardiopulmonary findings. Electronically signed by: Florian Ro M.D. 09/04/2018 6:22 PM
[2018-09-04 18:29] LABS: Basophils # (auto) 0.02 K/uL (0-0.2); Basophils % (auto) 0.2 %; Eosinophils # (auto) 0.08 K/uL (0-0.5); Eosinophils % (auto) 0.8 %; Hematocrit (blood only) 33.9 % (37-47); Hemoglobin 11.3 g/dL (12.0-16.0); Immature Granulocytes # (auto) 0.04 K/uL (0.00-0.02); Immature Granulocytes % (auto) 0.4 %; Lymphocytes # (auto) 1.86 K/uL (1.2-3.4); Mean Corpuscular Hgb Conc 33.3 g/dL (32-36); Mean Corpuscular Volume 89.7 fL (80-100); Mean Platelet Volume 10.3 fL (7.4-10.4); Monocytes # (auto) 1.18 K/uL (0.11-0.59); Monocytes % (auto) 11.4 %; Neutrophils # (auto) 7.14 K/uL (1.4-6.5); Neutrophils % (auto) 69.2 %; Platelet Count 209 K/uL (130-400); RDW Coefficient of Variation 14.1 % (11.5-14.5); RDW Standard Deviation 46.2 fL (36.4-46.3); Red Blood Count 3.78 M/uL (4.2-5.4); White Blood Count 10.32 K/uL (4.8-10.8)
[2018-09-04 18:50] LABS: Appearance Urine Turbid (Clear); Bacteria Urine Automated 4+ (Negative); Bilirubin Urine Negative (Negative); Blood Urine 1+ (Negative); Color Urine Yellow; Epithelial Cell Urine Auto >30 /lpf (0-5); Glucose Urine UA Negative (Negative); Ketones Urine Trace (Negative); Leukocyte Esterase Urine 2+ (Negative); Nitrite Urine Negative (Negative); Protein Urine Trace (Negative); RBC Urine Automated 0-4 /hpf (0-4); Specific Gravity Urine 1.023 (1.000-1.030); Urobilinogen Urine Negative (Negative); WBC Urine Automated >30 /hpf (0-5)
--- NOTE | 2018-09-04 18:55 | CT Scan Report ---
CT OF THE HEAD WITHOUT CONTRAST CLINICAL HISTORY: Altered mental status. COMPARISON STUDY: Head CT July 05, 2018. CT DOSE: 843.85 mGy.cm TECHNIQUE: Helical axial images of the head were obtained without IV contrast. Automated exposure con trol was utilized for the study. A dose lowering technique was utilized adhering to the principles o f ALARA. FINDINGS: No acute intracranial hemorrhage, midline shift or mass effect is present. Ventricular syst em is unremarkable. The basilar cisterns are patent. There are no extra-axial collections. Bilateral basal ganglia calcification is noted. There may be an old lacunar infarct within the right cerebellar hemisphere. This is unchanged. White matter hypodensity suggests small vessel disease. There are no findings to suggest acute dural sinus thrombosis or acute territorial infarct. There is no calvarial fracture. There is minimal sinus mucosal thickening. Mastoid air cells are clear. IMPRESSION: No acute intracranial findings. Electronically signed by: Florian Ro M.D. 09/04/2018 6:53 PM
[2018-09-04 19:00] LABS: Alanine Aminotransferase 22 U/L (12-78); Albumin Globulin Ratio 0.8 (0.9-2); Albumin Level 3.3 gm/dl (3.4-5.0); Alkaline Phosphatase 92 U/L (45-117); Aspartate Aminotransferase 10 U/L (15-37); BUN Creatinine Ratio 16.8 (10-20); Bilirubin,Total 0.3 mg/dl (0.2-1); Blood Urea Nitrogen 83 mg/dl (7-18); Calcium 8.9 mg/dl (8.5-10.1); Carbon Dioxide 22 mmol/L (21-32); Chloride 109 mmol/L (98-107); Est GFR (African American) 10.3; Est GFR (Non-African American) 8.9; Globulin 4.2 gm/dl (2.5-4.0); Glucose 196 mg/dl (70-99); Magnesium 2.1 mg/dl (1.8-2.4); Potassium 4.8 mmol/L (3.5-5.1); Sodium 143 mmol/L (136-145); Total Protein 7.5 gm/dl (6.4-8.2); Troponin I 0.121 ng/ml (0-0.045)
[2018-09-04] MEDS ORDERED: SODIUM CHLORIDE 0.9% 1000ML 1,000 ML IV SCH (19:45)
[2018-09-04] MEDS ORDERED: ERTAPENEM SODIUM 500 MG in SODIUM CHLORIDE 0.9% 50 ML IV ONE (19:45)
--- NOTE | 2018-09-04 20:50 | CT Scan Report ---
CT OF THE ABDOMEN AND PELVIS WITHOUT CONTRAST CLINICAL HISTORY: Acute renal failure. COMPARISON STUDY: CT of the abdomen and pelvis July 05, 2018. TECHNIQUE: Axial images of the abdomen and pelvis were obtained without IV contrast. Images were revi ewed in the axial, sagittal, and coronal planes. Automated exposure control was utilized for the christoph dy. A dose lowering technique was utilized adhering to the principles of ALARA. FINDINGS: Moderate cardiomegaly is unchanged. No pneumatosis, free air or portal venous gas is presen t. Evaluation of the abdomen and pelvis is suboptimal on this unenhanced examination. Unenhanced imag es of liver, spleen, adrenal glands and pancreas are unremarkable. As before, both [place] kidneys are markedly atrophic. There is no hydronephrosis within the [place] kidneys. A left lower quadrant renal allograft is unchanged in appearance. Mild collecting system dilatation with trace perinephric infil tration is unchanged. There is no perigraft fluid collection. There is no evidence for a bowel obstru ction. There is no lymphadenopathy. No suspicious osseous lesions are noted. Mild diverticulosis is n oted without evidence for acute diverticulitis. IMPRESSION: 1. No acute process within the abdomen or pelvis on unenhanced exam. 2. Stable appearance of the left lower quadrant renal allograft with slight collecting system dilatat ion and perinephric infiltration. 3. No bowel obstruction. Electronically signed by: Florian Ro M.D. 09/04/2018 8:49 PM
--- NOTE | 2018-09-04 22:44 | History & Physical Report ---
Date of Service September 04, 2018 Assessment & Plan (1) Acute kidney injury superimposed on chronic kidney disease: Acute kidney injury superimposed on chronic kidney disease/renal transplant status with perinephric stranding/multidrug-resistant UTIs, most recently ESBL- Creatinine 4.96 upon admission, with previous range 1.23-2.11. Begun on ertapenem in the ED, and will continue 1 g IV daily, with most recent history of ESBL sensitive to ertapenem. Add daptomycin IV. IV fluid rehydration with normal saline at 125 mils per hour. Repeat laboratories in a.m. Follow urine culture and sensitivities. Continue CellCept and cyclosporine. Consult nephrology Present on Admission?: Yes (2) Kidney transplant status, cadaveric: See above Present on Admission?: Yes (3) UTI (urinary tract infection): See above Present on Admission?: Yes (4) Altered mental status: Likely due to metabolic encephalopathy. Patient has had a history of malingering in the past, and she presently is mouthing words to answers and is difficult to understand, which may be associated with encephalopathy or malingering Present on Admission?: Yes (5) Dehydration: IV fluids NSS at 125 mL's per hour Present on Admission?: Yes (6) Systemic lupus erythematosus: Continue supportive treatment with current medications when she is able to take p.o. Present on Admission?: Yes (7) Borderline personality disorder: Borderline personality disorder/combative behavior/history of hitting police and hospital staff- Presently on Abilify, buspirone, Celexa, clonazepam, clonidine, trazodone and lamotrigine. Continue as she is taking p.o. Present on Admission?: Yes (8) Diabetes: Hold Novolin N. Placed on Accu-Cheks before meals and at bedtime with NovoLog coverage per scale Present on Admission?: Yes (9) CAD (coronary artery disease): CAD/hypertension- Hold lisinopril for now due to acute kidney injury. Record notes taking carvedilol 12.5 mg p.o. in a.m. and clonidine 0.05 mg p.o. at bedtime. Will hold until verified. If needed we will have IV Lopressor. Present on Admission?: Yes (10) GERD (gastroesophageal reflux disease): On omeprazole 20 mg p.o. daily. For now place on famotidine 20 mg IV every 12 hours Present on Admission?: Yes History of Present Illness Chief Complaint: The patient presents to the emergency department with altered mentation, decreased responsiveness and interaction, with most of her HPI and review of systems supplied by corrections officers with her. Primary Care Provider: [facility] The patient is a 58-year-old female with past medical history including renal transplant status, CAD, SLE, TAMARA, hypertension, hyperlipidemia, CKD stage III, hypothyroidism, resistant UTIs and borderline personality disorder, with most r ecent admission to [facility] from 07/05-07/07/2018 for treatment of multidrug- resistant UTI. The patient presents with similar symptoms as previous visit, and was empirically started on ertapenem IV by ED after CT showed perinephric stranding of renal transplant in left lower quadrant. Of note, patient is presently in nursing home due to a history of abusing staff, assaulting police, and hospital staff. Allergies Allergy/AdvReac Type Severity Reaction Status Date / Time Penicillins Allergy Mild ITCHY, Verified 09/04/18 18:00 ANXIETY glipizide Allergy Unknown Unknown Verified 09/04/18 18:00 loperamide Allergy Unknown Unknown Verified 09/04/18 18:00 metformin Allergy Unknown Unknown Verified 09/04/18 18:00 sitagliptin [From Januvia] Allergy Unknown ON Verified 09/04/18 18:00 [facility] vancomycin Allergy Unknown Unknown Verified 09/04/18 18:00 ziprasidone Allergy Unknown itching Verified 09/04/18 18:00 acetaminophen [From Tylenol] Allergy Unknown Verified 09/04/18 18:00 Home Medications Home Medications Medication Instructions Recorded Confirmed Type Novolin N NPH U-100 Insulin 12 unit SUBCUT DIRECTED 07/05/18 09/04/18 History Triple Antibiotic 1 applic TOPICAL BID PRN 07/05/18 09/04/18 History aripiprazole [Abilify] 5 mg PO DAILY 07/05/18 09/04/18 History baclofen 10 mg PO TID 07/05/18 09/04/18 History buspirone 10 mg PO TID 07/05/18 09/04/18 History carvedilol [Coreg] 12.5 mg PO DAILY 07/05/18 09/04/18 History citalopram [Celexa] 20 mg PO DAILY 07/05/18 09/04/18 History clonazepam 1 mg PO TID 07/05/18 09/04/18 History clonidine HCl 0.05 mg PO HS 07/05/18 09/04/18 History cyclosporine 100 mg PO DAILY 07/05/18 09/04/18 History ferrous sulfate 325 mg PO BID 07/05/18 09/04/18 History mycophenolate mofetil [CellCept] 250 mg PO BID 07/05/18 09/04/18 History omeprazole 20 mg PO DAILY 07/05/18 09/04/18 History simvastatin 10 mg PO DAILY 07/05/18 09/04/18 History trazodone 100 mg PO HS 07/05/18 09/04/18 History lamotrigine [Lamictal] 25 mg PO BID 09/04/18 09/04/18 History lisinopril 20 mg PO DAILY 09/04/18 09/04/18 History Past Med/Surg History Medical History Hypertension (Acute) GERD (gastroesophageal reflux disease) Diabetes CAD (coronary artery disease) Cerebrovascular disease (Chronic) "s/p stroke" Sleep apnea (Chronic) Kidney transplant status, cadaveric (Chronic) Systemic lupus erythematosus (Chronic) Mood disorder (Inactive) Acute chest pain Acute kidney injury Chest pain Dehydration E. 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 Physical Exam Physical Exam: The patient is minimally responsive, mouthing answers to questions when she answers, normocephalic and atraumatic, lying in bed and in no acute distress. HEENT--PERRL, EOMI, mucous membranes and oropharynx dry. Neck--supple. No JVD. No bruits. Thyroid normal, trachea midline, no adenopathy. Heart--normal S1 and S2. No murmurs, rubs or gallops. Lungs--clear bilaterally, no respiratory distress, no accessory muscle use. Abdomen--normal bowel sounds and soft. Nontender. Nondistended. Extremities--no cyanosis or clubbing. No edema. There are good distal pulses b/l. Dermatologic--normal skin turgor, normal color, no abnormal lymph nodes, no rash. Neurologic--cranial nerves II through XII grossly intact. Rheumatologic--normal range of motion. Psychiatric--Jessa responsive, mouthing answers to questions Results & Data Vital Signs (Past 12 Hours) Vital Signs Temp Pulse Resp BP Pulse Ox 09/04/18 22:00 56 L 28 H 122/70 98 09/04/18 21:30 57 L 17 148/72 H 99 09/04/18 21:04 57 L 18 138/73 100 09/04/18 21:00 59 L 19 138/73 97 09/04/18 20:48 55 L 18 137/62 99 09/04/18 20:40 57 L 24 99 09/04/18 20:00 57 L 27 H 90/49 L 97 09/04/18 19:30 48 L 14 98/50 L 98 09/04/18 19:00 53 L 14 105/53 L 98 09/04/18 18:30 64 22 142/80 H 90 09/04/18 18:25 58 L 26 H 09/04/18 18:22 60 27 H 131/67 09/04/18 16:53 98.1 F 63 18 110/64 98 Laboratory Results Laboratory Results WBC 10.32 K/uL (4.8-10.8) 09/04/18 18:17 RBC 3.78 M/uL (4.2-5.4) L 09/04/18 18:17 Hgb 11.3 g/dL (12.0-16.0) L 09/04/18 18:17 Hct 33.9 % (37-47) L 09/04/18 18:17 MCV 89.7 fL (80-100) 09/04/18 18:17 MCH 29.9 pg (25-34) 09/04/18 18:17 MCHC 33.3 g/dL (32-36) 09/04/18 18:17 RDW Std Deviation 46.2 fL (36.4-46.3) 09/04/18 18:17 RDW Coeff of Jaspal 14.1 % (11.5-14.5) 09/04/18 18:17 Plt Count 209 K/uL (130-400) 09/04/18 18:17 MPV 10.3 fL (7.4-10.4) 09/04/18 18:17 Immature Gran % (Auto) 0.4 % 09/04/18 18:17 Neut % (Auto) 69.2 % 09/04/18 18:17 Lymph % (Auto) 18.0 % 09/04/18 18:17 Teller % (Auto) 11.4 % 09/04/18 18:17 Eos % (Auto) 0.8 % 09/04/18 18:17 Baso % (Auto) 0.2 % 09/04/18 18:17 Immature Gran # (Auto) 0.04 K/uL (0.00-0.02) H 09/04/18 18:17 Neut # (Auto) 7.14 K/uL (1.4-6.5) H 09/04/18 18:17 Lymph # (Auto) 1.86 K/uL (1.2-3.4) 09/04/18 18:17 Teller # (Auto) 1.18 K/uL (0.11-0.59) H 09/04/18 18:17 Eos # (Auto) 0.08 K/uL (0-0.5) 09/04/18 18:17 Baso # (Auto) 0.02 K/uL (0-0.2) 09/04/18 18:17 Sodium 143 mmol/L (136-145) 09/04/18 18:17 Potassium 4.8 mmol/L (3.5-5.1) 09/04/18 18:17 Chloride 109 mmol/L (98-107) H 09/04/18 18:17 Carbon Dioxide 22 mmol/L (21-32) 09/04/18 18:17 Anion Gap 12.0 (3-11) H 09/04/18 18:17 BUN 83 mg/dl (7-18) H 09/04/18 18:17 Creatinine 4.96 mg/dl (0.6-1.2) H* 09/04/18 18:17 Est Cr Clr Drug Dosing Not Reportable 09/04/18 18:17 Est GFR ( Amer) 10.3 09/04/18 18:17 Est GFR (Non-Af Amer) 8.9 09/04/18 18:17 BUN/Creatinine Ratio 16.8 (10-20) 09/04/18 18:17 Glucose 196 mg/dl (70-99) H 09/04/18 18:17 POC Lactic Acid Sher 1.24 mmol/L (0.90-1.70) 09/04/18 18:24 Calcium 8.9 mg/dl (8.5-10.1) 09/04/18 18:17 Magnesium 2.1 mg/dl (1.8-2.4) 09/04/18 18:17 Total Bilirubin 0.3 mg/dl (0.2-1) 09/04/18 18:17 AST 10 U/L (15-37) L 09/04/18 18:17 ALT 22 U/L (12-78) 09/04/18 18:17 Alkaline Phosphatase 92 U/L (45-117) 09/04/18 18:17 Troponin I 0.121 ng/ml (0-0.045) H* 09/04/18 18:17 Total Protein 7.5 gm/dl (6.4-8.2) 09/04/18 18:17 Albumin 3.3 gm/dl (3.4-5.0) L 09/04/18 18:17 Globulin 4.2 gm/dl (2.5-4.0) H 09/04/18 18:17 Albumin/Globulin Ratio 0.8 (0.9-2) L 09/04/18 18:17 Lipase 278 U/L (73-393) 09/04/18 18:17 Procalcitonin 0.16 ng/ml (0-0.5) 09/04/18 18:17 Urine Color Yellow 09/04/18 18:17 Urine Appearance Turbid (Clear) A 09/04/18 18:17 Urine pH 5.0 (4.5-7.5) 09/04/18 18:17 Ur Specific [place] 1.023 (1.000-1.030) 09/04/18 18:17 Urine Protein Trace (Negative) H 09/04/18 18:17 Urine Glucose (UA) Negative (Negative) 09/04/18 18:17 Urine Ketones Trace (Negative) H 09/04/18 18:17 Urine Blood 1+ (Negative) H 09/04/18 18:17 Urine Nitrite Negative (Negative) 09/04/18 18:17 Urine Bilirubin Negative (Negative) 09/04/18 18:17 Urine Urobilinogen Negative (Negative) 09/04/18 18:17 Ur Leukocyte Esterase 2+ (Negative) H 09/04/18 18:17 Urine WBC (Auto) >30 /hpf (0-5) H 09/04/18 18:17 Urine RBC (Auto) 0-4 /hpf (0-4) 09/04/18 18:17 U Hyaline Cast (Auto) 1-5 /lpf (0-5) 09/04/18 18:17 U Epithel Cells (Auto) >30 /lpf (0-5) H 09/04/18 18:17 Urine Bacteria (Auto) 4+ (Negative) H 09/04/18 18:17 Nasal Screen MRSA (PCR) Negative (Negative) 09/04/18 23:44 Diagnostic Findings [place], [place] [phone] CT Scan Report Patient: DAY SANDOVAL [id number] Date: 09/04/18 MR#: [id number]: [address] [place] [address] Acct ID:[id number]: Date: 1960[facility] Zip: [place] [id number] Age: 58Location: ED Sex: F Room/Bed: Att Phy: Diagnosis: UTI [facility]: [facility] F[facility] Phy: Florian Ro MD Admit Phy: Ordering Phy: Cindy Servin, DO cc: ~ CT OF THE HEAD WITHOUT CONTRAST CLINICAL HISTORY: Altered mental status. COMPARISON STUDY: Head CT July 05, 2018. CT DOSE: 843.85 mGy.cm TECHNIQUE: Helical axial images of the head were obtained without IV contrast. Automated exposure control was utilized for the study. A dose lowering technique was utilized adhering to the principles of ALARA. FINDINGS: No acute intracranial hemorrhage, midline shift or mass effect is present. Ventricular system is unremarkable. The basilar cisterns are patent. There are no extra-axial collections. Bilateral basal ganglia calcification is noted. There may be an old lacunar infarct within the right cerebellar hemisphere. This is unchanged. White matter hypodensity suggests small vessel disease. There are no findings to suggest acute dural sinus thrombosis or acute territorial infarct. There is no calvarial fracture. There is minimal sinus mucosal thickening. Mastoid air cells are clear. IMPRESSION: No acute intracranial findings. Electronically signed by: Florian Ro M.D. 09/04/2018 6:53 PM Dictated: 09/04/181850 Transcribed: 09/04/181850 [place], [place] [phone] XRay Report Patient: DAY SANDOVAL [id number] Date: 09/04/18 MR#: [id number]: [address] [facility] Acct ID:[id number]: Date: 1960ty Zip: [place] [address] Age: 58Location: ED Sex: F Room/Bed: Att Phy: Diagnosis: UTI Ashly [facility] Date: 09/04/18 [facility] Phy: [facility]: Florian Ro MD Admit Phy: Ordering Phy: Cindy Servin DO cc: ~ XR chest 1V portable CLINICAL HISTORY: Altered mental status. COMPARISON STUDY: Chest radiograph July 05, 2018. FINDINGS: There is no pneumothorax or pleural effusion. No airspace opacities are present. Pulmonary vascularity is normal. Cardiomediastinal silhouette is stable. There are a few old left rib fractures. IMPRESSION: No acute cardiopulmonary findings. Electronically signed by: Florian Ro M.D. 09/04/2018 6:22 PM Dictated: 09/04/181820 Transcribed: 09/04/181820 [place], [place] [phone] CT Scan Report Patient: DAY SANDOVAL [id number] Date: 09/04/18 MR#: [id number]: [address] [facility] Acct ID:[id number]: Date: 1960City Zip: [place] [address] Age: 58Location: ED Sex: F Room/Bed: Att Phy: Diagnosis: UTI Ashly [facility]: 09/04/18 [facility] Flor[facility] MD Admit Phy: Ordering Phy: Cindy Servin, DO cc: ~ CT OF THE ABDOMEN AND PELVIS WITHOUT CONTRAST CLINICAL HISTORY: Acute renal failure. COMPARISON STUDY: CT of the abdomen and pelvis July 05, 2018. TECHNIQUE: Axial images of the abdomen and pelvis were obtained without IV contrast. Images were reviewed in the axial, sagittal, and coronal planes. Automated exposure control was utilized for the study. A dose lowering technique was utilized adhering to the principles of ALARA. FINDINGS: Moderate cardiomegaly is unchanged. No pneumatosis, free air or portal venous gas is present. Evaluation of the abdomen and pelvis is suboptimal on this unenhanced examination. Unenhanced images of liver, spleen, adrenal glands and pancreas are unremarkable. As before, both [place] kidneys are markedly atrophic. There is no hydronephrosis within the q[place] kidneys. A left lower quadrant renal allograft is unchanged in appearance. Mild collecting system dilatation with trace perinephric infiltration is unchanged. There is no perigraft fluid collection. There is no evidence for a bowel obstruction. There is no lymphadenopathy. No suspicious osseous lesions are noted. Mild diverticulosis is noted without evidence for acute diverticulitis. IMPRESSION: 1. No acute process within the abdomen or pelvis on unenhanced exam. 2. Stable appearance of the left lower quadrant renal allograft with slight collecting system dilatation and perinephric infiltration. 3. No bowel obstruction. Electronically signed by: Florian Ro M.D. 09/04/2018 8:49 PM Dictated: 09/04/182040 Transcribed: 09/04/182040 Code Status & VTE Plan Code Status Full code VTE Prophylaxis Plan VTE Prophylaxis will be ordered: Yes PG Care Time/CCT Total # of Minutes Spent Total Time Spent with Patient: Total time spent is greater than 50% in coordination of care (as documented) at patient's floor/unit and/or counseling patient: (1) UTI (urinary tract infection) Urinary tract infection type: site unspecified (2) Altered mental status Altered mental status type: unspecified Qualified Code(s): R41.82 - Altered mental status, unspecified (3) Systemic lupus erythematosus Systemic lupus erythematosus type: unspecified Systemic lupus erythematosus organ involvement: glomerular disease Qualified Code(s): M32.14 - Glomerular disease in systemic lupus erythematosus (4) GERD (gastroesophageal reflux disease) Esophagitis presence: esophagitis presence not specified Qualified Code(s): K21.9 - Gastro-esophageal reflux disease without esophagitis (5) Diabetes Diabetes mellitus type: type 2 Diabetes mellitus assisted insulin use: with intermediate accountant use Diabetes mellitus complication status: with unspecified complications Qualified Code(s): E11.8 - Type 2 diabetes mellitus with unspecified complications; 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 transplanted heart: [place] heart Associated angina: angina presence unspecified Qualified Code(s): I25.10 - Atherosclerotic heart disease of [place] coronary artery without angina pectoris
[2018-09-04] MEDS ORDERED: CARBOHYDRATES FOR HYPOGLYCEMIA PO PRN (23:29)
[2018-09-04] MEDS ORDERED: ONDANSETRON INJ 2 MG/ML 2 ML VIAL IV PRN (23:29)
[2018-09-04] MEDS ORDERED: GLUCOSE 10 TABS/TUBE PO PRN (23:29)
[2018-09-04] MEDS ORDERED: GLUCAGON FOR INJ 1 MG VIAL SQ PRN (23:29)
[2018-09-04] MEDS ORDERED: GLUCOSE 40% GEL 15 GM TUBE PO PRN (23:29)
[2018-09-04] MEDS ORDERED: DEXTROSE 50% 50 ML SYRINGE IV PRN (23:29)
[2018-09-05] MEDS: MYCOPHENOLATE MOFETIL 250 MG CAP PO SCH ×3 (00:08→19:41)
[2018-09-05] MEDS: SODIUM CHLORIDE 0.9% 1000ML 1,000 ML IV SCH ×4 (00:11→19:55)
[2018-09-05] MEDS ORDERED: DAPTOMYCIN CONSULT ACTIVE PRN (03:01)
[2018-09-05] MEDS ORDERED: ERTAPENEM CONSULT ACTIVE PRN (03:01)
[2018-09-05] MEDS ORDERED: DAPTOmycin 200 MG in SYRINGE 0 ML IV SCH (04:00)
[2018-09-05] MEDS ORDERED: DAPTOmycin 275 MG in SYRINGE 0 ML IV SCH (04:00)
[2018-09-05] MEDS ORDERED: HALOPERIDOL LACTATE 5 MG/ML 1 ML VIAL IM STA ×4 (05:21→20:26)
[2018-09-05] MEDS ORDERED: HALOPERIDOL LACTATE 5 MG/ML 1 ML VIAL ONE ×2 (05:21→19:34)
[2018-09-05] MEDS ORDERED: LORazepam 1 MG/2 ML VIAL IV STA ×3 (05:22→20:26)
[2018-09-05] MEDS ORDERED: LORazepam 2 MG/4 ML VIAL ONE ×2 (05:22→19:34)
[2018-09-05] MEDS ORDERED: LORAZEPAM IV STA (05:44)
[2018-09-05 07:08] LABS: Basophils # (auto) 0.01 K/uL (0-0.2); Basophils % (auto) 0.1 %; Eosinophils # (auto) 0.06 K/uL (0-0.5); Eosinophils % (auto) 0.8 %; Hemoglobin 10.4 g/dL (12.0-16.0); Immature Granulocytes # (auto) 0.01 K/uL (0.00-0.02); Immature Granulocytes % (auto) 0.1 %; Lymphocytes # (auto) 0.93 K/uL (1.2-3.4); Lymphocytes % (auto) 11.8 %; Mean Corpuscular Hgb Conc 33.5 g/dL (32-36); Mean Corpuscular Volume 89.3 fL (80-100); Mean Platelet Volume 10.9 fL (7.4-10.4); Monocytes # (auto) 0.97 K/uL (0.11-0.59); Monocytes % (auto) 12.3 %; Neutrophils # (auto) 5.93 K/uL (1.4-6.5); Neutrophils % (auto) 74.9 %; Platelet Count 158 K/uL (130-400); RDW Coefficient of Variation 14.2 % (11.5-14.5); RDW Standard Deviation 46.5 fL (36.4-46.3); Red Blood Count 3.47 M/uL (4.2-5.4); White Blood Count 7.91 K/uL (4.8-10.8)
[2018-09-05 07:20] LABS: Partial Thromboplastin Time 27.1 Seconds (21.0-31.0); Prothrombin Time 10.7 Seconds (9.0-12.0)
[2018-09-05 07:28] LABS: Albumin Level 2.7 gm/dl (3.4-5.0); BUN Creatinine Ratio 19.8 (10-20); Calcium 8.3 mg/dl (8.5-10.1); Est GFR (Non-African American) 11.2; Potassium 3.7 mmol/L (3.5-5.1)
[2018-09-05 07:32] LABS: Albumin Globulin Ratio 0.7 (0.9-2); Bilirubin,Total 0.2 mg/dl (0.2-1); Globulin 3.7 gm/dl (2.5-4.0); Total Protein 6.4 gm/dl (6.4-8.2)
[2018-09-05 07:34] LABS: Estimated Average Glucose 137 mg/dl; Hemoglobin A1C 6.4 % (4.5-5.6)
--- NOTE | 2018-09-05 07:56 | Hospitalist Progress Note ---
Date of Service September 05, 2018 Assessment & Plan (1) Acute kidney injury superimposed on chronic kidney disease: Acute kidney injury superimposed on chronic kidney disease/renal transplant status with perinephric stranding/multidrug-resistant UTIs, most recently ESBL- Creatinine has improved hydration will continue the same treatment at this time Begun on ertapenem in the ED, and will continue 1 g IV daily, with most recent history of ESBL sensitive to ertapenem. Add daptomycin IV. From fluid overload Await urine culture and sensitivities. She will continue CellCept and cyclosporine. Consult nephrology to follow with us (2) Kidney transplant status, cadaveric: See above (3) UTI (urinary tract infection): See above, previous history of multiple recurrences (4) Altered mental status: Likely due to metabolic encephalopathy. However she also has a psychological overlay which influences how she interacts with staff (5) Dehydration: IV fluids NSS at 125 mL's per hour (6) Systemic lupus erythematosus: Continue supportive treatment with current medications when she is able to take p.o. (7) Borderline personality disorder: Borderline personality disorder/combative behavior/history of hitting police and hospital staff- Presently on Abilify, buspirone, Celexa, clonazepam, clonidine, trazodone and lamotrigine. Continue as she is taking p.o. (8) Diabetes: Hold Novolin N. Placed on Accu-Cheks before meals and at bedtime with NovoLog coverage per scale (9) CAD (coronary artery disease): CAD/hypertension- Hold lisinopril for now due to acute kidney injury. Record notes taking carvedilol 12.5 mg p.o. in a.m. and clonidine 0.05 mg p.o. at bedtime. Will hold until verified. If needed we will have IV Lopressor. Improved with hydration this is likely not an acute coronary syndrome or non- STEMI but more likely is artifactual from her renal failure. If she has any cardiac symptoms consistent with acute coronary syndrome or EKG changes will consider cardiology evaluation (10) GERD (gastroesophageal reflux disease): On omeprazole 20 mg p.o. daily. Currently switched to famotidine 20 mg IV every 12 hours Subjective Patient refused to speak to me during examination today. She appears in no acute distress she is lying comfortably in telemetry. Review of Systems Review of Systems: Unobtainable due to cognitive status Physical Exam Physical Exam: The patient appeared well nourished and normally developed. She appears in no acute distress Vital signs as documented. Head exam is unremarkable. normocephalic, atraumatic Neck is without jugular venous distension, thyromegaly, or lymphademopathy Lungs are clear to auscultation but diminished at the bases Cardiac exam reveals Rhythm is regular. Systolic ejection murmurs heard Abdominal exam reveals normal bowel sounds, no masses, no organomegaly Extremities are nonedematous and both pedal pulses are present Neurologic exam is feigning sleeping will not respond to my attempts arousing her but she does grimace and spontaneously move extremities not to my command Psychologically for this patient as well as we do she continues to have difficulty challenging us with directions. I do not believe she is attentive more I believe she is feigning unresponsiveness during my examination Skin is warm Dry without bruises or lesions Results & Data Vital Signs (Past 12 Hours) Vital Signs Temp Pulse Pulse Resp BP BP BP 09/05/18 07:04 36.9 C 67 17 116/68 09/05/18 00:00 51 L 09/04/18 23:55 36.6 C 59 L 16 161/71 H 09/04/18 22:00 56 L 28 H 122/70 09/04/18 21:30 57 L 17 148/72 H 09/04/18 21:04 57 L 18 138/73 09/04/18 21:00 59 L 19 138/73 09/04/18 20:48 55 L 18 137/62 09/04/18 20:40 57 L 24 09/04/18 20:00 57 L 27 H 90/49 L Pulse Ox 09/05/18 07:04 96 09/05/18 00:00 09/04/18 23:55 99 09/04/18 22:00 98 09/04/18 21:30 99 09/04/18 21:04 100 09/04/18 21:00 97 09/04/18 20:48 99 09/04/18 20:40 99 09/04/18 20:00 97 PG Care Time/CCT Total # of Minutes Spent Total Time Spent with Patient: Total time spent is greater than 50% in coordination of care (as documented) at patient's floor/unit and/or counseling patient: (1) UTI (urinary tract infection) Urinary tract infection type: site unspecified (2) Systemic lupus erythematosus Systemic lupus erythematosus organ involvement: glomerular disease Systemic lupus erythematosus type: unspecified Qualified Code(s): M32.14 - Glomerular disease in systemic lupus erythematosus (3) Diabetes Diabetes mellitus complication status: with unspecified complications Diabetes mellitus mcfp insulin use: with mcfp use Diabetes mellitus type: type 2 Qualified Code(s): E11.8 - Type 2 diabetes mellitus with unspecified complications; 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 transplanted heart: [place] heart Qualified Code(s): I25.10 - Atherosclerotic heart disease of [place] coronary artery without angina pectoris (5) Altered mental status Altered mental status type: unspecified Qualified Code(s): R41.82 - Altered mental status, unspecified (6) GERD (gastroesophageal reflux disease) Esophagitis presence: esophagitis presence not specified Qualified Code(s): K21.9 - Gastro-esophageal reflux disease without esophagitis
[2018-09-05] MEDS ORDERED: DAPTOmycin 500 MG VIAL IV SCH (09:00)
--- NOTE | 2018-09-05 09:41 | Cardiology Consultation ---
Date of Consultation September 05, 2018 Assessment & Plan (1) Elevated troponin: Patient has very mildly elevated cardiac biomarkers. Unfortunately, she cannot provide any meaningful history. Her EKG is nondiagnostic due to a chronic left bundle branch block. There does not appear to have been a history of recent chest pain. Given her acute comorbidities and significantly elevated creatinine, I suspect that this mild elevation is related to mild demand ischemia given her known prior infarct. Do not believe this represents an acute coronary syndrome. We can continue to trend her markers at this point and if severely elevated consider additional evaluation. However, she appears to be a poor candidate for therapy in any event. Her compliance with medical therapy would be questionable. Also, her compromised renal function would put her at significant risk of complications from either diagnostic or therapeutic angiography. (2) CAD (coronary artery disease): She appears to be on a suboptimal outpatient regimen for coronary artery disease. I think a more potent statin would be recommended. A switch from simvastatin to atorvastatin would be recommended. Increasing her dose to 40 milligrams daily would also be advisable. Given her history of myocardial infarction, anti-platelet agent would also be recommended. If there is some concern regarding aspirin in the setting of her kidney disease, perhaps Plavix could be used as an alternative. (3) Ischemic cardiomyopathy: Her last echocardiogram demonstrated to have mildly reduced ejection fraction. She appears to be well compensated currently. She is on an outpatient regimen consisting of beta-blockade and Doug inhibition. This appears to be adequate currently. In the past she has had LV function which was felt to be worse. However, I do not believe she is a good candidate for any type of ICD or prophylaxis against sudden cardiac given her severe mental illness. (4) Mitral regurgitation: Previous recorded as mild. She does have a murmur on examination. History of Present Illness Reason for Consultation: Elevated troponin Requesting Physician: Kamari Attending Physician: Tray Vaca MD History of Present Illness The patient is a 58-year-old woman with a history of coronary disease having previously undergone percutaneous intervention in the right coronary artery. She was brought to [facility] by the staff at local correctional facility for a change in mental status. Patient has had admissions previously for mental status changes in association with urinary tract infections. She was started on empirically on treatment for urinary tract infection. Course of her evaluation she was noted to have an elevated cardiac troponin. Unfortunately, the patient cannot provide any current information. She suffers from mental illness and also more acute mental status changes. At the time of my interview today she had been administered sedatives and antipsychotics due to erratic behavior the night prior. There has not been reports of other symptoms leading up to her admission. Allergies Allergy/AdvReac Type Severity Reaction Status Date / Time Penicillins Allergy Mild ITCHY, Verified 09/04/18 18:00 ANXIETY glipizide Allergy Unknown Unknown Verified 09/04/18 18:00 loperamide Allergy Unknown Unknown Verified 09/04/18 18:00 metformin Allergy Unknown Unknown Verified 09/04/18 18:00 sitagliptin [From Januvia] Allergy Unknown ON Verified 09/04/18 18:00 LIST-CENTRE.PCMEMR vancomycin Allergy Unknown Unknown Verified 09/04/18 18:00 ziprasidone Allergy Unknown itching Verified 09/04/18 18:00 acetaminophen [From Tylenol] Allergy Unknown Verified 09/04/18 18:00 Home Medications Home Medications Medication Instructions Recorded Confirmed Type Novolin N NPH U-100 Insulin 12 unit SUBCUT DIRECTED 07/05/18 09/04/18 History Triple Antibiotic 1 applic TOPICAL BID PRN 07/05/18 09/04/18 History aripiprazole [Abilify] 5 mg PO DAILY 07/05/18 09/04/18 History baclofen 10 mg PO TID 07/05/18 09/04/18 History buspirone 10 mg PO TID 07/05/18 09/04/18 History carvedilol [Coreg] 12.5 mg PO DAILY 07/05/18 09/04/18 History citalopram [Celexa] 20 mg PO DAILY 07/05/18 09/04/18 History clonazepam 1 mg PO TID 07/05/18 09/04/18 History clonidine HCl 0.05 mg PO HS 07/05/18 09/04/18 History cyclosporine 100 mg PO DAILY 07/05/18 09/04/18 History ferrous sulfate 325 mg PO BID 07/05/18 09/04/18 History mycophenolate mofetil [CellCept] 250 mg PO BID 07/05/18 09/04/18 History omeprazole 20 mg PO DAILY 07/05/18 09/04/18 History simvastatin 10 mg PO DAILY 07/05/18 09/04/18 History trazodone 100 mg PO HS 07/05/18 09/04/18 History lamotrigine [Lamictal] 25 mg PO BID 09/04/18 09/04/18 History lisinopril 20 mg PO DAILY 09/04/18 09/04/18 History Patient History Medical History Hypertension (Acute) GERD (gastroesophageal reflux disease) Diabetes CAD (coronary artery disease) Cerebrovascular disease (Chronic) "s/p stroke" Sleep apnea (Chronic) Kidney transplant status, cadaveric (Chronic) Systemic lupus erythematosus (Chronic) Mood disorder (Inactive) Acute chest pain Acute kidney injury Chest pain Dehydration E. 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 She did not respond to verbal stimuli. She did respond to painful stimuli but would not follow commands. Neuro: Unable to cooperate with exam Neck: Examination of the submandibular region did not reveal any significant lymphadenopathy. Carotids are palpable bilaterally and free of bruits on auscultation. There was no evidence of jugular venous distention. The thyroid was not enlarged. Lungs: Lungs are clear to auscultation bilaterally. There are no rales wheezes or rhonchi. She has normal respiratory effort without use of accessory muscles. There is normal pulmonary excursion. Cardiac: The rhythm was regular. S1 and S2 were normal. Soft holosystolic murmur. The PMI was not markedly displaced on palpation. Abdomen: The abdomen was soft and nontender. Extremities: Patient has bilateral radial pulses that are equal in intensity. There is no evidence cyanosis or clubbing. There was no evidence of significant peripheral edema bilaterally. Skin: There are no rashes noted on examination today. Results & Data Vital Signs (Past 12 Hours) Vital Signs Temp Pulse Pulse Resp BP BP BP 09/05/18 07:04 36.9 C 67 17 116/68 09/05/18 00:00 51 L 09/04/18 23:55 36.6 C 59 L 16 161/71 H 09/04/18 22:00 56 L 28 H 122/70 Pulse Ox 09/05/18 07:04 96 09/05/18 00:00 09/04/18 23:55 99 09/04/18 22:00 98 Laboratory Results Abnormal Lab Results 09/04/18 09/04/18 09/04/18 18:17 18:17 18:17 WBC 10.32 RBC 3.78 L Hgb 11.3 L Hct 33.9 L MCV 89.7 MCH 29.9 MCHC 33.3 RDW Std Deviation 46.2 RDW Coeff of Jaspal 14.1 Plt Count 209 MPV 10.3 Immature Gran % (Auto) 0.4 Neut % (Auto) 69.2 Lymph % (Auto) 18.0 [place] % (Auto) 11.4 Eos % (Auto) 0.8 Baso % (Auto) 0.2 Immature Gran # (Auto) 0.04 H Neut # (Auto) 7.14 H Lymph # (Auto) 1.86 [place] # (Auto) 1.18 H Eos # (Auto) 0.08 Baso # (Auto) 0.02 PT INR APTT PTT Ratio Sodium 143 Potassium 4.8 Chloride 109 H Carbon Dioxide 22 Anion Gap 12.0 H BUN 83 H Creatinine 4.96 H* Est Cr Clr Drug Dosing Not Reportable Est GFR ( Amer) 10.3 Est GFR (Non-Af Amer) 8.9 BUN/Creatinine Ratio 16.8 Glucose 196 H POC Glucose Estimat Average Glucose Hemoglobin A1c POC Lactic Acid Sher Calcium 8.9 Magnesium 2.1 Total Bilirubin 0.3 AST 10 L ALT 22 Alkaline Phosphatase 92 Troponin I 0.121 H* Total Protein 7.5 Albumin 3.3 L Globulin 4.2 H Albumin/Globulin Ratio 0.8 L Lipase 278 Procalcitonin Urine Color Yellow Urine Appearance Turbid A Urine pH 5.0 Ur Specific [place] 1.023 Urine Protein Trace H Urine Glucose (UA) Negative Urine Ketones Trace H Urine Blood 1+ H Urine Nitrite Negative Urine Bilirubin Negative Urine Urobilinogen Negative Ur Leukocyte Esterase 2+ H Urine WBC (Auto) >30 H Urine RBC (Auto) 0-4 U Hyaline Cast (Auto) 1-5 U Epithel Cells (Auto) >30 H Urine Bacteria (Auto) 4+ H Nasal Screen MRSA (PCR) 09/04/18 09/04/18 09/04/18 18:17 18:24 23:44 WBC RBC Hgb Hct MCV MCH MCHC RDW Std Deviation RDW Coeff of Jaspal Plt Count MPV Immature Gran % (Auto) Neut % (Auto) Lymph % (Auto) [place] % (Auto) Eos % (Auto) Baso % (Auto) Immature Gran # (Auto) Neut # (Auto) Lymph # (Auto) [place] # (Auto) Eos # (Auto) Baso # (Auto) PT INR APTT PTT Ratio Sodium Potassium Chloride Carbon Dioxide Anion Gap BUN Creatinine Est Cr Clr Drug Dosing Est GFR ( Amer) Est GFR (Non-Af Amer) BUN/Creatinine Ratio Glucose POC Glucose Estimat Average Glucose Hemoglobin A1c POC Lactic Acid Sher 1.24 Calcium Magnesium Total Bilirubin AST ALT Alkaline Phosphatase Troponin I Total Protein Albumin Globulin Albumin/Globulin Ratio Lipase Procalcitonin 0.16 Urine Color Urine Appearance Urine pH Ur Specific [place] Urine Protein Urine Glucose (UA) Urine Ketones Urine Blood Urine Nitrite Urine Bilirubin Urine Urobilinogen Ur Leukocyte Esterase Urine WBC (Auto) Urine RBC (Auto) U Hyaline Cast (Auto) U Epithel Cells (Auto) Urine Bacteria (Auto) Nasal Screen MRSA (PCR) Negative 09/05/18 09/05/18 09/05/18 06:49 06:49 06:49 WBC 7.91 RBC 3.47 L Hgb 10.4 L Hct 31.0 L MCV 89.3 MCH 30.0 MCHC 33.5 RDW Std Deviation 46.5 H RDW Coeff of Jaspal 14.2 Plt Count 158 MPV 10.9 H Immature Gran % (Auto) 0.1 Neut % (Auto) 74.9 Lymph % (Auto) 11.8 [place] % (Auto) 12.3 Eos % (Auto) 0.8 Baso % (Auto) 0.1 Immature Gran # (Auto) 0.01 Neut # (Auto) 5.93 Lymph # (Auto) 0.93 L [place] # (Auto) 0.97 H Eos # (Auto) 0.06 Baso # (Auto) 0.01 PT 10.7 INR 1.0 APTT 27.1 PTT Ratio 1.0 Sodium 144 Potassium 3.7 D Chloride 116 H Carbon Dioxide 18 L Anion Gap 10.0 BUN 81 H Creatinine 4.09 H D Est Cr Clr Drug Dosing 13.0 Est GFR ( Amer) 13.0 Est GFR (Non-Af Amer) 11.2 BUN/Creatinine Ratio 19.8 Glucose 165 H POC Glucose Estimat Average Glucose Hemoglobin A1c POC Lactic Acid Sher Calcium 8.3 L Magnesium Total Bilirubin 0.2 AST 10 L ALT 15 Alkaline Phosphatase 78 Troponin I Total Protein 6.4 Albumin 2.7 L Globulin 3.7 Albumin/Globulin Ratio 0.7 L Lipase Procalcitonin Urine Color Urine Appearance Urine pH Ur Specific [place] Urine Protein Urine Glucose (UA) Urine Ketones Urine Blood Urine Nitrite Urine Bilirubin Urine Urobilinogen Ur Leukocyte Esterase Urine WBC (Auto) Urine RBC (Auto) U Hyaline Cast (Auto) U Epithel Cells (Auto) Urine Bacteria (Auto) Nasal Screen MRSA (PCR) 09/05/18 09/05/18 09/05/18 06:49 06:49 07:03 WBC RBC Hgb Hct MCV MCH MCHC RDW Std Deviation RDW Coeff of Jaspal Plt Count MPV Immature Gran % (Auto) Neut % (Auto) Lymph % (Auto) [place] % (Auto) Eos % (Auto) Baso % (Auto) Immature Gran # (Auto) Neut # (Auto) Lymph # (Auto) [place] # (Auto) Eos # (Auto) Baso # (Auto) PT INR APTT PTT Ratio Sodium Potassium Chloride Carbon Dioxide Anion Gap BUN Creatinine Est Cr Clr Drug Dosing Est GFR ( Amer) Est GFR (Non-Af Amer) BUN/Creatinine Ratio Glucose POC Glucose 180 H Estimat Average Glucose 137 Hemoglobin A1c 6.4 H POC Lactic Acid Sher Calcium Magnesium Total Bilirubin AST ALT Alkaline Phosphatase Troponin I 0.103 H* Total Protein Albumin Globulin Albumin/Globulin Ratio Lipase Procalcitonin Urine Color Urine Appearance Urine pH Ur Specific [place] Urine Protein Urine Glucose (UA) Urine Ketones Urine Blood Urine Nitrite Urine Bilirubin Urine Urobilinogen Ur Leukocyte Esterase Urine WBC (Auto) Urine RBC (Auto) U Hyaline Cast (Auto) U Epithel Cells (Auto) Urine Bacteria (Auto) Nasal Screen MRSA (PCR) Diagnostic Findings Cardiac perfusion study performed 01/31/2017 revealed a large fixed inferior defect Echocardiogram performed 06/2017 revealed reduced LV systolic function with inferior akinesis. Ejection fraction 40-45 percent. Mild mitral regurgitation ECG Additional Comments: Normal sinus rhythm with left bundle branch block (1) CAD (coronary artery disease) Coronary Disease-Associated Artery/Lesion type: [place] artery [place] vs. transplanted heart: [place] heart Associated angina: angina presence unspecified Qualified Code(s): I25.10 - Atherosclerotic heart disease of [place] coronary artery without angina pectoris
--- NOTE | 2018-09-05 09:47 | Nephrology Consultation ---
Date of Consultation September 05, 2018 Assessment & Plan (1) Acute on chronic renal insufficiency: -- Clinically dehydrated. Agree w/ stopping HEIDI inhibitor and providing hydration using 0.9NS at 125 cc/hr -- Urinalysis reveals a concentrated sample w/ pyuria suggestive of infection -- Electrolyte balance is acceptable at this time. No acute indication for HD at this time -- Monitor UO, PRP (2) Kidney transplant recipient: -- h/o lupus nephritis s/p DDRT. Baseline creatinine ~ 2.0 -- Continue CSA and MMF at current dose (3) UTI (urinary tract infection): -- h/o MDR UTI -- On Ertapenem and Daptomycin as per primary service -- Await urine cx results (4) Combative behavior: -- Currently incarcerated History of Present Illness Reason for Consultation: IRIS/CKD, DDRT Attending Physician: Tray Vaca MD History of Present Illness Miss Iverson is a 58 year old white female who is seen at the request of Dr. Major for evaluation of IRIS/CKD, DDRT. Medical records in the EMR were reviewed today and are summarized as follows: Miss Iverson was diagnosed w/ SLE when she was 13 years of age. Her lupus was complicated by nephritis and she progressed to ESRD. Initially she was on peritoneal dialysis but then [place] [facility] [place]. Recently she has established care w/ Dr. Lunsford for transplant monitoring but has been poorly compliant w/ office visits. Medical records from the [facility] list her immunosuppressive regimen as CSA 100 mg po daily and MMF 250 mg po BID. Her baseline creatinine has been ~ 2.0. Miss Iverson's medical history is also significant for borderline personality disorder/combativeness resulting in incarceration, recurrent MDR UTI, HTN, DM, TAMARA. Miss Iverson was brought to the ED yesterday for evaluation of confusion. Head CT was negative for bleed. CXR was negative for infiltrate. Abd CT was negative for intraabdominal pathology. Creatinine was elevated at 4.0. Urinalysis did have significant pyuria. Miss Iverson was given a presumptive diagnosis of UTI. She has been admitted for IV antibiotic therapy. She is now on Ertapenem. Urine culture results are pending. Patient is somnolent this morning due to Haldol administration last evening Allergies Allergy/AdvReac Type Severity Reaction Status Date / Time Penicillins Allergy Mild ITCHY, Verified 09/04/18 18:00 ANXIETY glipizide Allergy Unknown Unknown Verified 09/04/18 18:00 loperamide Allergy Unknown Unknown Verified 09/04/18 18:00 metformin Allergy Unknown Unknown Verified 09/04/18 18:00 sitagliptin [From Januvia] Allergy Unknown ON Verified 09/04/18 18:00 LIST-CENTRE.PCMEMR vancomycin Allergy Unknown Unknown Verified 09/04/18 18:00 ziprasidone Allergy Unknown itching Verified 09/04/18 18:00 acetaminophen [From Tylenol] Allergy Unknown Verified 09/04/18 18:00 Home Medications Home Medications Medication Instructions Recorded Confirmed Type Novolin N NPH U-100 Insulin 12 unit SUBCUT DIRECTED 07/05/18 09/04/18 History Triple Antibiotic 1 applic TOPICAL BID PRN 07/05/18 09/04/18 History aripiprazole [Abilify] 5 mg PO DAILY 07/05/18 09/04/18 History baclofen 10 mg PO TID 07/05/18 09/04/18 History buspirone 10 mg PO TID 07/05/18 09/04/18 History carvedilol [Coreg] 12.5 mg PO DAILY 07/05/18 09/04/18 History citalopram [Celexa] 20 mg PO DAILY 07/05/18 09/04/18 History clonazepam 1 mg PO TID 07/05/18 09/04/18 History clonidine HCl 0.05 mg PO HS 07/05/18 09/04/18 History cyclosporine 100 mg PO DAILY 07/05/18 09/04/18 History ferrous sulfate 325 mg PO BID 07/05/18 09/04/18 History mycophenolate mofetil [CellCept] 250 mg PO BID 07/05/18 09/04/18 History omeprazole 20 mg PO DAILY 07/05/18 09/04/18 History simvastatin 10 mg PO DAILY 07/05/18 09/04/18 History trazodone 100 mg PO HS 07/05/18 09/04/18 History lamotrigine [Lamictal] 25 mg PO BID 09/04/18 09/04/18 History lisinopril 20 mg PO DAILY 09/04/18 09/04/18 History Patient History Medical History Hypertension (Acute) GERD (gastroesophageal reflux disease) Diabetes CAD (coronary artery disease) Cerebrovascular disease (Chronic) "s/p stroke" Sleep apnea (Chronic) Kidney transplant status, cadaveric (Chronic) Systemic lupus erythematosus (Chronic) Mood disorder (Inactive) Acute chest pain Acute kidney injury Chest pain Dehydration E. coli septicemia Elevated troponin Generalized weakness Hyperglycemia MDRO (multiple drug resistant organisms) resistance Odontalgia Sepsis UTI (urinary tract infection) Urinary tract infection due to extended-spectrum beta lactamase (ESBL) producing Escherichia coli Surgical History Status post coronary artery stent placement "RCA 2006" Status post parathyroidectomy Family History Other Heart disease Social History Preferred Language: Macedonian Communication Ability: Effective Visual Impairment: Partially Limited Hearing Ability: Normal Mental Health Clinician Required: No Beliefs That Will Affect Care: None marital status: Single Current Living Situation: Other Current Living Situation Comment: [facility] current occupational status: other current occupation: [employer] Feels Safe at Home: Yes Smoking Status: Unknown if ever smoked Hx Alcohol Use: No Hx Substance Use: No Review of Systems Review of Systems: Unobtainable due to reduced consciousness Physical Exam Constitutional: + ill appearing Eyes: PERRL, conjunctivae normal, anicteric sclerae ENMT: external ear and nose normal, oropharynx normal Neck: trachea midline, no thyromegaly Respiratory: normal respiratory effort, lungs clear to auscultation Cardiovascular: RRR, no murmur, no edema Gastrointestinal (Abdomen): normal bowel sounds, soft, nontender, no hepatosplenomegaly Results & Data Vital Signs (Past 12 Hours) Vital Signs Temp Pulse Pulse Resp BP BP BP 09/05/18 07:04 36.9 C 67 17 116/68 09/05/18 00:00 51 L 09/04/18 23:55 36.6 C 59 L 16 161/71 H 09/04/18 22:00 56 L 28 H 122/70 Pulse Ox 09/05/18 07:04 96 09/05/18 00:00 09/04/18 23:55 99 09/04/18 22:00 98 Laboratory Results Laboratory Tests 09/04/18 09/05/18 09/05/18 18:17 06:49 06:49 WBC 7.91 Hgb 10.4 L Hct 31.0 L Plt Count 158 Sodium 144 Potassium 3.7 D Chloride 116 H Carbon Dioxide 18 L BUN 81 H Creatinine 4.09 H D Glucose 165 H Hemoglobin A1c Calcium 8.3 L Urine Color Yellow Urine Appearance Turbid A Urine pH 5.0 Ur Specific [place] 1.023 Urine Protein Trace H Urine Glucose (UA) Negative Urine Ketones Trace H Urine Blood 1+ H Urine Nitrite Negative Ur Leukocyte Esterase 2+ H Urine WBC (Auto) >30 H Urine RBC (Auto) 0-4 U Hyaline Cast (Auto) 1-5 U Epithel Cells (Auto) >30 H Urine Bacteria (Auto) 4+ H 09/05/18 06:49 WBC Hgb Hct Plt Count Sodium Potassium Chloride Carbon Dioxide BUN Creatinine Glucose Hemoglobin A1c 6.4 H Calcium Urine Color Urine Appearance Urine pH Ur Specific [place] Urine Protein Urine Glucose (UA) Urine Ketones Urine Blood Urine Nitrite Ur Leukocyte Esterase Urine WBC (Auto) Urine RBC (Auto) U Hyaline Cast (Auto) U Epithel Cells (Auto) Urine Bacteria (Auto) (1) UTI (urinary tract infection) Urinary tract infection type: site unspecified
[2018-09-05] MEDS: INSULIN ASPART 100 UNITS/ML 3 ML PEN SC SCH ×4 (11:20→20:14)
[2018-09-05] MEDS: ARIPiprazole 5 MG TAB PO SCH (18:09)
[2018-09-05] MEDS: cycloSPORINE 100 MG CAP PO SCH (18:10)
[2018-09-05] MEDS: BACLOFEN 10 MG TAB PO SCH ×3 (18:10→19:42)
[2018-09-05] MEDS: lamoTRIgine 25 MG TAB PO SCH ×2 (18:10→19:42)
[2018-09-05] MEDS: HEPARIN SOD 5,000 UNIT/0.5 ML VIAL SQ SCH ×2 (18:10→20:13)
[2018-09-05] MEDS: ERTAPENEM SODIUM 500 MG in SODIUM CHLORIDE 0.9% 50 ML IV SCH (19:56)
[2018-09-06] MEDS ORDERED: LORazepam 1 MG/2 ML VIAL IV STA ×3 (00:36→22:55)
[2018-09-06] MEDS ORDERED: HALOPERIDOL LACTATE 5 MG/ML 1 ML VIAL IM STA ×3 (00:36→21:46)
[2018-09-06] MEDS ORDERED: HALOPERIDOL LACTATE 5 MG/ML 1 ML VIAL ONE ×2 (00:39→01:03)
[2018-09-06] MEDS ORDERED: LORazepam 2 MG/4 ML VIAL ONE ×2 (00:39→01:03)
--- NOTE | 2018-09-06 01:20 | Emergency Department Note ---
Entered by Chrissie Bolivar acting as a scribe for Cindy Servin DO History of Present Illness General Chief complaint: Urinary Symptoms Stated complaint: UTI Time Seen by Provider: 09/04/18 16:58 Source: patient and other (CO) History of Present Illness Onset (ago): unknown (this evening) Location: left and right (generalized) Pain Consistency: + constant Quality: + other (confusion) Associated symptoms: + denies other symptoms (abdominal pain, urinary symptoms ) This HPI is limited secondary to patient's AMS. The patient is a 58 year old female who presents to the Emergency Room with complaints of persistent confusion that started this evening. The patient's evening nurses noticed she seemed confused and she was speaking incoherently. The CO states last time this happened she had a UTI. The patient denies any change in urine or abdominal pain. Home Medications Home Medications Medication Instructions Recorded Confirmed Type Novolin N NPH U-100 Insulin 12 unit SUBCUT DIRECTED 07/05/18 09/04/18 History Triple Antibiotic 1 applic TOPICAL BID PRN 07/05/18 09/04/18 History aripiprazole [Abilify] 5 mg PO DAILY 07/05/18 09/04/18 History baclofen 10 mg PO TID 07/05/18 09/04/18 History buspirone 10 mg PO TID 07/05/18 09/04/18 History carvedilol [Coreg] 12.5 mg PO DAILY 07/05/18 09/04/18 History citalopram [Celexa] 20 mg PO DAILY 07/05/18 09/04/18 History clonazepam 1 mg PO TID 07/05/18 09/04/18 History clonidine HCl 0.05 mg PO HS 07/05/18 09/04/18 History cyclosporine 100 mg PO DAILY 07/05/18 09/04/18 History ferrous sulfate 325 mg PO BID 07/05/18 09/04/18 History mycophenolate mofetil [CellCept] 250 mg PO BID 07/05/18 09/04/18 History omeprazole 20 mg PO DAILY 07/05/18 09/04/18 History simvastatin 10 mg PO DAILY 07/05/18 09/04/18 History trazodone 100 mg PO HS 07/05/18 09/04/18 History lamotrigine [Lamictal] 25 mg PO BID 09/04/18 09/04/18 History lisinopril 20 mg PO DAILY 09/04/18 09/04/18 History Allergies Allergy/AdvReac Type Severity Reaction Status Date / Time Penicillins Allergy Mild ITCHY, Verified 09/04/18 18:00 ANXIETY glipizide Allergy Unknown Unknown Verified 09/04/18 18:00 loperamide Allergy Unknown Unknown Verified 09/04/18 18:00 metformin Allergy Unknown Unknown Verified 09/04/18 18:00 sitagliptin [From Januvia] Allergy Unknown ON Verified 09/04/18 18:00 [facility] vancomycin Allergy Unknown Unknown Verified 09/04/18 18:00 ziprasidone Allergy Unknown itching Verified 09/04/18 18:00 acetaminophen [From Tylenol] Allergy Unknown Verified 09/04/18 18:00 Past Med/Surg History Medical History Hypertension (Acute) GERD (gastroesophageal reflux disease) Diabetes CAD (coronary artery disease) Cerebrovascular disease (Chronic) "s/p stroke" Sleep apnea (Chronic) Kidney transplant status, cadaveric (Chronic) Systemic lupus erythematosus (Chronic) Mood disorder (Inactive) Acute chest pain Acute kidney injury Chest pain Dehydration E. coli septicemia Elevated troponin Generalized weakness Hyperglycemia MDRO (multiple drug resistant organisms) resistance Odontalgia Sepsis UTI (urinary tract infection) Urinary tract infection due to extended-spectrum beta lactamase (ESBL) producing Escherichia coli Surgical History Status post coronary artery stent placement "RCA 2005" Status post parathyroidectomy Family History Other Heart disease Social History Preferred Language: Czech Communication Ability: Effective Visual Impairment: Partially Limited Hearing Ability: Normal Pattern Fitter Required: No Beliefs That Will Affect Care: None marital status: Single Current Living Situation: Other Current Living Situation Comment: [facility] current occupational status: other 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 Physical Exam Vital Signs Vital Signs - 24 hr 09/04/18 16:53 09/04/18 18:22 09/04/18 18:25 Temperature 98.1 F Temperature Source Oral Sepsis Recent Fever Within 48 Hours No Sepsis Action Taken by Nursing No Action Required Pulse Rate 63 60 58 L Pulse Rate from SpO2 Sensor Pulse Rhythm Regular Pulse Strength Normal Respiratory Rate 18 27 H 26 H Respiratory Effort / Characteristics Non-Labored Spontaneous Respiratory Depth Normal Respiratory Pattern Regular Blood Pressure 110/64 131/67 Blood Pressure Mean 79 88 Blood Pressure Position Sitting Pulse Oximetry 98 Oxygen Delivery Method Room Air 09/04/18 18:30 09/04/18 19:00 09/04/18 19:30 Temperature Temperature Source Sepsis Recent Fever Within 48 Hours Sepsis Action Taken by Nursing Pulse Rate 64 53 L 48 L Pulse Rate from SpO2 Sensor 66 54 L 49 L Pulse Rhythm Pulse Strength Respiratory Rate 22 14 14 Respiratory Effort / Characteristics Respiratory Depth Respiratory Pattern Blood Pressure 142/80 H 105/53 L 98/50 L Blood Pressure Mean 100 70 66 Blood Pressure Position Pulse Oximetry 90 98 98 Oxygen Delivery Method 09/04/18 20:00 09/04/18 20:40 09/04/18 20:48 Temperature Temperature Source Sepsis Recent Fever Within 48 Hours Sepsis Action Taken by Nursing Pulse Rate 57 L 57 L 55 L Pulse Rate from SpO2 Sensor 56 L 60 55 L Pulse Rhythm Pulse Strength Respiratory Rate 27 H 24 18 Respiratory Effort / Characteristics Respiratory Depth Respiratory Pattern Blood Pressure 90/49 L 137/62 Blood Pressure Mean 62 87 Blood Pressure Position Pulse Oximetry 97 99 99 Oxygen Delivery Method Room Air GENERAL: alert, well appearing, well nourished, no distress, non-toxic. Spit mask in place. EYE EXAM: normal conjunctiva, PERRL and EOM's grossly intact OROPHARYNX: no exudate, no erythema, lips, buccal mucosa, and tongue normal and mucous membranes are moist NECK: supple, no nuchal rigidity, no adenopathy, non-tender LUNGS: Clear to auscultation. Normal chest wall mechanics. No wheezes, rhonchi, or rales. HEART: no murmurs, S1 normal and S2 normal ABDOMEN: abdomen soft, non-tender, normo-active bowel sounds, no masses, no rebound or guarding. BACK: Back is symmetrical on inspection and there is no deformity, no midline tenderness, no CVA tenderness. SKIN: no rashes and no bruising UPPER EXTREMITIES: upper extremities are grossly normal. Nml pulses b/l. LOWER EXTREMITIES: No pitting edema. Nml pulses b/l. NEURO EXAM: Patient responds to voice, opens eyes to command, answers questions appropriately, handcuffs in place in upper extremities. Patient will nor cooperate for other neuro testing. Course 171: The patient was evaluated in room C5. A complete history and physical exam was performed. 1914: Vital signs stable, patient opens eyes to voice, no other change in condition. 2030: I reviewed the patient's case with Dr. Castellano, [facility] Hospitalist. He agrees to evaluate the patient for further management. Consultations Consultation #1: I reviewed the patient's case with Dr. Castellano, [facility] Hospitalist. He agrees to evaluate the patient for further management. Time: 20:30 Administered Medications Aripiprazole (Abilify) 5 mg PO DAILY NICK Stop: 10/05/18 08:59 Last Admin: 09/05/18 18:09 Dose: Not Given Documented by: [id number] Baclofen (Lioresal) 10 mg PO TID NICK Stop: 10/05/18 08:59 Last Admin: 09/05/18 19:42 Dose: Not Given Documented by: [id number] Admin: 09/05/18 18:13 Dose: Not Given Documented by: [id number] Admin: 09/05/18 18:10 Dose: Not Given Documented by: [id number] Cyclosporine (Sandimmune) 100 mg PO DAILY NICK Stop: 10/05/18 08:59 Last Admin: 09/05/18 18:10 Dose: Not Given Documented by: [id number] Heparin Sodium (Porcine) (Heparin Sodium (Porcine)) 5,000 units SQ Q12 NICK Stop: 10/05/18 08:59 Last Admin: 09/05/18 20:13 Dose: Not Given Documented by: [id number] Admin: 09/05/18 18:10 Dose: Not Given Documented by: [id number] Sodium Chloride (Nss 1000ml) 1,000 mls @ 125 mls/hr IV .Q8H NICK Stop: 10/04/18 23:28 Last Admin: 09/05/18 19:55 Dose: 125 mls/hr Documented by: [id number] Infusion: 09/05/18 19:05 Dose: 125 mls/hr Documented by: [id number] Admin: 09/05/18 11:05 Dose: 125 mls/hr Documented by: [id number] Infusion: 09/05/18 11:05 Dose: 125 mls/hr Documented by: [id number] Admin: 09/05/18 03:42 Dose: 125 mls/hr Documented by: [id number] Infusion: 09/05/18 03:42 Dose: 125 mls/hr Documented by: [id number] Admin: 09/05/18 00:11 Dose: 125 mls/hr Documented by: [id number] Ertapenem 500 mg/ Sodium (Chloride) 55 mls @ 100 mls/hr IV Q24H NICK; Protocol Stop: 09/13/18 20:32 Last Infusion: 09/05/18 20:30 Dose: 0 mls/hr Documented by: [id number] Admin: 09/05/18 19:56 Dose: 100 mls/hr Documented by: [id number] Daptomycin 200 mg/ Syringe 4 mls @ 0 mls/min IV Q48H NICK; Protocol Stop: 09/15/18 03:59 Last Admin: 09/05/18 03:39 Dose: 4 mls/min Documented by: [id number] Insulin Aspart (Novolog Flexpen) 0 units SC ACHS NICK Stop: 10/05/18 07:29 Last Admin: 09/05/18 20:14 Dose: Not Given Documented by: [id number] Cosigned by: [id number] Admin: 09/05/18 18:10 Dose: Not Given Documented by: [id number] Cosigned by: [id number] Admin: 09/05/18 13:01 Dose: Not Given Documented by: [id number] Admin: 09/05/18 11:20 Dose: Not Given Documented by: [id number] Cosigned by: [id number] Lamotrigine (Lamictal) 25 mg PO BID NICK Stop: 10/05/18 08:59 Last Admin: 09/05/18 19:42 Dose: Not Given Documented by: [id number] Admin: 09/05/18 18:10 Dose: Not Given Documented by: [id number] Mycophenolate Mofetil (Cellcept) 250 mg PO BID NICK Stop: 10/04/18 23:28 Last Admin: 09/05/18 19:41 Dose: Not Given Documented by: [id number] Admin: 09/05/18 18:09 Dose: Not Given Documented by: [id number] Admin: 09/05/18 00:08 Dose: 250 mg Documented by: [id number] Discontinued Medications Haloperidol Lactate (Haldol) Confirm Administered Dose 5 mg .ROUTE .STK-MED ONE Stop: 09/05/18 05:22 Last Admin: 09/05/18 05:28 Dose: Not Given Documented by: [id number] Haloperidol Lactate (Haldol) 5 mg IM NOW STA Stop: 09/05/18 05:22 Last Admin: 09/05/18 05:26 Dose: 5 mg Documented by: [id number] Haloperidol Lactate (Haldol) 5 mg IM NOW STA Stop: 09/05/18 05:55 Last Admin: 09/05/18 05:45 Dose: 5 mg Documented by: [id number] Haloperidol Lactate (Haldol) 5 mg IM NOW STA Stop: 09/05/18 19:35 Last Admin: 09/05/18 19:40 Dose: 5 mg Documented by: [id number] Haloperidol Lactate (Haldol) Confirm Administered Dose 5 mg .ROUTE .ST-MED ONE Stop: 09/05/18 19:35 Last Admin: 09/05/18 19:40 Dose: Not Given Documented by: [id number] Haloperidol Lactate (Haldol) 5 mg IM NOW STA Stop: 09/05/18 20:27 Last Admin: 09/05/18 20:28 Dose: 5 mg Documented by: [id number] Haloperidol Lactate (Haldol) 5 mg IM NOW STA Stop: 09/06/18 00:37 Last Admin: 09/06/18 00:46 Dose: 5 mg Documented by: [id number] Haloperidol Lactate (Haldol) Confirm Administered Dose 5 mg .ROUTE .STK-MED ONE Stop: 09/06/18 00:40 Last Admin: 09/06/18 00:46 Dose: Not Given Documented by: [id number] Haloperidol Lactate (Haldol) 5 mg IM NOW STA Stop: 09/06/18 00:53 Last Admin: 09/06/18 01:09 Dose: 5 mg Documented by: [id number] Haloperidol Lactate (Haldol) Confirm Administered Dose 5 mg .ROUTE .STK-MED ONE Stop: 09/06/18 01:04 Last Admin: 09/06/18 01:10 Dose: Not Given Documented by: [id number] Ertapenem 500 mg/ Sodium (Chloride) 55 mls @ 110 mls/hr IV NOW ONE Stop: 09/04/18 20:14 Last Infusion: 09/04/18 20:30 Dose: 0 mls/hr Documented by: [id number] Admin: 09/04/18 19:57 Dose: 110 mls/hr Documented by: [id number] Sodium Chloride (Nss 1000ml) 1,000 mls @ 125 mls/hr IV .Q8H NICK Stop: 10/04/18 19:44 Last Infusion: 09/05/18 07:14 Dose: 0 mls/hr Documented by: [id number] Admin: 09/04/18 19:57 Dose: 125 mls/hr Documented by: [id number] Lorazepam (Ativan) 1 mg in 2 mls @ 2 mls/min IV NOW STA Stop: 09/05/18 05:23 Last Admin: 09/05/18 05:27 Dose: 2 mls/min Documented by: [id number] Lorazepam (Ativan) 1.0 mg in 2 mls @ 3 mls/min IV NOW STA Stop: 09/05/18 05:45 Last Admin: 09/05/18 05:49 Dose: 3 mls/min Documented by: [id number] Lorazepam (Ativan) 1 mg in 2 mls @ 2 mls/min IV NOW STA Stop: 09/05/18 19:32 Last Admin: 09/05/18 19:39 Dose: 2 mls/min Documented by: [id number] Lorazepam (Ativan) 1 mg in 2 mls @ 2 mls/min IV NOW STA Stop: 09/05/18 20:27 Last Admin: 09/05/18 20:28 Dose: 2 mls/min Documented by: [id number] Lorazepam (Ativan) 1 mg in 2 mls @ 2 mls/min IV NOW STA Stop: 09/06/18 00:37 Last Admin: 09/06/18 00:45 Dose: 2 mls/min Documented by: [id number] Lorazepam (Ativan) 1 mg in 2 mls @ 2 mls/min IV NOW STA Stop: 09/06/18 00:54 Last Admin: 09/06/18 01:09 Dose: 2 mls/min Documented by: [id number] Lorazepam (Ativan) Confirm Administered Dose 2 mg .ROUTE .[facility]-MED ONE Stop: 09/05/18 05:23 Last Admin: 09/05/18 05:28 Dose: Not Given Documented by: [id number] Lorazepam (Ativan) Confirm Administered Dose 2 mg .ROUTE .STK-MED ONE Stop: 09/05/18 19:35 Last Admin: 09/05/18 19:40 Dose: Not Given Documented by: [id number] Lorazepam (Ativan) Confirm Administered Dose 2 mg .ROUTE .STK-MED ONE Stop: 09/06/18 00:40 Last Admin: 09/06/18 00:46 Dose: Not Given Documented by: [id number] Lorazepam (Ativan) Confirm Administered Dose 2 mg .ROUTE .STK-MED ONE Stop: 09/06/18 01:04 Last Admin: 09/06/18 01:10 Dose: Not Given Documented by: [id number] Medical Decision Making Differential Diagnosis Etiologies such as metabolic, infection, hypoglycemia, electrolyte abnormalities, cardiac sources, intracerebral event, toxicologic, neurologic, as well as others were entertained. Medical Records Attestation: I reviewed the patient's medical records. Home Medications Current Medication List: was personally reviewed by me Laboratory Data Attestation: I reviewed the patient's lab results. Result diagrams: 09/05/18 06:49 09/05/18 06:49 Lab Results 09/04/18 09/04/18 09/04/18 Range/Units 18:17 18:17 18:17 WBC 10.32 (4.8-10.8) K/uL RBC 3.78 L (4.2-5.4) M/uL Hgb 11.3 L (12.0-16.0) g/dL Hct 33.9 L (37-47) % MCV 89.7 (80-100) fL MCH 29.9 (25-34) pg MCHC 33.3 (32-36) g/dL RDW Std Deviation 46.2 (36.4-46.3) fL RDW Coeff of Jaspal 14.1 (11.5-14.5) % Plt Count 209 (130-400) K/uL MPV 10.3 (7.4-10.4) fL Immature Gran % (Auto) 0.4 % Neut % (Auto) 69.2 % Lymph % (Auto) 18.0 % [place] % (Auto) 11.4 % Eos % (Auto) 0.8 % Baso % (Auto) 0.2 % Immature Gran # (Auto) 0.04 H (0.00-0.02) K/uL Neut # (Auto) 7.14 H (1.4-6.5) K/uL Lymph # (Auto) 1.86 (1.2-3.4) K/uL [place] # (Auto) 1.18 H (0.11-0.59) K/uL Eos # (Auto) 0.08 (0-0.5) K/uL Baso # (Auto) 0.02 (0-0.2) K/uL Sodium 143 (136-145) mmol/L Potassium 4.8 (3.5-5.1) mmol/L Chloride 109 H (98-107) mmol/L Carbon Dioxide 22 (21-32) mmol/L Anion Gap 12.0 H (3-11) BUN 83 H (7-18) mg/dl Creatinine 4.96 H* (0.6-1.2) mg/dl Est Cr Clr Drug Dosing Not Reportable Est GFR ( Amer) 10.3 Est GFR (Non-Af Amer) 8.9 BUN/Creatinine Ratio 16.8 (10-20) Glucose 196 H (70-99) mg/dl POC Lactic Acid Sher (0.90-1.70) mmol/L Calcium 8.9 (8.5-10.1) mg/dl Magnesium 2.1 (1.8-2.4) mg/dl Total Bilirubin 0.3 (0.2-1) mg/dl AST 10 L (15-37) U/L ALT 22 (12-78) U/L Alkaline Phosphatase 92 (45-117) U/L Troponin I 0.121 H* (0-0.045) ng/ml Total Protein 7.5 (6.4-8.2) gm/dl Albumin 3.3 L (3.4-5.0) gm/dl Globulin 4.2 H (2.5-4.0) gm/dl Albumin/Globulin Ratio 0.8 L (0.9-2) Lipase 278 (73-393) U/L Procalcitonin (0-0.5) ng/ml Urine Color Yellow Urine Appearance Turbid A (Clear) Urine pH 5.0 (4.5-7.5) Ur Specific [place] 1.023 (1.000-1.030) Urine Protein Trace H (Negative) Urine Glucose (UA) Negative (Negative) Urine Ketones Trace H (Negative) Urine Blood 1+ H (Negative) Urine Nitrite Negative (Negative) Urine Bilirubin Negative (Negative) Urine Urobilinogen Negative (Negative) Ur Leukocyte Esterase 2+ H (Negative) Urine WBC (Auto) >30 H (0-5) /hpf Urine RBC (Auto) 0-4 (0-4) /hpf U Hyaline Cast (Auto) 1-5 (0-5) /lpf U Epithel Cells (Auto) >30 H (0-5) /lpf Urine Bacteria (Auto) 4+ H (Negative) 09/04/18 09/04/18 Range/Units 18:17 18:24 WBC (4.8-10.8) K/uL RBC (4.2-5.4) M/uL Hgb (12.0-16.0) g/dL Hct (37-47) % MCV (80-100) fL MCH (25-34) pg MCHC (32-36) g/dL RDW Std Deviation (36.4-46.3) fL RDW Coeff of Jaspal (11.5-14.5) % Plt Count (130-400) K/uL MPV (7.4-10.4) fL Immature Gran % (Auto) % Neut % (Auto) % Lymph % (Auto) % [place] % (Auto) % Eos % (Auto) % Baso % (Auto) % Immature Gran # (Auto) (0.00-0.02) K/uL Neut # (Auto) (1.4-6.5) K/uL Lymph # (Auto) (1.2-3.4) K/uL [place] # (Auto) (0.11-0.59) K/uL Eos # (Auto) (0-0.5) K/uL Baso # (Auto) (0-0.2) K/uL Sodium (136-145) mmol/L Potassium (3.5-5.1) mmol/L Chloride (98-107) mmol/L Carbon Dioxide (21-32) mmol/L Anion Gap (3-11) BUN (7-18) mg/dl Creatinine (0.6-1.2) mg/dl Est Cr Clr Drug Dosing Est GFR ( Amer) Est GFR (Non-Af Amer) BUN/Creatinine Ratio (10-20) Glucose (70-99) mg/dl POC Lactic Acid Sher 1.24 (0.90-1.70) mmol/L Calcium (8.5-10.1) mg/dl Magnesium (1.8-2.4) mg/dl Total Bilirubin (0.2-1) mg/dl AST (15-37) U/L ALT (12-78) U/L Alkaline Phosphatase (45-117) U/L Troponin I (0-0.045) ng/ml Total Protein (6.4-8.2) gm/dl Albumin (3.4-5.0) gm/dl Globulin (2.5-4.0) gm/dl Albumin/Globulin Ratio (0.9-2) Lipase (73-393) U/L Procalcitonin 0.16 (0-0.5) ng/ml Urine Color Urine Appearance (Clear) Urine pH (4.5-7.5) Ur Specific [place] (1.000-1.030) Urine Protein (Negative) Urine Glucose (UA) (Negative) Urine Ketones (Negative) Urine Blood (Negative) Urine Nitrite (Negative) Urine Bilirubin (Negative) Urine Urobilinogen (Negative) Ur Leukocyte Esterase (Negative) Urine WBC (Auto) (0-5) /hpf Urine RBC (Auto) (0-4) /hpf U Hyaline Cast (Auto) (0-5) /lpf U Epithel Cells (Auto) (0-5) /lpf Urine Bacteria (Auto) (Negative) Imaging Data Radiologist's Impression: Radiology results as stated below per my review and the radiologist's interpretation: XR chest 1V portable CLINICAL HISTORY: Altered mental status. COMPARISON STUDY: Chest radiograph July 05, 2018. FINDINGS: There is no pneumothorax or pleural effusion. No airspace opacities are present. Pulmonary vascularity is normal. Cardiomediastinal silhouette is stable. There are a few old left rib fractures. IMPRESSION: No acute cardiopulmonary findings. Electronically signed by: Florian Ro M.D. 09/04/2018 6:[address] OF THE HEAD WITHOUT CONTRAST CLINICAL HISTORY: Altered mental status. COMPARISON STUDY: Head CT July 05, 2018. CT DOSE: 843.85 mGy.cm TECHNIQUE: Helical axial images of the head were obtained without IV contrast. Automated exposure control was utilized for the study. A dose lowering technique was utilized adhering to the principles of ALARA. FINDINGS: No acute intracranial hemorrhage, midline shift or mass effect is present. Ventricular system is unremarkable. The basilar cisterns are patent. There are no extra-axial collections. Bilateral basal ganglia calcification is noted. There may be an old lacunar infarct within the right cerebellar hemisphere. This is unchanged. White matter hypodensity suggests small vessel disease. There are no findings to suggest acute dural sinus thrombosis or acute territorial infarct. There is no calvarial fracture. There is minimal sinus mucosal thickening. Mastoid air cells are clear. IMPRESSION: No acute intracranial findings. Electronically signed by: Florian Ro M.D. 09/04/2018 6:[address] OF THE ABDOMEN AND PELVIS WITHOUT CONTRAST CLINICAL HISTORY: Acute renal failure. COMPARISON STUDY: CT of the abdomen and pelvis July 05, 2018. TECHNIQUE: Axial images of the abdomen and pelvis were obtained without IV contrast. Images were reviewed in the axial, sagittal, and coronal planes. Automated exposure control was utilized for the study. A dose lowering technique was utilized adhering to the principles of ALARA. FINDINGS: Moderate cardiomegaly is unchanged. No pneumatosis, free air or portal venous gas is present. Evaluation of the abdomen and pelvis is suboptimal on this unenhanced examination. Unenhanced images of liver, spleen, adrenal glands and pancreas are unremarkable. As before, both minto kidneys are markedly atrophic. There is no hydronephrosis within the minto kidneys. A left lower quadrant renal allograft is unchanged in appearance. Mild collecting system dilatation with trace perinephric infiltration is unchanged. There is no perigraft fluid collection. There is no evidence for a bowel obstruction. There is no lymphadenopathy. No suspicious osseous lesions are noted. Mild diverticulosis is noted without evidence for acute diverticulitis. IMPRESSION: 1. No acute process within the abdomen or pelvis on unenhanced exam. 2. Stable appearance of the left lower quadrant renal allograft with slight collecting system dilatation and perinephric infiltration. 3. No bowel obstruction. Electronically signed by: Florian Ro M.D. 09/04/2018 8:49 PM ECG Data Attestation: I personally reviewed and interpreted this ECG as follows: Indication: altered mental status Rate (beats per minute): 61 Rhythm: sinus rhythm Findings: + other (normal axis) and + LBBB; no acute ischemic change and no ectopy Comparison ECG Date: from (07/05/18) Change: no significant change Blood Pressure Blood Pressure Findings: Elevated blood pressure Blood Pressure Disposition: further management by hospitalist GERARDO Narrative Patient sent in from the group home for altered mental status. Patient found to have new renal failure and urinary tract infection. Based on prior cultures, IV antibiotics were ordered after discussion with pharmacy. Patient gently hydrated. Patient hemodynamically stable. Patient well-known to the emergency department. I have a lower suspicion for fulminant sepsis is patient's lactic acid and procalcitonin were negative. Patient's troponin was elevated, however no acute EKG changes, no reported chest pain or trouble breathing. Patient has a history of chronically elevated troponins and the level tonight was similar to prior episodes. Patient with mild anemia noted, however consistent with prior, no reported bleeding, or bleeding dyscrasias. Patient is not anticoagulated. CT abdomen and pelvis performed to rule out obstructive uropathy given new renal failure, this was negative. Case discussed with hospitalist for additional evaluation and management. Impression & Plan Acute renal failure, Altered mental status, UTI (urinary tract infection) Discharge Plan Visit Data *Final* Discharge Date/Time: 09/04/18 23:02 Chief Complaint: Urinary Symptoms Stated Complaint: UTI ED Provider: Cindy Servin Discharge Problem: Acute renal failure, Altered mental status, UTI (urinary tract infection) Patient Disposition: Admitted As Inpatient Discharge Instructions Interventions: ED Discharge Assessment Last Done: 09/04/18 23:02 Discharge Problem: Acute renal failure Qualifiers: Acute renal failure type: unspecified Qualified Code(s): N17.9 - Acute kidney failure, unspecified Altered mental status Qualifiers: Altered mental status type: unspecified Qualified Code(s): R41.82 - Altered mental status, unspecified UTI (urinary tract infection) Qualifiers: Urinary tract infection type: site unspecified The scribe's documentation has been prepared under my direction and personally reviewed by me in its entirety. I confirm that the note above accurately reflects all work, treatment, procedures, and medical decision making performed by me.
[2018-09-06] MEDS ORDERED: OLANZapine 10 MG/2.1 ML SDV IM STA (01:36)
[2018-09-06] MEDS: SODIUM CHLORIDE 0.9% 1000ML 1,000 ML IV SCH ×2 (06:16→17:23)
[2018-09-06 06:20] LABS: Basophils # (auto) 0.03 K/uL (0-0.2); Basophils % (auto) 0.5 %; Eosinophils # (auto) 0.13 K/uL (0-0.5); Eosinophils % (auto) 2.1 %; Hematocrit (blood only) 32.4 % (37-47); Hemoglobin 10.8 g/dL (12.0-16.0); Immature Granulocytes # (auto) 0.01 K/uL (0.00-0.02); Immature Granulocytes % (auto) 0.2 %; Lymphocytes # (auto) 1.61 K/uL (1.2-3.4); Lymphocytes % (auto) 26.3 %; Mean Corpuscular Hgb Conc 33.3 g/dL (32-36); Mean Corpuscular Volume 90.5 fL (80-100); Mean Platelet Volume 10.1 fL (7.4-10.4); Monocytes # (auto) 0.83 K/uL (0.11-0.59); Monocytes % (auto) 13.6 %; Neutrophils # (auto) 3.51 K/uL (1.4-6.5); Neutrophils % (auto) 57.3 %; Platelet Count 176 K/uL (130-400); RDW Coefficient of Variation 14.1 % (11.5-14.5); RDW Standard Deviation 46.8 fL (36.4-46.3); Red Blood Count 3.58 M/uL (4.2-5.4); White Blood Count 6.12 K/uL (4.8-10.8)
[2018-09-06 06:34] LABS: INR 1.1 (0.9-1.1); Prothrombin Time 10.8 Seconds (9.0-12.0)
[2018-09-06 06:56] LABS: Albumin Globulin Ratio 0.7 (0.9-2); Albumin Level 2.9 gm/dl (3.4-5.0); BUN Creatinine Ratio 24.3 (10-20); Bilirubin,Total 0.4 mg/dl (0.2-1); Calcium 8.6 mg/dl (8.5-10.1); Est GFR (African American) 27.2; Est GFR (Non-African American) 23.5; Magnesium 1.8 mg/dl (1.8-2.4); Potassium 3.7 mmol/L (3.5-5.1); Total Protein 6.9 gm/dl (6.4-8.2)
[2018-09-06] MEDS: MYCOPHENOLATE MOFETIL 250 MG CAP PO SCH ×2 (07:49→21:35)
[2018-09-06] MEDS: INSULIN ASPART 100 UNITS/ML 3 ML PEN SC SCH ×4 (07:49→21:35)
[2018-09-06] MEDS: ARIPiprazole 5 MG TAB PO SCH (07:49)
[2018-09-06] MEDS: HEPARIN SOD 5,000 UNIT/0.5 ML VIAL SQ SCH ×2 (07:49→21:35)
[2018-09-06] MEDS: lamoTRIgine 25 MG TAB PO SCH ×2 (07:50→21:35)
[2018-09-06] MEDS: cycloSPORINE 100 MG CAP PO SCH (07:50)
[2018-09-06] MEDS: BACLOFEN 10 MG TAB PO SCH ×2 (07:50→15:09)
--- NOTE | 2018-09-06 09:35 | Nephrology Progress Note ---
Date of Service September 06, 2018 Assessment & Plan (1) Acute on chronic renal insufficiency: -- Patient remains clinically dehydrated. Agree w/ stopping HEIDI inhibitor and continuing hydration using 0.9NS at 125 cc/hr -- Creatinine is nearing baseline. Electrolyte balance is acceptable at this time. No acute indication for HD at this time -- Monitor UO, PRP (2) Kidney transplant recipient: -- h/o lupus nephritis s/p DDRT. Baseline creatinine ~ 2.0 -- Continue CSA and MMF at current dose (3) UTI (urinary tract infection): -- h/o MDR UTI. Current culture shows E. Coli resistant to quinolones and TMP-SMZ, sensitive to PCN and cephalosporin -- On Ertapenem as per primary service (4) Combative behavior: -- Currently incarcerated Subjective Ms. Iverson opens her eyes to voice but remains nonverbal. Correctional staff reports that she was agitated last night and required sedation. Review of Systems Review of Systems: Unobtainable due to reduced consciousness Physical Exam Constitutional: + ill appearing Eyes: PERRL, conjunctivae normal, anicteric sclerae ENMT: external ear and nose normal, oropharynx normal Neck: trachea midline, no thyromegaly Respiratory: normal respiratory effort, lungs clear to auscultation Cardiovascular: RRR, no murmur, no edema Gastrointestinal (Abdomen): normal bowel sounds, soft, nontender, no hepatosplenomegaly Results & Data Vital Signs (Past 12 Hours) Vital Signs Temp Pulse Resp BP Pulse Ox 09/06/18 07:03 36.6 C 53 L 18 150/69 H 98 09/06/18 02:21 71 20 145/78 H 92 Laboratory Results Laboratory Tests 09/06/18 09/06/18 06:08 06:08 WBC 6.12 Hgb 10.8 L Hct 32.4 L Plt Count 176 Sodium 147 H Potassium 3.7 Chloride 121 H Carbon Dioxide 20 L BUN 54 H Creatinine 2.22 H D Glucose 103 H (1) UTI (urinary tract infection) Urinary tract infection type: site unspecified
--- NOTE | 2018-09-06 10:13 | Cardiology Progress Note ---
Date of Service September 06, 2018 Assessment & Plan (1) Elevated troponin: Her markers have been stable. The trajectory is not consistent with an acute coronary syndrome. Mild elevation is likely related to her renal dysfunction and known chronic ischemic heart disease. Unfortunately, she cannot provide any history at this point. However, I do not believe we require any additional intervention at this point. If she were to complain of chest pain this issue could be readdressed. (2) CAD (coronary artery disease): Once the patient's acute clinical condition improves I would advocate institution of atorvastatin 40 milligrams daily and anti-platelet therapy either with aspirin or Plavix. (3) Ischemic cardiomyopathy: She is not appear to be hypoxic. Her lung examination is somewhat difficult as she cannot participate in the exam. However, she seems to be reasonably well compensated. We can monitor her volume status over the course of her admission. She can continue on her beta-sharif and HEIDI-inhibitor once her clinical condition improved. She is not a candidate for an ICD based on her comorbidities. (4) Mitral regurgitation: Previous recorded as mild. She does have a murmur on examination. Subjective The patient had been sedated prior to my examination again today. She was more arousable today but did not follow commands. She has been most examination sleeping is not interactive. Review of Systems Review of Systems: Unobtainable due to cognitive status Physical Exam Physical Exam: She is was somnolent. She responded to verbal stimuli but did not follow commands Neuro: Unable to participated exam Lungs: Lungs are clear. Normal respiratory effort. No expiratory wheezing. Cardiac: The rhythm was regular. S1 and S2 were normal. There are no murmurs on examination. The PMI was not markedly displaced on palpation. Extremities: Patient has bilateral radial pulses that are equal in intensity. There is no evidence cyanosis or clubbing. There was no evidence of significant peripheral edema bilaterally. Skin: There are no rashes noted on examination today. Results & Data Vital Signs (Past 12 Hours) Vital Signs Temp Pulse Resp BP Pulse Ox 09/06/18 07:03 36.6 C 53 L 18 150/69 H 98 09/06/18 02:21 71 20 145/78 H 92 Laboratory Results Abnormal Lab Results 09/05/18 09/05/18 09/05/18 11:04 16:19 20:00 WBC RBC Hgb Hct MCV MCH MCHC RDW Std Deviation RDW Coeff of Jaspal Plt Count MPV Immature Gran % (Auto) Neut % (Auto) Lymph % (Auto) [place] % (Auto) Eos % (Auto) Baso % (Auto) Immature Gran # (Auto) Neut # (Auto) Lymph # (Auto) [place] # (Auto) Eos # (Auto) Baso # (Auto) PT INR Sodium Potassium Chloride Carbon Dioxide Anion Gap BUN Creatinine Est Cr Clr Drug Dosing Est GFR ( Amer) Est GFR (Non-Af Amer) BUN/Creatinine Ratio Glucose POC Glucose 127 H 102 H 160 H Calcium Magnesium Total Bilirubin AST ALT Alkaline Phosphatase Ammonia Total Protein Albumin Globulin Albumin/Globulin Ratio 09/06/18 09/06/18 09/06/18 06:08 06:08 06:08 WBC 6.12 RBC 3.58 L Hgb 10.8 L Hct 32.4 L MCV 90.5 MCH 30.2 MCHC 33.3 RDW Std Deviation 46.8 H RDW Coeff of Jaspal 14.1 Plt Count 176 MPV 10.1 Immature Gran % (Auto) 0.2 Neut % (Auto) 57.3 Lymph % (Auto) 26.3 [place] % (Auto) 13.6 Eos % (Auto) 2.1 Baso % (Auto) 0.5 Immature Gran # (Auto) 0.01 Neut # (Auto) 3.51 Lymph # (Auto) 1.61 [place] # (Auto) 0.83 H Eos # (Auto) 0.13 Baso # (Auto) 0.03 PT 10.8 INR 1.1 Sodium 147 H Potassium 3.7 Chloride 121 H Carbon Dioxide 20 L Anion Gap 6.0 BUN 54 H Creatinine 2.22 H D Est Cr Clr Drug Dosing 24.0 Est GFR ( Amer) 27.2 Est GFR (Non-Af Amer) 23.5 BUN/Creatinine Ratio 24.3 H Glucose 103 H POC Glucose Calcium 8.6 Magnesium 1.8 Total Bilirubin 0.4 AST 16 ALT 17 Alkaline Phosphatase 79 Ammonia Total Protein 6.9 Albumin 2.9 L Globulin 4.0 Albumin/Globulin Ratio 0.7 L 09/06/18 09/06/18 06:11 07:01 WBC RBC Hgb Hct MCV MCH MCHC RDW Std Deviation RDW Coeff of Jaspal Plt Count MPV Immature Gran % (Auto) Neut % (Auto) Lymph % (Auto) [place] % (Auto) Eos % (Auto) Baso % (Auto) Immature Gran # (Auto) Neut # (Auto) Lymph # (Auto) [place] # (Auto) Eos # (Auto) Baso # (Auto) PT INR Sodium Potassium Chloride Carbon Dioxide Anion Gap BUN Creatinine Est Cr Clr Drug Dosing Est GFR ( Amer) Est GFR (Non-Af Amer) BUN/Creatinine Ratio Glucose POC Glucose 93 Calcium Magnesium Total Bilirubin AST ALT Alkaline Phosphatase Ammonia < 10.0 L Total Protein Albumin Globulin Albumin/Globulin Ratio ECG Additional Comments: Telemetry reviewed some episodes of mild bradycardia. No other significant arrhythmias. (1) CAD (coronary artery disease) Coronary Disease-Associated Artery/Lesion type: [place] artery [place] vs. transplanted heart: [place] heart Associated angina: angina presence unspecified Qualified Code(s): I25.10 - Atherosclerotic heart disease of [place] coronary artery without angina pectoris
--- NOTE | 2018-09-06 11:57 | Psychiatric Progress Note ---
Date of Service September 06, 2018 Interval History Chief Complaint "[]". Subjective Subjective Psychiatric consult was cancelled by Dr. Dennis this morning. Physical Exam Vital Signs (Past 24 Hours) Last Vital Signs Temp 37.0 C 09/06/18 10:59 Pulse 64 09/06/18 10:59 Resp 20 09/06/18 10:59 BP 168/83 H 09/06/18 10:59 Pulse Ox 92 09/06/18 10:59 Results & Data Laboratory Results Laboratory Results - last 24 hr 09/05/18 09/05/18 09/06/18 16:19 20:00 06:08 WBC 6.12 RBC 3.58 L Hgb 10.8 L Hct 32.4 L MCV 90.5 MCH 30.2 MCHC 33.3 RDW Std Deviation 46.8 H RDW Coeff of Jaspal 14.1 Plt Count 176 MPV 10.1 Immature Gran % (Auto) 0.2 Neut % (Auto) 57.3 Lymph % (Auto) 26.3 [place] % (Auto) 13.6 Eos % (Auto) 2.1 Baso % (Auto) 0.5 Immature Gran # (Auto) 0.01 Neut # (Auto) 3.51 Lymph # (Auto) 1.61 [place] # (Auto) 0.83 H Eos # (Auto) 0.13 Baso # (Auto) 0.03 PT INR Sodium Potassium Chloride Carbon Dioxide Anion Gap BUN Creatinine Est Cr Clr Drug Dosing Est GFR ( Amer) Est GFR (Non-Af Amer) BUN/Creatinine Ratio Glucose POC Glucose 102 H 160 H Calcium Magnesium Total Bilirubin AST ALT Alkaline Phosphatase Ammonia Total Protein Albumin Globulin Albumin/Globulin Ratio 09/06/18 09/06/18 09/06/18 06:08 06:08 06:11 WBC RBC Hgb Hct MCV MCH MCHC RDW Std Deviation RDW Coeff of Jaspal Plt Count MPV Immature Gran % (Auto) Neut % (Auto) Lymph % (Auto) [place] % (Auto) Eos % (Auto) Baso % (Auto) Immature Gran # (Auto) Neut # (Auto) Lymph # (Auto) [place] # (Auto) Eos # (Auto) Baso # (Auto) PT 10.8 INR 1.1 Sodium 147 H Potassium 3.7 Chloride 121 H Carbon Dioxide 20 L Anion Gap 6.0 BUN 54 H Creatinine 2.22 H D Est Cr Clr Drug Dosing 24.0 Est GFR ( Amer) 27.2 Est GFR (Non-Af Amer) 23.5 BUN/Creatinine Ratio 24.3 H Glucose 103 H POC Glucose Calcium 8.6 Magnesium 1.8 Total Bilirubin 0.4 AST 16 ALT 17 Alkaline Phosphatase 79 Ammonia < 10.0 L Total Protein 6.9 Albumin 2.9 L Globulin 4.0 Albumin/Globulin Ratio 0.7 L 09/06/18 09/06/18 07:01 10:57 WBC RBC Hgb Hct MCV MCH MCHC RDW Std Deviation RDW Coeff of Jaspal Plt Count MPV Immature Gran % (Auto) Neut % (Auto) Lymph % (Auto) [place] % (Auto) Eos % (Auto) Baso % (Auto) Immature Gran # (Auto) Neut # (Auto) Lymph # (Auto) [place] # (Auto) Eos # (Auto) Baso # (Auto) PT INR Sodium Potassium Chloride Carbon Dioxide Anion Gap BUN Creatinine Est Cr Clr Drug Dosing Est GFR ( Amer) Est GFR (Non-Af Amer) BUN/Creatinine Ratio Glucose POC Glucose 93 107 H Calcium Magnesium Total Bilirubin AST ALT Alkaline Phosphatase Ammonia Total Protein Albumin Globulin Albumin/Globulin Ratio Current Inpatient Medications Current Inpatient Medications: Current Inpatient Medications Aripiprazole (Abilify) 5 mg PO DAILY [facility] Stop: 10/05/18 08:59 Last Admin: 09/06/18 07:49 Dose: Not Given Documented by: Baclofen (Lioresal) 10 mg PO TID NICK Stop: 10/05/18 08:59 Last Admin: 09/06/18 07:50 Dose: Not Given Documented by: Cyclosporine (Sandimmune) 100 mg PO DAILY [facility]ICK Stop: 10/05/18 08:59 Last Admin: 09/06/18 07:50 Dose: Not Given Documented by: Dextrose (Dextrose 50%) 25 - 50 ml IV UD PRN; Protocol PRN Reason: Hypoglycemia Protocol Stop: 10/04/18 23:28 Ertapenem (Consult) 1 ea N/A UD PRN PRN Reason: Consult Stop: 10/05/18 03:00 Glucagon (Glucagen) 1 mg SQ UD PRN; Protocol PRN Reason: Hypoglycemia Protocol Stop: 10/04/18 23:28 Glucose (Glucose 40%) 15 - 30 gm PO UD PRN; Protocol PRN Reason: Hypoglycemia Protocol Stop: 10/04/18 23:28 Glucose (Dex4 Glucose) 4 - 8 tabs PO UD PRN; Protocol PRN Reason: Hypoglycemia Protocol Stop: 10/04/18 23:28 Heparin Sodium (Porcine) (Heparin Sodium (Porcine)) 5,000 units SQ Q12 NICK Stop: 10/05/18 08:59 Last Admin: 09/06/18 07:49 Dose: Not Given Documented by: Sodium Chloride (Nss 1000ml) 1,000 mls @ 125 mls/hr IV .Q8H NICK Stop: 10/04/18 23:28 Last Admin: 09/06/18 06:16 Dose: 125 mls/hr Documented by: Ertapenem 500 mg/ Sodium (Chloride) 55 mls @ 100 mls/hr IV Q24H [facility]; Protocol Stop: 09/13/18 20:32 Last Infusion: 09/05/18 20:30 Dose: Infused Documented by: Insulin Aspart (Novolog Flexpen) 0 units SC ACHS NICK Stop: 10/05/18 07:29 Last Admin: 09/06/18 07:49 Dose: Not Given Documented by: Lamotrigine (Lamictal) 25 mg PO BID [facility] Stop: 10/05/18 08:59 Last Admin: 09/06/18 07:50 Dose: Not Given Documented by: Miscellaneous (Carbohydrates For Hypoglycemia) 15 - 30 gm PO UD PRN PRN Reason: Hypoglycemia Treatment Stop: 10/04/18 23:28 Mycophenolate Mofetil (Cellcept) 250 mg PO BID [facility] Stop: 10/04/18 23:28 Last Admin: 09/06/18 07:49 Dose: Not Given Documented by: Ondansetron HCl (Zofran) 4 mg IV Q6H PRN PRN Reason: NAUSEA/VOMITING Stop: 10/04/18 23:28 CPT Code CPT Code [id number]
--- NOTE | 2018-09-06 14:54 | Hospitalist Progress Note ---
Date of Service September 06, 2018 Assessment & Plan (1) Acute kidney injury superimposed on chronic kidney disease: Acute kidney injury superimposed on chronic kidney disease/renal transplant status with perinephric stranding/multidrug-resistant UTIs, most recently ESBL- Creatinine has improved hydration will continue the same treatment at this time Begun on ertapenem in the ED, and will continue 1 g IV daily, with most recent history of ESBL sensitive to ertapenem. did cut gram positive cultures She will continue CellCept and cyclosporine. Consult nephrology to follow with us (2) Kidney transplant status, cadaveric: Remains on rejection meds (3) UTI (urinary tract infection): ESBL (4) Altered mental status: Likely due to metabolic encephalopathy. However she also has a psychological overlay which influences how she interacts with staff. The pt did have significant events overnight, she did have IM Zyprexa, today she is sedate and at times has issues with her airway, I asked for her bed to be moved to assure more close monitoring for airway protection, she is now awake and alert and follows commands, but does have some respiratory rhonchi (5) Dehydration: IV fluids NSS at 125 mL's per hour, recommend continued hydration per nephrology , given some respirtary issues will decrease rate (6) Systemic lupus erythematosus: Continue supportive treatment with current medications when she is able to take p.o. (7) Borderline personality disorder: Borderline personality disorder/combative behavior/history of hitting police and hospital staff- Presently on Abilify, Celexa and lamotrigine. will re begin clonazepam hs, trazadone hs and clonidine (8) Diabetes: Hold Novolin N. Placed on Accu-Cheks before meals and at bedtime with NovoLog coverage per scale (9) CAD (coronary artery disease): CAD/hypertension-Chronic systolic HF last EF in 2018 was 40-45% Hold lisinopril for now due to acute kidney injury. Record notes taking carvedilol 12.5 mg p.o. in a.m. and clonidine 0.05 mg p.o. at bedtime. Will hold until verified. If needed we will have IV Lopressor. Improved with hydration this is likely not an acute coronary syndrome or non- STEMI but more likely is artifactual from her renal failure. If she has any cardiac symptoms consistent with acute coronary syndrome or EKG changes Cardiology does not feel this is an acute event and the elevation of troponin is demand ischemia and also from renal failure (10) GERD (gastroesophageal reflux disease): On omeprazole 20 mg p.o. daily. Currently switched to famotidine 20 mg IV every 12 hours Subjective If he can sundowning. However many of her home nocturnal medications have been discontinued on presentation due to her severely ill state. Last evening she received both Haldol and Zyprexa this morning she is markedly sedated. There was some concerns about airway protection so she is moved to a room which can provide more surveillance. Upon reevaluation the afternoon the patient was able to be aroused to tell me her name, where she is complained of some discomfort as I was performing a very light sternal rub. He does have rhonchorous easily audible respiratory exam and there is some concern concerned that there is level sedation letter from the some aspiration. Initial be checked on 09/07 currently she is having good oxygenation on minimal nasal cannula supplementation is a no focal loss on exam Review of Systems Review of Systems: Unobtainable due to cognitive status Physical Exam Physical Exam: The patient appeared lethargic but was easily awoken Vital signs as documented. Head exam is unremarkable. normocephalic, atraumatic Neck is without jugular venous distension, thyromegaly, or lymphademopathy Lungs are coarse bilaterally with rhonchi at the bases scant wheeze which clears Cardiac exam reveals Rhythm is regular. Systolic ejection murmur Abdominal exam reveals normal bowel sounds, able to palpate her kidney and her lower abdomen, no organomegaly minorly uncomfortable with deep palpation Patient is low back pain more around the lumbar sacral joint area Extremities are nonedematous and both pedal pulses are present Neurologic exam is A&Ox2, he can spontaneously move all extremities Psychologically seems stated and angry Skin is cool and [place] appearing at times Results & Data Vital Signs (Past 12 Hours) Vital Signs Temp Pulse Pulse Resp BP Pulse Ox 09/06/18 14:01 63 23 178/71 H 100 09/06/18 13:04 37 C 65 28 H 184/82 H 100 09/06/18 12:43 36.4 C L 58 L 29 H 161/90 H 100 09/06/18 10:59 37.0 C 64 20 168/83 H 92 09/06/18 08:00 53 L 06/16/19 07:03 36.6 C 53 L 18 150/69 H 98 PG Care Time/CCT Total # of Minutes Spent Total Time Spent with Patient: Total time spent is greater than 50% in coordination of care (as documented) at patient's floor/unit and/or counseling patient: (1) UTI (urinary tract infection) Urinary tract infection type: site unspecified (2) Altered mental status Altered mental status type: unspecified Qualified Code(s): R41.82 - Altered mental status, unspecified (3) Systemic lupus erythematosus Systemic lupus erythematosus type: unspecified Systemic lupus erythematosus organ involvement: glomerular disease Qualified Code(s): M32.14 - Glomerular disease in systemic lupus erythematosus (4) Diabetes Diabetes mellitus type: type 2 Diabetes mellitus oil heaterman insulin use: with oil heaterman use Diabetes mellitus complication status: with unspecified complications Qualified Code(s): E11.8 - Type 2 diabetes mellitus with unspecified complications; Z79.4 - adjunct faculty for medical terminology (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 (5) CAD (coronary artery disease) Coronary Disease-Associated Artery/Lesion type: [place] artery [place] vs. transplanted heart: [place] heart Associated angina: angina presence unspecified Qualified Code(s): I25.10 - Atherosclerotic heart disease of [place] coronary artery without angina pectoris (6) GERD (gastroesophageal reflux disease) Esophagitis presence: esophagitis presence not specified Qualified Code(s): K21.9 - Gastro-esophageal reflux disease without esophagitis
[2018-09-06 15:02] LABS: iSTAT Allen Test Pass; iSTAT Arterial Blood Gas HCO3 16 meg/L (19-24); iSTAT Arterial Blood Gas pCO2 34 mmHg (35-46); iSTAT Arterial Blood Gas pH 7.29 (7.35-7.45); iSTAT Carbon Dioxide 17 mEq/l (24-31); iSTAT Site L Radial
[2018-09-06] MEDS: ERTAPENEM SODIUM 500 MG in SODIUM CHLORIDE 0.9% 50 ML IV SCH (20:29)
[2018-09-06] MEDS ORDERED: clonazePAM 1 MG TAB PO SCH (21:00)
[2018-09-06] MEDS ORDERED: cloNIDine HCl 0.1 MG TAB PO SCH (21:00)
[2018-09-06] MEDS ORDERED: TRAZODONE HCL 50 MG TAB PO SCH (21:00)
[2018-09-07] MEDS ORDERED: OLANZapine 10 MG/2.1 ML SDV IM STA (00:25)
[2018-09-07] MEDS: SODIUM CHLORIDE 0.9% 1000ML 1,000 ML IV SCH (05:11)
[2018-09-07 07:29] LABS: Basophils # (auto) 0.04 K/uL (0-0.2); Basophils % (auto) 0.7 %; Eosinophils # (auto) 0.12 K/uL (0-0.5); Hematocrit (blood only) 31.5 % (37-47); Hemoglobin 10.5 g/dL (12.0-16.0); Immature Granulocytes # (auto) 0.02 K/uL (0.00-0.02); Immature Granulocytes % (auto) 0.3 %; Lymphocytes # (auto) 1.41 K/uL (1.2-3.4); Lymphocytes % (auto) 23.2 %; Mean Corpuscular Hgb Conc 33.3 g/dL (32-36); Mean Corpuscular Volume 89.5 fL (80-100); Mean Platelet Volume 10.4 fL (7.4-10.4); Monocytes # (auto) 0.98 K/uL (0.11-0.59); Monocytes % (auto) 16.1 %; Neutrophils # (auto) 3.51 K/uL (1.4-6.5); Neutrophils % (auto) 57.7 %; Platelet Count 176 K/uL (130-400); RDW Coefficient of Variation 13.9 % (11.5-14.5); RDW Standard Deviation 45.5 fL (36.4-46.3); Red Blood Count 3.52 M/uL (4.2-5.4); White Blood Count 6.08 K/uL (4.8-10.8)
[2018-09-07 07:40] LABS: INR 1.1 (0.9-1.1)
[2018-09-07 07:58] LABS: Albumin Globulin Ratio 0.7 (0.9-2); Albumin Level 2.8 gm/dl (3.4-5.0); BUN Creatinine Ratio 22.7 (10-20); Bilirubin,Total 0.5 mg/dl (0.2-1); Calcium 9.3 mg/dl (8.5-10.1); Creatinine Clr Calc Pharmacy 40.1 ml/min; Est GFR (Non-African American) 41.4; Globulin 3.9 gm/dl (2.5-4.0); Magnesium 1.6 mg/dl (1.8-2.4); Potassium 3.9 mmol/L (3.5-5.1); Total Protein 6.7 gm/dl (6.4-8.2)
[2018-09-07] MEDS: MYCOPHENOLATE MOFETIL 250 MG CAP PO SCH ×2 (08:29→10:23)
[2018-09-07] MEDS: ARIPiprazole 5 MG TAB PO SCH ×2 (08:29→10:22)
[2018-09-07] MEDS: INSULIN ASPART 100 UNITS/ML 3 ML PEN SC SCH ×2 (08:29→12:19)
[2018-09-07] MEDS: HEPARIN SOD 5,000 UNIT/0.5 ML VIAL SQ SCH (08:29)
[2018-09-07] MEDS: CITALOPRAM 20 MG TAB PO SCH ×2 (08:29→10:22)
[2018-09-07] MEDS: lamoTRIgine 25 MG TAB PO SCH ×2 (08:30→10:24)
[2018-09-07] MEDS: cycloSPORINE 100 MG CAP PO SCH ×2 (08:30→10:21)
--- NOTE | 2018-09-07 10:13 | Nephrology Progress Note ---
Date of Service September 07, 2018 Assessment & Plan (1) Acute on chronic renal insufficiency: -- Patient remains clinically dehydrated. -- Continue to hold HEIDI inhibitor -- Continuing hydration using 0.9NS at 100 cc/hr -- Creatinine improving. Electrolyte balance is acceptable at this time. No acute indication for HD at this time -- Monitor UO, PRP (2) Kidney transplant recipient: -- h/o lupus nephritis s/p DDRT. Baseline creatinine ~ 2.0 -- Continue CSA and MMF at current dose (3) UTI (urinary tract infection): -- h/o MDR UTI. Current culture shows E. Coli resistant to quinolones and TMP-SMZ, sensitive to PCN and cephalosporin -- On Ertapenem as per primary service (4) Combative behavior: -- Kecia was agreeable to taking her medications after I spoke with her this morning Subjective Kecia was resting comfortably in bed this morning. She was cooperative during my discussion/exam. She denies fevers or chills. She initially refused medications this morning but was agreeable when I spoke to her. Review of Systems Review of Systems: All systems reviewed & are unremarkable except as noted in HPI & below Physical Exam Constitutional: + ill appearing Eyes: PERRL, conjunctivae normal, anicteric sclerae ENMT: external ear and nose normal, oropharynx normal Neck: trachea midline, no thyromegaly Respiratory: normal respiratory effort, lungs clear to auscultation Cardiovascular: RRR, no murmur, no edema Gastrointestinal (Abdomen): normal bowel sounds, soft, nontender, no hepatosplenomegaly Results & Data Vital Signs (Past 12 Hours) Vital Signs Temp Pulse Pulse Resp BP Pulse Ox 09/07/18 07:25 87 09/07/18 06:27 37.2 C 92 H 16 186/83 H 100 09/07/18 03:33 37.3 C 72 16 165/82 H 97 09/06/18 23:28 36.9 C 74 16 173/94 H 99 Laboratory Results Laboratory Results - last 24 hr 09/06/18 09/06/18 09/06/18 10:57 14:50 16:08 WBC RBC Hgb Hct MCV MCH MCHC RDW Std Deviation RDW Coeff of Jaspal Plt Count MPV Immature Gran % (Auto) Neut % (Auto) Lymph % (Auto) [place] % (Auto) Eos % (Auto) Baso % (Auto) Immature Gran # (Auto) Neut # (Auto) Lymph # (Auto) [place] # (Auto) Eos # (Auto) Baso # (Auto) PT INR Sample Site L Radial POC pH 7.29 L POC pCO2 34 L POC pO2 75 L POC HCO3 16 L POC Total CO2 17 L POC Base Excess -11.0 L POC ABG O2 Sat 93.0 Luis Test Pass O2 Delivery Device Cannula Sodium Potassium Chloride Carbon Dioxide Anion Gap BUN Creatinine Est Cr Clr Drug Dosing Est GFR ( Amer) Est GFR (Non-Af Amer) BUN/Creatinine Ratio Glucose POC Glucose 107 H 122 H Calcium Magnesium Total Bilirubin AST ALT Alkaline Phosphatase Total Protein Albumin Globulin Albumin/Globulin Ratio 09/06/18 09/07/18 09/07/18 20:11 07:04 07:04 WBC 6.08 RBC 3.52 L Hgb 10.5 L Hct 31.5 L MCV 89.5 MCH 29.8 MCHC 33.3 RDW Std Deviation 45.5 RDW Coeff of Jaspal 13.9 Plt Count 176 MPV 10.4 Immature Gran % (Auto) 0.3 Neut % (Auto) 57.7 Lymph % (Auto) 23.2 [place] % (Auto) 16.1 Eos % (Auto) 2.0 Baso % (Auto) 0.7 Immature Gran # (Auto) 0.02 Neut # (Auto) 3.51 Lymph # (Auto) 1.41 [place] # (Auto) 0.98 H Eos # (Auto) 0.12 Baso # (Auto) 0.04 PT 11.0 INR 1.1 Sample Site POC pH POC pCO2 POC pO2 POC HCO3 POC Total CO2 POC Base Excess POC ABG O2 Sat Luis Test O2 Delivery Device Sodium Potassium Chloride Carbon Dioxide Anion Gap BUN Creatinine Est Cr Clr Drug Dosing Est GFR ( Amer) Est GFR (Non-Af Amer) BUN/Creatinine Ratio Glucose POC Glucose 123 H Calcium Magnesium Total Bilirubin AST ALT Alkaline Phosphatase Total Protein Albumin Globulin Albumin/Globulin Ratio 09/07/18 09/07/18 07:04 07:38 WBC RBC Hgb Hct MCV MCH MCHC RDW Std Deviation RDW Coeff of Jaspal Plt Count MPV Immature Gran % (Auto) Neut % (Auto) Lymph % (Auto) [place] % (Auto) Eos % (Auto) Baso % (Auto) Immature Gran # (Auto) Neut # (Auto) Lymph # (Auto) [place] # (Auto) Eos # (Auto) Baso # (Auto) PT INR Sample Site POC pH POC pCO2 POC pO2 POC HCO3 POC Total CO2 POC Base Excess POC ABG O2 Sat Luis Test O2 Delivery Device Sodium 147 H Potassium 3.9 Chloride 117 H Carbon Dioxide 20 L Anion Gap 10.0 BUN 32 H Creatinine 1.39 H D Est Cr Clr Drug Dosing 40.1 Est GFR ( Amer) 48.0 Est GFR (Non-Af Amer) 41.4 BUN/Creatinine Ratio 22.7 H Glucose 128 H POC Glucose 116 H Calcium 9.3 Magnesium 1.6 L Total Bilirubin 0.5 AST 15 ALT 16 Alkaline Phosphatase 79 Total Protein 6.7 Albumin 2.8 L Globulin 3.9 Albumin/Globulin Ratio 0.7 L (1) UTI (urinary tract infection) Urinary tract infection type: site unspecified
--- NOTE | 2018-09-10 08:15 | Coding Query ---
CHRONIC KIDNEY DISEASE To promote full compliance with coding requirements relating to patient care, physician participation is requested in all cases of field crop i farmworker uncertainty. Please assist us with the question(s) below: Coding Question(s): Please specify the known or suspected type by placing an "X" within the parenthesis (x). If other, please document type. Please document Staging if known: ( ) Stage I >90 Kidney damage with normal or elevated GFR. ( ) Stage II 60-89 Kidney damage with mildly decreased kidney function ( ) Stage III 30-59 Moderately decreased kidney function ( ) Stage IV 15-29 Severely decreased kidney function ( ) Stage V <15 Renal failure (or dialysis) ( ) End Stage (xx ) Unknown Thank you Denise TORRES
--- NOTE | 2018-09-15 11:03 | Discharge Summary ---
Date of Service September 07, 2018 Admission HPI Per Admitting Provider The patient is a 58-year-old female with past medical history including renal transplant status, CAD, SLE, TAMARA, hypertension, hyperlipidemia, CKD stage III, hypothyroidism, resistant UTIs and borderline personality disorder, with most recent admission to [facility] from 07/05-07/07/2018 for treatment of multidrug-resistant UTI. The patient presents with similar symptoms as previous visit, and was empirically started on ertapenem IV by ED after CT showed perinephric stranding of renal transplant in left lower quadrant. Of note, patient is presently in fdc due to a history of abusing staff, assaulting police, and hospital staff. Principal Diagnosis UTI/ Acute kidney failure Discharge Exam The patient appears comfortable. Vital signs as documented. Head exam is unremarkable. normocephalic, atraumatic Neck is without jugular venous distension, thyromegaly, or lymphademopathy Lungs are clearer Cardiac exam reveals Rhythm is regular. Systolic ejection murmur Abdominal exam reveals normal bowel sounds, able to palpate her kidney and her lower abdomen, no organomegaly, nontender Patient is low back pain more around the lumbar sacral joint area Extremities are nonedematous and both pedal pulses are present Neurologic exam is A&Ox2, he can spontaneously move all extremities Psychologically seems comfortable. Skin is cool and rome appearing at times Discharge Data Allergies Allergy/AdvReac Type Severity Reaction Status Date / Time Penicillins Allergy Mild ITCHY, Verified 09/04/18 18:00 ANXIETY glipizide Allergy Unknown Unknown Verified 09/04/18 18:00 loperamide Allergy Unknown Unknown Verified 09/04/18 18:00 metformin Allergy Unknown Unknown Verified 09/04/18 18:00 sitagliptin [From Januvia] Allergy Unknown ON Verified 09/04/18 18:00 LIST-CENTRE.PCMEMR vancomycin Allergy Unknown Unknown Verified 09/04/18 18:00 ziprasidone Allergy Unknown itching Verified 09/04/18 18:00 acetaminophen [From Tylenol] Allergy Unknown Verified 09/04/18 18:00 Consultations 09/04/18 19:43 ED Decision to Admit Stat 09/04/18 23:29 Consult Cardiology Routine Consult Case Management - Discharge Planning Routine Consult Nephrology Routine Ordered Studies 09/04/18 18:08 CT head/brain wo con Stat 09/04/18 19:43 CT abd pelvis wo con Stat Hospital Course (1) Acute kidney injury superimposed on chronic kidney disease: Acute kidney injury superimposed on chronic kidney disease/renal transplan t status with perinephric stranding/multidrug-resistant UTIs, most recently ESBL- Creatinine has improved hydration will continue the same treatment at this time Begun on ertapenem in the ED, and will continue 1 g IV daily, with most recent history of ESBL sensitive to ertapenem. did cut gram positive cultures She will continue CellCept and cyclosporine. Consult nephrology to follow with us Appreciate input from Nephro: -- Patient remains clinically dehydrated. -- Continue to hold HEIDI inhibitor -- Continuing hydration using 0.9NS at 100 cc/hr -- Creatinine improving. Electrolyte balance is acceptable at this time. No acute indication for HD at this time -- Monitor UO, PRP Patient will be discharged. Once creatinine improves as an outpatient, may consider restartng lisinopril. (2) Kidney transplant status, cadaveric: Remains on rejection meds (3) UTI (urinary tract infection): ESBL Will discharge on oral antibiotics. 10 day course of cefdinir. (4) Altered mental status: Likely due to metabolic encephalopathy. However she also has a psychological overlay which influences how she interacts with staff. She improved on day of discharge. (5) Dehydration: Iproved with IVF. (6) Systemic lupus erythematosus: Continue supportive treatment with current medications when she is able to take p.o. (7) Borderline personality disorder: Borderline personality disorder/combative behavior/history of hitting police and hospital staff- Presently on Abilify, Celexa and lamotrigine. will re begin clonazepam hs, trazadone hs and clonidine (8) Diabetes: Hold Novolin N. Placed on Accu-Cheks before meals and at bedtime with NovoLog coverage per scale (9) CAD (coronary artery disease): CAD/hypertension-Chronic systolic HF last EF in 2018 was 40-45% Hold lisinopril for now due to acute kidney injury. Record notes taking carvedilol 12.5 mg p.o. in a.m. and clonidine 0.05 mg p.o. at bedtime. Will hold until verified. If needed we will have IV Lopressor. Improved with hydration this is likely not an acute coronary syndrome or non- STEMI but more likely is artifactual from her renal failure. If she has any cardiac symptoms consistent with acute coronary syndrome or EKG changes Cardiology does not feel this is an acute event and the elevation of troponin is demand ischemia and also from renal failure (10) GERD (gastroesophageal reflux disease): On omeprazole 20 mg p.o. daily. Currently switched to famotidine 20 mg IV every 12 hours Total Time Total Time Spent Total Time Spent (In Minutes): 32 Total Time Includes: Examination of the Patient, Discharge Planning and Medication Reconciliation Discharge Plan Discharge Items [facility] Reason For Visit: IRIS ON CKD, AMS Discharge Diagnosis: Acute kidney injury, altered mental status Discharge Goals: Decrease discomfort Activity: Resume your previous activity Non-emergency contact: Primary Care Provider Call non-emergency contact if: you have any medication questions Follow-up/Referrals: [facility] [address],[facility] [Primary Care Provider] - Diet: Carb Consistent or DM2, Dialysis Renal and Heart Healthy Addtl Provider Instructions: Patient can be discharged on a 10 day course of cefidnir. Start course on 6/ (PM) If you refuse medicine, will need to take ceftriazone IM. Will recommend rechecking creatinine in 3 days. Likely will be back to baseline. Once that occurs, may consider restarting lisinopril, perhpas at a lower dose: 10 mg once daily Prescriptions: New trazodone 50 mg Tablet 50 mg PO HS Qty: 0 RF: 0 cefdinir 300 mg capsule 300 mg PO Q12H 10 Days Qty: 20 RF: 0 Continued clonidine HCl 0.1 mg Tablet 0.05 mg PO HS RF: 0 Triple Antibiotic 3.5mg-400 unit- 5,000 unit/gram Ointment 1 applic TOPICAL BID PRN (Reason: Skin Irritation) RF: 0 carvedilol [Coreg] 12.5 mg Tablet 12.5 mg PO DAILY RF: 0 citalopram [Celexa] 10 mg Tablet 20 mg PO DAILY RF: 0 mycophenolate mofetil [CellCept] 250 mg Capsule 250 mg PO BID RF: 0 simvastatin 10 mg Tablet 10 mg PO DAILY RF: 0 clonazepam 1 mg Tablet 1 mg PO TID RF: 0 ferrous sulfate 325 mg (65 mg iron) Tablet 325 mg PO BID RF: 0 buspirone 10 mg Tablet 10 mg PO TID RF: 0 Novolin N NPH U-100 Insulin 100 unit/mL Suspension 12 unit SUBCUT DIRECTED RF: 0 omeprazole 20 mg Capsule,Delayed Release(Dr/Ec) 20 mg PO DAILY RF: 0 cyclosporine 100 mg Capsule 100 mg PO DAILY RF: 0 aripiprazole [Abilify] 5 mg Tablet 5 mg PO DAILY RF: 0 lamotrigine [Lamictal] 25 mg Tablet 25 mg PO BID RF: 0 Changed baclofen 10 mg Tablet 2.5 mg PO TID Qty: 0 RF: 0 Discontinued trazodone 100 mg Tablet 100 mg PO HS RF: 0 lisinopril 20 mg Tablet 20 mg PO DAILY RF: 0 Stand-Alone Forms: [facility] Discharge Orders: Discharge Order (Routine); Ordered 09/07/18 Ordered By: Cholo Leblanc Admission Data Admit Date/Time: 09/04/18 22:40 Attending Provider: Cholo Leblanc Admit Provider: Yasir Castellano Primary Care Provider: [facility] Other Providers: Jayjay Harman ; Db Ortiz Service: Intensive Care Unit Other Interventions: Discharge Summary Assessment (RN) Last Done: 09/07/18 11:55 DC Date/Time DO NOT enter until pt leaves facility: 09/07/18 12:47
== END 2018-09-07 12:47 | DRG 682 ==
LOC: ED 16:47 → 2S 22:40 → SUATTDRO 22:40 → 2S 23:02 → 2E 09-06 12:40
DX: Z94.0 Kidney transplant status; E86.0 Dehydration; G93.41 Metabolic encephalopathy; N17.9 Acute kidney failure, unspecified; N18.9 Chronic kidney disease, unspecified; F60.3 Borderline personality disorder; Z88.0 Allergy status to penicillin; M32.9 Systemic lupus erythematosus, unspecified; I25.10 Atherosclerotic heart disease of native coronary artery without angina pectoris; I12.9 Hypertensive chronic kidney disease with stage 1 through stage 4 chronic kidney disease, or unspecified chronic kidney disease; E11.9 Type 2 diabetes mellitus without complications; N39.0 Urinary tract infection, site not specified; K21.9 Gastro-esophageal reflux disease without esophagitis; R46.89 Other symptoms and signs involving appearance and behavior